=== PATIENT | male | born 1950 | race Caucasian/White ===

== ENCOUNTER 2017-10-23 06:54 | Emergency (ER) | payer OTHER, BC ==
[2017-10-23 07:15] VITALS: BP 153/78; PULSE 84; TEMP 98.3; BMI 20.7
[2017-10-23] MEDS ORDERED: ACETAMINOPHEN 500 MG TABLET (FP) PO ONE (07:41)
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
[2017-10-23] MEDS ORDERED: ACETAMINOPHEN 325 MG TABLET (FP) ONE (07:54)
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
[2017-10-23] MEDS ORDERED: oxyCODONE HCL 5 MG TABLET PO ONE (08:59)
[2017-10-23] MEDS ORDERED: oxyCODONE HCL 5 MG TABLET ONE (09:46)
--- NOTE | 2017-10-23 13:57 | CONSULT ---
Consult Consult Specialty:: Internal Medicine Referred by:: Leti Reason for Consultation:: Assess need for admission - History of Present Illness Chief Complaint: b/l hip pain History of Present Illness: 67 year old male with history of PVD, DM, afib, CKD, CHF, and HTN comes in today complaining of b/l hip pain. He reports he fell 3 days ago. Denies hitting head, loss of consciousness, lightheadedness, or dizziness. He has been able to walk but today feels as he cannot walk because he is having too much pain on b/l hips. He denies taking any analgesics at home. He denies any chest pain, sob, unilateral weakness, n/v/d, fever/chills, changes in vision and recent travel. I witnessed pt to be standing in the room without difficulty upon entering to speak to pt. Pt sat down onto stretcher as I walked in. ED findings unremarkable. Xray hips, ct pelvis negative - History Source History Provided By: Patient Limitations to Obtaining History: No Limitations - Past Medical History Cardio/Vascular: Yes: AFIB, CAD, HTN Gastrointestinal: Yes: Other (Left inguinal hernia. Small bowel obstruction) Renal/: Yes: Renal Inusuff (chronic) Endocrine: Yes: Diabetes Mellitus - Past Surgical History Past Surgical History: Yes: AAA Repair, Appendectomy, Colectomy (partial with lysis of adhesions), Permanent Pacemaker - Alcohol/Substance Use Hx Alcohol Use: No History of Substance Use: reports: None - Smoking History Smoking history: Current every day smoker Have you smoked in the past 12 months: Yes Aproximately how many cigarettes per day: 10 If you are a former smoker, when did you quit?: 2MONTHS AGO - Social History Usual Living Arrangement: With Spouse ADL: Independent Occupation: Works in [employer] History of Recent Travel: No Home Medications - Allergies Allergies/Adverse Reactions: Allergies Allergy/AdvReac Type Severity Reaction Status Date / Time No Known Drug Allergies Allergy Verified 10/23/17 07:24 - Home Medications Home Medications: Ambulatory Orders Atorvastatin Ca [Lipitor] 40 mg PO DAILY 02/27/16 Furosemide [Lasix -] 40 mg PO DAILY 02/27/16 Glyburide 10 mg PO BID 02/27/16 Linagliptin [Tradjenta] 5 mg PO DAILY 02/27/16 Tamsulosin HCl 0.4 mg PO HS 02/27/16 Clopidogrel Bisulfate [Plavix -] 75 mg PO DAILY #30 tablet 03/24/16 Metoprolol Succinate [Toprol XL -] 50 mg PO DAILY #30 tab.sr.24h 03/25/16 Amox-Tr/K Cl [Augmentin - 875Mg Tablet] 1 tab PO BID #14 tablet 05/12/16 Physical Exam Vital Signs: Vital Signs Temperature 98.3 F 10/23/17 07:13 Pulse Rate 84 10/23/17 07:13 Respiratory Rate 20 10/23/17 07:13 Blood Pressure 153/78 10/23/17 07:13 O2 Sat by Pulse Oximetry (%) 94 L 10/23/17 07:13 Constitutional: Yes: Well Nourished, No Distress Cardiovascular: Yes: Pulse Irregular. No: Gallop, Murmur, Rub Respiratory: Yes: WNL, Regular, CTA Bilaterally. No: Tachypnea, Wheezes Gastrointestinal: Yes: WNL, Normal Bowel Sounds, Soft. No: Distention, Tenderness Musculoskeletal: Yes: WNL Extremities: Yes: WNL Edema: No Neurological: Yes: WNL, Alert, Oriented Psychiatric: Yes: WNL, Alert, Oriented Imaging - Results X-ray: Report Reviewed Cat Scan: Report Reviewed Problem List - Problems (1) Pain Assessment/Plan: Pt reports moderate pain of b/l hips s/p fall 3 days ago, he reports he is not able to walk due to pain. imaging results neg. witnessed pt stand without difficulty, appears comfortable in stretcher during interaction pt requesting something stronger than tylenol such as "muscle relaxants" Code(s): R52 - PAIN, UNSPECIFIED (2) Difficulty walking Code(s): R26.2 - DIFFICULTY IN WALKING, NOT ELSEWHERE CLASSIFIED (3) Status post fall Code(s): Z91.81 - HISTORY OF FALLING Assessment/Plan Assessed and evaluated pt. imaging results and ed notes reviewed. PT note reviewed. Pt does not need to be admitted for further management. Pt can be discharged with non-opiate analgesics for pain control and follow up with PCP in 1-2 days. ED resident Leti informed.
== END 2017-10-23 14:44 | disposition home or self-care (01) ==
LOC: JER 06:54
DX: M25.552 Pain in left hip (principal); M25.551 Pain in right hip; R26.2 Difficulty in walking, not elsewhere classified; Z91.81 History of falling; I48.91 Unspecified atrial fibrillation; I50.9 Heart failure, unspecified; I25.2 Old myocardial infarction; I73.9 Peripheral vascular disease, unspecified; I12.9 Hypertensive chronic kidney disease with stage 1 through stage 4 chronic kidney disease, or unspecified chronic kidney disease; E11.22 Type 2 diabetes mellitus with diabetic chronic kidney disease; F17.210 Nicotine dependence, cigarettes, uncomplicated; N18.9 Chronic kidney disease, unspecified; Z79.84 Long term (current) use of oral hypoglycemic drugs
CPT/HCPCS: 72192-TC; 73523-TC-FY; 99284-25

== ENCOUNTER 2017-11-16 15:21 | Inpatient (IN) | payer OTHER, BC ==
--- NOTE | 2017-11-16 16:01 | PDOC ---
History of Present Illness - General History Source: Patient Exam Limitations: No Limitations - History of Present Illness Initial Comments: 11/16/17 18:58 The patient is a 67 year old male, with a significant PMH of CKD, CHF, PVD, DM, A fib, kidney disease, and HTN who presents to the emergency department with generalized weakness, SOB, dry cough, facial swelling, and groin pain over the last few days. The patient is complaining of orthopnea but denies dyspnea on exertion. The patient endorses groin pain but denies penile pain, dysuria, frequency, urgency or hematuria. The patient denies leg swelling, abdominal pain, chest pain, shortness of breath , headache and dizziness. Denies fever, chills, nausea, vomit, diarrhea and constipation. Allergies: NKA Past surgical history: None reported. Social history: No reported alcohol, drug, or cigarette use. PCP: Dr. Ruth <Mckenzie Sood - Last Filed: 11/16/17 18:57> <Evan Covarrubias - Last Filed: 11/18/17 05:13> - General Chief Complaint: Shortness of Breath Stated Complaint: SOB Time Seen by Provider: 11/16/17 15:46 Past History <Mckenzie Sood - Last Filed: 11/16/17 18:57> - Past Medical History Cardiac Disorders: Yes ([place] X2 2016, Stent, Pacemaker) CVA: Yes (MILD STROKE X2) COPD: No Diabetes: Yes GI Disorders: Yes (Intestinal blockage) HTN: Yes Hypercholesterolemia: Yes - Surgical History Abdominal Surgery: Yes (1993 AORTIC ANEURYSM) Appendectomy: Yes Cardiac Surgery: Yes (aortic aneurism repair 95',PM,STENT X 1.) - Immunization History Immunization Up to Date: Yes - Suicide/Smoking/Psychosocial Hx Smoking Status: Yes Smoking History: Current every day smoker Have you smoked in the past 12 months: Yes Number of Cigarettes Smoked Daily: 10 If you are a former smoker, when did you quit?: 2MONTHS AGO 'Breaking Loose' booklet given: 03/21/16 Hx Alcohol Use: No Drug/Substance Use Hx: No Substance Use Type: None Hx Substance Use Treatment: No <Evan Covarrubias - Last Filed: 11/18/17 05:13> - Past Medical History Allergies/Adverse Reactions: Allergies Allergy/AdvReac Type Severity Reaction Status Date / Time No Known Drug Allergies Allergy Verified 10/23/17 07:24 Home Medications: Ambulatory Orders Atorvastatin Ca [Lipitor] 40 mg PO DAILY 02/27/16 Furosemide [Lasix -] 40 mg PO DAILY 02/27/16 Glyburide 10 mg PO BID 02/27/16 Linagliptin [Tradjenta] 5 mg PO DAILY 02/27/16 Tamsulosin HCl 0.4 mg PO HS 02/27/16 Clopidogrel Bisulfate [Plavix -] 75 mg PO DAILY #30 tablet 03/24/16 Metoprolol Succinate [Toprol XL -] 50 mg PO DAILY #30 tab.sr.24h 03/25/16 Review of Systems - Review of Systems Able to Perform ROS?: Yes Comments:: 11/16/17 18:57 CONSTITUTIONAL: Reported: (+) Generalized weakness. No reported: Fever, Chills, Diaphoresis, Malaise, Loss of Appetite HEENT: No reported: Rhinorrhea, Nasal Congestion, Throat Pain, Throat Swelling, Difficulty Swallowing, Mouth Swelling, Ear Pain, Eye Pain, Visual Changes CARDIOVASCULAR: No reported: Chest Pain, Syncope, Palpitations, Irregular Heart Rate, Lightheadedness, Peripheral Edema RESPIRATORY: Reported: (+) Dry cough. (+) SOB, Orthopnea, No reported: SOB with Exertion, Wheezing, Stridor, Hemoptysis GASTROINTESTINAL: No reported: Abdominal pain, Abdominal Distension, Nausea, Vomiting, Diarrhea, Constipation, Melena, Hematochezia GENITOURINARY: Reported: (+) Groin pain. No reported: Dysuria, Frequency, Urgency, Hesitancy, Flank Pain, Genital Pain MUSCULOSKELETAL: No reported: Myalgia, Arthralgia, Joint Swelling, Back pain, Neck Pain SKIN: Reported: (+) Facial swelling. No reported: Rash, Itching, Pallor HEMEATOLOGIC/IMMUNOLOGIC: No reported: Easy Bleeding, Easy Bruising, Lymphadenopathy, Frequent infections ENDOCRINE: No reported: Unexplained Weight Gain, Unexplained Weight Loss, Heat Intolerance , Cold Intolerance NEUROLOGIC: No reported: Headache, Focal Weakness, Paresthesias, Vertigo, Lightheadedness, Unsteady Gait, Seizure, Mental Status Changes, Incontinence PSYCHIATRIC: No reported: Anxiety, Depression <Mckenzie Sood - Last Filed: 11/16/17 18:57> *Physical Exam - Vital Signs Last Vital Signs Temp Pulse Resp BP Pulse Ox 97.4 F L 73 18 134/77 88 L 11/16/17 16:25 11/16/17 18:55 11/16/17 18:55 11/16/17 18:55 11/16/17 16:25 - Physical Exam Comments: 11/16/17 18:57 GENERAL: The patient is awake, alert, and fully oriented, moderate respiratory distress, anasarcic HEAD: Normocephalic, atraumatic. EYES: extraocular movements intact, sclera anicteric, conjunctiva clear. ENT: Normal voice, Moist mucous membranes. NECK: Normal range of motion, supple LUNGS: b/l expiratory rhocchi HEART: irregular, pm/defib in L chest ABDOMEN: Soft, nontender, normoactive bowel sounds. No guarding, no rebound. . No CVA tenderness EXTREMITIES: Normal range of motion, trace edema. NEUROLOGICAL: No facial assymetry, Normal speech, PSYCH: Normal mood, normal affect. SKIN: Warm, Dry, normal turgor, <Mckenzie Sood - Last Filed: 11/16/17 18:57> Heart Score/ECG Review - ECG Impressions Comment:: 11/16/17 16:03 Twelve-lead EKG was performed and reviewed by me. Atrial sensed ventricular paced rhythm Rate of 74 <Evan Covarrubias - Last Filed: 11/18/17 05:13> ED Treatment Course - LABORATORY CBC & Chemistry Diagram: 11/16/17 16:00 11/16/17 16:00 - ADDITIONAL ORDERS Additional order review: Laboratory Results 11/16/17 11/16/17 11/16/17 16:00 16:00 16:00 PT with INR INR VBG pH 7.12 L* POC VBG pCO2 56.3 H POC VBG pO2 89.4 H Mixed VBG HCO3 17.8 L Sodium 146 H Potassium 5.3 H Chloride 114 H Carbon Dioxide 19 L D Anion Gap 13 BUN 55 H D Creatinine 3.6 H D Creat Clearance w eGFR 16.90 Random Glucose 334 H* D Lactic Acid 1.1 Calcium 7.5 L Total Bilirubin 0.4 D AST 17 D ALT 27 D Alkaline Phosphatase 213 H D Creatine Kinase 68 Troponin I 0.09 H B-Natriuretic Peptide 55511.11 H Total Protein 6.5 Albumin 2.8 L 11/16/17 16:00 PT with INR 11.20 INR 0.99 VBG pH POC VBG pCO2 POC VBG pO2 Mixed VBG HCO3 Sodium Potassium Chloride Carbon Dioxide Anion Gap BUN Creatinine Creat Clearance w eGFR Random Glucose Lactic Acid Calcium Total Bilirubin AST ALT Alkaline Phosphatase Creatine Kinase Troponin I B-Natriuretic Peptide Total Protein Albumin 11/16/17 16:00 RBC 3.16 L MCV 94.2 MCHC 32.2 RDW 23.0 H D MPV 9.3 Neutrophils % 79.0 Lymphocytes % 9.8 D Monocytes % 9.2 Eosinophils % 1.2 Basophils % 0.8 - Medications Given in the ED: ED Medications Discontinued Medications Generic Name Dose Route Start Last Admin Trade Name Freq PRN Reason Stop Dose Admin Furosemide 40 mg 11/16/17 18:24 11/16/17 18:53 Lasix Injection - IVPUSH 11/16/17 18:25 40 mg ONCE ONE Administration <Mckenzie Sood - Last Filed: 11/16/17 18:57> - LABORATORY CBC & Chemistry Diagram: 11/17/17 05:45 11/17/17 05:55 - RADIOLOGY Radiology Studies Ordered: Category Date Time Status CHEST X-RAY PORTABLE* [RAD] Stat Radiology 11/16/17 15:57 Ordered <Evan Covarrubias - Last Filed: 11/18/17 05:13> Medical Decision Making - Medical Decision Making 11/16/17 16:00 67y M hx of PVD, dm, afib s/p pm, ckd, cva, chf, htn presents with complaint of sob/ swelling for a few days. pt notes some inccreased cough w/o associated fever/chills, cp. ddx includes fluid overload due to ckd, chf, viral syndrome/pna will ck labs, cxr, ekg will reassess A portion of this note was documented by scribe services under my direction. I have reviewed the details of the note, within reason, and agree with the documentation with the following case summary and management plan written by me 11/16/17 18:04 The patient's blood work was reviewed, noted for acute on chronic renal failure Also with elevated BNP likely secondary to CHF Chest x-ray noted for R plerual effusion, pulmonary congestion with some atelectasis Will admit for further management will discuss with cardiology and renal 11/16/17 18:26 will give pt some lasix for diuresis case dw mey liriano awaiting callback from renal 11/16/17 18:46 case dw Andrew carpio, and dr. grove (hospitalist) agree with admission consdered ICU however as pt is stable otherwise will give lasix and reassess the patient CRITICAL CARE DOCUMENTATION: I spent ~35 minutes of Critical Care time, excluding separately billable procedures, involving high complexity decision making to assess, manipulate and support vital system function(s) to treat single or multiple vital organ system failure and/or to prevent further life threatening deterioration of the patient' s condition. Case discussed in detail with admitting physician including history, physical exam and ancillary studies. Admitting physician has assumed care for the patient, will follow all pending diagnostics and will complete the evaluation and treatment. <Evan Covarrubias - Last Filed: 11/18/17 05:13> *DC/Admit/Observation/Transfer - Attestations Scribe Attestion: 11/16/17 18:58 Documentation prepared by Mckenzie Sood, acting as medical scheduler for Evan Covarrubias MD. <Mckenzie Sood - Last Filed: 11/16/17 18:57> - Discharge Dispostion Admit: Yes <Evan Covarrubias - Last Filed: 11/18/17 05:13> Diagnosis at time of Disposition: Hypoxia Acute CHF Qualifiers: Heart failure type: diastolic Qualified Code(s): I50.31 - Acute diastolic ( congestive) heart failure Acute on chronic renal failure Qualifiers: Acute renal failure type: unspecified Chronic kidney disease stage: unspecified stage Qualified Code(s): N17.9 - Acute kidney failure, unspecified - Discharge Dispostion Condition at time of disposition: Guarded
[2017-11-16 16:28] VITALS: BMI 50.3
[2017-11-16 16:36] LABS: BASO % 0.8 % (0-2.0); EOS % 1.2 % (0-4.5); HEMATOCRIT 29.8 % (35.4-49); HEMOGLOBIN 9.6 GM/dL (11.7-16.9); LYMPH % 9.8 % (8-40); MCH 30.3 pg (25.7-33.7); MCHC 32.2 g/dl (32.0-35.9); MEAN CELL VOLUME 94.2 fl (80-96); MEAN PLT VOLUME 9.3 fl (7.5-11.1); MONO % 9.2 % (3.8-10.2); PLATELET COUNT 167 K/MM3 (134-434); RBC 3.16 M/mm3 (4.00-5.60); WHITE BLOOD COUNT 5.3 K/mm3 (4.0-10.0)
[2017-11-16 16:40] LABS: VENOUS PC02 56.3 mmHg (38-52); VENOUS PO2 89.4 mmHg (28-48)
[2017-11-16 16:42] LABS: VENOUS PH 7.12 (7.32-7.42)
[2017-11-16 17:01] LABS: ALBUMIN 2.8 g/dl (3.4-5.0); ANION GAP 13 (8-16); BILIRUBIN,TOTAL 0.4 mg/dL (0.2-1.0); BLOOD UREA NITROGEN 55 mg/dL (7-18); CALCIUM 7.5 mg/dL (8.5-10.1); CHLORIDE 114 mmol/L (98-107); CO2 19 mmol/L (21-32); CREATININE 3.6 mg/dL (0.7-1.3); POTASSIUM 5.3 mmol/L (3.5-5.1); SGOT/AST 17 U/L (15-37); SGPT/ALT 27 U/L (12-78); SODIUM 146 mmol/L (136-145); TOT PROT 6.5 g/dl (6.4-8.2)
[2017-11-16 17:08] LABS: INR 0.99 (0.82-1.09); PROTHROMBIN TIME (PATIENT) 11.2 SEC (9.98-11.88)
[2017-11-16 17:16] LABS: ALK PHOS 213 U/L (45-117); N-TERMINAL BNP 38230.11 pg/ml (5-125)
[2017-11-16 17:22] LABS: GLUCOSE,RANDOM 334 mg/dL (74-106)
[2017-11-16] MEDS ORDERED: FUROSEMIDE 40 MG/4 ML INJECTABLE VIAL IVPUSH ONE ×2 (18:24→21:03)
[2017-11-16] MEDS ORDERED: FUROSEMIDE 40 MG/4 ML INJECTABLE VIAL ONE ×2 (18:41→21:15)
[2017-11-16 19:08] LABS: ARTERIAL BLOOD GAS PCO2 49.3 mmHg (35-45); ARTERIAL BLOOD GAS PO2 70.5 mmHg (80-100)
[2017-11-16 19:09] LABS: ALLENS TEST POSITIVE; ARTERIAL BLD GAS O2 SATURATION 91.7 % (90-98.9)
[2017-11-16] MEDS ORDERED: methylPREDNISolone NA SUCC 125 MG/2 ML VIAL IVPUSH ONE (21:03)
--- NOTE | 2017-11-16 21:04 | HP ---
CHIEF COMPLAINT: SOB, gen weakness PCP: suzanne HISTORY OF PRESENT ILLNESS: This is a 67 year old male with a significant past medical history of CKD, CHF, Afib, HTN, SD who presented to the ED with generalized weakness and SOB. Also with dry cough and facial swelling. Pt reports only minimal improvement with treatment in ED. ER course was notable for: (1) pH 7.10 (2) BNP 38,000, trop 0.09 (3) BUN 55/Cr 3.6 Recent Travel: pt denies PAST MEDICAL HISTORY: CKD, CHF, afib, HTn, SD x2 s/p stent placement, CVA, PVD, DM PAST SURGICAL HISTORY: cardiac stent PPM aortic aneurysm repair 95 appendectomy partial colectomy with lysis of adhesions revascularization L iliac and femoral arteries, ? stent Social History: Smokin/2 PPD Alcohol: pt denies Drugs: pt denies Family History: mother age 82, no medical problems father age 55, comps DM siblings with no medical problems Allergies No Known Drug Allergies Allergy (Verified 10/23/17 07:24) HOME MEDICATIONS: 3 Medication Instructions Recorded Atorvastatin Ca [Lipitor] 40 mg PO DAILY 02/27/16 Furosemide [Lasix -] 40 mg PO DAILY 02/27/16 Glyburide 10 mg PO BID 02/27/16 Linagliptin [Tradjenta] 5 mg PO DAILY 02/27/16 Tamsulosin HCl 0.4 mg PO HS 02/27/16 Clopidogrel Bisulfate [Plavix -] 75 mg PO DAILY #30 tablet 03/24/16 Metoprolol Succinate [Toprol XL -] 50 mg PO DAILY #30 tab.sr.24h 03/25/16 Amox-Tr/K Cl [Augmentin - 875Mg 1 tab PO BID #14 tablet 05/12/16 Tablet] REVIEW OF SYSTEMS CONSTITUTIONAL: Present: generalized weakness Absent: fever, chills, diaphoresis, malaise, loss of appetite, weight change HEENT: Absent: rhinorrhea, nasal congestion, throat pain, throat swelling, difficulty swallowing, mouth swelling, ear pain, eye pain, visual changes CARDIOVASCULAR: Absent: chest pain, syncope, palpitations, irregular heart rate, lightheadedness , peripheral edema RESPIRATORY: Present: shortness of breath, dyspnea with exertion Absent: cough, orthopnea, wheezing, stridor, hemoptysis GASTROINTESTINAL: Absent: abdominal pain, abdominal distension, nausea, vomiting, diarrhea, constipation, melena, hematochezia GENITOURINARY: Absent: dysuria, frequency, urgency, hesitancy, hematuria, flank pain, genital pain MUSCULOSKELETAL: Absent: myalgia, arthralgia, joint swelling, back pain, neck pain SKIN: Absent: rash, itching, pallor HEMATOLOGIC/IMMUNOLOGIC: Absent: easy bleeding, easy bruising, lymphadenopathy, frequent infections ENDOCRINE: Absent: unexplained weight gain, unexplained weight loss, heat intolerance, cold intolerance NEUROLOGIC: Absent: headache, focal weakness or paresthesias, dizziness, unsteady gait, seizure, mental status changes, bladder or bowel incontinence PSYCHIATRIC: Absent: anxiety, depression, suicidal or homicidal ideation, hallucinations. PHYSICAL EXAMINATION Vital Signs - 24 hr 3 11/16/17 11/16/17 11/16/17 11/16/17 15:22 16:25 18:55 19:40 Temperature 97.4 F L Pulse Rate 88 88 Pulse Rate [ 73 Left] Respiratory 25 H 18 18 Rate Blood Pressure 112/60 Blood Pressure 134/77 [Right] O2 Sat by Pulse 98 88 L 96 Oximetry (%) GENERAL: Awake, alert, and fully oriented, in no acute distress. HEAD: Normal with no signs of trauma. EYES: Pupils equal, round and reactive to light, extraocular movements intact, sclera anicteric, conjunctiva clear. No lid lag. EARS, NOSE, THROAT: Ears normal, nares patent, oropharynx clear without exudates. Moist mucous membranes. NECK: Normal range of motion, supple without lymphadenopathy, JVD, or masses. LUNGS: + expiratory wheezing. No accessory muscle use. HEART: Regular rate and rhythm, normal S1 and S2 without murmur, rub or gallop. ABDOMEN: Soft, nontender, not distended, normoactive bowel sounds, no guarding, no rebound, no masses. No hepatomegaly or splenomegaly. MUSCULOSKELETAL: Normal range of motion at all joints. No bony deformities or tenderness. No CVA tenderness. UPPER EXTREMITIES: 2+ pulses, warm, well-perfused. No cyanosis. No clubbing. No peripheral edema. LOWER EXTREMITIES: 2+ pulses, warm, well-perfused. No calf tenderness. No peripheral edema. NEUROLOGICAL: Cranial nerves II-XII intact. Normal speech. Normal gait. PSYCHIATRIC: Cooperative. Good eye contact. Appropriate mood and affect. SKIN: Warm, dry, normal turgor, no rashes or lesions noted, normal capillary refill. Laboratory Results - last 24 hr 3 11/16/17 11/16/17 11/16/17 16:00 16:00 16:00 WBC 5.3 RBC 3.16 L Hgb 9.6 L D Hct 29.8 L MCV 94.2 MCH 30.3 MCHC 32.2 RDW 23.0 H D Plt Count 167 MPV 9.3 Neutrophils % 79.0 Lymphocytes % 9.8 D Monocytes % 9.2 Eosinophils % 1.2 Basophils % 0.8 PT with INR 11.20 INR 0.99 Anticoagulation Therapy Puncture Site ABG pH ABG pCO2 at Pt Temp ABG pO2 at Pt Temp ABG HCO3 ABG O2 Sat (Measured) ABG O2 Content ABG Base Excess Frank Test VBG pH POC VBG pCO2 POC VBG pO2 Mixed VBG HCO3 O2 Delivery Device Oxygen Flow Rate Vent Mode Vent Rate Mechanical Rate Pressure Support Vent Sodium 146 H Potassium 5.3 H Chloride 114 H Carbon Dioxide 19 L D Anion Gap 13 BUN 55 H D Creatinine 3.6 H D Creat Clearance w eGFR 16.90 Random Glucose 334 H* D Lactic Acid Calcium 7.5 L Total Bilirubin 0.4 D AST 17 D ALT 27 D Alkaline Phosphatase 213 H D Creatine Kinase 68 Troponin I 0.09 H B-Natriuretic Peptide 20076.11 H Total Protein 6.5 Albumin 2.8 L 3 11/16/17 11/16/17 11/16/17 16:00 16:00 18:50 WBC RBC Hgb Hct MCV MCH MCHC RDW Plt Count MPV Neutrophils % Lymphocytes % Monocytes % Eosinophils % Basophils % PT with INR INR Anticoagulation Therapy No Result Required. Puncture Site Right radial ABG pH 7.10 L* D ABG pCO2 at Pt Temp 49.3 H ABG pO2 at Pt Temp 70.5 L D ABG HCO3 17.7 L ABG O2 Sat (Measured) 91.7 ABG O2 Content 12.4 L ABG Base Excess No Result Required. Frank Test Positive VBG pH 7.12 L* POC VBG pCO2 56.3 H POC VBG pO2 89.4 H Mixed VBG HCO3 17.8 L O2 Delivery Device No Result Required. Oxygen Flow Rate Yes Vent Mode No Result Required. Vent Rate No Result Required. Mechanical Rate No Result Required. Pressure Support Vent No Result Required. Sodium Potassium Chloride Carbon Dioxide Anion Gap BUN Creatinine Creat Clearance w eGFR Random Glucose Lactic Acid 1.1 Calcium Total Bilirubin AST ALT Alkaline Phosphatase Creatine Kinase Troponin I B-Natriuretic Peptide Total Protein Albumin Radiology Reports ECG Atrial sensed, ventricular paced vent rate 74, QTC 557 ASSESSMENT/PLAN: 67yM with PMH CKD, CHF, afib, HTn, SD x2 s/p stent placement, CVA, PVD, DM presented to the ED with generalized weakness, SOB, facial swelling. CHF exac - given lasix in ED 40mg x 1. no urine output yet, will given another 40mg x 1 - echo ordered - cardiology consult elevated troponin - leak likely related to CHF and KELLI rather than true ischemic event - pt denies Chest pain - trend trops acute wheezing - likely undiagnosed copd as pt is active smoker - solumedrol 125 x 1 - duoneb now and qid, reassess need in am KELLI with CKD/metabolic acidosis - nephrology consult - urinalysis pending - renal sono ordered - ?cardio-renal syndrome afib - not on AC, unclear why, cards to follow - paced rhythm DVT PPX - heparin 5000u TID FEN - tolerating po - BMP in am - low sodium/diabetic diet. Dispo: Pt currently requires inpatient management of his emergent condition. Visit type - Emergency Visit Emergency Visit: Yes ED Registration Date: 11/16/17 Care time: The patient presented to the Emergency Department on the above date and was hospitalized for further evaluation of their emergent condition. - New Patient This patient is new to me today: Yes Date on this admission: 11/16/17 - Critical Care Critical Care patient: No Hospitalist Screening - Colonoscopy Questionnaire Colonoscopy Questionnaire: Colonoscopy Questionnaire - Patient: 50 - 75 years old and never had a screening colonoscopy: Unknown History of colon or rectal polyps, or CA: No History of IBD, Crohn's disease or UC: No History of abdominal radiation therapy as a child: No - Relative: 1 with colon or rectal CA, or polyps at age 60 or younger: No Colon or rectal CA diagnosed at age 45 or younger: No Multiple relatives with colon or rectal CA: No - Outcome: Screening Result: Negative Screen
[2017-11-16] MEDS ORDERED: ALBUTEROL SO4 2.5/IPRATROPIUM 0.5 INH SOL 3 ML VIAL.NEB. NEB ONE (21:15)
[2017-11-16] MEDS ORDERED: methylPREDNISolone NA SUCC 125 MG/2 ML VIAL ONE (21:15)
[2017-11-16] MEDS: ALBUTEROL SO4 2.5/IPRATROPIUM 0.5 INH SOL 3 ML VIAL.NEB. NEB SCH ×2 (21:15→21:34)
[2017-11-16 22:15] LABS: URINE APPEARANCE CLOUDY; URINE BILIRUBIN NEGATIVE (<2.0 mg/dL); URINE COLOR LTYELLOW; URINE GLUCOSE (UA) 2+ (NEGATIVE); URINE KETONE NEGATIVE (NEGATIVE); URINE NITRITE NEGATIVE (NEGATIVE); URINE UROBILINOGEN NEGATIVE mg/dL (0.2-1.0)
[2017-11-16 22:42] LABS: URINE LEUK ESTERASE 1+ (NEGATIVE); URINE PROTEIN 2+ (NEGATIVE)
[2017-11-16 22:46] LABS: EPI CELLS RARE /HPF (FEW); URINE BACTERIA RARE /hpf (NONE SEEN); URINE MUCUS RARE
[2017-11-17] MEDS ORDERED: TAMSULOSIN HCL 0.4 MG CAP.ER.24H (FP) ONE (00:02)
[2017-11-17] MEDS ORDERED: HEPARIN NA (PORCINE) 5,000 UNITS/ML 1ML VIAL ONE ×2 (00:03→06:18)
[2017-11-17] MEDS ORDERED: INSULIN (NOVOLOG) ASPART 100 UNITS/ML 10ML VIAL ONE ×3 (00:03→07:43)
[2017-11-17] MEDS: TAMSULOSIN HCL 0.4 MG CAP.ER.24H (FP) PO SCH ×2 (00:23→22:25)
[2017-11-17] MEDS: HEPARIN NA (PORCINE) 5,000 UNITS/ML 1ML VIAL SQ SCH ×5 (00:23→22:24)
[2017-11-17] MEDS: INSULIN SLIDING SCALE (NOVOLOG) 1 VIAL SQ SCH ×5 (00:23→22:25)
[2017-11-17 06:30] LABS: BASO % 0.2 % (0-2.0); EOS % 0.1 % (0-4.5); HEMATOCRIT 29.4 % (35.4-49); HEMOGLOBIN 9.4 GM/dL (11.7-16.9); LYMPH % 3.9 % (8-40); MCH 29.8 pg (25.7-33.7); MEAN CELL VOLUME 93.1 fl (80-96); MEAN PLT VOLUME 9.1 fl (7.5-11.1); MONO % 1.3 % (3.8-10.2); NEUT % 94.5 % (42.8-82.8); PLATELET COUNT 178 K/MM3 (134-434); RBC 3.16 M/mm3 (4.00-5.60); RDW 23.2 % (11.9-15.9); WHITE BLOOD COUNT 5.8 K/mm3 (4.0-10.0)
[2017-11-17 06:48] LABS: ANION GAP 10 (8-16); BLOOD UREA NITROGEN 54 mg/dL (7-18); CALCIUM 7.4 mg/dL (8.5-10.1); CHLORIDE 116 mmol/L (98-107); CO2 20 mmol/L (21-32); CREATININE 3.5 mg/dL (0.7-1.3); GLUCOSE,RANDOM 198 mg/dL (74-106); MAGNESIUM 2.6 mg/dL (1.8-2.4); POTASSIUM 5.2 mmol/L (3.5-5.1); SODIUM 146 mmol/L (136-145)
[2017-11-17 07:00] LABS: ADD RBC MORPHOLOGY YES
--- NOTE | 2017-11-17 09:58 | EKG ---
Test Reason : Blood Pressure : / mmHG Vent. Rate : 074 BPM Atrial Rate : 074 BPM P-R Int : 128 ms QRS Dur : 162 ms QT Int : 502 ms P-R-T Axes : 024 -78 096 degrees QTc Int : 557 ms Atrial-sensed ventricular-paced rhythm ABNORMAL ECG WHEN COMPARED WITH ECG OF 21-MAR-2016 19:57, VENT. RATE HAS INCREASED BY 5 BPM Confirmed by DESMOND MENDOZA MD ([id number]) on 11/17/2017 9:57:57 AM Referred By: Confirmed By:DESMOND MENDOZA MD
[2017-11-17] MEDS ORDERED: FUROSEMIDE 40 MG TABLET (FP) PO SCH (10:00)
--- NOTE | 2017-11-17 10:41 | CONSULT ---
Consult - text type - Consultation Consultation Note: Renal Consult for for KELLI on CKD This is a 67 year old gentleman with PMhx of CKD Stage 3, CHF, AFib, Hypertension who presented with weakness and sob and found to have CHF exacerbation with KELLI. Pt reports that he has been having progressive SOB and leg swelling despite being on oral diuretics. Denies any CP, N/V/D, or decreed appetite. Denies any NSAID use, contrast exposure or skin rash. Denies any flank pain, dysuria, hematuria. No Abd pain. Feels a littler better s/p IV Lasix. PMHx: as above Allergies: NKDA Family Hx: NC Social Hx: No T/A/D ROS: as per HPI Home Medications Medication Instructions Recorded Atorvastatin Ca [Lipitor] 40 mg PO DAILY 02/27/16 Furosemide [Lasix -] 40 mg PO DAILY 02/27/16 Glyburide 10 mg PO BID 02/27/16 Linagliptin [Tradjenta] 5 mg PO DAILY 02/27/16 Tamsulosin HCl 0.4 mg PO HS 02/27/16 Clopidogrel Bisulfate [Plavix -] 75 mg PO DAILY #30 tablet 03/24/16 Metoprolol Succinate [Toprol XL -] 50 mg PO DAILY #30 tab.sr.24h 03/25/16 Vital Signs Temperature 99.1 F 11/17/17 08:22 Pulse Rate 77 11/17/17 08:22 Respiratory Rate 17 11/17/17 08:22 Blood Pressure 153/81 11/17/17 08:22 O2 Sat by Pulse Oximetry (%) 100 11/17/17 08:22 Intake & Output 11/14/17 11/15/17 11/16/17 11/17/17 23:59 23:59 23:59 23:59 Weight 150 kg NAD, awake and alert MMM, No JVD, neck supple RRR, No M/R Decreased BS right lung bases, no rales/wheeze soft NT/ND, no bladder distension Trace to 1+ LE edema, no cyanosis, clubbing or erythema no focal neurological defects CBC, BMP 11/17/17 05:45 11/17/17 05:55 Laboratory Tests 11/16/17 11/16/17 11/16/17 16:00 18:50 21:30 MCV ABG pH 7.10 L* D ABG pCO2 at Pt Temp 49.3 H ABG pO2 at Pt Temp 70.5 L D Calcium Phosphorus Magnesium Troponin I 0.09 H Albumin 2.8 L Urine Protein 2+ H Urine Glucose (UA) 2+ H Urine Blood 1+ H Ur Leukocyte Esterase 1+ H 11/17/17 11/17/17 05:45 05:55 MCV 93.1 ABG pH ABG pCO2 at Pt Temp ABG pO2 at Pt Temp Calcium 7.4 L Phosphorus 5.0 H D Magnesium 2.6 H D Troponin I 0.06 H D Albumin Urine Protein Urine Glucose (UA) Urine Blood Ur Leukocyte Esterase Current Medications Atorvastatin Calcium (Lipitor -) 40 mg PO HS [facility] Clopidogrel Bisulfate (Plavix -) 75 mg PO DAILY [facility] Heparin Sodium (Porcine) (Heparin -) 5,000 unit SQ TID [facility] Last Admin: 11/17/17 06:38 Dose: 5,000 unit Insulin Aspart (Novolog Vial Sliding Scale -) 1 vial SQ HS [facility] PRN Reason: Protocol Last Admin: 11/17/17 00:23 Dose: 2 unit Insulin Aspart (Novolog Vial Sliding Scale -) 1 vial SQ TIDAC [facility] PRN Reason: Protocol Last Admin: 11/17/17 07:45 Dose: 3 units Metoprolol Succinate (Toprol Xl -) 50 mg PO DAILY [facility] Tamsulosin HCl (Flomax -) 0.4 mg PO HS [facility] Last Admin: 11/17/17 00:23 Dose: 0.4 mg 67 year old gentleman with PMhx of CKD Stage 3, CHF, AFib, Hypertension who presented with weakness and sob and found to have CHF exacerbation with KELLI #KELLI on CKD: Likely from Cardio-renal syndrome vs. obstruction and less likely GN #SOB secondary to CHF exacerbation #Unilateral Pleural effusion #Mixed Respiratory and Metabolic acidosis #Hypernatremia #Hyperkalemia Renal Us done, read is pending check Urine for FeUrea, UPCR Continue IV Lasix BID Trend BUN/Cr Q12h f/u cardiology work up Repeat ABG this am, may need BIPAP if Ph remains low and has CO2 retention consider pulmonary eval, may need thoracenteiss oral water intake as tolerated low salt and potassium diet strict I and O Dose all meds for CrCl less then 20 no acute indication for [facility] Thank you Will follow Beau Iraheta DO
--- NOTE | 2017-11-17 11:29 | CON.CARD ---
Cardiology Consult (text) - Consultation Consultation Note: cc: sob hpi: 67 m hx cad s/p nstemi/pci (11/2014 pt had chf with +trops so sent for cath [facility] and had rota and GIOVANNI to pLAD, residual dLCx and ramus 50-60% both), dchf, htn, hld, dm, ckd, afib on coumadin, cva, ppm (biotronik 05/2012), remote AAA repair, pad s/p left fem stent 2015 and left toe amp here with sob. No cp, palps, dizzy, loc, pnd, orthopnea, le edema. Feeling better after iv lasix. Sees me for cardio. pmh: per hpi psh: appendectomy fam: nc social: ex tob ros: per hpi; no fever, diarrhea, cough, nasal congestion, wt loss, rash, dizzy , ESCOBEDO, vision changes meds: Home Medications Medication Instructions Recorded Atorvastatin Ca [Lipitor] 40 mg PO DAILY 02/27/16 Furosemide [Lasix -] 40 mg PO DAILY 02/27/16 Glyburide 10 mg PO BID 02/27/16 Linagliptin [Tradjenta] 5 mg PO DAILY 02/27/16 Tamsulosin HCl 0.4 mg PO HS 02/27/16 Clopidogrel Bisulfate [Plavix -] 75 mg PO DAILY #30 tablet 03/24/16 Metoprolol Succinate [Toprol XL -] 50 mg PO DAILY #30 tab.sr.24h 03/25/16 Current Medications Generic Name Dose Route Start Last Admin Trade Name Freq PRN Reason Stop Dose Admin Atorvastatin Calcium 40 mg 11/17/17 22:00 Lipitor - PO HS DAGO Clopidogrel Bisulfate 75 mg 11/17/17 10:00 Plavix - PO DAILY DAGO Furosemide 40 mg 11/17/17 11:45 Lasix Injection - IVPUSH DAILY [facility] Heparin Sodium (Porcine) 5,000 unit 11/16/17 06:00 11/17/17 06:38 Heparin - SQ 5,000 unit TID DAGO Administration Insulin Aspart 1 vial 11/16/17 22:00 11/17/17 00:23 Novolog Vial Sliding Scale - SQ 2 unit HS DAGO Administration Protocol Insulin Aspart 1 vial 11/17/17 07:00 11/17/17 07:45 Novolog Vial Sliding Scale - SQ 3 units TIDAC [facility]AG[facility] Administration Protocol Metoprolol Succinate 50 mg 11/17/17 10:00 Toprol Xl - PO DAILY [facility]AG[facility] Tamsulosin HCl 0.4 mg 11/16/17 22:00 11/17/17 00:23 Flomax - PO 0.4 mg HS DAGO Administration pe: Vital Signs Period Temp Pulse Resp BP Sys/Lauren Pulse Ox Last 24 Hr 97.4 F-99.1 F 73-89 17-25 112-153/60-81 88-100 nad, no jvd rrr s1s2 no mrg cta bl nl eff aaox3 no le e/c/c abd nt nd pos bs pos dp pt no jaundice diaphoresis cxr: chf, right eff ecg vpaced, underlying appears aflutter echo 11/2014: nl lv/rv, mod-sev mr, sev tr, sev phtn echo 02/2015: mild lv dil, nl lvef, basal post-lat HK, nl rv size/fcn, severe biatrial dil, sev mr, sev tr, sev phtn, mod pr echo 11/2016: low nl lvef, mild lvh, nl rv, mitra, mod mr/tr, mod phtn mibi 11/2016: no ischemia a/p: 67 m hx cad s/p nstemi/pci (11/2014 pt had chf with +trops so sent for cath [facility] and had rota and GIOVANNI to pLAD, residual dLCx and ramus 50-60% both), dchf, htn, hld, dm, ckd, afib on coumadin, cva, ppm (biotronik 05/2012), remote AAA repair, pad s/p left fem stent 2015 and left toe amp here with sob. sob, acute diastolic chf: -mild vol overload, pt feels better after iv lasix -no signs acs -echo pending -will cont iv lasix 40 qd ana on ckd: -possible cardiorenal, monitor cr with iv lasix -renal consulted cad/pci: -stable, no cp/angina/acs -preserved lvef on recent echo. no ischemia on recent mibi -cont home bb, statin, plavix htn: -cont bb hld: -cont statin afib,aflutter,atach: -rate controlled as pt has complete heart block with ppm -Has hx of cva and was on AC previously before a prior GIB, then resumed after GIB but then had ?aortoenteric fistula and when hospitalized at [facility] AC stopped again. Cont plavix. ppm (biotronik for CHB): -Normal fcn on recent office check, next routine check planned 11/2017 remote aaa repair: -stable, continue bp control. phtn: -severe on prior echo when pt was in decompensated chf -after diuresis his RHC showed normal PAP so likely phtn related to volume overload/chf
[2017-11-17 12:11] LABS: ANISOCYTOSIS 3+; MACROCYTOSIS 1+
[2017-11-17] MEDS ORDERED: SODIUM BICARBONATE 650 MG TABLET PO SCH (12:30)
[2017-11-17 12:43] LABS: ARTERIAL BLOOD GAS BASE EXCESS -8.2 meq/l (-2-2); ARTERIAL BLOOD GAS PCO2 42.4 mmHg (35-45); ARTERIAL BLOOD GAS PO2 77.3 mmHg (80-100); ARTERIAL BLOOD GAS pH 7.25 (7.35-7.45)
[2017-11-17 12:44] LABS: ALLENS TEST POSITIVE
[2017-11-17] MEDS: FUROSEMIDE 40 MG/4 ML INJECTABLE VIAL IVPUSH SCH (12:48)
[2017-11-17] MEDS: CLOPIDOGREL BISULFATE 75 MG TABLET (FP) PO SCH (12:48)
--- NOTE | 2017-11-17 13:43 | PN ---
Progress Note (short form) - Note Progress Note: PULMONARY CONSULTATION DICTATED 11/17/17 IMP DYSPNEA SECONDARY TO DECOMPENSATED CHF ASHD S/P STENT DIASTOLIC HF R PLEURAL EFFUSION PULMONARY HTN AFIB S/P PPM PULMONARY HTN DM ACUTE ON CHRONIC KIDNEY DISEASE AAA S/P REPAIR PVD HTN PLAN IV LASIX O2 DAILY WTS F/U CHEST X-RAYS PLAVIX DR SO Problem List - Problems (1) Acute CHF Code(s): I50.9 - HEART FAILURE, UNSPECIFIED Qualifiers: Heart failure type: unspecified Qualified Code(s): I50.9 - Heart failure, unspecified (2) Acute on chronic renal failure Code(s): N17.9 - ACUTE KIDNEY FAILURE, UNSPECIFIED; N18.9 - CHRONIC KIDNEY DISEASE, UNSPECIFIED Qualifiers: Acute renal failure type: unspecified Chronic kidney disease stage: unspecified stage Qualified Code(s): N17.9 - Acute kidney failure, unspecified ; N18.9 - Chronic kidney disease, unspecified; N18.9 - Chronic kidney disease, unspecified (3) Hypoxia Code(s): R09.02 - HYPOXEMIA (4) Atrial fibrillation Code(s): I48.91 - UNSPECIFIED ATRIAL FIBRILLATION Qualifiers: Atrial fibrillation type: paroxysmal Qualified Code(s): I48.0 - Paroxysmal atrial fibrillation (5) Congestive heart failure Code(s): I50.9 - HEART FAILURE, UNSPECIFIED Qualifiers: Qualified Code(s): I50.22 - Chronic systolic (congestive) heart failure (6) Coronary artery disease Code(s): I25.10 - ATHSCL HEART DISEASE OF [place] CORONARY ARTERY W/O ANG PCTRS Qualifiers: Coronary Disease-Associated Artery/Lesion type: [place] coronary artery [place] vs. transplanted heart: [place] heart Associated angina: without angina pectoris (7) Diabetes Code(s): E11.9 - TYPE 2 DIABETES MELLITUS WITHOUT COMPLICATIONS Qualifiers: Diabetes mellitus type: type 2 Diabetes mellitus complication status: with circulatory complication (8) NSTEMI (non-ST elevated myocardial infarction) Code(s): I21.4 - NON-ST ELEVATION (NSTEMI) MYOCARDIAL INFARCTION (9) Peripheral vascular disease Code(s): I73.9 - PERIPHERAL VASCULAR DISEASE, UNSPECIFIED
--- NOTE | 2017-11-17 14:31 | CONS ---
DATE OF CONSULTATION: 11/17/2017 REFERRING PHYSICIAN: Bib Romero MD HISTORY OF PRESENT ILLNESS: The patient is a 67-year-old white male with an extensive past medical history which includes ASHD, status post non-ST MD in November of 2014, congestive heart failure, history of status post drug-eluting stent, LAD, diastolic congestive heart failure, hypertension, hyperlipidemia, chronic kidney disease, diabetes, atrial fibrillation maintained on Coumadin, history of CVA, status post permanent pacemaker, history of remote AAA repair, status post left femoral stent in 2015, left toe amputation, longstanding history of tobacco use, currently still smoking a half-pack a day for greater than 50 years, who was admitted to [facility] with complaint of 2-day history of increasing shortness of breath. Patient denied any complaint of chest pain, nausea, vomiting, diaphoresis. He denied any fevers. He said he may have had a little cold. However, the patient stated the symptoms continued to worsen, at which time, he presented to the emergency room. In the ER, he was given IV Lasix with good clinical response and telemetry further monitoring. Patient denies any history of respiratory failure in the past. No ventilatory support. He does have a history of occupational exposure. 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 He denies any recent travel. PAST MEDICAL HISTORY: Again includes chronic kidney disease, ASHD, status post stents, status post MD, congestive heart failure, diastolic CHF, atrial fibrillation, status post permanent pacemaker, hypertension, history of AAA repair, peripheral vascular disease, status post femoral stent, hyperlipidemia, CVA, and left toe amputation. REVIEW OF SYSTEMS: Positive for dyspnea. Minimal cough. No chest pain. No palpitations. No fever. No chills. No hemoptysis. No abdominal pain. Positive for lower extremity edema. CURRENT MEDICATIONS: Include sodium bicarbonate, Flomax, heparin, Toprol XL, Lipitor, NovoLog, Lasix 40 mg, Plavix. PHYSICAL EXAMINATION: General: The patient is a well-developed, well-nourished male, awake, alert, currently in no acute distress. Vital signs: He is currently afebrile, heart rate is 77 and irregular, blood pressure is 132/72, respiratory rate is 17, O2 saturation is 100% on 4 L. HEENT: Head is normocephalic atraumatic. Neck: Supple. Heart: Irregular with S1, S2. Chest: Bibasilar crackles. Abdomen: Soft. Bowel sounds positive. Extremities: No cyanosis or edema. LABORATORIES: WBC is 5.8, hemoglobin 9.4, hematocrit 29.4, platelet count of 173,000. Blood gas pH 7.25, pCO2 of 42, pO2 of 77, bicarbonate of 18, saturation of 95. INR is 0.99. Chest x-ray revealed right pleural effusion moderate sized, mild pulmonary vascular congestion. IMPRESSION: 1. Dyspnea likely secondary to decompensated congestive heart failure. 2. Diastolic heart failure. 3. Acute on chronic renal failure, kidney disease. 4. Metabolic acidosis. 5. Right pleural effusion, likely secondary to congestive heart failure. 6. Atherosclerotic heart disease status post drug-eluting stents. 7. History of cerebrovascular accident. 8. Atrial fibrillation, status post permanent pacemaker. 9. Hypertension. 10. Hyperlipidemia. 11. Pulmonary hypertension. PLAN: Continue IV Lasix, supplemental O2, obtain followup chest x-rays, daily weights, monitor renal function, sodium bicarbonate, follow blood gases. Thank you. Will follow closely with you. KENRICK SO M.D. [id number]
--- NOTE | 2017-11-17 16:11 | PN ---
Progress Note, Physician Chief Complaint: Mr Howard says he is not feeling well but cannot characterize why. Denies cp, sob, n/v. Endorses general malaise and fatigue. - Current Medication List Current Medications: Active Medications Atorvastatin Calcium (Lipitor -) 40 mg PO HS [facility] Clopidogrel Bisulfate (Plavix -) 75 mg PO DAILY [facility] Last Admin: 11/17/17 12:48 Dose: 75 mg Furosemide (Lasix Injection -) 40 mg IVPUSH DAILY [facility] Last Admin: 11/17/17 12:48 Dose: 40 mg Heparin Sodium (Porcine) (Heparin -) 5,000 unit SQ TID [facility] Last Admin: 11/17/17 13:19 Dose: 5,000 unit Insulin Aspart (Novolog Vial Sliding Scale -) 1 vial SQ HS [facility] PRN Reason: Protocol Last Admin: 11/17/17 00:23 Dose: 2 unit Insulin Aspart (Novolog Vial Sliding Scale -) 1 vial SQ TIDAC [facility] PRN Reason: Protocol Last Admin: 11/17/17 07:45 Dose: 3 units Metoprolol Succinate (Toprol Xl -) 50 mg PO DAILY [facility] Last Admin: 11/17/17 12:48 Dose: 50 mg Sodium Bicarbonate (Sodium Bicarbonate -) 650 mg PO DAILY [facility] Last Admin: 11/17/17 12:48 Dose: 650 mg Tamsulosin HCl (Flomax -) 0.4 mg PO [facility] Last Admin: 11/17/17 00:23 Dose: 0.4 mg - Objective Vital Signs: Vital Signs Temperature 36.5 C 11/17/17 15:00 Pulse Rate 77 11/17/17 15:00 Respiratory Rate 18 11/17/17 15:00 Blood Pressure 128/81 11/17/17 15:00 O2 Sat by Pulse Oximetry (%) 100 11/17/17 12:04 Constitutional: Yes: Well Nourished, No Distress, Calm Cardiovascular: Yes: Regular Rate and Rhythm. No: Gallop, Murmur, Rub Respiratory: Yes: Regular, On Nasal O2, Rhonchi. No: CTA Bilaterally, Rales, Wheezes Gastrointestinal: Yes: Normal Bowel Sounds, Soft. No: Distention, Tenderness Extremities: Yes: Erythema Edema: Yes Edema: LLE: 1+, RLE: 1+ Labs: CBC, BMP 11/17/17 05:45 11/17/17 05:55 INR, PTT INR 0.99 (0.82-1.09) 11/16/17 16:00 Problem List - Problems (1) Acute CHF Assessment/Plan: -patient presents with acute diastolic CHF exacerbation -s/p lasix, slightly improved -cardiology consulted and note reviewed -continue IV lasix -strict I/Os -nephrology following secondary to KELLI on CKD Code(s): I50.9 - HEART FAILURE, UNSPECIFIED Qualifiers: Heart failure type: diastolic Qualified Code(s): I50.31 - Acute diastolic ( congestive) heart failure (2) Acute on chronic renal failure Assessment/Plan: -nephrology following -? cardiorenal syndrome -continue lasix Code(s): N17.9 - ACUTE KIDNEY FAILURE, UNSPECIFIED; N18.9 - CHRONIC KIDNEY DISEASE, UNSPECIFIED Qualifiers: Acute renal failure type: unspecified Chronic kidney disease stage: unspecified stage Qualified Code(s): N17.9 - Acute kidney failure, unspecified ; N18.9 - Chronic kidney disease, unspecified; N18.9 - Chronic kidney disease, unspecified (3) Hypoxia Assessment/Plan: -secondary to CHF exacebation -appreciate pulmonary assistance Code(s): R09.02 - HYPOXEMIA (4) Atrial fibrillation Assessment/Plan: -sounds in sinus rhythm on exam today -cardiology following -continue plavix, not on AC Code(s): I48.91 - UNSPECIFIED ATRIAL FIBRILLATION Qualifiers: Atrial fibrillation type: paroxysmal Qualified Code(s): I48.0 - Paroxysmal atrial fibrillation (5) Diabetes Assessment/Plan: -diabetic diet and SSI Code(s): E11.9 - TYPE 2 DIABETES MELLITUS WITHOUT COMPLICATIONS Qualifiers: Diabetes mellitus type: type 2 Diabetes mellitus complication status: with circulatory complication (6) Hypertension Assessment/Plan: -well controlled -continue toprol xl -on IV lasix for CHF Code(s): I10 - ESSENTIAL (PRIMARY) HYPERTENSION Qualifiers: Hypertension type: essential hypertension Qualified Code(s): I10 - Essential (primary) hypertension
[2017-11-17] MEDS: SODIUM BICARBONATE 650 MG TABLET PO SCH (22:25)
[2017-11-17] MEDS: ATORVASTATIN CA 40 MG TABLET (FP) PO SCH (22:25)
[2017-11-18] MEDS: HEPARIN NA (PORCINE) 5,000 UNITS/ML 1ML VIAL SQ SCH ×3 (06:35→23:40)
[2017-11-18] MEDS: INSULIN SLIDING SCALE (NOVOLOG) 1 VIAL SQ SCH ×4 (06:35→23:40)
[2017-11-18 07:29] LABS: BASO % 0.1 % (0-2.0); HEMATOCRIT 25.8 % (35.4-49); HEMOGLOBIN 8.4 GM/dL (11.7-16.9); MCH 29.9 pg (25.7-33.7); MCHC 32.4 g/dl (32.0-35.9); MEAN CELL VOLUME 92.2 fl (80-96); MEAN PLT VOLUME 9.1 fl (7.5-11.1); MONO % 8.6 % (3.8-10.2); NEUT % 83.3 % (42.8-82.8); PLATELET COUNT 150 K/MM3 (134-434); RDW 22.5 % (11.9-15.9); WHITE BLOOD COUNT 6.5 K/mm3 (4.0-10.0)
[2017-11-18 07:49] LABS: ALBUMIN 2.5 g/dl (3.4-5.0); ANION GAP 4 (8-16); BLOOD UREA NITROGEN 61 mg/dL (7-18); CALCIUM 7.2 mg/dL (8.5-10.1); CHLORIDE 115 mmol/L (98-107); CO2 24 mmol/L (21-32); GLUCOSE,RANDOM 155 mg/dL (74-106); MAGNESIUM 2.3 mg/dL (1.8-2.4); PHOSPHOROUS 5.6 mg/dL (2.5-4.9); POTASSIUM 5.4 mmol/L (3.5-5.1); SODIUM 143 mmol/L (136-145)
[2017-11-18 07:52] LABS: ALK PHOS 175 U/L (45-117); BILIRUBIN,TOTAL 0.3 mg/dL (0.2-1.0); CREATININE 3.6 mg/dL (0.7-1.3); SGOT/AST 11 U/L (15-37); SGPT/ALT 29 U/L (12-78); TOT PROT 5.7 g/dl (6.4-8.2)
[2017-11-18] MEDS: SODIUM BICARBONATE 650 MG TABLET PO SCH ×2 (10:22→23:40)
[2017-11-18] MEDS: FUROSEMIDE 40 MG/4 ML INJECTABLE VIAL IVPUSH SCH (10:22)
[2017-11-18] MEDS: CLOPIDOGREL BISULFATE 75 MG TABLET (FP) PO SCH (10:22)
--- NOTE | 2017-11-18 15:01 | PN ---
Progress Note (short form) - Note Progress Note: Subjective: The patient was seen and examined at the bedside he reports improved breathing and states he is overall feeling better. Current Medications Generic Name Dose Route Start Last Admin Trade Name Connie PRN Reason Stop Dose Admin Atorvastatin Calcium 40 mg 11/17/17 22:00 11/17/17 22:25 Lipitor - PO 40 mg HS [facility] Administration Clopidogrel Bisulfate 75 mg 11/17/17 10:00 11/18/17 10:22 Plavix - PO 75 mg DAILY [facility] Administration Furosemide 40 mg 11/17/17 11:45 11/18/17 10:22 Lasix Injection - IVPUSH 40 mg DAILY [facility] Administration Heparin Sodium (Porcine) 5,000 unit 11/16/17 06:00 11/18/17 06:35 Heparin - SQ 5,000 unit TID [facility] Administration Insulin Aspart 1 vial 11/16/17 22:00 11/17/17 22:25 Novolog Vial Sliding Scale - SQ 4 unit HS [facility] Administration Protocol Insulin Aspart 1 vial 11/17/17 07:00 11/18/17 12:21 Novolog Vial Sliding Scale - SQ 2 units TIDAC [facility] Administration Protocol Metoprolol Succinate 50 mg 11/17/17 10:00 11/18/17 10:22 Toprol Xl - PO 50 mg DAILY [facility] Administration Sodium Bicarbonate 650 mg 11/17/17 22:00 11/18/17 10:22 Sodium Bicarbonate - PO 650 mg BID [facility] Administration Tamsulosin HCl 0.4 mg 11/16/17 22:00 11/17/17 22:25 Flomax - PO 0.4 mg HS [facility] Administration Objective: Vital Signs Period Temp Pulse Resp BP Sys/Lauren Pulse Ox Last 24 Hr 97.9 F-98.7 F 76-80 18-18 125-150/56-80 97-97 Physical Exam: General: NAD, A&Ox3 Lungs: Decreased breath sounds on the right Heart: RRR, S1S2 Abd: Soft, non-tender Ext: RLE 2+ pitting edema. LLE 1+ pitting edema CBCD WBC 6.5 K/mm3 (4.0-10.0) 11/18/17 06:49 RBC 2.80 M/mm3 (4.00-5.60) L 11/18/17 06:49 Hgb 8.4 GM/dL (11.7-16.9) L D 11/18/17 06:49 Hct 25.8 % (35.4-49) L 11/18/17 06:49 MCV 92.2 fl (80-96) 11/18/17 06:49 MCHC 32.4 g/dl (32.0-35.9) 11/18/17 06:49 RDW 22.5 % (11.9-15.9) H 11/18/17 06:49 Plt Count 150 K/MM3 (134-434) 11/18/17 06:49 MPV 9.1 fl (7.5-11.1) 11/18/17 06:49 CMP Sodium 143 mmol/L (136-145) 11/18/17 06:49 Potassium 5.4 mmol/L (3.5-5.1) H 11/18/17 06:49 Chloride 115 mmol/L (98-107) H 11/18/17 06:49 Carbon Dioxide 24 mmol/L (21-32) 11/18/17 06:49 Anion Gap 4 (8-16) L 11/18/17 06:49 BUN 61 mg/dL (7-18) H 11/18/17 06:49 Creatinine 3.6 mg/dL (0.7-1.3) H 11/18/17 06:49 Creat Clearance w eGFR 16.90 (>60) 11/18/17 06:49 Random Glucose 155 mg/dL (74-106) H D 11/18/17 06:49 Calcium 7.2 mg/dL (8.5-10.1) L 11/18/17 06:49 Total Bilirubin 0.3 mg/dL (0.2-1.0) D 11/18/17 06:49 AST 11 U/L (15-37) L D 11/18/17 06:49 ALT 29 U/L (12-78) 11/18/17 06:49 Alkaline Phosphatase 175 U/L (45-117) H 11/18/17 06:49 Total Protein 5.7 g/dl (6.4-8.2) L 11/18/17 06:49 Albumin 2.5 g/dl (3.4-5.0) L 11/18/17 06:49 CARDIAC ENZYMES Creatine Kinase 54 IU/L (39-308) 11/17/17 05:55 Troponin I 0.06 ng/ml (0.00-0.05) H D 11/17/17 05:55 Microbiology 11/16/17 16:00 Blood - Peripheral Venous Blood Culture - Preliminary NO GROWTH OBTAINED AFTER 24 HOURS, INCUBATION TO CONTINUE FOR 4 DAYS. 11/16/17 16:00 Blood - Peripheral Venous Blood Culture - Preliminary NO GROWTH OBTAINED AFTER 24 HOURS, INCUBATION TO CONTINUE FOR 4 DAYS. Assessment: This is a 67 year old male with PMHx of CKD, CHF, a.fib, HTN, CAD s/ p MN, who presented to the ED with generalized weakness and shortness of breath , cough, and facial swelling Plan: 1) Acute on chronic systolic heart failure - ECHO with moderate concentric left ventricular hypertrophy. Moderate to severe global hypokinesis of the left ventricle. LVSF is moderate to severely reduced. Pacemaker in place, RVSF is moderately reduced. Moderate to severe annular calcification. Mod-severe TR, RVSP elevated. Severe pulmonary HTN - Lasix 40mg po daily (Discussed with Dr. Chavis who will review) - Strict I&O - Daily weights - Appre 2) Pleural effusion - Chest X-ray today with sizable right effusion - Continue Lasix - May need thoracentesis. Will need to be off Plavix for 5 days (discussed with Dr. Chavis who will review) - Appreciate pulmonary consult 3) Community acquired pneumonia - Chest x-ray today with right infiltrate - Start Ceftriaxone - Start Azithromycin 4) A.fib - Not on anticoagulation - Rate controlled - Continue Toprol XL 5) Acute on chronic renal failure - Renal ultrasound: both kidneys are echogenic consistent with chronic medical renal disease without evidence of hydronephrosis. Small right mid renal simple cyst measuring 1.9x1cm - BUN/Cr q12h per nephrology - Appreciate nephrology consult 6) Gallbladder wall thickening - Found on kidney ultrasound - F/u gallbladder ultrasound 7) Anemia - F/u iron studies 8) NIDDM - BGM ACHS - ISS ACHS 9) F/E/N: - Diabetic/sodium controlled diet - Hyperkalemia: recheck this afternoon 10) Prophylaxis: - Heparin 5,000u sq tid 11) Dispo: - Requires continued inpatient care CODE STATUS: FULL CODE Visit type - Emergency Visit Emergency Visit: Yes ED Registration Date: 11/16/17 Care time: The patient presented to the Emergency Department on the above date and was hospitalized for further evaluation of their emergent condition. - New Patient This patient is new to me today: Yes Date on this admission: 11/18/17 - Critical Care Critical Care patient: No
--- NOTE | 2017-11-18 15:03 | PN ---
Progress Note (short form) - Note Progress Note: PULMONARY Still with generalized weakness, shortness of breath and nonproductive cough. No chest pain. CXR today showing increasing right sided effusion. Last Vital Signs Temp Pulse Resp BP Pulse Ox 98.7 F 78 18 150/80 97 11/18/17 14:52 11/18/17 14:52 11/18/17 14:52 11/18/17 14:52 11/18/17 09:00 Intake & Output 11/15/17 11/16/17 11/17/17 11/18/17 23:59 23:59 23:59 23:59 Intake Total 640 650 Output Total 700 Balance 640 -50 Weight 150 kg 150 kg 73.482 kg Gen: NAD at rest Heart: RRR Lung: decreased breath sounds right base Abd: soft, nontender Ext: no edema CBC, BMP 11/18/17 06:49 11/18/17 06:49 Active Medications Atorvastatin Calcium (Lipitor -) 40 mg PO HS [facility] Last Admin: 11/17/17 22:25 Dose: 40 mg Clopidogrel Bisulfate (Plavix -) 75 mg PO DAILY [facility] Last Admin: 11/18/17 10:22 Dose: 75 mg Furosemide (Lasix Injection -) 40 mg IVPUSH DAILY [facility] Last Admin: 11/18/17 10:22 Dose: 40 mg Heparin Sodium (Porcine) (Heparin -) 5,000 unit SQ TID [facility] Last Admin: 11/18/17 06:35 Dose: 5,000 unit Insulin Aspart (Novolog Vial Sliding Scale -) 1 vial SQ HS [facility] PRN Reason: Protocol Last Admin: 11/17/17 22:25 Dose: 4 unit Insulin Aspart (Novolog Vial Sliding Scale -) 1 vial SQ TIDAC [facility] PRN Reason: Protocol Last Admin: 11/18/17 12:21 Dose: 2 units Metoprolol Succinate (Toprol Xl -) 50 mg PO DAILY [facility] Last Admin: 11/18/17 10:22 Dose: 50 mg Sodium Bicarbonate (Sodium Bicarbonate -) 650 mg PO BID [facility] Last Admin: 11/18/17 10:22 Dose: 650 mg Tamsulosin HCl (Flomax -) 0.4 mg PO HS [facility] Last Admin: 11/17/17 22:25 Dose: 0.4 mg A/P Acute on Chronic Systolic Heart Failure Right Pleural Effusion likely from above Pulmonary HTN Atrial Fibrillation Acute on Chronic Renal Failure AAA s/p repair HTN DM PAD - consider increasing lasix dosing - monitor urine output, creatinine - O2 to keep Spo2 >90% - rate control - if no improvement with diuresis, can get thoracentesis of right pleural effusion but will have to be off plavix at least 5 days - DVT prophylaxis
[2017-11-18] MEDS ORDERED: AZITHROMYCIN IVPB 500 MG in DEXTROSE 5%-WATER - 250 ML IVPB ONE (16:00)
--- NOTE | 2017-11-18 16:51 | PN ---
Progress Note (short form) - Note Progress Note: cc: sob S: + productive cough persists. + sob. no cp, palps, dizziness. ambulating. Current Medications Atorvastatin Calcium (Lipitor -) 40 mg PO HS [facility] Last Admin: 11/17/17 22:25 Dose: 40 mg Clopidogrel Bisulfate (Plavix -) 75 mg PO DAILY [facility] Last Admin: 11/18/17 10:22 Dose: 75 mg Furosemide (Lasix Injection -) 40 mg IVPUSH DAILY [facility] Last Admin: 11/18/17 10:22 Dose: 40 mg Heparin Sodium (Porcine) (Heparin -) 5,000 unit SQ TID [facility] Last Admin: 11/18/17 14:32 Dose: 5,000 unit Azithromycin 500 mg/ Dextrose 250 mls @ 250 mls/hr IVPB ONCE ONE Stop: 11/18/17 16:59 Azithromycin 250 mg/ Dextrose 250 mls @ 250 mls/hr IVPB DAILY [facility] Ceftriaxone Sodium 1 gm/ (Dextrose) 50 mls @ 200 mls/hr IVPB DAILY [facility] Insulin Aspart (Novolog Vial Sliding Scale -) 1 vial SQ [facility] PRN Reason: Protocol Last Admin: 11/17/17 22:25 Dose: 4 unit Insulin Aspart (Novolog Vial Sliding Scale -) 1 vial SQ TIDAC [facility] PRN Reason: Protocol Last Admin: 11/18/17 12:21 Dose: 2 units Metoprolol Succinate (Toprol Xl -) 50 mg PO DAILY [facility] Last Admin: 11/18/17 10:22 Dose: 50 mg Sodium Bicarbonate (Sodium Bicarbonate -) 650 mg PO BID [facility] Last Admin: 11/18/17 10:22 Dose: 650 mg Tamsulosin HCl (Flomax -) 0.4 mg PO [facility] Last Admin: 11/17/17 22:25 Dose: 0.4 mg pe: Vital Signs - 24 hr 11/17/17 11/17/17 11/18/17 18:00 21:00 02:00 Temperature 98.0 F 98.4 F Pulse Rate 78 79 Respiratory 18 18 Rate Blood Pressure 125/75 145/73 O2 Sat by Pulse 97 Oximetry (%) 11/18/17 11/18/17 11/18/17 07:00 09:00 10:00 Temperature 97.9 F 98.7 F Pulse Rate 76 80 Respiratory 18 18 18 Rate Blood Pressure 140/76 126/56 O2 Sat by Pulse 97 Oximetry (%) 11/18/17 14:52 Temperature 98.7 F Pulse Rate 78 Respiratory 18 Rate Blood Pressure 150/80 O2 Sat by Pulse Oximetry (%) Intake & Output 11/16/17 11/17/17 11/18/17 11/19/17 07:59 07:59 07:59 07:59 Intake Total 640 650 Output Total 350 350 Balance 290 300 Weight 330 lb 11.094 oz 162 lb nad, calm disheveled jvd elevated rrr s1s2 (faint) no mrg bibasilar dullness, nl eff aaox3 trace -1+ Le edema with venous stasis changes. no c/c abd nt nd pos bs diminished dp pt no jaundice diaphoresis CBC, BMP 11/18/17 06:49 11/18/17 06:49 Laboratory Tests 11/16/17 11/16/17 11/16/17 16:00 16:00 16:00 Hgb 9.6 L D INR 0.99 ABG pH ABG pCO2 at Pt Temp ABG pO2 at Pt Temp Lactic Acid Magnesium Total Bilirubin Alkaline Phosphatase Creatine Kinase 68 Troponin I 0.09 H Albumin 2.8 L 11/16/17 11/16/17 11/17/17 16:00 18:50 05:55 Hgb INR ABG pH 7.10 L* D ABG pCO2 at Pt Temp 49.3 H ABG pO2 at Pt Temp 70.5 L D Lactic Acid 1.1 Magnesium Total Bilirubin Alkaline Phosphatase Creatine Kinase 54 Troponin I 0.06 H D Albumin 11/17/17 11/18/17 12:19 06:49 Hgb INR ABG pH 7.25 L D ABG pCO2 at Pt Temp 42.4 ABG pO2 at Pt Temp 77.3 L Lactic Acid Magnesium 2.3 Total Bilirubin 0.3 D Alkaline Phosphatase 175 H Creatine Kinase Troponin I Albumin 2.5 L cxr: chf, right eff ecg vpaced, underlying appears aflutter tele: [employer] echo 11/2014: nl lv/rv, mod-sev mr, sev tr, sev phtn echo 02/2015: mild lv dil, nl lvef, basal post-lat HK, nl rv size/fcn, severe biatrial dil, sev mr, sev tr, sev phtn, mod pr echo 11/2016: low nl lvef, mild lvh, nl rv, mitra, mod mr/tr, mod phtn mibi 11/2016: no ischemia a/p: 67 m hx cad s/p nstemi/pci (11/2014 pt had chf with +trops so sent for cath [facility] and had rota and GIOVANNI to pLAD, residual dLCx and ramus 50-60% both), dchf, htn, hld, dm, ckd, afib on coumadin, cva, ppm (biotronik 05/2012), remote AAA repair, pad s/p left fem stent 2015 and left toe amp here with sob. sob, acute diastolic chf, New systolic cardiomyopathy: - echo here shows new systolic cardiomyopathy. will need to consider stress vs. cath once euvolemic (inpatient vs. outpatietn) pending course of KELLI/CKD. - 11/18: net even thus far today on daily iv lasix. worsened effusion on cxr today. will uptitrate lasix to bid dosing. and start afterload reduction with hydralazine. -no signs acs kelli on ckd: -possible cardiorenal, monitor cr/hyperkalemia with iv lasix -renal consulted cad/pci: -stable, no cp/angina/acs -preserved lvef echo 2016 and no ischemia on 2017 mibi, but with known cad/ residual disease now with new cardiomypathy. ischemic eval as mentioned above. -cont home bb, statin, plavix htn: -cont bb hld: -cont statin afib,aflutter,atach: -rate controlled as pt has complete heart block with ppm -Has hx of cva and was on AC and dapt previously before a prior GIB, and aortoenteric fistula. was followed by vascular at [facility], now by Dr. Ren. DAPT was deemed safe to resume in 2015 after LE stent. Unclear is still on dapt, will confirm with Dr. Thomas on monday. For now, cont plavix monotherapy ppm (biotronik for CHB): -Normal fcn on recent office check, next routine check planned 11/2017 remote aaa repair/pad s/p multiple interventions and toe amputations. : -stable, continue bp control. plavix, statin
[2017-11-18] MEDS: hydrALAZINE HCL 10 MG TABLET PO SCH ×2 (17:12→23:40)
[2017-11-18] MEDS: CEFTRIAXONE 1 GM in DEXTROSE 5%-WATER - 50 ML IVPB SCH (17:59)
[2017-11-18 19:21] LABS: ANION GAP 6 (8-16); BLOOD UREA NITROGEN 67 mg/dL (7-18); CALCIUM 7.2 mg/dL (8.5-10.1); CHLORIDE 115 mmol/L (98-107); CO2 23 mmol/L (21-32); CREATININE 3.9 mg/dL (0.7-1.3); GLUCOSE,RANDOM 115 mg/dL (74-106); POTASSIUM 5.4 mmol/L (3.5-5.1); SODIUM 144 mmol/L (136-145)
--- NOTE | 2017-11-18 23:23 | PN ---
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 67 year old gentleman with PMhx of CKD Stage 3, CHF, AFib, Hypertension weakness, sob, CHF exacerbation with KELLI Current Medications Atorvastatin Calcium (Lipitor -) 40 mg PO HS [facility] Last Admin: 11/17/17 22:25 Dose: 40 mg Clopidogrel Bisulfate (Plavix -) 75 mg PO DAILY [facility] Last Admin: 11/18/17 10:22 Dose: 75 mg Furosemide (Lasix Injection -) 40 mg IVPUSH BID@0600,1400 [facility] Heparin Sodium (Porcine) (Heparin -) 5,000 unit SQ TID [facility] Last Admin: 11/18/17 14:32 Dose: 5,000 unit Hydralazine HCl (Apresoline -) 10 mg PO TID [facility] Last Admin: 11/18/17 17:12 Dose: 10 mg Azithromycin 250 mg/ Dextrose 250 mls @ 250 mls/hr IVPB DAILY [facility] Ceftriaxone Sodium 1 gm/ (Dextrose) 50 mls @ 200 mls/hr IVPB DAILY [facility] Last Admin: 11/18/17 17:59 Dose: 200 mls/hr Insulin Aspart (Novolog Vial Sliding Scale -) 1 vial SQ [facility] PRN Reason: Protocol Last Admin: 11/17/17 22:25 Dose: 4 unit Insulin Aspart (Novolog Vial Sliding Scale -) 1 vial SQ TIDAC [facility] PRN Reason: Protocol Last Admin: 11/18/17 18:00 Dose: Not Given Metoprolol Succinate (Toprol Xl -) 50 mg PO DAILY [facility] Last Admin: 11/18/17 10:22 Dose: 50 mg Sodium Bicarbonate (Sodium Bicarbonate -) 650 mg PO BID [facility] Last Admin: 11/18/17 10:22 Dose: 650 mg Tamsulosin HCl (Flomax -) 0.4 mg PO [facility] Last Admin: 11/17/17 22:25 Dose: 0.4 mg Last Vital Signs Temp Pulse Resp BP Pulse Ox 98.8 F 80 18 158/85 97 11/18/17 17:15 11/18/17 17:15 11/18/17 17:15 11/18/17 17:15 11/18/17 09:00 lungs clear heart reg abd soft nontender ext CBC, BMP 11/18/17 06:49 11/18/17 15:50 IMP -KELLI on CKD: Likely from Cardio-renal syndrome vs. obstruction and less likely GN -SOB secondary to CHF exacerbation -Unilateral Pleural effusion -Mixed Respiratory and Metabolic acidosis -Hypernatremia- resolved -Hyperkalemia tendency Renal Us done- kayley echogenicity c/wchronic renal disease simple cyst in right kidney and non obstructing renal stones Thank you Will follow
[2017-11-18] MEDS: ATORVASTATIN CA 40 MG TABLET (FP) PO SCH (23:40)
[2017-11-18] MEDS: TAMSULOSIN HCL 0.4 MG CAP.ER.24H (FP) PO SCH (23:40)
[2017-11-19] MEDS: INSULIN SLIDING SCALE (NOVOLOG) 1 VIAL SQ SCH ×4 (06:37→23:08)
[2017-11-19] MEDS: hydrALAZINE HCL 10 MG TABLET PO SCH ×3 (06:44→23:01)
[2017-11-19] MEDS: FUROSEMIDE 40 MG/4 ML INJECTABLE VIAL IVPUSH SCH ×2 (06:44→14:01)
[2017-11-19] MEDS: HEPARIN NA (PORCINE) 5,000 UNITS/ML 1ML VIAL SQ SCH ×3 (06:44→23:01)
[2017-11-19 06:58] LABS: BASO % 0.4 % (0-2.0); EOS % 0.3 % (0-4.5); HEMATOCRIT 27.5 % (35.4-49); HEMOGLOBIN 8.6 GM/dL (11.7-16.9); LYMPH % 9.3 % (8-40); MCH 29.5 pg (25.7-33.7); MCHC 31.4 g/dl (32.0-35.9); MEAN CELL VOLUME 93.7 fl (80-96); MONO % 9.5 % (3.8-10.2); NEUT % 80.5 % (42.8-82.8); PLATELET COUNT 152 K/MM3 (134-434); RBC 2.93 M/mm3 (4.00-5.60); RDW 23.3 % (11.9-15.9); WHITE BLOOD COUNT 7.7 K/mm3 (4.0-10.0)
[2017-11-19 07:32] LABS: ALBUMIN 2.6 g/dl (3.4-5.0); ANION GAP 5 (8-16); BLOOD UREA NITROGEN 71 mg/dL (7-18); CALCIUM 7.3 mg/dL (8.5-10.1); CHLORIDE 116 mmol/L (98-107); CO2 23 mmol/L (21-32); GLUCOSE,RANDOM 85 mg/dL (74-106); POTASSIUM 5.3 mmol/L (3.5-5.1); SODIUM 144 mmol/L (136-145)
[2017-11-19 07:36] LABS: ALK PHOS 184 U/L (45-117); BILIRUBIN,TOTAL 0.3 mg/dL (0.2-1.0); CREATININE 3.9 mg/dL (0.7-1.3); SGOT/AST 42 U/L (15-37); SGPT/ALT 59 U/L (12-78); TOT PROT 5.6 g/dl (6.4-8.2)
[2017-11-19] MEDS ORDERED: DEXTROSE 5%-WATER - 50 ML IVPB ONE (08:55)
[2017-11-19] MEDS ORDERED: cefTRIAXone SODIUM 1 GM VIAL ONE (08:55)
--- NOTE | 2017-11-19 09:06 | PN ---
Progress Note, Physician Chief Complaint: no active issues overnight - Current Medication List Current Medications: Active Medications Atorvastatin Calcium (Lipitor -) 40 mg PO [facility] Last Admin: 11/18/17 23:40 Dose: 40 mg Clopidogrel Bisulfate (Plavix -) 75 mg PO DAILY [facility] Last Admin: 11/18/17 10:22 Dose: 75 mg Furosemide (Lasix Injection -) 40 mg IVPUSH BID@0600,1400 [facility] Last Admin: 11/19/17 06:44 Dose: 40 mg Heparin Sodium (Porcine) (Heparin -) 5,000 unit SQ TID [facility] Last Admin: 11/19/17 06:44 Dose: 5,000 unit Hydralazine HCl (Apresoline -) 10 mg PO TID [facility] Last Admin: 11/19/17 06:44 Dose: 10 mg Azithromycin 250 mg/ Dextrose 250 mls @ 250 mls/hr IVPB DAILY [facility] Ceftriaxone Sodium 1 gm/ (Dextrose) 50 mls @ 200 mls/hr IVPB DAILY [facility] Last Admin: 11/18/17 17:59 Dose: 200 mls/hr Insulin Aspart (Novolog Vial Sliding Scale -) 1 vial SQ [facility] PRN Reason: Protocol Last Admin: 11/18/17 23:40 Dose: Not Given Insulin Aspart (Novolog Vial Sliding Scale -) 1 vial SQ TIDAC [facility] PRN Reason: Protocol Last Admin: 11/19/17 06:37 Dose: Not Given Metoprolol Succinate (Toprol Xl -) 50 mg PO DAILY [facility] Last Admin: 11/18/17 10:22 Dose: 50 mg Sodium Bicarbonate (Sodium Bicarbonate -) 650 mg PO BID [facility] Last Admin: 11/18/17 23:40 Dose: 650 mg Tamsulosin HCl (Flomax -) 0.4 mg PO [facility] Last Admin: 11/18/17 23:40 Dose: 0.4 mg - Objective Vital Signs: Vital Signs Temperature 98.2 F 11/19/17 08:29 Pulse Rate 75 11/19/17 08:29 Respiratory Rate 20 11/19/17 08:30 Blood Pressure 140/63 11/19/17 08:29 O2 Sat by Pulse Oximetry (%) 94 L 11/19/17 08:30 Constitutional: Yes: Well Nourished, No Distress, Calm Eyes: Yes: Conjunctiva Clear HENT: Yes: WNL, Atraumatic Neck: Yes: WNL, Supple, Trachea Midline Cardiovascular: Yes: WNL, Regular Rate and Rhythm, S1, S2 Respiratory: Yes: WNL, Regular, CTA Bilaterally Gastrointestinal: Yes: WNL, Normal Bowel Sounds ...Rectal Exam: Yes: Deferred Edema: LLE: Trace, RLE: Trace Labs: CBC, BMP 11/19/17 06:30 11/19/17 06:30 INR, PTT INR 0.99 (0.82-1.09) 11/16/17 16:00 - ....Imaging EKG: Image Reviewed Problem List - Problems (1) Acute CHF Assessment/Plan: -patient presents with acute diastolic CHF exacerbation -s/p furosemide with improvement in symptoms -cardiology consulted and note reviewed -continue IV furosemide -strict I/Os -nephrology following secondary to KELLI on CKD Code(s): I50.9 - HEART FAILURE, UNSPECIFIED Qualifiers: Heart failure type: diastolic Qualified Code(s): I50.31 - Acute diastolic ( congestive) heart failure (2) Acute on chronic renal failure Assessment/Plan: -nephrology following -? cardiorenal syndrome -continue furosemide as per cardiology Code(s): N17.9 - ACUTE KIDNEY FAILURE, UNSPECIFIED; N18.9 - CHRONIC KIDNEY DISEASE, UNSPECIFIED Qualifiers: Acute renal failure type: unspecified Chronic kidney disease stage: unspecified stage Qualified Code(s): N17.9 - Acute kidney failure, unspecified ; N18.9 - Chronic kidney disease, unspecified; N18.9 - Chronic kidney disease, unspecified (3) Hypoxia Assessment/Plan: -secondary to CHF exacerbation Code(s): R09.02 - HYPOXEMIA (4) Atrial fibrillation Assessment/Plan: -sounds in sinus rhythm on exam today -cardiology following -continue clopidogrel patient is not on any anticoagulation Has hx of cva and was on AC previously before a prior GIB, then resumed after GIB but then had Code(s): I48.91 - UNSPECIFIED ATRIAL FIBRILLATION Qualifiers: Atrial fibrillation type: paroxysmal Qualified Code(s): I48.0 - Paroxysmal atrial fibrillation (5) Diabetes Assessment/Plan: -diabetic diet and SSI Code(s): E11.9 - TYPE 2 DIABETES MELLITUS WITHOUT COMPLICATIONS Qualifiers: Diabetes mellitus type: type 2 Diabetes mellitus complication status: with circulatory complication (6) Hypertension Assessment/Plan: -well controlled -continue metoprolol succinate -on IV fruosemide for CHF Code(s): I10 - ESSENTIAL (PRIMARY) HYPERTENSION Qualifiers: Hypertension type: essential hypertension Qualified Code(s): I10 - Essential (primary) hypertension (7) Pacemaker Assessment/Plan: -Normal fcn on recent office check, next routine check planned 11/2017 Code(s): Z95.0 - PRESENCE OF CARDIAC PACEMAKER (8) Pulmonary hypertension Assessment/Plan: -severe on prior echo when pt was in decompensated chf -after diuresis his RHC showed normal PAP so likely phtn related to volume overload/chf Code(s): I27.20 - PULMONARY HYPERTENSION, UNSPECIFIED (9) AAA (abdominal aortic aneurysm) Assessment/Plan: remote aaa repair: -stable, continue bp control. Code(s): I71.4 - ABDOMINAL AORTIC ANEURYSM, WITHOUT RUPTURE
[2017-11-19] MEDS: AZITHROMYCIN IVPB 250 MG in DEXTROSE 5%-WATER - 250 ML IVPB SCH (09:48)
[2017-11-19] MEDS: CEFTRIAXONE 1 GM in DEXTROSE 5%-WATER - 50 ML IVPB SCH (09:49)
[2017-11-19] MEDS: SODIUM BICARBONATE 650 MG TABLET PO SCH ×2 (09:49→23:01)
[2017-11-19] MEDS: CLOPIDOGREL BISULFATE 75 MG TABLET (FP) PO SCH (09:49)
--- NOTE | 2017-11-19 13:15 | PN ---
Progress Note (short form) - Note Progress Note: PULMONARY Still with generalized weakness, shortness of breath and nonproductive cough. No chest pain. No improvement with bronchodilators. Last Vital Signs Temp Pulse Resp BP Pulse Ox 98.2 F 75 20 140/63 94 L 11/19/17 08:29 11/19/17 08:29 11/19/17 08:30 11/19/17 08:29 11/19/17 08:30 Intake & Output 11/16/17 11/17/17 11/18/17 11/19/17 23:59 23:59 23:59 23:59 Intake Total 640 1010 150 Output Total 1200 325 Balance 640 -190 -175 Weight 150 kg 150 kg 73.482 kg 73.085 kg Gen: NAD at rest Heart: RRR Lung: decreased breath sounds right base 2/3 up Abd: soft, nontender Ext: no edema CBC, BMP 11/19/17 06:30 11/19/17 06:30 Active Medications Atorvastatin Calcium (Lipitor -) 40 mg PO HS [facility] Last Admin: 11/18/17 23:40 Dose: 40 mg Clopidogrel Bisulfate (Plavix -) 75 mg PO DAILY [facility] Last Admin: 11/19/17 09:49 Dose: 75 mg Furosemide (Lasix Injection -) 40 mg IVPUSH BID@0600,1400 [facility] Last Admin: 11/19/17 06:44 Dose: 40 mg Heparin Sodium (Porcine) (Heparin -) 5,000 unit SQ TID [facility] Last Admin: 11/19/17 06:44 Dose: 5,000 unit Hydralazine HCl (Apresoline -) 10 mg PO TID [facility] Last Admin: 11/19/17 06:44 Dose: 10 mg Azithromycin 250 mg/ Dextrose 250 mls @ 250 mls/hr IVPB DAILY [facility] Last Admin: 11/19/17 09:48 Dose: 250 mls/hr Ceftriaxone Sodium 1 gm/ (Dextrose) 50 mls @ 200 mls/hr IVPB DAILY [facility] Last Admin: 11/19/17 09:49 Dose: 200 mls/hr Insulin Aspart (Novolog Vial Sliding Scale -) 1 vial SQ HS [facility] PRN Reason: Protocol Last Admin: 11/18/17 23:40 Dose: Not Given Insulin Aspart (Novolog Vial Sliding Scale -) 1 vial SQ TIDAC [facility] PRN Reason: Protocol Last Admin: 11/19/17 12:00 Dose: 2 units Metoprolol Succinate (Toprol Xl -) 50 mg PO DAILY [facility] Last Admin: 11/19/17 09:49 Dose: 50 mg Sodium Bicarbonate (Sodium Bicarbonate -) 650 mg PO BID [facility] Last Admin: 11/19/17 09:49 Dose: 650 mg Tamsulosin HCl (Flomax -) 0.4 mg PO HS [facility] Last Admin: 11/18/17 23:40 Dose: 0.4 mg A/P Acute on Chronic Systolic Heart Failure Right Pleural Effusion likely from above Pulmonary HTN Atrial Fibrillation Acute on Chronic Renal Failure AAA s/p repair HTN DM PAD - continue IV lasix - monitor urine output, creatinine - O2 to keep Spo2 >90% - rate control - if no improvement with diuresis, can get thoracentesis of right pleural effusion but will have to be off plavix at least 5 days - DVT prophylaxis
--- NOTE | 2017-11-19 15:49 | PN ---
Progress Note (short form) - Note Progress Note: cc: sob S: increased lasix to bid dosing yesterday. bmp stable. weight only down 1 pound. started hydralazine 10 mg tid. + productive cough persists. + sob. no cp, palps, dizziness. ambulating. Active Medications Atorvastatin Calcium (Lipitor -) 40 mg PO HS [facility] Last Admin: 11/18/17 23:40 Dose: 40 mg Clopidogrel Bisulfate (Plavix -) 75 mg PO DAILY [facility] Last Admin: 11/19/17 09:49 Dose: 75 mg Furosemide (Lasix Injection -) 40 mg IVPUSH BID@0600,1400 [facility] Last Admin: 11/19/17 06:44 Dose: 40 mg Heparin Sodium (Porcine) (Heparin -) 5,000 unit SQ TID [facility] Last Admin: 11/19/17 06:44 Dose: 5,000 unit Hydralazine HCl (Apresoline -) 10 mg PO TID [facility] Last Admin: 11/19/17 06:44 Dose: 10 mg Azithromycin 250 mg/ Dextrose 250 mls @ 250 mls/hr IVPB DAILY [facility] Last Admin: 11/19/17 09:48 Dose: 250 mls/hr Ceftriaxone Sodium 1 gm/ (Dextrose) 50 mls @ 200 mls/hr IVPB DAILY [facility] Last Admin: 11/19/17 09:49 Dose: 200 mls/hr Insulin Aspart (Novolog Vial Sliding Scale -) 1 vial SQ [facility] PRN Reason: Protocol Last Admin: 11/18/17 23:40 Dose: Not Given Insulin Aspart (Novolog Vial Sliding Scale -) 1 vial SQ TIDAC [facility] PRN Reason: Protocol Last Admin: 11/19/17 12:00 Dose: 2 units Metoprolol Succinate (Toprol Xl -) 50 mg PO DAILY [facility] Last Admin: 11/19/17 09:49 Dose: 50 mg Sodium Bicarbonate (Sodium Bicarbonate -) 650 mg PO BID [facility] Last Admin: 11/19/17 09:49 Dose: 650 mg Tamsulosin HCl (Flomax -) 0.4 mg PO [facility] Last Admin: 11/18/17 23:40 Dose: 0.4 mg pe: Vital Signs - 24 hr 11/19/17 11/19/17 11/19/17 08:29 08:30 14:11 Temperature 98.2 F 98 F Pulse Rate 75 82 Respiratory 20 20 18 Rate Blood Pressure 140/63 137/67 O2 Sat by Pulse 94 L Oximetry (%) Intake & Output 11/17/17 11/18/17 11/19/17 07:59 07:59 07:59 Intake Total 640 1160 Output Total 350 1175 Balance 290 -15 Weight 330 lb 11.094 oz 162 lb 161 lb 2 oz nad, calm disheveled jvd elevated rrr s1s2 (faint) no mrg bibasilar dullness, nl eff aaox3 trace -1+ Le edema with venous stasis changes. no c/c abd nt nd pos bs diminished dp pt no jaundice diaphoresis Laboratory Tests 11/19/17 11/19/17 06:30 06:30 Hgb 8.6 L Sodium 144 Potassium 5.3 H BUN 71 H Creatinine 3.9 H Creat Clearance w eGFR 15.41 Total Bilirubin 0.3 AST 42 H D ALT 59 D Alkaline Phosphatase 184 H Albumin 2.6 L ecg vpaced, underlying appears aflutter tele ;v-paced echo 10/2017: moderate concentric lvh. 1+ lve. mod-sev decreased LV sys fn, global. nl RV size. mod decreased RV sys fn. mod mitra. mod-sev mac. mod mr. mod-sev tr. rvsp > 60. trivial effusion. echo 11/2016: low nl lvef, mild lvh, nl rv, mitra, mod mr/tr, mod phtn echo 02/2015: mild lv dil, nl lvef, basal post-lat HK, nl rv size/fcn, severe biatrial dil, sev mr, sev tr, sev phtn, mod pr echo 11/2014: nl lv/rv, mod-sev mr, sev tr, sev phtn cxr: chf, right eff cxr: increased size of right effusion/right infiltrate. renal u/s: chronic medical renal disease. trace free fluid in upper abdomen. bilateral pleural effusions. see emr for detailed findings. mibi 11/2016: no ischemia a/p: 67 m hx cad s/p nstemi/pci (11/2014 pt had chf with +trops so sent for cath [facility] and had rota and GIOVANNI to pLAD, residual dLCx and ramus 50-60% both), dchf, htn, hld, dm, ckd, afib on coumadin, cva, ppm (biotronik 05/2012), remote AAA repair, pad s/p left fem stent 2016 and left toe amp here with sob. sob, acute diastolic chf, New systolic cardiomyopathy: - echo here shows new systolic cardiomyopathy. will need to consider stress vs. cath once euvolemic (inpatient vs. outpatietn) pending course of KELLI/CKD. - 11/18: net even thus far today on daily iv lasix. worsened effusion on cxr today. will uptitrate lasix to bid dosing. starting afterload reduction with hydralazine 10 tid. - 11/19: further uptitrate lasix to 80 mg bid. extra dose of 80 mg tonight. Uptitrate afterload reduction. -no signs acs kelli on ckd: -possible cardiorenal, monitor cr/hyperkalemia with iv lasix -renal consulted cad/pci: -stable, no cp/angina/acs -preserved lvef echo 2016 and no ischemia on 2017 mibi, but with known cad/ residual disease now with new cardiomypathy. ischemic eval as mentioned above. -cont home bb, statin, plavix htn: -cont bb, hydral hld: -cont statin afib,aflutter,atach: -rate controlled as pt has complete heart block with ppm -Has hx of cva and was on AC and dapt previously before a prior GIB, and aortoenteric fistula. was followed by vascular at [facility], now by Dr. Ren. DAPT was deemed safe to resume in 2015 after LE stent. Unclear if still on dapt, will confirm with Dr. Thomas on monday. For now, cont plavix monotherapy ppm (biotronik for CHB): -Normal fcn on recent office check, next routine check planned 11/2017 remote aaa repair/pad s/p multiple interventions and toe amputations. : -stable, continue bp control. plavix, statin
[2017-11-19 16:11] LABS: SERUM IRON SATURATION 16 % (15-55); TOTAL IRON BINDING CAPACITY 225 ug/dL (250-450); UIBC 188 ug/dL (111-343)
--- NOTE | 2017-11-19 18:02 | PN ---
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 67 year old gentleman with PMhx of CKD Stage 3, CHF, AFib, Hypertension weakness, sob, CHF exacerbation with KELLI Current Medications Atorvastatin Calcium (Lipitor -) 40 mg PO HS [facility] Last Admin: 11/18/17 23:40 Dose: 40 mg Clopidogrel Bisulfate (Plavix -) 75 mg PO DAILY [facility] Last Admin: 11/19/17 09:49 Dose: 75 mg Furosemide (Lasix Injection -) 80 mg IVPUSH BID@0600,1400 [facility] Heparin Sodium (Porcine) (Heparin -) 5,000 unit SQ TID [facility] Last Admin: 11/19/17 14:01 Dose: 5,000 unit Hydralazine HCl (Apresoline -) 20 mg PO TID [facility] Azithromycin 250 mg/ Dextrose 250 mls @ 250 mls/hr IVPB DAILY [facility] Last Admin: 11/19/17 09:48 Dose: 250 mls/hr Ceftriaxone Sodium 1 gm/ (Dextrose) 50 mls @ 200 mls/hr IVPB DAILY [facility] Last Admin: 11/19/17 09:49 Dose: 200 mls/hr Insulin Aspart (Novolog Vial Sliding Scale -) 1 vial SQ [facility] PRN Reason: Protocol Last Admin: 11/18/17 23:40 Dose: Not Given Insulin Aspart (Novolog Vial Sliding Scale -) 1 vial SQ TIDAC [facility] PRN Reason: Protocol Last Admin: 11/19/17 12:00 Dose: 2 units Metoprolol Succinate (Toprol Xl -) 50 mg PO DAILY [facility] Last Admin: 11/19/17 09:49 Dose: 50 mg Sodium Bicarbonate (Sodium Bicarbonate -) 650 mg PO BID [facility] Last Admin: 11/19/17 09:49 Dose: 650 mg Tamsulosin HCl (Flomax -) 0.4 mg PO [facility] Last Admin: 11/18/17 23:40 Dose: 0.4 mg Last Vital Signs Temp Pulse Resp BP Pulse Ox 98 F 82 18 137/67 94 L 11/19/17 14:11 11/19/17 14:11 11/19/17 14:11 11/19/17 14:11 11/19/17 08:30 lungs clear heart reg abd soft nontender ext CBC, BMP 11/19/17 06:30 11/19/17 06:30 CBC, BMP 11/18/17 06:49 11/18/17 15:50 IMP -KELLI on CKD: renal failure seems to have plateaued Heart Failure- still symptomatic, + orthopneic -Unilateral Pleural effusion -Hyperkalemia tendency Renal Us done- kayley echogenicity c/wchronic renal disease simple cyst in right kidney and non obstructing renal stones Plan monitor renal function
[2017-11-19] MEDS: ATORVASTATIN CA 40 MG TABLET (FP) PO SCH (23:00)
[2017-11-19] MEDS: TAMSULOSIN HCL 0.4 MG CAP.ER.24H (FP) PO SCH (23:01)
[2017-11-20] MEDS: hydrALAZINE HCL 10 MG TABLET PO SCH ×3 (05:42→21:44)
[2017-11-20] MEDS: FUROSEMIDE 40 MG/4 ML INJECTABLE VIAL IVPUSH SCH ×2 (05:48→14:36)
[2017-11-20] MEDS: HEPARIN NA (PORCINE) 5,000 UNITS/ML 1ML VIAL SQ SCH ×3 (05:48→21:44)
[2017-11-20] MEDS: INSULIN SLIDING SCALE (NOVOLOG) 1 VIAL SQ SCH ×4 (06:00→21:45)
[2017-11-20 06:08] LABS: BASO % 0.3 % (0-2.0); EOS % 0.7 % (0-4.5); HEMATOCRIT 26.7 % (35.4-49); HEMOGLOBIN 8.7 GM/dL (11.7-16.9); LYMPH % 8.5 % (8-40); MCH 30.2 pg (25.7-33.7); MCHC 32.8 g/dl (32.0-35.9); MEAN CELL VOLUME 92.1 fl (80-96); MEAN PLT VOLUME 9.4 fl (7.5-11.1); MONO % 10.6 % (3.8-10.2); NEUT % 79.9 % (42.8-82.8); PLATELET COUNT 155 K/MM3 (134-434); RDW 23.1 % (11.9-15.9); WHITE BLOOD COUNT 6.9 K/mm3 (4.0-10.0)
[2017-11-20 06:38] LABS: CHLORIDE 115 mmol/L (98-107); POTASSIUM 4.8 mmol/L (3.5-5.1); SODIUM 144 mmol/L (136-145)
[2017-11-20 06:59] LABS: ALBUMIN 2.5 g/dl (3.4-5.0); ALK PHOS 190 U/L (45-117); ANION GAP 7 (8-16); BILIRUBIN,TOTAL 0.2 mg/dL (0.2-1.0); BLOOD UREA NITROGEN 76 mg/dL (7-18); CALCIUM 7.3 mg/dL (8.5-10.1); CO2 22 mmol/L (21-32); CREATININE 3.8 mg/dL (0.7-1.3); GLUCOSE,RANDOM 163 mg/dL (74-106); MAGNESIUM 2.5 mg/dL (1.8-2.4); SGOT/AST 47 U/L (15-37); SGPT/ALT 72 U/L (12-78); TOT PROT 5.6 g/dl (6.4-8.2)
[2017-11-20] MEDS ORDERED: cefTRIAXone SODIUM 1 GM VIAL ONE (08:20)
[2017-11-20] MEDS ORDERED: DEXTROSE 5%-WATER - 50 ML IVPB ONE (08:20)
[2017-11-20] MEDS: AZITHROMYCIN IVPB 250 MG in DEXTROSE 5%-WATER - 250 ML IVPB SCH (10:00)
[2017-11-20] MEDS: CEFTRIAXONE 1 GM in DEXTROSE 5%-WATER - 50 ML IVPB SCH (10:00)
[2017-11-20] MEDS: SODIUM BICARBONATE 650 MG TABLET PO SCH ×2 (10:01→21:44)
[2017-11-20] MEDS: CLOPIDOGREL BISULFATE 75 MG TABLET (FP) PO SCH (10:01)
--- NOTE | 2017-11-20 10:09 | PN ---
Progress Note (short form) - Note Progress Note: cc: sob S: + productive cough persists. + sob. no cp, palps, dizziness. ambulating. Current Medications Generic Name Dose Route Start Last Admin Trade Name Connie PRN Reason Stop Dose Admin Atorvastatin Calcium 40 mg 11/17/17 22:00 11/19/17 23:00 Lipitor - PO 40 mg HS [facility] Administration Clopidogrel Bisulfate 75 mg 11/17/17 10:00 11/20/17 10:01 Plavix - PO 75 mg DAILY [facility] Administration Furosemide 80 mg 11/20/17 06:00 11/20/17 05:48 Lasix Injection - IVPUSH 80 mg BID@0600,1400 [facility] Administration Heparin Sodium (Porcine) 5,000 unit 11/16/17 06:00 11/20/17 05:48 Heparin - SQ 5,000 unit TID [facility] Administration Hydralazine HCl 20 mg 11/19/17 22:00 11/20/17 05:42 Apresoline - PO Not Given TID [facility] Azithromycin 250 mg/ Dextrose 250 mls @ 250 mls/hr 11/19/17 10:00 11/20/17 10 :00 IVPB 250 mls/hr DAILY [facility] Administration Ceftriaxone Sodium 1 gm/ 50 mls @ 200 mls/hr 11/18/17 15:15 11/20/17 10:00 Dextrose IVPB 200 mls/hr DAILY [facility] Administration Insulin Aspart 1 vial 11/16/17 22:00 11/19/17 23:08 Novolog Vial Sliding Scale - SQ 2 unit HS [facility] Administration Protocol Insulin Aspart 1 vial 11/17/17 07:00 11/20/17 06:00 Novolog Vial Sliding Scale - SQ Not Given TIDAC [facility] Protocol Metoprolol Succinate 50 mg 11/17/17 10:00 11/20/17 10:01 Toprol Xl - PO 50 mg DAILY [facility] Administration Sodium Bicarbonate 650 mg 11/17/17 22:00 11/20/17 10:01 Sodium Bicarbonate - PO 650 mg BID [facility] Administration Tamsulosin HCl 0.4 mg 11/16/17 22:00 11/19/17 23:01 Flomax - PO 0.4 mg HS [facility] Administration pe: Vital Signs Period Temp Pulse Resp BP Sys/Lauren Pulse Ox Last 24 Hr 98 F-98.8 F 69-82 18-20 134-154/57-75 95-95 nad, calm disheveled jvd elevated rrr s1s2 (faint) no mrg bibasilar dullness, nl eff aaox3 trace -1+ Le edema with venous stasis changes. no c/c abd nt nd pos bs diminished dp pt no jaundice diaphoresis CBC, BMP 11/20/17 05:51 11/20/17 05:51 ecg vpaced, underlying appears aflutter tele ;v-paced echo 10/2017: moderate concentric lvh. 1+ lve. mod-sev decreased LV sys fn, global. nl RV size. mod decreased RV sys fn. mod mitra. mod-sev mac. mod mr. mod-sev tr. rvsp > 60. trivial effusion. echo 11/2016: low nl lvef, mild lvh, nl rv, mitra, mod mr/tr, mod phtn echo 02/2015: mild lv dil, nl lvef, basal post-lat HK, nl rv size/fcn, severe biatrial dil, sev mr, sev tr, sev phtn, mod pr echo 11/2014: nl lv/rv, mod-sev mr, sev tr, sev phtn cxr: chf, right eff cxr: increased size of right effusion/right infiltrate. renal u/s: chronic medical renal disease. trace free fluid in upper abdomen. bilateral pleural effusions. see emr for detailed findings. mibi 11/2016: no ischemia a/p: 67 m hx cad s/p nstemi/pci (11/2014 pt had chf with +trops so sent for cath [facility] and had rota and GIOVANNI to pLAD, residual dLCx and ramus 50-60% both), dchf, htn, hld, dm, ckd, afib on coumadin, cva, ppm (biotronik 05/2012), remote AAA repair, pad s/p left fem stent 2015 and left toe amp here with sob. sob, acute diastolic chf, New systolic cardiomyopathy: - echo here shows new systolic cardiomyopathy. will need to consider stress vs. cath once euvolemic (inpatient vs. outpatietn) pending course of KELLI/CKD. - 11/18: net even thus far today on daily iv lasix. worsened effusion on cxr today. will uptitrate lasix to bid dosing. starting afterload reduction with hydralazine 10 tid. - 11/19: further uptitrate lasix to 80 mg bid. extra dose of 80 mg tonight. Uptitrate afterload reduction. -11/20: cont current iv lasix -no signs acs kelli on ckd: -possible cardiorenal, monitor cr/hyperkalemia with iv lasix -renal following cad/pci: -stable, no cp/angina/acs -preserved lvef echo 2017 and no ischemia on 2017 mibi, but with known cad/ residual disease now with new cardiomypathy. ischemic eval as mentioned above. -cont home bb, statin, plavix htn: -cont bb, hydral hld: -cont statin afib,aflutter,atach: -rate controlled as pt has complete heart block with ppm -Has hx of cva and was on AC and dapt previously before a prior GIB, and aortoenteric fistula. was followed by vascular at [facility], now by Dr. Ren. DAPT was deemed safe to resume in 2015 after LE stent. Unclear if still on dapt, will confirm with Dr. Thomas on monday. For now, cont plavix monotherapy ppm (biotronik for CHB): -Normal fcn on recent office check, next routine check planned 11/2017 remote aaa repair/pad s/p multiple interventions and toe amputations. : -stable, continue bp control. plavix, statin
--- NOTE | 2017-11-20 11:26 | PN ---
Progress Note, Physician History of Present Illness: PULMONARY ALERT, SLOWLY IMROVING, BU STILL C/O SOB,+ COUGH - Current Medication List Current Medications: Active Medications Atorvastatin Calcium (Lipitor -) 40 mg PO [facility] Last Admin: 11/19/17 23:00 Dose: 40 mg Clopidogrel Bisulfate (Plavix -) 75 mg PO DAILY [facility] Last Admin: 11/20/17 10:01 Dose: 75 mg Furosemide (Lasix Injection -) 80 mg IVPUSH BID@0600,1400 [facility] Last Admin: 11/20/17 05:48 Dose: 80 mg Heparin Sodium (Porcine) (Heparin -) 5,000 unit SQ TID [facility] Last Admin: 11/20/17 05:48 Dose: 5,000 unit Hydralazine HCl (Apresoline -) 20 mg PO TID [facility] Last Admin: 11/20/17 05:42 Dose: Not Given Azithromycin 250 mg/ Dextrose 250 mls @ 250 mls/hr IVPB DAILY [facility] Last Admin: 11/20/17 10:00 Dose: 250 mls/hr Ceftriaxone Sodium 1 gm/ (Dextrose) 50 mls @ 200 mls/hr IVPB DAILY [facility] Last Admin: 11/20/17 10:00 Dose: 200 mls/hr Insulin Aspart (Novolog Vial Sliding Scale -) 1 vial SQ [facility] PRN Reason: Protocol Last Admin: 11/19/17 23:08 Dose: 2 unit Insulin Aspart (Novolog Vial Sliding Scale -) 1 vial SQ TIDAC [facility] PRN Reason: Protocol Last Admin: 11/20/17 06:00 Dose: Not Given Metoprolol Succinate (Toprol Xl -) 50 mg PO DAILY [facility] Last Admin: 11/20/17 10:01 Dose: 50 mg Sodium Bicarbonate (Sodium Bicarbonate -) 650 mg PO BID [facility] Last Admin: 11/20/17 10:01 Dose: 650 mg Tamsulosin HCl (Flomax -) 0.4 mg PO [facility] Last Admin: 11/19/17 23:01 Dose: 0.4 mg - Objective Vital Signs: Vital Signs Temperature 98.5 F 11/20/17 08:03 Pulse Rate 69 11/20/17 08:03 Respiratory Rate 20 11/20/17 08:03 Blood Pressure 152/72 11/20/17 08:03 O2 Sat by Pulse Oximetry (%) 95 11/20/17 08:03 Constitutional: Yes: Well Nourished, Calm Eyes: Yes: WNL HENT: Yes: WNL Neck: Yes: WNL Cardiovascular: Yes: Pulse Irregular, S1, S2 Respiratory: Yes: Diminished (DIMINISHED BS ON R), Rales Gastrointestinal: Yes: Normal Bowel Sounds, Soft Extremities: Yes: WNL Edema: No Labs: CBC, BMP 11/20/17 05:51 11/20/17 05:51 INR, PTT INR 0.99 (0.82-1.09) 11/16/17 16:00 Problem List - Problems (1) Acute CHF Code(s): I50.9 - HEART FAILURE, UNSPECIFIED Qualifiers: Heart failure type: diastolic Qualified Code(s): I50.31 - Acute diastolic ( congestive) heart failure (2) Acute on chronic renal failure Code(s): N17.9 - ACUTE KIDNEY FAILURE, UNSPECIFIED; N18.9 - CHRONIC KIDNEY DISEASE, UNSPECIFIED Qualifiers: Acute renal failure type: unspecified Chronic kidney disease stage: unspecified stage Qualified Code(s): N17.9 - Acute kidney failure, unspecified ; N18.9 - Chronic kidney disease, unspecified; N18.9 - Chronic kidney disease, unspecified (3) Hypoxia Code(s): R09.02 - HYPOXEMIA (4) Atrial fibrillation Code(s): I48.91 - UNSPECIFIED ATRIAL FIBRILLATION Qualifiers: Atrial fibrillation type: paroxysmal Qualified Code(s): I48.0 - Paroxysmal atrial fibrillation (5) Congestive heart failure Code(s): I50.9 - HEART FAILURE, UNSPECIFIED Qualifiers: Qualified Code(s): I50.22 - Chronic systolic (congestive) heart failure (6) Coronary artery disease Code(s): I25.10 - ATHSCL HEART DISEASE OF THREE AFFILIATED CORONARY ARTERY W/O ANG PCTRS Qualifiers: Coronary Disease-Associated Artery/Lesion type: [place] coronary artery [place] vs. transplanted heart: [place] heart Associated angina: without angina pectoris (7) Diabetes Code(s): E11.9 - TYPE 2 DIABETES MELLITUS WITHOUT COMPLICATIONS Qualifiers: Diabetes mellitus type: type 2 Diabetes mellitus complication status: with circulatory complication (8) NSTEMI (non-ST elevated myocardial infarction) Code(s): I21.4 - NON-ST ELEVATION (NSTEMI) MYOCARDIAL INFARCTION (9) Peripheral vascular disease Code(s): I73.9 - PERIPHERAL VASCULAR DISEASE, UNSPECIFIED Assessment/Plan IMP DYSPNEA SECONDARY TO DECOMPENSATED CHF ASHD S/P STENT DIASTOLIC HF R PLEURAL EFFUSION PULMONARY HTN AFIB S/P PPM PULMONARY HTN DM ACUTE ON CHRONIC KIDNEY DISEASE AAA S/P REPAIR PVD HTN PLAN IV LASIX O2 DAILY [facility] F/U CHEST X-RAY TODAY [facility]VIX DR SO Problem List - Problems (1) Acute CHF Code(s): I50.9 - HEART FAILURE, UNSPECIFIED Qualifiers: Heart failure type: unspecified Qualified Code(s): I50.9 - Heart failure, unspecified (2) Acute on chronic renal failure Code(s): N17.9 - ACUTE KIDNEY FAILURE, UNSPECIFIED; N18.9 - CHRONIC KIDNEY DISEASE, UNSPECIFIED Qualifiers: Acute renal failure type: unspecified Chronic kidney disease stage: unspecified stage Qualified Code(s): N17.9 - Acute kidney failure, unspecified ; N18.9 - Chronic kidney disease, unspecified; N18.9 - Chronic kidney disease, unspecified (3) Hypoxia Code(s): R09.02 - HYPOXEMIA (4) Atrial fibrillation Code(s): I48.91 - UNSPECIFIED ATRIAL FIBRILLATION Qualifiers: Atrial fibrillation type: paroxysmal Qualified Code(s): I48.0 - Paroxysmal atrial fibrillation (5) Congestive heart failure Code(s): I50.9 - HEART FAILURE, UNSPECIFIED Qualifiers: Qualified Code(s): I50.22 - Chronic systolic (congestive) heart failure (6) Coronary artery disease Code(s): I25.10 - ATHSCL HEART DISEASE OF [place] CORONARY ARTERY W/O ANG PCTRS Qualifiers: Coronary Disease-Associated Artery/Lesion type: [place] coronary artery [place] vs. transplanted heart: [place] heart Associated angina: without angina pectoris (7) Diabetes Code(s): E11.9 - TYPE 2 DIABETES MELLITUS WITHOUT COMPLICATIONS Qualifiers: Diabetes mellitus type: type 2 Diabetes mellitus complication status: with circulatory complication (8) NSTEMI (non-ST elevated myocardial infarction) Code(s): I21.4 - NON-ST ELEVATION (NSTEMI) MYOCARDIAL INFARCTION (9) Peripheral vascular disease Code(s): I73.9 - PERIPHERAL VASCULAR DISEASE, UNSPECIFIED
--- NOTE | 2017-11-20 12:43 | PN ---
Progress Note, Physician Chief Complaint: Mr Howard says his breathing is better. No cp or n/v. Still with general weakness and malaise. - Current Medication List Current Medications: Active Medications Atorvastatin Calcium (Lipitor -) 40 mg PO HS [facility] Last Admin: 11/19/17 23:00 Dose: 40 mg Clopidogrel Bisulfate (Plavix -) 75 mg PO DAILY [facility] Last Admin: 11/20/17 10:01 Dose: 75 mg Furosemide (Lasix Injection -) 80 mg IVPUSH BID@0600,1400 [facility] Last Admin: 11/20/17 05:48 Dose: 80 mg Heparin Sodium (Porcine) (Heparin -) 5,000 unit SQ TID [facility] Last Admin: 11/20/17 05:48 Dose: 5,000 unit Hydralazine HCl (Apresoline -) 20 mg PO TID [facility] Last Admin: 11/20/17 05:42 Dose: Not Given Azithromycin 250 mg/ Dextrose 250 mls @ 250 mls/hr IVPB DAILY [facility] Last Admin: 11/20/17 10:00 Dose: 250 mls/hr Ceftriaxone Sodium 1 gm/ (Dextrose) 50 mls @ 200 mls/hr IVPB DAILY [facility] Last Admin: 11/20/17 10:00 Dose: 200 mls/hr Insulin Aspart (Novolog Vial Sliding Scale -) 1 vial SQ [facility] PRN Reason: Protocol Last Admin: 11/19/17 23:08 Dose: 2 unit Insulin Aspart (Novolog Vial Sliding Scale -) 1 vial SQ TIDAC [facility] PRN Reason: Protocol Last Admin: 11/20/17 11:48 Dose: 4 units Metoprolol Succinate (Toprol Xl -) 50 mg PO DAILY [facility] Last Admin: 11/20/17 10:01 Dose: 50 mg Sodium Bicarbonate (Sodium Bicarbonate -) 650 mg PO BID [facility] Last Admin: 11/20/17 10:01 Dose: 650 mg Tamsulosin HCl (Flomax -) 0.4 mg PO [facility] Last Admin: 11/19/17 23:01 Dose: 0.4 mg - Objective Vital Signs: Vital Signs Temperature 36.9 C 11/20/17 08:03 Pulse Rate 69 11/20/17 08:03 Respiratory Rate 20 11/20/17 08:03 Blood Pressure 152/72 11/20/17 08:03 O2 Sat by Pulse Oximetry (%) 95 11/20/17 08:03 Constitutional: Yes: Well Nourished, No Distress, Calm Cardiovascular: Yes: Regular Rate and Rhythm. No: Gallop, Murmur, Rub Respiratory: Yes: Regular, Rhonchi (R base), Other (decreased breath sounds bilaterally). No: CTA Bilaterally, On Nasal O2, Rales, Wheezes Gastrointestinal: Yes: Normal Bowel Sounds, Soft. No: Distention, Tenderness Extremities: Yes: Erythema (chronic) Edema: Yes Edema: LLE: 1+, RLE: 1+ Labs: CBC, BMP 11/20/17 05:51 11/20/17 05:51 INR, PTT INR 0.99 (0.82-1.09) 11/16/17 16:00 Problem List - Problems (1) Acute CHF Code(s): I50.9 - HEART FAILURE, UNSPECIFIED Qualifiers: Heart failure type: diastolic Qualified Code(s): I50.31 - Acute diastolic ( congestive) heart failure (2) Acute on chronic renal failure Code(s): N17.9 - ACUTE KIDNEY FAILURE, UNSPECIFIED; N18.9 - CHRONIC KIDNEY DISEASE, UNSPECIFIED Qualifiers: Acute renal failure type: unspecified Chronic kidney disease stage: unspecified stage Qualified Code(s): N17.9 - Acute kidney failure, unspecified ; N18.9 - Chronic kidney disease, unspecified; N18.9 - Chronic kidney disease, unspecified (3) Hypoxia Code(s): R09.02 - HYPOXEMIA (4) Atrial fibrillation Code(s): I48.91 - UNSPECIFIED ATRIAL FIBRILLATION Qualifiers: Atrial fibrillation type: paroxysmal Qualified Code(s): I48.0 - Paroxysmal atrial fibrillation (5) Diabetes Code(s): E11.9 - TYPE 2 DIABETES MELLITUS WITHOUT COMPLICATIONS Qualifiers: Diabetes mellitus type: type 2 Diabetes mellitus complication status: with circulatory complication (6) Hypertension Code(s): I10 - ESSENTIAL (PRIMARY) HYPERTENSION Qualifiers: Hypertension type: essential hypertension Qualified Code(s): I10 - Essential (primary) hypertension Assessment/Plan (1) Acute CHF Assessment/Plan: -patient presents with acute diastolic CHF exacerbation -appreciate cardiology assistance -continue IV lasix Code(s): I50.9 - HEART FAILURE, UNSPECIFIED Qualifiers: Heart failure type: diastolic Qualified Code(s): I50.31 - Acute diastolic ( congestive) heart failure (2) Acute on chronic renal failure Assessment/Plan: -nephrology following and case discussed -continue lasix -stable, as an outpatient creatinine was 3.2 Code(s): N17.9 - ACUTE KIDNEY FAILURE, UNSPECIFIED; N18.9 - CHRONIC KIDNEY DISEASE, UNSPECIFIED Qualifiers: Acute renal failure type: unspecified Chronic kidney disease stage: unspecified stage Qualified Code(s): N17.9 - Acute kidney failure, unspecified ; N18.9 - Chronic kidney disease, unspecified; N18.9 - Chronic kidney disease, unspecified (3) Hypoxia Assessment/Plan: -secondary to CHF exacebation -appreciate pulmonary assistance -continue diuresis Code(s): R09.02 - HYPOXEMIA (4) Atrial fibrillation Assessment/Plan: -sounds in sinus rhythm on exam today -cardiology following -continue plavix, not on AC Code(s): I48.91 - UNSPECIFIED ATRIAL FIBRILLATION Qualifiers: Atrial fibrillation type: paroxysmal Qualified Code(s): I48.0 - Paroxysmal atrial fibrillation (5) Diabetes Assessment/Plan: -diabetic diet and SSI Code(s): E11.9 - TYPE 2 DIABETES MELLITUS WITHOUT COMPLICATIONS Qualifiers: Diabetes mellitus type: type 2 Diabetes mellitus complication status: with circulatory complication (6) Hypertension Assessment/Plan: -well controlled -continue toprol xl -on IV lasix for CHF Code(s): I10 - ESSENTIAL (PRIMARY) HYPERTENSION Qualifiers: Hypertension type: essential hypertension Qualified Code(s): I10 - Essential (primary) hypertension (7) UTI -patient on empiric rocephin and zithromax for suspected pneumonia -however urine cultures positive -since MDR, will consult ID for further antibiotics
[2017-11-20 12:49] LABS: ADD RBC MORPHOLOGY YES
[2017-11-20 12:50] LABS: ACANTHOCYTES 2+; ANISOCYTOSIS 2+
[2017-11-20 12:51] LABS: MACROCYTOSIS FEW; OVALOCYTE FEW
--- NOTE | 2017-11-20 15:35 | CON.ID ---
Consult Consult Specialty:: infectious diseases Reason for Consultation:: uti - History of Present Illness Chief Complaint: weakness,sob History of Present Illness: 67 year old male with a significant past medical history of CKD, CHF, Afib, HTN , CT admitted to the hospital with weakness and sob Patient stated that he had dry cough and facial swelling. patient was admitted and worked up and was being managed. on work up the patient had uti resistant to multiple drugs was called to manage the uti currently patient on ceftriaxone feels a little better,still very weak - History Source History Provided By: Patient, Medical Record Limitations to Obtaining History: Poor Historian - Past Medical History Cardio/Vascular: Yes: AFIB, CAD, HTN Gastrointestinal: Yes: Other (Left inguinal hernia. Small bowel obstruction) Renal/: Yes: Renal Inusuff (chronic) Endocrine: Yes: Diabetes Mellitus - Past Surgical History Past Surgical History: Yes: AAA Repair, Appendectomy, Colectomy (partial with lysis of adhesions), Permanent Pacemaker - Alcohol/Substance Use Hx Alcohol Use: No History of Substance Use: reports: None - Smoking History Smoking history: Current every day smoker Have you smoked in the past 12 months: Yes Aproximately how many cigarettes per day: 10 If you are a former smoker, when did you quit?: 2MONTHS AGO - Social History Usual Living Arrangement: With Spouse ADL: Independent Occupation: Works in a [employer] History of Recent Travel: No Home Medications - Allergies Allergies/Adverse Reactions: Allergies Allergy/AdvReac Type Severity Reaction Status Date / Time No Known Drug Allergies Allergy Verified 10/23/17 07:24 - Home Medications Home Medications: Ambulatory Orders Atorvastatin Ca [Lipitor] 40 mg PO DAILY 02/27/16 Furosemide [Lasix -] 40 mg PO DAILY 02/27/16 Glyburide 10 mg PO BID 02/27/16 Linagliptin [Tradjenta] 5 mg PO DAILY 02/27/16 Tamsulosin HCl 0.4 mg PO HS 02/27/16 Clopidogrel Bisulfate [Plavix -] 75 mg PO DAILY #30 tablet 03/24/16 Metoprolol Succinate [Toprol XL -] 50 mg PO DAILY #30 tab.sr.24h 03/25/16 Review of Systems - Review of Systems Constitutional: reports: Weakness Eyes: reports: No Symptoms HENT: reports: No Symptoms Neck: reports: No Symptoms Cardiovascular: reports: No Symptoms Respiratory: reports: Cough, SOB Genitourinary: reports: No Symptoms Musculoskeletal: reports: No Symptoms Integumentary: reports: No Symptoms Neurological: reports: No Symptoms Endocrine: reports: No Symptoms Hematology/Lymphatic: reports: No Symptoms Psychiatric: reports: No Symptoms Physical Exam Vital Signs: Vital Signs Temperature 97.3 F L 11/20/17 14:00 Pulse Rate 73 11/20/17 14:00 Respiratory Rate 20 11/20/17 14:00 Blood Pressure 126/58 11/20/17 14:00 O2 Sat by Pulse Oximetry (%) 95 11/20/17 08:03 Constitutional: Yes: Thin, Other (failure to thrive) Cardiovascular: Yes: Regular Rate and Rhythm Respiratory: Yes: Regular, On Nasal O2, Poor Air Entry, Rhonchi Gastrointestinal: Yes: Normal Bowel Sounds, Soft Musculoskeletal: Yes: WNL Extremities: Yes: WNL Neurological: Yes: Alert, Oriented Psychiatric: Yes: Alert, Oriented Labs: CBC, BMP 11/20/17 05:51 11/20/17 05:51 Assessment/Plan Problem List - Problems (1) Acute CHF Code(s): I50.9 - HEART FAILURE, UNSPECIFIED Qualifiers: Heart failure type: diastolic Qualified Code(s): I50.31 - Acute diastolic ( congestive) heart failure (2) Acute on chronic renal failure Code(s): N17.9 - ACUTE KIDNEY FAILURE, UNSPECIFIED; N18.9 - CHRONIC KIDNEY DISEASE, UNSPECIFIED Qualifiers: Acute renal failure type: unspecified Chronic kidney disease stage: unspecified stage Qualified Code(s): N17.9 - Acute kidney failure, unspecified ; N18.9 - Chronic kidney disease, unspecified; N18.9 - Chronic kidney disease, unspecified (3) Hypoxia Code(s): R09.02 - HYPOXEMIA (4) Atrial fibrillation Code(s): I48.91 - UNSPECIFIED ATRIAL FIBRILLATION Qualifiers: Atrial fibrillation type: paroxysmal Qualified Code(s): I48.0 - Paroxysmal atrial fibrillation (5) Diabetes Code(s): E11.9 - TYPE 2 DIABETES MELLITUS WITHOUT COMPLICATIONS Qualifiers: Diabetes mellitus type: type 2 Diabetes mellitus complication status: with circulatory complication (6) Hypertension Code(s): I10 - ESSENTIAL (PRIMARY) HYPERTENSION Qualifiers: Hypertension type: essential hypertension Qualified Code(s): I10 - Essential (primary) hypertension (7) UTI complicated plan will stop ceftriaxone will switch to zosyn stop zithro after 5 days incentive [facility]
--- NOTE | 2017-11-20 17:55 | PN ---
Progress Note (short form) - Note Progress Note: Renal follow up for KELLI on CKD Pt seen and examined at the bedside reports some improvement in sob, but still not at baseline no CP, ABd pain, N/V/D Vital Signs Temperature 97.3 F L 11/20/17 14:00 Pulse Rate 73 11/20/17 14:00 Respiratory Rate 20 11/20/17 14:00 Blood Pressure 126/58 11/20/17 14:00 O2 Sat by Pulse Oximetry (%) 95 11/20/17 08:03 Intake & Output 11/17/17 11/18/17 11/19/17 11/20/17 23:59 23:59 23:59 23:59 Intake Total 640 1010 710 370 Output Total 1200 725 400 Balance 640 -190 -15 -30 Weight 150 kg 73.482 kg 73.085 kg 73.028 kg NAD, awake and alert MMM, No JVD, neck supple RRR, No M/R Decreased BS right lung bases, no rales/wheeze soft NT/ND, no bladder distension Trace to 1+ LE edema, no cyanosis, clubbing or erythema no focal neurological defects CBC, BMP 11/20/17 05:51 11/20/17 05:51 Current Medications Atorvastatin Calcium (Lipitor -) 40 mg PO HS [facility] Last Admin: 11/19/17 23:00 Dose: 40 mg Clopidogrel Bisulfate (Plavix -) 75 mg PO DAILY [facility] Last Admin: 11/20/17 10:01 Dose: 75 mg Furosemide (Lasix Injection -) 80 mg IVPUSH BID@0600,1400 [facility] Last Admin: 11/20/17 14:36 Dose: 80 mg Heparin Sodium (Porcine) (Heparin -) 5,000 unit SQ TID [facility] Last Admin: 11/20/17 14:35 Dose: 5,000 unit Hydralazine HCl (Apresoline -) 20 mg PO TID [facility] Last Admin: 11/20/17 14:35 Dose: 20 mg Azithromycin 250 mg/ Dextrose 250 mls @ 250 mls/hr IVPB DAILY [facility] Last Admin: 11/20/17 10:00 Dose: 250 mls/hr Piperacillin Sod/Tazobactam (Sod 2.25 gm/ Dextrose) 50 mls @ 100 mls/hr IVPB Q8H-IV [facility] PRN Reason: Protocol Insulin Aspart (Novolog Vial Sliding Scale -) 1 vial SQ HS [facility] PRN Reason: Protocol Last Admin: 11/19/17 23:08 Dose: 2 unit Insulin Aspart (Novolog Vial Sliding Scale -) 1 vial SQ TIDAC [facility] PRN Reason: Protocol Last Admin: 11/20/17 17:20 Dose: 6 units Metoprolol Succinate (Toprol Xl -) 50 mg PO DAILY [facility] Last Admin: 11/20/17 10:01 Dose: 50 mg Sodium Bicarbonate (Sodium Bicarbonate -) 650 mg PO BID [facility] Last Admin: 11/20/17 10:01 Dose: 650 mg Tamsulosin HCl (Flomax -) 0.4 mg PO HS [facility] Last Admin: 11/19/17 23:01 Dose: 0.4 mg 67 year old gentleman with PMhx of CKD Stage 3, CHF, AFib, Hypertension who presented with weakness and sob and found to have CHF exacerbation with KELLI #KELLI on CKD vs. progressive CKD #Nephrotic Proteinuira #SOB secondary to CHF exacerbation #Unilateral Pleural effusion #Mixed Respiratory and Metabolic acidosis #Hypernatremia #Hyperkalemia BUN/Cr worsening as inpatient in setting of diuretics Renal function has been progressively worsening since last summer (cr 2-2.6-3.2) CHeck SHAKIR, HIV, Hepatitis, RPR b/c of proteinuria likely etiology is that pt has progressive diabetic nephropathy check renal vein doppler if BUN/Cr continues to rise on IV BID lasix, consider decrease dose Trend BUN/cR and daily weights Beau Iraheta DO
[2017-11-20] MEDS: PIPERACILLIN/TAZOB 2.25 GM 2.25 GM in DEXTROSE 5%-WATER - 50 ML IVPB SCH (18:19)
[2017-11-20] MEDS: ATORVASTATIN CA 40 MG TABLET (FP) PO SCH (21:44)
[2017-11-20] MEDS: TAMSULOSIN HCL 0.4 MG CAP.ER.24H (FP) PO SCH (21:44)
[2017-11-21] MEDS: PIPERACILLIN/TAZOB 2.25 GM 2.25 GM in DEXTROSE 5%-WATER - 50 ML IVPB SCH ×3 (02:01→17:25)
[2017-11-21] MEDS: HEPARIN NA (PORCINE) 5,000 UNITS/ML 1ML VIAL SQ SCH ×3 (06:26→21:21)
[2017-11-21] MEDS: hydrALAZINE HCL 10 MG TABLET PO SCH ×3 (06:26→21:20)
[2017-11-21] MEDS: FUROSEMIDE 40 MG/4 ML INJECTABLE VIAL IVPUSH SCH (06:26)
[2017-11-21] MEDS: INSULIN SLIDING SCALE (NOVOLOG) 1 VIAL SQ SCH ×4 (06:27→21:24)
[2017-11-21 06:50] LABS: BASO % 0.4 % (0-2.0); EOS % 1.2 % (0-4.5); HEMATOCRIT 27.8 % (35.4-49); HEMOGLOBIN 9.1 GM/dL (11.7-16.9); LYMPH % 9.1 % (8-40); MCH 30.1 pg (25.7-33.7); MCHC 32.8 g/dl (32.0-35.9); MEAN CELL VOLUME 91.6 fl (80-96); MEAN PLT VOLUME 9.7 fl (7.5-11.1); MONO % 9.5 % (3.8-10.2); NEUT % 79.8 % (42.8-82.8); PLATELET COUNT 150 K/MM3 (134-434); RBC 3.04 M/mm3 (4.00-5.60); RDW 22.5 % (11.9-15.9); WHITE BLOOD COUNT 6.3 K/mm3 (4.0-10.0)
[2017-11-21 07:32] LABS: CHLORIDE 111 mmol/L (98-107); POTASSIUM 4.2 mmol/L (3.5-5.1); SODIUM 144 mmol/L (136-145)
[2017-11-21 07:43] LABS: ANION GAP 11 (8-16); BLOOD UREA NITROGEN 81 mg/dL (7-18); CALCIUM 7.1 mg/dL (8.5-10.1); CO2 22 mmol/L (21-32); CREATININE 4.1 mg/dL (0.7-1.3); GLUCOSE,RANDOM 170 mg/dL (74-106); MAGNESIUM 2.2 mg/dL (1.8-2.4); PHOSPHOROUS 5.1 mg/dL (2.5-4.9)
[2017-11-21] MEDS: AZITHROMYCIN IVPB 250 MG in DEXTROSE 5%-WATER - 250 ML IVPB SCH (09:35)
[2017-11-21] MEDS: CLOPIDOGREL BISULFATE 75 MG TABLET (FP) PO SCH (09:37)
[2017-11-21] MEDS: SODIUM BICARBONATE 650 MG TABLET PO SCH ×2 (09:37→21:21)
--- NOTE | 2017-11-21 11:43 | PN ---
Progress Note, Physician History of Present Illness: PULMONARY ALERT,FEELING BETTER,LESS DYSPNEIC - Current Medication List Current Medications: Active Medications Atorvastatin Calcium (Lipitor -) 40 mg PO [facility] Last Admin: 11/20/17 21:44 Dose: 40 mg Clopidogrel Bisulfate (Plavix -) 75 mg PO DAILY [facility] Last Admin: 11/21/17 09:37 Dose: 75 mg Heparin Sodium (Porcine) (Heparin -) 5,000 unit SQ TID [facility] Last Admin: 11/21/17 06:26 Dose: 5,000 unit Hydralazine HCl (Apresoline -) 20 mg PO TID [facility] Last Admin: 11/21/17 06:26 Dose: 20 mg Azithromycin 250 mg/ Dextrose 250 mls @ 250 mls/hr IVPB DAILY [facility] Last Admin: 11/21/17 09:35 Dose: 250 mls/hr Piperacillin Sod/Tazobactam (Sod 2.25 gm/ Dextrose) 50 mls @ 100 mls/hr IVPB Q8H-IV [facility] PRN Reason: Protocol Last Admin: 11/21/17 09:35 Dose: 100 mls/hr Insulin Aspart (Novolog Vial Sliding Scale -) 1 vial SQ [facility] PRN Reason: Protocol Last Admin: 11/20/17 21:45 Dose: 2 unit Insulin Aspart (Novolog Vial Sliding Scale -) 1 vial SQ TIDAC [facility] PRN Reason: Protocol Last Admin: 11/21/17 06:27 Dose: 2 units Metoprolol Succinate (Toprol Xl -) 50 mg PO DAILY [facility] Last Admin: 11/21/17 09:37 Dose: 50 mg Sodium Bicarbonate (Sodium Bicarbonate -) 650 mg PO BID [facility] Last Admin: 11/21/17 09:37 Dose: 650 mg Tamsulosin HCl (Flomax -) 0.4 mg PO [facility] Last Admin: 11/20/17 21:44 Dose: 0.4 mg - Objective Vital Signs: Vital Signs Temperature 98 F 11/21/17 07:12 Pulse Rate 67 11/21/17 07:12 Respiratory Rate 20 11/21/17 07:14 Blood Pressure 149/68 11/21/17 07:12 O2 Sat by Pulse Oximetry (%) 95 11/21/17 07:14 Constitutional: Yes: Well Nourished, Calm Eyes: Yes: WNL HENT: Yes: WNL Neck: Yes: WNL Cardiovascular: Yes: Pulse Irregular, S1, S2 Respiratory: Yes: Rales (CAL RALES1/3 UP) Gastrointestinal: Yes: Normal Bowel Sounds, Soft Extremities: Yes: WNL Edema: No Labs: CBC, BMP 11/21/17 06:25 11/21/17 06:25 INR, PTT INR 0.99 (0.82-1.09) 11/16/17 16:00 Problem List - Problems (1) Acute CHF Code(s): I50.9 - HEART FAILURE, UNSPECIFIED Qualifiers: Heart failure type: diastolic Qualified Code(s): I50.31 - Acute diastolic ( congestive) heart failure (2) Acute on chronic renal failure Code(s): N17.9 - ACUTE KIDNEY FAILURE, UNSPECIFIED; N18.9 - CHRONIC KIDNEY DISEASE, UNSPECIFIED Qualifiers: Acute renal failure type: unspecified Chronic kidney disease stage: unspecified stage Qualified Code(s): N17.9 - Acute kidney failure, unspecified ; N18.9 - Chronic kidney disease, unspecified; N18.9 - Chronic kidney disease, unspecified (3) Hypoxia Code(s): R09.02 - HYPOXEMIA (4) Atrial fibrillation Code(s): I48.91 - UNSPECIFIED ATRIAL FIBRILLATION Qualifiers: Atrial fibrillation type: paroxysmal Qualified Code(s): I48.0 - Paroxysmal atrial fibrillation (5) Congestive heart failure Code(s): I50.9 - HEART FAILURE, UNSPECIFIED Qualifiers: Qualified Code(s): I50.22 - Chronic systolic (congestive) heart failure (6) Coronary artery disease Code(s): I25.10 - ATHSCL HEART DISEASE OF [place] CORONARY ARTERY W/O ANG PCTRS Qualifiers: Coronary Disease-Associated Artery/Lesion type: [place] coronary artery [place] vs. transplanted heart: [place] heart Associated angina: without angina pectoris (7) Diabetes Code(s): E11.9 - TYPE 2 DIABETES MELLITUS WITHOUT COMPLICATIONS Qualifiers: Diabetes mellitus type: type 2 Diabetes mellitus complication status: with circulatory complication (8) NSTEMI (non-ST elevated myocardial infarction) Code(s): I21.4 - NON-ST ELEVATION (NSTEMI) MYOCARDIAL INFARCTION (9) Peripheral vascular disease Code(s): I73.9 - PERIPHERAL VASCULAR DISEASE, UNSPECIFIED Assessment/Plan IMP DYSPNEA SECONDARY TO DECOMPENSATED CHF IMPROVING ASHD S/P STENT DIASTOLIC HF R PLEURAL EFFUSION PULMONARY HTN AFIB S/P PPM PULMONARY HTN DM ACUTE ON CHRONIC KIDNEY DISEASE AAA S/P REPAIR PVD HTN PLAN IV LASIX O2 DAILY WTS [facility] [address] SO Problem List - Problems (1) Acute CHF Code(s): I50.9 - HEART FAILURE, UNSPECIFIED Qualifiers: Heart failure type: unspecified Qualified Code(s): I50.9 - Heart failure, unspecified (2) Acute on chronic renal failure Code(s): N17.9 - ACUTE KIDNEY FAILURE, UNSPECIFIED; N18.9 - CHRONIC KIDNEY DISEASE, UNSPECIFIED Qualifiers: Acute renal failure type: unspecified Chronic kidney disease stage: unspecified stage Qualified Code(s): N17.9 - Acute kidney failure, unspecified ; N18.9 - Chronic kidney disease, unspecified; N18.9 - Chronic kidney disease, unspecified (3) Hypoxia Code(s): R09.02 - HYPOXEMIA (4) Atrial fibrillation Code(s): I48.91 - UNSPECIFIED ATRIAL FIBRILLATION Qualifiers: Atrial fibrillation type: paroxysmal Qualified Code(s): I48.0 - Paroxysmal atrial fibrillation (5) Congestive heart failure Code(s): I50.9 - HEART FAILURE, UNSPECIFIED Qualifiers: Qualified Code(s): I50.22 - Chronic systolic (congestive) heart failure (6) Coronary artery disease Code(s): I25.10 - ATHSCL HEART DISEASE OF [place] CORONARY ARTERY W/O ANG PCTRS Qualifiers: Coronary Disease-Associated Artery/Lesion type: [place] coronary artery [place] vs. transplanted heart: [place] heart Associated angina: without angina pectoris (7) Diabetes Code(s): E11.9 - TYPE 2 DIABETES MELLITUS WITHOUT COMPLICATIONS Qualifiers: Diabetes mellitus type: type 2 Diabetes mellitus complication status: with circulatory complication (8) NSTEMI (non-ST elevated myocardial infarction) Code(s): I21.4 - NON-ST ELEVATION (NSTEMI) MYOCARDIAL INFARCTION (9) Peripheral vascular disease Code(s): I73.9 - PERIPHERAL VASCULAR DISEASE, UNSPECIFIED
--- NOTE | 2017-11-21 12:04 | PN ---
Progress Note (short form) - Note Progress Note: cc: sob S: + productive cough persists. + sob. no cp, palps, dizziness. ambulating. renal function worse today on increased lasix dose. Current Medications Atorvastatin Calcium (Lipitor -) 40 mg PO HS [facility] Last Admin: 11/20/17 21:44 Dose: 40 mg Clopidogrel Bisulfate (Plavix -) 75 mg PO DAILY [facility] Last Admin: 11/21/17 09:37 Dose: 75 mg Heparin Sodium (Porcine) (Heparin -) 5,000 unit SQ TID [facility] Last Admin: 11/21/17 06:26 Dose: 5,000 unit Hydralazine HCl (Apresoline -) 20 mg PO TID [facility] Last Admin: 11/21/17 06:26 Dose: 20 mg Azithromycin 250 mg/ Dextrose 250 mls @ 250 mls/hr IVPB DAILY [facility] Last Admin: 11/21/17 09:35 Dose: 250 mls/hr Piperacillin Sod/Tazobactam (Sod 2.25 gm/ Dextrose) 50 mls @ 100 mls/hr IVPB Q8H-IV [facility] PRN Reason: Protocol Last Admin: 11/21/17 09:35 Dose: 100 mls/hr Insulin Aspart (Novolog Vial Sliding Scale -) 1 vial SQ HS [facility] PRN Reason: Protocol Last Admin: 11/20/17 21:45 Dose: 2 unit Insulin Aspart (Novolog Vial Sliding Scale -) 1 vial SQ TIDAC [facility] PRN Reason: Protocol Last Admin: 11/21/17 11:58 Dose: 8 units Metoprolol Succinate (Toprol Xl -) 50 mg PO DAILY [facility] Last Admin: 11/21/17 09:37 Dose: 50 mg Sodium Bicarbonate (Sodium Bicarbonate -) 650 mg PO BID [facility] Last Admin: 11/21/17 09:37 Dose: 650 mg Tamsulosin HCl (Flomax -) 0.4 mg PO HS [facility] Last Admin: 11/20/17 21:44 Dose: 0.4 mg pe: Vital Signs - 24 hr 11/20/17 11/20/17 11/20/17 14:00 18:30 21:00 Temperature 97.3 F L 97.6 F Pulse Rate 73 70 Respiratory 20 20 Rate Blood Pressure 126/58 155/77 O2 Sat by Pulse 95 Oximetry (%) 11/20/17 11/21/17 11/21/17 22:00 02:25 06:00 Temperature 97.4 F L 97.4 F L 98 F Pulse Rate 69 70 70 Respiratory 20 20 20 Rate Blood Pressure 161/78 157/74 151/68 O2 Sat by Pulse Oximetry (%) 11/21/17 11/21/17 07:12 07:14 Temperature 98 F Pulse Rate 67 Respiratory 20 20 Rate Blood Pressure 149/68 O2 Sat by Pulse 95 Oximetry (%) Intake & Output 11/19/17 11/20/17 11/21/17 11/22/17 07:59 07:59 07:59 07:59 Intake Total 1160 560 830 Output Total 1175 800 500 Balance -15 -240 330 Weight 161 lb 2 oz 161 lb 156 lb 6 oz nad, calm disheveled jvd elevated rrr s1s2 (faint) no mrg bibasilar rales, nl eff aaox3 trace Le edema with venous stasis changes. L>R no c/c abd nt nd pos bs diminished dp pt no jaundice diaphoresis CBC, BMP 11/21/17 06:25 11/21/17 06:25 Microbiology 11/18/17 11:05 Urine - Urine Clean Catch Urine Culture - Final Serratia Marces[facility] Laboratory Tests 11/21/17 06:25 Magnesium 2.2 ecg vpaced, underlying appears aflutter tele ;v-paced echo 10/2017: moderate concentric lvh. 1+ lve. mod-sev decreased LV sys fn, global. nl RV size. mod decreased RV sys fn. mod mitra. mod-sev mac. mod mr. mod-sev tr. rvsp > 60. trivial effusion. echo 11/2016: low nl lvef, mild lvh, nl rv, mitra, mod mr/tr, mod phtn echo 02/2015: mild lv dil, nl lvef, basal post-lat HK, nl rv size/fcn, severe biatrial dil, sev mr, sev tr, sev phtn, mod pr echo 11/2014: nl lv/rv, mod-sev mr, sev tr, sev phtn cxr: chf, right eff cxr: increased size of right effusion/right infiltrate. renal u/s: chronic medical renal disease. trace free fluid in upper abdomen. bilateral pleural effusions. see emr for detailed findings. mibi 11/2016: no ischemia a/p: 67 m hx cad s/p nstemi/pci (11/2014 pt had chf with +trops so sent for cath MSH and had rota and GIOVANNI to pLAD, residual dLCx and ramus 50-60% both), dchf, htn, hld, dm, ckd, afib on coumadin, cva, ppm (biotronik 05/2012), remote AAA repair, pad s/p left fem stent 2016 and left toe amp here with sob. sob, acute diastolic chf, New systolic cardiomyopathy: - echo here shows new systolic cardiomyopathy. will need to consider stress vs. cath once euvolemic (inpatient vs. outpatietn) pending course of KELLI/CKD. - 11/18: net even thus far today on daily iv lasix. worsened effusion on cxr today. will uptitrate lasix to bid dosing. starting afterload reduction with hydralazine 10 tid. - 11/19: further uptitrate lasix to 80 mg bid. extra dose of 80 mg tonight. Uptitrate afterload reduction. -11/20: cont current iv lasix - 11/21: renal function worse. per renal hold lasix. consider resuming at 80 mg IV daily tomorrow if creatinine stable and at discretion of renal. -no signs acs kelli on ckd: -possible cardiorenal, monitor cr/hyperkalemia with iv lasix -renal following cad/pci: -stable, no cp/angina/acs -preserved lvef echo 2017 and no ischemia on 2017 mibi, but with known cad/ residual disease now with new cardiomypathy. ischemic eval as mentioned above. -cont home bb, statin, plavix htn: -cont bb, hydral hld: -cont statin afib,aflutter,atach: -rate controlled as pt has complete heart block with ppm -Has hx of cva and was on AC and dapt previously before a prior GIB, and aortoenteric fistula. was followed by vascular at [facility], now by Dr. Ren. DAPT was deemed safe to resume in 2015 after LE stent. Unclear if still on dapt, discussed with Dr. Thomas. For now, cont plavix monotherapy ppm (biotronik for CHB): -Normal fcn on recent office check, next routine check planned 11/2017 remote aaa repair/pad s/p multiple interventions and toe amputations. : -stable, continue bp control. plavix, statin
--- NOTE | 2017-11-21 14:07 | PN ---
Progress Note, Physician Chief Complaint: Mr Howard says he is feeling better today. SOB improved, no cp or n/v. - Current Medication List Current Medications: Active Medications Atorvastatin Calcium (Lipitor -) 40 mg PO HS [facility] Last Admin: 11/20/17 21:44 Dose: 40 mg Clopidogrel Bisulfate (Plavix -) 75 mg PO DAILY [facility] Last Admin: 11/21/17 09:37 Dose: 75 mg Heparin Sodium (Porcine) (Heparin -) 5,000 unit SQ TID [facility] Last Admin: 11/21/17 13:38 Dose: 5,000 unit Hydralazine HCl (Apresoline -) 20 mg PO TID [facility] Last Admin: 11/21/17 13:38 Dose: 20 mg Azithromycin 250 mg/ Dextrose 250 mls @ 250 mls/hr IVPB DAILY [facility] Last Admin: 11/21/17 09:35 Dose: 250 mls/hr Piperacillin Sod/Tazobactam (Sod 2.25 gm/ Dextrose) 50 mls @ 100 mls/hr IVPB Q8H-IV [facility] PRN Reason: Protocol Last Admin: 11/21/17 09:35 Dose: 100 mls/hr Insulin Aspart (Novolog Vial Sliding Scale -) 1 vial SQ HS [facility] PRN Reason: Protocol Last Admin: 11/20/17 21:45 Dose: 2 unit Insulin Aspart (Novolog Vial Sliding Scale -) 1 vial SQ TIDAC [facility] PRN Reason: Protocol Last Admin: 11/21/17 11:58 Dose: 8 units Metoprolol Succinate (Toprol Xl -) 50 mg PO DAILY [facility] Last Admin: 11/21/17 09:37 Dose: 50 mg Sodium Bicarbonate (Sodium Bicarbonate -) 650 mg PO BID [facility] Last Admin: 11/21/17 09:37 Dose: 650 mg Tamsulosin HCl (Flomax -) 0.4 mg PO [facility] Last Admin: 11/20/17 21:44 Dose: 0.4 mg - Objective Vital Signs: Vital Signs Temperature 36.6 C 11/21/17 07:12 Pulse Rate 67 11/21/17 07:12 Respiratory Rate 20 11/21/17 07:14 Blood Pressure 149/68 11/21/17 07:12 O2 Sat by Pulse Oximetry (%) 95 11/21/17 07:14 Constitutional: Yes: Well Nourished, No Distress, Calm Cardiovascular: Yes: Regular Rate and Rhythm. No: Gallop, Murmur, Rub Respiratory: Yes: Regular, CTA Bilaterally. No: Rales, Rhonchi, Wheezes Gastrointestinal: Yes: Normal Bowel Sounds, Soft. No: Distention, Tenderness Extremities: Yes: WNL Edema: No Labs: CBC, BMP 11/21/17 06:25 11/21/17 06:25 INR, PTT INR 0.99 (0.82-1.09) 11/16/17 16:00 Problem List - Problems (1) Acute CHF Code(s): I50.9 - HEART FAILURE, UNSPECIFIED Qualifiers: Heart failure type: diastolic Qualified Code(s): I50.31 - Acute diastolic ( congestive) heart failure (2) Acute on chronic renal failure Code(s): N17.9 - ACUTE KIDNEY FAILURE, UNSPECIFIED; N18.9 - CHRONIC KIDNEY DISEASE, UNSPECIFIED Qualifiers: Acute renal failure type: unspecified Chronic kidney disease stage: unspecified stage Qualified Code(s): N17.9 - Acute kidney failure, unspecified ; N18.9 - Chronic kidney disease, unspecified; N18.9 - Chronic kidney disease, unspecified (3) Hypoxia Code(s): R09.02 - HYPOXEMIA (4) Atrial fibrillation Code(s): I48.91 - UNSPECIFIED ATRIAL FIBRILLATION Qualifiers: Atrial fibrillation type: paroxysmal Qualified Code(s): I48.0 - Paroxysmal atrial fibrillation (5) Diabetes Code(s): E11.9 - TYPE 2 DIABETES [place]LL[place] WITHOUT COMPLICATIONS Qualifiers: Diabetes mellitus type: type 2 Diabetes mellitus complication status: with circulatory complication (6) Hypertension Code(s): I10 - ESSENTIAL (PRIMARY) HYPERTENSION Qualifiers: Hypertension type: essential hypertension Qualified Code(s): I10 - Essential (primary) hypertension Assessment/Plan (1) Acute CHF Assessment/Plan: -cardiology note reviewed -decrease lasix to 80mg IV daily -monitor for improvement Code(s): I50.9 - HEART FAILURE, UNSPECIFIED Qualifiers: Heart failure type: diastolic Qualified Code(s): I50.31 - Acute diastolic ( congestive) heart failure (2) Acute on chronic renal failure Assessment/Plan: -nephrology following and case discussed -continue lasix as above -monitor for stabilization -no need for HD at this time Code(s): N17.9 - ACUTE KIDNEY FAILURE, UNSPECIFIED; N18.9 - CHRONIC KIDNEY DISEASE, UNSPECIFIED Qualifiers: Acute renal failure type: unspecified Chronic kidney disease stage: unspecified stage Qualified Code(s): N17.9 - Acute kidney failure, unspecified ; N18.9 - Chronic kidney disease, unspecified; N18.9 - Chronic kidney disease, unspecified (3) Hypoxia Assessment/Plan: -secondary to CHF exacebation -appreciate pulmonary assistance -continue diuresis -much improved Code(s): R09.02 - HYPOXEMIA (4) Atrial fibrillation Assessment/Plan: -sounds in sinus rhythm on exam today -cardiology following -continue plavix, not on AC Code(s): I48.91 - UNSPECIFIED ATRIAL FIBRILLATION Qualifiers: Atrial fibrillation type: paroxysmal Qualified Code(s): I48.0 - Paroxysmal atrial fibrillation (5) Diabetes Assessment/Plan: -diabetic diet and SSI Code(s): E11.9 - TYPE 2 DIABETES MELLITUS WITHOUT COMPLICATIONS Qualifiers: Diabetes mellitus type: type 2 Diabetes mellitus complication status: with circulatory complication (6) Hypertension Assessment/Plan: -well controlled -continue toprol xl -on IV lasix for CHF Code(s): I10 - ESSENTIAL (PRIMARY) HYPERTENSION Qualifiers: Hypertension type: essential hypertension Qualified Code(s): I10 - Essential (primary) hypertension (7) UTI -appreciate ID assistance -on zosyn
--- NOTE | 2017-11-21 14:14 | PN ---
Progress Note, Physician History of Present Illness: doing well feeling better breathing better - Current Medication List Current Medications: Active Medications Atorvastatin Calcium (Lipitor -) 40 mg PO [facility] Last Admin: 11/20/17 21:44 Dose: 40 mg Clopidogrel Bisulfate (Plavix -) 75 mg PO DAILY [facility] Last Admin: 11/21/17 09:37 Dose: 75 mg Heparin Sodium (Porcine) (Heparin -) 5,000 unit SQ TID [facility] Last Admin: 11/21/17 13:38 Dose: 5,000 unit Hydralazine HCl (Apresoline -) 20 mg PO TID [facility] Last Admin: 11/21/17 13:38 Dose: 20 mg Azithromycin 250 mg/ Dextrose 250 mls @ 250 mls/hr IVPB DAILY [facility] Last Admin: 11/21/17 09:35 Dose: 250 mls/hr Piperacillin Sod/Tazobactam (Sod 2.25 gm/ Dextrose) 50 mls @ 100 mls/hr IVPB Q8H-IV [facility] PRN Reason: Protocol Last Admin: 11/21/17 09:35 Dose: 100 mls/hr Insulin Aspart (Novolog Vial Sliding Scale -) 1 vial SQ [facility] PRN Reason: Protocol Last Admin: 11/20/17 21:45 Dose: 2 unit Insulin Aspart (Novolog Vial Sliding Scale -) 1 vial SQ TIDAC [facility] PRN Reason: Protocol Last Admin: 11/21/17 11:58 Dose: 8 units Metoprolol Succinate (Toprol Xl -) 50 mg PO DAILY [facility] Last Admin: 11/21/17 09:37 Dose: 50 mg Sodium Bicarbonate (Sodium Bicarbonate -) 650 mg PO BID [facility] Last Admin: 11/21/17 09:37 Dose: 650 mg Tamsulosin HCl (Flomax -) 0.4 mg PO [facility] Last Admin: 11/20/17 21:44 Dose: 0.4 mg - Objective Vital Signs: Vital Signs Temperature 98 F 11/21/17 07:12 Pulse Rate 67 11/21/17 07:12 Respiratory Rate 20 11/21/17 07:14 Blood Pressure 149/68 11/21/17 07:12 O2 Sat by Pulse Oximetry (%) 95 11/21/17 07:14 Constitutional: Yes: No Distress, Calm Cardiovascular: Yes: Regular Rate and Rhythm Respiratory: Yes: Regular, On Nasal O2, Rhonchi Gastrointestinal: Yes: Normal Bowel Sounds, Soft Musculoskeletal: Yes: WNL Extremities: Yes: WNL Neurological: Yes: Alert, Oriented Psychiatric: Yes: Alert, Oriented Labs: CBC, BMP 11/21/17 06:25 11/21/17 06:25 INR, PTT INR 0.99 (0.82-1.09) 11/16/17 16:00 Assessment/Plan Problem List - Problems (1) Acute CHF Code(s): I50.9 - HEART FAILURE, UNSPECIFIED Qualifiers: Heart failure type: diastolic Qualified Code(s): I50.31 - Acute diastolic ( congestive) heart failure (2) Acute on chronic renal failure Code(s): N17.9 - ACUTE KIDNEY FAILURE, UNSPECIFIED; N18.9 - CHRONIC KIDNEY DISEASE, UNSPECIFIED Qualifiers: Acute renal failure type: unspecified Chronic kidney disease stage: unspecified stage Qualified Code(s): N17.9 - Acute kidney failure, unspecified ; N18.9 - Chronic kidney disease, unspecified; N18.9 - Chronic kidney disease, unspecified (3) Hypoxia Code(s): R09.02 - HYPOXEMIA (4) Atrial fibrillation Code(s): I48.91 - UNSPECIFIED ATRIAL FIBRILLATION Qualifiers: Atrial fibrillation type: paroxysmal Qualified Code(s): I48.0 - Paroxysmal atrial fibrillation (5) Diabetes Code(s): E11.9 - TYPE 2 DIABETES MELL[place] WITHOUT COMPLICATIONS Qualifiers: Diabetes mellitus type: type 2 Diabetes mellitus complication status: with circulatory complication (6) Hypertension Code(s): I10 - ESSENTIAL (PRIMARY) HYPERTENSION Qualifiers: Hypertension type: essential hypertension Qualified Code(s): I10 - Essential (primary) hypertension (7) UTI complicated plan continue current mgmt stop zithro after 5 days incentive [facility]
--- NOTE | 2017-11-21 14:17 | PN ---
Progress Note (short form) - Note Progress Note: Renal follow up for KELLI on CKD Pt seen and examined at the bedside awake and alert reports feeling a little better making urine no chest pain, N/V/D Vital Signs Temperature 98 F 11/21/17 07:12 Pulse Rate 67 11/21/17 07:12 Respiratory Rate 20 11/21/17 07:14 Blood Pressure 149/68 11/21/17 07:12 O2 Sat by Pulse Oximetry (%) 95 11/21/17 07:14 Intake & Output 11/18/17 11/19/17 11/20/17 11/21/17 23:59 23:59 23:59 23:59 Intake Total 1010 710 780 50 Output Total 1200 725 400 500 Balance -190 -15 380 -450 Weight 73.482 kg 73.085 kg 73.028 kg 70.931 kg NAD, awake and alert MMM, No JVD, neck supple RRR, No M/R Decreased BS right lung bases, no rales/wheeze soft NT/ND, no bladder distension Trace to 1+ LE edema, no cyanosis, clubbing or erythema CBC, BMP 11/21/17 06:25 11/21/17 06:25 Current Medications Atorvastatin Calcium (Lipitor -) 40 mg PO HS [facility] Last Admin: 11/20/17 21:44 Dose: 40 mg Clopidogrel Bisulfate (Plavix -) 75 mg PO DAILY [facility] Last Admin: 11/21/17 09:37 Dose: 75 mg Heparin Sodium (Porcine) (Heparin -) 5,000 unit SQ TID [facility] Last Admin: 11/21/17 13:38 Dose: 5,000 unit Hydralazine HCl (Apresoline -) 20 mg PO TID [facility] Last Admin: 11/21/17 13:38 Dose: 20 mg Azithromycin 250 mg/ Dextrose 250 mls @ 250 mls/hr IVPB DAILY [facility] Last Admin: 11/21/17 09:35 Dose: 250 mls/hr Piperacillin Sod/Tazobactam (Sod 2.25 gm/ Dextrose) 50 mls @ 100 mls/hr IVPB Q8H-IV [facility] PRN Reason: Protocol Last Admin: 11/21/17 09:35 Dose: 100 mls/hr Insulin Aspart (Novolog Vial Sliding Scale -) 1 vial SQ HS [facility] PRN Reason: Protocol Last Admin: 11/20/17 21:45 Dose: 2 unit Insulin Aspart (Novolog Vial Sliding Scale -) 1 vial SQ TIDAC [facility] PRN Reason: Protocol Last Admin: 11/21/17 11:58 Dose: 8 units Metoprolol Succinate (Toprol Xl -) 50 mg PO DAILY [facility] Last Admin: 11/21/17 09:37 Dose: 50 mg Sodium Bicarbonate (Sodium Bicarbonate -) 650 mg PO BID [facility] Last Admin: 11/21/17 09:37 Dose: 650 mg Tamsulosin HCl (Flomax -) 0.4 mg PO HS [facility] Last Admin: 11/20/17 21:44 Dose: 0.4 mg 67 year old gentleman with PMhx of CKD Stage 3, CHF, AFib, Hypertension who presented with weakness and sob and found to have CHF exacerbation with KELLI #KELLI on CKD vs. progressive CKD #Nephrotic Proteinuira #SOB secondary to CHF exacerbation #Unilateral Pleural effusion #Mixed Respiratory and Metabolic acidosis #Hypernatremia #Hyperkalemia Renal function worsening this admission in setting of aggressive IV diuresis agree with decreasing Lasix dose, will d/c for now and re-evaluate based on clinical status and labs in AM work up for secondary causes of nephrotic syndrome pending Renal vein doppler performed, read is pending Continue sodium bicarb no acute indication for dialysis at this time if renal function stabilizes and pts functional status is improved he can complete renal work up as outpatient Beau Iraheta DO
[2017-11-21] MEDS ORDERED: PT OWN MED DRAWER 7, Y5N ONE (17:24)
[2017-11-21] MEDS: ATORVASTATIN CA 40 MG TABLET (FP) PO SCH (21:19)
[2017-11-21] MEDS: TAMSULOSIN HCL 0.4 MG CAP.ER.24H (FP) PO SCH (21:20)
[2017-11-22] MEDS: PIPERACILLIN/TAZOB 2.25 GM 2.25 GM in DEXTROSE 5%-WATER - 50 ML IVPB SCH ×3 (01:30→17:51)
[2017-11-22] MEDS: HEPARIN NA (PORCINE) 5,000 UNITS/ML 1ML VIAL SQ SCH ×3 (05:52→23:34)
[2017-11-22] MEDS: hydrALAZINE HCL 10 MG TABLET PO SCH ×3 (05:52→23:34)
[2017-11-22 06:07] LABS: HEP.C VIRUS AB 0.1 s/co ratio (0.0-0.9); SERUM IRON SATURATION 13 % (15-55); TOTAL IRON BINDING CAPACITY 223 ug/dL (250-450); UIBC 194 ug/dL (111-343)
[2017-11-22] MEDS: INSULIN SLIDING SCALE (NOVOLOG) 1 VIAL SQ SCH ×4 (06:07→23:34)
[2017-11-22 07:34] LABS: BASO % 0.7 % (0-2.0); EOS % 1.8 % (0-4.5); HEMATOCRIT 26.9 % (35.4-49); HEMOGLOBIN 8.7 GM/dL (11.7-16.9); LYMPH % 11.8 % (8-40); MCH 29.5 pg (25.7-33.7); MCHC 32.5 g/dl (32.0-35.9); MEAN CELL VOLUME 90.8 fl (80-96); MEAN PLT VOLUME 9.5 fl (7.5-11.1); MONO % 9.6 % (3.8-10.2); NEUT % 76.1 % (42.8-82.8); PLATELET COUNT 149 K/MM3 (134-434); RBC 2.96 M/mm3 (4.00-5.60); RDW 22.4 % (11.9-15.9); WHITE BLOOD COUNT 6.8 K/mm3 (4.0-10.0)
[2017-11-22 07:54] LABS: ANION GAP 9 (8-16); BLOOD UREA NITROGEN 81 mg/dL (7-18); CALCIUM 7.1 mg/dL (8.5-10.1); CHLORIDE 111 mmol/L (98-107); CO2 25 mmol/L (21-32); GLUCOSE,RANDOM 73 mg/dL (74-106); MAGNESIUM 2.1 mg/dL (1.8-2.4); POTASSIUM 4.1 mmol/L (3.5-5.1); SODIUM 145 mmol/L (136-145)
[2017-11-22] MEDS ORDERED: PT OWN MED DRAWER 7, Y5N ONE ×2 (09:38→16:23)
[2017-11-22] MEDS: CLOPIDOGREL BISULFATE 75 MG TABLET (FP) PO SCH (09:50)
[2017-11-22] MEDS: AZITHROMYCIN IVPB 250 MG in DEXTROSE 5%-WATER - 250 ML IVPB SCH (09:50)
[2017-11-22] MEDS: SODIUM BICARBONATE 650 MG TABLET PO SCH ×2 (09:51→23:34)
--- NOTE | 2017-11-22 10:46 | PN ---
Progress Note (short form) - Note Progress Note: cc: sob S: + productive cough persists. + sob. no cp, palps, dizziness. no orthopnea Current Medications Generic Name Dose Route Start Last Admin Trade Name Connie PRN Reason Stop Dose Admin Atorvastatin Calcium 40 mg 11/17/17 22:00 11/21/17 21:19 Lipitor - PO 40 mg HS DAGO Administration Clopidogrel Bisulfate 75 mg 11/17/17 10:00 11/22/17 09:50 Plavix - PO 75 mg DAILY DAGO Administration Heparin Sodium (Porcine) 5,000 unit 11/16/17 06:00 11/22/17 05:52 Heparin - SQ 5,000 unit TID DAGO Administration Hydralazine HCl 20 mg 11/19/17 22:00 11/22/17 05:52 Apresoline - PO 20 mg TID DAGO Administration Azithromycin 250 mg/ Dextrose 250 mls @ 250 mls/hr 11/19/17 10:00 11/22/17 09 :50 IVPB 250 mls/hr DAILY DAGO Administration Piperacillin Sod/Tazobactam 50 mls @ 100 mls/hr 11/20/17 16:30 11/22/17 09:50 Sod 2.25 gm/ Dextrose IVPB 100 mls/hr Q8H-IV DAGO Administration Protocol Insulin Aspart 1 vial 11/16/17 22:00 11/21/17 21:24 Novolog Vial Sliding Scale - SQ 6 unit HS DAGO Administration Protocol Insulin Aspart 1 vial 11/17/17 07:00 11/22/17 06:07 Novolog Vial Sliding Scale - SQ Not Given TIDAC DAGO Protocol Metoprolol Succinate 50 mg 11/17/17 10:00 11/22/17 09:51 Toprol Xl - PO 50 mg DAILY DAGO Administration Sodium Bicarbonate 650 mg 11/17/17 22:00 11/22/17 09:51 Sodium Bicarbonate - PO 650 mg BID DAGO Administration Tamsulosin HCl 0.4 mg 11/16/17 22:00 11/21/17 21:20 Flomax - PO 0.4 mg HS DAGO Administration pe: Vital Signs Period Temp Pulse Resp BP Sys/Lauren Pulse Ox Last 24 Hr 97.6 F-99.0 F 60-90 18-20 128-153/59-77 97 nad, calm rrr s1s2 (faint) no mrg bibasilar dullness, nl eff aaox3 no le e/c/c abd nt nd pos bs no jaundice diaphoresis CBC, BMP 11/22/17 07:04 11/22/17 07:04 ecg vpaced, underlying appears aflutter tele ;v-paced echo 10/2017: moderate concentric lvh. 1+ lve. mod-sev decreased LV sys fn, global. nl RV size. mod decreased RV sys fn. mod mitra. mod-sev mac. mod mr. mod-sev tr. rvsp > 60. trivial effusion. echo 11/2016: low nl lvef, mild lvh, nl rv, mitra, mod mr/tr, mod phtn echo 02/2015: mild lv dil, nl lvef, basal post-lat HK, nl rv size/fcn, severe biatrial dil, sev mr, sev tr, sev phtn, mod pr echo 11/2014: nl lv/rv, mod-sev mr, sev tr, sev phtn cxr: chf, right eff cxr: increased size of right effusion/right infiltrate. renal u/s: chronic medical renal disease. trace free fluid in upper abdomen. bilateral pleural effusions. see emr for detailed findings. mibi 11/2016: no ischemia a/p: 67 m hx cad s/p nstemi/pci (11/2014 pt had chf with +trops so sent for cath [facility] and had rota and GIOVANNI to pLAD, residual dLCx and ramus 50-60% both), dchf, htn, hld, dm, ckd, afib on coumadin, cva, ppm (biotronik 05/2012), remote AAA repair, pad s/p left fem stent 2015 and left toe amp here with sob. sob, acute diastolic chf, New systolic cardiomyopathy: - echo here shows new systolic cardiomyopathy. will need to consider stress vs. cath once euvolemic (inpatient vs. outpatient) pending course of KELLI/CKD. - 11/18: net even thus far today on daily iv lasix. worsened effusion on cxr today. will uptitrate lasix to bid dosing. starting afterload reduction with hydralazine 10 tid. - 11/19: further uptitrate lasix to 80 mg bid. extra dose of 80 mg tonight. Uptitrate afterload reduction. -11/20: cont current iv lasix - 4/3: renal function worse. per renal hold lasix. -11/22: remains off lasix. cr similar to yesterday. resume maintenance lasix when possible. renal following. -no signs acs kelli on ckd: -holding lasix -renal following cad/pci: -stable, no cp/angina/acs -preserved lvef echo 2017 and no ischemia on 2017 mibi, but with known cad/ residual disease now with new cardiomypathy. ischemic eval as mentioned above. -cont home bb, statin, plavix htn: -cont bb, hydral hld: -cont statin afib,aflutter,atach: -rate controlled as pt has complete heart block with ppm -Has hx of cva and was on AC and dapt previously before a prior GIB, and aortoenteric fistula. was followed by vascular at [facility], now by Dr. Ren. DAPT was deemed safe to resume in 2016 after LE stent. For now, cont plavix monotherapy. ppm (biotronik for CHB): -Normal fcn on recent office check, next routine check planned 11/2017 remote aaa repair/pad s/p multiple interventions and toe amputations : -stable, continue bp control. plavix, statin
--- NOTE | 2017-11-22 11:05 | PN ---
Progress Note, Physician History of Present Illness: patient says he is feeling a little better eating a little better - Current Medication List Current Medications: Active Medications Atorvastatin Calcium (Lipitor -) 40 mg PO [facility] Last Admin: 11/21/17 21:19 Dose: 40 mg Clopidogrel Bisulfate (Plavix -) 75 mg PO DAILY [facility] Last Admin: 11/22/17 09:50 Dose: 75 mg Heparin Sodium (Porcine) (Heparin -) 5,000 unit SQ TID [facility] Last Admin: 11/22/17 05:52 Dose: 5,000 unit Hydralazine HCl (Apresoline -) 20 mg PO TID [facility] Last Admin: 11/22/17 05:52 Dose: 20 mg Azithromycin 250 mg/ Dextrose 250 mls @ 250 mls/hr IVPB DAILY [facility] Last Admin: 11/22/17 09:50 Dose: 250 mls/hr Piperacillin Sod/Tazobactam (Sod 2.25 gm/ Dextrose) 50 mls @ 100 mls/hr IVPB Q8H-IV [facility] PRN Reason: Protocol Last Admin: 11/22/17 09:50 Dose: 100 mls/hr Insulin Aspart (Novolog Vial Sliding Scale -) 1 vial SQ [facility] PRN Reason: Protocol Last Admin: 11/21/17 21:24 Dose: 6 unit Insulin Aspart (Novolog Vial Sliding Scale -) 1 vial SQ TIDAC [facility] PRN Reason: Protocol Last Admin: 11/22/17 06:07 Dose: Not Given Metoprolol Succinate (Toprol Xl -) 50 mg PO DAILY [facility] Last Admin: 11/22/17 09:51 Dose: 50 mg Sodium Bicarbonate (Sodium Bicarbonate -) 650 mg PO BID [facility] Last Admin: 11/22/17 09:51 Dose: 650 mg Tamsulosin HCl (Flomax -) 0.4 mg PO [facility] Last Admin: 11/21/17 21:20 Dose: 0.4 mg - Objective Vital Signs: Vital Signs Temperature 98 F 11/22/17 09:59 Pulse Rate 60 11/22/17 09:59 Respiratory Rate 18 11/22/17 09:59 Blood Pressure 148/60 11/22/17 09:59 O2 Sat by Pulse Oximetry (%) 97 11/21/17 21:00 Constitutional: Yes: No Distress, Calm, Thin Cardiovascular: Yes: Regular Rate and Rhythm Respiratory: Yes: Regular, CTA Bilaterally Gastrointestinal: Yes: Normal Bowel Sounds, Soft Musculoskeletal: Yes: WNL Extremities: Yes: WNL Neurological: Yes: Alert, Oriented Psychiatric: Yes: Alert, Oriented Labs: CBC, BMP 11/22/17 07:04 11/22/17 07:04 INR, PTT INR 0.99 (0.82-1.09) 11/16/17 16:00 Assessment/Plan Problem List - Problems (1) Acute CHF Code(s): I50.9 - HEART FAILURE, UNSPECIFIED Qualifiers: Heart failure type: diastolic Qualified Code(s): I50.31 - Acute diastolic ( congestive) heart failure (2) Acute on chronic renal failure Code(s): N17.9 - ACUTE KIDNEY FAILURE, UNSPECIFIED; N18.9 - CHRONIC KIDNEY DISEASE, UNSPECIFIED Qualifiers: Acute renal failure type: unspecified Chronic kidney disease stage: unspecified stage Qualified Code(s): N17.9 - Acute kidney failure, unspecified ; N18.9 - Chronic kidney disease, unspecified; N18.9 - Chronic kidney disease, unspecified (3) Hypoxia Code(s): R09.02 - HYPOXEMIA (4) Atrial fibrillation Code(s): I48.91 - UNSPECIFIED ATRIAL FIBRILLATION Qualifiers: Atrial fibrillation type: paroxysmal Qualified Code(s): I48.0 - Paroxysmal atrial fibrillation (5) Diabetes Code(s): E11.9 - TYPE 2 DIABETES MELLITUS WITHOUT COMPLICATIONS Qualifiers: Diabetes mellitus type: type 2 Diabetes mellitus complication status: with circulatory complication (6) Hypertension Code(s): I10 - ESSENTIAL (PRIMARY) HYPERTENSION Qualifiers: Hypertension type: essential hypertension Qualified Code(s): I10 - Essential (primary) hypertension (7) UTI complicated plan continue current mgmt stop zithro after 5 days incentive carrie nutrition patient improving
--- NOTE | 2017-11-22 11:35 | PN ---
Progress Note, Physician Chief Complaint: Mr Howard continues to improve, suspect close to baseline. No cp, sob, n/v. - Current Medication List Current Medications: Active Medications Atorvastatin Calcium (Lipitor -) 40 mg PO HS [facility] Last Admin: 11/21/17 21:19 Dose: 40 mg Clopidogrel Bisulfate (Plavix -) 75 mg PO DAILY [facility] Last Admin: 11/22/17 09:50 Dose: 75 mg Heparin Sodium (Porcine) (Heparin -) 5,000 unit SQ TID [facility] Last Admin: 11/22/17 05:52 Dose: 5,000 unit Hydralazine HCl (Apresoline -) 20 mg PO TID [facility] Last Admin: 11/22/17 05:52 Dose: 20 mg Azithromycin 250 mg/ Dextrose 250 mls @ 250 mls/hr IVPB DAILY [facility] Last Admin: 11/22/17 09:50 Dose: 250 mls/hr Piperacillin Sod/Tazobactam (Sod 2.25 gm/ Dextrose) 50 mls @ 100 mls/hr IVPB Q8H-IV [facility] PRN Reason: Protocol Stop: 11/27/17 10:29 Insulin Aspart (Novolog Vial Sliding Scale -) 1 vial SQ [facility] PRN Reason: Protocol Last Admin: 11/21/17 21:24 Dose: 6 unit Insulin Aspart (Novolog Vial Sliding Scale -) 1 vial SQ TIDAC [facility] PRN Reason: Protocol Last Admin: 11/22/17 06:07 Dose: Not Given Metoprolol Succinate (Toprol Xl -) 50 mg PO DAILY [facility] Last Admin: 11/22/17 09:51 Dose: 50 mg Sodium Bicarbonate (Sodium Bicarbonate -) 650 mg PO BID [facility] Last Admin: 11/22/17 09:51 Dose: 650 mg Tamsulosin HCl (Flomax -) 0.4 mg PO [facility] Last Admin: 11/21/17 21:20 Dose: 0.4 mg - Objective Vital Signs: Vital Signs Temperature 36.6 C 11/22/17 09:59 Pulse Rate 60 11/22/17 09:59 Respiratory Rate 18 11/22/17 09:59 Blood Pressure 148/60 11/22/17 09:59 O2 Sat by Pulse Oximetry (%) 97 11/21/17 21:00 Constitutional: Yes: Well Nourished, No Distress, Calm Cardiovascular: Yes: Regular Rate and Rhythm. No: Gallop, Murmur, Rub Respiratory: Yes: Regular, CTA Bilaterally. No: Rales, Rhonchi, Wheezes Gastrointestinal: Yes: Normal Bowel Sounds, Soft. No: Distention, Tenderness Extremities: Yes: WNL Edema: No Labs: CBC, BMP 11/22/17 07:04 11/22/17 07:04 INR, PTT INR 0.99 (0.82-1.09) 11/16/17 16:00 Problem List - Problems (1) Acute CHF Code(s): I50.9 - HEART FAILURE, UNSPECIFIED Qualifiers: Heart failure type: diastolic Qualified Code(s): I50.31 - Acute diastolic ( congestive) heart failure (2) Acute on chronic renal failure Code(s): N17.9 - ACUTE KIDNEY FAILURE, UNSPECIFIED; N18.9 - CHRONIC KIDNEY DISEASE, UNSPECIFIED Qualifiers: Acute renal failure type: unspecified Chronic kidney disease stage: unspecified stage Qualified Code(s): N17.9 - Acute kidney failure, unspecified ; N18.9 - Chronic kidney disease, unspecified; N18.9 - Chronic kidney disease, unspecified (3) Hypoxia Code(s): R09.02 - HYPOXEMIA (4) Atrial fibrillation Code(s): I48.91 - UNSPECIFIED ATRIAL FIBRILLATION Qualifiers: Atrial fibrillation type: paroxysmal Qualified Code(s): I48.0 - Paroxysmal atrial fibrillation (5) Diabetes Code(s): E11.9 - TYPE 2 DIABETES MELLITUS WITHOUT COMPLICATIONS Qualifiers: Diabetes mellitus type: type 2 Diabetes mellitus complication status: with circulatory complication (6) Hypertension Code(s): I10 - ESSENTIAL (PRIMARY) HYPERTENSION Qualifiers: Hypertension type: essential hypertension Qualified Code(s): I10 - Essential (primary) hypertension Assessment/Plan (1) Acute CHF Assessment/Plan: -lasix held today -patient appears at baseline -defer to cardiology when to start oral lasix -nephrology managing renal function Code(s): I50.9 - HEART FAILURE, UNSPECIFIED Qualifiers: Heart failure type: diastolic Qualified Code(s): I50.31 - Acute diastolic ( congestive) heart failure (2) Acute on chronic renal failure Assessment/Plan: -stabilizing -no need for HD at this time Code(s): N17.9 - ACUTE KIDNEY FAILURE, UNSPECIFIED; N18.9 - CHRONIC KIDNEY DISEASE, UNSPECIFIED Qualifiers: Acute renal failure type: unspecified Chronic kidney disease stage: unspecified stage Qualified Code(s): N17.9 - Acute kidney failure, unspecified ; N18.9 - Chronic kidney disease, unspecified; N18.9 - Chronic kidney disease, unspecified (3) Hypoxia Assessment/Plan: -resolved Code(s): R09.02 - HYPOXEMIA (4) Atrial fibrillation Assessment/Plan: -sounds in sinus rhythm on exam today -cardiology following -continue plavix, not on AC Code(s): I48.91 - UNSPECIFIED ATRIAL FIBRILLATION Qualifiers: Atrial fibrillation type: paroxysmal Qualified Code(s): I48.0 - Paroxysmal atrial fibrillation (5) Diabetes Assessment/Plan: -diabetic diet and SSI Code(s): E11.9 - TYPE 2 DIABETES MELLITUS WITHOUT COMPLICATIONS Qualifiers: Diabetes mellitus type: type 2 Diabetes mellitus complication status: with circulatory complication (6) Hypertension Assessment/Plan: -well controlled -continue toprol xl -on IV lasix for CHF Code(s): I10 - ESSENTIAL (PRIMARY) HYPERTENSION Qualifiers: Hypertension type: essential hypertension Qualified Code(s): I10 - Essential (primary) hypertension (7) UTI -case d/w Dr Gambino -continue manoj
[2017-11-22] MEDS ORDERED: IRON SUCROSE INJECTION 100 MG in SODIUM CHLORIDE 95 ML IVPB ONE (11:39)
--- NOTE | 2017-11-22 12:02 | PN ---
Progress Note, Physician History of Present Illness: pulmonary alert,slowly improving,less dyspneic - Current Medication List Current Medications: Active Medications Atorvastatin Calcium (Lipitor -) [address] [facility] Last Admin: 11/21/17 21:19 Dose: 40 mg Clopidogrel Bisulfate (Plavix -) 75 mg PO DAILY [facility] Last Admin: 11/22/17 09:50 Dose: 75 mg Heparin Sodium (Porcine) (Heparin -) 5,000 unit SQ TID [facility] Last Admin: 11/22/17 05:52 Dose: 5,000 unit Hydralazine HCl (Apresoline -) 20 mg PO TID [facility] Last Admin: 11/22/17 05:52 Dose: 20 mg Azithromycin 250 mg/ Dextrose 250 mls @ 250 mls/hr IVPB DAILY [facility] Last Admin: 11/22/17 09:50 Dose: 250 mls/hr Piperacillin Sod/Tazobactam (Sod 2.25 gm/ Dextrose) 50 mls @ 100 mls/hr IVPB Q8H-IV [facility] PRN Reason: Protocol Stop: 11/27/17 10:29 Iron Sucrose 100 mg/ Sodium (Chloride) 100 mls @ 200 mls/hr IVPB ONCE ONE Stop: 11/22/17 12:08 Insulin Aspart (Novolog Vial Sliding Scale -) [address] [facility] PRN Reason: Protocol Last Admin: 11/21/17 21:24 Dose: 6 unit Insulin Aspart (Novolog Vial Sliding Scale -) 1 vial SQ TIDAC [facility] PRN Reason: Protocol Last Admin: 11/22/17 06:07 Dose: Not Given Metoprolol Succinate (Toprol Xl -) 50 mg PO DAILY [facility] Last Admin: 11/22/17 09:51 Dose: 50 mg Sodium Bicarbonate (Sodium Bicarbonate -) 650 mg PO BID [facility] Last Admin: 11/22/17 09:51 Dose: 650 mg Tamsulosin HCl (Flomax -) 0.[address] [facility] Last Admin: 11/21/17 21:20 Dose: 0.4 mg - Objective Vital Signs: Vital Signs Temperature 98 F 11/22/17 09:59 Pulse Rate 60 11/22/17 09:59 Respiratory Rate 18 11/22/17 09:59 Blood Pressure 148/60 11/22/17 09:59 O2 Sat by Pulse Oximetry (%) 97 11/21/17 21:00 Constitutional: Yes: Well Nourished, Calm Eyes: Yes: WNL HENT: Yes: WNL Neck: Yes: WNL Cardiovascular: Yes: Pulse Irregular, S1, S2 Respiratory: Yes: Rales (bibasilar crackles) Gastrointestinal: Yes: Normal Bowel Sounds, Soft Extremities: Yes: WNL Edema: No Labs: CBC, BMP 11/22/17 07:04 11/22/17 07:04 INR, PTT INR 0.99 (0.82-1.09) 11/16/17 16:00 Problem List - Problems (1) Acute CHF Code(s): I50.9 - HEART FAILURE, UNSPECIFIED Qualifiers: Heart failure type: diastolic Qualified Code(s): I50.31 - Acute diastolic ( congestive) heart failure (2) Acute on chronic renal failure Code(s): N17.9 - ACUTE KIDNEY FAILURE, UNSPECIFIED; N18.9 - CHRONIC KIDNEY DISEASE, UNSPECIFIED Qualifiers: Acute renal failure type: unspecified Chronic kidney disease stage: unspecified stage Qualified Code(s): N17.9 - Acute kidney failure, unspecified ; N18.9 - Chronic kidney disease, unspecified; N18.9 - Chronic kidney disease, unspecified (3) Hypoxia Code(s): R09.02 - HYPOXEMIA (4) Atrial fibrillation Code(s): I48.91 - UNSPECIFIED ATRIAL FIBRILLATION Qualifiers: Atrial fibrillation type: paroxysmal Qualified Code(s): I48.0 - Paroxysmal atrial fibrillation (5) Congestive heart failure Code(s): I50.9 - HEART FAILURE, UNSPECIFIED Qualifiers: Qualified Code(s): I50.22 - Chronic systolic (congestive) heart failure (6) Coronary artery disease Code(s): I25.10 - ATHSCL HEART DISEASE OF [place] CORONARY ARTERY W/O ANG PCTRS Qualifiers: Coronary Disease-Associated Artery/Lesion type: [place] coronary artery [place] vs. transplanted heart: [place] heart Associated angina: without angina pectoris (7) Diabetes Code(s): E11.9 - TYPE 2 DIABETES MELLITUS WITHOUT COMPLICATIONS Qualifiers: Diabetes mellitus type: type 2 Diabetes mellitus complication status: with circulatory complication (8) NSTEMI (non-ST elevated myocardial infarction) Code(s): I21.4 - NON-ST ELEVATION (NSTEMI) MYOCARDIAL INFARCTION (9) Peripheral vascular disease Code(s): I73.9 - PERIPHERAL VASCULAR DISEASE, UNSPECIFIED Assessment/Plan IMP DYSPNEA SECONDARY TO DECOMPENSATED CHF IMPROVING ASHD S/P STENT DIASTOLIC HF R PLEURAL EFFUSION PULMONARY HTN AFIB S/P PPM PULMONARY HTN DM ACUTE ON CHRONIC KIDNEY DISEASE AAA S/P REPAIR PVD HTN PLAN O2 DAILY WTS PLAVIX MONITOR LYTES,RENAL FUNCTION DR SO Problem List - Problems (1) Acute CHF Code(s): I50.9 - HEART FAILURE, UNSPECIFIED Qualifiers: Heart failure type: unspecified Qualified Code(s): I50.9 - Heart failure, unspecified (2) Acute on chronic renal failure Code(s): N17.9 - ACUTE KIDNEY FAILURE, UNSPECIFIED; N18.9 - CHRONIC KIDNEY DISEASE, UNSPECIFIED Qualifiers: Acute renal failure type: unspecified Chronic kidney disease stage: unspecified stage Qualified Code(s): N17.9 - Acute kidney failure, unspecified ; N18.9 - Chronic kidney disease, unspecified; N18.9 - Chronic kidney disease, unspecified (3) Hypoxia Code(s): R09.02 - HYPOXEMIA (4) Atrial fibrillation Code(s): I48.91 - UNSPECIFIED ATRIAL FIBRILLATION Qualifiers: Atrial fibrillation type: paroxysmal Qualified Code(s): I48.0 - Paroxysmal atrial fibrillation (5) Congestive heart failure Code(s): I50.9 - HEART FAILURE, UNSPECIFIED Qualifiers: Qualified Code(s): I50.22 - Chronic systolic (congestive) heart failure (6) Coronary artery disease Code(s): I25.10 - ATHSCL HEART DISEASE OF [place] CORONARY ARTERY W/O ANG PCTRS Qualifiers: Coronary Disease-Associated Artery/Lesion type: [place] coronary artery [place] vs. transplanted heart: [place] heart Associated angina: without angina pectoris (7) Diabetes Code(s): E11.9 - TYPE 2 DIABETES MELLITUS WITHOUT COMPLICATIONS Qualifiers: Diabetes mellitus type: type 2 Diabetes mellitus complication status: with circulatory complication (8) NSTEMI (non-ST elevated myocardial infarction) Code(s): I21.4 - NON-ST ELEVATION (NSTEMI) MYOCARDIAL INFARCTION (9) Peripheral vascular disease Code(s): I73.9 - PERIPHERAL VASCULAR DISEASE, UNSPECIFIED
[2017-11-22] MEDS ORDERED: INSULIN (NOVOLOG) ASPART 100 UNITS/ML 10ML VIAL ONE (12:16)
[2017-11-22] MEDS ORDERED: DEXTROSE 5%-WATER - 50 ML IVPB ONE (16:24)
[2017-11-22] MEDS ORDERED: PIPERACILLIN/TAZOBACTAM 2.25 GM VIAL IVPB ONE (16:24)
[2017-11-22] MEDS: ATORVASTATIN CA 40 MG TABLET (FP) PO SCH (23:34)
[2017-11-22] MEDS: TAMSULOSIN HCL 0.4 MG CAP.ER.24H (FP) PO SCH (23:34)
[2017-11-23] MEDS ORDERED: PIPERACILLIN/TAZOBACTAM 2.25 GM VIAL IVPB ONE ×3 (01:06→17:26)
[2017-11-23] MEDS ORDERED: DEXTROSE 5%-WATER - 50 ML IVPB ONE ×3 (01:06→17:26)
[2017-11-23] MEDS: PIPERACILLIN/TAZOB 2.25 GM 2.25 GM in DEXTROSE 5%-WATER - 50 ML IVPB SCH ×3 (01:27→17:30)
[2017-11-23] MEDS: hydrALAZINE HCL 10 MG TABLET PO SCH ×3 (06:47→21:40)
[2017-11-23] MEDS: INSULIN SLIDING SCALE (NOVOLOG) 1 VIAL SQ SCH ×4 (06:47→21:39)
[2017-11-23 07:12] LABS: BASO % 0.9 % (0-2.0); EOS % 1.8 % (0-4.5); HEMATOCRIT 27.3 % (35.4-49); HEMOGLOBIN 8.9 GM/dL (11.7-16.9); LYMPH % 9.7 % (8-40); MCH 29.7 pg (25.7-33.7); MCHC 32.5 g/dl (32.0-35.9); MEAN CELL VOLUME 91.4 fl (80-96); MEAN PLT VOLUME 9.5 fl (7.5-11.1); MONO % 10.5 % (3.8-10.2); NEUT % 77.1 % (42.8-82.8); PLATELET COUNT 147 K/MM3 (134-434); RBC 2.99 M/mm3 (4.00-5.60); RDW 21.9 % (11.9-15.9); WHITE BLOOD COUNT 6.9 K/mm3 (4.0-10.0)
[2017-11-23 07:53] LABS: CHLORIDE 110 mmol/L (98-107); SODIUM 145 mmol/L (136-145)
[2017-11-23 08:01] LABS: ANION GAP 13 (8-16); BLOOD UREA NITROGEN 76 mg/dL (7-18); CALCIUM 7.5 mg/dL (8.5-10.1); CO2 22 mmol/L (21-32); GLUCOSE,RANDOM 144 mg/dL (74-106); MAGNESIUM 2.4 mg/dL (1.8-2.4)
--- NOTE | 2017-11-23 10:17 | PN ---
Progress Note, Physician Chief Complaint: Mr Howard says he feels fine. No cp, sob, n/v. - Current Medication List Current Medications: Active Medications Atorvastatin Calcium (Lipitor -) 40 mg PO [facility] Last Admin: 11/22/17 23:34 Dose: 40 mg Clopidogrel Bisulfate (Plavix -) 75 mg PO DAILY [facility] Last Admin: 11/22/17 09:50 Dose: 75 mg Hydralazine HCl (Apresoline -) 20 mg PO TID [facility] Last Admin: 11/23/17 06:47 Dose: 20 mg Piperacillin Sod/Tazobactam (Sod 2.25 gm/ Dextrose) 50 mls @ 100 mls/hr IVPB Q8H-IV [facility] PRN Reason: Protocol Stop: 11/27/17 10:29 Last Admin: 11/23/17 01:27 Dose: 100 mls/hr Insulin Aspart (Novolog Vial Sliding Scale -) 1 vial SQ HS [facility] PRN Reason: Protocol Last Admin: 11/22/17 23:34 Dose: 2 unit Insulin Aspart (Novolog Vial Sliding Scale -) 1 vial SQ TIDAC [facility] PRN Reason: Protocol Last Admin: 11/23/17 06:47 Dose: Not Given Metoprolol Succinate (Toprol Xl -) 50 mg PO DAILY [facility] Last Admin: 11/22/17 09:51 Dose: 50 mg Sodium Bicarbonate (Sodium Bicarbonate -) 650 mg PO BID [facility] Last Admin: 11/22/17 23:34 Dose: 650 mg Tamsulosin HCl (Flomax -) 0.4 mg PO [facility] Last Admin: 11/22/17 23:34 Dose: 0.4 mg - Objective Vital Signs: Vital Signs Temperature 36.8 C 11/23/17 09:00 Pulse Rate 70 11/23/17 09:00 Respiratory Rate 20 11/23/17 09:00 Blood Pressure 162/70 11/23/17 09:00 O2 Sat by Pulse Oximetry (%) 96 11/23/17 09:00 Constitutional: Yes: Well Nourished, No Distress, Calm Cardiovascular: Yes: Regular Rate and Rhythm. No: Gallop, Murmur, Rub Respiratory: Yes: Regular, CTA Bilaterally. No: Rales, Rhonchi, Wheezes Gastrointestinal: Yes: Normal Bowel Sounds, Soft. No: Distention, Tenderness Extremities: Yes: WNL Edema: No Labs: CBC, BMP 11/23/17 05:35 11/23/17 05:35 INR, PTT INR 0.99 (0.82-1.09) 11/16/17 16:00 Problem List - Problems (1) Acute CHF Code(s): I50.9 - HEART FAILURE, UNSPECIFIED Qualifiers: Heart failure type: diastolic Qualified Code(s): I50.31 - Acute diastolic ( congestive) heart failure (2) Acute on chronic renal failure Code(s): N17.9 - ACUTE KIDNEY FAILURE, UNSPECIFIED; N18.9 - CHRONIC KIDNEY DISEASE, UNSPECIFIED Qualifiers: Acute renal failure type: unspecified Chronic kidney disease stage: unspecified stage Qualified Code(s): N17.9 - Acute kidney failure, unspecified ; N18.9 - Chronic kidney disease, unspecified; N18.9 - Chronic kidney disease, unspecified (3) Hypoxia Code(s): R09.02 - HYPOXEMIA (4) Atrial fibrillation Code(s): I48.91 - UNSPECIFIED ATRIAL FIBRILLATION Qualifiers: Atrial fibrillation type: paroxysmal Qualified Code(s): I48.0 - Paroxysmal atrial fibrillation (5) Diabetes Code(s): E11.9 - TYPE 2 DIABETES MELLITUS WITHOUT COMPLICATIONS Qualifiers: Diabetes mellitus type: type 2 Diabetes mellitus complication status: with circulatory complication (6) Hypertension Code(s): I10 - ESSENTIAL (PRIMARY) HYPERTENSION Qualifiers: Hypertension type: essential hypertension Qualified Code(s): I10 - Essential (primary) hypertension Assessment/Plan (1) Acute CHF Assessment/Plan: -lasix held today -patient appears at baseline -cardiology note reviewed, possible starting lasix tomorrow Code(s): I50.9 - HEART FAILURE, UNSPECIFIED Qualifiers: Heart failure type: diastolic Qualified Code(s): I50.31 - Acute diastolic ( congestive) heart failure (2) Acute on chronic renal failure Assessment/Plan: -stabilizing -no need for HD at this time Code(s): N17.9 - ACUTE KIDNEY FAILURE, UNSPECIFIED; N18.9 - CHRONIC KIDNEY DISEASE, UNSPECIFIED Qualifiers: Acute renal failure type: unspecified Chronic kidney disease stage: unspecified stage Qualified Code(s): N17.9 - Acute kidney failure, unspecified ; N18.9 - Chronic kidney disease, unspecified; N18.9 - Chronic kidney disease, unspecified (3) Hypoxia Assessment/Plan: -resolved Code(s): R09.02 - HYPOXEMIA (4) Atrial fibrillation Assessment/Plan: -sounds in sinus rhythm on exam today -cardiology following -continue plavix, not on AC Code(s): I48.91 - UNSPECIFIED ATRIAL FIBRILLATION Qualifiers: Atrial fibrillation type: paroxysmal Qualified Code(s): I48.0 - Paroxysmal atrial fibrillation (5) Diabetes Assessment/Plan: -diabetic diet and SSI Code(s): E11.9 - TYPE 2 DIABETES MELLITUS WITHOUT COMPLICATIONS Qualifiers: Diabetes mellitus type: type 2 Diabetes mellitus complication status: with circulatory complication (6) Hypertension Assessment/Plan: -well controlled -continue toprol xl -on IV lasix for CHF Code(s): I10 - ESSENTIAL (PRIMARY) HYPERTENSION Qualifiers: Hypertension type: essential hypertension Qualified Code(s): I10 - Essential (primary) hypertension (7) UTI -case d/w Dr Gambino -continue manoj currently
[2017-11-23] MEDS: AZITHROMYCIN IVPB 250 MG in DEXTROSE 5%-WATER - 250 ML IVPB SCH (10:30)
[2017-11-23] MEDS: SODIUM BICARBONATE 650 MG TABLET PO SCH ×2 (10:33→21:40)
[2017-11-23] MEDS: CLOPIDOGREL BISULFATE 75 MG TABLET (FP) PO SCH (10:33)
--- NOTE | 2017-11-23 10:49 | PN ---
Progress Note (short form) - Note Progress Note: cc: sob S: no sob cp, palps, dizziness. no orthopnea Current Medications Generic Name Dose Route Start Last Admin Trade Name Connie PRN Reason Stop Dose Admin Atorvastatin Calcium 40 mg 11/17/17 22:00 11/22/17 23:34 Lipitor - PO 40 mg HS DAGO Administration Clopidogrel Bisulfate 75 mg 11/17/17 10:00 11/23/17 10:33 Plavix - PO 75 mg DAILY DAGO Administration Furosemide 80 mg 11/24/17 10:00 Lasix - PO DAILY DAGO Hydralazine HCl 20 mg 11/19/17 22:00 11/23/17 06:47 Apresoline - PO 20 mg TID DAGO Administration Piperacillin Sod/Tazobactam 50 mls @ 100 mls/hr 11/22/17 18:00 11/23/17 10:33 Sod 2.25 gm/ Dextrose IVPB 11/27/17 10:29 100 mls/hr Q8H-IV DAGO Administration Protocol Insulin Aspart 1 vial 11/16/17 22:00 11/22/17 23:34 Novolog Vial Sliding Scale - SQ 2 unit HS DAGO Administration Protocol Insulin Aspart 1 vial 11/17/17 07:00 11/23/17 06:47 Novolog Vial Sliding Scale - SQ Not Given TIDAC DAGO Protocol Metoprolol Succinate 50 mg 11/17/17 10:00 11/23/17 10:33 Toprol Xl - PO 50 mg DAILY DAGO Administration Sodium Bicarbonate 650 mg 11/17/17 22:00 11/23/17 10:33 Sodium Bicarbonate - PO 650 mg BID DAGO Administration Tamsulosin HCl 0.4 mg 11/16/17 22:00 11/22/17 23:34 Flomax - PO 0.4 mg HS DAGO Administration Vital Signs Period Temp Pulse Resp BP Sys/Lauren Pulse Ox Last 24 Hr 97.3 F-98.4 F 64-70 18-20 137-162/60-78 96-96 nad, calm rrr s1s2 (faint) no mrg cta bl nl eff aaox3 no le e/c/c abd nt nd pos bs no jaundice diaphoresis CBC, BMP 11/23/17 05:35 11/23/17 05:35 ecg vpaced, underlying appears aflutter tele ;v-paced echo 10/2017: moderate concentric lvh. 1+ lve. mod-sev decreased LV sys fn, global. nl RV size. mod decreased RV sys fn. mod mitra. mod-sev mac. mod mr. mod-sev tr. rvsp > 60. trivial effusion. echo 11/2016: low nl lvef, mild lvh, nl rv, mitra, mod mr/tr, mod phtn echo 02/2015: mild lv dil, nl lvef, basal post-lat HK, nl rv size/fcn, severe biatrial dil, sev mr, sev tr, sev phtn, mod pr echo 11/2014: nl lv/rv, mod-sev mr, sev tr, sev phtn cxr: chf, right eff cxr: increased size of right effusion/right infiltrate. renal u/s: chronic medical renal disease. trace free fluid in upper abdomen. bilateral pleural effusions. see emr for detailed findings. mibi 11/2016: no ischemia a/p: 67 m hx cad s/p nstemi/pci (11/2014 pt had chf with +trops so sent for cath MSH and had rota and GIOVANNI to pLAD, residual dLCx and ramus 50-60% both), dchf, htn, hld, dm, ckd, afib on coumadin, cva, ppm (biotronik 05/2012), remote AAA repair, pad s/p left fem stent 2015 and left toe amp here with sob. sob, acute diastolic chf, New systolic cardiomyopathy: - echo here shows new systolic cardiomyopathy. will need to consider stress vs. cath once euvolemic (inpatient vs. outpatient) pending course of KELLI/CKD. - 11/18: net even thus far today on daily iv lasix. worsened effusion on cxr today. will uptitrate lasix to bid dosing. starting afterload reduction with hydralazine 10 tid. - 11/19: further uptitrate lasix to 80 mg bid. extra dose of 80 mg tonight. Uptitrate afterload reduction. -11/20: cont current iv lasix - 11/21: renal function worse. per renal hold lasix. -11/22: remains off lasix. cr similar to yesterday. resume maintenance lasix when possible. renal following. -11/23: will start maintenance lasix 80 po qd tomorrow -no signs acs kelli on ckd: -cr stable -renal following cad/pci: -stable, no cp/angina/acs -preserved lvef echo 2017 and no ischemia on 2017 mibi, but with known cad/ residual disease now with new cardiomypathy. ischemic eval as mentioned above. -cont home bb, statin, plavix htn: -cont bb, hydral hld: -cont statin afib,aflutter,atach: -rate controlled as pt has complete heart block with ppm -Has hx of cva and was on AC and dapt previously before a prior GIB, and aortoenteric fistula. was followed by vascular at [facility], now by Dr. Ren. DAPT was deemed safe to resume in 2016 after LE stent. For now, cont plavix monotherapy. ppm (biotronik for CHB): -Normal fcn on recent office check, next routine check planned 11/2017 remote aaa repair/pad s/p multiple interventions and toe amputations : -stable, continue bp control. plavix, statin
--- NOTE | 2017-11-23 12:36 | PN ---
Progress Note, Physician History of Present Illness: patient doing well no issues says he is starting to feel better - Current Medication List Current Medications: Active Medications Atorvastatin Calcium (Lipitor -) 40 mg PO [facility] Last Admin: 11/22/17 23:34 Dose: 40 mg Clopidogrel Bisulfate (Plavix -) 75 mg PO DAILY [facility] Last Admin: 11/23/17 10:33 Dose: 75 mg Furosemide (Lasix -) 80 mg PO DAILY [facility] Hydralazine HCl (Apresoline -) 20 mg PO TID [facility] Last Admin: 11/23/17 06:47 Dose: 20 mg Piperacillin Sod/Tazobactam (Sod 2.25 gm/ Dextrose) 50 mls @ 100 mls/hr IVPB Q8H-IV [facility] PRN Reason: Protocol Stop: 11/27/17 10:29 Last Admin: 11/23/17 10:33 Dose: 100 mls/hr Insulin Aspart (Novolog Vial Sliding Scale -) 1 vial SQ HS [facility] PRN Reason: Protocol Last Admin: 11/22/17 23:34 Dose: 2 unit Insulin Aspart (Novolog Vial Sliding Scale -) 1 vial SQ TIDAC [facility] PRN Reason: Protocol Last Admin: 11/23/17 11:59 Dose: 4 units Metoprolol Succinate (Toprol Xl -) 50 mg PO DAILY [facility] Last Admin: 11/23/17 10:33 Dose: 50 mg Sodium Bicarbonate (Sodium Bicarbonate -) 650 mg PO BID [facility] Last Admin: 11/23/17 10:33 Dose: 650 mg Tamsulosin HCl (Flomax -) 0.4 mg PO [facility] Last Admin: 11/22/17 23:34 Dose: 0.4 mg - Objective Vital Signs: Vital Signs Temperature 98.3 F 11/23/17 09:00 Pulse Rate 70 11/23/17 09:00 Respiratory Rate 20 11/23/17 09:00 Blood Pressure 162/70 11/23/17 09:00 O2 Sat by Pulse Oximetry (%) 96 11/23/17 09:00 Constitutional: Yes: No Distress, Calm Cardiovascular: Yes: Regular Rate and Rhythm Respiratory: Yes: Poor Air Entry, Other Gastrointestinal: Yes: Normal Bowel Sounds, Soft Musculoskeletal: Yes: WNL Extremities: Yes: Other Neurological: Yes: Alert, Oriented Psychiatric: Yes: Alert, Oriented Labs: CBC, BMP 11/23/17 05:35 11/23/17 05:35 INR, PTT INR 0.99 (0.82-1.09) 11/16/17 16:00 Assessment/Plan Problem List - Problems (1) Acute CHF Code(s): I50.9 - HEART FAILURE, UNSPECIFIED Qualifiers: Heart failure type: diastolic Qualified Code(s): I50.31 - Acute diastolic ( congestive) heart failure (2) Acute on chronic renal failure Code(s): N17.9 - ACUTE KIDNEY FAILURE, UNSPECIFIED; N18.9 - CHRONIC KIDNEY DISEASE, UNSPECIFIED Qualifiers: Acute renal failure type: unspecified Chronic kidney disease stage: unspecified stage Qualified Code(s): N17.9 - Acute kidney failure, unspecified ; N18.9 - Chronic kidney disease, unspecified; N18.9 - Chronic kidney disease, unspecified (3) Hypoxia Code(s): R09.02 - HYPOXEMIA (4) Atrial fibrillation Code(s): I48.91 - UNSPECIFIED ATRIAL FIBRILLATION Qualifiers: Atrial fibrillation type: paroxysmal Qualified Code(s): I48.0 - Paroxysmal atrial fibrillation (5) Diabetes Code(s): E11.9 - TYPE 2 DIABETES MELLITUS WITHOUT COMPLICATIONS Qualifiers: Diabetes mellitus type: type 2 Diabetes mellitus complication status: with circulatory complication (6) Hypertension Code(s): I10 - ESSENTIAL (PRIMARY) HYPERTENSION Qualifiers: Hypertension type: essential hypertension Qualified Code(s): I10 - Essential (primary) hypertension (7) UTI complicated plan continue zosyn finish abx course for a total of 7 days once 7 days are done patient does not need any more abx
--- NOTE | 2017-11-23 13:01 | PN ---
Progress Note (short form) - Note Progress Note: PULMONARY States breathing better. Less cough. Last Vital Signs Temp Pulse Resp BP Pulse Ox 98.3 F 70 20 162/70 96 11/23/17 09:00 11/23/17 09:00 11/23/17 09:00 11/23/17 09:00 11/23/17 09:00 Intake & Output 11/20/17 11/21/17 11/22/17 11/23/17 23:59 23:59 23:59 23:59 Intake Total 780 960 340 Output Total 400 1260 440 Balance 380 -300 -100 Weight 73.028 kg 70.931 kg 69.967 kg 72.121 kg Gen: NAD at rest Heart: RRR Lung: decreased breath sounds right base 1/3 up Abd: soft, nontender Ext: no edema CBC, BMP 11/23/17 05:35 11/23/17 05:35 Active Medications Atorvastatin Calcium (Lipitor -) 40 mg PO HS [facility] Last Admin: 11/22/17 23:34 Dose: 40 mg Clopidogrel Bisulfate (Plavix -) 75 mg PO DAILY [facility] Last Admin: 11/23/17 10:33 Dose: 75 mg Furosemide (Lasix -) 80 mg PO DAILY [facility] Hydralazine HCl (Apresoline -) 20 mg PO TID [facility] Last Admin: 11/23/17 06:47 Dose: 20 mg Piperacillin Sod/Tazobactam (Sod 2.25 gm/ Dextrose) 50 mls @ 100 mls/hr IVPB Q8H-IV [facility] PRN Reason: Protocol Stop: 11/27/17 10:29 Last Admin: 11/23/17 10:33 Dose: 100 mls/hr Insulin Aspart (Novolog Vial Sliding Scale -) 1 vial SQ HS [facility] PRN Reason: Protocol Last Admin: 11/22/17 23:34 Dose: 2 unit Insulin Aspart (Novolog Vial Sliding Scale -) 1 vial SQ TIDAC [facility] PRN Reason: Protocol Last Admin: 11/23/17 11:59 Dose: 4 units Metoprolol Succinate (Toprol Xl -) 50 mg PO DAILY [facility] Last Admin: 11/23/17 10:33 Dose: 50 mg Sodium Bicarbonate (Sodium Bicarbonate -) 650 mg PO BID [facility] Last Admin: 11/23/17 10:33 Dose: 650 mg Tamsulosin HCl (Flomax -) 0.4 mg PO HS [facility] Last Admin: 11/22/17 23:34 Dose: 0.4 mg A/P Acute on Chronic Systolic Heart Failure Right Pleural Effusion likely from above Pulmonary HTN Atrial Fibrillation Acute on Chronic Renal Failure AAA s/p repair HTN DM PAD - continue lasix - monitor urine output, creatinine - O2 to keep Spo2 >90% - rate control - will repeat CXR today - DVT prophylaxis
--- NOTE | 2017-11-23 13:21 | PN ---
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 seen at bedside switched to oral lasix more able to tolerate physical activity Problems- 67 year old gentleman with PMhx of CKD Stage 3, CHF, AFib, Hypertension weakness, sob, CHF exacerbation with KELLI Current Medications Atorvastatin Calcium (Lipitor -) 40 mg PO HS [facility] Last Admin: 11/22/17 23:34 Dose: 40 mg Clopidogrel Bisulfate (Plavix -) 75 mg PO DAILY [facility] Last Admin: 11/23/17 10:33 Dose: 75 mg Furosemide (Lasix -) 80 mg PO DAILY [facility] Hydralazine HCl (Apresoline -) 20 mg PO TID [facility] Last Admin: 11/23/17 06:47 Dose: 20 mg Piperacillin Sod/Tazobactam (Sod 2.25 gm/ Dextrose) 50 mls @ 100 mls/hr IVPB Q8H-IV [facility] PRN Reason: Protocol Stop: 11/27/17 10:29 Last Admin: 11/23/17 10:33 Dose: 100 mls/hr Insulin Aspart (Novolog Vial Sliding Scale -) 1 vial SQ [facility] PRN Reason: Protocol Last Admin: 11/22/17 23:34 Dose: 2 unit Insulin Aspart (Novolog Vial Sliding Scale -) 1 vial SQ TIDAC [facility] PRN Reason: Protocol Last Admin: 11/23/17 11:59 Dose: 4 units Metoprolol Succinate (Toprol Xl -) 50 mg PO DAILY [facility] Last Admin: 11/23/17 10:33 Dose: 50 mg Sodium Bicarbonate (Sodium Bicarbonate -) 650 mg PO BID [facility] Last Admin: 11/23/17 10:33 Dose: 650 mg Tamsulosin HCl (Flomax -) 0.4 mg PO [facility] Last Admin: 11/22/17 23:34 Dose: 0.4 mg Last Vital Signs Temp Pulse Resp BP Pulse Ox 98.3 F 70 20 162/70 96 11/23/17 09:00 11/23/17 09:00 11/23/17 09:00 11/23/17 09:00 11/23/17 09:00 lungs clear heart reg abd soft nontender ext IMP -KELLI on CKD: renal failure seems to have plateaued Heart Failure- still symptomatic, + orthopneic -Unilateral Pleural effusion -Hyperkalemia tendency Renal Us done- kayley echogenicity c/wchronic renal disease simple cyst in right kidney and non obstructing renal stones Plan monitor renal function
[2017-11-23] MEDS ORDERED: PT OWN MED DRAWER 7, Y5N ONE (17:26)
[2017-11-23] MEDS ORDERED: INSULIN (NOVOLOG) ASPART 100 UNITS/ML 10ML VIAL ONE (21:33)
[2017-11-23] MEDS: ATORVASTATIN CA 40 MG TABLET (FP) PO SCH (21:40)
[2017-11-23] MEDS: TAMSULOSIN HCL 0.4 MG CAP.ER.24H (FP) PO SCH (21:40)
[2017-11-24] MEDS ORDERED: DEXTROSE 5%-WATER - 50 ML IVPB ONE ×3 (00:58→17:28)
[2017-11-24] MEDS ORDERED: PIPERACILLIN/TAZOBACTAM 2.25 GM VIAL IVPB ONE ×3 (00:58→17:27)
[2017-11-24] MEDS: PIPERACILLIN/TAZOB 2.25 GM 2.25 GM in DEXTROSE 5%-WATER - 50 ML IVPB SCH ×3 (01:15→17:34)
[2017-11-24] MEDS: hydrALAZINE HCL 10 MG TABLET PO SCH ×3 (05:50→21:29)
[2017-11-24] MEDS: INSULIN SLIDING SCALE (NOVOLOG) 1 VIAL SQ SCH ×4 (06:03→21:30)
[2017-11-24 06:59] LABS: BASO % 0.7 % (0-2.0); EOS % 1.4 % (0-4.5); HEMATOCRIT 25.3 % (35.4-49); HEMOGLOBIN 8.2 GM/dL (11.7-16.9); LYMPH % 8.5 % (8-40); MCH 29.9 pg (25.7-33.7); MCHC 32.6 g/dl (32.0-35.9); MEAN CELL VOLUME 91.7 fl (80-96); NEUT % 79.4 % (42.8-82.8); PLATELET COUNT 166 K/MM3 (134-434); RBC 2.76 M/mm3 (4.00-5.60); RDW 22.3 % (11.9-15.9); WHITE BLOOD COUNT 7.5 K/mm3 (4.0-10.0)
[2017-11-24 07:13] LABS: ANION GAP 9 (8-16); BLOOD UREA NITROGEN 78 mg/dL (7-18); CHLORIDE 111 mmol/L (98-107); CO2 24 mmol/L (21-32); GLUCOSE,RANDOM 122 mg/dL (74-106); MAGNESIUM 2.3 mg/dL (1.8-2.4); POTASSIUM 4.4 mmol/L (3.5-5.1); SODIUM 144 mmol/L (136-145)
[2017-11-24 07:16] LABS: CALCIUM 7.2 mg/dL (8.5-10.1)
[2017-11-24 07:24] LABS: ADD RBC MORPHOLOGY YES
[2017-11-24 07:29] LABS: ANISOCYTOSIS 3+
[2017-11-24] MEDS: SODIUM BICARBONATE 650 MG TABLET PO SCH ×2 (09:43→21:29)
[2017-11-24] MEDS: FUROSEMIDE 40 MG TABLET (FP) PO SCH (09:43)
[2017-11-24] MEDS: CLOPIDOGREL BISULFATE 75 MG TABLET (FP) PO SCH (09:43)
--- NOTE | 2017-11-24 11:32 | PN ---
Progress Note, Physician Chief Complaint: Mr Howard says he feels fine. No cp, sob, n/v. - Current Medication List Current Medications: Active Medications Atorvastatin Calcium (Lipitor -) 40 mg PO [facility] Last Admin: 11/23/17 21:40 Dose: 40 mg Clopidogrel Bisulfate (Plavix -) 75 mg PO DAILY [facility] Last Admin: 11/24/17 09:43 Dose: 75 mg Furosemide (Lasix -) 80 mg PO DAILY [facility] Last Admin: 11/24/17 09:43 Dose: 80 mg Hydralazine HCl (Apresoline -) 20 mg PO TID [facility] Last Admin: 11/24/17 05:50 Dose: 20 mg Piperacillin Sod/Tazobactam (Sod 2.25 gm/ Dextrose) 50 mls @ 100 mls/hr IVPB Q8H-IV [facility] PRN Reason: Protocol Stop: 11/27/17 10:29 Last Admin: 11/24/17 09:44 Dose: 100 mls/hr Insulin Aspart (Novolog Vial Sliding Scale -) 1 vial SQ [facility] PRN Reason: Protocol Last Admin: 11/23/17 21:39 Dose: 2 unit Insulin Aspart (Novolog Vial Sliding Scale -) 1 vial SQ TIDAC [facility] PRN Reason: Protocol Last Admin: 11/24/17 06:03 Dose: Not Given Metoprolol Succinate (Toprol Xl -) 50 mg PO DAILY [facility] Last Admin: 11/24/17 09:43 Dose: 50 mg Sodium Bicarbonate (Sodium Bicarbonate -) 650 mg PO BID [facility] Last Admin: 11/24/17 09:43 Dose: 650 mg Tamsulosin HCl (Flomax -) 0.4 mg PO [facility] Last Admin: 11/23/17 21:40 Dose: 0.4 mg - Objective Vital Signs: Vital Signs Temperature 36.8 C 11/24/17 10:00 Pulse Rate 69 11/24/17 10:00 Respiratory Rate 20 11/24/17 10:00 Blood Pressure 160/75 11/24/17 10:00 O2 Sat by Pulse Oximetry (%) 98 11/24/17 10:00 Constitutional: Yes: Well Nourished, No Distress, Calm Cardiovascular: Yes: Pulse Irregular. No: Tachycardia, Gallop, Murmur, Rub Respiratory: Yes: Regular, CTA Bilaterally. No: Rales, Rhonchi, Wheezes Gastrointestinal: Yes: Normal Bowel Sounds, Soft. No: Distention, Tenderness Extremities: Yes: WNL Edema: Yes Edema: LLE: Trace, RLE: Trace Labs: CBC, BMP 11/24/17 06:15 11/24/17 06:15 INR, PTT INR 0.99 (0.82-1.09) 11/16/17 16:00 Problem List - Problems (1) Acute CHF Code(s): I50.9 - HEART FAILURE, UNSPECIFIED Qualifiers: Heart failure type: diastolic Qualified Code(s): I50.31 - Acute diastolic ( congestive) heart failure (2) Acute on chronic renal failure Code(s): N17.9 - ACUTE KIDNEY FAILURE, UNSPECIFIED; N18.9 - CHRONIC KIDNEY DISEASE, UNSPECIFIED Qualifiers: Acute renal failure type: unspecified Chronic kidney disease stage: unspecified stage Qualified Code(s): N17.9 - Acute kidney failure, unspecified ; N18.9 - Chronic kidney disease, unspecified; N18.9 - Chronic kidney disease, unspecified (3) Hypoxia Code(s): R09.02 - HYPOXEMIA (4) Atrial fibrillation Code(s): I48.91 - UNSPECIFIED ATRIAL FIBRILLATION Qualifiers: Atrial fibrillation type: paroxysmal Qualified Code(s): I48.0 - Paroxysmal atrial fibrillation (5) Diabetes Code(s): E11.9 - TYPE 2 DIABETES MELLITUS WITHOUT COMPLICATIONS Qualifiers: Diabetes mellitus type: type 2 Diabetes mellitus complication status: with circulatory complication (6) Hypertension Code(s): I10 - ESSENTIAL (PRIMARY) HYPERTENSION Qualifiers: Hypertension type: essential hypertension Qualified Code(s): I10 - Essential (primary) hypertension Assessment/Plan (1) Acute CHF Assessment/Plan: -lasix restarted -monitor renal function -stable Code(s): I50.9 - HEART FAILURE, UNSPECIFIED Qualifiers: Heart failure type: diastolic Qualified Code(s): I50.31 - Acute diastolic ( congestive) heart failure (2) Acute on chronic renal failure Assessment/Plan: -stabilizing -no need for HD at this time Code(s): N17.9 - ACUTE KIDNEY FAILURE, UNSPECIFIED; N18.9 - CHRONIC KIDNEY DISEASE, UNSPECIFIED Qualifiers: Acute renal failure type: unspecified Chronic kidney disease stage: unspecified stage Qualified Code(s): N17.9 - Acute kidney failure, unspecified ; N18.9 - Chronic kidney disease, unspecified; N18.9 - Chronic kidney disease, unspecified (3) Hypoxia Assessment/Plan: -resolved Code(s): R09.02 - HYPOXEMIA (4) Atrial fibrillation Assessment/Plan: -rate controlled -cardiology following -continue plavix, not on AC Code(s): I48.91 - UNSPECIFIED ATRIAL FIBRILLATION Qualifiers: Atrial fibrillation type: paroxysmal Qualified Code(s): I48.0 - Paroxysmal atrial fibrillation (5) Diabetes Assessment/Plan: -diabetic diet and SSI Code(s): E11.9 - TYPE 2 DIABETES MELLITUS WITHOUT COMPLICATIONS Qualifiers: Diabetes mellitus type: type 2 Diabetes mellitus complication status: with circulatory complication (6) Hypertension Assessment/Plan: -well controlled -continue toprol xl Code(s): I10 - ESSENTIAL (PRIMARY) HYPERTENSION Qualifiers: Hypertension type: essential hypertension Qualified Code(s): I10 - Essential (primary) hypertension (7) UTI -case d/w Dr Gambino -continue manoj currently -plan for discharge on Monday once antibiotic course is finished
--- NOTE | 2017-11-24 11:32 | PN ---
Progress Note, Physician History of Present Illness: PULMONARY ALERT,FEELING BETTER,LESS DYSPNEIC - Current Medication List Current Medications: Active Medications Atorvastatin Calcium (Lipitor -) 40 mg PO [facility] Last Admin: 11/23/17 21:40 Dose: 40 mg Clopidogrel Bisulfate (Plavix -) 75 mg PO DAILY [facility] Last Admin: 11/24/17 09:43 Dose: 75 mg Furosemide (Lasix -) 80 mg PO DAILY [facility] Last Admin: 11/24/17 09:43 Dose: 80 mg Hydralazine HCl (Apresoline -) 20 mg PO TID [facility] Last Admin: 11/24/17 05:50 Dose: 20 mg Piperacillin Sod/Tazobactam (Sod 2.25 gm/ Dextrose) 50 mls @ 100 mls/hr IVPB Q8H-IV [facility] PRN Reason: Protocol Stop: 11/27/17 10:29 Last Admin: 11/24/17 09:44 Dose: 100 mls/hr Insulin Aspart (Novolog Vial Sliding Scale -) 1 vial SQ [facility] PRN Reason: Protocol Last Admin: 11/23/17 21:39 Dose: 2 unit Insulin Aspart (Novolog Vial Sliding Scale -) 1 vial SQ TIDAC [facility] PRN Reason: Protocol Last Admin: 11/24/17 06:03 Dose: Not Given Metoprolol Succinate (Toprol Xl -) 50 mg PO DAILY [facility] Last Admin: 11/24/17 09:43 Dose: 50 mg Sodium Bicarbonate (Sodium Bicarbonate -) 650 mg PO BID [facility] Last Admin: 11/24/17 09:43 Dose: 650 mg Tamsulosin HCl (Flomax -) 0.4 mg PO [facility] Last Admin: 11/23/17 21:40 Dose: 0.4 mg - Objective Vital Signs: Vital Signs Temperature 98.2 F 11/24/17 10:00 Pulse Rate 69 11/24/17 10:00 Respiratory Rate 20 11/24/17 10:00 Blood Pressure 160/75 11/24/17 10:00 O2 Sat by Pulse Oximetry (%) 98 11/24/17 10:00 Constitutional: Yes: Well Nourished, Calm Eyes: Yes: WNL HENT: Yes: WNL Neck: Yes: WNL Cardiovascular: Yes: Regular Rate and Rhythm, S1, S2 Respiratory: Yes: Rales (BIBASILAR RALES) Gastrointestinal: Yes: Normal Bowel Sounds, Soft Extremities: Yes: WNL Edema: No Labs: CBC, BMP 11/24/17 06:15 11/24/17 06:15 INR, PTT INR 0.99 (0.82-1.09) 11/16/17 16:00 Problem List - Problems (1) Acute CHF Code(s): I50.9 - HEART FAILURE, UNSPECIFIED Qualifiers: Heart failure type: diastolic Qualified Code(s): I50.31 - Acute diastolic ( congestive) heart failure (2) Acute on chronic renal failure Code(s): N17.9 - ACUTE KIDNEY FAILURE, UNSPECIFIED; N18.9 - CHRONIC KIDNEY DISEASE, UNSPECIFIED Qualifiers: Acute renal failure type: unspecified Chronic kidney disease stage: unspecified stage Qualified Code(s): N17.9 - Acute kidney failure, unspecified ; N18.9 - Chronic kidney disease, unspecified; N18.9 - Chronic kidney disease, unspecified (3) Hypoxia Code(s): R09.02 - HYPOXEMIA (4) Atrial fibrillation Code(s): I48.91 - UNSPECIFIED ATRIAL FIBRILLATION Qualifiers: Atrial fibrillation type: paroxysmal Qualified Code(s): I48.0 - Paroxysmal atrial fibrillation (5) Congestive heart failure Code(s): I50.9 - HEART FAILURE, UNSPECIFIED Qualifiers: Qualified Code(s): I50.22 - Chronic systolic (congestive) heart failure (6) Coronary artery disease Code(s): I25.10 - ATHSCL HEART DISEASE OF [place] CORONARY ARTERY W/O ANG PCTRS Qualifiers: Coronary Disease-Associated Artery/Lesion type: [place] coronary artery [place] vs. transplanted heart: [place] heart Associated angina: without angina pectoris (7) Diabetes Code(s): E11.9 - TYPE 2 DIABETES MELLITUS WITHOUT COMPLICATIONS Qualifiers: Diabetes mellitus type: type 2 Diabetes mellitus complication status: with circulatory complication (8) NSTEMI (non-ST elevated myocardial infarction) Code(s): I21.4 - NON-ST ELEVATION (NSTEMI) MYOCARDIAL INFARCTION (9) Peripheral vascular disease Code(s): I73.9 - PERIPHERAL VASCULAR DISEASE, UNSPECIFIED Assessment/Plan IMP DYSPNEA SECONDARY TO DECOMPENSATED CHF IMPROVING ASHD S/P STENT DIASTOLIC HF R PLEURAL EFFUSION PULMONARY HTN AFIB S/P PPM PULMONARY HTN DM ACUTE ON CHRONIC KIDNEY DISEASE AAA S/P REPAIR PVD HTN PLAN LASIX O2 DAILY WTS PLAVIX MONITOR LYTES,RENAL FUNCTION DR SO Problem List - Problems (1) Acute CHF Code(s): I50.9 - HEART FAILURE, UNSPECIFIED Qualifiers: Heart failure type: unspecified Qualified Code(s): I50.9 - Heart failure, unspecified (2) Acute on chronic renal failure Code(s): N17.9 - ACUTE KIDNEY FAILURE, UNSPECIFIED; N18.9 - CHRONIC KIDNEY DISEASE, UNSPECIFIED Qualifiers: Acute renal failure type: unspecified Chronic kidney disease stage: unspecified stage Qualified Code(s): N17.9 - Acute kidney failure, unspecified ; N18.9 - Chronic kidney disease, unspecified; N18.9 - Chronic kidney disease, unspecified (3) Hypoxia Code(s): R09.02 - HYPOXEMIA (4) Atrial fibrillation Code(s): I48.91 - UNSPECIFIED ATRIAL FIBRILLATION Qualifiers: Atrial fibrillation type: paroxysmal Qualified Code(s): I48.0 - Paroxysmal atrial fibrillation (5) Congestive heart failure Code(s): I50.9 - HEART FAILURE, UNSPECIFIED Qualifiers: Qualified Code(s): I50.22 - Chronic systolic (congestive) heart failure (6) Coronary artery disease Code(s): I25.10 - ATHSCL HEART DISEASE OF [place] CORONARY ARTERY W/O ANG PCTRS Qualifiers: Coronary Disease-Associated Artery/Lesion type: [place] coronary artery [place] vs. transplanted heart: [place] heart Associated angina: without angina pectoris (7) Diabetes Code(s): E11.9 - TYPE 2 DIABETES MELLITUS WITHOUT COMPLICATIONS Qualifiers: Diabetes mellitus type: type 2 Diabetes mellitus complication status: with circulatory complication (8) NSTEMI (non-ST elevated myocardial infarction) Code(s): I21.4 - NON-ST ELEVATION (NSTEMI) MYOCARDIAL INFARCTION (9) Peripheral vascular disease Code(s): I73.9 - PERIPHERAL VASCULAR DISEASE, UNSPECIFIED
--- NOTE | 2017-11-24 11:39 | PN ---
Progress Note (short form) - Note Progress Note: cc: sob S: no sob cp, palps, dizziness. no orthopnea Current Medications Generic Name Dose Route Start Last Admin Trade Name Connie PRN Reason Stop Dose Admin Atorvastatin Calcium 40 mg 11/17/17 22:00 11/23/17 21:40 Lipitor - PO 40 mg HS DAGO Administration Clopidogrel Bisulfate 75 mg 11/17/17 10:00 11/24/17 09:43 Plavix - PO 75 mg DAILY DAGO Administration Furosemide 80 mg 11/24/17 10:00 11/24/17 09:43 Lasix - PO 80 mg DAILY DAGO Administration Hydralazine HCl 20 mg 11/19/17 22:00 11/24/17 05:50 Apresoline - PO 20 mg TID DAGO Administration Piperacillin Sod/Tazobactam 50 mls @ 100 mls/hr 11/22/17 18:00 11/24/17 09:44 Sod 2.25 gm/ Dextrose IVPB 11/27/17 10:29 100 mls/hr Q8H-IV DAGO Administration Protocol Insulin Aspart 1 vial 11/16/17 22:00 11/23/17 21:39 Novolog Vial Sliding Scale - SQ 2 unit HS DAGO Administration Protocol Insulin Aspart 1 vial 11/17/17 07:00 11/24/17 11:35 Novolog Vial Sliding Scale - SQ 2 units TIDAC DAGO Administration Protocol Metoprolol Succinate 50 mg 11/17/17 10:00 11/24/17 09:43 Toprol Xl - PO 50 mg DAILY DAGO Administration Sodium Bicarbonate 650 mg 11/17/17 22:00 11/24/17 09:43 Sodium Bicarbonate - PO 650 mg BID DAGO Administration Tamsulosin HCl 0.4 mg 11/16/17 22:00 11/23/17 21:40 Flomax - PO 0.4 mg HS DAGO Administration Vital Signs Period Temp Pulse Resp BP Sys/Lauren Pulse Ox Last 24 Hr 97.2 F-98.2 F 69-83 20-20 141-163/56-87 98-98 nad, calm rrr s1s2 (faint) no mrg cta bl nl eff aaox3 no le e/c/c abd nt nd pos bs no jaundice diaphoresis CBC, BMP 11/24/17 06:15 11/24/17 06:15 ecg vpaced, underlying appears aflutter tele ;v-paced echo 10/2017: moderate concentric lvh. 1+ lve. mod-sev decreased LV sys fn, global. nl RV size. mod decreased RV sys fn. mod mitra. mod-sev mac. mod mr. mod-sev tr. rvsp > 60. trivial effusion. echo 11/2016: low nl lvef, mild lvh, nl rv, mitra, mod mr/tr, mod phtn echo 02/2015: mild lv dil, nl lvef, basal post-lat HK, nl rv size/fcn, severe biatrial dil, sev mr, sev tr, sev phtn, mod pr echo 11/2014: nl lv/rv, mod-sev mr, sev tr, sev phtn cxr: chf, right eff cxr: increased size of right effusion/right infiltrate. renal u/s: chronic medical renal disease. trace free fluid in upper abdomen. bilateral pleural effusions. see emr for detailed findings. mibi 11/2016: no ischemia a/p: 67 m hx cad s/p nstemi/pci (11/2014 pt had chf with +trops [place] [facility] [place] and GIOVANNI to pLAD, residual dLCx and ramus 50-60% both), dchf, htn, hld, dm, ckd, afib on coumadin, cva, ppm (biotronik 05/2012), remote AAA repair, pad s/p left fem stent 2015 and left toe amp here with sob. sob, acute diastolic chf, New systolic cardiomyopathy: - echo here shows new systolic cardiomyopathy. will need to consider stress vs. cath once euvolemic (inpatient vs. outpatient) pending course of KELLI/CKD. - 11/18: net even thus far today on daily iv lasix. worsened effusion on cxr today. will uptitrate lasix to bid dosing. starting afterload reduction with hydralazine 10 tid. - 11/19: further uptitrate lasix to 80 mg bid. extra dose of 80 mg tonight. Uptitrate afterload reduction. -11/20: cont current iv lasix - 11/21: renal function worse. per renal hold lasix. -11/22: remains off lasix. cr similar to yesterday. resume maintenance lasix when possible. renal following. -11/23: will start maintenance lasix 80 po qd tomorrow -11/24: cont po lasix, ok for torsemide if renal prefers -no signs acs kelli on ckd: -cr stable -renal following cad/pci: -stable, no cp/angina/acs -preserved lvef echo 2017 and no ischemia on 2017 mibi, but with known cad/ residual disease now with new cardiomypathy. ischemic eval as mentioned above. -cont home bb, statin, plavix htn: -cont bb, hydral hld: -cont statin afib,aflutter,atach: -rate controlled as pt has complete heart block with ppm -Has hx of cva and was on AC and dapt previously before a prior GIB, and aortoenteric fistula. was followed by vascular at [facility], now by Dr. Ren. DAPT was deemed safe to resume in 2015 after LE stent. For now, cont plavix monotherapy. ppm (biotronik for CHB): -Normal fcn on recent office check, next routine check planned 11/2017 remote aaa repair/pad s/p multiple interventions and toe amputations : -stable, continue bp control. plavix, statin
--- NOTE | 2017-11-24 14:51 | PN ---
Progress Note (short form) - Note Progress Note: Renal follow up for KELLI on CKD Pt seen and examined at the bedside awake and alert no acute complaints on room air Vital Signs Temperature 98.2 F 11/24/17 10:00 Pulse Rate 69 11/24/17 10:00 Respiratory Rate 20 11/24/17 10:00 Blood Pressure 160/75 11/24/17 10:00 O2 Sat by Pulse Oximetry (%) 98 11/24/17 10:00 Intake & Output 11/21/17 11/22/17 11/23/17 11/24/17 23:59 23:59 23:59 23:59 Intake Total 960 340 600 170 Output Total 1260 440 300 250 Balance -300 -100 300 -80 Weight 70.931 kg 69.967 kg 72.121 kg 71.384 kg NAD, awake and alert RRR Dec BS, no rales Trace LE edema CBC, BMP 11/24/17 06:15 11/24/17 06:15 Current Medications Atorvastatin Calcium (Lipitor -) 40 mg PO HS [facility] Last Admin: 11/23/17 21:40 Dose: 40 mg Clopidogrel Bisulfate (Plavix -) 75 mg PO DAILY [facility] Last Admin: 11/24/17 09:43 Dose: 75 mg Furosemide (Lasix -) 80 mg PO DAILY [facility] Last Admin: 11/24/17 09:43 Dose: 80 mg Hydralazine HCl (Apresoline -) 20 mg PO TID [facility] Last Admin: 11/24/17 14:07 Dose: 20 mg Piperacillin Sod/Tazobactam (Sod 2.25 gm/ Dextrose) 50 mls @ 100 mls/hr IVPB Q8H-IV DAGO PRN Reason: Protocol Stop: 11/27/17 10:29 Last Admin: 11/24/17 09:44 Dose: 100 mls/hr Insulin Aspart (Novolog Vial Sliding Scale -) 1 vial SQ HS DAGO PRN Reason: Protocol Last Admin: 11/23/17 21:39 Dose: 2 unit Insulin Aspart (Novolog Vial Sliding Scale -) 1 vial SQ TIDAC DAGO PRN Reason: Protocol Last Admin: 11/24/17 11:35 Dose: 2 units Metoprolol Succinate (Toprol Xl -) 50 mg PO DAILY [facility] Last Admin: 11/24/17 09:43 Dose: 50 mg Sodium Bicarbonate (Sodium Bicarbonate -) 650 mg PO BID [facility] Last Admin: 11/24/17 09:43 Dose: 650 mg Tamsulosin HCl (Flomax -) 0.4 mg PO HS [facility] Last Admin: 11/23/17 21:40 Dose: 0.4 mg 67 year old gentleman with PMhx of CKD Stage 3, CHF, AFib, Hypertension who presented with weakness and sob and found to have CHF exacerbation with KELLI #KELLI on CKD vs. progressive CKD #Nephrotic Proteinuira #SOB secondary to CHF exacerbation #Unilateral Pleural effusion #Mixed Respiratory and Metabolic acidosis #Hypernatremia #Hyperkalemia #UTI Renal function stable at this time Continue Lasix 80mg Daily Serologic work up for proteinuria thus far negative no acute indication for [employer] at the present time but pt may need it in the near future continue Abx as per DAREN Iraheta DO
--- NOTE | 2017-11-24 15:57 | PN ---
Progress Note, Physician History of Present Illness: patient stable doing well no new issues improving - Current Medication List Current Medications: Active Medications Atorvastatin Calcium (Lipitor -) 40 mg PO [facility] Last Admin: 11/23/17 21:40 Dose: 40 mg Clopidogrel Bisulfate (Plavix -) 75 mg PO DAILY [facility] Last Admin: 11/24/17 09:43 Dose: 75 mg Furosemide (Lasix -) 80 mg PO DAILY [facility] Last Admin: 11/24/17 09:43 Dose: 80 mg Hydralazine HCl (Apresoline -) 20 mg PO TID [facility] Last Admin: 11/24/17 14:07 Dose: 20 mg Piperacillin Sod/Tazobactam (Sod 2.25 gm/ Dextrose) 50 mls @ 100 mls/hr IVPB Q8H-IV [facility] PRN Reason: Protocol Stop: 11/27/17 10:29 Last Admin: 11/24/17 09:44 Dose: 100 mls/hr Insulin Aspart (Novolog Vial Sliding Scale -) 1 vial SQ [facility] PRN Reason: Protocol Last Admin: 11/23/17 21:39 Dose: 2 unit Insulin Aspart (Novolog Vial Sliding Scale -) 1 vial SQ TIDAC [facility] PRN Reason: Protocol Last Admin: 11/24/17 11:35 Dose: 2 units Metoprolol Succinate (Toprol Xl -) 50 mg PO DAILY [facility] Last Admin: 11/24/17 09:43 Dose: 50 mg Sodium Bicarbonate (Sodium Bicarbonate -) 650 mg PO BID [facility] Last Admin: 11/24/17 09:43 Dose: 650 mg Tamsulosin HCl (Flomax -) 0.4 mg PO [facility] Last Admin: 11/23/17 21:40 Dose: 0.4 mg - Objective Vital Signs: Vital Signs Temperature 97.6 F 11/24/17 14:00 Pulse Rate 72 11/24/17 14:00 Respiratory Rate 20 11/24/17 10:00 Blood Pressure 152/84 11/24/17 14:00 O2 Sat by Pulse Oximetry (%) 98 11/24/17 10:00 Constitutional: Yes: No Distress, Calm Cardiovascular: Yes: Regular Rate and Rhythm Respiratory: Yes: Regular, Poor Air Entry Gastrointestinal: Yes: Normal Bowel Sounds, Soft Musculoskeletal: Yes: WNL Extremities: Yes: WNL Neurological: Yes: Alert, Oriented Psychiatric: Yes: Alert, Oriented Labs: CBC, BMP 11/24/17 06:15 11/24/17 06:15 INR, PTT INR 0.99 (0.82-1.09) 11/16/17 16:00 Assessment/Plan Problem List - Problems (1) Acute CHF Code(s): I50.9 - HEART FAILURE, UNSPECIFIED Qualifiers: Heart failure type: diastolic Qualified Code(s): I50.31 - Acute diastolic ( congestive) heart failure (2) Acute on chronic renal failure Code(s): N17.9 - ACUTE KIDNEY FAILURE, UNSPECIFIED; N18.9 - CHRONIC KIDNEY DISEASE, UNSPECIFIED Qualifiers: Acute renal failure type: unspecified Chronic kidney disease stage: unspecified stage Qualified Code(s): N17.9 - Acute kidney failure, unspecified ; N18.9 - Chronic kidney disease, unspecified; N18.9 - Chronic kidney disease, unspecified (3) Hypoxia Code(s): R09.02 - HYPOXEMIA (4) Atrial fibrillation Code(s): I48.91 - UNSPECIFIED ATRIAL FIBRILLATION Qualifiers: Atrial fibrillation type: paroxysmal Qualified Code(s): I48.0 - Paroxysmal atrial fibrillation (5) Diabetes Code(s): E11.9 - TYPE 2 DIABETES MELLITUS WITHOUT COMPLICATIONS Qualifiers: Diabetes mellitus type: type 2 Diabetes mellitus complication status: with circulatory complication (6) Hypertension Code(s): I10 - ESSENTIAL (PRIMARY) HYPERTENSION Qualifiers: Hypertension type: essential hypertension Qualified Code(s): I10 - Essential (primary) hypertension (7) UTI complicated plan finish abx course continue current mgmt rest as per primary team finish 7 day course
[2017-11-24] MEDS: ATORVASTATIN CA 40 MG TABLET (FP) PO SCH (21:29)
[2017-11-24] MEDS: TAMSULOSIN HCL 0.4 MG CAP.ER.24H (FP) PO SCH (21:29)
[2017-11-25] MEDS ORDERED: PIPERACILLIN/TAZOBACTAM 2.25 GM VIAL IVPB ONE ×3 (01:03→16:58)
[2017-11-25] MEDS ORDERED: DEXTROSE 5%-WATER - 50 ML IVPB ONE ×3 (01:04→16:59)
[2017-11-25] MEDS: PIPERACILLIN/TAZOB 2.25 GM 2.25 GM in DEXTROSE 5%-WATER - 50 ML IVPB SCH ×3 (01:17→17:03)
[2017-11-25] MEDS: hydrALAZINE HCL 10 MG TABLET PO SCH ×3 (06:14→22:43)
[2017-11-25] MEDS: INSULIN SLIDING SCALE (NOVOLOG) 1 VIAL SQ SCH ×4 (06:15→22:43)
[2017-11-25 07:15] LABS: BASO % 1.1 % (0-2.0); EOS % 1.4 % (0-4.5); HEMATOCRIT 25.1 % (35.4-49); HEMOGLOBIN 8.4 GM/dL (11.7-16.9); LYMPH % 9.6 % (8-40); MCH 30.7 pg (25.7-33.7); MCHC 33.4 g/dl (32.0-35.9); MEAN CELL VOLUME 91.8 fl (80-96); MEAN PLT VOLUME 9.6 fl (7.5-11.1); MONO % 9.1 % (3.8-10.2); NEUT % 78.8 % (42.8-82.8); PLATELET COUNT 136 K/MM3 (134-434); RBC 2.73 M/mm3 (4.00-5.60); RDW 22.1 % (11.9-15.9); WHITE BLOOD COUNT 7.4 K/mm3 (4.0-10.0)
[2017-11-25 08:03] LABS: CHLORIDE 108 mmol/L (98-107); POTASSIUM 4.2 mmol/L (3.5-5.1); SODIUM 141 mmol/L (136-145)
[2017-11-25 08:32] LABS: ANION GAP 10 (8-16); BLOOD UREA NITROGEN 82 mg/dL (7-18); CALCIUM 7.4 mg/dL (8.5-10.1); CO2 23 mmol/L (21-32); CREATININE 4.2 mg/dL (0.7-1.3); GLUCOSE,RANDOM 224 mg/dL (74-106); MAGNESIUM 2.3 mg/dL (1.8-2.4); PHOSPHOROUS 5.9 mg/dL (2.5-4.9)
--- NOTE | 2017-11-25 09:11 | PN ---
Physical Exam: SUBJECTIVE: Patient seen and examined. denies any complaints, slept well, no SOB , no urinary symptoms OBJECTIVE: Vital Signs Period Temp Pulse Resp BP Sys/Lauren Pulse Ox Last 24 Hr 97.2 F-98.8 F 69-83 2-20 137-173/58-84 97-98 GENERAL: The patient is awake, alert, and fully oriented, in no acute distress. HEAD: Normal with no signs of trauma. EYES: PERRL, extraocular movements intact, sclera anicteric, conjunctiva clear. No ptosis. ENT: Ears normal, nares patent, oropharynx clear without exudates, moist mucous membranes. NECK: Trachea midline, full range of motion, supple. LUNGS: Breath sounds equal, clear to auscultation bilaterally, no wheezes, no crackles, no accessory muscle use. HEART: Regular rate and rhythm, S1, S2 without murmur, rub or gallop. ABDOMEN: Soft, nontender, nondistended, normoactive bowel sounds, no guarding, no rebound, no hepatosplenomegaly, no masses. EXTREMITIES: 2+ pulses, warm, well-perfused, no edema. NEUROLOGICAL: Cranial nerves II through XII grossly intact. Normal speech, gait not observed. PSYCH: Normal mood, normal affect. SKIN: Warm, dry, normal turgor, no rashes or lesions noted Laboratory Results - last 24 hr 11/24/17 11/24/17 11/24/17 11:16 16:53 21:28 WBC RBC Hgb Hct MCV MCH MCHC RDW Plt Count MPV Neutrophils % Lymphocytes % Monocytes % Eosinophils % Basophils % Sodium Potassium Chloride Carbon Dioxide Anion Gap BUN Creatinine POC Glucometer 201 305 277 Random Glucose Calcium Phosphorus Magnesium 11/25/17 11/25/17 11/25/17 05:00 05:00 06:11 WBC 7.4 RBC 2.73 L Hgb 8.4 L Hct 25.1 L MCV 91.8 MCH 30.7 MCHC 33.4 RDW 22.1 H Plt Count 136 MPV 9.6 Neutrophils % 78.8 Lymphocytes % 9.6 Monocytes % 9.1 Eosinophils % 1.4 Basophils % 1.1 Sodium 141 Potassium 4.2 Chloride 108 H Carbon Dioxide 23 Anion Gap 10 BUN 82 H Creatinine 4.2 H POC Glucometer 258 Random Glucose 224 H D Calcium 7.4 L Phosphorus 5.9 H Magnesium 2.3 Active Medications Generic Name Dose Route Start Last Admin Trade Name Chitoq PRN Reason Stop Dose Admin Atorvastatin Calcium 40 mg 11/17/17 22:00 11/24/17 21:29 Lipitor - PO 40 mg HS DAGO Administration Clopidogrel Bisulfate 75 mg 11/17/17 10:00 11/24/17 09:43 Plavix - PO 75 mg DAILY DAGO Administration Furosemide 80 mg 11/24/17 10:00 11/24/17 09:43 Lasix - PO 80 mg DAILY DAGO Administration Hydralazine HCl 20 mg 11/19/17 22:00 11/25/17 06:14 Apresoline - PO 20 mg TID DAGO Administration Piperacillin Sod/Tazobactam 50 mls @ 100 mls/hr 11/22/17 18:00 11/25/17 01:17 Sod 2.25 gm/ Dextrose IVPB 11/27/17 10:29 100 mls/hr Q8H-IV DAGO Administration Protocol Insulin Aspart 1 vial 11/16/17 22:00 11/24/17 21:30 Novolog Vial Sliding Scale - SQ 3 unit HS DAGO Administration Protocol Insulin Aspart 1 vial 11/17/17 07:00 11/25/17 06:15 Novolog Vial Sliding Scale - SQ 4 units TIDAC DAGO Administration Protocol Insulin Detemir 5 units 11/25/17 22:00 Levemir Vial SQ HS DAGO Metoprolol Succinate 50 mg 11/17/17 10:00 11/24/17 09:43 Toprol Xl - PO 50 mg DAILY DAGO Administration Sodium Bicarbonate 650 mg 11/17/17 22:00 11/24/17 21:29 Sodium Bicarbonate - PO 650 mg BID DAGO Administration Tamsulosin HCl 0.4 mg 11/16/17 22:00 11/24/17 21:29 Flomax - PO 0.4 mg HS DAGO Administration Tele reviewed - paced rhythm no events ASSESSMENT/PLAN: Initial presentation decompensated CHF now improved continue PO lasix, Toprol XL, lipitor, hydralazine UTI - continue IV Zosyn 2 more days CKD - at likely new baseline DM2 - uncontrolled - add Levemir 5 HS Afib - on plavix Anemia - stable Visit type - Emergency Visit Emergency Visit: Yes ED Registration Date: 11/16/17 Care time: The patient presented to the Emergency Department on the above date and was hospitalized for further evaluation of their emergent condition. - New Patient This patient is new to me today: Yes Date on this admission: 11/25/17 - Critical Care Critical Care patient: No
--- NOTE | 2017-11-25 10:09 | PN ---
Progress Note, Physician History of Present Illness: pulmonary resting in bed ,comfortable,-resp distress - Current Medication List Current Medications: Active Medications Atorvastatin Calcium (Lipitor -) 40 mg PO [facility] Last Admin: 11/24/17 21:29 Dose: 40 mg Clopidogrel Bisulfate (Plavix -) 75 mg PO DAILY [facility] Last Admin: 11/24/17 09:43 Dose: 75 mg Furosemide (Lasix -) 80 mg PO DAILY [facility] Last Admin: 11/24/17 09:43 Dose: 80 mg Hydralazine HCl (Apresoline -) 20 mg PO TID [facility] Last Admin: 11/25/17 06:14 Dose: 20 mg Piperacillin Sod/Tazobactam (Sod 2.25 gm/ Dextrose) 50 mls @ 100 mls/hr IVPB Q8H-IV [facility] PRN Reason: Protocol Stop: 11/27/17 10:29 Last Admin: 11/25/17 01:17 Dose: 100 mls/hr Insulin Aspart (Novolog Vial Sliding Scale -) 1 vial SQ [facility] PRN Reason: Protocol Last Admin: 11/24/17 21:30 Dose: 3 unit Insulin Aspart (Novolog Vial Sliding Scale -) 1 vial SQ TIDAC [facility] PRN Reason: Protocol Last Admin: 11/25/17 06:15 Dose: 4 units Insulin Detemir (Levemir Vial) 5 units SQ [facility] Metoprolol Succinate (Toprol Xl -) 50 mg PO DAILY [facility] Last Admin: 11/24/17 09:43 Dose: 50 mg Sodium Bicarbonate (Sodium Bicarbonate -) 650 mg PO BID [facility] Last Admin: 11/24/17 21:29 Dose: 650 mg Tamsulosin HCl (Flomax -) 0.4 mg PO [facility] Last Admin: 11/24/17 21:29 Dose: 0.4 mg - Objective Vital Signs: Vital Signs Temperature 98.4 F 11/25/17 08:44 Pulse Rate 83 11/25/17 08:44 Respiratory Rate 2 L 11/25/17 08:44 Blood Pressure 146/75 11/25/17 08:44 O2 Sat by Pulse Oximetry (%) 97 11/24/17 20:21 Constitutional: Yes: Well Nourished, Calm Eyes: Yes: WNL HENT: Yes: WNL Neck: Yes: WNL Cardiovascular: Yes: Pulse Irregular, S1, S2 Respiratory: Yes: Rales (few bibasilar rales) Gastrointestinal: Yes: Normal Bowel Sounds, Soft Extremities: Yes: WNL Edema: No Labs: CBC, BMP 11/25/17 05:00 11/25/17 05:00 INR, PTT INR 0.99 (0.82-1.09) 11/16/17 16:00 Problem List - Problems (1) Acute CHF Code(s): I50.9 - HEART FAILURE, UNSPECIFIED Qualifiers: Heart failure type: diastolic Qualified Code(s): I50.31 - Acute diastolic ( congestive) heart failure (2) Acute on chronic renal failure Code(s): N17.9 - ACUTE KIDNEY FAILURE, UNSPECIFIED; N18.9 - CHRONIC KIDNEY DISEASE, UNSPECIFIED Qualifiers: Acute renal failure type: unspecified Chronic kidney disease stage: unspecified stage Qualified Code(s): N17.9 - Acute kidney failure, unspecified ; N18.9 - Chronic kidney disease, unspecified; N18.9 - Chronic kidney disease, unspecified (3) Hypoxia Code(s): R09.02 - HYPOXEMIA (4) Atrial fibrillation Code(s): I48.91 - UNSPECIFIED ATRIAL FIBRILLATION Qualifiers: Atrial fibrillation type: paroxysmal Qualified Code(s): I48.0 - Paroxysmal atrial fibrillation (5) Congestive heart failure Code(s): I50.9 - HEART FAILURE, UNSPECIFIED Qualifiers: Qualified Code(s): I50.22 - Chronic systolic (congestive) heart failure (6) Coronary artery disease Code(s): I25.10 - ATHSCL HEART DISEASE OF [place] CORONARY ARTERY W/O ANG PCTRS Qualifiers: Coronary Disease-Associated Artery/Lesion type: [place] coronary artery [place] vs. transplanted heart: [place] heart Associated angina: without angina pectoris (7) Diabetes Code(s): E11.9 - TYPE 2 DIABETES MELLITUS WITHOUT COMPLICATIONS Qualifiers: Diabetes mellitus type: type 2 Diabetes mellitus complication status: with circulatory complication (8) NSTEMI (non-ST elevated myocardial infarction) Code(s): I21.4 - NON-ST ELEVATION (NSTEMI) MYOCARDIAL INFARCTION (9) Peripheral vascular disease Code(s): I73.9 - PERIPHERAL VASCULAR DISEASE, UNSPECIFIED Assessment/Plan IMP DYSPNEA SECONDARY TO DECOMPENSATED CHF IMPROVED ASHD S/P STENT DIASTOLIC HF R PLEURAL EFFUSION PULMONARY HTN AFIB S/P PPM PULMONARY HTN DM ACUTE ON CHRONIC KIDNEY DISEASE AAA S/P REPAIR PVD HTN PLAN LASIX O2 DAILY WTS PLAVIX MONITOR LYTES,RENAL FUNCTION CHEST X-RAY AM DR SO Problem List - Problems (1) Acute CHF Code(s): I50.9 - HEART FAILURE, UNSPECIFIED Qualifiers: Heart failure type: unspecified Qualified Code(s): I50.9 - Heart failure, unspecified (2) Acute on chronic renal failure Code(s): N17.9 - ACUTE KIDNEY FAILURE, UNSPECIFIED; N18.9 - CHRONIC KIDNEY DISEASE, UNSPECIFIED Qualifiers: Acute renal failure type: unspecified Chronic kidney disease stage: unspecified stage Qualified Code(s): N17.9 - Acute kidney failure, unspecified ; N18.9 - Chronic kidney disease, unspecified; N18.9 - Chronic kidney disease, unspecified (3) Hypoxia Code(s): R09.02 - HYPOXEMIA (4) Atrial fibrillation Code(s): I48.91 - UNSPECIFIED ATRIAL FIBRILLATION Qualifiers: Atrial fibrillation type: paroxysmal Qualified Code(s): I48.0 - Paroxysmal atrial fibrillation (5) Congestive heart failure Code(s): I50.9 - HEART FAILURE, UNSPECIFIED Qualifiers: Qualified Code(s): I50.22 - Chronic systolic (congestive) heart failure (6) Coronary artery disease Code(s): I25.10 - ATHSCL HEART DISEASE OF [place] CORONARY ARTERY W/O ANG PCTRS Qualifiers: Coronary Disease-Associated Artery/Lesion type: [place] coronary artery [place] vs. transplanted heart: [place] heart Associated angina: without angina pectoris (7) Diabetes Code(s): E11.9 - TYPE 2 DIABETES MELLITUS WITHOUT COMPLICATIONS Qualifiers: Diabetes mellitus type: type 2 Diabetes mellitus complication status: with circulatory complication (8) NSTEMI (non-ST elevated myocardial infarction) Code(s): I21.4 - NON-ST ELEVATION (NSTEMI) MYOCARDIAL INFARCTION (9) Peripheral vascular disease Code(s): I73.9 - PERIPHERAL VASCULAR DISEASE, UNSPECIFIED
[2017-11-25] MEDS: SODIUM BICARBONATE 650 MG TABLET PO SCH ×2 (10:15→22:43)
[2017-11-25] MEDS: CLOPIDOGREL BISULFATE 75 MG TABLET (FP) PO SCH (10:15)
[2017-11-25] MEDS: FUROSEMIDE 40 MG TABLET (FP) PO SCH (10:15)
--- NOTE | 2017-11-25 12:13 | PN ---
Progress Note, Physician History of Present Illness: comfortable no new issues looks good - Current Medication List Current Medications: Active Medications Atorvastatin Calcium (Lipitor -) 40 mg PO [facility] Last Admin: 11/24/17 21:29 Dose: 40 mg Clopidogrel Bisulfate (Plavix -) 75 mg PO DAILY [facility] Last Admin: 11/25/17 10:15 Dose: 75 mg Furosemide (Lasix -) 80 mg PO DAILY [facility] Last Admin: 11/25/17 10:15 Dose: 80 mg Hydralazine HCl (Apresoline -) 20 mg PO TID [facility] Last Admin: 11/25/17 06:14 Dose: 20 mg Piperacillin Sod/Tazobactam (Sod 2.25 gm/ Dextrose) 50 mls @ 100 mls/hr IVPB Q8H-IV [facility] PRN Reason: Protocol Stop: 11/27/17 10:29 Last Admin: 11/25/17 10:16 Dose: 100 mls/hr Insulin Aspart (Novolog Vial Sliding Scale -) 1 vial SQ [facility] PRN Reason: Protocol Last Admin: 11/24/17 21:30 Dose: 3 unit Insulin Aspart (Novolog Vial Sliding Scale -) 1 vial SQ TIDAC [facility] PRN Reason: Protocol Last Admin: 11/25/17 11:47 Dose: 3 units Insulin Detemir (Levemir Vial) 5 units SQ [facility] Metoprolol Succinate (Toprol Xl -) 50 mg PO DAILY [facility] Last Admin: 11/25/17 10:15 Dose: 50 mg Sodium Bicarbonate (Sodium Bicarbonate -) 650 mg PO BID [facility] Last Admin: 11/25/17 10:15 Dose: 650 mg Tamsulosin HCl (Flomax -) 0.4 mg PO [facility] Last Admin: 11/24/17 21:29 Dose: 0.4 mg - Objective Vital Signs: Vital Signs Temperature 98.4 F 11/25/17 08:44 Pulse Rate 83 11/25/17 08:44 Respiratory Rate 2 L 11/25/17 09:00 Blood Pressure 146/75 11/25/17 08:44 O2 Sat by Pulse Oximetry (%) 97 11/25/17 09:00 Constitutional: Yes: No Distress, Calm Cardiovascular: Yes: S1, S2 Respiratory: Yes: Regular, CTA Bilaterally Gastrointestinal: Yes: Normal Bowel Sounds, Soft Musculoskeletal: Yes: WNL Extremities: Yes: WNL Neurological: Yes: Alert, Oriented Psychiatric: Yes: Alert, Oriented Labs: CBC, BMP 11/25/17 05:00 11/25/17 05:00 INR, PTT INR 0.99 (0.82-1.09) 11/16/17 16:00 Assessment/Plan Problem List - Problems (1) Acute CHF Code(s): I50.9 - HEART FAILURE, UNSPECIFIED Qualifiers: Heart failure type: diastolic Qualified Code(s): I50.31 - Acute diastolic ( congestive) heart failure (2) Acute on chronic renal failure Code(s): N17.9 - ACUTE KIDNEY FAILURE, UNSPECIFIED; N18.9 - CHRONIC KIDNEY DISEASE, UNSPECIFIED Qualifiers: Acute renal failure type: unspecified Chronic kidney disease stage: unspecified stage Qualified Code(s): N17.9 - Acute kidney failure, unspecified ; N18.9 - Chronic kidney disease, unspecified; N18.9 - Chronic kidney disease, unspecified (3) Hypoxia Code(s): R09.02 - HYPOXEMIA (4) Atrial fibrillation Code(s): I48.91 - UNSPECIFIED ATRIAL FIBRILLATION Qualifiers: Atrial fibrillation type: paroxysmal Qualified Code(s): I48.0 - Paroxysmal atrial fibrillation (5) Diabetes Code(s): E11.9 - TYPE 2 DIABETES MELLITUS WITHOUT COMPLICATIONS Qualifiers: Diabetes mellitus type: type 2 Diabetes mellitus complication status: with circulatory complication (6) Hypertension Code(s): I10 - ESSENTIAL (PRIMARY) HYPERTENSION Qualifiers: Hypertension type: essential hypertension Qualified Code(s): I10 - Essential (primary) hypertension (7) UTI complicated plan finish abx course continue current mgmt rest as per primary team finish 7 day course
--- NOTE | 2017-11-25 12:58 | PN ---
Progress Note (short form) - Note Progress Note: Renal follow up for KELLI on CKD Pt seen and examined at the bedside no acute complaints reports urinating but only a little at a time no flank pain, bladder pain no sob, chest pain Vital Signs Temperature 98.4 F 11/25/17 08:44 Pulse Rate 83 11/25/17 08:44 Respiratory Rate 2 L 11/25/17 09:00 Blood Pressure 146/75 11/25/17 08:44 O2 Sat by Pulse Oximetry (%) 97 11/25/17 09:00 Intake & Output 11/22/17 11/23/17 11/24/17 11/25/17 23:59 23:59 23:59 23:59 Intake Total 240 458 9262 180 Output Total 178 850 4915 400 Balance -100 300 -250 -220 Weight 69.967 kg 72.121 kg 71.384 kg 74.026 kg NAD, awake and alert RRR Dec BS, no rales Trace LE edema CBC, BMP 11/25/17 05:00 11/25/17 05:00 Current Medications Atorvastatin Calcium (Lipitor -) 40 mg PO HS [facility] Last Admin: 11/24/17 21:29 Dose: 40 mg Clopidogrel Bisulfate (Plavix -) 75 mg PO DAILY [facility] Last Admin: 11/25/17 10:15 Dose: 75 mg Furosemide (Lasix -) 80 mg PO DAILY [facility] Last Admin: 11/25/17 10:15 Dose: 80 mg Hydralazine HCl (Apresoline -) 20 mg PO TID [facility] Last Admin: 11/25/17 06:14 Dose: 20 mg Piperacillin Sod/Tazobactam (Sod 2.25 gm/ Dextrose) 50 mls @ 100 mls/hr IVPB Q8H-IV [facility] PRN Reason: Protocol Stop: 11/27/17 10:29 Last Admin: 11/25/17 10:16 Dose: 100 mls/hr Insulin Aspart (Novolog Vial Sliding Scale -) 1 vial SQ HS [facility] PRN Reason: Protocol Last Admin: 11/24/17 21:30 Dose: 3 unit Insulin Aspart (Novolog Vial Sliding Scale -) 1 vial SQ TIDAC [facility] PRN Reason: Protocol Last Admin: 11/25/17 11:47 Dose: 3 units Insulin Detemir (Levemir Vial) 5 units SQ HS [facility] Metoprolol Succinate (Toprol Xl -) 50 mg PO DAILY [facility] Last Admin: 11/25/17 10:15 Dose: 50 mg Sodium Bicarbonate (Sodium Bicarbonate -) 650 mg PO BID [facility] Last Admin: 11/25/17 10:15 Dose: 650 mg Tamsulosin HCl (Flomax -) 0.4 mg PO HS [facility] Last Admin: 11/24/17 21:29 Dose: 0.4 mg 67 year old gentleman with PMhx of CKD Stage 3, CHF, AFib, Hypertension who presented with weakness and sob and found to have CHF exacerbation with KELLI #KELLI on CKD vs. progressive CKD #Nephrotic Proteinuira #SOB secondary to CHF exacerbation #Unilateral Pleural effusion #Mixed Respiratory and Metabolic acidosis #Hypernatremia #Hyperkalemia #UTI Cr up to 4.2, not a overt decreae in renal function but not improving to levels of initial admission pt appears evolemic at the present time on dose of Lasix Check bladder scan to r/o urinary retention Cardiology follow up continue flomax (may need to increase dose if pt has retention) serologic work up for GN/Proteinuria negative Beau Iraheta DO
--- NOTE | 2017-11-25 17:12 | PN ---
Progress Note (short form) - Note Progress Note: cc: sob S: no sob cp, palps, dizziness. no orthopnea Current Medications Atorvastatin Calcium (Lipitor -) 40 mg PO HS [facility] Last Admin: 11/24/17 21:29 Dose: 40 mg Clopidogrel Bisulfate (Plavix -) 75 mg PO DAILY [facility] Last Admin: 11/25/17 10:15 Dose: 75 mg Furosemide (Lasix -) 80 mg PO DAILY [facility] Last Admin: 11/25/17 10:15 Dose: 80 mg Hydralazine HCl (Apresoline -) 20 mg PO TID [facility] Last Admin: 11/25/17 14:37 Dose: 20 mg Piperacillin Sod/Tazobactam (Sod 2.25 gm/ Dextrose) 50 mls @ 100 mls/hr IVPB Q8H-IV [facility] PRN Reason: Protocol Stop: 11/27/17 10:29 Last Admin: 11/25/17 10:16 Dose: 100 mls/hr Insulin Aspart (Novolog Vial Sliding Scale -) 1 vial SQ [facility] PRN Reason: Protocol Last Admin: 11/24/17 21:30 Dose: 3 unit Insulin Aspart (Novolog Vial Sliding Scale -) 1 vial SQ TIDAC [facility] PRN Reason: Protocol Last Admin: 11/25/17 11:47 Dose: 3 units Insulin Detemir (Levemir Vial) 5 units SQ [facility] Metoprolol Succinate (Toprol Xl -) 50 mg PO DAILY [facility] Last Admin: 11/25/17 10:15 Dose: 50 mg Sodium Bicarbonate (Sodium Bicarbonate -) 650 mg PO BID [facility] Last Admin: 11/25/17 10:15 Dose: 650 mg Tamsulosin HCl (Flomax -) 0.4 mg PO [facility] Last Admin: 11/24/17 21:29 Dose: 0.4 mg Vital Signs - 24 hr 11/24/17 11/24/17 11/24/17 17:00 20:21 20:36 Temperature 97.2 F L 97.6 F Pulse Rate 70 69 Respiratory 20 20 Rate Blood Pressure 173/82 156/81 O2 Sat by Pulse 97 Oximetry (%) 11/25/17 11/25/17 11/25/17 02:03 05:30 08:44 Temperature 98.0 F 98.8 F 98.4 F Pulse Rate 76 81 83 Respiratory 20 20 2 L Rate Blood Pressure 138/60 137/58 146/75 O2 Sat by Pulse Oximetry (%) 11/25/17 11/25/17 09:00 14:00 Temperature 97.6 F Pulse Rate 94 H Respiratory 2 L 20 Rate Blood Pressure 146/71 O2 Sat by Pulse 97 Oximetry (%) Intake & Output 11/23/17 11/24/17 11/25/17 11/26/17 07:59 07:59 07:59 07:59 Intake Total 755 519 1156 60 Output Total 550 1400 300 Balance 200 220 -390 -240 Weight 159 lb 157 lb 6 oz 163 lb 3.2 oz nad, calm jvd, ? mild elevation. rrr s1s2 (faint) no mrg bibasilar rales. nl eff aaox3 trace Le edema with venous stasis changes. no c/c abd nt nd pos bs diminished dp pt no jaundice diaphoresis CBC, BMP 11/25/17 05:00 11/25/17 05:00 ecg vpaced, underlying appears aflutter tele v-paced echo 10/2017: moderate concentric lvh. 1+ lve. mod-sev decreased LV sys fn, global. nl RV size. mod decreased RV sys fn. mod mitra. mod-sev mac. mod mr. mod-sev tr. rvsp > 60. trivial effusion. echo 11/2016: low nl lvef, mild lvh, nl rv, mitra, mod mr/tr, mod phtn echo 02/2015: mild lv dil, nl lvef, basal post-lat HK, nl rv size/fcn, severe biatrial dil, sev mr, sev tr, sev phtn, mod pr echo 11/2014: nl lv/rv, mod-sev mr, sev tr, sev phtn cxr: chf, right eff cxr: increased size of right effusion/right infiltrate. renal u/s: chronic medical renal disease. trace free fluid in upper abdomen. bilateral pleural effusions. see emr for detailed findings. mibi 11/2016: no ischemia a/p: 67 m hx cad s/p nstemi/pci (11/2014 pt had chf with +trops [place] [facility] [place] GIOVANNI to [facility]AD, residual dLCx and ramus 50-60% both), dchf, htn, hld, dm, ckd, afib on coumadin, cva, ppm (SensingStripronik 05/2012), remote AAA repair, pad s/p left fem stent 2016 and left toe amp here with sob. sob, acute diastolic chf, New systolic cardiomyopathy: - echo here shows new systolic cardiomyopathy. will need to consider stress vs. cath once euvolemic (inpatient vs. outpatient) pending course of KELLI/CKD. - 11/18: net even thus far today on daily iv lasix. worsened effusion on cxr today. will uptitrate lasix to bid dosing. starting afterload reduction with hydralazine 10 tid. - 11/19: further uptitrate lasix to 80 mg bid. extra dose of 80 mg tonight. Uptitrate afterload reduction. -11/20: cont current iv lasix - 11/21: renal function worse. per renal hold lasix. -11/22: remains off lasix. cr similar to yesterday. resume maintenance lasix when possible. renal following. -11/23: will start maintenance lasix 80 po qd tomorrow -11/24: cont po lasix, ok for torsemide if renal prefers - 11/25: renal function stable/slightly worse on po lasix, con't to monitor. will con't to uptitrate afterload reduction, increase hydral, add isordil. check lft's to assess for hepatic congestion. -no signs acs kelli on ckd: -cr stable -renal following cad/pci: -stable, no cp/angina/acs -preserved lvef echo 2017 and no ischemia on 2017 mibi, but with known cad/ residual disease now with new cardiomypathy. ischemic eval as mentioned above. -cont home bb, statin, plavix htn: -cont bb, hydral hld: -cont statin afib,aflutter,atach: -rate controlled as pt has complete heart block with ppm -Has hx of cva and was on AC and dapt previously before a prior GIB, and aortoenteric fistula. was followed by vascular at [facility], now by Dr. Ren. DAPT was deemed safe to resume in 2015 after LE stent. For now, cont plavix monotherapy. ppm (biotronik for CHB): -Normal fcn on recent office check, next routine check planned 11/2017 remote aaa repair/pad s/p multiple interventions and toe amputations : -stable, continue bp control. plavix, statin
[2017-11-25] MEDS ORDERED: INSULIN (NOVOLOG) ASPART 100 UNITS/ML 10ML VIAL ONE (17:27)
[2017-11-25] MEDS: ISOSORBIDE DINITRATE 10 MG TABLET (FP) PO SCH (17:28)
[2017-11-25] MEDS ORDERED: INSULIN (LEVEMIR) 100 UNITS/ML UNITS SQ SCH (22:00)
[2017-11-25] MEDS: ATORVASTATIN CA 40 MG TABLET (FP) PO SCH (22:43)
[2017-11-25] MEDS: TAMSULOSIN HCL 0.4 MG CAP.ER.24H (FP) PO SCH (22:43)
[2017-11-26] MEDS ORDERED: DEXTROSE 5%-WATER - 50 ML IVPB ONE ×3 (03:08→17:22)
[2017-11-26] MEDS ORDERED: PIPERACILLIN/TAZOBACTAM 2.25 GM VIAL IVPB ONE ×3 (03:08→17:22)
[2017-11-26] MEDS: PIPERACILLIN/TAZOB 2.25 GM 2.25 GM in DEXTROSE 5%-WATER - 50 ML IVPB SCH ×3 (03:12→17:23)
[2017-11-26] MEDS: hydrALAZINE HCL 10 MG TABLET PO SCH ×3 (06:21→21:18)
[2017-11-26] MEDS: INSULIN SLIDING SCALE (NOVOLOG) 1 VIAL SQ SCH ×4 (06:21→21:19)
[2017-11-26 07:57] LABS: ANION GAP 9 (8-16); BLOOD UREA NITROGEN 82 mg/dL (7-18); CHLORIDE 109 mmol/L (98-107); CO2 25 mmol/L (21-32); CREATININE 4.3 mg/dL (0.7-1.3); GLUCOSE,RANDOM 109 mg/dL (74-106); MAGNESIUM 2.2 mg/dL (1.8-2.4); PHOSPHOROUS 5.4 mg/dL (2.5-4.9); POTASSIUM 4.1 mmol/L (3.5-5.1); SODIUM 143 mmol/L (136-145)
[2017-11-26 08:03] LABS: CALCIUM 6.9 mg/dL (8.5-10.1)
[2017-11-26 09:42] LABS: ALBUMIN 2.3 g/dl (3.4-5.0); BILIRUBIN,DIRECT 0.2 mg/dL (0.0-0.2); BILIRUBIN,TOTAL 0.4 mg/dL (0.2-1.0); SGOT/AST 21 U/L (15-37); SGPT/ALT 41 U/L (12-78); TOT PROT 5.3 g/dl (6.4-8.2)
[2017-11-26 09:43] LABS: ALK PHOS 127 U/L (45-117)
[2017-11-26] MEDS: ISOSORBIDE DINITRATE 10 MG TABLET (FP) PO SCH ×3 (10:07→17:23)
[2017-11-26] MEDS: CLOPIDOGREL BISULFATE 75 MG TABLET (FP) PO SCH (10:07)
[2017-11-26] MEDS: FUROSEMIDE 40 MG TABLET (FP) PO SCH (10:08)
[2017-11-26] MEDS: SODIUM BICARBONATE 650 MG TABLET PO SCH ×2 (10:08→21:18)
--- NOTE | 2017-11-26 10:31 | PN ---
Progress Note, Physician History of Present Illness: pulmonary alert,nad,-resp distress - Current Medication List Current Medications: Active Medications Atorvastatin Calcium (Lipitor -) 40 mg PO HS [facility] Last Admin: 11/25/17 22:43 Dose: 40 mg Clopidogrel Bisulfate (Plavix -) 75 mg PO DAILY [facility] Last Admin: 11/26/17 10:07 Dose: 75 mg Furosemide (Lasix -) 80 mg PO DAILY [facility] Last Admin: 11/26/17 10:08 Dose: 80 mg Hydralazine HCl (Apresoline -) 30 mg PO TID [facility] Last Admin: 11/26/17 06:21 Dose: 30 mg Piperacillin Sod/Tazobactam (Sod 2.25 gm/ Dextrose) 50 mls @ 100 mls/hr IVPB Q8H-IV [facility] PRN Reason: Protocol Stop: 11/27/17 10:29 Last Admin: 11/26/17 10:08 Dose: 100 mls/hr Insulin Aspart (Novolog Vial Sliding Scale -) 1 vial SQ HS [facility] PRN Reason: Protocol Last Admin: 11/25/17 22:43 Dose: 3 unit Insulin Aspart (Novolog Vial Sliding Scale -) 1 vial SQ TIDAC [facility] PRN Reason: Protocol Last Admin: 11/26/17 06:21 Dose: Not Given Insulin Detemir (Levemir Vial) 5 units SQ [facility] Last Admin: 11/25/17 22:43 Dose: 5 units Isosorbide Dinitrate (Isordil -) 10 mg PO TIDISORDIL [facility] Last Admin: 11/26/17 10:07 Dose: 10 mg Metoprolol Succinate (Toprol Xl -) 50 mg PO DAILY [facility] Last Admin: 11/26/17 10:07 Dose: 50 mg Sodium Bicarbonate (Sodium Bicarbonate -) 650 mg PO BID [facility] Last Admin: 11/26/17 10:08 Dose: 650 mg Tamsulosin HCl (Flomax -) 0.4 mg PO HS [facility] Last Admin: 11/25/17 22:43 Dose: 0.4 mg - Objective Vital Signs: Vital Signs Temperature 97.5 F L 11/26/17 06:00 Pulse Rate 75 11/26/17 06:00 Respiratory Rate 20 11/26/17 06:00 Blood Pressure 134/62 11/26/17 06:00 O2 Sat by Pulse Oximetry (%) 96 11/25/17 21:00 Constitutional: Yes: Well Nourished, Calm Eyes: Yes: WNL HENT: Yes: WNL Neck: Yes: WNL Cardiovascular: Yes: Pulse Irregular, S1, S2 Respiratory: Yes: CTA Bilaterally Gastrointestinal: Yes: Normal Bowel Sounds, Soft Extremities: Yes: WNL Edema: No Labs: CBC, BMP 11/25/17 05:00 11/26/17 06:00 INR, PTT INR 0.99 (0.82-1.09) 11/16/17 16:00 Problem List - Problems (1) Acute CHF Code(s): I50.9 - HEART FAILURE, UNSPECIFIED Qualifiers: Heart failure type: diastolic Qualified Code(s): I50.31 - Acute diastolic ( congestive) heart failure (2) Acute on chronic renal failure Code(s): N17.9 - ACUTE KIDNEY FAILURE, UNSPECIFIED; N18.9 - CHRONIC KIDNEY DISEASE, UNSPECIFIED Qualifiers: Acute renal failure type: unspecified Chronic kidney disease stage: unspecified stage Qualified Code(s): N17.9 - Acute kidney failure, unspecified ; N18.9 - Chronic kidney disease, unspecified; N18.9 - Chronic kidney disease, unspecified (3) Hypoxia Code(s): R09.02 - HYPOXEMIA (4) Atrial fibrillation Code(s): I48.91 - UNSPECIFIED ATRIAL FIBRILLATION Qualifiers: Atrial fibrillation type: paroxysmal Qualified Code(s): I48.0 - Paroxysmal atrial fibrillation (5) Congestive heart failure Code(s): I50.9 - HEART FAILURE, UNSPECIFIED Qualifiers: Qualified Code(s): I50.22 - Chronic systolic (congestive) heart failure (6) Coronary artery disease Code(s): I25.10 - ATHSCL HEART DISEASE OF [place] CORONARY ARTERY W/O ANG PCTRS Qualifiers: Coronary Disease-Associated Artery/Lesion type: [place] coronary artery [place] vs. transplanted heart: [place] heart Associated angina: without angina pectoris (7) Diabetes Code(s): E11.9 - TYPE 2 DIABETES MELLITUS WITHOUT COMPLICATIONS Qualifiers: Diabetes mellitus type: type 2 Diabetes mellitus complication status: with circulatory complication (8) NSTEMI (non-ST elevated myocardial infarction) Code(s): I21.4 - NON-ST ELEVATION (NSTEMI) MYOCARDIAL INFARCTION (9) Peripheral vascular disease Code(s): I73.9 - PERIPHERAL VASCULAR DISEASE, UNSPECIFIED Assessment/Plan IMP DYSPNEA SECONDARY TO DECOMPENSATED CHF IMPROVED ASHD S/P STENT DIASTOLIC HF R PLEURAL EFFUSION PULMONARY HTN AFIB S/P PPM PULMONARY HTN DM ACUTE ON CHRONIC KIDNEY DISEASE AAA S/P REPAIR PVD HTN PLAN LASIX O2 DAILY WTS PLAVIX MONITOR LYTES,RENAL FUNCTION CHEST CT DR SO Problem List - Problems (1) Acute CHF Code(s): I50.9 - HEART FAILURE, UNSPECIFIED Qualifiers: Heart failure type: unspecified Qualified Code(s): I50.9 - Heart failure, unspecified (2) Acute on chronic renal failure Code(s): N17.9 - ACUTE KIDNEY FAILURE, UNSPECIFIED; N18.9 - CHRONIC KIDNEY DISEASE, UNSPECIFIED Qualifiers: Acute renal failure type: unspecified Chronic kidney disease stage: unspecified stage Qualified Code(s): N17.9 - Acute kidney failure, unspecified ; N18.9 - Chronic kidney disease, unspecified; N18.9 - Chronic kidney disease, unspecified (3) Hypoxia Code(s): R09.02 - HYPOXEMIA (4) Atrial fibrillation Code(s): I48.91 - UNSPECIFIED ATRIAL FIBRILLATION Qualifiers: Atrial fibrillation type: paroxysmal Qualified Code(s): I48.0 - Paroxysmal atrial fibrillation (5) Congestive heart failure Code(s): I50.9 - HEART FAILURE, UNSPECIFIED Qualifiers: Qualified Code(s): I50.22 - Chronic systolic (congestive) heart failure (6) Coronary artery disease Code(s): I25.10 - ATHSCL HEART DISEASE OF [place] CORONARY ARTERY W/O ANG PCTRS Qualifiers: Coronary Disease-Associated Artery/Lesion type: [place] coronary artery [place] vs. transplanted heart: [place] heart Associated angina: without angina pectoris (7) Diabetes Code(s): E11.9 - TYPE 2 DIABETES MELLITUS WITHOUT COMPLICATIONS Qualifiers: Diabetes mellitus type: type 2 Diabetes mellitus complication status: with circulatory complication (8) NSTEMI (non-ST elevated myocardial infarction) Code(s): I21.4 - NON-ST ELEVATION (NSTEMI) MYOCARDIAL INFARCTION (9) Peripheral vascular disease Code(s): I73.9 - PERIPHERAL VASCULAR DISEASE, UNSPECIFIED
--- NOTE | 2017-11-26 11:55 | PN ---
Progress Note (short form) - Note Progress Note: cc: sob S: no sob cp, palps, dizziness. no orthopnea Current Medications Generic Name Dose Route Start Last Admin Trade Name Connie PRN Reason Stop Dose Admin Atorvastatin Calcium 40 mg 11/17/17 22:00 11/25/17 22:43 Lipitor - PO 40 mg HS [facility] Administration Clopidogrel Bisulfate 75 mg 11/17/17 10:00 11/26/17 10:07 Plavix - PO 75 mg DAILY [facility] Administration Hydralazine HCl 30 mg 11/25/17 22:00 11/26/17 06:21 Apresoline - PO 30 mg TID [facility] Administration Piperacillin Sod/Tazobactam 50 mls @ 100 mls/hr 11/22/17 18:00 11/26/17 10:08 Sod 2.25 gm/ Dextrose IVPB 11/27/17 10:29 100 mls/hr Q8H-IV [facility] Administration Protocol Insulin Aspart 1 vial 11/16/17 22:00 11/25/17 22:43 Novolog Vial Sliding Scale - SQ 3 unit HS [facility] Administration Protocol Insulin Aspart 1 vial 11/17/17 07:00 11/26/17 06:21 Novolog Vial Sliding Scale - SQ Not Given TIDAC [facility] Protocol Insulin Detemir 5 units 11/25/17 22:00 11/25/17 22:43 Levemir Vial SQ 5 units HS [facility] Administration Isosorbide Dinitrate 10 mg 11/25/17 18:00 11/26/17 10:07 Isordil - PO 10 mg TIDISORDIL [facility] Administration Metoprolol Succinate 50 mg 11/17/17 10:00 11/26/17 10:07 Toprol Xl - PO 50 mg DAILY [facility] Administration Sodium Bicarbonate 650 mg 11/17/17 22:00 11/26/17 10:08 Sodium Bicarbonate - PO 650 mg BID [facility] Administration Tamsulosin HCl 0.4 mg 11/16/17 22:00 11/25/17 22:43 Flomax - PO 0.4 mg HS [facility] Administration Vital Signs Period Temp Pulse Resp BP Sys/Lauren Pulse Ox Last 24 Hr 97.2 F-98.4 F 70-94 18-20 133-156/55-76 96-97 nad, calm rrr s1s2 no mrg cta bl nl eff aaox3 no le e/c/c abd nt nd pos bs no jaundice diaphoresis CBC, BMP 11/25/17 05:00 11/26/17 06:00 ecg vpaced, underlying appears aflutter tele ;v-paced echo 10/2017: moderate concentric lvh. 1+ lve. mod-sev decreased LV sys fn, global. nl RV size. mod decreased RV sys fn. mod mitra. mod-sev mac. mod mr. mod-sev tr. rvsp > 60. trivial effusion. echo 11/2016: low nl lvef, mild lvh, nl rv, mitra, mod mr/tr, mod phtn echo 02/2015: mild lv dil, nl lvef, basal post-lat HK, nl rv size/fcn, severe biatrial dil, sev mr, sev tr, sev phtn, mod pr echo 11/2014: nl lv/rv, mod-sev mr, sev tr, sev phtn cxr: chf, right eff cxr: increased size of right effusion/right infiltrate. renal u/s: chronic medical renal disease. trace free fluid in upper abdomen. bilateral pleural effusions. see emr for detailed findings. mibi 11/2016: no ischemia a/p: 67 m hx cad s/p nstemi/pci (11/2014 pt had chf with +trops so sent for cath [facility] and had rota and GIOVANNI to pLAD, residual dLCx and ramus 50-60% both), dchf, htn, hld, dm, ckd, afib on coumadin, cva, ppm (biotronik 05/2012), remote AAA repair, pad s/p left fem stent 2015 and left toe amp here with sob. sob, acute diastolic chf, New systolic cardiomyopathy: - echo here shows new systolic cardiomyopathy. will need to consider stress vs. cath once euvolemic (inpatient vs. outpatient) pending course of KELLI/CKD. - 11/18: net even thus far today on daily iv lasix. worsened effusion on cxr today. will uptitrate lasix to bid dosing. starting afterload reduction with hydralazine 10 tid. - 11/19: further uptitrate lasix to 80 mg bid. extra dose of 80 mg tonight. Uptitrate afterload reduction. -11/20: cont current iv lasix - 11/21: renal function worse. per renal hold lasix. -11/22: remains off lasix. cr similar to yesterday. resume maintenance lasix when possible. renal following. -11/23: will start maintenance lasix 80 po qd tomorrow -11/24: cont po lasix, ok for torsemide if renal prefers - 11/25: renal function stable/slightly worse on po lasix, con't to monitor. will con't to uptitrate afterload reduction, increase hydral, add isordil. -11/26: bun/cr continue to rise with lasix po 80 qd. already got todays dose. will hold for now and monitor trend. -no signs acs kelli on ckd: -as above -renal following cad/pci: -stable, no cp/angina/acs -preserved lvef echo 2017 and no ischemia on 2017 mibi, but with known cad/ residual disease now with new cardiomypathy. ischemic eval as mentioned above. -cont home bb, statin, plavix htn: -cont bb, hydral hld: -cont statin afib,aflutter,atach: -rate controlled as pt has complete heart block with ppm -Has hx of cva and was on AC and dapt previously before a prior GIB, and aortoenteric fistula. was followed by vascular at [facility], now by Dr. Ren. DAPT was deemed safe to resume in 2015 after LE stent. For now, cont plavix monotherapy. ppm (biotronik for CHB): -Normal fcn on recent office check, next routine check planned 11/2017 remote aaa repair/pad s/p multiple interventions and toe amputations : -stable, continue bp control. plavix, statin pna: -abx per ID
--- NOTE | 2017-11-26 13:40 | PN ---
Physical Exam: SUBJECTIVE: Patient seen and examined. Feels good, no chest pain. OBJECTIVE: Lasix stopped by cardiology for elevated bun/creat Patient tolerating room air Vital Signs Period Temp Pulse Resp BP Sys/Lauren Pulse Ox Last 24 Hr 97.2 F-98.4 F 70-94 18-20 133-156/55-76 96-97 GENERAL: The patient is awake, alert, and fully oriented, in no acute distress. HEAD: Normal with no signs of trauma. EYES: PERRL, extraocular movements intact, sclera anicteric, conjunctiva clear. No ptosis. ENT: Ears normal, nares patent, oropharynx clear without exudates, moist mucous membranes. NECK: Trachea midline, full range of motion, supple. LUNGS: Clear upper lobes bilaterally, left lower lobe clear to auscultation. 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 EXTREMITIES: 2+ pulses, warm, well-perfused, no edema. NEUROLOGICAL: Normal speech, gait not observed. PSYCH: Normal mood, normal affect. SKIN: Warm, dry, normal turgor, no rashes or lesions noted Laboratory Results - last 24 hr 11/25/17 11/25/17 11/26/17 17:04 22:40 06:00 Sodium 143 Potassium 4.1 Chloride 109 H Carbon Dioxide 25 Anion Gap 9 BUN 82 H Creatinine 4.3 H POC Glucometer 274 293 Random Glucose 109 H D Calcium 6.9 L* Phosphorus 5.4 H Magnesium 2.2 Total Bilirubin 0.4 D Direct Bilirubin 0.2 D AST 21 D ALT 41 D Alkaline Phosphatase 127 H D Total Protein 5.3 L Albumin 2.3 L 11/26/17 11/26/17 11/26/17 06:00 06:15 11:51 Sodium Potassium Chloride Carbon Dioxide Anion Gap BUN Creatinine POC Glucometer 120 213 Random Glucose Calcium Phosphorus Magnesium Total Bilirubin Cancelled Direct Bilirubin Cancelled AST Cancelled ALT Cancelled Alkaline Phosphatase Cancelled Total Protein Cancelled Albumin Cancelled Active Medications Generic Name Dose Route Start Last Admin Trade Name Freq PRN Reason Stop Dose Admin Atorvastatin Calcium 40 mg 11/17/17 22:00 11/25/17 22:43 Lipitor - PO 40 mg HS [facility] Administration Clopidogrel Bisulfate 75 mg 11/17/17 10:00 11/26/17 10:07 Plavix - PO 75 mg DAILY [facility] Administration Hydralazine HCl 30 mg 11/25/17 22:00 11/26/17 06:21 Apresoline - PO 30 mg TID [facility] Administration Piperacillin Sod/Tazobactam 50 mls @ 100 mls/hr 11/22/17 18:00 11/26/17 10:08 Sod 2.25 gm/ Dextrose IVPB 11/27/17 10:29 100 mls/hr Q8H-IV [facility] Administration Protocol Insulin Aspart 1 vial 11/16/17 22:00 11/25/17 22:43 Novolog Vial Sliding Scale - SQ 3 unit HS [facility] Administration Protocol Insulin Aspart 1 vial 11/17/17 07:00 11/26/17 13:37 Novolog Vial Sliding Scale - SQ Not Given TIDAC [facility] Protocol Insulin Detemir 5 units 11/25/17 22:00 11/25/17 22:43 Levemir Vial SQ 5 units HS [facility] Administration Isosorbide Dinitrate 10 mg 11/25/17 18:00 11/26/17 10:07 Isordil - PO 10 mg TIDISORDIL [facility] Administration Metoprolol Succinate 50 mg 11/17/17 10:00 11/26/17 10:07 Toprol Xl - PO 50 mg DAILY [facility] Administration Sodium Bicarbonate 650 mg 11/17/17 22:00 11/26/17 10:08 Sodium Bicarbonate - PO 650 mg BID [facility] Administration Tamsulosin HCl 0.4 mg 11/16/17 22:00 11/25/17 22:43 Flomax - PO 0.4 mg HS [facility] Administration ASSESSMENT/PLAN: Patient is a 67 year old male who presented to the ED on 11/16/2017 with KELLI and acute CHF. On exam, he is was sitting up in bed, tolerating room air, in no acute distress. Card Congestive Heart Failure, improving PO Lasix stopped for worsening CKD Monitor daily weights, intake and output Afib, on Plavix Further anticoag as per card, pt has hx of GIB as per previous notes cardiology following Hypertension, chronic On Toprol XL, hydralazine Monitor BP : UTI On Zosyn Renal KELLI on CKD Creat above pt baseline, Lasix stopped Monitor daily bun/creat Bladder scan to r/o retention On Flomax Renal following Endo Diabetes Levemir 5 units @ HS added Heme: Anemia, low stable monitor daily cbc Visit type - Emergency Visit Emergency Visit: Yes ED Registration Date: 11/16/17 Care time: The patient presented to the Emergency Department on the above date and was hospitalized for further evaluation of their emergent condition. - New Patient This patient is new to me today: Yes Date on this admission: 11/26/17 - Critical Care Critical Care patient: No - Discharge Referral Referred to [facility] Med [facility] No
--- NOTE | 2017-11-26 14:31 | PN ---
Progress Note, Physician History of Present Illness: clinically doing well no complaints - Current Medication List Current Medications: Active Medications Atorvastatin Calcium (Lipitor -) 40 mg PO HS [facility] Last Admin: 11/25/17 22:43 Dose: 40 mg Clopidogrel Bisulfate (Plavix -) 75 mg PO DAILY [facility] Last Admin: 11/26/17 10:07 Dose: 75 mg Hydralazine HCl (Apresoline -) 30 mg PO TID [facility] Last Admin: 11/26/17 13:40 Dose: 30 mg Piperacillin Sod/Tazobactam (Sod 2.25 gm/ Dextrose) 50 mls @ 100 mls/hr IVPB Q8H-IV [facility] PRN Reason: Protocol Stop: 11/27/17 10:29 Last Admin: 11/26/17 10:08 Dose: 100 mls/hr Insulin Aspart (Novolog Vial Sliding Scale -) 1 vial SQ [facility] PRN Reason: Protocol Last Admin: 11/25/17 22:43 Dose: 3 unit Insulin Aspart (Novolog Vial Sliding Scale -) 1 vial SQ TIDAC [facility] PRN Reason: Protocol Last Admin: 11/26/17 13:37 Dose: Not Given Insulin Detemir (Levemir Vial) 5 units SQ [facility] Last Admin: 11/25/17 22:43 Dose: 5 units Isosorbide Dinitrate (Isordil -) 10 mg PO TIDISORDIL [facility] Last Admin: 11/26/17 13:40 Dose: 10 mg Metoprolol Succinate (Toprol Xl -) 50 mg PO DAILY [facility] Last Admin: 11/26/17 10:07 Dose: 50 mg Sodium Bicarbonate (Sodium Bicarbonate -) 650 mg PO BID [facility] Last Admin: 11/26/17 10:08 Dose: 650 mg Tamsulosin HCl (Flomax -) 0.4 mg PO HS [facility] Last Admin: 11/25/17 22:43 Dose: 0.4 mg - Objective Vital Signs: Vital Signs Temperature 98.1 F 11/26/17 10:00 Pulse Rate 72 11/26/17 10:00 Respiratory Rate 18 11/26/17 10:00 Blood Pressure 137/63 11/26/17 10:00 O2 Sat by Pulse Oximetry (%) 97 11/26/17 09:00 Constitutional: Yes: No Distress, Calm Cardiovascular: Yes: S1, S2 Respiratory: Yes: Regular, Poor Air Entry Gastrointestinal: Yes: Normal Bowel Sounds, Soft Extremities: Yes: WNL Neurological: Yes: Alert, Oriented Psychiatric: Yes: Alert, Oriented Labs: CBC, BMP 11/25/17 05:00 11/26/17 06:00 INR, PTT INR 0.99 (0.82-1.09) 11/16/17 16:00 Assessment/Plan Problem List - Problems (1) Acute CHF Code(s): I50.9 - HEART FAILURE, UNSPECIFIED Qualifiers: Heart failure type: diastolic Qualified Code(s): I50.31 - Acute diastolic ( congestive) heart failure (2) Acute on chronic renal failure Code(s): N17.9 - ACUTE KIDNEY FAILURE, UNSPECIFIED; N18.9 - CHRONIC KIDNEY DISEASE, UNSPECIFIED Qualifiers: Acute renal failure type: unspecified Chronic kidney disease stage: unspecified stage Qualified Code(s): N17.9 - Acute kidney failure, unspecified ; N18.9 - Chronic kidney disease, unspecified; N18.9 - Chronic kidney disease, unspecified (3) Hypoxia Code(s): R09.02 - HYPOXEMIA (4) Atrial fibrillation Code(s): I48.91 - UNSPECIFIED ATRIAL FIBRILLATION Qualifiers: Atrial fibrillation type: paroxysmal Qualified Code(s): I48.0 - Paroxysmal atrial fibrillation (5) Diabetes Code(s): E11.9 - TYPE 2 DIABETES MELLITUS WITHOUT COMPLICATIONS Qualifiers: Diabetes mellitus type: type 2 Diabetes mellitus complication status: with circulatory complication (6) Hypertension Code(s): I10 - ESSENTIAL (PRIMARY) HYPERTENSION Qualifiers: Hypertension type: essential hypertension Qualified Code(s): I10 - Essential (primary) hypertension (7) UTI complicated plan finish abx course continue current mgmt rest as per primary team stop abx after today dose
[2017-11-26] MEDS: TAMSULOSIN HCL 0.4 MG CAP.ER.24H (FP) PO SCH (21:18)
[2017-11-26] MEDS: ATORVASTATIN CA 40 MG TABLET (FP) PO SCH (21:18)
[2017-11-26] MEDS: INSULIN (LEVEMIR) 100 UNITS/ML UNITS SQ SCH (21:39)
[2017-11-27] MEDS ORDERED: DEXTROSE 5%-WATER - 50 ML IVPB ONE ×2 (01:10→09:36)
[2017-11-27] MEDS ORDERED: PIPERACILLIN/TAZOBACTAM 2.25 GM VIAL IVPB ONE ×2 (01:10→09:35)
[2017-11-27] MEDS: PIPERACILLIN/TAZOB 2.25 GM 2.25 GM in DEXTROSE 5%-WATER - 50 ML IVPB SCH ×2 (01:20→09:39)
[2017-11-27] MEDS: hydrALAZINE HCL 10 MG TABLET PO SCH ×3 (05:58→21:46)
[2017-11-27] MEDS: INSULIN SLIDING SCALE (NOVOLOG) 1 VIAL SQ SCH ×4 (06:08→21:47)
[2017-11-27 06:27] LABS: BASO % 0.9 % (0-2.0); EOS % 1.3 % (0-4.5); HEMATOCRIT 22.7 % (35.4-49); HEMOGLOBIN 7.6 GM/dL (11.7-16.9); MCH 30.3 pg (25.7-33.7); MCHC 33.4 g/dl (32.0-35.9); MEAN CELL VOLUME 90.8 fl (80-96); MONO % 10.9 % (3.8-10.2); NEUT % 77.9 % (42.8-82.8); PLATELET COUNT 144 K/MM3 (134-434); RDW 22.1 % (11.9-15.9); WHITE BLOOD COUNT 6.8 K/mm3 (4.0-10.0)
[2017-11-27 06:36] LABS: ADD RBC MORPHOLOGY YES
[2017-11-27 06:43] LABS: ANISOCYTOSIS 3+
[2017-11-27 06:55] LABS: ALBUMIN 2.3 g/dl (3.4-5.0); ANION GAP 12 (8-16); BLOOD UREA NITROGEN 84 mg/dL (7-18); CALCIUM 7.3 mg/dL (8.5-10.1); CHLORIDE 110 mmol/L (98-107); CO2 23 mmol/L (21-32); GLUCOSE,RANDOM 143 mg/dL (74-106); POTASSIUM 4.2 mmol/L (3.5-5.1); SODIUM 145 mmol/L (136-145)
[2017-11-27 07:00] LABS: ALK PHOS 160 U/L (45-117); BILIRUBIN,TOTAL 0.4 mg/dL (0.2-1.0); CREATININE 4.4 mg/dL (0.7-1.3); SGOT/AST 38 U/L (15-37); SGPT/ALT 47 U/L (12-78); TOT PROT 5.5 g/dl (6.4-8.2)
[2017-11-27] MEDS: ISOSORBIDE DINITRATE 10 MG TABLET (FP) PO SCH ×3 (09:40→17:11)
[2017-11-27] MEDS: SODIUM BICARBONATE 650 MG TABLET PO SCH ×2 (09:40→21:46)
[2017-11-27] MEDS: CLOPIDOGREL BISULFATE 75 MG TABLET (FP) PO SCH (09:40)
--- NOTE | 2017-11-27 11:20 | PN ---
Progress Note, Physician History of Present Illness: pulmonary alert,comfortable,-resp distress - Current Medication List Current Medications: Active Medications Atorvastatin Calcium (Lipitor -) 40 mg PO [facility] Last Admin: 11/26/17 21:18 Dose: 40 mg Clopidogrel Bisulfate (Plavix -) 75 mg PO DAILY [facility] Last Admin: 11/27/17 09:40 Dose: 75 mg Hydralazine HCl (Apresoline -) 30 mg PO TID [facility] Last Admin: 11/27/17 05:58 Dose: 30 mg Insulin Aspart (Novolog Vial Sliding Scale -) 1 vial SQ HS [facility] PRN Reason: Protocol Last Admin: 11/26/17 21:19 Dose: 4 unit Insulin Aspart (Novolog Vial Sliding Scale -) 1 vial SQ TIDAC [facility] PRN Reason: Protocol Last Admin: 11/27/17 06:08 Dose: Not Given Insulin Detemir (Levemir Vial) 10 units SQ [facility] Last Admin: 11/26/17 21:39 Dose: 10 units Isosorbide Dinitrate (Isordil -) 10 mg PO TIDISORDIL [facility] Last Admin: 11/27/17 09:40 Dose: 10 mg Metoprolol Succinate (Toprol Xl -) 50 mg PO DAILY [facility] Last Admin: 11/27/17 09:40 Dose: 50 mg Sodium Bicarbonate (Sodium Bicarbonate -) 650 mg PO BID [facility] Last Admin: 11/27/17 09:40 Dose: 650 mg Tamsulosin HCl (Flomax -) 0.4 mg PO HS [facility] Last Admin: 11/26/17 21:18 Dose: 0.4 mg - Objective Vital Signs: Vital Signs Temperature 97.9 F 11/27/17 09:59 Pulse Rate 82 11/27/17 09:59 Respiratory Rate 18 11/27/17 09:59 Blood Pressure 133/74 11/27/17 09:59 O2 Sat by Pulse Oximetry (%) 97 11/27/17 09:00 Constitutional: Yes: Well Nourished, Calm Eyes: Yes: WNL HENT: Yes: WNL Neck: Yes: WNL Cardiovascular: Yes: Pulse Irregular, S1, S2 Respiratory: Yes: Diminished Gastrointestinal: Yes: Normal Bowel Sounds, Soft Extremities: Yes: WNL Edema: No Labs: CBC, BMP 11/27/17 06:00 11/27/17 06:00 INR, PTT INR 0.99 (0.82-1.09) 11/16/17 16:00 - ....Imaging X-ray: Image Reviewed (bilateral pleural effusions) Problem List - Problems (1) Acute CHF Code(s): I50.9 - HEART FAILURE, UNSPECIFIED Qualifiers: Heart failure type: diastolic Qualified Code(s): I50.31 - Acute diastolic ( congestive) heart failure (2) Acute on chronic renal failure Code(s): N17.9 - ACUTE KIDNEY FAILURE, UNSPECIFIED; N18.9 - CHRONIC KIDNEY DISEASE, UNSPECIFIED Qualifiers: Acute renal failure type: unspecified Chronic kidney disease stage: unspecified stage Qualified Code(s): N17.9 - Acute kidney failure, unspecified ; N18.9 - Chronic kidney disease, unspecified; N18.9 - Chronic kidney disease, unspecified (3) Hypoxia Code(s): R09.02 - HYPOXEMIA (4) Atrial fibrillation Code(s): I48.91 - UNSPECIFIED ATRIAL FIBRILLATION Qualifiers: Atrial fibrillation type: paroxysmal Qualified Code(s): I48.0 - Paroxysmal atrial fibrillation (5) Congestive heart failure Code(s): I50.9 - HEART FAILURE, UNSPECIFIED Qualifiers: Qualified Code(s): I50.22 - Chronic systolic (congestive) heart failure (6) Coronary artery disease Code(s): I25.10 - ATHSCL HEART DISEASE OF [place] CORONARY ARTERY W/O ANG PCTRS Qualifiers: Coronary Disease-Associated Artery/Lesion type: [place] coronary artery [place] vs. transplanted heart: [place] heart Associated angina: without angina pectoris (7) Diabetes Code(s): E11.9 - TYPE 2 DIABETES MELLITUS WITHOUT COMPLICATIONS Qualifiers: Diabetes mellitus type: type 2 Diabetes mellitus complication status: with circulatory complication (8) NSTEMI (non-ST elevated myocardial infarction) Code(s): I21.4 - NON-ST ELEVATION (NSTEMI) MYOCARDIAL INFARCTION (9) Peripheral vascular disease Code(s): I73.9 - PERIPHERAL VASCULAR DISEASE, UNSPECIFIED Assessment/Plan IMP DYSPNEA SECONDARY TO DECOMPENSATED CHF IMPROVED ASHD S/P STENT DIASTOLIC HF R PLEURAL EFFUSION PULMONARY HTN AFIB S/P PPM PULMONARY HTN DM ACUTE ON CHRONIC KIDNEY DISEASE AAA S/P REPAIR PVD HTN PLAN LASIX O2 DAILY WTS PLAVIX MONITOR LYTES,RENAL FUNCTION DR BRILL Problem List - Problems (1) Acute CHF Code(s): I50.9 - HEART FAILURE, UNSPECIFIED Qualifiers: Heart failure type: unspecified Qualified Code(s): I50.9 - Heart failure, unspecified (2) Acute on chronic renal failure Code(s): N17.9 - ACUTE KIDNEY FAILURE, UNSPECIFIED; N18.9 - CHRONIC KIDNEY DISEASE, UNSPECIFIED Qualifiers: Acute renal failure type: unspecified Chronic kidney disease stage: unspecified stage Qualified Code(s): N17.9 - Acute kidney failure, unspecified ; N18.9 - Chronic kidney disease, unspecified; N18.9 - Chronic kidney disease, unspecified (3) Hypoxia Code(s): R09.02 - HYPOXEMIA (4) Atrial fibrillation Code(s): I48.91 - UNSPECIFIED ATRIAL FIBRILLATION Qualifiers: Atrial fibrillation type: paroxysmal Qualified Code(s): I48.0 - Paroxysmal atrial fibrillation (5) Congestive heart failure Code(s): I50.9 - HEART FAILURE, UNSPECIFIED Qualifiers: Qualified Code(s): I50.22 - Chronic systolic (congestive) heart failure (6) Coronary artery disease Code(s): I25.10 - ATHSCL HEART DISEASE OF [place] CORONARY ARTERY W/O ANG PCTRS Qualifiers: Coronary Disease-Associated Artery/Lesion type: [place] coronary artery [place] vs. transplanted heart: [place] heart Associated angina: without angina pectoris (7) Diabetes Code(s): E11.9 - TYPE 2 DIABETES MELLITUS WITHOUT COMPLICATIONS Qualifiers: Diabetes mellitus type: type 2 Diabetes mellitus complication status: with circulatory complication (8) NSTEMI (non-ST elevated myocardial infarction) Code(s): I21.4 - NON-ST ELEVATION (NSTEMI) MYOCARDIAL INFARCTION (9) Peripheral vascular disease Code(s): I73.9 - PERIPHERAL VASCULAR DISEASE, UNSPECIFIED
--- NOTE | 2017-11-27 11:39 | PN ---
Progress Note, Physician Chief Complaint: sob History of Present Illness: remains sob walking in halls. legs not signif swollen no cp, palpitations, syncope ex cigs - Current Medication List Current Medications: Active Medications Atorvastatin Calcium (Lipitor -) 40 mg PO [facility] Last Admin: 11/26/17 21:18 Dose: 40 mg Clopidogrel Bisulfate (Plavix -) 75 mg PO DAILY [facility] Last Admin: 11/27/17 09:40 Dose: 75 mg Hydralazine HCl (Apresoline -) 30 mg PO TID [facility] Last Admin: 11/27/17 05:58 Dose: 30 mg Insulin Aspart (Novolog Vial Sliding Scale -) 1 vial SQ HS [facility] PRN Reason: Protocol Last Admin: 11/26/17 21:19 Dose: 4 unit Insulin Aspart (Novolog Vial Sliding Scale -) 1 vial SQ TIDAC [facility] PRN Reason: Protocol Last Admin: 11/27/17 06:08 Dose: Not Given Insulin Detemir (Levemir Vial) 10 units SQ [facility] Last Admin: 11/26/17 21:39 Dose: 10 units Isosorbide Dinitrate (Isordil -) 10 mg PO TIDISORDIL [facility] Last Admin: 11/27/17 09:40 Dose: 10 mg Metoprolol Succinate (Toprol Xl -) 50 mg PO DAILY [facility] Last Admin: 11/27/17 09:40 Dose: 50 mg Sodium Bicarbonate (Sodium Bicarbonate -) 650 mg PO BID [facility] Last Admin: 11/27/17 09:40 Dose: 650 mg Tamsulosin HCl (Flomax -) 0.4 mg PO HS [facility] Last Admin: 11/26/17 21:18 Dose: 0.4 mg - Objective Vital Signs: Vital Signs Temperature 97.9 F 11/27/17 09:59 Pulse Rate 82 11/27/17 09:59 Respiratory Rate 18 11/27/17 09:59 Blood Pressure 133/74 11/27/17 09:59 O2 Sat by Pulse Oximetry (%) 97 11/27/17 09:00 Constitutional: Yes: No Distress, Calm Eyes: No: Sclera Icterus HENT: No: Nasal Congestion Cardiovascular: Yes: Regular Rate and Rhythm, JVD (EJs ++), S1, S2, Other (PMI non diplaced). No: Gallop, Murmur Respiratory: Yes: Diminished (absent R base, decr'd L base). No: Accessory Muscle Use, Rales, Wheezes Gastrointestinal: Yes: Normal Bowel Sounds, Soft. No: Tenderness Musculoskeletal: Yes: Other (No kyphosis) Extremities: No: Cold Edema: Yes (1+ pretib) Integumentary: No: Jaundice Neurological: Yes: Alert, Oriented (x3) Psychiatric: No: Agitated Labs: CBC, BMP 11/27/17 06:00 11/27/17 06:00 INR, PTT INR 0.99 (0.82-1.09) 11/16/17 16:00 Assessment/Plan ecg vpaced, underlying appears aflutter echo 10/2017: moderate concentric lvh. 1+ lve. mod-sev decreased LV sys fn, global. nl RV size. mod decreased RV sys fn. mod mitra. mod-sev mac. mod mr. mod-sev tr. rvsp > 60. trivial effusion. echo 11/2016: low nl lvef, mild lvh, nl rv, mitra, mod mr/tr, mod phtn echo 02/2015: mild lv dil, nl lvef, basal post-lat HK, nl rv size/fcn, severe biatrial dil, sev mr, sev tr, sev phtn, mod pr echo 11/2014: nl lv/rv, mod-sev mr, sev tr, sev phtn renal u/s: chronic medical renal disease. trace free fluid in upper abdomen. bilateral pleural effusions. see emr for detailed findings. mibi 11/2016: no ischemia tele: v-paced (? underlying flutter), NSVT x7b CXR: persistent R > L effusion, pulm edema findings CT chest not reported--images reviewed with dr boyce: large R, small-moderate L pleural effusions, fluid in fissure areas of atx vs congestion vs infiltrate a/p: 67 m hx cad s/p nstemi/pci (11/2014 pt had chf with +trops so [place] [facility] [place] rota and GIOVANNI to pLAD, residual dLCx and ramus 50-60% both), dchf, htn, hld, dm, ckd, afib on coumadin, cva, ppm (biotronik 05/2012), remote AAA repair, pad s/p left fem stent 2015 and left toe amp here with sob. acute systolic chf: - echo here shows new systolic cardiomyopathy. will need to consider stress vs. cath once euvolemic (inpatient vs. 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 - ? etiology: r/o multivessel CAD as above. no tachyarrhythmia burden here. ? RV apical pacing cardiomyopathy--would have low threshold to consider PEDIATRIC AUDIOLOGIST upgrade. defer to dr liriano (outpt cardio) once HF is better optimized. -has been receiving doses of lasix 80 iv qd to bid here, with progressively worsening renal fxn, no improvement in radiographic findings. wt currently unchanged vs initial wt here (162). ? dry wt. -given CT chest appearance clearly c/w chf, pt needs inotrope-assisted diuresis to improve efficacy and improve renal perfusion. start milrinone. -albumin 2.3, doubt significant 3rd-spacing component -cont low dose nitrates as doing, for cardiorenal syndrome -rec increase metoprolol to target syst CHF doses later, once fluid status improved -hold JONO/ARB/spirono due to severe KELLI kelli on ckd: -sec to cardiorenal syndrome/low-output with renal hypoperfusion -chf optimization as above VTach: -K and Mg optimized (aggressive targets) -observe tele on milrinone -cont BB as doing cad/pci: -stable, no cp/angina/acs -preserved lvef echo 2017 and no ischemia on 2017 mibi, but with known cad/ residual disease now with new cardiomypathy. ischemic eval as mentioned above. -cont home bb, statin, plavix htn: -cont bb, hydral hld: -cont statin afib,aflutter,atach: -rate controlled as pt has complete heart block with ppm -Has hx of cva and was on AC and dapt previously before a prior GIB, and aortoenteric fistula. was followed by vascular at [facility], now by Dr. Ren. DAPT was deemed safe to resume in 2016 after LE stent. For now, cont plavix monotherapy. ppm (biotronik for CHB): -Normal fcn on recent office check, next routine check planned 11/2017 remote aaa repair/pad s/p multiple interventions and toe amputations : -stable, continue bp control. plavix, statin
[2017-11-27] MEDS ORDERED: FUROSEMIDE 100 MG/10 ML INJECTABLE VIAL IVPB ONE (11:47)
[2017-11-27] MEDS: MILRINONE 20MG/100ML IVPB - 20,000 MCG/100 ML ML IVPB SCH (12:54)
--- NOTE | 2017-11-27 13:14 | PN ---
Progress Note, Physician Chief Complaint: Mr Howard says he feels unchanged. No cp, sob, n/v. - Current Medication List Current Medications: Active Medications Atorvastatin Calcium (Lipitor -) 40 mg PO HS [facility] Last Admin: 11/26/17 21:18 Dose: 40 mg Clopidogrel Bisulfate (Plavix -) 75 mg PO DAILY [facility] Last Admin: 11/27/17 09:40 Dose: 75 mg Hydralazine HCl (Apresoline -) 30 mg PO TID [facility] Last Admin: 11/27/17 13:04 Dose: 30 mg Milrinone Lactate/Dextrose (Milrinone 20mg/100ml Ivpb -) 20,000 mcg in 100 mls @ 5.515 mls/hr IVPB TITR [facility] PRN Reason: 0.25 MCG/KG/MIN Last Admin: 11/27/17 12:54 Dose: 0.25 mcg/kg/min, 5.515 mls/hr Insulin Aspart (Novolog Vial Sliding Scale -) 1 vial SQ HS [facility] PRN Reason: Protocol Last Admin: 11/26/17 21:19 Dose: 4 unit Insulin Aspart (Novolog Vial Sliding Scale -) 1 vial SQ TIDAC [facility] PRN Reason: Protocol Last Admin: 11/27/17 12:37 Dose: Not Given Insulin Detemir (Levemir Vial) 10 units SQ [facility] Last Admin: 11/26/17 21:39 Dose: 10 units Isosorbide Dinitrate (Isordil -) 10 mg PO TIDISORDIL [facility] Last Admin: 11/27/17 12:55 Dose: 10 mg Metoprolol Succinate (Toprol Xl -) 50 mg PO DAILY [facility] Last Admin: 11/27/17 09:40 Dose: 50 mg Sodium Bicarbonate (Sodium Bicarbonate -) 650 mg PO BID [facility] Last Admin: 11/27/17 09:40 Dose: 650 mg Tamsulosin HCl (Flomax -) 0.4 mg PO HS [facility] Last Admin: 11/26/17 21:18 Dose: 0.4 mg - Objective Vital Signs: Vital Signs Temperature 36.6 C 11/27/17 09:59 Pulse Rate 82 11/27/17 09:59 Respiratory Rate 18 11/27/17 09:59 Blood Pressure 133/74 11/27/17 09:59 O2 Sat by Pulse Oximetry (%) 97 11/27/17 09:00 Constitutional: Yes: Well Nourished, No Distress, Calm Cardiovascular: Yes: Pulse Irregular. No: Tachycardia, Gallop, Murmur, Rub Respiratory: Yes: Regular, CTA Bilaterally. No: Rales, Rhonchi, Wheezes Gastrointestinal: Yes: Normal Bowel Sounds, Soft. No: Distention, Tenderness Extremities: Yes: WNL Edema: No Labs: CBC, BMP 11/27/17 06:00 11/27/17 06:00 INR, PTT INR 0.99 (0.82-1.09) 11/16/17 16:00 Problem List - Problems (1) Acute CHF Code(s): I50.9 - HEART FAILURE, UNSPECIFIED Qualifiers: Heart failure type: diastolic Qualified Code(s): I50.31 - Acute diastolic ( congestive) heart failure (2) Acute on chronic renal failure Code(s): N17.9 - ACUTE KIDNEY FAILURE, UNSPECIFIED; N18.9 - CHRONIC KIDNEY DISEASE, UNSPECIFIED Qualifiers: Acute renal failure type: unspecified Chronic kidney disease stage: unspecified stage Qualified Code(s): N17.9 - Acute kidney failure, unspecified ; N18.9 - Chronic kidney disease, unspecified; N18.9 - Chronic kidney disease, unspecified (3) Hypoxia Code(s): R09.02 - HYPOXEMIA (4) Atrial fibrillation Code(s): I48.91 - UNSPECIFIED ATRIAL FIBRILLATION Qualifiers: Atrial fibrillation type: paroxysmal Qualified Code(s): I48.0 - Paroxysmal atrial fibrillation (5) Diabetes Code(s): E11.9 - TYPE 2 DIABETES MELLIT[place] WITHOUT COMPLICATIONS Qualifiers: Diabetes mellitus type: type 2 Diabetes mellitus complication status: with circulatory complication (6) Hypertension Code(s): I10 - ESSENTIAL (PRIMARY) HYPERTENSION Qualifiers: Hypertension type: essential hypertension Qualified Code(s): I10 - Essential (primary) hypertension Assessment/Plan (1) Acute CHF Assessment/Plan: -cardiology note reviewed -given lasix 100mg IV x1 today -started on milrinone Code(s): I50.9 - HEART FAILURE, UNSPECIFIED Qualifiers: Heart failure type: diastolic Qualified Code(s): I50.31 - Acute diastolic ( congestive) heart failure (2) Acute on chronic renal failure Assessment/Plan: -stabilizing -no need for HD at this time -milrinone to optimize renal flow Code(s): N17.9 - ACUTE KIDNEY FAILURE, UNSPECIFIED; N18.9 - CHRONIC KIDNEY DISEASE, UNSPECIFIED Qualifiers: Acute renal failure type: unspecified Chronic kidney disease stage: unspecified stage Qualified Code(s): N17.9 - Acute kidney failure, unspecified ; N18.9 - Chronic kidney disease, unspecified; N18.9 - Chronic kidney disease, unspecified (3) Hypoxia Assessment/Plan: -resolved Code(s): R09.02 - HYPOXEMIA (4) Atrial fibrillation Assessment/Plan: -rate controlled -cardiology following -continue plavix, not on AC Code(s): I48.91 - UNSPECIFIED ATRIAL FIBRILLATION Qualifiers: Atrial fibrillation type: paroxysmal Qualified Code(s): I48.0 - Paroxysmal atrial fibrillation (5) Diabetes Assessment/Plan: -diabetic diet and SSI Code(s): E11.9 - TYPE 2 DIABETES [place]LL[place] WITHOUT COMPLICATIONS Qualifiers: Diabetes mellitus type: type 2 Diabetes mellitus complication status: with circulatory complication (6) Hypertension Assessment/Plan: -well controlled -continue toprol xl Code(s): I10 - ESSENTIAL (PRIMARY) HYPERTENSION Qualifiers: Hypertension type: essential hypertension Qualified Code(s): I10 - Essential (primary) hypertension (7) UTI -finished full course zosyn
--- NOTE | 2017-11-27 16:57 | PN ---
Progress Note, Physician History of Present Illness: clinically stable no new issues - Current Medication List Current Medications: Active Medications Atorvastatin Calcium (Lipitor -) 40 mg PO HS [facility] Last Admin: 11/26/17 21:18 Dose: 40 mg Clopidogrel Bisulfate (Plavix -) 75 mg PO DAILY [facility] Last Admin: 11/27/17 09:40 Dose: 75 mg Hydralazine HCl (Apresoline -) 30 mg PO TID [facility] Last Admin: 11/27/17 13:04 Dose: 30 mg Milrinone Lactate/Dextrose (Milrinone 20mg/100ml Ivpb -) 20,000 mcg in 100 mls @ 5.515 mls/hr IVPB TITR [facility] PRN Reason: 0.25 MCG/KG/MIN Last Admin: 11/27/17 12:54 Dose: 0.25 mcg/kg/min, 5.515 mls/hr Insulin Aspart (Novolog Vial Sliding Scale -) 1 vial SQ HS [facility] PRN Reason: Protocol Last Admin: 11/26/17 21:19 Dose: 4 unit Insulin Aspart (Novolog Vial Sliding Scale -) 1 vial SQ TIDAC [facility] PRN Reason: Protocol Last Admin: 11/27/17 12:37 Dose: Not Given Insulin Detemir (Levemir Vial) 10 units SQ HS [facility] Last Admin: 11/26/17 21:39 Dose: 10 units Isosorbide Dinitrate (Isordil -) 10 mg PO TIDISORDIL [facility] Last Admin: 11/27/17 12:55 Dose: 10 mg Metoprolol Succinate (Toprol Xl -) 50 mg PO DAILY [facility] Last Admin: 11/27/17 09:40 Dose: 50 mg Sodium Bicarbonate (Sodium Bicarbonate -) 650 mg PO BID [facility] Last Admin: 11/27/17 09:40 Dose: 650 mg Tamsulosin HCl (Flomax -) 0.4 mg PO HS [facility] Last Admin: 11/26/17 21:18 Dose: 0.4 mg - Objective Vital Signs: Vital Signs Temperature 97.9 F 11/27/17 09:59 Pulse Rate 82 11/27/17 09:59 Respiratory Rate 18 11/27/17 09:59 Blood Pressure 133/74 11/27/17 09:59 O2 Sat by Pulse Oximetry (%) 97 11/27/17 09:00 Constitutional: Yes: No Distress, Calm Cardiovascular: Yes: S1, S2 Respiratory: Yes: Poor Air Entry, Other Gastrointestinal: Yes: Normal Bowel Sounds, Soft Extremities: Yes: WNL Neurological: Yes: Alert, Oriented Psychiatric: Yes: Alert Labs: CBC, BMP 11/27/17 06:00 11/27/17 06:00 INR, PTT INR 0.99 (0.82-1.09) 11/16/17 16:00 Assessment/Plan Problem List - Problems (1) Acute CHF Code(s): I50.9 - HEART FAILURE, UNSPECIFIED Qualifiers: Heart failure type: diastolic Qualified Code(s): I50.31 - Acute diastolic ( congestive) heart failure (2) Acute on chronic renal failure Code(s): N17.9 - ACUTE KIDNEY FAILURE, UNSPECIFIED; N18.9 - CHRONIC KIDNEY DISEASE, UNSPECIFIED Qualifiers: Acute renal failure type: unspecified Chronic kidney disease stage: unspecified stage Qualified Code(s): N17.9 - Acute kidney failure, unspecified ; N18.9 - Chronic kidney disease, unspecified; N18.9 - Chronic kidney disease, unspecified (3) Hypoxia Code(s): R09.02 - HYPOXEMIA (4) Atrial fibrillation Code(s): I48.91 - UNSPECIFIED ATRIAL FIBRILLATION Qualifiers: Atrial fibrillation type: paroxysmal Qualified Code(s): I48.0 - Paroxysmal atrial fibrillation (5) Diabetes Code(s): E11.9 - TYPE 2 DIABETES [place] WITHOUT COMPLICATIONS Qualifiers: Diabetes mellitus type: type 2 Diabetes mellitus complication status: with circulatory complication (6) Hypertension Code(s): I10 - ESSENTIAL (PRIMARY) HYPERTENSION Qualifiers: Hypertension type: essential hypertension Qualified Code(s): I10 - Essential (primary) hypertension (7) UTI complicated plan finished abx course off of abx continue to monitor rest as per primary physio
[2017-11-27] MEDS: ATORVASTATIN CA 40 MG TABLET (FP) PO SCH (21:46)
[2017-11-27] MEDS: TAMSULOSIN HCL 0.4 MG CAP.ER.24H (FP) PO SCH (21:46)
[2017-11-27] MEDS: INSULIN (LEVEMIR) 100 UNITS/ML UNITS SQ SCH (21:48)
[2017-11-28] MEDS: MILRINONE 20MG/100ML IVPB - 20,000 MCG/100 ML ML IVPB SCH ×3 (05:31→22:47)
[2017-11-28] MEDS: hydrALAZINE HCL 10 MG TABLET PO SCH (05:31)
[2017-11-28] MEDS: INSULIN SLIDING SCALE (NOVOLOG) 1 VIAL SQ SCH ×4 (06:05→21:35)
[2017-11-28 07:44] LABS: BASO % 1.1 % (0-2.0); EOS % 1.4 % (0-4.5); HEMATOCRIT 22.3 % (35.4-49); HEMOGLOBIN 7.3 GM/dL (11.7-16.9); LYMPH % 8.7 % (8-40); MCH 30.2 pg (25.7-33.7); MEAN CELL VOLUME 91.5 fl (80-96); MEAN PLT VOLUME 9.4 fl (7.5-11.1); MONO % 9.4 % (3.8-10.2); NEUT % 79.4 % (42.8-82.8); PLATELET COUNT 136 K/MM3 (134-434); RBC 2.44 M/mm3 (4.00-5.60); RDW 21.4 % (11.9-15.9); WHITE BLOOD COUNT 7.3 K/mm3 (4.0-10.0)
[2017-11-28 08:33] LABS: CHLORIDE 109 mmol/L (98-107); POTASSIUM 3.9 mmol/L (3.5-5.1); SODIUM 143 mmol/L (136-145)
[2017-11-28 08:46] LABS: ANION GAP 11 (8-16); BLOOD UREA NITROGEN 87 mg/dL (7-18); CO2 23 mmol/L (21-32); CREATININE 4.4 mg/dL (0.7-1.3); GLUCOSE,RANDOM 114 mg/dL (74-106); MAGNESIUM 2.2 mg/dL (1.8-2.4); PHOSPHOROUS 5.9 mg/dL (2.5-4.9)
[2017-11-28] MEDS: CLOPIDOGREL BISULFATE 75 MG TABLET (FP) PO SCH (09:13)
[2017-11-28] MEDS: ISOSORBIDE DINITRATE 10 MG TABLET (FP) PO SCH ×3 (09:13→17:53)
[2017-11-28] MEDS: SODIUM BICARBONATE 650 MG TABLET PO SCH ×2 (09:13→21:35)
--- NOTE | 2017-11-28 11:28 | PN ---
Progress Note (short form) - Note Progress Note: Chief Complaint: sob History of Present Illness: still with suboptimal uop. milrinone started yesterday. s/p Lasix 100 mg IV x 1 yesterday. mild improvement in sob. no cp, palpitations, syncope ex cigs Current Medications: Atorvastatin Calcium (Lipitor -) 40 mg PO [facility] Last Admin: 11/27/17 21:46 Dose: 40 mg Clopidogrel Bisulfate (Plavix -) 75 mg PO DAILY [facility] Last Admin: 11/28/17 09:13 Dose: 75 mg Hydralazine HCl (Apresoline -) 50 mg PO TID [facility] Last Admin: 11/28/17 13:08 Dose: 50 mg Milrinone Lactate/Dextrose (Milrinone 20mg/100ml Ivpb -) 20,000 mcg in 100 mls @ 5.515 mls/hr IVPB TITR [facility] PRN Reason: 0.25 MCG/KG/MIN Last Admin: 11/28/17 12:04 Dose: 0.25 mcg/kg/min, 5.515 mls/hr Insulin Aspart (Novolog Vial Sliding Scale -) 1 vial SQ [facility] PRN Reason: Protocol Last Admin: 11/27/17 21:47 Dose: 2 unit Insulin Aspart (Novolog Vial Sliding Scale -) 1 vial SQ TIDAC [facility] PRN Reason: Protocol Last Admin: 11/28/17 12:04 Dose: Not Given Insulin Detemir (Levemir Vial) 10 units SQ [facility] Last Admin: 11/27/17 21:48 Dose: 10 units Isosorbide Dinitrate (Isordil -) 10 mg PO TIDISORDIL [facility] Last Admin: 11/28/17 13:07 Dose: 10 mg Metoprolol Succinate (Toprol Xl -) 50 mg PO DAILY [facility] Last Admin: 11/28/17 09:13 Dose: 50 mg Sodium Bicarbonate (Sodium Bicarbonate -) 650 mg PO BID [facility] Last Admin: 11/28/17 09:13 Dose: 650 mg Tamsulosin HCl (Flomax -) 0.4 mg PO HS [facility] Last Admin: 11/27/17 21:46 Dose: 0.4 mg - Objective Vital Signs: Vital Signs 11/28/17 11/28/17 11/28/17 09:00 09:32 14:46 Temperature 97.6 F Pulse Rate 76 72 Respiratory 16 16 16 Rate Blood Pressure 135/50 128/51 O2 Sat by Pulse 97 Oximetry (%) Constitutional: Yes: No Distress, Calm Eyes: No: Sclera Icterus HENT: No: Nasal Congestion Cardiovascular: Yes: Regular Rate and Rhythm, JVD elevated, S1, S2, Other (PMI non diplaced). No: Gallop, Murmur Respiratory: Yes: Diminished (absent R base, decr'd L base). No: Accessory Muscle Use, Rales, Wheezes Gastrointestinal: Yes: Normal Bowel Sounds, Soft. No: Tenderness Musculoskeletal: Yes: Other (No kyphosis) Extremities: No: Cold Edema: Yes (1+ pretib) Integumentary: No: Jaundice Neurological: Yes: Alert, Oriented (x3) Psychiatric: No: Agitated Labs: Laboratory Tests 11/27/17 11/28/17 06:00 06:00 Hgb 7.6 L Sodium 143 Potassium 3.9 Carbon Dioxide 23 BUN 87 H Creatinine 4.4 H Magnesium 2.2 Assessment/Plan ecg vpaced, underlying appears aflutter echo 10/2017: moderate concentric lvh. 1+ lve. mod-sev decreased LV sys fn, global. nl RV size. mod decreased RV sys fn. mod mitra. mod-sev mac. mod mr. mod-sev tr. rvsp > 60. trivial effusion. echo 11/2016: low nl lvef, mild lvh, nl rv, mitra, mod mr/tr, mod phtn echo 02/2015: mild lv dil, nl lvef, basal post-lat HK, nl rv size/fcn, severe biatrial dil, sev mr, sev tr, sev phtn, mod pr echo 11/2014: nl lv/rv, mod-sev mr, sev tr, sev phtn renal u/s: chronic medical renal disease. trace free fluid in upper abdomen. bilateral pleural effusions. see emr for detailed findings. mibi 11/2016: no ischemia tele: v-paced (? underlying flutter) CXR: persistent R > L effusion, pulm edema findings CT chest not reported--images reviewed with dr boyce: large R, small-moderate L pleural effusions, fluid in fissure areas of atx vs congestion vs infiltrate a/p: 67 m hx cad s/p nstemi/pci (11/2014 pt had chf with +trops so sent for cath [facility] [place] had rota and GIOVANNI to pLAD, residual dLCx and ramus 50-60% both), dchf, htn, hld, dm, ckd, afib on coumadin, cva, ppm (biotronik 05/2012), remote AAA repair, pad s/p left fem stent 2015 and left toe amp here with sob. acute systolic chf: - echo here shows new systolic cardiomyopathy. will need to consider stress vs. cath once euvolemic (inpatient vs. outpatient) pending course of KELLI/CKD-- this decision is better left to pt's longstanding treating healthcare social worker (dr liriano), and not until HF is optimized better. - ? etiology: r/o multivessel CAD as above. no tachyarrhythmia burden here. ? RV apical pacing cardiomyopathy--would have low threshold to consider ADOPTION COUNSELOR upgrade. defer to dr liriano (outpt cardio) once HF is better optimized. -has been receiving doses of lasix 80 iv qd to bid here, with progressively worsening renal fxn, no improvement in radiographic findings. wt currently unchanged vs initial wt here (162). ? dry wt. office dry wt 09/07 visit 154 lbs -given CT chest appearance clearly c/w chf, pt needs inotrope-assisted diuresis to improve efficacy and improve renal perfusion. started milrinone 11/27. -albumin 2.3, doubt significant 3rd-spacing component -cont low dose nitrates as doing, for cardiorenal syndrome -rec increase metoprolol to target syst CHF doses later, once fluid status improved -hold JONO/ARB/spirono due to severe KELLI - 11/28: con't milrinone. uptitrate afterload reduction further. increase hydral to 50 bid. con't isordil. Will redose lasix 100 mg IV x 1 with additional metolazone. If repeat bmp overall stable this evening, will redose lasix 100 mg IV x 1 again. discussed with renal. kelli on ckd: -sec to cardiorenal syndrome/low-output with renal hypoperfusion -chf optimization as above VTach: -K and Mg optimized (aggressive targets) -observe tele on milrinone -cont BB as doing cad/pci: -stable, no cp/angina/acs -preserved lvef echo 2016 and no ischemia on 2017 mibi, but with known cad/ residual disease now with new cardiomypathy. ischemic eval as mentioned above. -cont home bb, statin, plavix htn: -cont bb, hydral hld: -cont statin afib,aflutter,atach: -rate controlled as pt has complete heart block with ppm -Has hx of cva and was on AC and dapt previously before a prior GIB, and aortoenteric fistula. was followed by vascular at [facility], now by Dr. Ren. DAPT was deemed safe to resume in 2015 after LE stent. For now, cont plavix monotherapy. ppm (biotronik for CHB): -Normal fcn on recent office check, next routine check planned 11/2017 remote aaa repair/pad s/p multiple interventions and toe amputations : -stable, continue bp control. plavix, statin
[2017-11-28] MEDS ORDERED: METOLAZONE 5 MG TABLET PO ONE (12:00)
[2017-11-28] MEDS ORDERED: FUROSEMIDE 40 MG/4 ML INJECTABLE VIAL IVPB ONE (12:30)
[2017-11-28] MEDS: hydrALAZINE HCL 50 MG TABLET (FP) PO SCH ×2 (13:08→21:35)
--- NOTE | 2017-11-28 14:27 | PN ---
Progress Note, Physician History of Present Illness: stable off of abx no complaints - Current Medication List Current Medications: Active Medications Atorvastatin Calcium (Lipitor -) 40 mg PO HS [facility] Last Admin: 11/27/17 21:46 Dose: 40 mg Clopidogrel Bisulfate (Plavix -) 75 mg PO DAILY [facility] Last Admin: 11/28/17 09:13 Dose: 75 mg Hydralazine HCl (Apresoline -) 50 mg PO TID [facility] Last Admin: 11/28/17 13:08 Dose: 50 mg Milrinone Lactate/Dextrose (Milrinone 20mg/100ml Ivpb -) 20,000 mcg in 100 mls @ 5.515 mls/hr IVPB TITR [facility] PRN Reason: 0.25 MCG/KG/MIN Last Admin: 11/28/17 12:04 Dose: 0.25 mcg/kg/min, 5.515 mls/hr Insulin Aspart (Novolog Vial Sliding Scale -) 1 vial SQ HS [facility] PRN Reason: Protocol Last Admin: 11/27/17 21:47 Dose: 2 unit Insulin Aspart (Novolog Vial Sliding Scale -) 1 vial SQ TIDAC [facility] PRN Reason: Protocol Last Admin: 11/28/17 12:04 Dose: Not Given Insulin Detemir (Levemir Vial) 10 units SQ [facility] Last Admin: 11/27/17 21:48 Dose: 10 units Isosorbide Dinitrate (Isordil -) 10 mg PO TIDISORDIL [facility] Last Admin: 11/28/17 13:07 Dose: 10 mg Metoprolol Succinate (Toprol Xl -) 50 mg PO DAILY [facility] Last Admin: 11/28/17 09:13 Dose: 50 mg Sodium Bicarbonate (Sodium Bicarbonate -) 650 mg PO BID [facility] Last Admin: 11/28/17 09:13 Dose: 650 mg Tamsulosin HCl (Flomax -) 0.4 mg PO HS [facility] Last Admin: 11/27/17 21:46 Dose: 0.4 mg - Objective Vital Signs: Vital Signs Temperature 98.8 F 11/28/17 06:00 Pulse Rate 76 11/28/17 09:32 Respiratory Rate 16 11/28/17 09:32 Blood Pressure 135/50 11/28/17 09:32 O2 Sat by Pulse Oximetry (%) 97 11/28/17 09:00 Constitutional: Yes: No Distress, Calm Cardiovascular: Yes: S1, S2 Respiratory: Yes: Regular, CTA Bilaterally Gastrointestinal: Yes: Normal Bowel Sounds, Soft Musculoskeletal: Yes: WNL Extremities: Yes: WNL Neurological: Yes: Alert Psychiatric: Yes: Alert Labs: CBC, BMP 11/28/17 06:18 11/28/17 06:00 INR, PTT INR 0.99 (0.82-1.09) 11/16/17 16:00 Assessment/Plan Problem List - Problems (1) Acute CHF Code(s): I50.9 - HEART FAILURE, UNSPECIFIED Qualifiers: Heart failure type: diastolic Qualified Code(s): I50.31 - Acute diastolic ( congestive) heart failure (2) Acute on chronic renal failure Code(s): N17.9 - ACUTE KIDNEY FAILURE, UNSPECIFIED; N18.9 - CHRONIC KIDNEY DISEASE, UNSPECIFIED Qualifiers: Acute renal failure type: unspecified Chronic kidney disease stage: unspecified stage Qualified Code(s): N17.9 - Acute kidney failure, unspecified ; N18.9 - Chronic kidney disease, unspecified; N18.9 - Chronic kidney disease, unspecified (3) Hypoxia Code(s): R09.02 - HYPOXEMIA (4) Atrial fibrillation Code(s): I48.91 - UNSPECIFIED ATRIAL FIBRILLATION Qualifiers: Atrial fibrillation type: paroxysmal Qualified Code(s): I48.0 - Paroxysmal atrial fibrillation (5) Diabetes Code(s): E11.9 - TYPE 2 DIABETES MELLITUS WITHOUT COMPLICATIONS Qualifiers: Diabetes mellitus type: type 2 Diabetes mellitus complication status: with circulatory complication (6) Hypertension Code(s): I10 - ESSENTIAL (PRIMARY) HYPERTENSION Qualifiers: Hypertension type: essential hypertension Qualified Code(s): I10 - Essential (primary) hypertension (7) UTI complicated plan stable off of abx continue to monitor rest as per primary physio
--- NOTE | 2017-11-28 15:55 | PN ---
Progress Note, Physician Chief Complaint: Mr Howard says he feels unchanged. No cp, sob, n/v. - Current Medication List Current Medications: Active Medications Atorvastatin Calcium (Lipitor -) 40 mg PO HS [facility] Last Admin: 11/27/17 21:46 Dose: 40 mg Clopidogrel Bisulfate (Plavix -) 75 mg PO DAILY [facility] Last Admin: 11/28/17 09:13 Dose: 75 mg Hydralazine HCl (Apresoline -) 50 mg PO TID [facility] Last Admin: 11/28/17 13:08 Dose: 50 mg Milrinone Lactate/Dextrose (Milrinone 20mg/100ml Ivpb -) 20,000 mcg in 100 mls @ 5.515 mls/hr IVPB TITR [facility] PRN Reason: 0.25 MCG/KG/MIN Last Admin: 11/28/17 12:04 Dose: 0.25 mcg/kg/min, 5.515 mls/hr Insulin Aspart (Novolog Vial Sliding Scale -) 1 vial SQ HS [facility] PRN Reason: Protocol Last Admin: 11/27/17 21:47 Dose: 2 unit Insulin Aspart (Novolog Vial Sliding Scale -) 1 vial SQ TIDAC [facility] PRN Reason: Protocol Last Admin: 11/28/17 12:04 Dose: Not Given Insulin Detemir (Levemir Vial) 10 units SQ [facility] Last Admin: 11/27/17 21:48 Dose: 10 units Isosorbide Dinitrate (Isordil -) 10 mg PO TIDISORDIL [facility] Last Admin: 11/28/17 13:07 Dose: 10 mg Metoprolol Succinate (Toprol Xl -) 50 mg PO DAILY [facility] Last Admin: 11/28/17 09:13 Dose: 50 mg Sodium Bicarbonate (Sodium Bicarbonate -) 650 mg PO BID [facility] Last Admin: 11/28/17 09:13 Dose: 650 mg Tamsulosin HCl (Flomax -) 0.4 mg PO HS [facility] Last Admin: 11/27/17 21:46 Dose: 0.4 mg - Objective Vital Signs: Vital Signs Temperature 36.4 C 11/28/17 14:46 Pulse Rate 72 11/28/17 14:46 Respiratory Rate 16 11/28/17 14:46 Blood Pressure 128/51 11/28/17 14:46 O2 Sat by Pulse Oximetry (%) 97 11/28/17 09:00 Constitutional: Yes: Well Nourished, No Distress, Calm Cardiovascular: Yes: Regular Rate and Rhythm. No: Gallop, Murmur, Rub Respiratory: Yes: Regular, Rhonchi (bilateral bases). No: CTA Bilaterally, Rales, Wheezes Gastrointestinal: Yes: Normal Bowel Sounds, Soft. No: Distention, Tenderness Extremities: Yes: WNL Edema: No Labs: CBC, BMP 11/28/17 06:18 11/28/17 06:00 INR, PTT INR 0.99 (0.82-1.09) 11/16/17 16:00 Problem List - Problems (1) Acute CHF Code(s): I50.9 - HEART FAILURE, UNSPECIFIED Qualifiers: Heart failure type: diastolic Qualified Code(s): I50.31 - Acute diastolic ( congestive) heart failure (2) Acute on chronic renal failure Code(s): N17.9 - ACUTE KIDNEY FAILURE, UNSPECIFIED; N18.9 - CHRONIC KIDNEY DISEASE, UNSPECIFIED Qualifiers: Acute renal failure type: unspecified Chronic kidney disease stage: unspecified stage Qualified Code(s): N17.9 - Acute kidney failure, unspecified ; N18.9 - Chronic kidney disease, unspecified; N18.9 - Chronic kidney disease, unspecified (3) Hypoxia Code(s): R09.02 - HYPOXEMIA (4) Atrial fibrillation Code(s): I48.91 - UNSPECIFIED ATRIAL FIBRILLATION Qualifiers: Atrial fibrillation type: paroxysmal Qualified Code(s): I48.0 - Paroxysmal atrial fibrillation (5) Diabetes Code(s): E11.9 - TYPE 2 DIABETES MELLITUS WITHOUT COMPLICATIONS Qualifiers: Diabetes mellitus type: type 2 Diabetes mellitus complication status: with circulatory complication (6) Hypertension Code(s): I10 - ESSENTIAL (PRIMARY) HYPERTENSION Qualifiers: Hypertension type: essential hypertension Qualified Code(s): I10 - Essential (primary) hypertension Assessment/Plan (1) Acute CHF Assessment/Plan: -case d/w cardiology -continue milrinone and lasix -monitor for improvement Code(s): I50.9 - HEART FAILURE, UNSPECIFIED Qualifiers: Heart failure type: diastolic Qualified Code(s): I50.31 - Acute diastolic ( congestive) heart failure (2) Acute on chronic renal failure Assessment/Plan: -nephrology following -continues to worsen -will await nephrology recommendations Code(s): N17.9 - ACUTE KIDNEY FAILURE, UNSPECIFIED; N18.9 - CHRONIC KIDNEY DISEASE, UNSPECIFIED Qualifiers: Acute renal failure type: unspecified Chronic kidney disease stage: unspecified stage Qualified Code(s): N17.9 - Acute kidney failure, unspecified ; N18.9 - Chronic kidney disease, unspecified; N18.9 - Chronic kidney disease, unspecified (3) Hypoxia Assessment/Plan: -resolved Code(s): R09.02 - HYPOXEMIA (4) Atrial fibrillation Assessment/Plan: -rate controlled -cardiology following -continue plavix, not on AC Code(s): I48.91 - UNSPECIFIED ATRIAL FIBRILLATION Qualifiers: Atrial fibrillation type: paroxysmal Qualified Code(s): I48.0 - Paroxysmal atrial fibrillation (5) Diabetes Assessment/Plan: -diabetic diet and SSI Code(s): E11.9 - TYPE 2 DIABETES MELLITUS WITHOUT COMPLICATIONS Qualifiers: Diabetes mellitus type: type 2 Diabetes mellitus complication status: with circulatory complication (6) Hypertension Assessment/Plan: -well controlled -continue toprol xl Code(s): I10 - ESSENTIAL (PRIMARY) HYPERTENSION Qualifiers: Hypertension type: essential hypertension Qualified Code(s): I10 - Essential (primary) hypertension (7) UTI -finished full course zosyn
--- NOTE | 2017-11-28 16:10 | PN ---
Progress Note (short form) - Note Progress Note: NAD on RA. No CP or SOB. No acute events overnight.m Intake & Output 11/25/17 11/26/17 11/27/17 11/28/17 23:59 23:59 23:59 23:59 Intake Total 540 460 595 956 Output Total 1200 600 800 350 Balance -660 -140 -205 606 Weight 163 lb 3.2 oz 162 lb 2 oz 164 lb 8 oz Last Vital Signs Temp Pulse Resp BP Pulse Ox 97.6 F 72 16 128/51 97 11/28/17 14:46 11/28/17 14:46 11/28/17 14:46 11/28/17 14:46 11/28/17 09:00 Active Medications Atorvastatin Calcium (Lipitor -) 40 mg PO HS [facility] Last Admin: 11/27/17 21:46 Dose: 40 mg Clopidogrel Bisulfate (Plavix -) 75 mg PO DAILY [facility] Last Admin: 11/28/17 09:13 Dose: 75 mg Hydralazine HCl (Apresoline -) 50 mg PO TID [facility] Last Admin: 11/28/17 13:08 Dose: 50 mg Milrinone Lactate/Dextrose (Milrinone 20mg/100ml Ivpb -) 20,000 mcg in 100 mls @ 5.515 mls/hr IVPB TITR [facility] PRN Reason: 0.25 MCG/KG/MIN Last Admin: 11/28/17 12:04 Dose: 0.25 mcg/kg/min, 5.515 mls/hr Insulin Aspart (Novolog Vial Sliding Scale -) 1 vial SQ HS [facility] PRN Reason: Protocol Last Admin: 11/27/17 21:47 Dose: 2 unit Insulin Aspart (Novolog Vial Sliding Scale -) 1 vial SQ TIDAC [facility] PRN Reason: Protocol Last Admin: 11/28/17 12:04 Dose: Not Given Insulin Detemir (Levemir Vial) 10 units SQ HS [facility] Last Admin: 11/27/17 21:48 Dose: 10 units Isosorbide Dinitrate (Isordil -) 10 mg PO TIDISORDIL [facility] Last Admin: 11/28/17 13:07 Dose: 10 mg Metoprolol Succinate (Toprol Xl -) 50 mg PO DAILY [facility] Last Admin: 11/28/17 09:13 Dose: 50 mg Sodium Bicarbonate (Sodium Bicarbonate -) 650 mg PO BID [facility] Last Admin: 04/10/18 09:13 Dose: 650 mg Tamsulosin HCl (Flomax -) 0.4 mg PO HS [facility] Last Admin: 11/27/17 21:46 Dose: 0.4 mg Constitutional: Yes: NAD Eyes: Yes: WNL HENT: Yes: WNL Neck: Yes: WNL Cardiovascular: Yes: Pulse Irregular, S1, S2 Respiratory: Yes: Diminished at the bases Gastrointestinal: Yes: Normal Bowel Sounds, Soft Extremities: Yes: WNL Edema: No Labs: Laboratory Results - last 24 hr 11/27/17 11/27/17 11/28/17 17:03 21:32 05:07 WBC RBC Hgb Hct MCV MCH MCHC RDW Plt Count MPV Neutrophils % Lymphocytes % Monocytes % Eosinophils % Basophils % Sodium Potassium Chloride Carbon Dioxide Anion Gap BUN Creatinine POC Glucometer 206 241 132 Random Glucose Calcium Phosphorus Magnesium 11/28/17 11/28/17 11/28/17 06:00 06:18 11:54 WBC 7.3 RBC 2.44 L Hgb 7.3 L Hct 22.3 L MCV 91.5 MCH 30.2 MCHC 33.0 RDW 21.4 H Plt Count 136 MPV 9.4 Neutrophils % 79.4 Lymphocytes % 8.7 Monocytes % 9.4 Eosinophils % 1.4 Basophils % 1.1 Sodium 143 Potassium 3.9 Chloride 109 H Carbon Dioxide 23 Anion Gap 11 BUN 87 H Creatinine 4.4 H POC Glucometer 220 Random Glucose 114 H D Calcium 7.0 L Phosphorus 5.9 H Magnesium 2.2 Problem List - Problems (1) Acute CHF Code(s): I50.9 - HEART FAILURE, UNSPECIFIED Qualifiers: Heart failure type: diastolic Qualified Code(s): I50.31 - Acute diastolic ( congestive) heart failure (2) Acute on chronic renal failure Code(s): N17.9 - ACUTE KIDNEY FAILURE, UNSPECIFIED; N18.9 - CHRONIC KIDNEY DISEASE, UNSPECIFIED Qualifiers: Acute renal failure type: unspecified Chronic kidney disease stage: unspecified stage Qualified Code(s): N17.9 - Acute kidney failure, unspecified ; N18.9 - Chronic kidney disease, unspecified; N18.9 - Chronic kidney disease, unspecified (3) Hypoxia Code(s): R09.02 - HYPOXEMIA (4) Atrial fibrillation Code(s): I48.91 - UNSPECIFIED ATRIAL FIBRILLATION Qualifiers: Atrial fibrillation type: paroxysmal Qualified Code(s): I48.0 - Paroxysmal atrial fibrillation (5) Congestive heart failure Code(s): I50.9 - HEART FAILURE, UNSPECIFIED Qualifiers: Qualified Code(s): I50.22 - Chronic systolic (congestive) heart failure (6) Coronary artery disease Code(s): I25.10 - ATHSCL HEART DISEASE OF [place] CORONARY ARTERY W/O ANG PCTRS Qualifiers: Coronary Disease-Associated Artery/Lesion type: [place] coronary artery [place] vs. transplanted heart: [place] heart Associated angina: without angina pectoris (7) Diabetes Code(s): E11.9 - TYPE 2 DIABETES MELLITUS WITHOUT COMPLICATIONS Qualifiers: Diabetes mellitus type: type 2 Diabetes mellitus complication status: with circulatory complication (8) NSTEMI (non-ST elevated myocardial infarction) Code(s): I21.4 - NON-ST ELEVATION (NSTEMI) MYOCARDIAL INFARCTION (9) Peripheral vascular disease Code(s): I73.9 - PERIPHERAL VASCULAR DISEASE, UNSPECIFIED Assessment/Plan IMP DYSPNEA SECONDARY TO DECOMPENSATED CHF IMPROVED ASHD S/P STENT DIASTOLIC HF R PLEURAL EFFUSION PULMONARY HTN AFIB S/P PPM PULMONARY HTN DM ACUTE ON CHRONIC KIDNEY DISEASE AAA S/P REPAIR PVD HTN PLAN LASIX O2 DAILY WTS PLAVIX MILRINONE DRIP Dr Hogan
--- NOTE | 2017-11-28 17:04 | PN ---
Progress Note (short form) - Note Progress Note: Renal follow up for KELLI on CKD Pt seen and examined at the bedside no acute complaints reports feeling a little better denies overt sob making urine Vital Signs Temperature 97.6 F 11/28/17 14:46 Pulse Rate 72 11/28/17 14:46 Respiratory Rate 16 11/28/17 14:46 Blood Pressure 128/51 11/28/17 14:46 O2 Sat by Pulse Oximetry (%) 97 11/28/17 09:00 Intake & Output 11/25/17 11/26/17 11/27/17 11/28/17 23:59 23:59 23:59 23:59 Intake Total 540 460 595 956 Output Total 1200 600 800 350 Balance -660 -140 -205 606 Weight 74.026 kg 73.539 kg 74.616 kg NAD, awake and alert RRR Dec BS, no rales Trace LE edema 67 year old gentleman with PMhx of CKD Stage 3, CHF, AFib, Hypertension who presented with weakness and sob and found to have CHF exacerbation with KELLI #KELLI on CKD vs. 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
[2017-11-28] MEDS ORDERED: INSULIN (NOVOLOG) ASPART 100 UNITS/ML 10ML VIAL ONE (21:23)
[2017-11-28 21:25] LABS: ANION GAP 10 (8-16); BLOOD UREA NITROGEN 89 mg/dL (7-18); CALCIUM 7.1 mg/dL (8.5-10.1); CHLORIDE 107 mmol/L (98-107); CO2 24 mmol/L (21-32); CREATININE 4.5 mg/dL (0.7-1.3); SODIUM 141 mmol/L (136-145)
[2017-11-28] MEDS: ATORVASTATIN CA 40 MG TABLET (FP) PO SCH (21:35)
[2017-11-28] MEDS: TAMSULOSIN HCL 0.4 MG CAP.ER.24H (FP) PO SCH (21:35)
[2017-11-28] MEDS: INSULIN (LEVEMIR) 100 UNITS/ML UNITS SQ SCH (21:35)
[2017-11-28 21:49] LABS: GLUCOSE,RANDOM 308 mg/dL (74-106)
[2017-11-28] MEDS ORDERED: FUROSEMIDE 100 MG/10 ML INJECTABLE VIAL IVPUSH ONE (22:30)
[2017-11-29] MEDS: INSULIN SLIDING SCALE (NOVOLOG) 1 VIAL SQ SCH ×4 (06:15→21:26)
[2017-11-29] MEDS: hydrALAZINE HCL 50 MG TABLET (FP) PO SCH ×3 (06:16→23:00)
[2017-11-29 06:26] LABS: BASO % 0.7 % (0-2.0); EOS % 0.8 % (0-4.5); HEMATOCRIT 21.6 % (35.4-49); HEMOGLOBIN 7.1 GM/dL (11.7-16.9); LYMPH % 7.1 % (8-40); MCH 30.2 pg (25.7-33.7); MCHC 32.9 g/dl (32.0-35.9); MEAN CELL VOLUME 91.6 fl (80-96); MEAN PLT VOLUME 9.8 fl (7.5-11.1); MONO % 10.1 % (3.8-10.2); NEUT % 81.3 % (42.8-82.8); PLATELET COUNT 138 K/MM3 (134-434); RBC 2.36 M/mm3 (4.00-5.60); RDW 21.6 % (11.9-15.9); WHITE BLOOD COUNT 6.8 K/mm3 (4.0-10.0)
[2017-11-29 06:43] LABS: ANION GAP 12 (8-16); BLOOD UREA NITROGEN 89 mg/dL (7-18); CALCIUM 7.2 mg/dL (8.5-10.1); CHLORIDE 107 mmol/L (98-107); CO2 24 mmol/L (21-32); CREATININE 4.6 mg/dL (0.7-1.3); GLUCOSE,RANDOM 148 mg/dL (74-106); MAGNESIUM 2.3 mg/dL (1.8-2.4); PHOSPHOROUS 6.3 mg/dL (2.5-4.9); SODIUM 143 mmol/L (136-145)
[2017-11-29] MEDS: ISOSORBIDE DINITRATE 10 MG TABLET (FP) PO SCH ×3 (08:42→17:28)
[2017-11-29] MEDS: SODIUM BICARBONATE 650 MG TABLET PO SCH ×2 (09:30→21:19)
[2017-11-29] MEDS: CLOPIDOGREL BISULFATE 75 MG TABLET (FP) PO SCH (09:30)
--- NOTE | 2017-11-29 11:52 | PN ---
Progress Note (short form) - Note Progress Note: Chief Complaint: sob History of Present Illness: on milrinone mild improvement in sob. no cp, palpitations, syncope ex cigs Current Medications: Current Medications Generic Name Dose Route Start Last Admin Trade Name Connie PRN Reason Stop Dose Admin Atorvastatin Calcium 40 mg 11/17/17 22:00 11/28/17 21:35 Lipitor - PO 40 mg HS DAGO Administration Clopidogrel Bisulfate 75 mg 11/17/17 10:00 11/29/17 09:30 Plavix - PO 75 mg DAILY DAGO Administration Furosemide 100 mg 11/29/17 11:49 Lasix Injection - IVPUSH 11/29/17 11:50 ONCE ONE Hydralazine HCl 50 mg 11/28/17 14:00 11/29/17 06:16 Apresoline - PO 50 mg TID DAGO Administration Milrinone Lactate/Dextrose 20,000 mcg in 100 mls @ 5.515 mls/hr 11/27/17 12: 00 11/28/17 22:47 Milrinone 20mg/100ml Ivpb - IVPB 0.25 mcg/kg/min TITR DAGO 5.515 mls/hr 0.25 MCG/KG/MIN Administration Insulin Aspart 1 vial 11/16/17 22:00 11/28/17 21:35 Novolog Vial Sliding Scale - SQ 4 unit HS [facility] Administration Protocol Insulin Aspart 1 vial 11/17/17 07:00 11/29/17 11:42 Novolog Vial Sliding Scale - SQ Not Given TIDAC [facility] Protocol Insulin Detemir 10 units 11/26/17 22:00 11/28/17 21:35 Levemir Vial SQ 10 units HS D[facility]O Administration Isosorbide Dinitrate 10 mg 11/25/17 18:00 11/29/17 08:42 Isordil - PO 10 mg TIDISORDIL [facility]AGO Administration Metoprolol Succinate 50 mg 11/17/17 10:00 11/29/17 09:30 Toprol Xl - PO 50 mg DAILY [facility] Administration Sodium Bicarbonate 650 mg 11/17/17 22:00 11/29/17 09:30 Sodium Bicarbonate - PO 650 mg BID DAGO Administration Tamsulosin HCl 0.4 mg 11/16/17 22:00 11/28/17 21:35 Flomax - PO 0.4 mg HS DAGO Administration - Objective Vital Signs: Vital Signs Temp 98.6 F 11/29/17 10:00 Pulse 70 11/29/17 10:00 Resp 18 11/29/17 10:00 BP 124/46 11/29/17 10:00 Pulse Ox 98 11/29/17 09:00 Intake & Output 11/28/17 11/28/17 11/29/17 11:59 23:59 11:59 Intake Total 306 1010 336 Output Total 350 725 425 Balance -44 285 -89 Weight 164 lb 8 oz 166 lb 4 oz Intake: IV 66 120 96 MILRINONE 20MG/100ML IVPB 66 60 66 - 20,000 mcg In 100 ml @ 0.25 MCG/KG/MIN 5.515 mls/hr IVPB TITR DAGO Rx#: [id number] Saline Lock 60 30 Oral 240 890 240 Output: Urine 350 725 425 Void 350 725 425 Other: Voiding Method Urinal Urinal Urinal # Unmeasured Voids Void 300 Bowel Movement Yes Weight Measurement Method Standing Scale Standing Scale Constitutional: Yes: No Distress, Calm Eyes: No: Sclera Icterus HENT: No: Nasal Congestion Cardiovascular: Yes: Regular Rate and Rhythm, JVD elevated, S1, S2, Other (PMI non diplaced). No: Gallop, Murmur Respiratory: Yes: Diminished (absent R base, decr'd L base). No: Accessory Muscle Use, Rales, Wheezes Gastrointestinal: Yes: Normal Bowel Sounds, Soft. No: Tenderness Extremities: No: Cold Edema: no Integumentary: No: Jaundice Neurological: Yes: Alert, Oriented (x3) Psychiatric: No: Agitated Labs: Laboratory Last Values WBC 6.8 K/mm3 (4.0-10.0) 11/29/17 06:00 RBC 2.36 M/mm3 (4.00-5.60) L 11/29/17 06:00 Hgb 7.1 GM/dL (11.7-16.9) L 11/29/17 06:00 Hct 21.6 % (35.4-49) L 11/29/17 06:00 MCV 91.6 fl (80-96) 11/29/17 06:00 MCH 30.2 pg (25.7-33.7) 11/29/17 06:00 MCHC 32.9 g/dl (32.0-35.9) 11/29/17 06:00 RDW 21.6 % (11.9-15.9) H 11/29/17 06:00 Plt Count 138 K/MM3 (134-434) 11/29/17 06:00 MPV 9.8 fl (7.5-11.1) 11/29/17 06:00 Neutrophils % 81.3 % (42.8-82.8) 11/29/17 06:00 Lymphocytes % 7.1 % (8-40) L 11/29/17 06:00 Monocytes % 10.1 % (3.8-10.2) 11/29/17 06:00 Eosinophils % 0.8 % (0-4.5) 11/29/17 06:00 Basophils % 0.7 % (0-2.0) 11/29/17 06:00 Anisocytosis 3+ 11/27/17 06:00 Microcytosis Few 11/20/17 05:51 Macrocytosis Few 11/20/17 05:51 Ovalocytes Few 11/20/17 05:51 Acanthocytes (Spur) 2+ 11/20/17 05:51 PT with INR 11.20 SEC (9.98-11.88) 11/16/17 16:00 INR 0.99 (0.82-1.09) 11/16/17 16:00 Anticoagulation Therapy No Result Required. 11/16/17 18:50 Puncture Site Right radial 11/17/17 12:19 ABG pH 7.25 (7.35-7.45) L D 11/17/17 12:19 ABG pCO2 at Pt Temp 42.4 mmHg (35-45) 11/17/17 12:19 ABG pO2 at Pt Temp 77.3 mmHg (80-100) L 11/17/17 12:19 ABG HCO3 18.0 meq/L (22-26) L 11/17/17 12:19 ABG O2 Sat (Measured) 95.0 % (90-98.9) 11/17/17 12:19 ABG O2 Content 11.9 % vol (15-22) L 11/17/17 12:19 ABG Base Excess -8.2 meq/l (-2-2) L 11/17/17 12:19 Frank Test Positive 11/17/17 12:19 VBG pH 7.12 (7.32-7.42) L* 11/16/17 16:00 POC VBG pCO2 56.3 mmHg (38-52) H 11/16/17 16:00 POC VBG pO2 89.4 mmHg (28-48) H 11/16/17 16:00 Mixed VBG HCO3 17.8 meq/L (19-25) L 11/16/17 16:00 O2 Delivery Device No Result Required. 11/16/17 18:50 Oxygen Flow Rate Yes 11/17/17 12:19 Vent Mode No Result Required. 11/16/17 18:50 Vent Rate No Result Required. 11/16/17 18:50 Mechanical Rate No Result Required. 11/16/17 18:50 Pressure Support Vent No Result Required. 11/16/17 18:50 Sodium 143 mmol/L (136-145) 11/29/17 06:00 Potassium 4.0 mmol/L (3.5-5.1) 11/29/17 06:00 Chloride 107 mmol/L (98-107) 11/29/17 06:00 Carbon Dioxide 24 mmol/L (21-32) 11/29/17 06:00 Anion Gap 12 (8-16) 11/29/17 06:00 BUN 89 mg/dL (7-18) H 11/29/17 06:00 Creatinine 4.6 mg/dL (0.7-1.3) H 11/29/17 06:00 Creat Clearance w eGFR 13.40 (>60) 11/27/17 06:00 POC Glucometer 158 UNITS (80-120) 11/29/17 05:19 Random Glucose 148 mg/dL (74-106) H D 11/29/17 06:00 Hemoglobin A1c % 10.6 % (4.8-6.0) H D 11/21/17 06:25 Lactic Acid 1.1 mmol/L (0.0-2.0) 11/16/17 16:00 Calcium 7.2 mg/dL (8.5-10.1) L 11/29/17 06:00 Phosphorus 6.3 mg/dL (2.5-4.9) H 11/29/17 06:00 Magnesium 2.3 mg/dL (1.8-2.4) 11/29/17 06:00 Iron 29 ug/dL (38-169) L 11/21/17 06:25 TIBC 223 ug/dL (250-450) L 11/21/17 06:25 Iron Saturation 13 % (15-55) L 11/21/17 06:25 Ferritin 43.506 ng/ml (16.4-293.9) 11/21/17 06:25 Total Bilirubin 0.4 mg/dL (0.2-1.0) 11/27/17 06:00 Direct Bilirubin 0.2 mg/dL (0.0-0.2) D 11/26/17 06:00 AST 38 U/L (15-37) H D 11/27/17 06:00 ALT 47 U/L (12-78) 11/27/17 06:00 Alkaline Phosphatase 160 U/L (45-117) H D 11/27/17 06:00 Creatine Kinase 54 IU/L (39-308) 11/17/17 05:55 Troponin I 0.06 ng/ml (0.00-0.05) H D 11/17/17 05:55 B-Natriuretic Peptide 01453.11 pg/ml (5-125) H 11/16/17 16:00 Total Protein 5.5 g/dl (6.4-8.2) L 11/27/17 06:00 Albumin 2.3 g/dl (3.4-5.0) L 11/27/17 06:00 Urine Color Ltyellow 11/16/17 21:30 Urine Appearance Cloudy 11/16/17 21:30 Urine pH 5.0 (5.0-8.0) 11/16/17 21:30 Ur Specific [place] 1.012 (1.001-1.035) 11/16/17 21:30 Urine Protein 2+ (NEGATIVE) H 11/16/17 21:30 Urine Glucose (UA) 2+ (NEGATIVE) H 11/16/17 21:30 Urine Ketones Negative (NEGATIVE) 11/16/17 21:30 Urine Blood 1+ (NEGATIVE) H 11/16/17 21:30 Urine Nitrite Negative (NEGATIVE) 11/16/17 21:30 Urine Bilirubin Negative (<2.0 mg/dL) 11/16/17 21:30 Urine Urobilinogen Negative mg/dL (0.2-1.0) 11/16/17 21:30 Ur Leukocyte Esterase 1+ (NEGATIVE) H 11/16/17 21:30 Urine WBC (Auto) 20 /hpf (3-5) 11/16/17 21:30 Urine RBC (Auto) 3 /hpf (0-3) 11/16/17 21:30 Ur Epithelial Cells Rare /HPF (FEW) 11/16/17 21:30 Urine Bacteria Rare /hpf (NONE SEEN) 11/16/17 21:30 Urine Mucus Rare 11/16/17 21:30 U Random Total Protein 258 mg/dl (5-11.9) H 11/17/17 18:00 Ur Random Urea Nitrogn 324 mg/dL 11/17/17 18:00 Urine Creatinine 54.9 mg/dL (20-370) 11/17/17 18:00 SHAKIR Screen Negative (.) 11/21/17 06:25 RPR Titer Nonreactive (NONREACTIVE) 11/21/17 06:25 Hepatitis A IgM Ab Negative (Negative) 11/21/17 06:25 Hep Bs Antigen Negative (Negative) 11/21/17 06:25 Hep B Core IgM Ab Negative (Negative) 11/21/17 06:25 Hepatitis C Antibody 0.1 s/co ratio (0.0-0.9) 11/21/17 06:25 HIV 1&2 Antibody Screen Negative 11/20/17 18:20 HIV P24 Antigen Negative 11/20/17 18:20 ecg vpaced, underlying appears aflutter echo 10/2017: moderate concentric lvh. 1+ lve. mod-sev decreased LV sys fn, global. nl RV size. mod decreased RV sys fn. mod mitra. mod-sev mac. mod mr. mod-sev tr. rvsp > 60. trivial effusion. echo 11/2016: low nl lvef, mild lvh, nl rv, mitra, mod mr/tr, mod phtn echo 02/2015: mild lv dil, nl lvef, basal post-lat HK, nl rv size/fcn, severe biatrial dil, sev mr, sev tr, sev phtn, mod pr echo 11/2014: nl lv/rv, mod-sev mr, sev tr, sev phtn renal u/s: chronic medical renal disease. trace free fluid in upper abdomen. bilateral pleural effusions. see emr for detailed findings. mibi 11/2016: no ischemia tele: v-paced CXR: persistent R > L effusion, pulm edema findings CT chest not reported--images reviewed with dr boyce: large R, small-moderate L pleural effusions, fluid in fissure areas of atx vs congestion vs infiltrate a/p: 67 m hx cad s/p nstemi/pci (11/2014 pt had chf with +trops so sent for cath [facility] [place] [place] and had rota and GIOVANNI to pLAD, residual dLCx and ramus 50-60% both), dchf, htn, hld, dm, ckd, afib on coumadin, cva, ppm (biotronik 05/2012), remote AAA repair, pad s/p left fem stent 2015 and left toe amp here with sob. acute systolic chf: - echo here shows new systolic cardiomyopathy. will need to consider stress vs. cath once euvolemic (inpatient vs. 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 - ? etiology: r/o multivessel CAD as above. no tachyarrhythmia burden here. ? 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 defer to dr liriano (outpt cardio) once HF is better optimized. -has been receiving doses of lasix 80 iv qd to bid here, with progressively worsening renal fxn, no improvement in radiographic findings. wt currently unchanged vs initial wt here (162). ? dry wt. office dry wt 09/07 visit 154 lbs -given CT chest appearance clearly c/w chf, pt needs inotrope-assisted diuresis to improve efficacy and improve renal perfusion. started milrinone 11/27. -albumin 2.3, doubt significant 3rd-spacing component -cont low dose nitrates as doing, for cardiorenal syndrome -rec increase metoprolol to target syst CHF doses later, once fluid status improved -hold JONO/ARB/spirono due to severe KELLI - 11/28: con't milrinone. uptitrate afterload reduction further. increase hydral to 50 bid. con't isordil. Will redose lasix 100 mg IV x 1 with additional metolazone. If repeat bmp overall stable this evening, will redose lasix 100 mg IV x 1 again. -11/29: cont milrinone, will give lasix 100 iv x1 today kelli on ckd: -?sec to cardiorenal syndrome/low-output with renal hypoperfusion -chf optimization as above VTach: -K and Mg optimized (aggressive targets) -observe tele on milrinone -cont BB as doing cad/pci: -stable, no cp/angina/acs -preserved lvef echo 2017 and no ischemia on 2017 mibi, but with known cad/ residual disease now with new cardiomypathy. ischemic eval as mentioned above. -cont home bb, statin, plavix htn: -cont bb, hydral hld: -cont statin afib,aflutter,atach: -rate controlled as pt has complete heart block with ppm -Has hx of cva and was on AC and dapt previously before a prior GIB, and aortoenteric fistula. was followed by vascular at [facility], now by Dr. Ren. DAPT was deemed safe to resume in 2016 after LE stent. For now, cont plavix monotherapy. ppm (biotronik for CHB): -Normal fcn on recent office check, next routine check planned 11/2017 remote aaa repair/pad s/p multiple interventions and toe amputations : -stable, continue bp control. plavix, statin
[2017-11-29] MEDS ORDERED: FUROSEMIDE 100 MG/10 ML INJECTABLE VIAL IVPUSH ONE (12:15)
[2017-11-29] MEDS: MILRINONE 20MG/100ML IVPB - 20,000 MCG/100 ML ML IVPB SCH (12:16)
--- NOTE | 2017-11-29 12:36 | PN ---
Progress Note, Physician History of Present Illness: PULMONARY ALERT,COMFORTABLE NAD ON MILRINONE DRIO - Current Medication List Current Medications: Active Medications Atorvastatin Calcium (Lipitor -) 40 mg PO HS [facility] Last Admin: 11/28/17 21:35 Dose: 40 mg Clopidogrel Bisulfate (Plavix -) 75 mg PO DAILY [facility] Last Admin: 11/29/17 09:30 Dose: 75 mg Hydralazine HCl (Apresoline -) 50 mg PO TID [facility] Last Admin: 11/29/17 06:16 Dose: 50 mg Milrinone Lactate/Dextrose (Milrinone 20mg/100ml Ivpb -) 20,000 mcg in 100 mls @ 5.515 mls/hr IVPB TITR [facility] PRN Reason: 0.25 MCG/KG/MIN Last Admin: 11/29/17 12:16 Dose: 0.25 mcg/kg/min, 5.515 mls/hr Insulin Aspart (Novolog Vial Sliding Scale -) 1 vial SQ HS [facility] PRN Reason: Protocol Last Admin: 11/28/17 21:35 Dose: 4 unit Insulin Aspart (Novolog Vial Sliding Scale -) 1 vial SQ TIDAC [facility] PRN Reason: Protocol Last Admin: 11/29/17 11:42 Dose: Not Given Insulin Detemir (Levemir Vial) 10 units SQ [facility] Last Admin: 11/28/17 21:35 Dose: 10 units Isosorbide Dinitrate (Isordil -) 10 mg PO TIDISORDIL [facility] Last Admin: 11/29/17 12:16 Dose: 10 mg Metoprolol Succinate (Toprol Xl -) 50 mg PO DAILY [facility] Last Admin: 11/29/17 09:30 Dose: 50 mg Sodium Bicarbonate (Sodium Bicarbonate -) 650 mg PO BID [facility] Last Admin: 11/29/17 09:30 Dose: 650 mg Tamsulosin HCl (Flomax -) 0.4 mg PO HS [facility] Last Admin: 11/28/17 21:35 Dose: 0.4 mg - Objective Vital Signs: Vital Signs Temperature 98.6 F 11/29/17 10:00 Pulse Rate 70 11/29/17 10:00 Respiratory Rate 18 11/29/17 10:00 Blood Pressure 124/46 11/29/17 10:00 O2 Sat by Pulse Oximetry (%) 98 11/29/17 09:00 Constitutional: Yes: Well Nourished, Calm Eyes: Yes: WNL HENT: Yes: WNL Neck: Yes: WNL Cardiovascular: Yes: Pulse Irregular, S1, S2 Respiratory: Yes: Diminished Gastrointestinal: Yes: Normal Bowel Sounds, Soft Extremities: Yes: WNL Edema: No Labs: CBC, BMP 11/29/17 06:00 11/29/17 06:00 INR, PTT INR 0.99 (0.82-1.09) 11/16/17 16:00 Problem List - Problems (1) Acute CHF Code(s): I50.9 - HEART FAILURE, UNSPECIFIED Qualifiers: Heart failure type: diastolic Qualified Code(s): I50.31 - Acute diastolic ( congestive) heart failure (2) Acute on chronic renal failure Code(s): N17.9 - ACUTE KIDNEY FAILURE, UNSPECIFIED; N18.9 - CHRONIC KIDNEY DISEASE, UNSPECIFIED Qualifiers: Acute renal failure type: unspecified Chronic kidney disease stage: unspecified stage Qualified Code(s): N17.9 - Acute kidney failure, unspecified ; N18.9 - Chronic kidney disease, unspecified; N18.9 - Chronic kidney disease, unspecified (3) Hypoxia Code(s): R09.02 - HYPOXEMIA (4) Atrial fibrillation Code(s): I48.91 - UNSPECIFIED ATRIAL FIBRILLATION Qualifiers: Atrial fibrillation type: paroxysmal Qualified Code(s): I48.0 - Paroxysmal atrial fibrillation (5) Congestive heart failure Code(s): I50.9 - HEART FAILURE, UNSPECIFIED Qualifiers: Qualified Code(s): I50.22 - Chronic systolic (congestive) heart failure (6) Coronary artery disease Code(s): I25.10 - ATHSCL HEART DISEASE OF [place] CORONARY ARTERY W/O ANG PCTRS Qualifiers: Coronary Disease-Associated Artery/Lesion type: [place] coronary artery [place] vs. transplanted heart: [place] heart Associated angina: without angina pectoris (7) Diabetes Code(s): E11.9 - TYPE 2 DIABETES MELLITUS WITHOUT COMPLICATIONS Qualifiers: Diabetes mellitus type: type 2 Diabetes mellitus complication status: with circulatory complication (8) NSTEMI (non-ST elevated myocardial infarction) Code(s): I21.4 - NON-ST ELEVATION (NSTEMI) MYOCARDIAL INFARCTION (9) Peripheral vascular disease Code(s): I73.9 - PERIPHERAL VASCULAR DISEASE, UNSPECIFIED Assessment/Plan IMP DYSPNEA SECONDARY TO DECOMPENSATED CHF IMPROVED ASHD S/P STENT DIASTOLIC HF BILATERAL PLEURAL EFFUSION PULMONARY HTN AFIB S/P PPM PULMONARY HTN DM ACUTE ON CHRONIC KIDNEY DISEASE AAA S/P REPAIR PVD HTN PLAN LASIX MILRINONE O2 DAILY WTS PLAVIX MONITOR LYTES,RENAL FUNCTION DR SO Problem List - Problems (1) Acute CHF Code(s): I50.9 - HEART FAILURE, UNSPECIFIED Qualifiers: Heart failure type: unspecified Qualified Code(s): I50.9 - Heart failure, unspecified (2) Acute on chronic renal failure Code(s): N17.9 - ACUTE KIDNEY FAILURE, UNSPECIFIED; N18.9 - CHRONIC KIDNEY DISEASE, UNSPECIFIED Qualifiers: Acute renal failure type: unspecified Chronic kidney disease stage: unspecified stage Qualified Code(s): N17.9 - Acute kidney failure, unspecified ; N18.9 - Chronic kidney disease, unspecified; N18.9 - Chronic kidney disease, unspecified (3) Hypoxia Code(s): R09.02 - HYPOXEMIA (4) Atrial fibrillation Code(s): I48.91 - UNSPECIFIED ATRIAL FIBRILLATION Qualifiers: Atrial fibrillation type: paroxysmal Qualified Code(s): I48.0 - Paroxysmal atrial fibrillation (5) Congestive heart failure Code(s): I50.9 - HEART FAILURE, UNSPECIFIED Qualifiers: Qualified Code(s): I50.22 - Chronic systolic (congestive) heart failure (6) Coronary artery disease Code(s): I25.10 - ATHSCL HEART DISEASE OF [place] CORONARY ARTERY W/O ANG PCTRS Qualifiers: Coronary Disease-Associated Artery/Lesion type: [place] coronary artery [place] vs. transplanted heart: [place] heart Associated angina: without angina pectoris (7) Diabetes Code(s): E11.9 - TYPE 2 DIABETES MELLITUS WITHOUT COMPLICATIONS Qualifiers: Diabetes mellitus type: type 2 Diabetes mellitus complication status: with circulatory complication (8) NSTEMI (non-ST elevated myocardial infarction) Code(s): I21.4 - NON-ST ELEVATION (NSTEMI) MYOCARDIAL INFARCTION (9) Peripheral vascular disease Code(s): I73.9 - PERIPHERAL VASCULAR DISEASE, UNSPECIFIED
--- NOTE | 2017-11-29 15:13 | PN ---
Progress Note, Physician History of Present Illness: alert comfortable no complaints on milnirone drip says doing well - Current Medication List Current Medications: Active Medications Atorvastatin Calcium (Lipitor -) 40 mg PO HS [facility] Last Admin: 11/28/17 21:35 Dose: 40 mg Calcium Acetate (Phoslo -) 667 mg PO TIDCM [facility] Clopidogrel Bisulfate (Plavix -) 75 mg PO DAILY [facility] Last Admin: 11/29/17 09:30 Dose: 75 mg Hydralazine HCl (Apresoline -) 50 mg PO TID [facility] Last Admin: 11/29/17 14:54 Dose: 50 mg Milrinone Lactate/Dextrose (Milrinone 20mg/100ml Ivpb -) 20,000 mcg in 100 mls @ 5.515 mls/hr IVPB TITR [facility] PRN Reason: 0.25 MCG/KG/MIN Last Admin: 11/29/17 12:16 Dose: 0.25 mcg/kg/min, 5.515 mls/hr Insulin Aspart (Novolog Vial Sliding Scale -) 1 vial SQ HS [facility] PRN Reason: Protocol Last Admin: 11/28/17 21:35 Dose: 4 unit Insulin Aspart (Novolog Vial Sliding Scale -) 1 vial SQ TIDAC [facility] PRN Reason: Protocol Last Admin: 11/29/17 11:42 Dose: Not Given Insulin Detemir (Levemir Vial) 10 units SQ [facility] Last Admin: 11/28/17 21:35 Dose: 10 units Isosorbide Dinitrate (Isordil -) 10 mg PO TIDISORDIL [facility] Last Admin: 11/29/17 12:16 Dose: 10 mg Metoprolol Succinate (Toprol Xl -) 50 mg PO DAILY [facility] Last Admin: 11/29/17 09:30 Dose: 50 mg Sodium Bicarbonate (Sodium Bicarbonate -) 650 mg PO BID [facility] Last Admin: 11/29/17 09:30 Dose: 650 mg Tamsulosin HCl (Flomax -) 0.4 mg PO [facility] Last Admin: 11/28/17 21:35 Dose: 0.4 mg - Objective Vital Signs: Vital Signs Temperature 99.7 F H 11/29/17 14:59 Pulse Rate 96 H 11/29/17 14:59 Respiratory Rate 18 11/29/17 14:59 Blood Pressure 133/66 11/29/17 14:59 O2 Sat by Pulse Oximetry (%) 98 11/29/17 09:00 Constitutional: Yes: No Distress, Calm Cardiovascular: Yes: Pulse Irregular Respiratory: Yes: Regular, CTA Bilaterally Gastrointestinal: Yes: Normal Bowel Sounds, Soft Musculoskeletal: Yes: WNL Extremities: Yes: WNL Neurological: Yes: Alert, Oriented Psychiatric: Yes: Alert, Oriented Labs: CBC, BMP 11/29/17 06:00 11/29/17 06:00 INR, PTT INR 0.99 (0.82-1.09) 11/16/17 16:00 Assessment/Plan Problem List - Problems (1) Acute CHF Code(s): I50.9 - HEART FAILURE, UNSPECIFIED Qualifiers: Heart failure type: diastolic Qualified Code(s): I50.31 - Acute diastolic ( congestive) heart failure (2) Acute on chronic renal failure Code(s): N17.9 - ACUTE KIDNEY FAILURE, UNSPECIFIED; N18.9 - CHRONIC KIDNEY DISEASE, UNSPECIFIED Qualifiers: Acute renal failure type: unspecified Chronic kidney disease stage: unspecified stage Qualified Code(s): N17.9 - Acute kidney failure, unspecified ; N18.9 - Chronic kidney disease, unspecified; N18.9 - Chronic kidney disease, unspecified (3) Hypoxia Code(s): R09.02 - HYPOXEMIA (4) Atrial fibrillation Code(s): I48.91 - UNSPECIFIED ATRIAL FIBRILLATION Qualifiers: Atrial fibrillation type: paroxysmal Qualified Code(s): I48.0 - Paroxysmal atrial fibrillation (5) Diabetes Code(s): E11.9 - TYPE 2 DIABETES MELLITUS WITHOUT COMPLICATIONS Qualifiers: Diabetes mellitus type: type 2 Diabetes mellitus complication status: with circulatory complication (6) Hypertension Code(s): I10 - ESSENTIAL (PRIMARY) HYPERTENSION Qualifiers: Hypertension type: essential hypertension Qualified Code(s): I10 - Essential (primary) hypertension (7) UTI complicated plan stable off of abx continue to monitor on drip milnirone rest as per cardio and primary
--- NOTE | 2017-11-29 16:15 | PN ---
Progress Note, Physician Chief Complaint: Mr Howard says he feels unchanged. No cp, sob, n/v. - Current Medication List Current Medications: Active Medications Atorvastatin Calcium (Lipitor -) 40 mg PO HS [facility] Last Admin: 11/28/17 21:35 Dose: 40 mg Calcium Acetate (Phoslo -) 667 mg PO TIDCM [facility] Clopidogrel Bisulfate (Plavix -) 75 mg PO DAILY [facility] Last Admin: 11/29/17 09:30 Dose: 75 mg Hydralazine HCl (Apresoline -) 50 mg PO TID [facility] Last Admin: 11/29/17 14:54 Dose: 50 mg Milrinone Lactate/Dextrose (Milrinone 20mg/100ml Ivpb -) 20,000 mcg in 100 mls @ 5.515 mls/hr IVPB TITR [facility] PRN Reason: 0.25 MCG/KG/MIN Last Admin: 11/29/17 12:16 Dose: 0.25 mcg/kg/min, 5.515 mls/hr Insulin Aspart (Novolog Vial Sliding Scale -) 1 vial SQ HS [facility] PRN Reason: Protocol Last Admin: 11/28/17 21:35 Dose: 4 unit Insulin Aspart (Novolog Vial Sliding Scale -) 1 vial SQ TIDAC [facility] PRN Reason: Protocol Last Admin: 11/29/17 11:42 Dose: Not Given Insulin Detemir (Levemir Vial) 10 units SQ [facility] Last Admin: 11/28/17 21:35 Dose: 10 units Isosorbide Dinitrate (Isordil -) 10 mg PO TIDISORDIL [facility] Last Admin: 11/29/17 12:16 Dose: 10 mg Metoprolol Succinate (Toprol Xl -) 50 mg PO DAILY [facility] Last Admin: 11/29/17 09:30 Dose: 50 mg Sodium Bicarbonate (Sodium Bicarbonate -) 650 mg PO BID [facility] Last Admin: 11/29/17 09:30 Dose: 650 mg Tamsulosin HCl (Flomax -) 0.4 mg PO HS [facility] Last Admin: 11/28/17 21:35 Dose: 0.4 mg - Objective Vital Signs: Vital Signs Temperature 37.6 C H 11/29/17 14:59 Pulse Rate 96 H 11/29/17 14:59 Respiratory Rate 18 11/29/17 14:59 Blood Pressure 133/66 11/29/17 14:59 O2 Sat by Pulse Oximetry (%) 98 11/29/17 09:00 Constitutional: Yes: Well Nourished, No Distress, Calm Cardiovascular: Yes: Regular Rate and Rhythm. No: Gallop, Murmur, Rub Respiratory: Yes: Rhonchi. No: On Nasal O2, Rales, Wheezes Gastrointestinal: Yes: Normal Bowel Sounds, Soft. No: Distention, Tenderness Extremities: Yes: WNL Edema: No Labs: CBC, BMP 11/29/17 06:00 11/29/17 06:00 INR, PTT INR 0.99 (0.82-1.09) 11/16/17 16:00 Problem List - Problems (1) Acute CHF Code(s): I50.9 - HEART FAILURE, UNSPECIFIED Qualifiers: Heart failure type: diastolic Qualified Code(s): I50.31 - Acute diastolic ( congestive) heart failure (2) Acute on chronic renal failure Code(s): N17.9 - ACUTE KIDNEY FAILURE, UNSPECIFIED; N18.9 - CHRONIC KIDNEY DISEASE, UNSPECIFIED Qualifiers: Acute renal failure type: unspecified Chronic kidney disease stage: unspecified stage Qualified Code(s): N17.9 - Acute kidney failure, unspecified ; N18.9 - Chronic kidney disease, unspecified; N18.9 - Chronic kidney disease, unspecified (3) Hypoxia Code(s): R09.02 - HYPOXEMIA (4) Atrial fibrillation Code(s): I48.91 - UNSPECIFIED ATRIAL FIBRILLATION Qualifiers: Atrial fibrillation type: paroxysmal Qualified Code(s): I48.0 - Paroxysmal atrial fibrillation (5) Diabetes Code(s): E11.9 - TYPE 2 DIABETES MELLITUS WITHOUT COMPLICATIONS Qualifiers: Diabetes mellitus type: type 2 Diabetes mellitus complication status: with circulatory complication (6) Hypertension Code(s): I10 - ESSENTIAL (PRIMARY) HYPERTENSION Qualifiers: Hypertension type: essential hypertension Qualified Code(s): I10 - Essential (primary) hypertension Assessment/Plan (1) Acute CHF Assessment/Plan: -cardiology note reviewed -continue milrinone -given lasix 100mg IV today Code(s): I50.9 - HEART FAILURE, UNSPECIFIED Qualifiers: Heart failure type: diastolic Qualified Code(s): I50.31 - Acute diastolic ( congestive) heart failure (2) Acute on chronic renal failure Assessment/Plan: -nephrology note reviewed from 11/28 -may require HD in the future -monitor, not improving Code(s): N17.9 - ACUTE KIDNEY FAILURE, UNSPECIFIED; N18.9 - CHRONIC KIDNEY DISEASE, UNSPECIFIED Qualifiers: Acute renal failure type: unspecified Chronic kidney disease stage: unspecified stage Qualified Code(s): N17.9 - Acute kidney failure, unspecified ; N18.9 - Chronic kidney disease, unspecified; N18.9 - Chronic kidney disease, unspecified (3) Hypoxia Assessment/Plan: -resolved Code(s): R09.02 - HYPOXEMIA (4) Atrial fibrillation Assessment/Plan: -rate controlled -cardiology following -continue plavix, not on AC Code(s): I48.91 - UNSPECIFIED ATRIAL FIBRILLATION Qualifiers: Atrial fibrillation type: paroxysmal Qualified Code(s): I48.0 - Paroxysmal atrial fibrillation (5) Diabetes Assessment/Plan: -diabetic diet and SSI Code(s): E11.9 - TYPE 2 DIABETES MELLITUS WITHOUT COMPLICATIONS Qualifiers: Diabetes mellitus type: type 2 Diabetes mellitus complication status: with circulatory complication (6) Hypertension Assessment/Plan: -well controlled -continue toprol xl Code(s): I10 - ESSENTIAL (PRIMARY) HYPERTENSION Qualifiers: Hypertension type: essential hypertension Qualified Code(s): I10 - Essential (primary) hypertension (7) UTI -finished full course zosyn
[2017-11-29] MEDS: CALCIUM ACETATE 667 MG CAPSULE (FP) PO SCH (17:28)
--- NOTE | 2017-11-29 19:50 | PN ---
Progress Note (short form) - Note Progress Note: Renal follow up for KELLI on CKD Pt seen and examined in the [facility] with patient denies any overt sob no chest pain, abd pain, N/V/D weights going up despite milirone and lasix Vital Signs Temperature 99.7 F H 11/29/17 14:59 Pulse Rate 96 H 11/29/17 14:59 Respiratory Rate 18 11/29/17 14:59 Blood Pressure 133/66 11/29/17 14:59 O2 Sat by Pulse Oximetry (%) 98 11/29/17 09:00 Intake & Output 11/26/17 11/27/17 11/28/17 11/29/17 23:59 23:59 23:59 23:59 Intake Total 207 469 9873 886 Output Total 402 024 5612 805 Balance -140 -205 241 81 Weight 73.539 kg 74.616 kg 75.41 kg NAD, awake and alert RRR Dec BS, no rales Trace LE edema CBC, BMP 11/29/17 06:00 11/29/17 06:00 Current Medications Atorvastatin Calcium (Lipitor -) 40 mg PO HS [facility] Last Admin: 11/28/17 21:35 Dose: 40 mg Calcium Acetate (Phoslo -) 667 mg PO TIDCM [facility] Last Admin: 11/29/17 17:28 Dose: 667 mg Clopidogrel Bisulfate (Plavix -) 75 mg PO DAILY [facility] Last Admin: 11/29/17 09:30 Dose: 75 mg Furosemide (Lasix Injection -) 100 mg IVPB ONCE ONE Stop: 11/29/17 19:52 Hydralazine HCl (Apresoline -) 50 mg PO TID [facility] Last Admin: 11/29/17 14:54 Dose: 50 mg Milrinone Lactate/Dextrose (Milrinone 20mg/100ml Ivpb -) 20,000 mcg in 100 mls @ 5.515 mls/hr IVPB TITR [facility] PRN Reason: 0.25 MCG/KG/MIN Last Admin: 11/29/17 12:16 Dose: 0.25 mcg/kg/min, 5.515 mls/hr Insulin Aspart (Novolog Vial Sliding Scale -) 1 vial SQ HS [facility] PRN Reason: Protocol Last Admin: 11/28/17 21:35 Dose: 4 unit Insulin Aspart (Novolog Vial Sliding Scale -) 1 vial SQ TIDAC [facility] PRN Reason: Protocol Last Admin: 11/29/17 17:28 Dose: 4 units Insulin Detemir (Levemir Vial) 10 units SQ HS [facility] Last Admin: 11/28/17 21:35 Dose: 10 units Isosorbide Dinitrate (Isordil -) 10 mg PO TIDISORDIL [facility] Last Admin: 11/29/17 17:28 Dose: 10 mg Metoprolol Succinate (Toprol Xl -) 50 mg PO DAILY [facility] Last Admin: 11/29/17 09:30 Dose: 50 mg Sodium Bicarbonate (Sodium Bicarbonate -) 650 mg PO BID [facility] Last Admin: 11/29/17 09:30 Dose: 650 mg Tamsulosin HCl (Flomax -) 0.4 mg PO HS [facility] Last Admin: 11/28/17 21:35 Dose: 0.4 mg 67 year old gentleman with PMhx of CKD Stage 3, CHF, AFib, Hypertension who presented with weakness and sob and found to have CHF exacerbation with KELLI #KELLI on CKD vs. progressive CKD #Nephrotic Proteinuira #SOB secondary to CHF exacerbation Renal function w/o improvement thus far pt with effusions and continued clinical signs of HF will order additional Lasix IVPB this evening with goal of weight loss can consider Lasix gtt if weight loss not obtained by bolus lasix continue milirone as per cardiology no acute indication for ENVIR[employer]MENT[employer] FIELD [employer]ESSION[employer] at the present time serologic w/u for secondary causes of proteionuria negative Beau Iraheta DO
[2017-11-29] MEDS ORDERED: FUROSEMIDE 100 MG/10 ML INJECTABLE VIAL IVPB ONE (20:00)
[2017-11-29] MEDS: TAMSULOSIN HCL 0.4 MG CAP.ER.24H (FP) PO SCH (21:19)
[2017-11-29] MEDS: ATORVASTATIN CA 40 MG TABLET (FP) PO SCH (21:19)
[2017-11-29] MEDS: INSULIN (LEVEMIR) 100 UNITS/ML UNITS SQ SCH (21:21)
[2017-11-30] MEDS: hydrALAZINE HCL 50 MG TABLET (FP) PO SCH ×3 (06:45→21:34)
[2017-11-30] MEDS: INSULIN SLIDING SCALE (NOVOLOG) 1 VIAL SQ SCH ×5 (06:45→22:33)
[2017-11-30 07:34] LABS: BASO % 0.8 % (0-2.0); HEMATOCRIT 21.2 % (35.4-49); LYMPH % 7.6 % (8-40); MCH 29.7 pg (25.7-33.7); MCHC 32.5 g/dl (32.0-35.9); MEAN CELL VOLUME 91.4 fl (80-96); MEAN PLT VOLUME 9.9 fl (7.5-11.1); MONO % 11.4 % (3.8-10.2); NEUT % 79.2 % (42.8-82.8); PLATELET COUNT 126 K/MM3 (134-434); RBC 2.32 M/mm3 (4.00-5.60); RDW 21.2 % (11.9-15.9); WHITE BLOOD COUNT 6.1 K/mm3 (4.0-10.0)
[2017-11-30 07:48] LABS: HEMOGLOBIN 6.9 GM/dL (11.7-16.9)
[2017-11-30 07:56] LABS: CHLORIDE 106 mmol/L (98-107); POTASSIUM 3.6 mmol/L (3.5-5.1); SODIUM 141 mmol/L (136-145)
[2017-11-30 08:12] LABS: ANION GAP 13 (8-16); BLOOD UREA NITROGEN 99 mg/dL (7-18); CO2 22 mmol/L (21-32); CREATININE 4.7 mg/dL (0.7-1.3); GLUCOSE,RANDOM 98 mg/dL (74-106); MAGNESIUM 2.2 mg/dL (1.8-2.4)
[2017-11-30] MEDS ORDERED: PT OWN MED DRAWER 7, Y5N ONE (08:38)
[2017-11-30] MEDS: SODIUM BICARBONATE 650 MG TABLET PO SCH ×2 (09:04→21:34)
[2017-11-30] MEDS: CALCIUM ACETATE 667 MG CAPSULE (FP) PO SCH ×3 (09:04→18:10)
[2017-11-30] MEDS: ISOSORBIDE DINITRATE 10 MG TABLET (FP) PO SCH ×3 (09:04→18:10)
[2017-11-30] MEDS: CLOPIDOGREL BISULFATE 75 MG TABLET (FP) PO SCH (09:04)
[2017-11-30 09:07] LABS: CALCIUM 6.9 mg/dL (8.5-10.1)
[2017-11-30] MEDS: MILRINONE 20MG/100ML IVPB - 20,000 MCG/100 ML ML IVPB SCH (12:16)
--- NOTE | 2017-11-30 12:18 | PN ---
Progress Note (short form) - Note Progress Note: Chief Complaint: sob History of Present Illness: on milrinone feels about the same no cp, palpitations, syncope sob ex cigs Current Medications: Current Medications Generic Name Dose Route Start Last Admin Trade Name Connie PRN Reason Stop Dose Admin Atorvastatin Calcium 40 mg 11/17/17 22:00 11/29/17 21:19 Lipitor - PO 40 mg HS [facility] Administration Calcium Acetate 667 mg 11/29/17 17:30 11/30/17 11:33 Phoslo - PO 667 mg TIDCM [facility] Administration Clopidogrel Bisulfate 75 mg 11/17/17 10:00 11/30/17 09:04 Plavix - PO 75 mg DAILY [facility] Administration Hydralazine HCl 50 mg 11/28/17 14:00 11/30/17 06:45 Apresoline - PO 50 mg TID [facility] Administration Milrinone Lactate/Dextrose 20,000 mcg in 100 mls @ 5.515 mls/hr 11/27/17 12: 00 11/29/17 12:16 Milrinone 20mg/100ml Ivpb - IVPB 0.25 mcg/kg/min TITR [facility] 5.515 mls/hr 0.25 MCG/KG/MIN Administration Insulin Aspart 1 vial 11/16/17 22:00 11/30/17 12:01 Novolog Vial Sliding Scale - SQ 2 unit HS [facility] Administration Protocol Insulin Aspart 1 vial 11/17/17 07:00 11/30/17 06:45 Novolog Vial Sliding Scale - SQ Not Given TIDAC [facility] Protocol Insulin Detemir 10 units 11/26/17 22:00 11/29/17 21:21 Levemir Vial SQ 10 units HS [facility] Administration Isosorbide Dinitrate 10 mg 11/25/17 18:00 11/30/17 09:04 Isordil - PO 10 mg TIDISORDIL [facility] Administration Metoprolol Succinate 50 mg 11/17/17 10:00 11/30/17 09:04 Toprol Xl - PO 50 mg DAILY [facility] Administration Sodium Bicarbonate 650 mg 11/17/17 22:00 11/30/17 09:04 Sodium Bicarbonate - PO 650 mg BID [facility] Administration Tamsulosin HCl 0.4 mg 11/16/17 22:00 11/29/17 21:19 Flomax - PO 0.4 mg HS [facility] Administration - Objective Vital Signs: Vital Signs Temp 98.3 F 11/30/17 08:41 Pulse 70 11/30/17 08:41 Resp 20 11/30/17 09:00 BP 118/44 11/30/17 08:41 Pulse Ox 100 11/30/17 09:00 Intake & Output 11/29/17 11/30/17 11/30/17 23:59 11:59 23:59 Intake Total 910 70 Output Total 780 450 Balance 130 -380 Weight 167 lb 6.4 oz Intake: IV 60 MILRINONE 20MG/100ML IVPB 60 - 20,000 mcg In 100 ml @ 0.25 MCG/KG/MIN 5.515 mls/hr IVPB TITR [facility] Rx#: [id number] IVPB 10 Oral 910 Output: Urine 780 450 Void 780 450 Other: Voiding Method Urinal Urinal Bowel Movement Yes Weight Measurement Method Standing Scale Constitutional: Yes: No Distress, Calm Eyes: No: Sclera Icterus HENT: No: Nasal Congestion Cardiovascular: Yes: Regular Rate and Rhythm, JVD elevated, S1, S2,. No: Gallop , Murmur Respiratory: Yes: diminshed bases No: Accessory Muscle Use, Rales, Wheezes Gastrointestinal: Yes: Normal Bowel Sounds, Soft. No: Tenderness Extremities: No: Cold Edema: no Integumentary: No: Jaundice Neurological: Yes: Alert, Oriented (x3) Psychiatric: No: Agitated Labs: Laboratory Last Values WBC 6.1 K/mm3 (4.0-10.0) 11/30/17 06:50 RBC 2.32 M/mm3 (4.00-5.60) L 11/30/17 06:50 Hgb 6.9 GM/dL (11.7-16.9) L* 11/30/17 06:50 Hct 21.2 % (35.4-49) L 11/30/17 06:50 MCV 91.4 fl (80-96) 11/30/17 06:50 MCH 29.7 pg (25.7-33.7) 11/30/17 06:50 MCHC 32.5 g/dl (32.0-35.9) 11/30/17 06:50 RDW 21.2 % (11.9-15.9) H 11/30/17 06:50 Plt Count 126 K/MM3 (134-434) L 11/30/17 06:50 MPV 9.9 fl (7.5-11.1) 11/30/17 06:50 Neutrophils % 79.2 % (42.8-82.8) 11/30/17 06:50 Lymphocytes % 7.6 % (8-40) L 11/30/17 06:50 Monocytes % 11.4 % (3.8-10.2) H 11/30/17 06:50 Eosinophils % 1.0 % (0-4.5) 11/30/17 06:50 Basophils % 0.8 % (0-2.0) 11/30/17 06:50 Anisocytosis 3+ 11/27/17 06:00 Microcytosis Few 11/20/17 05:51 Macrocytosis Few 11/20/17 05:51 Ovalocytes Few 11/20/17 05:51 Acanthocytes (Spur) 2+ 11/20/17 05:51 PT with INR 11.20 SEC (9.98-11.88) 11/16/17 16:00 INR 0.99 (0.82-1.09) 11/16/17 16:00 Anticoagulation Therapy No Result Required. 11/16/17 18:50 Puncture Site Right radial 11/17/17 12:19 ABG pH 7.25 (7.35-7.45) L D 11/17/17 12:19 ABG pCO2 at Pt Temp 42.4 mmHg (35-45) 11/17/17 12:19 ABG pO2 at Pt Temp 77.3 mmHg (80-100) L 11/17/17 12:19 ABG HCO3 18.0 meq/L (22-26) L 11/17/17 12:19 ABG O2 Sat (Measured) 95.0 % (90-98.9) 11/17/17 12:19 ABG O2 Content 11.9 % vol (15-22) L 11/17/17 12:19 ABG Base Excess -8.2 meq/l (-2-2) L 11/17/17 12:19 Frank Test Positive 11/17/17 12:19 VBG pH 7.12 (7.32-7.42) L* 11/16/17 16:00 POC VBG pCO2 56.3 mmHg (38-52) H 11/16/17 16:00 POC VBG pO2 89.4 mmHg (28-48) H 11/16/17 16:00 Mixed VBG HCO3 17.8 meq/L (19-25) L 11/16/17 16:00 O2 Delivery Device No Result Required. 11/16/17 18:50 Oxygen Flow Rate Yes 11/17/17 12:19 Vent Mode No Result Required. 11/16/17 18:50 Vent Rate No Result Required. 11/16/17 18:50 Mechanical Rate No Result Required. 11/16/17 18:50 Pressure Support Vent No Result Required. 11/16/17 18:50 Sodium 141 mmol/L (136-145) 11/30/17 06:50 Potassium 3.6 mmol/L (3.5-5.1) 11/30/17 06:50 Chloride 106 mmol/L (98-107) 11/30/17 06:50 Carbon Dioxide 22 mmol/L (21-32) 11/30/17 06:50 Anion Gap 13 (8-16) 11/30/17 06:50 BUN 99 mg/dL (7-18) H 11/30/17 06:50 Creatinine 4.7 mg/dL (0.7-1.3) H 11/30/17 06:50 Creat Clearance w eGFR 13.40 (>60) 11/27/17 06:00 POC Glucometer 156 UNITS (80-120) 11/30/17 11:33 Random Glucose 98 mg/dL (74-106) D 11/30/17 06:50 Hemoglobin A1c % 10.6 % (4.8-6.0) H D 11/21/17 06:25 Lactic Acid 1.1 mmol/L (0.0-2.0) 11/16/17 16:00 Calcium 6.9 mg/dL (8.5-10.1) L* 11/30/17 06:50 Phosphorus 7.0 mg/dL (2.5-4.9) H 11/30/17 06:50 Magnesium 2.2 mg/dL (1.8-2.4) 11/30/17 06:50 Iron 29 ug/dL (38-169) L 11/21/17 06:25 TIBC 223 ug/dL (250-450) L 11/21/17 06:25 Iron Saturation 13 % (15-55) L 11/21/17 06:25 Ferritin 43.506 ng/ml (16.4-293.9) 11/21/17 06:25 Total Bilirubin 0.4 mg/dL (0.2-1.0) 11/27/17 06:00 Direct Bilirubin 0.2 mg/dL (0.0-0.2) D 11/26/17 06:00 AST 38 U/L (15-37) H D 11/27/17 06:00 ALT 47 U/L (12-78) 11/27/17 06:00 Alkaline Phosphatase 160 U/L (45-117) H D 11/27/17 06:00 Creatine Kinase 54 IU/L (39-308) 11/17/17 05:55 Troponin I 0.06 ng/ml (0.00-0.05) H D 11/17/17 05:55 B-Natriuretic Peptide 83135.11 pg/ml (5-125) H 11/16/17 16:00 Total Protein 5.5 g/dl (6.4-8.2) L 11/27/17 06:00 Albumin 2.3 g/dl (3.4-5.0) L 11/27/17 06:00 Urine Color Ltyellow 11/16/17 21:30 Urine Appearance Cloudy 11/16/17 21:30 Urine pH 5.0 (5.0-8.0) 11/16/17 21:30 Ur Specific Atkinson 1.012 (1.001-1.035) 11/16/17 21:30 Urine Protein 2+ (NEGATIVE) H 11/16/17 21:30 Urine Glucose (UA) 2+ (NEGATIVE) H 11/16/17 21:30 Urine Ketones Negative (NEGATIVE) 11/16/17 21:30 Urine Blood 1+ (NEGATIVE) H 11/16/17 21:30 Urine Nitrite Negative (NEGATIVE) 11/16/17 21:30 Urine Bilirubin Negative (<2.0 mg/dL) 11/16/17 21:30 Urine Urobilinogen Negative mg/dL (0.2-1.0) 11/16/17 21:30 Ur Leukocyte Esterase 1+ (NEGATIVE) H 11/16/17 21:30 Urine WBC (Auto) 20 /hpf (3-5) 11/16/17 21:30 Urine RBC (Auto) 3 /hpf (0-3) 11/16/17 21:30 Ur Epithelial Cells Rare /HPF (FEW) 11/16/17 21:30 Urine Bacteria Rare /hpf (NONE SEEN) 11/16/17 21:30 Urine Mucus Rare 11/16/17 21:30 U Random Total Protein 258 mg/dl (5-11.9) H 11/17/17 18:00 Ur Random Urea Nitrogn 324 mg/dL 11/17/17 18:00 Urine Creatinine 54.9 mg/dL (20-370) 11/17/17 18:00 SHAKIR Screen Negative (.) 11/21/17 06:25 RPR Titer Nonreactive (NONREACTIVE) 11/21/17 06:25 Hepatitis A IgM Ab Negative (Negative) 11/21/17 06:25 Hep Bs Antigen Negative (Negative) 11/21/17 06:25 Hep B Core IgM Ab Negative (Negative) 11/21/17 06:25 Hepatitis C Antibody 0.1 s/co ratio (0.0-0.9) 11/21/17 06:25 HIV 1&2 Antibody Screen Negative 11/20/17 18:20 HIV P24 Antigen Negative 11/20/17 18:20 ecg vpaced, underlying appears aflutter echo 10/2017: moderate concentric lvh. 1+ lve. mod-sev decreased LV sys fn, global. nl RV size. mod decreased RV sys fn. mod mitra. mod-sev mac. mod mr. mod-sev tr. rvsp > 60. trivial effusion. echo 11/2016: low nl lvef, mild lvh, nl rv, mitra, mod mr/tr, mod phtn echo 02/2015: mild lv dil, nl lvef, basal post-lat HK, nl rv size/fcn, severe biatrial dil, sev mr, sev tr, sev phtn, mod pr echo 11/2014: nl lv/rv, mod-sev mr, sev tr, sev phtn renal u/s: chronic medical renal disease. trace free fluid in upper abdomen. bilateral pleural effusions. see emr for detailed findings. mibi 11/2016: no ischemia tele: v-paced CXR: persistent R > L effusion, pulm edema findings CT chest not reported--images reviewed with dr boyce: large R, small-moderate L pleural effusions, fluid in fissure areas of atx vs congestion vs infiltrate a/p: 67 m hx cad s/p nstemi/pci (11/2014 pt had chf with +trops so sent for cath [facility] and had rota and GIOVANNI to pLAD, residual dLCx and ramus 50-60% both), dchf, htn, hld, dm, ckd, afib on coumadin, cva, ppm (biotronik 05/2012), remote AAA repair, pad s/p left fem stent 2015 and left toe amp here with sob. acute systolic chf: - echo here shows new systolic cardiomyopathy. will need to consider stress vs. cath once euvolemic (inpatient vs. 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 - ? etiology: r/o multivessel CAD as above. no tachyarrhythmia burden here. ? RV apical pacing cardiomyopathy--would have low threshold to consider [employer]SPORT CON[employer]CTOR upgrade. defer to dr liriano (outpt cardio) once HF is better optimized. -has been receiving doses of lasix 80 iv qd to bid here, with progressively worsening renal fxn, no improvement in radiographic findings. wt currently unchanged vs initial wt here (162). ? dry wt. office dry wt 09/07 visit 154 lbs -given CT chest appearance clearly c/w chf, pt needs inotrope-assisted diuresis to improve efficacy and improve renal perfusion. started milrinone 11/27. -albumin 2.3, doubt significant 3rd-spacing component -cont low dose nitrates as doing, for cardiorenal syndrome -rec increase metoprolol to target syst CHF doses later, once fluid status improved -hold JONO/ARB/spirono due to severe KELLI - 11/28: con't milrinone. uptitrate afterload reduction further. increase hydral to 50 bid. con't isordil. Will redose lasix 100 mg IV x 1 with additional metolazone. If repeat bmp overall stable this evening, will redose lasix 100 mg IV x 1 again. -11/29: cont milrinone, will give lasix 100 iv x1 today -11/30: after several days of milrinone and high dose lasix pt is still not diuresing well. Cr is also worsening. Likely esrd contributing. May need HD for volume management. hold lasix today given worse cr and hgb 6s today. kelli on ckd: -chf optimization as above VTach: -K and Mg optimized (aggressive targets) -observe tele on milrinone -cont BB as doing cad/pci: -stable, no cp/angina/acs -preserved lvef echo 2017 and no ischemia on 2017 mibi, but with known cad/ residual disease now with new cardiomypathy. ischemic eval as mentioned above. -cont home bb, statin, plavix htn: -cont bb, hydral hld: -cont statin afib,aflutter,atach: -rate controlled as pt has complete heart block with ppm -Has hx of cva and was on AC and dapt previously before a prior GIB, and aortoenteric fistula. was followed by vascular at [facility], now by Dr. Ren. DAPT was deemed safe to resume in 2016 after LE stent. For now, cont plavix monotherapy. ppm (biotronik for CHB): -Normal fcn on recent office check, next routine check planned 11/2017 remote aaa repair/pad s/p multiple interventions and toe amputations : -stable, continue bp control. plavix, statin anemia: -hgb slowly drifting down, would give prbcs today
[2017-11-30] MEDS ORDERED: FUROSEMIDE 100 MG/10 ML INJECTABLE VIAL IVPB ONE (14:10)
[2017-11-30] MEDS ORDERED: IRON SUCROSE INJECTION 100 MG in SODIUM CHLORIDE 95 ML IVPB ONE ×2 (14:30→17:45)
--- NOTE | 2017-11-30 14:53 | PN ---
Progress Note, Physician History of Present Illness: patient without any complaints no new issues says he is doing well thin - Current Medication List Current Medications: Active Medications Atorvastatin Calcium (Lipitor -) 40 mg PO HS [facility] Last Admin: 11/29/17 21:19 Dose: 40 mg Calcium Acetate (Phoslo -) 667 mg PO TIDCM [facility] Last Admin: 11/30/17 11:33 Dose: 667 mg Clopidogrel Bisulfate (Plavix -) 75 mg PO DAILY [facility] Last Admin: 11/30/17 09:04 Dose: 75 mg Epoetin Romeo (Procrit -) 20,000 unit SQ ONCE ONE Stop: 11/30/17 16:01 Hydralazine HCl (Apresoline -) 50 mg PO TID [facility] Last Admin: 11/30/17 13:56 Dose: 50 mg Milrinone Lactate/Dextrose (Milrinone 20mg/100ml Ivpb -) 20,000 mcg in 100 mls @ 5.515 mls/hr IVPB TITR [facility] PRN Reason: 0.25 MCG/KG/MIN Last Admin: 11/30/17 12:16 Dose: 0.25 mcg/kg/min, 5.515 mls/hr Furosemide 100 mg/ Sodium (Chloride) 50 mls @ 5 mls/hr IVPB TITR [facility]; 10 MG/HR PRN Reason: Protocol Iron Sucrose 100 mg/ Sodium (Chloride) 100 mls @ 200 mls/hr IVPB ONCE ONE Stop: 11/30/17 14:59 Insulin Aspart (Novolog Vial Sliding Scale -) 1 vial SQ HS [facility] PRN Reason: Protocol Last Admin: 11/30/17 12:01 Dose: 2 unit Insulin Aspart (Novolog Vial Sliding Scale -) 1 vial SQ TIDAC [facility] PRN Reason: Protocol Last Admin: 11/30/17 12:00 Dose: 2 units Insulin Detemir (Levemir Vial) 10 units SQ HS [facility] Last Admin: 11/29/17 21:21 Dose: 10 units Isosorbide Dinitrate (Isordil -) 10 mg PO T[facility]IS[facility] Last Admin: 11/30/17 12:18 Dose: 10 mg Metoprolol Succinate (Toprol Xl -) 50 mg PO DAILY [facility] Last Admin: 11/30/17 09:04 Dose: 50 mg Sodium Bicarbonate (Sodium Bicarbonate -) 650 mg PO BID [facility] Last Admin: 11/30/17 09:04 Dose: 650 mg Tamsulosin HCl (Flomax -) 0.4 mg PO HS [facility] Last Admin: 11/29/17 21:19 Dose: 0.4 mg - Objective Vital Signs: Vital Signs Temperature 9834 F H 11/30/17 13:59 Pulse Rate 70 11/30/17 13:59 Respiratory Rate 22 11/30/17 13:59 Blood Pressure 115/48 11/30/17 13:59 O2 Sat by Pulse Oximetry (%) 100 11/30/17 09:00 Constitutional: Yes: No Distress, Calm Neck: Yes: Supple Cardiovascular: Yes: S1, S2 Respiratory: Yes: Regular, CTA Bilaterally Gastrointestinal: Yes: Normal Bowel Sounds, Soft Musculoskeletal: Yes: WNL Extremities: Yes: WNL Neurological: Yes: Alert, Oriented Psychiatric: Yes: Alert, Oriented Labs: CBC, BMP 11/30/17 06:50 11/30/17 06:50 INR, PTT INR 0.99 (0.82-1.09) 11/16/17 16:00 - ....Imaging Chest X-ray: Report Reviewed, Image Reviewed Assessment/Plan Problem List - Problems (1) Acute CHF Code(s): I50.9 - HEART FAILURE, UNSPECIFIED Qualifiers: Heart failure type: diastolic Qualified Code(s): I50.31 - Acute diastolic ( congestive) heart failure (2) Acute on chronic renal failure Code(s): N17.9 - ACUTE KIDNEY FAILURE, UNSPECIFIED; N18.9 - CHRONIC KIDNEY DISEASE, UNSPECIFIED Qualifiers: Acute renal failure type: unspecified Chronic kidney disease stage: unspecified stage Qualified Code(s): N17.9 - Acute kidney failure, unspecified ; N18.9 - Chronic kidney disease, unspecified; N18.9 - Chronic kidney disease, unspecified (3) Hypoxia Code(s): R09.02 - HYPOXEMIA (4) Atrial fibrillation Code(s): I48.91 - UNSPECIFIED ATRIAL FIBRILLATION Qualifiers: Atrial fibrillation type: paroxysmal Qualified Code(s): I48.0 - Paroxysmal atrial fibrillation (5) Diabetes Code(s): E11.9 - TYPE 2 DIABETES MELLITUS WITHOUT COMPLICATIONS Qualifiers: Diabetes mellitus type: type 2 Diabetes mellitus complication status: with circulatory complication (6) Hypertension Code(s): I10 - ESSENTIAL (PRIMARY) HYPERTENSION Qualifiers: Hypertension type: essential hypertension Qualified Code(s): I10 - Essential (primary) hypertension (7) UTI complicated plan off of abx on drip milnironone continue as per cardio rest as per the team
[2017-11-30] MEDS ORDERED: FUROSEMIDE INJECTION 100 MG in SODIUM CHLORIDE 40 ML IVPB SCH (15:00)
--- NOTE | 2017-11-30 15:14 | PN ---
Progress Note (short form) - Note Progress Note: Renal follow up for KELLI on CKD Pt seen and examined at the bedside awake and alert has sob but reports being a little better no CP, abd pain making urine but not a large amount Vital Signs Temperature 9834 F H 11/30/17 13:59 Pulse Rate 70 11/30/17 13:59 Respiratory Rate 22 11/30/17 13:59 Blood Pressure 115/48 11/30/17 13:59 O2 Sat by Pulse Oximetry (%) 100 11/30/17 09:00 Intake & Output 11/27/17 11/28/17 11/29/17 11/30/17 23:59 23:59 23:59 23:59 Intake Total 595 1316 1246 70 Output Total 800 1075 1205 450 Balance -205 241 41 -380 Weight 74.616 kg 75.41 kg 75.931 kg NAD, awake and alert RRR Dec BS, no rales Trace LE edema CBC, BMP 11/30/17 06:50 11/30/17 06:50 Current Medications Atorvastatin Calcium (Lipitor -) 40 mg PO HS DAGO Last Admin: 11/29/17 21:19 Dose: 40 mg Calcium Acetate (Phoslo -) 667 mg PO TIDCM [facility] Last Admin: 11/30/17 11:33 Dose: 667 mg Clopidogrel Bisulfate (Plavix -) 75 mg PO DAILY [facility] Last Admin: 11/30/17 09:04 Dose: 75 mg Epoetin Romeo (Procrit -) 20,000 unit SQ ONCE ONE Stop: 11/30/17 16:01 Hydralazine HCl (Apresoline -) 50 mg PO TID [facility] Last Admin: 11/30/17 13:56 Dose: 50 mg Milrinone Lactate/Dextrose (Milrinone 20mg/100ml Ivpb -) 20,000 mcg in 100 mls @ 5.515 mls/hr IVPB TITR DAGO PRN Reason: 0.25 MCG/KG/MIN Last Admin: 11/30/17 12:16 Dose: 0.25 mcg/kg/min, 5.515 mls/hr Furosemide 100 mg/ Sodium (Chloride) 50 mls @ 5 mls/hr IVPB TITR DAGO; 10 MG/HR PRN Reason: Protocol Insulin Aspart (Novolog Vial Sliding Scale -) 1 vial SQ HS DAGO PRN Reason: Protocol Last Admin: 11/30/17 12:01 Dose: 2 unit Insulin Aspart (Novolog Vial Sliding Scale -) 1 vial SQ TIDAC [facility] PRN Reason: Protocol Last Admin: 11/30/17 12:00 Dose: 2 units Insulin Detemir (Levemir Vial) 10 units SQ HS [facility] Last Admin: 11/29/17 21:21 Dose: 10 units Isosorbide Dinitrate (Isordil -) 10 mg PO TIDISORDIL [facility] Last Admin: 11/30/17 12:18 Dose: 10 mg Metoprolol Succinate (Toprol Xl -) 50 mg PO DAILY [facility] Last Admin: 11/30/17 09:04 Dose: 50 mg Sodium Bicarbonate (Sodium Bicarbonate -) 650 mg PO BID [facility] Last Admin: 11/30/17 09:04 Dose: 650 mg Tamsulosin HCl (Flomax -) 0.4 mg PO HS [facility] Last Admin: 11/29/17 21:19 Dose: 0.4 mg 67 year old gentleman with PMhx of CKD Stage 3, CHF, AFib, Hypertension who presented with weakness and sob and found to have CHF exacerbation with KELLI #KELLI on CKD vs. progressive CKD #Nephrotic Proteinuira #SOB secondary to CHF exacerbation Weights unchanged despite high dose bolus Lasix and metolazone Will check portable CXR today to acess b/l effusions Give Lasix 120mg IV followerd by Lasix gtt at 10mg per hour low salt diet trend daily weights discussed possibly needing dialysis pt pt is not responsive to diuretics Continue Sodium bicarb and flomax Beau Iraheta DO
--- NOTE | 2017-11-30 15:30 | PN ---
Progress Note (short form) - Note Progress Note: Breathing feels a little better. 100% saturation on 3 L NC. No acute events overnight. Intake & Output 11/27/17 11/28/17 11/29/17 11/30/17 23:59 23:59 23:59 23:59 Intake Total 595 1316 1246 70 Output Total 800 1075 1205 450 Balance -205 241 41 -380 Weight 164 lb 8 oz 166 lb 4 oz 167 lb 6.4 oz Last Vital Signs Temp Pulse Resp BP Pulse Ox 9834 F H 70 22 115/48 100 11/30/17 13:59 11/30/17 13:59 11/30/17 13:59 11/30/17 13:59 11/30/17 09:00 Active Medications Atorvastatin Calcium (Lipitor -) 40 mg PO HS [facility] Last Admin: 11/29/17 21:19 Dose: 40 mg Calcium Acetate (Phoslo -) 667 mg PO TIDCM [facility] Last Admin: 11/30/17 11:33 Dose: 667 mg Clopidogrel Bisulfate (Plavix -) 75 mg PO DAILY [facility] Last Admin: 11/30/17 09:04 Dose: 75 mg Epoetin Romeo (Procrit -) 20,000 unit SQ ONCE ONE Stop: 11/30/17 16:01 Hydralazine HCl (Apresoline -) 50 mg PO TID [facility] Last Admin: 11/30/17 13:56 Dose: 50 mg Milrinone Lactate/Dextrose (Milrinone 20mg/100ml Ivpb -) 20,000 mcg in 100 mls @ 5.515 mls/hr IVPB TITR [facility]AGO PRN Reason: 0.25 MCG/KG/MIN Last Admin: 11/30/17 12:16 Dose: 0.25 mcg/kg/min, 5.515 mls/hr Furosemide 100 mg/ Sodium (Chloride) 50 mls @ 5 mls/hr IVPB TITR DAGO; 10 MG/HR PRN Reason: Protocol Insulin Aspart (Novolog Vial Sliding Scale -) 1 vial SQ HS DAGO PRN Reason: Protocol Last Admin: 11/30/17 12:01 Dose: 2 unit Insulin Aspart (Novolog Vial Sliding Scale -) 1 vial SQ TIDAC [facility] PRN Reason: Protocol Last Admin: 11/30/17 12:00 Dose: 2 units Insulin Detemir (Levemir Vial) 10 units SQ HS [facility] Last Admin: 11/29/17 21:21 Dose: 10 units Isosorbide Dinitrate (Isordil -) 10 mg PO TIDISORDIL [facility] Last Admin: 11/30/17 12:18 Dose: 10 mg Metoprolol Succinate (Toprol Xl -) 50 mg PO DAILY [facility] Last Admin: 11/30/17 09:04 Dose: 50 mg Sodium Bicarbonate (Sodium Bicarbonate -) 650 mg PO BID [facility] Last Admin: 11/30/17 09:04 Dose: 650 mg Tamsulosin HCl (Flomax -) 0.4 mg PO HS [facility] Last Admin: 11/29/17 21:19 Dose: 0.4 mg Constitutional: Yes: NAD Eyes: Yes: WNL HENT: Yes: WNL Neck: Yes: WNL Cardiovascular: Yes: Pulse Irregular, S1, S2 Respiratory: Yes: Diminished at the bases Gastrointestinal: Yes: Normal Bowel Sounds, Soft Extremities: Yes: WNL Edema: No Labs: Laboratory Results - last 24 hr 11/29/17 11/29/17 11/30/17 16:56 21:01 05:57 WBC RBC Hgb Hct MCV MCH MCHC RDW Plt Count MPV Neutrophils % Lymphocytes % Monocytes % Eosinophils % Basophils % Sodium Potassium Chloride Carbon Dioxide Anion Gap BUN Creatinine POC Glucometer 217 269 98 Random Glucose Calcium Phosphorus Magnesium 11/30/17 11/30/17 11/30/17 06:50 06:50 11:33 WBC 6.1 RBC 2.32 L Hgb 6.9 L* Hct 21.2 L MCV 91.4 MCH 29.7 MCHC 32.5 RDW 21.2 H Plt Count 126 L MPV 9.9 Neutrophils % 79.2 Lymphocytes % 7.6 L Monocytes % 11.4 H Eosinophils % 1.0 Basophils % 0.8 Sodium 141 Potassium 3.6 Chloride 106 Carbon Dioxide 22 Anion Gap 13 BUN 99 H Creatinine 4.7 H POC Glucometer 156 Random Glucose 98 D Calcium 6.9 L* Phosphorus 7.0 H Magnesium 2.2 Problem List - Problems (1) Acute CHF Code(s): I50.9 - HEART FAILURE, UNSPECIFIED Qualifiers: Heart failure type: diastolic Qualified Code(s): I50.31 - Acute diastolic ( congestive) heart failure (2) Acute on chronic renal failure Code(s): N17.9 - ACUTE KIDNEY FAILURE, UNSPECIFIED; N18.9 - CHRONIC KIDNEY DISEASE, UNSPECIFIED Qualifiers: Acute renal failure type: unspecified Chronic kidney disease stage: unspecified stage Qualified Code(s): N17.9 - Acute kidney failure, unspecified ; N18.9 - Chronic kidney disease, unspecified; N18.9 - Chronic kidney disease, unspecified (3) Hypoxia Code(s): R09.02 - HYPOXEMIA (4) Atrial fibrillation Code(s): I48.91 - UNSPECIFIED ATRIAL FIBRILLATION Qualifiers: Atrial fibrillation type: paroxysmal Qualified Code(s): I48.0 - Paroxysmal atrial fibrillation (5) Congestive heart failure Code(s): I50.9 - HEART FAILURE, UNSPECIFIED Qualifiers: Qualified Code(s): I50.22 - Chronic systolic (congestive) heart failure (6) Coronary artery disease Code(s): I25.10 - ATHSCL HEART DISEASE OF [place] CORONARY ARTERY W/O ANG PCTRS Qualifiers: Coronary Disease-Associated Artery/Lesion type: [place] coronary artery [place] vs. transplanted heart: [place] heart Associated angina: without angina pectoris (7) Diabetes Code(s): E11.9 - TYPE 2 DIABETES MELLITUS WITHOUT COMPLICATIONS Qualifiers: Diabetes mellitus type: type 2 Diabetes mellitus complication status: with circulatory complication (8) NSTEMI (non-ST elevated myocardial infarction) Code(s): I21.4 - NON-ST ELEVATION (NSTEMI) MYOCARDIAL INFARCTION (9) Peripheral vascular disease Code(s): I73.9 - PERIPHERAL VASCULAR DISEASE, UNSPECIFIED Assessment/Plan IMP DYSPNEA SECONDARY TO DECOMPENSATED CHF IMPROVED ASHD S/P STENT DIASTOLIC HF R PLEURAL EFFUSION PULMONARY HTN AFIB S/P PPM PULMONARY HTN DM ACUTE ON CHRONIC KIDNEY DISEASE AAA S/P REPAIR PVD HTN PLAN: O2 NEEDED DAILY WTS PLAVIX MILRINONE / LAIX JEFFREY Hogan
[2017-11-30] MEDS ORDERED: EPOETIN ALFA 20,000 UNIT/1 ML VIAL SQ ONE (16:00)
--- NOTE | 2017-11-30 16:42 | PN ---
Progress Note, Physician Chief Complaint: Mr Howard says he feels unchanged. No cp, sob, n/v. - Current Medication List Current Medications: Active Medications Atorvastatin Calcium (Lipitor -) 40 mg PO HS [facility] Last Admin: 11/29/17 21:19 Dose: 40 mg Calcium Acetate (Phoslo -) 667 mg PO TIDCM [facility] Last Admin: 11/30/17 11:33 Dose: 667 mg Clopidogrel Bisulfate (Plavix -) 75 mg PO DAILY [facility] Last Admin: 11/30/17 09:04 Dose: 75 mg Hydralazine HCl (Apresoline -) 50 mg PO TID [facility] Last Admin: 11/30/17 13:56 Dose: 50 mg Milrinone Lactate/Dextrose (Milrinone 20mg/100ml Ivpb -) 20,000 mcg in 100 mls @ 5.515 mls/hr IVPB TITR DAGO PRN Reason: 0.25 MCG/KG/MIN Last Admin: 11/30/17 12:16 Dose: 0.25 mcg/kg/min, 5.515 mls/hr Furosemide 100 mg/ Sodium (Chloride) 50 mls @ 5 mls/hr IVPB TITR DAGO; 10 MG/HR PRN Reason: Protocol Insulin Aspart (Novolog Vial Sliding Scale -) 1 vial SQ HS [facility] PRN Reason: Protocol Last Admin: 11/30/17 12:01 Dose: 2 unit Insulin Aspart (Novolog Vial Sliding Scale -) 1 vial SQ TIDAC [facility] PRN Reason: Protocol Last Admin: 11/30/17 12:00 Dose: 2 units Insulin Detemir (Levemir Vial) 10 units SQ HS [facility] Last Admin: 11/29/17 21:21 Dose: 10 units Isosorbide Dinitrate (Isordil -) 10 mg PO TIDISORDIL [facility] Last Admin: 11/30/17 12:18 Dose: 10 mg Metoprolol Succinate (Toprol Xl -) 50 mg PO DAILY [facility] Last Admin: 11/30/17 09:04 Dose: 50 mg Sodium Bicarbonate (Sodium Bicarbonate -) 650 mg PO BID [facility] Last Admin: 11/30/17 09:04 Dose: 650 mg Tamsulosin HCl (Flomax -) 0.4 mg PO HS [facility] Last Admin: 11/29/17 21:19 Dose: 0.4 mg - Objective Vital Signs: Vital Signs Temperature 5445.5 C H 11/30/17 13:59 Pulse Rate 70 11/30/17 13:59 Respiratory Rate 22 11/30/17 13:59 Blood Pressure 115/48 11/30/17 13:59 O2 Sat by Pulse Oximetry (%) 100 11/30/17 09:00 Constitutional: Yes: Well Nourished, No Distress, Calm Cardiovascular: Yes: Pulse Irregular. No: Bradycardia, Gallop, Murmur, Rub Respiratory: Yes: Regular, On Nasal O2, Rhonchi. No: CTA Bilaterally, Rales, Wheezes Gastrointestinal: Yes: Normal Bowel Sounds, Soft. No: Distention, Tenderness Extremities: Yes: WNL Edema: No Labs: CBC, BMP 11/30/17 06:50 11/30/17 06:50 INR, PTT INR 0.99 (0.82-1.09) 11/16/17 16:00 Problem List - Problems (1) Acute CHF Code(s): I50.9 - HEART FAILURE, UNSPECIFIED Qualifiers: Heart failure type: diastolic Qualified Code(s): I50.31 - Acute diastolic ( congestive) heart failure (2) Acute on chronic renal failure Code(s): N17.9 - ACUTE KIDNEY FAILURE, UNSPECIFIED; N18.9 - CHRONIC KIDNEY DISEASE, UNSPECIFIED Qualifiers: Acute renal failure type: unspecified Chronic kidney disease stage: unspecified stage Qualified Code(s): N17.9 - Acute kidney failure, unspecified ; N18.9 - Chronic kidney disease, unspecified; N18.9 - Chronic kidney disease, unspecified (3) Hypoxia Code(s): R09.02 - HYPOXEMIA (4) Atrial fibrillation Code(s): I48.91 - UNSPECIFIED ATRIAL FIBRILLATION Qualifiers: Atrial fibrillation type: paroxysmal Qualified Code(s): I48.0 - Paroxysmal atrial fibrillation (5) Diabetes Code(s): E11.9 - TYPE 2 DIABETES MELLITUS WITHOUT COMPLICATIONS Qualifiers: Diabetes mellitus type: type 2 Diabetes mellitus complication status: with circulatory complication (6) Hypertension Code(s): I10 - ESSENTIAL (PRIMARY) HYPERTENSION Qualifiers: Hypertension type: essential hypertension Qualified Code(s): I10 - Essential (primary) hypertension Assessment/Plan (1) Acute CHF Assessment/Plan: -case d/w cardiology and nephrology -continue milrinone -will receive lasix 120mg IV x1 and then on lasix gtt -may need HD for diuresis Code(s): I50.9 - HEART FAILURE, UNSPECIFIED Qualifiers: Heart failure type: diastolic Qualified Code(s): I50.31 - Acute diastolic ( congestive) heart failure (2) Acute on chronic renal failure Assessment/Plan: -as above -trial of high dose lasix and lasix gtt -may need HD Code(s): N17.9 - ACUTE KIDNEY FAILURE, UNSPECIFIED; N18.9 - CHRONIC KIDNEY DISEASE, UNSPECIFIED Qualifiers: Acute renal failure type: unspecified Chronic kidney disease stage: unspecified stage Qualified Code(s): N17.9 - Acute kidney failure, unspecified ; N18.9 - Chronic kidney disease, unspecified; N18.9 - Chronic kidney disease, unspecified (3) Hypoxia Assessment/Plan: -resolved Code(s): R09.02 - HYPOXEMIA (4) Atrial fibrillation Assessment/Plan: -rate controlled -cardiology following -continue plavix, not on AC Code(s): I48.91 - UNSPECIFIED ATRIAL FIBRILLATION Qualifiers: Atrial fibrillation type: paroxysmal Qualified Code(s): I48.0 - Paroxysmal atrial fibrillation (5) Diabetes Assessment/Plan: -diabetic diet and SSI Code(s): E11.9 - TYPE 2 DIABETES MELLITUS WITHOUT COMPLICATIONS Qualifiers: Diabetes mellitus type: type 2 Diabetes mellitus complication status: with circulatory complication (6) Hypertension Assessment/Plan: -well controlled -continue toprol xl Code(s): I10 - ESSENTIAL (PRIMARY) HYPERTENSION Qualifiers: Hypertension type: essential hypertension Qualified Code(s): I10 - Essential (primary) hypertension (7) UTI -finished full course zosyn
[2017-11-30] MEDS: INSULIN (LEVEMIR) 100 UNITS/ML UNITS SQ SCH (21:33)
[2017-11-30] MEDS: ATORVASTATIN CA 40 MG TABLET (FP) PO SCH (21:34)
[2017-11-30] MEDS: TAMSULOSIN HCL 0.4 MG CAP.ER.24H (FP) PO SCH (21:34)
[2017-11-30] MEDS ORDERED: INSULIN (LEVEMIR) 100 UNITS/ML UNITS SQ ONE (21:49)
[2017-12-01] MEDS: INSULIN SLIDING SCALE (NOVOLOG) 1 VIAL SQ SCH ×4 (06:30→23:33)
[2017-12-01] MEDS: hydrALAZINE HCL 50 MG TABLET (FP) PO SCH ×3 (06:31→23:32)
[2017-12-01 07:40] LABS: EOS % 0.6 % (0-4.5); HEMATOCRIT 21.1 % (35.4-49); LYMPH % 8.4 % (8-40); MCH 29.6 pg (25.7-33.7); MCHC 32.3 g/dl (32.0-35.9); MEAN CELL VOLUME 91.6 fl (80-96); MEAN PLT VOLUME 9.7 fl (7.5-11.1); MONO % 10.7 % (3.8-10.2); NEUT % 79.3 % (42.8-82.8); PLATELET COUNT 133 K/MM3 (134-434); WHITE BLOOD COUNT 5.5 K/mm3 (4.0-10.0)
[2017-12-01 07:52] LABS: ANION GAP 15 (8-16); BLOOD UREA NITROGEN 100 mg/dL (7-18); CALCIUM 7.1 mg/dL (8.5-10.1); CHLORIDE 106 mmol/L (98-107); CO2 22 mmol/L (21-32); GLUCOSE,RANDOM 115 mg/dL (74-106); MAGNESIUM 2.6 mg/dL (1.8-2.4); POTASSIUM 3.3 mmol/L (3.5-5.1); SODIUM 143 mmol/L (136-145)
[2017-12-01] MEDS: ISOSORBIDE DINITRATE 10 MG TABLET (FP) PO SCH ×3 (07:54→16:59)
[2017-12-01] MEDS: CALCIUM ACETATE 667 MG CAPSULE (FP) PO SCH ×3 (07:54→16:59)
[2017-12-01 07:56] LABS: CREATININE 5.1 mg/dL (0.7-1.3); PHOSPHOROUS 7.2 mg/dL (2.5-4.9)
[2017-12-01 08:26] LABS: HEMOGLOBIN 6.8 GM/dL (11.7-16.9)
[2017-12-01] MEDS: SODIUM BICARBONATE 650 MG TABLET PO SCH ×2 (09:41→23:40)
[2017-12-01] MEDS: CLOPIDOGREL BISULFATE 75 MG TABLET (FP) PO SCH (09:41)
[2017-12-01] MEDS ORDERED: IRON SUCROSE INJECTION 100 MG in SODIUM CHLORIDE 95 ML IVPB ONE (09:46)
--- NOTE | 2017-12-01 11:20 | PN ---
Physical Exam: SUBJECTIVE: Patient seen and examined. He says he still feels a little SOB. OBJECTIVE: Vital Signs Period Temp Pulse Resp BP Sys/Lauren Pulse Ox Last 24 Hr 97.6 F-9834 F 69-70 18-22 110-115/44-54 95-96 GENERAL: The patient is awake, alert, and in no acute distress. LUNGS: Breath sounds equal, clear to auscultation bilaterally, no wheezes, no crackles, no accessory muscle use. HEART: Regular rate and rhythm, S1, S2 without murmur, rub or gallop. ABDOMEN: Soft, nontender, nondistended, normoactive bowel sounds, no guarding, no rebound, no hepatosplenomegaly, no masses. EXTREMITIES: 2+ pulses, warm, well-perfused, no edema. Laboratory Results - last 24 hr 11/30/17 11/30/17 11/30/17 11:33 16:29 21:14 WBC RBC Hgb Hct MCV MCH MCHC RDW Plt Count MPV Neutrophils % Lymphocytes % Monocytes % Eosinophils % Basophils % Sodium Potassium Chloride Carbon Dioxide Anion Gap BUN Creatinine POC Glucometer 156 168 164 Random Glucose Calcium Phosphorus Magnesium 12/01/17 12/01/17 12/01/17 06:15 06:32 06:32 WBC 5.5 RBC 2.30 L Hgb 6.8 L* Hct 21.1 L MCV 91.6 MCH 29.6 MCHC 32.3 RDW 21.0 H Plt Count 133 L MPV 9.7 Neutrophils % 79.3 Lymphocytes % 8.4 Monocytes % 10.7 H Eosinophils % 0.6 Basophils % 1.0 Sodium 143 Potassium 3.3 L Chloride 106 Carbon Dioxide 22 Anion Gap 15 BUN 100 H Creatinine 5.1 H POC Glucometer 114 Random Glucose 115 H Calcium 7.1 L Phosphorus 7.2 H Magnesium 2.6 H Active Medications Generic Name Dose Route Start Last Admin Trade Name Freq PRN Reason Stop Dose Admin Atorvastatin Calcium 40 mg 11/17/17 22:00 11/30/17 21:34 Lipitor - PO 40 mg HS DAGO Administration Calcium Acetate 667 mg 11/29/17 17:30 12/01/17 07:54 Phoslo - PO 667 mg TIDCM DAGO Administration Clopidogrel Bisulfate 75 mg 11/17/17 10:00 12/01/17 09:41 Plavix - PO 75 mg DAILY DAGO Administration Hydralazine HCl 50 mg 11/28/17 14:00 12/01/17 06:31 Apresoline - PO 50 mg TID DAGO Administration Milrinone Lactate/Dextrose 20,000 mcg in 100 mls @ 5.515 mls/hr 11/27/17 12: 00 11/30/17 12:16 Milrinone 20mg/100ml Ivpb - IVPB 0.25 mcg/kg/min TITR DAGO 5.515 mls/hr 0.25 MCG/KG/MIN Administration Furosemide 100 mg/ Sodium 50 mls @ 5 mls/hr 11/30/17 15:00 11/30/17 17:39 Chloride IVPB 10 mg/hr TITR DAGO 5 mls/hr Protocol Administration 10 MG/HR Insulin Aspart 1 vial 11/16/17 22:00 11/30/17 22:33 Novolog Vial Sliding Scale - SQ Not Given HS DAGO Protocol Insulin Aspart 1 vial 11/17/17 07:00 12/01/17 06:30 Novolog Vial Sliding Scale - SQ Not Given TIDAC COUNT [facility]CLUDES [facility] Protocol Insulin Detemir 10 units 11/26/17 22:00 11/30/17 21:33 Levemir Vial SQ 10 units HS DAGO Administration Isosorbide Dinitrate 10 mg 11/25/17 18:00 12/01/17 07:54 Isordil - PO 10 mg TIDISORDIL DAGO Administration Metoprolol Succinate 50 mg 11/17/17 10:00 12/01/17 09:41 Toprol Xl - PO 50 mg DAILY DAGO Administration Sodium Bicarbonate 650 mg 11/17/17 22:00 12/01/17 09:41 Sodium Bicarbonate - PO 650 mg BID DAGO Administration Tamsulosin HCl 0.4 mg 11/16/17 22:00 11/30/17 21:34 Flomax - PO 0.4 mg HS DAGO Administration ASSESSMENT/PLAN: 1. Acute systolic heart failure - Has new cardiomyopathy on echo - Continue Milrinone, Lasix drip, Imdur, Hydralazine - Nephrology follow up for possible HD - Ischemia evaluation per cardiology once optimized 2. Acute kidney injury vs progression of CKD - Continue Lasix drip and if no response, will need HD - Continue PhosLo, sodium bicarb 3. Stage 3 CKD 4. Atrial fibrillation - Continue Toprol XL, Plavix - Not on anticoagulation secondary to prior GI bleed, aortoenteric fistula 5. Type 2 DM - Continue Levemir, Novolog sliding scale 6. Hypertension - Continue Hydralazine, Toprol XL, Lasix 7. Serratia UTI - Completed Zosyn 8. Hyperlipidemia - Continue Lipitor 9. 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 Ventricular tachycardia - Continue Toprol XL 11. CAD - Continue Toprol XL, Plavix, Imdur, Lipitor 12. Anemia secondary to CKD, iron deficiency - Received Epogen, iron sucrose 13. PAD 14. History of AAA repair 15. History of CVA Visit type - Emergency Visit Emergency Visit: Yes ED Registration Date: 11/16/17 Care time: The patient presented to the Emergency Department on the above date and was hospitalized for further evaluation of their emergent condition. - New Patient This patient is new to me today: Yes Date on this admission: 12/01/17 - Critical Care Critical Care patient: No - Discharge Referral Referred to [facility] No
[2017-12-01] MEDS ORDERED: INSULIN (NOVOLOG) ASPART 100 UNITS/ML 10ML VIAL ONE (11:21)
--- NOTE | 2017-12-01 11:28 | PN ---
Progress Note (short form) - Note Progress Note: Chief Complaint: sob History of Present Illness: on milrinone feels about the same no cp, palpitations, syncope sob (although appears sob) ex cigs Current Medications: Current Medications Generic Name Dose Route Start Last Admin Trade Name Freq PRN Reason Stop Dose Admin Atorvastatin Calcium 40 mg 11/17/17 22:00 11/30/17 21:34 Lipitor - PO 40 mg HS [facility]AGO Administration Calcium Acetate 667 mg 11/29/17 17:30 12/01/17 11:23 Phoslo - PO 667 mg TIDCM DAGO Administration Clopidogrel Bisulfate 75 mg 11/17/17 10:00 12/01/17 09:41 Plavix - PO 75 mg DAILY DAGO Administration Hydralazine HCl 50 mg 11/28/17 14:00 12/01/17 06:31 Apresoline - PO 50 mg TID DAGO Administration Milrinone Lactate/Dextrose 20,000 mcg in 100 mls @ 5.515 mls/hr 11/27/17 12: 00 11/30/17 12:16 Milrinone 20mg/100ml Ivpb - IVPB 0.25 mcg/kg/min TITR DAGO 5.515 mls/hr 0.25 MCG/KG/MIN Administration Furosemide 100 mg/ Sodium 50 mls @ 5 mls/hr 11/30/17 15:00 11/30/17 17:39 Chloride IVPB 10 mg/hr TITR DAGO 5 mls/hr Protocol Administration 10 MG/HR Insulin Aspart 1 vial 11/16/17 22:00 11/30/17 22:33 Novolog Vial Sliding Scale - SQ Not Given HS [facility] Protocol Insulin Aspart 1 vial 11/17/17 07:00 12/01/17 11:18 Novolog Vial Sliding Scale - SQ 2 units TIDAC DAGO Administration Protocol Insulin Detemir 10 units 11/26/17 22:00 11/30/17 21:33 Levemir Vial SQ 10 units HS DAGO Administration Isosorbide Dinitrate 10 mg 11/25/17 18:00 12/01/17 07:54 Isordil - PO 10 mg TIDISORDIL DAGO Administration Metoprolol Succinate 50 mg 11/17/17 10:00 12/01/17 09:41 Toprol Xl - PO 50 mg DAILY DAGO Administration Sodium Bicarbonate 650 mg 11/17/17 22:00 12/01/17 09:41 Sodium Bicarbonate - PO 650 mg BID DAGO Administration Tamsulosin HCl 0.4 mg 11/16/17 22:00 11/30/17 21:34 Flomax - PO 0.4 mg HS DAGO Administration - Objective Vital Signs: Vital Signs Temp 98.6 F 12/01/17 08:56 Pulse 70 12/01/17 08:56 Resp 22 12/01/17 08:56 BP 110/52 12/01/17 08:56 Pulse Ox 96 12/01/17 08:27 Intake & Output 11/30/17 11/30/17 12/01/17 11:59 23:59 11:59 Intake Total 70 354 121 Output Total 450 500 450 Balance -380 -146 -329 Weight 167 lb 6.4 oz 168 lb Intake: IV 60 54 121 Lasix Injection - 100 mg 55 In Normal Saline - 40 ml @ 10 MG/HR 5 mls/hr IVPB TITR DAGO Rx#:[id number] MILRINONE 20MG/100ML IVPB 60 44 66 - 20,000 mcg In 100 ml @ 0.25 MCG/KG/MIN 5.515 mls/hr IVPB TITR DAGO Rx#: [id number] Saline Lock 10 IVPB 10 Oral 300 Output: Urine 450 500 450 Void 450 500 450 Other: Voiding Method Urinal Urinal Urinal Bowel Movement No Weight Measurement Method Standing Scale Standing Scale Constitutional: Yes: No Distress, Calm Eyes: No: Sclera Icterus HENT: No: Nasal Congestion Cardiovascular: Yes: Regular Rate and Rhythm, JVD elevated, S1, S2,. No: Gallop , Murmur Respiratory: Yes: diminshed bases No: Accessory Muscle Use, Rales, Wheezes Gastrointestinal: Yes: Normal Bowel Sounds, Soft. No: Tenderness Extremities: No: Cold Edema: trace le edema bl Integumentary: No: Jaundice Neurological: Yes: Alert, Oriented (x3) Psychiatric: No: Agitated Labs: Laboratory Last Values WBC 5.5 K/mm3 (4.0-10.0) 12/01/17 06:32 RBC 2.30 M/mm3 (4.00-5.60) L 12/01/17 06:32 Hgb 6.8 GM/dL (11.7-16.9) L* 12/01/17 06:32 Hct 21.1 % (35.4-49) L 12/01/17 06:32 MCV 91.6 fl (80-96) 12/01/17 06:32 MCH 29.6 pg (25.7-33.7) 12/01/17 06:32 MCHC 32.3 g/dl (32.0-35.9) 12/01/17 06:32 RDW 21.0 % (11.9-15.9) H 12/01/17 06:32 Plt Count 133 K/MM3 (134-434) L 12/01/17 06:32 MPV 9.7 fl (7.5-11.1) 12/01/17 06:32 Neutrophils % 79.3 % (42.8-82.8) 12/01/17 06:32 Lymphocytes % 8.4 % (8-40) 12/01/17 06:32 Monocytes % 10.7 % (3.8-10.2) H 12/01/17 06:32 Eosinophils % 0.6 % (0-4.5) 12/01/17 06:32 Basophils % 1.0 % (0-2.0) 12/01/17 06:32 Anisocytosis 3+ 11/27/17 06:00 Microcytosis Few 11/20/17 05:51 Macrocytosis Few 11/20/17 05:51 Ovalocytes Few 11/20/17 05:51 Acanthocytes (Spur) 2+ 11/20/17 05:51 PT with INR 11.20 SEC (9.98-11.88) 11/16/17 16:00 INR 0.99 (0.82-1.09) 11/16/17 16:00 Anticoagulation Therapy No Result Required. 11/16/17 18:50 Puncture Site Right radial 11/17/17 12:19 ABG pH 7.25 (7.35-7.45) L D 11/17/17 12:19 ABG pCO2 at Pt Temp 42.4 mmHg (35-45) 11/17/17 12:19 ABG pO2 at Pt Temp 77.3 mmHg (80-100) L 11/17/17 12:19 ABG HCO3 18.0 meq/L (22-26) L 11/17/17 12:19 ABG O2 Sat (Measured) 95.0 % (90-98.9) 11/17/17 12:19 ABG O2 Content 11.9 % vol (15-22) L 11/17/17 12:19 ABG Base Excess -8.2 meq/l (-2-2) L 11/17/17 12:19 Frank Test Positive 11/17/17 12:19 VBG pH 7.12 (7.32-7.42) L* 11/16/17 16:00 POC VBG pCO2 56.3 mmHg (38-52) H 11/16/17 16:00 POC VBG pO2 89.4 mmHg (28-48) H 11/16/17 16:00 Mixed VBG HCO3 17.8 meq/L (19-25) L 11/16/17 16:00 O2 Delivery Device No Result Required. 11/16/17 18:50 Oxygen Flow Rate Yes 11/17/17 12:19 Vent Mode No Result Required. 11/16/17 18:50 Vent Rate No Result Required. 11/16/17 18:50 Mechanical Rate No Result Required. 11/16/17 18:50 Pressure Support Vent No Result Required. 11/16/17 18:50 Sodium 143 mmol/L (136-145) 12/01/17 06:32 Potassium 3.3 mmol/L (3.5-5.1) L 12/01/17 06:32 Chloride 106 mmol/L (98-107) 12/01/17 06:32 Carbon Dioxide 22 mmol/L (21-32) 12/01/17 06:32 Anion Gap 15 (8-16) 12/01/17 06:32 BUN 100 mg/dL (7-18) H 12/01/17 06:32 Creatinine 5.1 mg/dL (0.7-1.3) H 12/01/17 06:32 Creat Clearance w eGFR 13.40 (>60) 11/27/17 06:00 POC Glucometer 114 UNITS (80-120) 12/01/17 06:15 Random Glucose 115 mg/dL (74-106) H 12/01/17 06:32 Hemoglobin A1c % 10.6 % (4.8-6.0) H D 11/21/17 06:25 Lactic Acid 1.1 mmol/L (0.0-2.0) 11/16/17 16:00 Calcium 7.1 mg/dL (8.5-10.1) L 12/01/17 06:32 Phosphorus 7.2 mg/dL (2.5-4.9) H 12/01/17 06:32 Magnesium 2.6 mg/dL (1.8-2.4) H 12/01/17 06:32 Iron 29 ug/dL (38-169) L 11/21/17 06:25 TIBC 223 ug/dL (250-450) L 11/21/17 06:25 Iron Saturation 13 % (15-55) L 11/21/17 06:25 Ferritin 43.506 ng/ml (16.4-293.9) 11/21/17 06:25 Total Bilirubin 0.4 mg/dL (0.2-1.0) 11/27/17 06:00 Direct Bilirubin 0.2 mg/dL (0.0-0.2) D 11/26/17 06:00 AST 38 U/L (15-37) H D 11/27/17 06:00 ALT 47 U/L (12-78) 11/27/17 06:00 Alkaline Phosphatase 160 U/L (45-117) H D 11/27/17 06:00 Creatine Kinase 54 IU/L (39-308) 11/17/17 05:55 Troponin I 0.06 ng/ml (0.00-0.05) H D 11/17/17 05:55 B-Natriuretic Peptide 85986.11 pg/ml (5-125) H 11/16/17 16:00 Total Protein 5.5 g/dl (6.4-8.2) L 11/27/17 06:00 Albumin 2.3 g/dl (3.4-5.0) L 11/27/17 06:00 Urine Color Ltyellow 11/16/17 21:30 Urine Appearance Cloudy 11/16/17 21:30 Urine pH 5.0 (5.0-8.0) 11/16/17 21:30 Ur Specific [place] 1.012 (1.001-1.035) 11/16/17 21:30 Urine Protein 2+ (NEGATIVE) H 11/16/17 21:30 Urine Glucose (UA) 2+ (NEGATIVE) H 11/16/17 21:30 Urine Ketones Negative (NEGATIVE) 11/16/17 21:30 Urine Blood 1+ (NEGATIVE) H 11/16/17 21:30 Urine Nitrite Negative (NEGATIVE) 11/16/17 21:30 Urine Bilirubin Negative (<2.0 mg/dL) 11/16/17 21:30 Urine Urobilinogen Negative mg/dL (0.2-1.0) 11/16/17 21:30 Ur Leukocyte Esterase 1+ (NEGATIVE) H 11/16/17 21:30 Urine WBC (Auto) 20 /hpf (3-5) 11/16/17 21:30 Urine RBC (Auto) 3 /hpf (0-3) 11/16/17 21:30 Ur Epithelial Cells Rare /HPF (FEW) 11/16/17 21:30 Urine Bacteria Rare /hpf (NONE SEEN) 11/16/17 21:30 Urine Mucus Rare 11/16/17 21:30 U Random Total Protein 258 mg/dl (5-11.9) H 11/17/17 18:00 Ur Random Urea Nitrogn 324 mg/dL 11/17/17 18:00 Urine Creatinine 54.9 mg/dL (20-370) 11/17/17 18:00 SHAKIR Screen Negative (.) 11/21/17 06:25 RPR Titer Nonreactive (NONREACTIVE) 11/21/17 06:25 Hepatitis A IgM Ab Negative (Negative) 11/21/17 06:25 Hep Bs Antigen Negative (Negative) 11/21/17 06:25 Hep B Core IgM Ab Negative (Negative) 11/21/17 06:25 Hepatitis C Antibody 0.1 s/co ratio (0.0-0.9) 11/21/17 06:25 HIV 1&2 Antibody Screen Negative 11/20/17 18:20 HIV P24 Antigen Negative 11/20/17 18:20 ecg vpaced, underlying appears aflutter echo 10/2017: moderate concentric lvh. 1+ lve. mod-sev decreased LV sys fn, global. nl RV size. mod decreased RV sys fn. mod mitra. mod-sev mac. mod mr. mod-sev tr. rvsp > 60. trivial effusion. echo 11/2016: low nl lvef, mild lvh, nl rv, mitra, mod mr/tr, mod phtn echo 02/2015: mild lv dil, nl lvef, basal post-lat HK, nl rv size/fcn, severe biatrial dil, sev mr, sev tr, sev phtn, mod pr echo 11/2014: nl lv/rv, mod-sev mr, sev tr, sev phtn renal u/s: chronic medical renal disease. trace free fluid in upper abdomen. bilateral pleural effusions. see emr for detailed findings. mibi 11/2016: no ischemia tele: v-paced, brief nsvt CXR: worse chf CT chest not reported--images reviewed with dr boyce: large R, small-moderate L pleural effusions, fluid in fissure areas of atx vs congestion vs infiltrate a/p: 67 m hx cad s/p nstemi/pci (11/2014 pt had chf with +trops so sent for cath [facility] and had rota and GIOVANNI to pLAD, residual dLCx and ramus 50-60% both), dchf, htn, hld, dm, ckd, afib on coumadin, cva, ppm (biotronik 05/2012), remote AAA repair, pad s/p left fem stent 2015 and left toe amp here with sob. acute systolic chf: - echo here shows new systolic cardiomyopathy. will need to consider stress vs. cath once euvolemic (inpatient vs. 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 - ? etiology: r/o multivessel CAD as above. no tachyarrhythmia burden here. ? RV apical pacing cardiomyopathy--would have low threshold to consider [employer] upgrade. defer to dr liriano (outpt cardio) once HF is better optimized. -has been receiving doses of lasix 80 iv qd to bid here, with progressively worsening renal fxn, no improvement in radiographic findings. wt currently unchanged vs initial wt here (162). ? dry wt. office dry wt 09/07 visit 154 lbs -given CT chest appearance clearly c/w chf, pt needs inotrope-assisted diuresis to improve efficacy and improve renal perfusion. started milrinone 11/27. -albumin 2.3, doubt significant 3rd-spacing component -cont low dose nitrates as doing, for cardiorenal syndrome -rec increase metoprolol to target syst CHF doses later, once fluid status improved -hold JONO/ARB/spirono due to severe KELLI - 11/28: con't milrinone. uptitrate afterload reduction further. increase hydral to 50 bid. con't isordil. Will redose lasix 100 mg IV x 1 with additional metolazone. If repeat bmp overall stable this evening, will redose lasix 100 mg IV x 1 again. -11/29: cont milrinone, will give lasix 100 iv x1 today -11/30-: after several days of milrinone and high dose lasix (now on lasix gtt ) pt is still not diuresing well. Cr is also worsening. Likely esrd contributing. Will likely need need HD for volume management. kelli on ckd: -as above VTach: -K and Mg optimized (aggressive targets) -observe tele on milrinone -cont BB as doing cad/pci: -stable, no cp/angina/acs -preserved lvef echo 2017 and no ischemia on 2017 mibi, but with known cad/ residual disease now with new cardiomypathy. ischemic eval as mentioned above. -cont home bb, statin, plavix htn: -cont bb, hydral hld: -cont statin afib,aflutter,atach: -rate controlled as pt has complete heart block with ppm -Has hx of cva and was on AC and dapt previously before a prior GIB, and aortoenteric fistula. was followed by vascular at [facility], now by Dr. Ren. DAPT was deemed safe to resume in 2016 after LE stent. For now, cont plavix monotherapy. ppm (biotronik for CHB): -Normal fcn on recent office check, next routine check planned 11/2017 remote aaa repair/pad s/p multiple interventions and toe amputations : -stable, continue bp control. plavix, statin anemia: -hgb slowly drifting down, prbcs per pmd
--- NOTE | 2017-12-01 12:11 | PN ---
Progress Note, Physician History of Present Illness: PULMONARY ALERT,SITTING UP IN BED,LESS DYSPNEIC,REMAINS ON MILRINONE AND LASIX DRIP.CURRENTLY BEING TRANSFUSED. - Current Medication List Current Medications: Active Medications Atorvastatin Calcium (Lipitor -) 40 mg PO HS [facility] Last Admin: 11/30/17 21:34 Dose: 40 mg Calcium Acetate (Phoslo -) 667 mg PO TIDCM [facility] Last Admin: 12/01/17 11:23 Dose: 667 mg Clopidogrel Bisulfate (Plavix -) 75 mg PO DAILY [facility] Last Admin: 12/01/17 09:41 Dose: 75 mg Hydralazine HCl (Apresoline -) 50 mg PO TID [facility] Last Admin: 12/01/17 06:31 Dose: 50 mg Milrinone Lactate/Dextrose (Milrinone 20mg/100ml Ivpb -) 20,000 mcg in 100 mls @ 5.515 mls/hr IVPB TITR DAGO PRN Reason: 0.25 MCG/KG/MIN Last Admin: 11/30/17 12:16 Dose: 0.25 mcg/kg/min, 5.515 mls/hr Furosemide 100 mg/ Sodium (Chloride) 50 mls @ 5 mls/hr IVPB TITR DAGO; 10 MG/HR PRN Reason: Protocol Last Admin: 11/30/17 17:39 Dose: 10 mg/hr, 5 mls/hr Insulin Aspart (Novolog Vial Sliding Scale -) 1 vial SQ HS [facility] PRN Reason: Protocol Last Admin: 11/30/17 22:33 Dose: Not Given Insulin Aspart (Novolog Vial Sliding Scale -) 1 vial SQ TIDAC [facility] PRN Reason: Protocol Last Admin: 12/01/17 11:18 Dose: 2 units Insulin Detemir (Levemir Vial) 10 units SQ HS [facility] Last Admin: 11/30/17 21:33 Dose: 10 units Isosorbide Dinitrate (Isordil -) 10 mg PO TIDISORDIL [facility] Last Admin: 12/01/17 07:54 Dose: 10 mg Metoprolol Succinate (Toprol Xl -) 50 mg PO DAILY [facility] Last Admin: 12/01/17 09:41 Dose: 50 mg Sodium Bicarbonate (Sodium Bicarbonate -) 650 mg PO BID [facility] Last Admin: 12/01/17 09:41 Dose: 650 mg Tamsulosin HCl (Flomax -) 0.4 mg PO HS [facility] Last Admin: 11/30/17 21:34 Dose: 0.4 mg - Objective Vital Signs: Vital Signs Temperature 98.6 F 12/01/17 08:56 Pulse Rate 70 12/01/17 08:56 Respiratory Rate 22 12/01/17 08:56 Blood Pressure 110/52 12/01/17 08:56 O2 Sat by Pulse Oximetry (%) 96 12/01/17 08:27 Constitutional: Yes: Calm, Thin Eyes: Yes: WNL HENT: Yes: WNL Neck: Yes: WNL Cardiovascular: Yes: Pulse Irregular, S1, S2 Respiratory: Yes: Rales (BIBASIALR RALES) Gastrointestinal: Yes: Normal Bowel Sounds, Soft Extremities: Yes: WNL Edema: Yes Labs: CBC, BMP 12/01/17 06:32 12/01/17 06:32 INR, PTT INR 0.99 (0.82-1.09) 11/16/17 16:00 Problem List - Problems (1) Acute CHF Code(s): I50.9 - HEART FAILURE, UNSPECIFIED Qualifiers: Heart failure type: diastolic Qualified Code(s): I50.31 - Acute diastolic ( congestive) heart failure (2) Acute on chronic renal failure Code(s): N17.9 - ACUTE KIDNEY FAILURE, UNSPECIFIED; N18.9 - CHRONIC KIDNEY DISEASE, UNSPECIFIED Qualifiers: Acute renal failure type: unspecified Chronic kidney disease stage: unspecified stage Qualified Code(s): N17.9 - Acute kidney failure, unspecified ; N18.9 - Chronic kidney disease, unspecified; N18.9 - Chronic kidney disease, unspecified (3) Hypoxia Code(s): R09.02 - HYPOXEMIA (4) Atrial fibrillation Code(s): I48.91 - UNSPECIFIED ATRIAL FIBRILLATION Qualifiers: Atrial fibrillation type: paroxysmal Qualified Code(s): I48.0 - Paroxysmal atrial fibrillation (5) Congestive heart failure Code(s): I50.9 - HEART FAILURE, UNSPECIFIED Qualifiers: Qualified Code(s): I50.22 - Chronic systolic (congestive) heart failure (6) Coronary artery disease Code(s): I25.10 - ATHSCL HEART DISEASE OF [place] CORONARY ARTERY W/O ANG PCTRS Qualifiers: Coronary Disease-Associated Artery/Lesion type: [place] coronary artery [place] vs. transplanted heart: [place] heart Associated angina: without angina pectoris (7) Diabetes Code(s): E11.9 - TYPE 2 DIABETES MELLITUS WITHOUT COMPLICATIONS Qualifiers: Diabetes mellitus type: type 2 Diabetes mellitus complication status: with circulatory complication (8) NSTEMI (non-ST elevated myocardial infarction) Code(s): I21.4 - NON-ST ELEVATION (NSTEMI) MYOCARDIAL INFARCTION (9) Peripheral vascular disease Code(s): I73.9 - PERIPHERAL VASCULAR DISEASE, UNSPECIFIED Assessment/Plan IMP DYSPNEA SECONDARY TO DECOMPENSATED CHF IMPROVED ASHD S/P STENT DIASTOLIC HF R PLEURAL EFFUSION PULMONARY HTN AFIB S/P PPM PULMONARY HTN DM ACUTE ON CHRONIC KIDNEY DISEASE AAA S/P REPAIR PVD HTN ANEMIA PLAN LASIX,MILRINONE DRIP O2 DAILY WTS PLAVIX MONITOR LYTES,RENAL FUNCTION NORMAL TRANSFUSION THRESHOLD MONITOR H+H DR SO Problem List - Problems (1) Acute CHF Code(s): I50.9 - HEART FAILURE, UNSPECIFIED Qualifiers: Heart failure type: unspecified Qualified Code(s): I50.9 - Heart failure, unspecified (2) Acute on chronic renal failure Code(s): N17.9 - ACUTE KIDNEY FAILURE, UNSPECIFIED; N18.9 - CHRONIC KIDNEY DISEASE, UNSPECIFIED Qualifiers: Acute renal failure type: unspecified Chronic kidney disease stage: unspecified stage Qualified Code(s): N17.9 - Acute kidney failure, unspecified ; N18.9 - Chronic kidney disease, unspecified; N18.9 - Chronic kidney disease, unspecified (3) Hypoxia Code(s): R09.02 - HYPOXEMIA (4) Atrial fibrillation Code(s): I48.91 - UNSPECIFIED ATRIAL FIBRILLATION Qualifiers: Atrial fibrillation type: paroxysmal Qualified Code(s): I48.0 - Paroxysmal atrial fibrillation (5) Congestive heart failure Code(s): I50.9 - HEART FAILURE, UNSPECIFIED Qualifiers: Qualified Code(s): I50.22 - Chronic systolic (congestive) heart failure (6) Coronary artery disease Code(s): I25.10 - ATHSCL HEART DISEASE OF [place] CORONARY ARTERY W/O ANG PCTRS Qualifiers: Coronary Disease-Associated Artery/Lesion type: [place] coronary artery [place] vs. transplanted heart: [place] heart Associated angina: without angina pectoris (7) Diabetes Code(s): E11.9 - TYPE 2 DIABETES MELLITUS WITHOUT COMPLICATIONS Qualifiers: Diabetes mellitus type: type 2 Diabetes mellitus complication status: with circulatory complication (8) NSTEMI (non-ST elevated myocardial infarction) Code(s): I21.4 - NON-ST ELEVATION (NSTEMI) MYOCARDIAL INFARCTION (9) Peripheral vascular disease Code(s): I73.9 - PERIPHERAL VASCULAR DISEASE, UNSPECIFIED
[2017-12-01] MEDS: MILRINONE 20MG/100ML IVPB - 20,000 MCG/100 ML ML IVPB SCH (12:19)
--- NOTE | 2017-12-01 13:38 | PN ---
Progress Note (short form) - Note Progress Note: Renal follow up for KELLI on CKD Pt seen and examined at the bedside pt continues to gain weight depite Lasix gtt no marked increase in urine output as pt pt SOB is unchanged per pt no chest pain, abd pain Vital Signs Temperature 98.6 F 12/01/17 08:56 Pulse Rate 70 12/01/17 08:56 Respiratory Rate 22 12/01/17 08:56 Blood Pressure 110/52 12/01/17 08:56 O2 Sat by Pulse Oximetry (%) 96 12/01/17 08:27 Intake & Output 11/28/17 11/29/17 11/30/17 12/01/17 23:59 23:59 23:59 23:59 Intake Total 1316 1246 424 121 Output Total 1075 1205 950 750 Balance 241 41 526 629 Weight 74.616 kg 75.41 kg 75.931 kg 76.204 kg NAD, awake and alert RRR Dec BS, no rales Trace LE edema CBC, BMP 12/01/17 06:32 12/01/17 06:32 Current Medications Atorvastatin Calcium (Lipitor -) 40 mg PO HS [facility] Last Admin: 11/30/17 21:34 Dose: 40 mg Calcium Acetate (Phoslo -) 667 mg PO TIDCM ON [facility] Last Admin: 12/01/17 11:23 Dose: 667 mg Clopidogrel Bisulfate (Plavix -) 75 mg PO DAILY [facility] Last Admin: 12/01/17 09:41 Dose: 75 mg Hydralazine HCl (Apresoline -) 50 mg PO TID [facility] Last Admin: 12/01/17 06:31 Dose: 50 mg Milrinone Lactate/Dextrose (Milrinone 20mg/100ml Ivpb -) 20,000 mcg in 100 mls @ 5.515 mls/hr IVPB TITR [facility] PRN Reason: 0.25 MCG/KG/MIN Last Admin: 12/01/17 12:19 Dose: 0.25 mcg/kg/min, 5.515 mls/hr Sodium Chloride (Normal Saline -) 250 mls @ 3,000 mls/hr IV PRN PRN PRN Reason: Hypotension during Dialysis Stop: 12/02/17 13:32 Insulin Aspart (Novolog Vial Sliding Scale -) 1 vial SQ HS [facility] PRN Reason: Protocol Last Admin: 11/30/17 22:33 Dose: Not Given Insulin Aspart (Novolog Vial Sliding Scale -) 1 vial SQ TIDAC [facility] PRN Reason: Protocol Last Admin: 12/01/17 11:18 Dose: 2 units Insulin Detemir (Levemir Vial) 10 units SQ HS [facility] Last Admin: 11/30/17 21:33 Dose: 10 units Isosorbide Dinitrate (Isordil -) 10 mg PO TIDISORDIL [facility] Last Admin: 12/01/17 12:20 Dose: 10 mg Metoprolol Succinate (Toprol Xl -) 50 mg PO DAILY [facility] Last Admin: 12/01/17 09:41 Dose: 50 mg Sodium Bicarbonate (Sodium Bicarbonate -) 650 mg PO BID [facility] Last Admin: 12/01/17 09:41 Dose: 650 mg Tamsulosin HCl (Flomax -) 0.4 mg PO HS [facility] Last Admin: 11/30/17 21:34 Dose: 0.4 mg Torsemide (Demadex -) 80 mg PO DAILY [facility] 67 year old gentleman with PMhx of CKD Stage 3, CHF, AFib, Hypertension who presented with weakness and sob and found to have CHF exacerbation with KELLI #KELLI on CKD vs. progressive CKD #Nephrotic Proteinuira #SOB secondary to CHF exacerbation #Anemia Pt with volume overload refractory do diuretics given volume and low eGFR will start HD today risks and benefits of dialysis explained to Eugenio and his and they are in agreement will start HD today with temporary catheter to have HD session with UF today and tomorrow will likely need terminal superintendent HD but will monitor clinical response over the weekend d/c lasix gtt start torsemide 80mg Daily on Monday Beau Iraheta DO
--- NOTE | 2017-12-01 15:53 | PROC ---
Central Line Insertion - Procedure Note TIME OUT performed prior to this procedure with verbal confirmation of correct patient identity, correct side, agreement of the procedure, correct patient position, availability of necessary equipment. The consent form is complete and accurate. Risk of possible infection, bleeding have been discussed with the patient. Safety precautions based on patient history or medication use has been addressed. Consent on Chart: Yes Central Line: Dialysis Cath, Dual Lumen Position: Supine Area prepped with Chlorhexidine solution then draped using sterile barrier protection. Technique used: Seldinger Ultrasound Guided Assistance: Yes Site: Right Femoral Dark venous non-pulsatile flow noted from hub of needle. The catheter was introduced. Guide wire removed intact. Each port aspirated then flushed with sterile normal saline and capped. Line secured to skin with silk suture. Biopatch placed around base of line. Sterile occlusive dressing applied. No complications. Patient tolerated the procedure well. The line was flushed with 5 ,000 units Heparin 1.4 ml into each port. D/w the HD dialysis nurse. He is to have HD tonight.
--- NOTE | 2017-12-01 16:02 | PN ---
Progress Note, Physician History of Present Illness: stable no complaints - Current Medication List Current Medications: Active Medications Albumin Human (Albumin Human 25%) 12.5 gm IVPB Q30M [facility] Atorvastatin Calcium (Lipitor -) 40 mg PO HS [facility] Last Admin: 11/30/17 21:34 Dose: 40 mg Calcium Acetate (Phoslo -) 667 mg PO TIDCM [facility] Last Admin: 12/01/17 11:23 Dose: 667 mg Clopidogrel Bisulfate (Plavix -) 75 mg PO DAILY [facility] Last Admin: 12/01/17 09:41 Dose: 75 mg Hydralazine HCl (Apresoline -) 50 mg PO TID [facility] Last Admin: 12/01/17 13:40 Dose: 50 mg Milrinone Lactate/Dextrose (Milrinone 20mg/100ml Ivpb -) 20,000 mcg in 100 mls @ 5.515 mls/hr IVPB TITR [facility] PRN Reason: 0.25 MCG/KG/MIN Last Admin: 12/01/17 12:19 Dose: 0.25 mcg/kg/min, 5.515 mls/hr Sodium Chloride (Normal Saline -) 250 mls @ 3,000 mls/hr IV PRN PRN PRN Reason: Hypotension during Dialysis Stop: 12/02/17 13:32 Sodium Chloride (Normal Saline -) 250 mls @ 3,000 mls/hr IV PRN PRN PRN Reason: Hypotension during Dialysis Stop: 12/02/17 13:38 Insulin Aspart (Novolog Vial Sliding Scale -) 1 vial SQ HS [facility] PRN Reason: Protocol Last Admin: 11/30/17 22:33 Dose: Not Given Insulin Aspart (Novolog Vial Sliding Scale -) 1 vial SQ TIDAC [facility] PRN Reason: Protocol Last Admin: 12/01/17 11:18 Dose: 2 units Insulin Detemir (Levemir Vial) 10 units SQ HS [facility] Last Admin: 11/30/17 21:33 Dose: 10 units Isosorbide Dinitrate (Isordil -) 10 mg PO TIDISORDIL [facility] Last Admin: 12/01/17 12:20 Dose: 10 mg Metoprolol Succinate (Toprol Xl -) 50 mg PO DAILY [facility] Last Admin: 12/01/17 09:41 Dose: 50 mg Sodium Bicarbonate (Sodium Bicarbonate -) 650 mg PO BID [facility] Last Admin: 12/01/17 09:41 Dose: 650 mg Tamsulosin HCl (Flomax -) 0.4 mg PO HS [facility] Last Admin: 11/30/17 21:34 Dose: 0.4 mg Torsemide (Demadex -) 80 mg PO DAILY [facility] - Objective Vital Signs: Vital Signs Temperature 98.6 F 12/01/17 13:39 Pulse Rate 69 12/01/17 13:39 Respiratory Rate 22 12/01/17 13:39 Blood Pressure 122/57 12/01/17 13:39 O2 Sat by Pulse Oximetry (%) 96 12/01/17 08:27 Constitutional: Yes: No Distress, Calm Cardiovascular: Yes: S1, S2 Respiratory: Yes: Regular, CTA Bilaterally Gastrointestinal: Yes: Normal Bowel Sounds, Soft Musculoskeletal: Yes: Other Extremities: Yes: Other Neurological: Yes: Alert, Oriented Psychiatric: Yes: Alert, Oriented Labs: CBC, BMP 12/01/17 06:32 12/01/17 06:32 INR, PTT INR 0.99 (0.82-1.09) 11/16/17 16:00 Assessment/Plan Problem List - Problems (1) Acute CHF Code(s): I50.9 - HEART FAILURE, UNSPECIFIED Qualifiers: Heart failure type: diastolic Qualified Code(s): I50.31 - Acute diastolic ( congestive) heart failure (2) Acute on chronic renal failure Code(s): N17.9 - ACUTE KIDNEY FAILURE, UNSPECIFIED; N18.9 - CHRONIC KIDNEY DISEASE, UNSPECIFIED Qualifiers: Acute renal failure type: unspecified Chronic kidney disease stage: unspecified stage Qualified Code(s): N17.9 - Acute kidney failure, unspecified ; N18.9 - Chronic kidney disease, unspecified; N18.9 - Chronic kidney disease, unspecified (3) Hypoxia Code(s): R09.02 - HYPOXEMIA (4) Atrial fibrillation Code(s): I48.91 - UNSPECIFIED ATRIAL FIBRILLATION Qualifiers: Atrial fibrillation type: paroxysmal Qualified Code(s): I48.0 - Paroxysmal atrial fibrillation (5) Diabetes Code(s): E11.9 - TYPE 2 DIABETES MELLITUS WITHOUT COMPLICATIONS Qualifiers: Diabetes mellitus type: type 2 Diabetes mellitus complication status: with circulatory complication (6) Hypertension Code(s): I10 - ESSENTIAL (PRIMARY) HYPERTENSION Qualifiers: Hypertension type: essential hypertension Qualified Code(s): I10 - Essential (primary) hypertension (7) UTI complicated plan off of abx patient stable continue as per cardio rest as per the team
[2017-12-01] MEDS ORDERED: SODIUM CHLORIDE 250 ML IV PRN ×2 (20:10)
[2017-12-01] MEDS: ALBUMIN HUMAN 25% 12.5 GM/50 ML VIAL IVPB SCH ×4 (20:15→21:45)
[2017-12-01] MEDS: TAMSULOSIN HCL 0.4 MG CAP.ER.24H (FP) PO SCH (23:32)
[2017-12-01] MEDS: INSULIN (LEVEMIR) 100 UNITS/ML UNITS SQ SCH (23:32)
[2017-12-01] MEDS: ATORVASTATIN CA 40 MG TABLET (FP) PO SCH (23:33)
[2017-12-02] MEDS: hydrALAZINE HCL 50 MG TABLET (FP) PO SCH ×3 (06:29→22:05)
[2017-12-02] MEDS: INSULIN SLIDING SCALE (NOVOLOG) 1 VIAL SQ SCH ×4 (06:32→22:05)
--- NOTE | 2017-12-02 10:29 | PN ---
Progress Note, Physician History of Present Illness: No cardiovascular complaints Breathing improved Tele: V-paced - Current Medication List Current Medications: Active Medications Atorvastatin Calcium (Lipitor -) 40 mg PO HS [facility] Last Admin: 12/01/17 23:33 Dose: 40 mg Calcium Acetate (Phoslo -) 667 mg PO TIDCM [facility] Last Admin: 12/01/17 16:59 Dose: 667 mg Clopidogrel Bisulfate (Plavix -) 75 mg PO DAILY [facility] Last Admin: 12/01/17 09:41 Dose: 75 mg Epoetin Romeo (Procrit -) 20,000 unit SQ ONCE ONE Stop: 12/02/17 06:01 Hydralazine HCl (Apresoline -) 50 mg PO TID [facility] Last Admin: 12/02/17 06:29 Dose: 50 mg Milrinone Lactate/Dextrose (Milrinone 20mg/100ml Ivpb -) 20,000 mcg in 100 mls @ 5.515 mls/hr IVPB TITR [facility] PRN Reason: 0.25 MCG/KG/MIN Last Admin: 12/01/17 12:19 Dose: 0.25 mcg/kg/min, 5.515 mls/hr Sodium Chloride (Normal Saline -) 250 mls @ 3,000 mls/hr IV PRN PRN PRN Reason: Hypotension during Dialysis Stop: 12/02/17 20:09 Sodium Chloride (Normal Saline -) 250 mls @ 3,000 mls/hr IV PRN PRN PRN Reason: Hypotension during Dialysis Stop: 12/02/17 20:09 Sodium Chloride (Normal Saline -) 250 mls @ 3,000 mls/hr IV PRN PRN PRN Reason: Hypotension during Dialysis Stop: 12/02/17 23:31 Insulin Aspart (Novolog Vial Sliding Scale -) 1 vial SQ HS [facility] PRN Reason: Protocol Last Admin: 12/01/17 23:33 Dose: 2 unit Insulin Aspart (Novolog Vial Sliding Scale -) 1 vial SQ TIDAC [facility] PRN Reason: Protocol Last Admin: 12/02/17 06:32 Dose: Not Given Insulin Detemir (Levemir Vial) 10 units SQ HS [facility] Last Admin: 12/01/17 23:32 Dose: 10 units Isosorbide Dinitrate (Isordil -) 10 mg PO TIDISORDIL [facility] Last Admin: 12/01/17 16:59 Dose: 10 mg Metoprolol Succinate (Toprol Xl -) 50 mg PO DAILY [facility] Last Admin: 12/01/17 09:41 Dose: 50 mg Sodium Bicarbonate (Sodium Bicarbonate -) 650 mg PO BID [facility] Last Admin: 12/01/17 23:40 Dose: 650 mg Tamsulosin HCl (Flomax -) 0.4 mg PO HS [facility] Last Admin: 12/01/17 23:32 Dose: 0.4 mg Torsemide (Demadex -) 80 mg PO DAILY [facility] - Objective Vital Signs: Vital Signs Temperature 98.8 F 12/02/17 01:48 Pulse Rate 70 12/02/17 01:48 Respiratory Rate 18 12/02/17 01:48 Blood Pressure 118/50 12/02/17 01:48 O2 Sat by Pulse Oximetry (%) 96 12/01/17 21:00 Constitutional: Yes: No Distress, Calm Eyes: Yes: WNL HENT: Yes: WNL Neck: Yes: WNL Cardiovascular: Yes: Regular Rate and Rhythm Respiratory: Yes: Diminished Gastrointestinal: Yes: Normal Bowel Sounds Musculoskeletal: Yes: WNL Extremities: Yes: WNL Edema: No Labs: CBC, BMP 12/01/17 06:32 12/01/17 06:32 INR, PTT INR 0.99 (0.82-1.09) 11/16/17 16:00 Assessment/Plan a/p: 67 m hx cad s/p nstemi/pci (11/2014 pt had chf with +trops so sent for cath [facility] had rota and GIOVANNI to pLAD, residual dLCx and ramus 50-60% both), dchf, htn, hld, dm, ckd, afib on coumadin, cva, ppm (biotronik 05/2012), remote AAA repair, pad s/p left fem stent 2015 and left toe amp here with sob. acute systolic chf: - echo here shows new systolic cardiomyopathy. will need to consider stress vs. cath once euvolemic (inpatient vs. 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 - ? etiology: r/o multivessel CAD as above. no tachyarrhythmia burden here. ? RV apical pacing cardiomyopathy--would have low threshold to consider [facility] RN upgrade. defer to dr liriano (outpt cardio) once HF is better optimized. -has been receiving doses of lasix 80 iv qd to bid here, with progressively worsening renal fxn, no improvement in radiographic findings. wt currently unchanged vs initial wt here (162). ? dry wt. office dry wt 09/07 visit 154 lbs -given CT chest appearance clearly c/w chf, pt needs inotrope-assisted diuresis to improve efficacy and improve renal perfusion. started milrinone 11/27. -albumin 2.3, doubt significant 3rd-spacing component -cont low dose nitrates as doing, for cardiorenal syndrome -rec increase metoprolol to target syst CHF doses later, once fluid status improved -hold JONO/ARB/spirono due to severe KELLI - 11/28: con't milrinone. uptitrate afterload reduction further. increase hydral to 50 bid. con't isordil. Will redose lasix 100 mg IV x 1 with additional metolazone. If repeat bmp overall stable this evening, will redose lasix 100 mg IV x 1 again. -11/29: cont milrinone, will give lasix 100 iv x1 today -11/30-: after several days of milrinone and high dose lasix (now on lasix gtt ) pt is still not diuresing well. Cr is also worsening. Likely esrd contributing. Will likely need need HD for volume management. -12/02: 24h UOP 1350cc, weight down to 164#. Creat down to 4.2. Continue Lasix gtt/Milrinone. Needs aggressive K repletion. kelli on ckd: -as above VTach: -K and Mg optimized (aggressive targets) -observe tele on milrinone -cont BB as doing cad/pci: -stable, no cp/angina/acs -preserved lvef echo 2017 and no ischemia on 2017 mibi, but with known cad/ residual disease now with new cardiomypathy. ischemic eval as mentioned above. -cont home bb, statin, plavix htn: -cont bb, hydral hld: -cont statin afib,aflutter,atach: -rate controlled as pt has complete heart block with ppm -Has hx of cva and was on AC and dapt previously before a prior GIB, and aortoenteric fistula. was followed by vascular at [facility], now by Dr. Ren. DAPT was deemed safe to resume in 2016 after LE stent. For now, cont plavix monotherapy. ppm (biotronik for CHB): -Normal fcn on recent office check, next routine check planned 11/2017 remote aaa repair/pad s/p multiple interventions and toe amputations : -stable, continue bp control. plavix, statin anemia: -hgb slowly drifting down, prbcs per pmd
[2017-12-02 10:52] LABS: HEMATOCRIT 22.7 % (35.4-49); HEMOGLOBIN 7.5 GM/dL (11.7-16.9); MCHC 33.1 g/dl (32.0-35.9); MEAN CELL VOLUME 90.5 fl (80-96); MEAN PLT VOLUME 9.1 fl (7.5-11.1); PLATELET COUNT 132 K/MM3 (134-434); RBC 2.51 M/mm3 (4.00-5.60); RDW 20.1 % (11.9-15.9); WHITE BLOOD COUNT 6.3 K/mm3 (4.0-10.0)
[2017-12-02 11:06] LABS: ANION GAP 10 (8-16); BLOOD UREA NITROGEN 74 mg/dL (7-18); CALCIUM 7.2 mg/dL (8.5-10.1); CHLORIDE 105 mmol/L (98-107); CO2 27 mmol/L (21-32); CREATININE 4.2 mg/dL (0.7-1.3); GLUCOSE,RANDOM 72 mg/dL (74-106); SODIUM 142 mmol/L (136-145)
[2017-12-02] MEDS: SODIUM BICARBONATE 650 MG TABLET PO SCH ×2 (11:18→22:05)
[2017-12-02] MEDS: CALCIUM ACETATE 667 MG CAPSULE (FP) PO SCH ×3 (11:18→19:18)
[2017-12-02] MEDS: CLOPIDOGREL BISULFATE 75 MG TABLET (FP) PO SCH (11:18)
[2017-12-02] MEDS: ISOSORBIDE DINITRATE 10 MG TABLET (FP) PO SCH ×3 (11:18→19:18)
--- NOTE | 2017-12-02 12:47 | PN ---
Progress Note, Physician History of Present Illness: Pt seen and examined. Remains afebrile. Sitting up and eating lunch. Starting on HD. No new complaints. - Current Medication List Current Medications: Active Medications Atorvastatin Calcium (Lipitor -) 40 mg PO HS [facility] Last Admin: 12/01/17 23:33 Dose: 40 mg Calcium Acetate (Phoslo -) 667 mg PO TIDCM [facility] Last Admin: 12/02/17 11:18 Dose: 667 mg Clopidogrel Bisulfate (Plavix -) 75 mg PO DAILY [facility] Last Admin: 12/02/17 11:18 Dose: 75 mg Epoetin Romeo (Procrit -) 20,000 unit SQ ONCE ONE Stop: 12/02/17 06:01 Hydralazine HCl (Apresoline -) 50 mg PO TID [facility] Last Admin: 12/02/17 06:29 Dose: 50 mg Milrinone Lactate/Dextrose (Milrinone 20mg/100ml Ivpb -) 20,000 mcg in 100 mls @ 5.515 mls/hr IVPB TITR [facility] PRN Reason: 0.25 MCG/KG/MIN Last Admin: 12/01/17 12:19 Dose: 0.25 mcg/kg/min, 5.515 mls/hr Sodium Chloride (Normal Saline -) 250 mls @ 3,000 mls/hr IV PRN PRN PRN Reason: Hypotension during Dialysis Stop: 12/02/17 20:09 Sodium Chloride (Normal Saline -) 250 mls @ 3,000 mls/hr IV PRN PRN PRN Reason: Hypotension during Dialysis Stop: 12/02/17 20:09 Sodium Chloride (Normal Saline -) 250 mls @ 3,000 mls/hr IV PRN PRN PRN Reason: Hypotension during Dialysis Stop: 12/02/17 23:31 Insulin Aspart (Novolog Vial Sliding Scale -) 1 vial SQ HS [facility] PRN Reason: Protocol Last Admin: 12/01/17 23:33 Dose: 2 unit Insulin Aspart (Novolog Vial Sliding Scale -) 1 vial SQ TIDAC [facility] PRN Reason: Protocol Last Admin: 12/02/17 11:37 Dose: Not Given Insulin Detemir (Levemir Vial) 10 units SQ HS [facility] Last Admin: 12/01/17 23:32 Dose: 10 units Isosorbide Dinitrate (Isordil -) 10 mg PO TIDISORDIL [facility] Last Admin: 12/02/17 11:18 Dose: Not Given Metoprolol Succinate (Toprol Xl -) 50 mg PO DAILY [facility] Last Admin: 12/01/17 09:41 Dose: 50 mg Sodium Bicarbonate (Sodium Bicarbonate -) 650 mg PO BID [facility] Last Admin: 12/02/17 11:18 Dose: 650 mg Tamsulosin HCl (Flomax -) 0.4 mg PO HS [facility] Last Admin: 12/01/17 23:32 Dose: 0.4 mg Torsemide (Demadex -) 80 mg PO DAILY [facility] - Objective Vital Signs: Vital Signs Temperature 98.8 F 12/02/17 01:48 Pulse Rate 70 12/02/17 01:48 Respiratory Rate 18 12/02/17 01:48 Blood Pressure 118/50 12/02/17 01:48 O2 Sat by Pulse Oximetry (%) 96 12/01/17 21:00 Constitutional: Yes: No Distress, Calm Cardiovascular: Yes: Regular Rate and Rhythm Respiratory: Yes: Regular Gastrointestinal: Yes: Normal Bowel Sounds, Soft Integumentary: Yes: WNL Neurological: Yes: Alert, Oriented Labs: CBC, BMP 12/02/17 10:10 12/02/17 10:10 INR, PTT INR 0.99 (0.82-1.09) 11/16/17 16:00 Microbiology 11/16/17 16:00 Blood - Peripheral Venous Blood Culture - Final NO GROWTH AFTER 5 DAYS INCUBATION 11/16/17 16:00 Blood - Peripheral Venous Blood Culture - Final NO GROWTH AFTER 5 DAYS INCUBATION 11/18/17 11:05 Urine - Urine Clean Catch Urine Culture - Final Serratia Marcescens Problem List - Problems (1) Acute CHF Code(s): I50.9 - HEART FAILURE, UNSPECIFIED Qualifiers: Heart failure type: diastolic Qualified Code(s): I50.31 - Acute diastolic ( congestive) heart failure (2) Acute on chronic renal failure Code(s): N17.9 - ACUTE KIDNEY FAILURE, UNSPECIFIED; N18.9 - CHRONIC KIDNEY DISEASE, UNSPECIFIED Qualifiers: Acute renal failure type: unspecified Chronic kidney disease stage: unspecified stage Qualified Code(s): N17.9 - Acute kidney failure, unspecified ; N18.9 - Chronic kidney disease, unspecified; N18.9 - Chronic kidney disease, unspecified (3) Pulmonary hypertension Code(s): I27.20 - PULMONARY HYPERTENSION, UNSPECIFIED (4) Congestive heart failure Code(s): I50.9 - HEART FAILURE, UNSPECIFIED Qualifiers: Qualified Code(s): I50.22 - Chronic systolic (congestive) heart failure (5) Hypertension Code(s): I10 - ESSENTIAL (PRIMARY) HYPERTENSION Qualifiers: Hypertension type: essential hypertension Qualified Code(s): I10 - Essential (primary) hypertension (6) NSTEMI (non-ST elevated myocardial infarction) Code(s): I21.4 - NON-ST ELEVATION (NSTEMI) MYOCARDIAL INFARCTION Assessment/Plan Serratia UTI KELLI on CKD CAD s/p NV CHF s/p PPM - pt to be on HD - s/p course of antibx, remains afebrile -- continue monitor
[2017-12-02 13:34] LABS: PHOSPHOROUS 5.8 mg/dL (2.5-4.9)
--- NOTE | 2017-12-02 13:50 | PN ---
Progress Note, Physician History of Present Illness: Feels weak, but denies shortness of breath at rest. Tolerated dialysis yesterday , to get again today. - Current Medication List Current Medications: Active Medications Atorvastatin Calcium (Lipitor -) 40 mg PO HS [facility] Last Admin: 12/01/17 23:33 Dose: 40 mg Calcium Acetate (Phoslo -) 667 mg PO TIDCM [facility] Last Admin: 12/02/17 11:18 Dose: 667 mg Clopidogrel Bisulfate (Plavix -) 75 mg PO DAILY [facility] Last Admin: 12/02/17 11:18 Dose: 75 mg Epoetin Romeo (Procrit -) 20,000 unit SQ ONCE ONE Stop: 12/02/17 06:01 Hydralazine HCl (Apresoline -) 50 mg PO TID [facility] Last Admin: 12/02/17 06:29 Dose: 50 mg Milrinone Lactate/Dextrose (Milrinone 20mg/100ml Ivpb -) 20,000 mcg in 100 mls @ 5.515 mls/hr IVPB TITR [facility] PRN Reason: 0.25 MCG/KG/MIN Last Admin: 12/01/17 12:19 Dose: 0.25 mcg/kg/min, 5.515 mls/hr Sodium Chloride (Normal Saline -) 250 mls @ 3,000 mls/hr IV PRN PRN PRN Reason: Hypotension during Dialysis Stop: 12/02/17 20:09 Sodium Chloride (Normal Saline -) 250 mls @ 3,000 mls/hr IV PRN PRN PRN Reason: Hypotension during Dialysis Stop: 12/02/17 20:09 Sodium Chloride (Normal Saline -) 250 mls @ 3,000 mls/hr IV PRN PRN PRN Reason: Hypotension during Dialysis Stop: 12/02/17 23:31 Insulin Aspart (Novolog Vial Sliding Scale -) 1 vial SQ HS [facility] PRN Reason: Protocol Last Admin: 12/01/17 23:33 Dose: 2 unit Insulin Aspart (Novolog Vial Sliding Scale -) 1 vial SQ TIDAC [facility] PRN Reason: Protocol Last Admin: 12/02/17 11:37 Dose: Not Given Insulin Detemir (Levemir Vial) 10 units SQ [facility] Last Admin: 12/01/17 23:32 Dose: 10 units Isosorbide Dinitrate (Isordil -) 10 mg PO TIDISORDIL [facility] Last Admin: 12/02/17 11:18 Dose: Not Given Metoprolol Succinate (Toprol Xl -) 50 mg PO DAILY [facility] Last Admin: 12/01/17 09:41 Dose: 50 mg Sodium Bicarbonate (Sodium Bicarbonate -) 650 mg PO BID [facility] Last Admin: 12/02/17 11:18 Dose: 650 mg Tamsulosin HCl (Flomax -) 0.4 mg PO HS [facility] Last Admin: 12/01/17 23:32 Dose: 0.4 mg Torsemide (Demadex -) 80 mg PO DAILY [facility] - Objective Vital Signs: Vital Signs Temperature 98.8 F 12/02/17 01:48 Pulse Rate 70 12/02/17 01:48 Respiratory Rate 18 12/02/17 01:48 Blood Pressure 118/50 12/02/17 01:48 O2 Sat by Pulse Oximetry (%) 96 12/01/17 21:00 Constitutional: Yes: No Distress, Calm Cardiovascular: Yes: Regular Rate and Rhythm, S1, S2. No: Murmur Respiratory: Yes: Regular, Diminished (bilaterally) Gastrointestinal: Yes: Normal Bowel Sounds, Soft. No: Distention, Tenderness Extremities: Yes: Other (right groin shiley catheter) Edema: Yes Edema: LLE: 2+, RLE: 2+ Neurological: Yes: Alert, Oriented Labs: CBC, BMP 12/02/17 10:10 12/02/17 10:10 INR, PTT INR 0.99 (0.82-1.09) 11/16/17 16:00 Assessment/Plan Current Active Problems Acute CHF (Acute) Cardiomyopathy Anemia Afib (not candidate for AC due to prior severe GI bleeding/ suspected aorto- enteric fistula) AAA (abdominal aortic aneurysm) (Acute) Acute on chronic renal failure (Acute) Hypoxia (Acute) Pacemaker (Acute) Pulmonary hypertension (Acute) Diabetes mellitus -to get further dialysis -still on milrinone
[2017-12-02] MEDS: MILRINONE 20MG/100ML IVPB - 20,000 MCG/100 ML ML IVPB SCH (14:26)
--- NOTE | 2017-12-02 14:56 | PN ---
Progress Note (short form) - Note Progress Note: Breathing feels OK. NAD on NC O2. No acute events overnight. Intake & Output 11/29/17 11/30/17 12/01/17 12/02/17 23:59 23:59 23:59 23:59 Intake Total 1246 424 596 635 Output Total 4225 632 1885 300 Balance 74 -881 -810 335 Weight 166 lb 4 oz 167 lb 6.4 oz 168 lb 164 lb 2 oz Last Vital Signs Temp Pulse Resp BP Pulse Ox 98.8 F 70 18 118/50 96 12/02/17 01:48 12/02/17 01:48 12/02/17 01:48 12/02/17 01:48 12/01/17 21:00 Active Medications Atorvastatin Calcium (Lipitor -) 40 mg PO HS [facility] Last Admin: 12/01/17 23:33 Dose: 40 mg Calcium Acetate (Phoslo -) 667 mg PO TIDCM [facility] Last Admin: 12/02/17 11:18 Dose: 667 mg Clopidogrel Bisulfate (Plavix -) 75 mg PO DAILY [facility] Last Admin: 12/02/17 11:18 Dose: 75 mg Epoetin Romeo (Procrit -) 20,000 unit SQ ONCE ONE Stop: 12/02/17 06:01 Hydralazine HCl (Apresoline -) 50 mg PO TID [facility] Last Admin: 12/02/17 14:23 Dose: Not Given Milrinone Lactate/Dextrose (Milrinone 20mg/100ml Ivpb -) 20,000 mcg in 100 mls @ 5.515 mls/hr IVPB TITR [facility] PRN Reason: 0.25 MCG/KG/MIN Last Admin: 12/02/17 14:26 Dose: 0.25 mcg/kg/min, 5.6 mls/hr Sodium Chloride (Normal Saline -) 250 mls @ 3,000 mls/hr IV PRN PRN PRN Reason: Hypotension during Dialysis Stop: 12/02/17 20:09 Sodium Chloride (Normal Saline -) 250 mls @ 3,000 mls/hr IV PRN PRN PRN Reason: Hypotension during Dialysis Stop: 12/02/17 20:09 Sodium Chloride (Normal Saline -) 250 mls @ 3,000 mls/hr IV PRN PRN PRN Reason: Hypotension during Dialysis Stop: 12/02/17 23:31 Insulin Aspart (Novolog Vial Sliding Scale -) 1 vial SQ HS [facility] PRN Reason: Protocol Last Admin: 12/01/17 23:33 Dose: 2 unit Insulin Aspart (Novolog Vial Sliding Scale -) 1 vial SQ TIDAC [facility] PRN Reason: Protocol Last Admin: 12/02/17 11:37 Dose: Not Given Insulin Detemir (Levemir Vial) 10 units SQ HS [facility] Last Admin: 12/01/17 23:32 Dose: 10 units Isosorbide Dinitrate (Isordil -) 10 mg PO TIDISORDIL [facility] Last Admin: 12/02/17 14:23 Dose: Not Given Metoprolol Succinate (Toprol Xl -) 50 mg PO DAILY [facility] Last Admin: 12/01/17 09:41 Dose: 50 mg Sodium Bicarbonate (Sodium Bicarbonate -) 650 mg PO BID [facility] Last Admin: 12/02/17 11:18 Dose: 650 mg Tamsulosin HCl (Flomax -) 0.4 mg PO HS [facility] Last Admin: 12/01/17 23:32 Dose: 0.4 mg Torsemide (Demadex -) 80 mg PO DAILY [facility] Constitutional: Yes: NAD Eyes: Yes: WNL HENT: Yes: WNL Neck: Yes: WNL Cardiovascular: Yes: Pulse Irregular, S1, S2 Respiratory: Yes: Diminished at the bases Gastrointestinal: Yes: Normal Bowel Sounds, Soft Extremities: Yes: WNL Edema: No Labs: Laboratory Results - last 24 hr 12/01/17 12/01/17 12/01/17 14:00 16:56 23:11 WBC RBC Hgb Hct MCV MCH MCHC RDW Plt Count MPV Sodium Potassium Chloride Carbon Dioxide Anion Gap BUN Creatinine POC Glucometer 203 207 Random Glucose Calcium Phosphorus Blood Type O POSITIVE Antibody Screen Negative Crossmatch See Detail 12/02/17 12/02/17 12/02/17 06:31 10:10 10:10 WBC 6.3 RBC 2.51 L Hgb 7.5 L D Hct 22.7 L MCV 90.5 MCH 30.0 MCHC 33.1 RDW 20.1 H Plt Count 132 L MPV 9.1 Sodium 142 Potassium 3.0 L Chloride 105 Carbon Dioxide 27 D Anion Gap 10 BUN 74 H D Creatinine 4.2 H POC Glucometer 80 Random Glucose 72 L D Calcium 7.2 L Phosphorus 5.8 H Blood Type Antibody Screen Crossmatch 12/02/17 12/02/17 10:10 11:35 WBC RBC Hgb Hct MCV MCH MCHC RDW Plt Count MPV Sodium Potassium Chloride Carbon Dioxide Anion Gap BUN Creatinine POC Glucometer 101 Random Glucose Calcium Phosphorus Cancelled Blood Type Antibody Screen Crossmatch Problem List - Problems (1) Acute CHF Code(s): I50.9 - HEART FAILURE, UNSPECIFIED Qualifiers: Heart failure type: diastolic Qualified Code(s): I50.31 - Acute diastolic ( congestive) heart failure (2) Acute on chronic renal failure Code(s): N17.9 - ACUTE KIDNEY FAILURE, UNSPECIFIED; N18.9 - CHRONIC KIDNEY DISEASE, UNSPECIFIED Qualifiers: Acute renal failure type: unspecified Chronic kidney disease stage: unspecified stage Qualified Code(s): N17.9 - Acute kidney failure, unspecified ; N18.9 - Chronic kidney disease, unspecified; N18.9 - Chronic kidney disease, unspecified (3) Hypoxia Code(s): R09.02 - HYPOXEMIA (4) Atrial fibrillation Code(s): I48.91 - UNSPECIFIED ATRIAL FIBRILLATION Qualifiers: Atrial fibrillation type: paroxysmal Qualified Code(s): I48.0 - Paroxysmal atrial fibrillation (5) Congestive heart failure Code(s): I50.9 - HEART FAILURE, UNSPECIFIED Qualifiers: Qualified Code(s): I50.22 - Chronic systolic (congestive) heart failure (6) Coronary artery disease Code(s): I25.10 - ATHSCL HEART DISEASE OF CIRCLE CORONARY ARTERY W/O ANG PCTRS Qualifiers: Coronary Disease-Associated Artery/Lesion type: [place] coronary artery [place] vs. transplanted heart: [place] heart Associated angina: without angina pectoris (7) Diabetes Code(s): E11.9 - TYPE 2 DIABETES MELLITUS WITHOUT COMPLICATIONS Qualifiers: Diabetes mellitus type: type 2 Diabetes mellitus complication status: with circulatory complication (8) NSTEMI (non-ST elevated myocardial infarction) Code(s): I21.4 - NON-ST ELEVATION (NSTEMI) MYOCARDIAL INFARCTION (9) Peripheral vascular disease Code(s): I73.9 - PERIPHERAL VASCULAR DISEASE, UNSPECIFIED Assessment/Plan IMP DYSPNEA SECONDARY TO DECOMPENSATED CHF IMPROVED ASHD S/P STENT DIASTOLIC HF R PLEURAL EFFUSION PULMONARY HTN AFIB S/P PPM PULMONARY HTN DM ACUTE ON CHRONIC KIDNEY DISEASE AAA S/P REPAIR PVD HTN PLAN: O2 NEEDED DAILY WTS PLAVIX MILRINONE DEMADEX Dr Hogan
[2017-12-02] MEDS ORDERED: POTASSIUM CHLORIDE TABS 20 MEQ TABLET.ER (FP) PO ONE (15:30)
[2017-12-02] MEDS ORDERED: SODIUM CHLORIDE 250 ML IV PRN (15:45)
[2017-12-02] MEDS ORDERED: EPOETIN ALFA 20,000 UNIT/1 ML VIAL SQ ONE (15:45)
[2017-12-02] MEDS: TAMSULOSIN HCL 0.4 MG CAP.ER.24H (FP) PO SCH (22:05)
[2017-12-02] MEDS: ATORVASTATIN CA 40 MG TABLET (FP) PO SCH (22:05)
[2017-12-02] MEDS: INSULIN (LEVEMIR) 100 UNITS/ML UNITS SQ SCH (22:06)
--- NOTE | 2017-12-02 23:23 | PN ---
Progress Note (short form) - Note Progress Note: 67 year old gentleman with PMhx of CKD Stage 3, CHF, AFib, Hypertension weakness and sob from CHF exacerbation with KELLI Current Medications Atorvastatin Calcium (Lipitor -) 40 mg PO HS [facility] Last Admin: 12/02/17 22:05 Dose: 40 mg Calcium Acetate (Phoslo -) 667 mg PO TIDCM [facility] Last Admin: 12/02/17 19:18 Dose: 667 mg Clopidogrel Bisulfate (Plavix -) 75 mg PO DAILY [facility] Last Admin: 12/02/17 11:18 Dose: 75 mg Hydralazine HCl (Apresoline -) 50 mg PO TID [facility] Last Admin: 12/02/17 22:05 Dose: 50 mg Milrinone Lactate/Dextrose (Milrinone 20mg/100ml Ivpb -) 20,000 mcg in 100 mls @ 5.515 mls/hr IVPB TITR [facility] PRN Reason: 0.25 MCG/KG/MIN Last Admin: 12/02/17 14:26 Dose: 0.25 mcg/kg/min, 5.6 mls/hr Insulin Aspart (Novolog Vial Sliding Scale -) 1 vial SQ HS [facility] PRN Reason: Protocol Last Admin: 12/02/17 22:05 Dose: Not Given Insulin Aspart (Novolog Vial Sliding Scale -) 1 vial SQ TIDAC [facility] PRN Reason: Protocol Last Admin: 12/02/17 17:57 Dose: 2 units Insulin Detemir (Levemir Vial) 10 units SQ HS [facility] Last Admin: 12/02/17 22:06 Dose: 10 units Isosorbide Dinitrate (Isordil -) 10 mg PO TIDISORDIL [facility] Last Admin: 12/02/17 19:18 Dose: 10 mg Metoprolol Succinate (Toprol Xl -) 50 mg PO DAILY [facility] Last Admin: 12/02/17 19:17 Dose: 50 mg Sodium Bicarbonate (Sodium Bicarbonate -) 650 mg PO BID [facility] Last Admin: 12/02/17 22:05 Dose: 650 mg Tamsulosin HCl (Flomax -) 0.4 mg PO HS [facility] Last Admin: 12/02/17 22:05 Dose: 0.4 mg Torsemide (Demadex -) 80 mg PO DAILY [facility] Last Vital Signs Temp Pulse Resp BP Pulse Ox 98.6 F 66 18 129/50 97 12/02/17 22:00 12/02/17 22:00 12/02/17 22:00 12/02/17 22:00 12/02/17 20:44 lungs clear heart reg abd soft CBC, BMP 12/02/17 10:10 12/02/17 10:10 KELLI on CKD vs. progressive CKD Nephrotic Proteinuira SOB secondary to CHF exacerbation Anemia volume overload refractory do diuretics started HD Hypokalemia - may be from post hd shift will f/u in am
[2017-12-03] MEDS: hydrALAZINE HCL 50 MG TABLET (FP) PO SCH ×3 (05:48→22:08)
[2017-12-03] MEDS: INSULIN SLIDING SCALE (NOVOLOG) 1 VIAL SQ SCH ×4 (06:03→22:09)
[2017-12-03 07:34] LABS: EOS % 0.8 % (0-4.5); HEMATOCRIT 24.1 % (35.4-49); HEMOGLOBIN 8.1 GM/dL (11.7-16.9); LYMPH % 8.4 % (8-40); MCH 30.2 pg (25.7-33.7); MCHC 33.8 g/dl (32.0-35.9); MEAN CELL VOLUME 89.5 fl (80-96); MEAN PLT VOLUME 9.2 fl (7.5-11.1); MONO % 12.4 % (3.8-10.2); NEUT % 77.4 % (42.8-82.8); PLATELET COUNT 121 K/MM3 (134-434); RBC 2.69 M/mm3 (4.00-5.60); RDW 19.4 % (11.9-15.9); WHITE BLOOD COUNT 5.6 K/mm3 (4.0-10.0)
[2017-12-03 08:12] LABS: CHLORIDE 106 mmol/L (98-107); POTASSIUM 3.2 mmol/L (3.5-5.1); SODIUM 144 mmol/L (136-145)
[2017-12-03 08:18] LABS: ALBUMIN 2.4 g/dl (3.4-5.0); ALK PHOS 221 U/L (45-117); ANION GAP 8 (8-16); BILIRUBIN,TOTAL 0.6 mg/dL (0.2-1.0); BLOOD UREA NITROGEN 64 mg/dL (7-18); CALCIUM 7.3 mg/dL (8.5-10.1); CO2 30 mmol/L (21-32); CREATININE 3.8 mg/dL (0.7-1.3); GLUCOSE,RANDOM 102 mg/dL (74-106); SGOT/AST 32 U/L (15-37); SGPT/ALT 44 U/L (12-78); TOT PROT 5.5 g/dl (6.4-8.2)
[2017-12-03] MEDS: ISOSORBIDE DINITRATE 10 MG TABLET (FP) PO SCH ×3 (08:40→17:57)
[2017-12-03] MEDS: CALCIUM ACETATE 667 MG CAPSULE (FP) PO SCH ×3 (08:40→17:57)
--- NOTE | 2017-12-03 10:10 | PN ---
Progress Note, Physician History of Present Illness: No CV complaints Given K repletion after HD yesterday Tele: with NSVT (9 beats) at 03:14 - Current Medication List Current Medications: Active Medications Atorvastatin Calcium (Lipitor -) 40 mg PO HS [facility] Last Admin: 12/02/17 22:05 Dose: 40 mg Calcium Acetate (Phoslo -) 667 mg PO TIDCM [facility] Last Admin: 12/02/17 19:18 Dose: 667 mg Clopidogrel Bisulfate (Plavix -) 75 mg PO DAILY [facility] Last Admin: 12/02/17 11:18 Dose: 75 mg Hydralazine HCl (Apresoline -) 50 mg PO TID [facility] Last Admin: 12/03/17 05:48 Dose: 50 mg Milrinone Lactate/Dextrose (Milrinone 20mg/100ml Ivpb -) 20,000 mcg in 100 mls @ 5.515 mls/hr IVPB TITR [facility] PRN Reason: 0.25 MCG/KG/MIN Last Infusion: 12/03/17 05:45 Dose: 0.24 mcg/kg/min, 5.5 mls/hr Insulin Aspart (Novolog Vial Sliding Scale -) 1 vial SQ HS [facility] PRN Reason: Protocol Last Admin: 12/02/17 22:05 Dose: Not Given Insulin Aspart (Novolog Vial Sliding Scale -) 1 vial SQ TIDAC [facility] PRN Reason: Protocol Last Admin: 12/03/17 06:03 Dose: Not Given Insulin Detemir (Levemir Vial) 10 units SQ HS [facility] Last Admin: 12/02/17 22:06 Dose: 10 units Isosorbide Dinitrate (Isordil -) 10 mg PO TIDISORDIL [facility] Last Admin: 12/02/17 19:18 Dose: 10 mg Metoprolol Succinate (Toprol Xl -) 50 mg PO DAILY [facility] Last Admin: 12/02/17 19:17 Dose: 50 mg Sodium Bicarbonate (Sodium Bicarbonate -) 650 mg PO BID [facility] Last Admin: 12/02/17 22:05 Dose: 650 mg Tamsulosin HCl (Flomax -) 0.4 mg PO HS [facility] Last Admin: 12/02/17 22:05 Dose: 0.4 mg Torsemide (Demadex -) 80 mg PO DAILY [facility] - Objective Vital Signs: Vital Signs Temperature 98.6 F 12/03/17 05:35 Pulse Rate 70 12/03/17 05:35 Respiratory Rate 20 12/03/17 05:35 Blood Pressure 116/47 12/03/17 05:35 O2 Sat by Pulse Oximetry (%) 97 12/02/17 20:44 Constitutional: Yes: Well Nourished, No Distress Eyes: Yes: WNL HENT: Yes: WNL Neck: Yes: WNL Cardiovascular: Yes: Regular Rate and Rhythm Respiratory: Yes: Rales Gastrointestinal: Yes: Normal Bowel Sounds Musculoskeletal: Yes: WNL Extremities: Yes: WNL Edema: No Labs: CBC, BMP 12/03/17 06:30 12/03/17 06:30 INR, PTT INR 0.99 (0.82-1.09) 11/16/17 16:00 Assessment/Plan a/p: 67 m hx cad s/p nstemi/pci (11/2014 pt had chf with +trops so [place] [facility] [place] and GIOVANNI to pLAD, residual dLCx and ramus 50-60% both), dchf, htn, hld, dm, ckd, afib on coumadin, cva, ppm (biotronik 05/2012), remote AAA repair, pad s/p left fem stent 2015 and left toe amp here with sob. acute systolic chf: - echo here shows new systolic cardiomyopathy. will need to consider stress vs. cath once euvolemic (inpatient vs. 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 - ? etiology: r/o multivessel CAD as above. no tachyarrhythmia burden here. ? RV apical pacing cardiomyopathy--would have low threshold to consider [facility]CUS ROUSTABOUT upgrade. defer to dr liriano (outpt cardio) once HF is better optimized. -has been receiving doses of lasix 80 iv qd to bid here, with progressively worsening renal fxn, no improvement in radiographic findings. wt currently unchanged vs initial wt here (162). ? dry wt. office dry wt 09/07 visit 154 lbs -given CT chest appearance clearly c/w chf, pt needs inotrope-assisted diuresis to improve efficacy and improve renal perfusion. started milrinone 11/27. -albumin 2.3, doubt significant 3rd-spacing component -cont low dose nitrates as doing, for cardiorenal syndrome -rec increase metoprolol to target syst CHF doses later, once fluid status improved -hold JONO/ARB/spirono due to severe KELLI - 11/28: con't milrinone. uptitrate afterload reduction further. increase hydral to 50 bid. con't isordil. Will redose lasix 100 mg IV x 1 with additional metolazone. If repeat bmp overall stable this evening, will redose lasix 100 mg IV x 1 again. -11/29: cont milrinone, will give lasix 100 iv x1 today -11/30-: after several days of milrinone and high dose lasix (now on lasix gtt ) pt is still not diuresing well. Cr is also worsening. Likely esrd contributing. Will likely need need HD for volume management. -12/02: 24h UOP 1350cc, weight down to 164#. Creat down to 4.2. Continue Lasix gtt/Milrinone. Needs aggressive K repletion. -12/03: UOP 800cc, weight down to 160#, Creat down to 3.8. Off Lasix gtt now on Torsemide dosing. Remains on Milrinone. kelli on ckd: -as above VTach: -K and Mg optimized (aggressive targets) -observe tele on milrinone -cont BB as doing -NSVT overnight 12/02 likely related to ongoing milrinone. Important to keep K.4 and Mg >2. Please discuss with renal strategy for K repletion in setting of HD. Also BB being held pre-HD which may contribute the NSVT. cad/pci: -stable, no cp/angina/acs -preserved lvef echo 2017 and no ischemia on 2017 mibi, but with known cad/ residual disease now with new cardiomypathy. ischemic eval as mentioned above. -cont home bb, statin, plavix htn: -cont bb, hydral hld: -cont statin afib,aflutter,atach: -rate controlled as pt has complete heart block with ppm -Has hx of cva and was on AC and dapt previously before a prior GIB, and aortoenteric fistula. was followed by vascular at [facility], now by Dr. Ren. DAPT was deemed safe to resume in 2016 after LE stent. For now, cont plavix monotherapy. ppm (biotronik for CHB): -Normal fcn on recent office check, next routine check planned 11/2017 remote aaa repair/pad s/p multiple interventions and toe amputations : -stable, continue bp control. plavix, statin
[2017-12-03] MEDS: TORSEMIDE 20 MG TABLET (FP) PO SCH (10:38)
[2017-12-03] MEDS: SODIUM BICARBONATE 650 MG TABLET PO SCH ×2 (10:39→22:08)
[2017-12-03] MEDS: CLOPIDOGREL BISULFATE 75 MG TABLET (FP) PO SCH (10:39)
[2017-12-03] MEDS: MILRINONE 20MG/100ML IVPB - 20,000 MCG/100 ML ML IVPB SCH (11:30)
[2017-12-03] MEDS ORDERED: POTASSIUM CHLORIDE 10 MEQ in SODIUM CHLORIDE 100 ML IVPB ONE (12:00)
--- NOTE | 2017-12-03 12:41 | PN ---
Progress Note, Physician History of Present Illness: Patient still feeling tired, decreased energy. Tolerated dialysis OK (got blood with dialysis yesterday). Did have some VTach overnight on monitor. - Current Medication List Current Medications: Active Medications Atorvastatin Calcium (Lipitor -) 40 mg PO HS [facility] Last Admin: 12/02/17 22:05 Dose: 40 mg Calcium Acetate (Phoslo -) 667 mg PO TIDCM [facility] Last Admin: 12/03/17 11:30 Dose: 667 mg Clopidogrel Bisulfate (Plavix -) 75 mg PO DAILY [facility] Last Admin: 12/03/17 10:39 Dose: 75 mg Hydralazine HCl (Apresoline -) 50 mg PO TID [facility] Last Admin: 12/03/17 05:48 Dose: 50 mg Milrinone Lactate/Dextrose (Milrinone 20mg/100ml Ivpb -) 20,000 mcg in 100 mls @ 5.515 mls/hr IVPB TITR [facility] PRN Reason: 0.25 MCG/KG/MIN Last Admin: 12/03/17 11:30 Dose: 0.24 mcg/kg/min, 5.5 mls/hr Potassium Chloride 10 meq/ (Sodium Chloride) 105 mls @ 105 mls/hr IVPB ONCE ONE Stop: 12/03/17 12:59 Insulin Aspart (Novolog Vial Sliding Scale -) 1 vial SQ HS [facility] PRN Reason: Protocol Last Admin: 12/02/17 22:05 Dose: Not Given Insulin Aspart (Novolog Vial Sliding Scale -) 1 vial SQ TIDAC [facility] PRN Reason: Protocol Last Admin: 12/03/17 11:24 Dose: 2 units Insulin Detemir (Levemir Vial) [address] [facility] Last Admin: 12/02/17 22:06 Dose: 10 units Isosorbide Dinitrate (Isordil -) 10 mg PO TIDISORDIL [facility] Last Admin: 12/03/17 08:40 Dose: 10 mg Metoprolol Succinate (Toprol Xl -) 50 mg PO DAILY [facility] Last Admin: 12/03/17 10:39 Dose: 50 mg Sodium Bicarbonate (Sodium Bicarbonate -) 650 mg PO BID [facility] Last Admin: 12/03/17 10:39 Dose: 650 mg Tamsulosin HCl (Flomax -) 0.[address] [facility] Last Admin: 12/02/17 22:05 Dose: 0.4 mg Torsemide (Demadex -) 80 mg PO DAILY [facility] Last Admin: 12/03/17 10:38 Dose: 80 mg - Objective Vital Signs: Vital Signs Temperature 98.6 F 12/03/17 05:35 Pulse Rate 70 12/03/17 05:35 Respiratory Rate 20 12/03/17 05:35 Blood Pressure 116/47 12/03/17 05:35 O2 Sat by Pulse Oximetry (%) 97 12/02/17 20:44 Constitutional: Yes: No Distress, Calm Eyes: Yes: Conjunctiva Clear, EOM Intact, PERRL HENT: Yes: Atraumatic, Normocephalic Neck: Yes: Supple, Trachea Midline Cardiovascular: Yes: Regular Rate and Rhythm, S1, S2. No: Murmur Respiratory: Yes: Regular, Diminished (at bases). No: Rales, Rhonchi, Wheezes Gastrointestinal: Yes: Normal Bowel Sounds, Soft. No: Distention, Tenderness Extremities: Yes: Other (right groin with dialysis catheter) Edema: LLE: Trace, RLE: Trace Labs: CBC, BMP 12/03/17 06:30 12/03/17 06:30 INR, PTT INR 0.99 (0.82-1.09) 11/16/17 16:00 Assessment/Plan Current Active Problems Acute CHF (Acute) Cardiomyopathy Anemia Afib (not candidate for AC due to prior severe GI bleeding/ suspected aorto- enteric fistula) AAA (abdominal aortic aneurysm) (Acute) Acute on chronic renal failure (Acute) Hypoxia (Acute) Pacemaker (Acute) Pulmonary hypertension (Acute) Diabetes mellitus -continuing on milrinone for cardiac output -dialysis supportive treatment -follow blood counts for possible transfusions with dialysis
--- NOTE | 2017-12-03 13:20 | PN ---
Progress Note (short form) - Note Progress Note: Breathing feels OK. Generalized fatigue and weakness. NAD on NC O2. No acute events overnight. Intake & Output 11/30/17 12/01/17 12/02/17 12/03/17 23:59 23:59 23:59 23:59 Intake Total 424 596 942.2 161 Output Total 950 1350 800 Balance -526 -754 142.2 161 Weight 167 lb 6.4 oz 168 lb 164 lb 2 oz 160 lb 6.4 oz Last Vital Signs Temp Pulse Resp BP Pulse Ox 98.6 F 70 20 116/47 97 12/03/17 05:35 12/03/17 05:35 12/03/17 05:35 12/03/17 05:35 12/02/17 20:44 Active Medications Atorvastatin Calcium (Lipitor -) 40 mg PO HS [facility] Last Admin: 12/02/17 22:05 Dose: 40 mg Calcium Acetate (Phoslo -) 667 mg PO TIDCM [facility] Last Admin: 12/03/17 11:30 Dose: 667 mg Clopidogrel Bisulfate (Plavix -) 75 mg PO DAILY [facility] Last Admin: 12/03/17 10:39 Dose: 75 mg Hydralazine HCl (Apresoline -) 50 mg PO TID [facility] Last Admin: 12/03/17 05:48 Dose: 50 mg Milrinone Lactate/Dextrose (Milrinone 20mg/100ml Ivpb -) 20,000 mcg in 100 mls @ 5.515 mls/hr IVPB TITR [facility] PRN Reason: 0.25 MCG/KG/MIN Last Admin: 12/03/17 11:30 Dose: 0.24 mcg/kg/min, 5.5 mls/hr Insulin Aspart (Novolog Vial Sliding Scale -) 1 vial SQ HS [facility] PRN Reason: Protocol Last Admin: 12/02/17 22:05 Dose: Not Given Insulin Aspart (Novolog Vial Sliding Scale -) 1 vial SQ TIDAC [facility] PRN Reason: Protocol Last Admin: 12/03/17 11:24 Dose: 2 units Insulin Detemir (Levemir Vial) 10 units SQ HS [facility] Last Admin: 12/02/17 22:06 Dose: 10 units Isosorbide Dinitrate (Isordil -) 10 mg PO TIDISORDIL [facility] Last Admin: 12/03/17 08:40 Dose: 10 mg Metoprolol Succinate (Toprol Xl -) 50 mg PO DAILY [facility] Last Admin: 12/03/17 10:39 Dose: 50 mg Sodium Bicarbonate (Sodium Bicarbonate -) 650 mg PO BID [facility] Last Admin: 12/03/17 10:39 Dose: 650 mg Tamsulosin HCl (Flomax -) 0.4 mg PO HS [facility] Last Admin: 12/02/17 22:05 Dose: 0.4 mg Torsemide (Demadex -) 80 mg PO DAILY [facility] Last Admin: 12/03/17 10:38 Dose: 80 mg Constitutional: Yes: NAD Eyes: Yes: WNL HENT: Yes: WNL Neck: Yes: WNL Cardiovascular: Yes: Pulse Irregular, S1, S2 Respiratory: Yes: Diminished at the bases Gastrointestinal: Yes: Normal Bowel Sounds, Soft Extremities: Yes: WNL Edema: No Labs: Laboratory Results - last 24 hr 12/01/17 12/02/17 12/02/17 14:00 10:10 10:10 WBC RBC Hgb Hct MCV MCH MCHC RDW Plt Count MPV Neutrophils % Lymphocytes % Monocytes % Eosinophils % Basophils % Sodium 142 Potassium 3.0 L Chloride 105 Carbon Dioxide 27 D Anion Gap 10 BUN 74 H D Creatinine 4.2 H Creat Clearance w eGFR POC Glucometer Random Glucose 72 L D Calcium 7.2 L Phosphorus 5.8 H Cancelled Total Bilirubin AST ALT Alkaline Phosphatase Total Protein Albumin Blood Type O POSITIVE Antibody Screen Negative Crossmatch See Detail 12/02/17 12/02/17 12/03/17 17:54 22:03 05:32 WBC RBC Hgb Hct MCV MCH MCHC RDW Plt Count MPV Neutrophils % Lymphocytes % Monocytes % Eosinophils % Basophils % Sodium Potassium Chloride Carbon Dioxide Anion Gap BUN Creatinine Creat Clearance w eGFR POC Glucometer 157 179 111 Random Glucose Calcium Phosphorus Total Bilirubin AST ALT Alkaline Phosphatase Total Protein Albumin Blood Type Antibody Screen Crossmatch 12/03/17 12/03/17 12/03/17 06:30 06:30 11:21 WBC 5.6 RBC 2.69 L Hgb 8.1 L Hct 24.1 L MCV 89.5 MCH 30.2 MCHC 33.8 RDW 19.4 H Plt Count 121 L MPV 9.2 Neutrophils % 77.4 Lymphocytes % 8.4 Monocytes % 12.4 H Eosinophils % 0.8 Basophils % 1.0 Sodium 144 Potassium 3.2 L Chloride 106 Carbon Dioxide 30 Anion Gap 8 BUN 64 H Creatinine 3.8 H Creat Clearance w eGFR 15.87 POC Glucometer 166 Random Glucose 102 D Calcium 7.3 L Phosphorus Total Bilirubin 0.6 D AST 32 ALT 44 Alkaline Phosphatase 221 H D Total Protein 5.5 L Albumin 2.4 L Blood Type Antibody Screen Crossmatch Problem List - Problems (1) Acute CHF Code(s): I50.9 - HEART FAILURE, UNSPECIFIED Qualifiers: Heart failure type: diastolic Qualified Code(s): I50.31 - Acute diastolic ( congestive) heart failure (2) Acute on chronic renal failure Code(s): N17.9 - ACUTE KIDNEY FAILURE, UNSPECIFIED; N18.9 - CHRONIC KIDNEY DISEASE, UNSPECIFIED Qualifiers: Acute renal failure type: unspecified Chronic kidney disease stage: unspecified stage Qualified Code(s): N17.9 - Acute kidney failure, unspecified ; N18.9 - Chronic kidney disease, unspecified; N18.9 - Chronic kidney disease, unspecified (3) Hypoxia Code(s): R09.02 - HYPOXEMIA (4) Atrial fibrillation Code(s): I48.91 - UNSPECIFIED ATRIAL FIBRILLATION Qualifiers: Atrial fibrillation type: paroxysmal Qualified Code(s): I48.0 - Paroxysmal atrial fibrillation (5) Congestive heart failure Code(s): I50.9 - HEART FAILURE, UNSPECIFIED Qualifiers: Qualified Code(s): I50.22 - Chronic systolic (congestive) heart failure (6) Coronary artery disease Code(s): I25.10 - ATHSCL HEART DISEASE OF [place] CORONARY ARTERY W/O ANG PCTRS Qualifiers: Coronary Disease-Associated Artery/Lesion type: [place] coronary artery [place] vs. transplanted heart: [place] heart Associated angina: without angina pectoris (7) Diabetes Code(s): E11.9 - TYPE 2 DIABETES MELLITUS WITHOUT COMPLICATIONS Qualifiers: Diabetes mellitus type: type 2 Diabetes mellitus complication status: with circulatory complication (8) NSTEMI (non-ST elevated myocardial infarction) Code(s): I21.4 - NON-ST ELEVATION (NSTEMI) MYOCARDIAL INFARCTION (9) Peripheral vascular disease Code(s): I73.9 - PERIPHERAL VASCULAR DISEASE, UNSPECIFIED Assessment/Plan IMP DYSPNEA SECONDARY TO DECOMPENSATED CHF IMPROVED ASHD S/P STENT DIASTOLIC HF R PLEURAL EFFUSION PULMONARY HTN AFIB S/P PPM PULMONARY HTN DM ACUTE ON CHRONIC KIDNEY DISEASE AAA S/P REPAIR PVD HTN PLAN: O2 NEEDED DAILY WTS PLAVIX MILRINONE DEMADEX Dr Hogan
--- NOTE | 2017-12-03 17:01 | PN ---
Progress Note, Physician History of Present Illness: Pt started on HD. Remains afebrile, without new complaints. - Current Medication List Current Medications: Active Medications Atorvastatin Calcium (Lipitor -) 40 mg PO HS [facility] Last Admin: 12/02/17 22:05 Dose: 40 mg Calcium Acetate (Phoslo -) 667 mg PO TIDCM [facility] Last Admin: 12/03/17 11:30 Dose: 667 mg Clopidogrel Bisulfate (Plavix -) 75 mg PO DAILY [facility] Last Admin: 12/03/17 10:39 Dose: 75 mg Hydralazine HCl (Apresoline -) 50 mg PO TID [facility] Last Admin: 12/03/17 14:51 Dose: 50 mg Milrinone Lactate/Dextrose (Milrinone 20mg/100ml Ivpb -) 20,000 mcg in 100 mls @ 5.515 mls/hr IVPB TITR [facility] PRN Reason: 0.25 MCG/KG/MIN Last Admin: 12/03/17 11:30 Dose: 0.24 mcg/kg/min, 5.5 mls/hr Insulin Aspart (Novolog Vial Sliding Scale -) 1 vial SQ HS [facility] PRN Reason: Protocol Last Admin: 12/02/17 22:05 Dose: Not Given Insulin Aspart (Novolog Vial Sliding Scale -) 1 vial SQ TIDAC [facility] PRN Reason: Protocol Last Admin: 12/03/17 11:24 Dose: 2 units Insulin Detemir (Levemir Vial) 10 units SQ [facility] Last Admin: 12/02/17 22:06 Dose: 10 units Isosorbide Dinitrate (Isordil -) 10 mg PO TIDISORDIL [facility] Last Admin: 12/03/17 14:50 Dose: 10 mg Metoprolol Succinate (Toprol Xl -) 50 mg PO DAILY [facility] Last Admin: 12/03/17 10:39 Dose: 50 mg Sodium Bicarbonate (Sodium Bicarbonate -) 650 mg PO BID [facility] Last Admin: 12/03/17 10:39 Dose: 650 mg Tamsulosin HCl (Flomax -) 0.4 mg PO HS [facility] Last Admin: 12/02/17 22:05 Dose: 0.4 mg Torsemide (Demadex -) 80 mg PO DAILY [facility] Last Admin: 12/03/17 10:38 Dose: 80 mg - Objective Vital Signs: Vital Signs Temperature 98.5 F 12/03/17 10:00 Pulse Rate 68 04/15/18 14:49 Respiratory Rate 20 12/03/17 14:49 Blood Pressure 126/60 12/03/17 14:49 O2 Sat by Pulse Oximetry (%) 94 L 12/03/17 09:00 Constitutional: Yes: No Distress Cardiovascular: Yes: Regular Rate and Rhythm Respiratory: Yes: Diminished (bases) Gastrointestinal: Yes: Normal Bowel Sounds, Soft Neurological: Yes: Alert Labs: CBC, BMP 12/03/17 06:30 12/03/17 06:30 INR, PTT INR 0.99 (0.82-1.09) 11/16/17 16:00 Problem List - Problems (1) Acute CHF Code(s): I50.9 - HEART FAILURE, UNSPECIFIED Qualifiers: Heart failure type: diastolic Qualified Code(s): I50.31 - Acute diastolic ( congestive) heart failure (2) Acute on chronic renal failure Code(s): N17.9 - ACUTE KIDNEY FAILURE, UNSPECIFIED; N18.9 - CHRONIC KIDNEY DISEASE, UNSPECIFIED Qualifiers: Acute renal failure type: unspecified Chronic kidney disease stage: unspecified stage Qualified Code(s): N17.9 - Acute kidney failure, unspecified ; N18.9 - Chronic kidney disease, unspecified; N18.9 - Chronic kidney disease, unspecified (3) Pulmonary hypertension Code(s): I27.20 - PULMONARY HYPERTENSION, UNSPECIFIED (4) Congestive heart failure Code(s): I50.9 - HEART FAILURE, UNSPECIFIED Qualifiers: Qualified Code(s): I50.22 - Chronic systolic (congestive) heart failure (5) Hypertension Code(s): I10 - ESSENTIAL (PRIMARY) HYPERTENSION Qualifiers: Hypertension type: essential hypertension Qualified Code(s): I10 - Essential (primary) hypertension (6) NSTEMI (non-ST elevated myocardial infarction) Code(s): I21.4 - NON-ST ELEVATION (NSTEMI) MYOCARDIAL INFARCTION Assessment/Plan Serratia UTI KELLI on CKD CAD s/p [place] CHF s/p PPM - pt on HD - brief run of NSVT, Cardiology following - s/p course of antibx -- continue monitor
[2017-12-03 18:40] LABS: ANION GAP 7 (8-16); BLOOD UREA NITROGEN 66 mg/dL (7-18); CHLORIDE 106 mmol/L (98-107); CO2 30 mmol/L (21-32); CREATININE 4.1 mg/dL (0.7-1.3); GLUCOSE,RANDOM 173 mg/dL (74-106); POTASSIUM 3.4 mmol/L (3.5-5.1); SODIUM 143 mmol/L (136-145)
--- NOTE | 2017-12-03 21:44 | PN ---
Progress Note (short form) - Note Progress Note: 67M CKD Stage 3, CHF, AFib, Hypertension weakness and sob from CHF exacerbation with KELLI Current Medications Atorvastatin Calcium (Lipitor -) 40 mg PO HS [facility] Last Admin: 12/02/17 22:05 Dose: 40 mg Calcium Acetate (Phoslo -) 667 mg PO TIDCM [facility] Last Admin: 12/03/17 17:57 Dose: 667 mg Clopidogrel Bisulfate (Plavix -) 75 mg PO DAILY [facility] Last Admin: 12/03/17 10:39 Dose: 75 mg Hydralazine HCl (Apresoline -) 50 mg PO TID [facility] Last Admin: 12/03/17 14:51 Dose: 50 mg Milrinone Lactate/Dextrose (Milrinone 20mg/100ml Ivpb -) 20,000 mcg in 100 mls @ 5.515 mls/hr IVPB TITR [facility] PRN Reason: 0.25 MCG/KG/MIN Last Admin: 12/03/17 11:30 Dose: 0.24 mcg/kg/min, 5.5 mls/hr Insulin Aspart (Novolog Vial Sliding Scale -) 1 vial SQ HS [facility] PRN Reason: Protocol Last Admin: 12/02/17 22:05 Dose: Not Given Insulin Aspart (Novolog Vial Sliding Scale -) 1 vial SQ TIDAC [facility] PRN Reason: Protocol Last Admin: 12/03/17 17:08 Dose: 2 units Insulin Detemir (Levemir Vial) 10 units SQ HS [facility] Last Admin: 12/02/17 22:06 Dose: 10 units Isosorbide Dinitrate (Isordil -) 10 mg PO TIDISORDIL [facility] Last Admin: 12/03/17 17:57 Dose: 10 mg Metoprolol Succinate (Toprol Xl -) 50 mg PO DAILY [facility] Last Admin: 12/03/17 10:39 Dose: 50 mg Sodium Bicarbonate (Sodium Bicarbonate -) 650 mg PO BID [facility] Last Admin: 12/03/17 10:39 Dose: 650 mg Tamsulosin HCl (Flomax -) 0.4 mg PO HS [facility] Last Admin: 12/02/17 22:05 Dose: 0.4 mg Torsemide (Demadex -) 80 mg PO DAILY [facility] Last Admin: 12/03/17 10:38 Dose: 80 mg Last Vital Signs Temp Pulse Resp BP Pulse Ox 98.0 F 72 19 118/55 94 L 12/03/17 18:00 12/03/17 18:00 12/03/17 18:00 12/03/17 18:00 12/03/17 09:00 lungs clear heart reg abd soft CBC, BMP 12/03/17 06:30 12/03/17 17:40 CBC, BMP 12/02/17 10:10 12/02/17 10:10 KELLI on CKD vs. progressive CKD hypokalemia replacing k cautiously to avoid hyperkalemia Nephrotic Proteinuira SOB secondary to CHF exacerbation Anemia volume overload refractory do diuretics started HD HD tomorrow
[2017-12-03] MEDS: ATORVASTATIN CA 40 MG TABLET (FP) PO SCH (22:08)
[2017-12-03] MEDS: TAMSULOSIN HCL 0.4 MG CAP.ER.24H (FP) PO SCH (22:08)
[2017-12-03] MEDS: INSULIN (LEVEMIR) 100 UNITS/ML UNITS SQ SCH (22:08)
[2017-12-04] MEDS: hydrALAZINE HCL 50 MG TABLET (FP) PO SCH ×3 (05:59→21:35)
[2017-12-04] MEDS: INSULIN SLIDING SCALE (NOVOLOG) 1 VIAL SQ SCH ×4 (05:59→21:34)
[2017-12-04 06:50] LABS: EOS % 1.1 % (0-4.5); HEMATOCRIT 24.7 % (35.4-49); HEMOGLOBIN 8.3 GM/dL (11.7-16.9); LYMPH % 7.7 % (8-40); MCH 30.6 pg (25.7-33.7); MCHC 33.6 g/dl (32.0-35.9); MEAN PLT VOLUME 9.2 fl (7.5-11.1); MONO % 11.2 % (3.8-10.2); PLATELET COUNT 133 K/MM3 (134-434); RBC 2.71 M/mm3 (4.00-5.60); RDW 19.3 % (11.9-15.9); WHITE BLOOD COUNT 6.9 K/mm3 (4.0-10.0)
[2017-12-04 07:14] LABS: CHLORIDE 105 mmol/L (98-107); POTASSIUM 3.4 mmol/L (3.5-5.1); SODIUM 143 mmol/L (136-145)
[2017-12-04 07:27] LABS: ALBUMIN 2.5 g/dl (3.4-5.0); ALK PHOS 209 U/L (45-117); ANION GAP 12 (8-16); BILIRUBIN,TOTAL 0.6 mg/dL (0.2-1.0); BLOOD UREA NITROGEN 68 mg/dL (7-18); CALCIUM 7.4 mg/dL (8.5-10.1); CO2 26 mmol/L (21-32); CREATININE 4.3 mg/dL (0.7-1.3); GLUCOSE,RANDOM 131 mg/dL (74-106); SGOT/AST 23 U/L (15-37); SGPT/ALT 37 U/L (12-78); TOT PROT 5.8 g/dl (6.4-8.2)
[2017-12-04] MEDS: MILRINONE 20MG/100ML IVPB - 20,000 MCG/100 ML ML IVPB SCH ×2 (07:36→12:00)
[2017-12-04] MEDS: ISOSORBIDE DINITRATE 10 MG TABLET (FP) PO SCH ×3 (09:26→17:40)
[2017-12-04] MEDS: CALCIUM ACETATE 667 MG CAPSULE (FP) PO SCH ×3 (09:26→17:40)
[2017-12-04] MEDS: TORSEMIDE 20 MG TABLET (FP) PO SCH (09:26)
[2017-12-04] MEDS: SODIUM BICARBONATE 650 MG TABLET PO SCH ×2 (09:27→21:35)
[2017-12-04] MEDS: CLOPIDOGREL BISULFATE 75 MG TABLET (FP) PO SCH (09:27)
--- NOTE | 2017-12-04 10:25 | PN ---
Progress Note, Physician Chief Complaint: chf History of Present Illness: denies sob, cp, palpitations, leg swelling ex cigs - Current Medication List Current Medications: Active Medications Atorvastatin Calcium (Lipitor -) 40 mg PO HS [facility] Last Admin: 12/03/17 22:08 Dose: 40 mg Calcium Acetate (Phoslo -) 667 mg PO TIDCM [facility] Last Admin: 12/04/17 09:26 Dose: 667 mg Clopidogrel Bisulfate (Plavix -) 75 mg PO DAILY [facility] Last Admin: 12/04/17 09:27 Dose: 75 mg Hydralazine HCl (Apresoline -) 50 mg PO TID [facility] Last Admin: 12/04/17 05:59 Dose: 50 mg Milrinone Lactate/Dextrose (Milrinone 20mg/100ml Ivpb -) 20,000 mcg in 100 mls @ 5.515 mls/hr IVPB TITR [facility] PRN Reason: 0.25 MCG/KG/MIN Last Admin: 12/04/17 07:36 Dose: 0.24 mcg/kg/min, 5.4 mls/hr Insulin Aspart (Novolog Vial Sliding Scale -) 1 vial SQ HS [facility] PRN Reason: Protocol Last Admin: 12/03/17 22:09 Dose: 2 unit Insulin Aspart (Novolog Vial Sliding Scale -) 1 vial SQ TIDAC [facility] PRN Reason: Protocol Last Admin: 12/04/17 05:59 Dose: Not Given Insulin Detemir (Levemir Vial) [address] [facility] Last Admin: 12/03/17 22:08 Dose: 10 units Isosorbide Dinitrate (Isordil -) 10 mg PO TIDISORDIL [facility] Last Admin: 12/04/17 09:26 Dose: 10 mg Metoprolol Succinate (Toprol Xl -) 50 mg PO DAILY [facility] Last Admin: 12/04/17 09:27 Dose: 50 mg Sodium Bicarbonate (Sodium Bicarbonate -) 650 mg PO BID [facility] Last Admin: 12/04/17 09:27 Dose: 650 mg Tamsulosin HCl (Flomax -) 0.4 mg PO HS [facility] Last Admin: 12/03/17 22:08 Dose: 0.4 mg Torsemide (Demadex -) 80 mg PO DAILY [facility] Last Admin: 12/04/17 09:26 Dose: 80 mg - Objective Vital Signs: Vital Signs Temperature 98.3 F 12/04/17 02:00 Pulse Rate 70 12/04/17 02:00 Respiratory Rate 20 12/04/17 02:00 Blood Pressure 124/79 12/04/17 02:00 O2 Sat by Pulse Oximetry (%) 94 L 12/03/17 21:00 Constitutional: Yes: No Distress, Calm Eyes: No: Sclera Icterus HENT: No: Nasal Congestion Cardiovascular: Yes: Regular Rate and Rhythm, JVD, S1, S2, Other (PMI non diplaced). No: Gallop, Murmur Respiratory: Yes: CTA Bilaterally. No: Accessory Muscle Use, Rales, Wheezes Gastrointestinal: Yes: Normal Bowel Sounds, Soft. No: Tenderness Musculoskeletal: Yes: Other (No kyphosis) Extremities: No: Cold, Cyanosis Edema: No Integumentary: No: Jaundice Neurological: Yes: Alert, Oriented (x3) Psychiatric: No: Agitated Labs: CBC, BMP 12/04/17 06:30 12/04/17 06:30 INR, PTT INR 0.99 (0.82-1.09) 11/16/17 16:00 Assessment/Plan echo 10/2017: moderate concentric lvh. 1+ lve. mod-sev decreased LV sys fn, global. nl RV size. mod decreased RV sys fn. mod mitra. mod-sev mac. mod mr. mod-sev tr. rvsp > 60. trivial effusion. echo 11/2016: low nl lvef, mild lvh, nl rv, mitra, mod mr/tr, mod phtn renal u/s: chronic medical renal disease. trace free fluid in upper abdomen. bilateral pleural effusions. see emr for detailed findings. mibi 11/2016: no ischemia CT chest images reviewed with pulm: large R, small-moderate L pleural effusions , fluid in fissure areas of atx vs congestion vs infiltrate tele: V-paced a/p: 67 m hx cad s/p nstemi/pci (11/2014 pt had chf with +trops so sent for cath MSH and had rota and GIOVANNI to pLAD, residual dLCx and ramus 50-60% both), dchf, htn, hld, dm, ckd, afib on coumadin, cva, ppm (biotronik 05/2012), remote AAA repair, pad s/p left fem stent 2016 and left toe amp here with sob. acute systolic chf: - echo here shows new systolic cardiomyopathy. will need to consider stress vs. cath once euvolemic (inpatient vs. outpatient) pending course of KELLI/CKD-- this decision is better left to pt's longstanding treating staff physical therapy assistant (dr liriano), and not until HF is optimized better. - ? etiology: r/o multivessel CAD as above. no tachyarrhythmia burden here. ? RV apical pacing cardiomyopathy--would have low threshold to consider PODIATRY ASSISTANT upgrade. defer to dr liriano (outpt cardio) once HF is better optimized. -has been receiving doses of lasix 80 iv qd to bid here, with progressively worsening renal fxn, no improvement in radiographic findings. wt currently unchanged vs initial wt here (162). ? dry wt. office dry wt 09/07 visit 154 lbs -ineffective diuresis here despite milrinone, lasix with metolazone. -now started HD for ESRD with refractory fluid overload, per renal team recs -po torsemide per renal, fluid mgmt/UF per renal -12/04: wt declining. no sob, remains with marked JVD. rpt cxr -has been on milrinone for many days now. he was never hypotensive or with severe low-output sx's. given potential for milrinone toxic levels to accumulate in ESRD, will stop milrinone and observe volume status response to HD /UF -continue metoprolol. cont hydral--add nitrates later if bp can stable off inotropes kelli on ckd: -as above VTach: -K and Mg optimization (usual aggressive targets) -observe tele on milrinone -cont BB as doing cad/pci: -stable, no cp/angina/acs -preserved lvef echo 2017 and no ischemia on 2017 mibi, but with known cad/ residual disease now with new cardiomypathy. ischemic eval as mentioned above. -cont home bb, statin, plavix htn: -cont bb, hydral hld: -cont statin afib,aflutter,atach: -rate controlled as pt has complete heart block with ppm -has hx of cva and was on AC and dapt previously before a prior GIB, and aortoenteric fistula. was followed by vascular at [facility], now by Dr. Gan. DAPT was deemed safe to resume in 2016 after LE stent. For now, cont plavix monotherapy. ppm (biotronik for CHB): -Normal fcn on recent office check, next routine check planned 11/2017 remote aaa repair/pad s/p multiple interventions and toe amputations : -stable, continue bp control. plavix, statin anemia: -hgb slowly drifting down, prbcs per pmd
--- NOTE | 2017-12-04 11:39 | PN ---
Progress Note, Physician History of Present Illness: PULMONARY ALERT,COMFORTABLE,-RESP DISTRESS,REMAINS ON MILRINONE DRIP - Current Medication List Current Medications: Active Medications Atorvastatin Calcium (Lipitor -) 40 mg PO HS [facility] Last Admin: 12/03/17 22:08 Dose: 40 mg Calcium Acetate (Phoslo -) 667 mg PO TIDCM [facility] Last Admin: 12/04/17 09:26 Dose: 667 mg Clopidogrel Bisulfate (Plavix -) 75 mg PO DAILY [facility] Last Admin: 12/04/17 09:27 Dose: 75 mg Hydralazine HCl (Apresoline -) 50 mg PO TID [facility] Last Admin: 12/04/17 05:59 Dose: 50 mg Milrinone Lactate/Dextrose (Milrinone 20mg/100ml Ivpb -) 20,000 mcg in 100 mls @ 5.515 mls/hr IVPB TITR [facility] PRN Reason: 0.25 MCG/KG/MIN Last Admin: 12/04/17 07:36 Dose: 0.24 mcg/kg/min, 5.4 mls/hr Insulin Aspart (Novolog Vial Sliding Scale -) 1 vial SQ HS [facility] PRN Reason: Protocol Last Admin: 12/03/17 22:09 Dose: 2 unit Insulin Aspart (Novolog Vial Sliding Scale -) 1 vial SQ TIDAC [facility] PRN Reason: Protocol Last Admin: 12/04/17 05:59 Dose: Not Given Insulin Detemir (Levemir Vial) 10 units SQ [facility] Last Admin: 12/03/17 22:08 Dose: 10 units Isosorbide Dinitrate (Isordil -) 10 mg PO TIDISORDIL [facility] Last Admin: 12/04/17 09:26 Dose: 10 mg Metoprolol Succinate (Toprol Xl -) 50 mg PO DAILY [facility] Last Admin: 12/04/17 09:27 Dose: 50 mg Sodium Bicarbonate (Sodium Bicarbonate -) 650 mg PO BID [facility] Last Admin: 12/04/17 09:27 Dose: 650 mg Tamsulosin HCl (Flomax -) 0.4 mg PO HS [facility] Last Admin: 12/03/17 22:08 Dose: 0.4 mg Torsemide (Demadex -) 80 mg PO DAILY [facility] Last Admin: 12/04/17 09:26 Dose: 80 mg - Objective Vital Signs: Vital Signs Temperature 98.3 F 12/04/17 02:00 Pulse Rate 70 12/04/17 02:00 Respiratory Rate 20 12/04/17 02:00 Blood Pressure 124/79 12/04/17 02:00 O2 Sat by Pulse Oximetry (%) 94 L 12/03/17 21:00 Constitutional: Yes: Well Nourished, Calm Eyes: Yes: WNL HENT: Yes: WNL Neck: Yes: WNL Cardiovascular: Yes: Pulse Irregular, S1, S2 Respiratory: Yes: Rales (FE BIBASILAR RALES) Gastrointestinal: Yes: Normal Bowel Sounds, Soft Extremities: Yes: WNL Edema: Yes Edema: LLE: Trace, RLE: Trace Labs: CBC, BMP 12/04/17 06:30 12/04/17 06:30 INR, PTT INR 0.99 (0.82-1.09) 11/16/17 16:00 Problem List - Problems (1) Acute CHF Code(s): I50.9 - HEART FAILURE, UNSPECIFIED Qualifiers: Heart failure type: diastolic Qualified Code(s): I50.31 - Acute diastolic ( congestive) heart failure (2) Acute on chronic renal failure Code(s): N17.9 - ACUTE KIDNEY FAILURE, UNSPECIFIED; N18.9 - CHRONIC KIDNEY DISEASE, UNSPECIFIED Qualifiers: Acute renal failure type: unspecified Chronic kidney disease stage: unspecified stage Qualified Code(s): N17.9 - Acute kidney failure, unspecified ; N18.9 - Chronic kidney disease, unspecified; N18.9 - Chronic kidney disease, unspecified (3) Hypoxia Code(s): R09.02 - HYPOXEMIA (4) Atrial fibrillation Code(s): I48.91 - UNSPECIFIED ATRIAL FIBRILLATION Qualifiers: Atrial fibrillation type: paroxysmal Qualified Code(s): I48.0 - Paroxysmal atrial fibrillation (5) Congestive heart failure Code(s): I50.9 - HEART FAILURE, UNSPECIFIED Qualifiers: Qualified Code(s): I50.22 - Chronic systolic (congestive) heart failure (6) Coronary artery disease Code(s): I25.10 - ATHSCL HEART DISEASE OF [place] CORONARY ARTERY W/O ANG PCTRS Qualifiers: Coronary Disease-Associated Artery/Lesion type: [place] coronary artery [place] vs. transplanted heart: [place] heart Associated angina: without angina pectoris (7) Diabetes Code(s): E11.9 - TYPE 2 DIABETES MELLITUS WITHOUT COMPLICATIONS Qualifiers: Diabetes mellitus type: type 2 Diabetes mellitus complication status: with circulatory complication (8) NSTEMI (non-ST elevated myocardial infarction) Code(s): I21.4 - NON-ST ELEVATION (NSTEMI) MYOCARDIAL INFARCTION (9) Peripheral vascular disease Code(s): I73.9 - PERIPHERAL VASCULAR DISEASE, UNSPECIFIED Assessment/Plan IMP DYSPNEA SECONDARY TO DECOMPENSATED CHF IMPROVED ASHD S/P STENT DIASTOLIC HF R PLEURAL EFFUSION PULMONARY HTN AFIB S/P PPM PULMONARY HTN DM ACUTE ON CHRONIC KIDNEY DISEASE AAA S/P REPAIR PVD HTN ANEMIA PLAN MILRINONE DRIP PER CARDIOLOGY DEMADEX O2 DAILY WTS PLAVIX MONITOR LYTES,RENAL FUNCTION NORMAL TRANSFUSION THRESHOLD MONITOR H+H DR SO Problem List - Problems (1) Acute CHF Code(s): I50.9 - HEART FAILURE, UNSPECIFIED Qualifiers: Heart failure type: unspecified Qualified Code(s): I50.9 - Heart failure, unspecified (2) Acute on chronic renal failure Code(s): N17.9 - ACUTE KIDNEY FAILURE, UNSPECIFIED; N18.9 - CHRONIC KIDNEY DISEASE, UNSPECIFIED Qualifiers: Acute renal failure type: unspecified Chronic kidney disease stage: unspecified stage Qualified Code(s): N17.9 - Acute kidney failure, unspecified ; N18.9 - Chronic kidney disease, unspecified; N18.9 - Chronic kidney disease, unspecified (3) Hypoxia Code(s): R09.02 - HYPOXEMIA (4) Atrial fibrillation Code(s): I48.91 - UNSPECIFIED ATRIAL FIBRILLATION Qualifiers: Atrial fibrillation type: paroxysmal Qualified Code(s): I48.0 - Paroxysmal atrial fibrillation (5) Congestive heart failure Code(s): I50.9 - HEART FAILURE, UNSPECIFIED Qualifiers: Qualified Code(s): I50.22 - Chronic systolic (congestive) heart failure (6) Coronary artery disease Code(s): I25.10 - ATHSCL HEART DISEASE OF [place] CORONARY ARTERY W/O ANG PCTRS Qualifiers: Coronary Disease-Associated Artery/Lesion type: [place] coronary artery [place] vs. transplanted heart: [place] heart Associated angina: without angina pectoris (7) Diabetes Code(s): E11.9 - TYPE 2 DIABETES MELLITUS WITHOUT COMPLICATIONS Qualifiers: Diabetes mellitus type: type 2 Diabetes mellitus complication status: with circulatory complication (8) NSTEMI (non-ST elevated myocardial infarction) Code(s): I21.4 - NON-ST ELEVATION (NSTEMI) MYOCARDIAL INFARCTION (9) Peripheral vascular disease Code(s): I73.9 - PERIPHERAL VASCULAR DISEASE, UNSPECIFIED
--- NOTE | 2017-12-04 12:20 | PN ---
Progress Note, Physician Chief Complaint: Mr Howard says he feels a little better today. No cp, sob, n/v. Tolerating HD without issue. - Current Medication List Current Medications: Active Medications Atorvastatin Calcium (Lipitor -) 40 mg PO HS [facility] Last Admin: 12/03/17 22:08 Dose: 40 mg Calcium Acetate (Phoslo -) 667 mg PO TIDCM [facility] Last Admin: 12/04/17 12:00 Dose: 667 mg Clopidogrel Bisulfate (Plavix -) 75 mg PO DAILY [facility] Last Admin: 12/04/17 09:27 Dose: 75 mg Hydralazine HCl (Apresoline -) 50 mg PO TID [facility] Last Admin: 12/04/17 05:59 Dose: 50 mg Milrinone Lactate/Dextrose (Milrinone 20mg/100ml Ivpb -) 20,000 mcg in 100 mls @ 5.515 mls/hr IVPB TITR [facility] PRN Reason: 0.25 MCG/KG/MIN Last Admin: 12/04/17 12:00 Dose: Not Given Insulin Aspart (Novolog Vial Sliding Scale -) 1 vial SQ HS [facility] PRN Reason: Protocol Last Admin: 12/03/17 22:09 Dose: 2 unit Insulin Aspart (Novolog Vial Sliding Scale -) 1 vial SQ TIDAC [facility] PRN Reason: Protocol Last Admin: 12/04/17 12:01 Dose: 3 units Insulin Detemir (Levemir Vial) 10 units SQ HS [facility] Last Admin: 12/03/17 22:08 Dose: 10 units Isosorbide Dinitrate (Isordil -) 10 mg PO TIDISORDIL [facility] Last Admin: 12/04/17 12:01 Dose: Not Given Metoprolol Succinate (Toprol Xl -) 50 mg PO DAILY [facility] Last Admin: 12/04/17 09:27 Dose: 50 mg Sodium Bicarbonate (Sodium Bicarbonate -) 650 mg PO BID [facility] Last Admin: 12/04/17 09:27 Dose: 650 mg Tamsulosin HCl (Flomax -) 0.4 mg PO HS [facility] Last Admin: 12/03/17 22:08 Dose: 0.4 mg Torsemide (Demadex -) 80 mg PO DAILY [facility] Last Admin: 12/04/17 09:26 Dose: 80 mg - Objective Vital Signs: Vital Signs Temperature 36.8 C 12/04/17 02:00 Pulse Rate 70 12/04/17 02:00 Respiratory Rate 20 12/04/17 02:00 Blood Pressure 124/79 12/04/17 02:00 O2 Sat by Pulse Oximetry (%) 94 L 12/03/17 21:00 Constitutional: Yes: Well Nourished, No Distress, Calm Cardiovascular: Yes: Pulse Irregular. No: Tachycardia, Gallop, Murmur, Rub Respiratory: Yes: Regular, Rhonchi (slight bibasilar). No: CTA Bilaterally, Rales, Wheezes Gastrointestinal: Yes: Normal Bowel Sounds, Soft. No: Distention, Tenderness Extremities: Yes: WNL Edema: No Labs: CBC, BMP 12/04/17 06:30 12/04/17 06:30 INR, PTT INR 0.99 (0.82-1.09) 11/16/17 16:00 Problem List - Problems (1) Acute CHF Code(s): I50.9 - HEART FAILURE, UNSPECIFIED Qualifiers: Heart failure type: diastolic Qualified Code(s): I50.31 - Acute diastolic ( congestive) heart failure (2) Acute on chronic renal failure Code(s): N17.9 - ACUTE KIDNEY FAILURE, UNSPECIFIED; N18.9 - CHRONIC KIDNEY DISEASE, UNSPECIFIED Qualifiers: Acute renal failure type: unspecified Chronic kidney disease stage: unspecified stage Qualified Code(s): N17.9 - Acute kidney failure, unspecified ; N18.9 - Chronic kidney disease, unspecified; N18.9 - Chronic kidney disease, unspecified (3) Hypoxia Code(s): R09.02 - HYPOXEMIA (4) Atrial fibrillation Code(s): I48.91 - UNSPECIFIED ATRIAL FIBRILLATION Qualifiers: Atrial fibrillation type: paroxysmal Qualified Code(s): I48.0 - Paroxysmal atrial fibrillation (5) Diabetes Code(s): E11.9 - TYPE 2 DIABETES [place] WITHOUT COMPLICATIONS Qualifiers: Diabetes mellitus type: type 2 Diabetes mellitus complication status: with circulatory complication (6) Hypertension Code(s): I10 - ESSENTIAL (PRIMARY) HYPERTENSION Qualifiers: Hypertension type: essential hypertension Qualified Code(s): I10 - Essential (primary) hypertension Assessment/Plan (1) Acute CHF Assessment/Plan: -appreciate cardiology and nephrology assistance -on HD now -on milrinone, defer to cardiology when to discontinue this -nephrology to decide if this is adjunct faculty for medical terminology treatment or if only needs HD in hospital Code(s): I50.9 - HEART FAILURE, UNSPECIFIED Qualifiers: Heart failure type: diastolic Qualified Code(s): I50.31 - Acute diastolic ( congestive) heart failure (2) Acute on chronic renal failure Assessment/Plan: -currently on HD -nephrology to decide if this is adjunct faculty for medical terminology/permanent Code(s): N17.9 - ACUTE KIDNEY FAILURE, UNSPECIFIED; N18.9 - CHRONIC KIDNEY DISEASE, UNSPECIFIED Qualifiers: Acute renal failure type: unspecified Chronic kidney disease stage: unspecified stage Qualified Code(s): N17.9 - Acute kidney failure, unspecified ; N18.9 - Chronic kidney disease, unspecified; N18.9 - Chronic kidney disease, unspecified (3) Hypoxia Assessment/Plan: -resolved Code(s): R09.02 - HYPOXEMIA (4) Atrial fibrillation Assessment/Plan: -rate controlled -cardiology following -continue plavix, not on AC Code(s): I48.91 - UNSPECIFIED ATRIAL FIBRILLATION Qualifiers: Atrial fibrillation type: paroxysmal Qualified Code(s): I48.0 - Paroxysmal atrial fibrillation (5) Diabetes Assessment/Plan: -continue current regimen Code(s): E11.9 - TYPE 2 DIABETES [place] WITHOUT COMPLICATIONS Qualifiers: Diabetes mellitus type: type 2 Diabetes mellitus complication status: with circulatory complication (6) Hypertension Assessment/Plan: -on toprol xl, hydralazine, isordil, and torsemide -controlled Code(s): I10 - ESSENTIAL (PRIMARY) HYPERTENSION Qualifiers: Hypertension type: essential hypertension Qualified Code(s): I10 - Essential (primary) hypertension (7) UTI -finished full course zosyn
--- NOTE | 2017-12-04 14:59 | PN ---
Progress Note (short form) - Note Progress Note: Patient day #4 s/p right femoral shiley placed. HD on 12/01, 12/02, 12/04 Catheter site is clean. Problem List - Problems (1) Acute on chronic renal failure Assessment/Plan: Will patient need oil heaterman vs. lifelong access. Await Nephrology input. Vascular Surgery to cont following Cont medical management Code(s): N17.9 - ACUTE KIDNEY FAILURE, UNSPECIFIED; N18.9 - CHRONIC KIDNEY DISEASE, UNSPECIFIED Qualifiers: Acute renal failure type: unspecified Chronic kidney disease stage: unspecified stage Qualified Code(s): N17.9 - Acute kidney failure, unspecified ; N18.9 - Chronic kidney disease, unspecified; N18.9 - Chronic kidney disease, unspecified
--- NOTE | 2017-12-04 15:50 | PN ---
Progress Note, Physician Chief Complaint: The patient seen in his room. HD in progress using Femoral catheter. Seems comfortable. No chest pain, No shortness of breath. No urinary complaints. - Current Medication List Current Medications: Active Medications Atorvastatin Calcium (Lipitor -) 40 mg PO [facility] Last Admin: 12/03/17 22:08 Dose: 40 mg Calcium Acetate (Phoslo -) 667 mg PO TIDCM [facility] Last Admin: 12/04/17 12:00 Dose: 667 mg Clopidogrel Bisulfate (Plavix -) 75 mg PO DAILY [facility] Last Admin: 12/04/17 09:27 Dose: 75 mg Hydralazine HCl (Apresoline -) 50 mg PO TID [facility] Last Admin: 12/04/17 14:52 Dose: 50 mg Insulin Aspart (Novolog Vial Sliding Scale -) 1 vial SQ [facility] PRN Reason: Protocol Last Admin: 12/03/17 22:09 Dose: 2 unit Insulin Aspart (Novolog Vial Sliding Scale -) 1 vial SQ TIDAC [facility] PRN Reason: Protocol Last Admin: 12/04/17 12:01 Dose: 3 units Insulin Detemir (Levemir Vial) 10 units SQ [facility] Last Admin: 12/03/17 22:08 Dose: 10 units Isosorbide Dinitrate (Isordil -) 10 mg PO TIDISORDIL [facility] Last Admin: 12/04/17 12:01 Dose: Not Given Metoprolol Succinate (Toprol Xl -) 50 mg PO DAILY [facility] Last Admin: 12/04/17 09:27 Dose: 50 mg Sodium Bicarbonate (Sodium Bicarbonate -) 650 mg PO BID [facility] Last Admin: 12/04/17 09:27 Dose: 650 mg Tamsulosin HCl (Flomax -) 0.4 mg PO [facility] Last Admin: 12/03/17 22:08 Dose: 0.4 mg Torsemide (Demadex -) 80 mg PO DAILY [facility] Last Admin: 12/04/17 09:26 Dose: 80 mg - Objective Vital Signs: Vital Signs Temperature 98.6 F 12/04/17 14:00 Pulse Rate 69 12/04/17 15:10 Respiratory Rate 18 12/04/17 15:10 Blood Pressure 129/63 12/04/17 15:10 O2 Sat by Pulse Oximetry (%) 95 12/04/17 09:00 Constitutional: Yes: Anxious HENT: Yes: Normocephalic Cardiovascular: Yes: Regular Rate and Rhythm, S1, S2 Respiratory: Yes: Diminished, Rales, Rhonchi Gastrointestinal: Yes: Normal Bowel Sounds, Soft Labs: CBC, BMP 12/04/17 06:30 12/04/17 06:30 INR, PTT INR 0.99 (0.82-1.09) 11/16/17 16:00 Problem List - Problems (1) AAA (abdominal aortic aneurysm) Code(s): I71.4 - ABDOMINAL AORTIC ANEURYSM, WITHOUT RUPTURE (2) Acute CHF Code(s): I50.9 - HEART FAILURE, UNSPECIFIED Qualifiers: Heart failure type: diastolic Qualified Code(s): I50.31 - Acute diastolic ( congestive) heart failure (3) Acute on chronic renal failure Code(s): N17.9 - ACUTE KIDNEY FAILURE, UNSPECIFIED; N18.9 - CHRONIC KIDNEY DISEASE, UNSPECIFIED Qualifiers: Acute renal failure type: unspecified Chronic kidney disease stage: unspecified stage Qualified Code(s): N17.9 - Acute kidney failure, unspecified ; N18.9 - Chronic kidney disease, unspecified; N18.9 - Chronic kidney disease, unspecified (4) Acute kidney injury Code(s): N17.9 - ACUTE KIDNEY FAILURE, UNSPECIFIED (5) Atherosclerosis of [place] arteries of extremities with gangrene, left leg Code(s): I70.262 - ATHSCL [place] ARTERIES OF EXTREMITIES W [place], LEFT LEG (6) Atrial fibrillation Code(s): I48.91 - UNSPECIFIED ATRIAL FIBRILLATION Qualifiers: Atrial fibrillation type: paroxysmal Qualified Code(s): I48.0 - Paroxysmal atrial fibrillation (7) Hypertension Code(s): I10 - ESSENTIAL (PRIMARY) HYPERTENSION Qualifiers: Hypertension type: essential hypertension Qualified Code(s): I10 - Essential (primary) hypertension Assessment/Plan KELLI on CKD . The underlying CKD is fairky signifiucant. Congestive heart failure, and fluid overload. HD well tolerated. UF goal set and well tyolerated. Anemia of CKD. volume overload refractory do diuretics. Started HD. HD well tolerated. Femoral catheter may have to be replaced by IJ catheter if continued dialysis is needed. Thank you. Lupe Mayo MD
--- NOTE | 2017-12-04 16:25 | PN ---
Progress Note, Physician History of Present Illness: stable no new issues - Current Medication List Current Medications: Active Medications Atorvastatin Calcium (Lipitor -) 40 mg PO HS [facility] Last Admin: 12/03/17 22:08 Dose: 40 mg Calcium Acetate (Phoslo -) 667 mg PO TIDCM [facility] Last Admin: 12/04/17 12:00 Dose: 667 mg Clopidogrel Bisulfate (Plavix -) 75 mg PO DAILY [facility] Last Admin: 12/04/17 09:27 Dose: 75 mg Hydralazine HCl (Apresoline -) 50 mg PO TID [facility] Last Admin: 12/04/17 14:52 Dose: 50 mg Insulin Aspart (Novolog Vial Sliding Scale -) 1 vial SQ HS [facility] PRN Reason: Protocol Last Admin: 12/03/17 22:09 Dose: 2 unit Insulin Aspart (Novolog Vial Sliding Scale -) 1 vial SQ TIDAC [facility] PRN Reason: Protocol Last Admin: 12/04/17 12:01 Dose: 3 units Insulin Detemir (Levemir Vial) 10 units SQ [facility] Last Admin: 12/03/17 22:08 Dose: 10 units Isosorbide Dinitrate (Isordil -) 10 mg PO TIDISORDIL [facility] Last Admin: 12/04/17 12:01 Dose: Not Given Metoprolol Succinate (Toprol Xl -) 50 mg PO DAILY [facility] Last Admin: 12/04/17 09:27 Dose: 50 mg Sodium Bicarbonate (Sodium Bicarbonate -) 650 mg PO BID [facility] Last Admin: 12/04/17 09:27 Dose: 650 mg Tamsulosin HCl (Flomax -) 0.4 mg PO HS [facility] Last Admin: 12/03/17 22:08 Dose: 0.4 mg Torsemide (Demadex -) 80 mg PO DAILY [facility] Last Admin: 12/04/17 09:26 Dose: 80 mg - Objective Vital Signs: Vital Signs Temperature 98.6 F 12/04/17 14:00 Pulse Rate 69 12/04/17 15:10 Respiratory Rate 18 12/04/17 15:10 Blood Pressure 129/63 12/04/17 15:10 O2 Sat by Pulse Oximetry (%) 95 12/04/17 09:00 Constitutional: Yes: No Distress, Calm Cardiovascular: Yes: S1, S2 Respiratory: Yes: Regular, CTA Bilaterally Gastrointestinal: Yes: Normal Bowel Sounds, Soft Musculoskeletal: Yes: WNL Extremities: Yes: WNL Neurological: Yes: Alert, Oriented Psychiatric: Yes: Alert Labs: CBC, BMP 12/04/17 06:30 12/04/17 06:30 INR, PTT INR 0.99 (0.82-1.09) 11/16/17 16:00 Assessment/Plan Problem List - Problems (1) Acute CHF Code(s): I50.9 - HEART FAILURE, UNSPECIFIED Qualifiers: Heart failure type: diastolic Qualified Code(s): I50.31 - Acute diastolic ( congestive) heart failure (2) Acute on chronic renal failure Code(s): N17.9 - ACUTE KIDNEY FAILURE, UNSPECIFIED; N18.9 - CHRONIC KIDNEY DISEASE, UNSPECIFIED Qualifiers: Acute renal failure type: unspecified Chronic kidney disease stage: unspecified stage Qualified Code(s): N17.9 - Acute kidney failure, unspecified ; N18.9 - Chronic kidney disease, unspecified; N18.9 - Chronic kidney disease, unspecified (3) Hypoxia Code(s): R09.02 - HYPOXEMIA (4) Atrial fibrillation Code(s): I48.91 - UNSPECIFIED ATRIAL FIBRILLATION Qualifiers: Atrial fibrillation type: paroxysmal Qualified Code(s): I48.0 - Paroxysmal atrial fibrillation (5) Diabetes Code(s): E11.9 - TYPE 2 DIABETES MELLITUS WITHOUT COMPLICATIONS Qualifiers: Diabetes mellitus type: type 2 Diabetes mellitus complication status: with circulatory complication (6) Hypertension Code(s): I10 - ESSENTIAL (PRIMARY) HYPERTENSION Qualifiers: Hypertension type: essential hypertension Qualified Code(s): I10 - Essential (primary) hypertension (7) UTI complicated plan off of abx rest continue current mgmt cardio on case rest continue as per primary team
[2017-12-04] MEDS: ATORVASTATIN CA 40 MG TABLET (FP) PO SCH (21:35)
[2017-12-04] MEDS: TAMSULOSIN HCL 0.4 MG CAP.ER.24H (FP) PO SCH (21:35)
[2017-12-04] MEDS: INSULIN (LEVEMIR) 100 UNITS/ML UNITS SQ SCH (21:35)
[2017-12-05] MEDS: hydrALAZINE HCL 50 MG TABLET (FP) PO SCH ×3 (06:25→21:45)
[2017-12-05] MEDS: INSULIN SLIDING SCALE (NOVOLOG) 1 VIAL SQ SCH ×4 (06:25→21:46)
[2017-12-05 06:59] LABS: EOS % 0.9 % (0-4.5); HEMATOCRIT 26.4 % (35.4-49); HEMOGLOBIN 8.7 GM/dL (11.7-16.9); LYMPH % 8.7 % (8-40); MCH 29.9 pg (25.7-33.7); MCHC 32.9 g/dl (32.0-35.9); MEAN CELL VOLUME 90.8 fl (80-96); MEAN PLT VOLUME 9.2 fl (7.5-11.1); MONO % 11.3 % (3.8-10.2); NEUT % 78.1 % (42.8-82.8); PLATELET COUNT 127 K/MM3 (134-434); RBC 2.91 M/mm3 (4.00-5.60); RDW 19.5 % (11.9-15.9)
[2017-12-05 07:21] LABS: BLOOD UREA NITROGEN 50 mg/dL (7-18); CALCIUM 7.8 mg/dL (8.5-10.1); CHLORIDE 106 mmol/L (98-107); MAGNESIUM 2.2 mg/dL (1.8-2.4); POTASSIUM 3.5 mmol/L (3.5-5.1); SODIUM 145 mmol/L (136-145)
[2017-12-05 07:22] LABS: ANION GAP 9 (8-16); CO2 30 mmol/L (21-32); CREATININE 3.4 mg/dL (0.7-1.3); GLUCOSE,RANDOM 114 mg/dL (74-106); PHOSPHOROUS 3.2 mg/dL (2.5-4.9)
[2017-12-05] MEDS: CALCIUM ACETATE 667 MG CAPSULE (FP) PO SCH ×3 (08:21→17:11)
[2017-12-05] MEDS: ISOSORBIDE DINITRATE 10 MG TABLET (FP) PO SCH ×3 (08:21→17:11)
[2017-12-05] MEDS: TORSEMIDE 20 MG TABLET (FP) PO SCH (09:31)
[2017-12-05] MEDS: SODIUM BICARBONATE 650 MG TABLET PO SCH ×2 (09:33→21:45)
[2017-12-05] MEDS: CLOPIDOGREL BISULFATE 75 MG TABLET (FP) PO SCH (09:33)
--- NOTE | 2017-12-05 11:26 | PN ---
Progress Note (short form) - Note Progress Note: Renal follow up for KELLI on CKD Pt seen and examined at the bedside reports feeling better s/p dialysis yesterday with 2kg UF no sob, chest pain, abd pain, N/V/D Vital Signs Temperature 98.9 F 12/05/17 06:00 Pulse Rate 72 12/05/17 06:00 Respiratory Rate 20 12/05/17 06:00 Blood Pressure 134/66 12/05/17 06:00 O2 Sat by Pulse Oximetry (%) 95 12/04/17 21:00 Intake & Output 12/02/17 12/03/17 12/04/17 12/05/17 23:59 23:59 23:59 23:59 Intake Total 942.2 405 116 Output Total 800 200 Balance 142.2 205 116 Weight 74.446 kg 72.756 kg 71.849 kg 70.987 kg NAD, awake and alert RRR No rales, wheeze, crackles NO LE edema CBC, BMP 12/05/17 06:30 12/05/17 06:30 Current Medications Atorvastatin Calcium (Lipitor -) 40 mg PO HS [facility] Last Admin: 12/04/17 21:35 Dose: 40 mg Calcium Acetate (Phoslo -) 667 mg PO TIDCM [facility] Last Admin: 12/05/17 08:21 Dose: 667 mg Clopidogrel Bisulfate (Plavix -) 75 mg PO DAILY [facility] Last Admin: 12/05/17 09:33 Dose: 75 mg Hydralazine HCl (Apresoline -) 50 mg PO TID [facility] Last Admin: 12/05/17 06:25 Dose: 50 mg Insulin Aspart (Novolog Vial Sliding Scale -) 1 vial SQ HS [facility] PRN Reason: Protocol Last Admin: 12/04/17 21:34 Dose: 2 unit Insulin Aspart (Novolog Vial Sliding Scale -) 1 vial SQ TIDAC [facility] PRN Reason: Protocol Last Admin: 12/05/17 06:25 Dose: Not Given Insulin Detemir (Levemir Vial) 10 units SQ HS [facility] Last Admin: 12/04/17 21:35 Dose: 10 units Isosorbide Dinitrate (Isordil -) 10 mg PO TIDISORDIL [facility] Last Admin: 12/05/17 08:21 Dose: 10 mg Metoprolol Succinate (Toprol Xl -) 50 mg PO DAILY [facility] Last Admin: 12/05/17 09:33 Dose: 50 mg Sodium Bicarbonate (Sodium Bicarbonate -) 650 mg PO BID [facility] Last Admin: 12/05/17 09:33 Dose: 650 mg Tamsulosin HCl (Flomax -) 0.4 mg PO HS [facility] Last Admin: 12/04/17 21:35 Dose: 0.4 mg Torsemide (Demadex -) 80 mg PO DAILY [facility] Last Admin: 12/05/17 09:31 Dose: 80 mg 67 year old gentleman with PMhx of CKD Stage 3, CHF, AFib, Hypertension who presented with weakness and sob and found to have CHF exacerbation with KELLI #Progressive CKD likely due to diabetic nephropathy now ESRD requiring dialysis #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
--- NOTE | 2017-12-05 11:28 | SPA.PREOP ---
- PRE-OP NOTE Dx: acute on chronic renal failure Planned Procedure: Permacatheter insertion Surgeon: Conor Canchola Consent: To be obtained by surgeon after risks, benefits and alternatives explained to patient and or HCP. Last Vital Signs Temp Pulse Resp BP Pulse Ox 98.9 F 72 20 134/66 95 12/05/17 06:00 12/05/17 06:00 12/05/17 06:00 12/05/17 06:00 12/04/17 21:00 Lab Results WBC 6.0 K/mm3 (4.0-10.0) 12/05/17 06:30 RBC 2.91 M/mm3 (4.00-5.60) L 12/05/17 06:30 Hgb 8.7 GM/dL (11.7-16.9) L 12/05/17 06:30 Hct 26.4 % (35.4-49) L 12/05/17 06:30 MCV 90.8 fl (80-96) 12/05/17 06:30 MCHC 32.9 g/dl (32.0-35.9) 12/05/17 06:30 RDW 19.5 % (11.9-15.9) H 12/05/17 06:30 Plt Count 127 K/MM3 (134-434) L 12/05/17 06:30 Sodium 145 mmol/L (136-145) 12/05/17 06:30 Potassium 3.5 mmol/L (3.5-5.1) 12/05/17 06:30 Chloride 106 mmol/L (98-107) 12/05/17 06:30 Carbon Dioxide 30 mmol/L (21-32) 12/05/17 06:30 Anion Gap 9 (8-16) 12/05/17 06:30 BUN 50 mg/dL (7-18) H D 12/05/17 06:30 Creatinine 3.4 mg/dL (0.7-1.3) H D 12/05/17 06:30 Random Glucose 114 mg/dL (74-106) H 12/05/17 06:30 Calcium 7.8 mg/dL (8.5-10.1) L 12/05/17 06:30 Blood Type O POSITIVE 12/01/17 14:00 Antibody Screen Negative 12/01/17 14:00 INR 0.99 (0.82-1.09) 11/16/17 16:00 - ASSESSMENT/PLAN Problem List - Problems (1) Acute on chronic renal failure Assessment/Plan: 1. Taking to OR on 12/07/17 1. Make NPO after midnight except PO meds 2. GI/DVT PPX 3. Medical optimization / clearance Code(s): N17.9 - ACUTE KIDNEY FAILURE, UNSPECIFIED; N18.9 - CHRONIC KIDNEY DISEASE, UNSPECIFIED Qualifiers: Qualified Code(s): N17.9 - Acute kidney failure, unspecified; N18.9 - Chronic kidney disease, unspecified; N18.9 - Chronic kidney disease, unspecified Visit type - Case Type Case Type: ED Admission
--- NOTE | 2017-12-05 11:45 | PN ---
Progress Note, Physician History of Present Illness: PULMONARY ALERT,COMFORTABLE -RESP DISTRESS. PT OFF MILRINONE DRIP - Current Medication List Current Medications: Active Medications Atorvastatin Calcium (Lipitor -) 40 mg PO HS [facility] Last Admin: 12/04/17 21:35 Dose: 40 mg Calcium Acetate (Phoslo -) 667 mg PO TIDCM [facility] Last Admin: 12/05/17 08:21 Dose: 667 mg Clopidogrel Bisulfate (Plavix -) 75 mg PO DAILY [facility] Last Admin: 12/05/17 09:33 Dose: 75 mg Epoetin Romeo (Epogen -) 10,000 unit IVPUSH ONCE ONE Stop: 12/06/17 06:01 Heparin Sodium (Porcine) (Heparin -) 1,000 unit IVPUSH ONCE ONE Stop: 12/06/17 06:01 Hydralazine HCl (Apresoline -) 50 mg PO TID [facility] Last Admin: 12/05/17 06:25 Dose: 50 mg Sodium Chloride (Normal Saline -) 250 mls @ 3,000 mls/hr IV PRN PRN PRN Reason: Hypotension during Dialysis Stop: 12/06/17 11:26 Iron Sucrose 100 mg/ Sodium (Chloride) 100 mls @ 200 mls/hr IVPB ONCE ONE Stop: 12/06/17 07:29 Insulin Aspart (Novolog Vial Sliding Scale -) 1 vial SQ HS [facility] PRN Reason: Protocol Last Admin: 12/04/17 21:34 Dose: 2 unit Insulin Aspart (Novolog Vial Sliding Scale -) 1 vial SQ TIDAC [facility] PRN Reason: Protocol Last Admin: 12/05/17 11:40 Dose: Not Given Insulin Detemir (Levemir Vial) 10 units SQ HS [facility] Last Admin: 12/04/17 21:35 Dose: 10 units Isosorbide Dinitrate (Isordil -) 10 mg PO TIDISORDIL [facility] Last Admin: 12/05/17 08:21 Dose: 10 mg Metoprolol Succinate (Toprol Xl -) 50 mg PO DAILY [facility] Last Admin: 12/05/17 09:33 Dose: 50 mg Sodium Bicarbonate (Sodium Bicarbonate -) 650 mg PO BID [facility] Last Admin: 12/05/17 09:33 Dose: 650 mg Tamsulosin HCl (Flomax -) 0.4 mg PO HS [facility] Last Admin: 12/04/17 21:35 Dose: 0.4 mg Torsemide (Demadex -) 80 mg PO DAILY [facility] Last Admin: 12/05/17 09:31 Dose: 80 mg - Objective Vital Signs: Vital Signs Temperature 98.9 F 12/05/17 06:00 Pulse Rate 72 12/05/17 06:00 Respiratory Rate 20 12/05/17 06:00 Blood Pressure 134/66 12/05/17 06:00 O2 Sat by Pulse Oximetry (%) 95 12/04/17 21:00 Constitutional: Yes: Well Nourished, Calm Eyes: Yes: WNL HENT: Yes: WNL Neck: Yes: WNL Cardiovascular: Yes: Pulse Irregular, S1, S2 Respiratory: Yes: Diminished Gastrointestinal: Yes: Normal Bowel Sounds, Soft Extremities: Yes: WNL Edema: No Labs: CBC, BMP 12/05/17 06:30 12/05/17 06:30 INR, PTT INR 0.99 (0.82-1.09) 11/16/17 16:00 Problem List - Problems (1) Acute CHF Code(s): I50.9 - HEART FAILURE, UNSPECIFIED Qualifiers: Heart failure type: diastolic Qualified Code(s): I50.31 - Acute diastolic ( congestive) heart failure (2) Acute on chronic renal failure Code(s): N17.9 - ACUTE KIDNEY FAILURE, UNSPECIFIED; N18.9 - CHRONIC KIDNEY DISEASE, UNSPECIFIED Qualifiers: Acute renal failure type: unspecified Chronic kidney disease stage: unspecified stage Qualified Code(s): N17.9 - Acute kidney failure, unspecified ; N18.9 - Chronic kidney disease, unspecified; N18.9 - Chronic kidney disease, unspecified (3) Hypoxia Code(s): R09.02 - HYPOXEMIA (4) Atrial fibrillation Code(s): I48.91 - UNSPECIFIED ATRIAL FIBRILLATION Qualifiers: Atrial fibrillation type: paroxysmal Qualified Code(s): I48.0 - Paroxysmal atrial fibrillation (5) Congestive heart failure Code(s): I50.9 - HEART FAILURE, UNSPECIFIED Qualifiers: Qualified Code(s): I50.22 - Chronic systolic (congestive) heart failure (6) Coronary artery disease Code(s): I25.10 - ATHSCL HEART DISEASE OF [place] CORONARY ARTERY W/O ANG PCTRS Qualifiers: Coronary Disease-Associated Artery/Lesion type: [place] coronary artery [place] vs. transplanted heart: [place] heart Associated angina: without angina pectoris (7) Diabetes Code(s): E11.9 - TYPE 2 DIABETES MELLITUS WITHOUT COMPLICATIONS Qualifiers: Diabetes mellitus type: type 2 Diabetes mellitus complication status: with circulatory complication (8) NSTEMI (non-ST elevated myocardial infarction) Code(s): I21.4 - NON-ST ELEVATION (NSTEMI) MYOCARDIAL INFARCTION (9) Peripheral vascular disease Code(s): I73.9 - PERIPHERAL VASCULAR DISEASE, UNSPECIFIED Assessment/Plan IMP DYSPNEA SECONDARY TO DECOMPENSATED CHF IMPROVED ASHD S/P STENT DIASTOLIC HF R PLEURAL EFFUSION PULMONARY HTN AFIB S/P PPM PULMONARY HTN DM ACUTE ON CHRONIC KIDNEY DISEASE AAA S/P REPAIR PVD HTN ANEMIA PLAN MILRINONE D/Aniket DEMADEX O2 DAILY WTS PLAVIX MONITOR LYTES,RENAL FUNCTION NORMAL TRANSFUSION THRESHOLD MONITOR H+H DR SO Problem List - Problems (1) Acute CHF Code(s): I50.9 - HEART FAILURE, UNSPECIFIED Qualifiers: Heart failure type: unspecified Qualified Code(s): I50.9 - Heart failure, unspecified (2) Acute on chronic renal failure Code(s): N17.9 - ACUTE KIDNEY FAILURE, UNSPECIFIED; N18.9 - CHRONIC KIDNEY DISEASE, UNSPECIFIED Qualifiers: Acute renal failure type: unspecified Chronic kidney disease stage: unspecified stage Qualified Code(s): N17.9 - Acute kidney failure, unspecified ; N18.9 - Chronic kidney disease, unspecified; N18.9 - Chronic kidney disease, unspecified (3) Hypoxia Code(s): R09.02 - HYPOXEMIA (4) Atrial fibrillation Code(s): I48.91 - UNSPECIFIED ATRIAL FIBRILLATION Qualifiers: Atrial fibrillation type: paroxysmal Qualified Code(s): I48.0 - Paroxysmal atrial fibrillation (5) Congestive heart failure Code(s): I50.9 - HEART FAILURE, UNSPECIFIED Qualifiers: Qualified Code(s): I50.22 - Chronic systolic (congestive) heart failure (6) Coronary artery disease Code(s): I25.10 - ATHSCL HEART DISEASE OF [place] CORONARY ARTERY W/O ANG PCTRS Qualifiers: Coronary Disease-Associated Artery/Lesion type: [place] coronary artery [place] vs. transplanted heart: [place] heart Associated angina: without angina pectoris (7) Diabetes Code(s): E11.9 - TYPE 2 DIABETES MELLITUS WITHOUT COMPLICATIONS Qualifiers: Diabetes mellitus type: type 2 Diabetes mellitus complication status: with circulatory complication (8) NSTEMI (non-ST elevated myocardial infarction) Code(s): I21.4 - NON-ST ELEVATION (NSTEMI) MYOCARDIAL INFARCTION (9) Peripheral vascular disease Code(s): I73.9 - PERIPHERAL VASCULAR DISEASE, UNSPECIFIED
--- NOTE | 2017-12-05 12:15 | PN ---
Progress Note, Physician Chief Complaint: Mr Howard is without complaint. No cp, sob, n/v. - Current Medication List Current Medications: Active Medications Atorvastatin Calcium (Lipitor -) 40 mg PO HS [facility] Last Admin: 12/04/17 21:35 Dose: 40 mg Calcium Acetate (Phoslo -) 667 mg PO TIDCM [facility] Last Admin: 12/05/17 08:21 Dose: 667 mg Clopidogrel Bisulfate (Plavix -) 75 mg PO DAILY [facility] Last Admin: 12/05/17 09:33 Dose: 75 mg Epoetin Romeo (Epogen -) 10,000 unit IVPUSH ONCE ONE Stop: 12/06/17 06:01 Heparin Sodium (Porcine) (Heparin -) 1,000 unit IVPUSH ONCE ONE Stop: 12/06/17 06:01 Hydralazine HCl (Apresoline -) 50 mg PO TID [facility] Last Admin: 12/05/17 06:25 Dose: 50 mg Sodium Chloride (Normal Saline -) 250 mls @ 3,000 mls/hr IV PRN PRN PRN Reason: Hypotension during Dialysis Stop: 12/06/17 11:26 Iron Sucrose 100 mg/ Sodium (Chloride) 100 mls @ 200 mls/hr IVPB ONCE ONE Stop: 12/06/17 07:29 Insulin Aspart (Novolog Vial Sliding Scale -) 1 vial SQ HS [facility] PRN Reason: Protocol Last Admin: 12/04/17 21:34 Dose: 2 unit Insulin Aspart (Novolog Vial Sliding Scale -) 1 vial SQ TIDAC [facility] PRN Reason: Protocol Last Admin: 12/05/17 11:40 Dose: Not Given Insulin Detemir (Levemir Vial) 10 units SQ HS [facility] Last Admin: 12/04/17 21:35 Dose: 10 units Isosorbide Dinitrate (Isordil -) 10 mg PO TIDISORDIL [facility] Last Admin: 12/05/17 08:21 Dose: 10 mg Metoprolol Succinate (Toprol Xl -) 50 mg PO DAILY [facility] Last Admin: 12/05/17 09:33 Dose: 50 mg Sodium Bicarbonate (Sodium Bicarbonate -) 650 mg PO BID [facility] Last Admin: 12/05/17 09:33 Dose: 650 mg Tamsulosin HCl (Flomax -) 0.4 mg PO HS [facility] Last Admin: 12/04/17 21:35 Dose: 0.4 mg Torsemide (Demadex -) 80 mg PO DAILY [facility] Last Admin: 12/05/17 09:31 Dose: 80 mg - Objective Vital Signs: Vital Signs Temperature 37.2 C 12/05/17 06:00 Pulse Rate 72 12/05/17 06:00 Respiratory Rate 20 12/05/17 06:00 Blood Pressure 134/66 12/05/17 06:00 O2 Sat by Pulse Oximetry (%) 95 12/04/17 21:00 Constitutional: Yes: Well Nourished, No Distress, Calm Cardiovascular: Yes: Regular Rate and Rhythm. No: Gallop, Murmur, Rub Respiratory: Yes: Regular, CTA Bilaterally, On Nasal O2. No: Rales, Rhonchi, Wheezes Gastrointestinal: Yes: Normal Bowel Sounds, Soft. No: Distention, Tenderness Extremities: Yes: WNL Edema: No Labs: CBC, BMP 12/05/17 06:30 12/05/17 06:30 INR, PTT INR 0.99 (0.82-1.09) 11/16/17 16:00 Problem List - Problems (1) Acute CHF Code(s): I50.9 - HEART FAILURE, UNSPECIFIED Qualifiers: Heart failure type: combined systolic and diastolic Qualified Code(s): I50.41 - Acute combined systolic (congestive) and diastolic (congestive) heart failure (2) Acute on chronic renal failure Code(s): N17.9 - ACUTE KIDNEY FAILURE, UNSPECIFIED; N18.9 - CHRONIC KIDNEY DISEASE, UNSPECIFIED Qualifiers: Acute renal failure type: unspecified Chronic kidney disease stage: unspecified stage Qualified Code(s): N17.9 - Acute kidney failure, unspecified ; N18.9 - Chronic kidney disease, unspecified; N18.9 - Chronic kidney disease, unspecified (3) Hypoxia Code(s): R09.02 - HYPOXEMIA (4) Atrial fibrillation Code(s): I48.91 - UNSPECIFIED ATRIAL FIBRILLATION Qualifiers: Atrial fibrillation type: paroxysmal Qualified Code(s): I48.0 - Paroxysmal atrial fibrillation (5) Diabetes Code(s): E11.9 - TYPE 2 DIABETES MELLITUS WITHOUT COMPLICATIONS Qualifiers: Diabetes mellitus type: type 2 Diabetes mellitus complication status: with circulatory complication (6) Hypertension Code(s): I10 - ESSENTIAL (PRIMARY) HYPERTENSION Qualifiers: Hypertension type: essential hypertension Qualified Code(s): I10 - Essential (primary) hypertension Assessment/Plan (1) Acute CHF Assessment/Plan: -appreciate cardiology and nephrology assistance -on HD now Code(s): I50.9 - HEART FAILURE, UNSPECIFIED Qualifiers: Heart failure type: combined systolic/diastolic Qualified Code(s): - Acute combined systolic/diastolic dysfunction (2) Acute on chronic renal failure Assessment/Plan: -currently on HD -permacath placement on -will need longterm HD Code(s): N17.9 - ACUTE KIDNEY FAILURE, UNSPECIFIED; N18.9 - CHRONIC KIDNEY DISEASE, UNSPECIFIED Qualifiers: Acute renal failure type: unspecified Chronic kidney disease stage: unspecified stage Qualified Code(s): N17.9 - Acute kidney failure, unspecified ; N18.9 - Chronic kidney disease, unspecified; N18.9 - Chronic kidney disease, unspecified (3) Hypoxia Assessment/Plan: -resolved Code(s): R09.02 - HYPOXEMIA (4) Atrial fibrillation Assessment/Plan: -rate controlled -cardiology following -continue plavix, not on AC Code(s): I48.91 - UNSPECIFIED ATRIAL FIBRILLATION Qualifiers: Atrial fibrillation type: paroxysmal Qualified Code(s): I48.0 - Paroxysmal atrial fibrillation (5) Diabetes Assessment/Plan: -continue current regimen Code(s): E11.9 - TYPE 2 DIABETES MELLITUS WITHOUT COMPLICATIONS Qualifiers: Diabetes mellitus type: type 2 Diabetes mellitus complication status: with circulatory complication (6) Hypertension Assessment/Plan: -on toprol xl, hydralazine, isordil, and torsemide -controlled Code(s): I10 - ESSENTIAL (PRIMARY) HYPERTENSION Qualifiers: Hypertension type: essential hypertension Qualified Code(s): I10 - Essential (primary) hypertension (7) UTI -finished full course zosyn
--- NOTE | 2017-12-05 13:26 | PN ---
Progress Note (short form) - Note Progress Note: Chief Complaint: chf History of Present Illness: milrinone stopped. s/p hd yesterday. denies sob, cp, palpitations, leg swelling ex cigs Current Medications Atorvastatin Calcium (Lipitor -) 40 mg PO HS [facility] Last Admin: 12/04/17 21:35 Dose: 40 mg Calcium Acetate (Phoslo -) 667 mg PO TIDCM [facility] Last Admin: 12/05/17 12:54 Dose: 667 mg Clopidogrel Bisulfate (Plavix -) 75 mg PO DAILY [facility] Last Admin: 12/05/17 09:33 Dose: 75 mg Epoetin Romeo (Epogen -) 10,000 unit IVPUSH ONCE ONE Stop: 12/06/17 06:01 Heparin Sodium (Porcine) (Heparin -) 1,000 unit IVPUSH ONCE ONE Stop: 12/06/17 06:01 Hydralazine HCl (Apresoline -) 50 mg PO TID [facility] Last Admin: 12/05/17 06:25 Dose: 50 mg Sodium Chloride (Normal Saline -) 250 mls @ 3,000 mls/hr IV PRN PRN PRN Reason: Hypotension during Dialysis Stop: 12/06/17 11:26 Iron Sucrose 100 mg/ Sodium (Chloride) 100 mls @ 200 mls/hr IVPB ONCE ONE Stop: 12/06/17 07:29 Insulin Aspart (Novolog Vial Sliding Scale -) 1 vial SQ [facility] PRN Reason: Protocol Last Admin: 12/04/17 21:34 Dose: 2 unit Insulin Aspart (Novolog Vial Sliding Scale -) 1 vial SQ TIDAC [facility] PRN Reason: Protocol Last Admin: 12/05/17 11:40 Dose: Not Given Insulin Detemir (Levemir Vial) 10 units SQ [facility] Last Admin: 12/04/17 21:35 Dose: 10 units Isosorbide Dinitrate (Isordil -) 10 mg PO TIDISORDIL [facility] Last Admin: 12/05/17 12:54 Dose: 10 mg Metoprolol Succinate (Toprol Xl -) 50 mg PO DAILY [facility] Last Admin: 12/05/17 09:33 Dose: 50 mg Sodium Bicarbonate (Sodium Bicarbonate -) 650 mg PO BID [facility] Last Admin: 12/05/17 09:33 Dose: 650 mg Tamsulosin HCl (Flomax -) 0.4 mg PO [facility] Last Admin: 12/04/17 21:35 Dose: 0.4 mg Torsemide (Demadex -) 80 mg PO DAILY [facility] Last Admin: 12/05/17 09:31 Dose: 80 mg - Objective Vital Signs: Vital Signs - 24 hr 12/04/17 12/04/17 12/04/17 13:40 14:00 14:10 Temperature 98.6 F Pulse Rate 69 69 70 Respiratory 18 20 18 Rate Blood Pressure 122/61 122/61 131/62 O2 Sat by Pulse Oximetry (%) 12/04/17 12/04/17 12/04/17 14:40 15:10 18:00 Temperature 98.0 F Pulse Rate 71 69 73 Respiratory 18 18 20 Rate Blood Pressure 132/61 129/63 129/47 O2 Sat by Pulse Oximetry (%) 12/04/17 12/04/17 12/05/17 20:05 21:00 03:07 Temperature 99.2 F 98.7 F Pulse Rate 69 70 Respiratory 20 20 Rate Blood Pressure 122/53 138/69 O2 Sat by Pulse 95 Oximetry (%) 12/05/17 12/05/17 12/05/17 06:00 09:00 10:00 Temperature 98.9 F 98 F Pulse Rate 72 70 Respiratory 20 20 Rate Blood Pressure 134/66 132/62 O2 Sat by Pulse 97 Oximetry (%) Intake & Output 12/03/17 12/04/17 12/05/17 12/06/17 07:59 07:59 07:59 07:59 Intake Total 468.2 360 Output Total 500 200 Balance -31.8 160 Weight 160 lb 6.4 oz 158 lb 6.4 oz 156 lb 8 oz Constitutional: Yes: No Distress, Calm Eyes: No: Sclera Icterus HENT: No: Nasal Congestion Cardiovascular: Yes: Regular Rate and Rhythm, JVD, S1, S2, Other (PMI non diplaced). No: Gallop, Murmur Respiratory: Yes: CTA Bilaterally. No: Accessory Muscle Use, Rales, Wheezes Gastrointestinal: Yes: Normal Bowel Sounds, Soft. No: Tenderness Musculoskeletal: Yes: Other (No kyphosis) Extremities: No: Cold, Cyanosis Edema: No Integumentary: No: Jaundice Neurological: Yes: Alert, Oriented (x3) Psychiatric: No: Agitated Labs: CBC, BMP 12/05/17 06:30 04/17/18 06:30 Laboratory Tests 12/05/17 06:30 Magnesium 2.2 Assessment/Plan echo 10/2017: moderate concentric lvh. 1+ lve. mod-sev decreased LV sys fn, global. nl RV size. mod decreased RV sys fn. mod mitra. mod-sev mac. mod mr. mod-sev tr. rvsp > 60. trivial effusion. echo 11/2016: low nl lvef, mild lvh, nl rv, mitra, mod mr/tr, mod phtn renal u/s: chronic medical renal disease. trace free fluid in upper abdomen. bilateral pleural effusions. see emr for detailed findings. mibi 11/2016: no ischemia CT chest images reviewed with pulm: large R, small-moderate L pleural effusions , fluid in fissure areas of atx vs congestion vs infiltrate tele: V-paced a/p: 67 m hx cad s/p nstemi/pci (11/2014 pt had chf with +trops so sent for cath [facility] and had rota and GIOVANNI to pLAD, residual dLCx and ramus 50-60% both), dchf, htn, hld, dm, ckd, afib on coumadin, cva, ppm (biotronik 05/2012), remote AAA repair, pad s/p left fem stent 2015 and left toe amp here with sob. acute systolic chf: - echo here shows new systolic cardiomyopathy. will need to consider stress vs. cath once euvolemic (inpatient vs. outpatient) pending course of KELLI/CKD-- this decision is better left to pt's longstanding treating pmo analyst (dr liriano), and not until HF is optimized better. - ? etiology: r/o multivessel CAD as above. no tachyarrhythmia burden here. ? RV apical pacing cardiomyopathy--would have low threshold to consider DISPATCH MANAGER upgrade. defer to dr liriano (outpt cardio) once HF is better optimized. -has been receiving doses of lasix 80 iv qd to bid here, with progressively worsening renal fxn, no improvement in radiographic findings. wt currently unchanged vs initial wt here (162). ? dry wt. office dry wt 09/07 visit 154 lbs -ineffective diuresis here despite milrinone, lasix with metolazone. -now started HD for ESRD with refractory fluid overload, per renal team recs -po torsemide per renal, fluid mgmt/UF per renal -12/04: wt declining. no sob, remains with marked JVD. rpt cxr -has been on milrinone for many days now. he was never hypotensive or with severe low-output sx's. given potential for milrinone toxic levels to accumulate in ESRD, will stop milrinone and observe volume status response to HD /UF -continue metoprolol. cont hydral, nitrates - 12/05: milrinone now off. will uptitrate nitrates and hydral. con't hd per renal. kelli on ckd: -as above VTach: -K and Mg optimization (usual aggressive targets) -observe tele on milrinone -cont BB as doing cad/pci: -stable, no cp/angina/acs -preserved lvef echo 2017 and no ischemia on 2017 mibi, but with known cad/ residual disease now with new cardiomypathy. ischemic eval as mentioned above. -cont home bb, statin, plavix htn: -cont bb, hydral hld: -cont statin afib,aflutter,atach: -rate controlled as pt has complete heart block with ppm -has hx of cva and was on AC and dapt previously before a prior GIB, and aortoenteric fistula. was followed by vascular at [facility], now by Dr. Gan. DAPT was deemed safe to resume in 2015 after LE stent. For now, cont plavix monotherapy. defer to outpatient cardiology ppm (biotronik for CHB): -Normal fcn on recent office check, next routine check planned 11/2017 remote aaa repair/pad s/p multiple interventions and toe amputations : -stable, continue bp control. plavix, statin anemia: -hgb slowly drifting down, prbcs per pmd
--- NOTE | 2017-12-05 15:11 | PN ---
Progress Note, Physician History of Present Illness: no new issues patient stable - Current Medication List Current Medications: Active Medications Atorvastatin Calcium (Lipitor -) 40 mg PO HS [facility] Last Admin: 12/04/17 21:35 Dose: 40 mg Calcium Acetate (Phoslo -) 667 mg PO TIDCM [facility] Last Admin: 12/05/17 12:54 Dose: 667 mg Clopidogrel Bisulfate (Plavix -) 75 mg PO DAILY [facility] Last Admin: 12/05/17 09:33 Dose: 75 mg Epoetin Romeo (Epogen -) 10,000 unit IVPUSH ONCE ONE Stop: 12/06/17 06:01 Heparin Sodium (Porcine) (Heparin -) 1,000 unit IVPUSH ONCE ONE Stop: 12/06/17 06:01 Hydralazine HCl (Apresoline -) 50 mg PO TID [facility] Last Admin: 12/05/17 13:42 Dose: 50 mg Sodium Chloride (Normal Saline -) 250 mls @ 3,000 mls/hr IV PRN PRN PRN Reason: Hypotension during Dialysis Stop: 12/06/17 11:26 Iron Sucrose 100 mg/ Sodium (Chloride) 100 mls @ 200 mls/hr IVPB ONCE ONE Stop: 12/06/17 07:29 Insulin Aspart (Novolog Vial Sliding Scale -) 1 vial SQ HS [facility] PRN Reason: Protocol Last Admin: 12/04/17 21:34 Dose: 2 unit Insulin Aspart (Novolog Vial Sliding Scale -) 1 vial SQ TIDAC [facility] PRN Reason: Protocol Last Admin: 12/05/17 11:40 Dose: Not Given Insulin Detemir (Levemir Vial) 10 units SQ [facility] Last Admin: 12/04/17 21:35 Dose: 10 units Isosorbide Dinitrate (Isordil -) 10 mg PO TIDISORDIL [facility] Last Admin: 12/05/17 12:54 Dose: 10 mg Metoprolol Succinate (Toprol Xl -) 50 mg PO DAILY [facility] Last Admin: 12/05/17 09:33 Dose: 50 mg Sodium Bicarbonate (Sodium Bicarbonate -) 650 mg PO BID [facility] Last Admin: 12/05/17 09:33 Dose: 650 mg Tamsulosin HCl (Flomax -) 0.4 mg PO HS [facility] Last Admin: 12/04/17 21:35 Dose: 0.4 mg Torsemide (Demadex -) 80 mg PO DAILY [facility] Last Admin: 12/05/17 09:31 Dose: 80 mg - Objective Vital Signs: Vital Signs Temperature 98.8 F 12/05/17 14:15 Pulse Rate 85 12/05/17 14:15 Respiratory Rate 20 12/05/17 14:15 Blood Pressure 122/57 12/05/17 14:15 O2 Sat by Pulse Oximetry (%) 97 12/05/17 09:00 Constitutional: Yes: No Distress, Calm Cardiovascular: Yes: S1, S2 Respiratory: Yes: Regular, CTA Bilaterally Gastrointestinal: Yes: Normal Bowel Sounds, Soft Musculoskeletal: Yes: WNL Extremities: Yes: WNL Neurological: Yes: Alert, Oriented Psychiatric: Yes: Alert, Oriented Labs: CBC, BMP 12/05/17 06:30 12/05/17 06:30 INR, PTT INR 0.99 (0.82-1.09) 11/16/17 16:00 Assessment/Plan Problem List - Problems (1) Acute CHF Code(s): I50.9 - HEART FAILURE, UNSPECIFIED Qualifiers: Heart failure type: diastolic Qualified Code(s): I50.31 - Acute diastolic ( congestive) heart failure (2) Acute on chronic renal failure Code(s): N17.9 - ACUTE KIDNEY FAILURE, UNSPECIFIED; N18.9 - CHRONIC KIDNEY DISEASE, UNSPECIFIED Qualifiers: Acute renal failure type: unspecified Chronic kidney disease stage: unspecified stage Qualified Code(s): N17.9 - Acute kidney failure, unspecified ; N18.9 - Chronic kidney disease, unspecified; N18.9 - Chronic kidney disease, unspecified (3) Hypoxia Code(s): R09.02 - HYPOXEMIA (4) Atrial fibrillation Code(s): I48.91 - UNSPECIFIED ATRIAL FIBRILLATION Qualifiers: Atrial fibrillation type: paroxysmal Qualified Code(s): I48.0 - Paroxysmal atrial fibrillation (5) Diabetes Code(s): E11.9 - TYPE 2 DIABETES MELLITUS WITHOUT COMPLICATIONS Qualifiers: Diabetes mellitus type: type 2 Diabetes mellitus complication status: with circulatory complication (6) Hypertension Code(s): I10 - ESSENTIAL (PRIMARY) HYPERTENSION Qualifiers: Hypertension type: essential hypertension Qualified Code(s): I10 - Essential (primary) hypertension (7) UTI complicated plan off of abx rest continue current mgmt cardio on case rest continue as per primary team final plan to be made patient being planned for dialysis probably
[2017-12-05] MEDS: TAMSULOSIN HCL 0.4 MG CAP.ER.24H (FP) PO SCH (21:45)
[2017-12-05] MEDS: ATORVASTATIN CA 40 MG TABLET (FP) PO SCH (21:45)
[2017-12-05] MEDS: INSULIN (LEVEMIR) 100 UNITS/ML UNITS SQ SCH (21:47)
[2017-12-06] MEDS: INSULIN SLIDING SCALE (NOVOLOG) 1 VIAL SQ SCH ×4 (06:00→21:43)
[2017-12-06] MEDS: hydrALAZINE HCL 50 MG TABLET (FP) PO SCH ×3 (06:06→21:40)
[2017-12-06] MEDS ORDERED: INSULIN (LEVEMIR) 100 UNITS/ML UNITS SQ ONE (06:20)
[2017-12-06 07:10] LABS: BASO % 0.9 % (0-2.0); EOS % 1.1 % (0-4.5); HEMATOCRIT 26.1 % (35.4-49); HEMOGLOBIN 8.6 GM/dL (11.7-16.9); LYMPH % 8.4 % (8-40); MCH 30.1 pg (25.7-33.7); MCHC 32.8 g/dl (32.0-35.9); MEAN CELL VOLUME 91.8 fl (80-96); MEAN PLT VOLUME 8.9 fl (7.5-11.1); MONO % 9.6 % (3.8-10.2); PLATELET COUNT 133 K/MM3 (134-434); RBC 2.84 M/mm3 (4.00-5.60); RDW 19.5 % (11.9-15.9); WHITE BLOOD COUNT 6.3 K/mm3 (4.0-10.0)
[2017-12-06] MEDS: CALCIUM ACETATE 667 MG CAPSULE (FP) PO SCH ×3 (08:30→17:25)
[2017-12-06] MEDS: TORSEMIDE 20 MG TABLET (FP) PO SCH (10:17)
[2017-12-06] MEDS: CLOPIDOGREL BISULFATE 75 MG TABLET (FP) PO SCH (10:18)
[2017-12-06] MEDS: SODIUM BICARBONATE 650 MG TABLET PO SCH ×2 (10:18→21:40)
--- NOTE | 2017-12-06 11:17 | PN ---
Progress Note, Physician History of Present Illness: PULMONARY ALERT,NAD,AMBULATING,-RESP DISTRESS - Current Medication List Current Medications: Active Medications Atorvastatin Calcium (Lipitor -) 40 mg PO HS [facility] Last Admin: 12/05/17 21:45 Dose: 40 mg Calcium Acetate (Phoslo -) 667 mg PO TIDCM [facility] Last Admin: 12/06/17 08:30 Dose: 667 mg Clopidogrel Bisulfate (Plavix -) 75 mg PO DAILY [facility] Last Admin: 12/06/17 10:18 Dose: 75 mg Epoetin Romeo (Epogen -) 10,000 unit IVPUSH ONCE ONE Stop: 12/06/17 06:01 Heparin Sodium (Porcine) (Heparin -) 1,000 unit IVPUSH ONCE ONE Stop: 12/06/17 06:01 Hydralazine HCl (Apresoline -) 50 mg PO TID [facility] Last Admin: 12/06/17 06:06 Dose: 50 mg Sodium Chloride (Normal Saline -) 250 mls @ 3,000 mls/hr IV PRN PRN PRN Reason: Hypotension during Dialysis Stop: 12/06/17 11:26 Iron Sucrose 100 mg/ Sodium (Chloride) 100 mls @ 200 mls/hr IVPB ONCE ONE Stop: 12/06/17 07:29 Insulin Aspart (Novolog Vial Sliding Scale -) 1 vial SQ [facility] PRN Reason: Protocol Last Admin: 12/05/17 21:46 Dose: 3 unit Insulin Aspart (Novolog Vial Sliding Scale -) 1 vial SQ TIDAC [facility] PRN Reason: Protocol Last Admin: 12/06/17 06:00 Dose: Not Given Insulin Detemir (Levemir Vial) 10 units SQ [facility] Last Admin: 12/05/17 21:47 Dose: 10 units Isosorbide Dinitrate (Isordil -) 20 mg PO TIDISORDIL [facility] Metoprolol Succinate (Toprol Xl -) 50 mg PO DAILY [facility] Last Admin: 12/06/17 10:18 Dose: 50 mg Sodium Bicarbonate (Sodium Bicarbonate -) 650 mg PO BID [facility] Last Admin: 12/06/17 10:18 Dose: 650 mg Tamsulosin HCl (Flomax -) 0.4 mg PO [facility] Last Admin: 12/05/17 21:45 Dose: 0.4 mg Torsemide (Demadex -) 80 mg PO DAILY [facility] Last Admin: 12/06/17 10:17 Dose: 80 mg - Objective Vital Signs: Vital Signs Temperature 99.1 F 12/06/17 09:27 Pulse Rate 70 12/06/17 09:27 Respiratory Rate 18 12/06/17 09:27 Blood Pressure 170/74 12/06/17 09:27 O2 Sat by Pulse Oximetry (%) 93 L 12/06/17 09:00 Constitutional: Yes: Well Nourished, Calm Eyes: Yes: WNL HENT: Yes: WNL Neck: Yes: WNL Cardiovascular: Yes: Regular Rate and Rhythm, S1, S2 Respiratory: Yes: Diminished Gastrointestinal: Yes: Normal Bowel Sounds, Soft Extremities: Yes: WNL Edema: No Labs: CBC, BMP 12/06/17 06:16 12/05/17 06:30 INR, PTT INR 0.99 (0.82-1.09) 11/16/17 16:00 Problem List - Problems (1) Acute CHF Code(s): I50.9 - HEART FAILURE, UNSPECIFIED Qualifiers: Heart failure type: combined systolic and diastolic Qualified Code(s): I50.41 - Acute combined systolic (congestive) and diastolic (congestive) heart failure (2) Acute on chronic renal failure Code(s): N17.9 - ACUTE KIDNEY FAILURE, UNSPECIFIED; N18.9 - CHRONIC KIDNEY DISEASE, UNSPECIFIED Qualifiers: Acute renal failure type: unspecified Chronic kidney disease stage: unspecified stage Qualified Code(s): N17.9 - Acute kidney failure, unspecified ; N18.9 - Chronic kidney disease, unspecified; N18.9 - Chronic kidney disease, unspecified (3) Hypoxia Code(s): R09.02 - HYPOXEMIA (4) Atrial fibrillation Code(s): I48.91 - UNSPECIFIED ATRIAL FIBRILLATION Qualifiers: Atrial fibrillation type: paroxysmal Qualified Code(s): I48.0 - Paroxysmal atrial fibrillation (5) Congestive heart failure Code(s): I50.9 - HEART FAILURE, UNSPECIFIED Qualifiers: Qualified Code(s): I50.22 - Chronic systolic (congestive) heart failure (6) Coronary artery disease Code(s): I25.10 - ATHSCL HEART DISEASE OF [place] CORONARY ARTERY W/O ANG PCTRS Qualifiers: Coronary Disease-Associated Artery/Lesion type: [place] coronary artery [place] vs. transplanted heart: [place] heart Associated angina: without angina pectoris (7) Diabetes Code(s): E11.9 - TYPE 2 DIABETES MELLITUS WITHOUT COMPLICATIONS Qualifiers: Diabetes mellitus type: type 2 Diabetes mellitus complication status: with circulatory complication (8) NSTEMI (non-ST elevated myocardial infarction) Code(s): I21.4 - NON-ST ELEVATION (NSTEMI) MYOCARDIAL INFARCTION (9) Peripheral vascular disease Code(s): I73.9 - PERIPHERAL VASCULAR DISEASE, UNSPECIFIED Assessment/Plan IMP DYSPNEA SECONDARY TO DECOMPENSATED CHF IMPROVED ASHD S/P STENT DIASTOLIC HF R PLEURAL EFFUSION PULMONARY HTN AFIB S/P PPM PULMONARY HTN DM ACUTE ON CHRONIC KIDNEY DISEASE AAA S/P REPAIR PVD HTN ANEMIA PLAN MILRINONE D/Aniket DEMADEX HD PER RENAL O2 DAILY WTS PLAVIX MONITOR LYTES,RENAL FUNCTION NORMAL TRANSFUSION THRESHOLD MONITOR H+H PT DR SO Problem List - Problems (1) Acute CHF Code(s): I50.9 - HEART FAILURE, UNSPECIFIED Qualifiers: Heart failure type: unspecified Qualified Code(s): I50.9 - Heart failure, unspecified (2) Acute on chronic renal failure Code(s): N17.9 - ACUTE KIDNEY FAILURE, UNSPECIFIED; N18.9 - CHRONIC KIDNEY DISEASE, UNSPECIFIED Qualifiers: Acute renal failure type: unspecified Chronic kidney disease stage: unspecified stage Qualified Code(s): N17.9 - Acute kidney failure, unspecified ; N18.9 - Chronic kidney disease, unspecified; N18.9 - Chronic kidney disease, unspecified (3) Hypoxia Code(s): R09.02 - HYPOXEMIA (4) Atrial fibrillation Code(s): I48.91 - UNSPECIFIED ATRIAL FIBRILLATION Qualifiers: Atrial fibrillation type: paroxysmal Qualified Code(s): I48.0 - Paroxysmal atrial fibrillation (5) Congestive heart failure Code(s): I50.9 - HEART FAILURE, UNSPECIFIED Qualifiers: Qualified Code(s): I50.22 - Chronic systolic (congestive) heart failure (6) Coronary artery disease Code(s): I25.10 - ATHSCL HEART DISEASE OF [place] CORONARY ARTERY W/O ANG PCTRS Qualifiers: Coronary Disease-Associated Artery/Lesion type: [place] coronary artery [place] vs. transplanted heart: [place] heart Associated angina: without angina pectoris (7) Diabetes Code(s): E11.9 - TYPE 2 DIABETES MELLITUS WITHOUT COMPLICATIONS Qualifiers: Diabetes mellitus type: type 2 Diabetes mellitus complication status: with circulatory complication (8) NSTEMI (non-ST elevated myocardial infarction) Code(s): I21.4 - NON-ST ELEVATION (NSTEMI) MYOCARDIAL INFARCTION (9) Peripheral vascular disease Code(s): I73.9 - PERIPHERAL VASCULAR DISEASE, UNSPECIFIED
--- NOTE | 2017-12-06 12:00 | PN ---
Progress Note (short form) - Note Progress Note: Chief Complaint: sob History of Present Illness: no cp, palpitations, syncope sob ex cigs Current Medications: Current Medications Generic Name Dose Route Start Last Admin Trade Name Connie PRN Reason Stop Dose Admin Atorvastatin Calcium 40 mg 11/17/17 22:00 12/05/17 21:45 Lipitor - PO 40 mg HS [facility] Administration Calcium Acetate 667 mg 11/29/17 17:30 12/06/17 08:30 Phoslo - PO 667 mg TIDCM [facility] Administration Clopidogrel Bisulfate 75 mg 11/17/17 10:00 12/06/17 10:18 Plavix - PO 75 mg DAILY [facility] Administration Epoetin Romeo 10,000 unit 12/06/17 06:00 Epogen - IVPUSH 12/06/17 06:01 ONCE ONE Heparin Sodium (Porcine) 1,000 unit 12/06/17 06:00 Heparin - IVPUSH 12/06/17 06:01 ONCE ONE Hydralazine HCl 50 mg 11/28/17 14:00 12/06/17 06:06 Apresoline - PO 50 mg TID [facility] Administration Sodium Chloride 250 mls @ 3,000 mls/hr 12/05/17 11:26 Normal Saline - IV 12/06/17 11:26 PRN PRN Hypotension during Dialysis Iron Sucrose 100 mg/ Sodium 100 mls @ 200 mls/hr 12/06/17 07:00 Chloride IVPB 12/06/17 07:29 ONCE ONE Insulin Aspart 1 vial 11/16/17 22:00 12/05/17 21:46 Novolog Vial Sliding Scale - SQ 3 unit HS [facility] Administration Protocol Insulin Aspart 1 vial 11/17/17 07:00 12/06/17 11:14 Novolog Vial Sliding Scale - SQ Not Given TIDAC [facility] Protocol Insulin Detemir 10 units 11/26/17 22:00 12/05/17 21:47 Levemir Vial SQ 10 units HS [facility] Administration Isosorbide Dinitrate 20 mg 12/06/17 08:38 Isordil - PO TIDISORDIL [facility] Metoprolol Succinate 50 mg 11/17/17 10:00 12/06/17 10:18 Toprol Xl - PO 50 mg DAILY [facility] Administration Sodium Bicarbonate 650 mg 11/17/17 22:00 12/06/17 10:18 Sodium Bicarbonate - PO 650 mg BID [facility] Administration Tamsulosin HCl 0.4 mg 11/16/17 22:00 12/05/17 21:45 Flomax - PO 0.4 mg HS [facility] Administration Torsemide 80 mg 12/03/17 10:00 12/06/17 10:17 Demadex - PO 80 mg DAILY [facility] Administration - Objective Vital Signs: Vital Signs Period Temp Pulse Resp BP Sys/Lauren Pulse Ox Last 24 Hr 97.2 F-99.1 F 69-85 18-20 122-170/52-84 93-96 Constitutional: Yes: No Distress, Calm Eyes: No: Sclera Icterus HENT: No: Nasal Congestion Cardiovascular: Yes: Regular Rate and Rhythm, JVD elevated, S1, S2,. No: Gallop , Murmur Respiratory: Yes: diminshed bases No: Accessory Muscle Use, Rales, Wheezes Gastrointestinal: Yes: Normal Bowel Sounds, Soft. No: Tenderness Extremities: No: Cold Edema: no le edema bl Integumentary: No: Jaundice Neurological: Yes: Alert, Oriented (x3) Psychiatric: No: Agitated Labs: CBC, BMP 12/06/17 06:16 12/05/17 06:30 ecg vpaced, underlying appears aflutter echo 10/2017: moderate concentric lvh. 1+ lve. mod-sev decreased LV sys fn, global. nl RV size. mod decreased RV sys fn. mod mitra. mod-sev mac. mod mr. mod-sev tr. rvsp > 60. trivial effusion. echo 11/2016: low nl lvef, mild lvh, nl rv, mitra, mod mr/tr, mod phtn echo 02/2015: mild lv dil, nl lvef, basal post-lat HK, nl rv size/fcn, severe biatrial dil, sev mr, sev tr, sev phtn, mod pr echo 11/2014: nl lv/rv, mod-sev mr, sev tr, sev phtn renal u/s: chronic medical renal disease. trace free fluid in upper abdomen. bilateral pleural effusions. see emr for detailed findings. mibi 11/2016: no ischemia tele: v-paced, brief nsvt CXR: worse chf a/p: 67 m hx cad s/p nstemi/pci (11/2014 pt had chf with +trops so sent for cath [facility] and had rota and GIOVANNI to pLAD, residual dLCx and ramus 50-60% both), dchf, htn, hld, dm, ckd, afib on coumadin, cva, ppm (biotronik 05/2012), remote AAA repair, pad s/p left fem stent 2015 and left toe amp here with sob. acute systolic chf: - echo here shows new systolic cardiomyopathy. will need to consider stress vs. cath once euvolemic (inpatient vs. outpatient) pending course of KELLI/CKD-- this decision is better left to pt's longstanding treating vp ad products and planning (dr liriano), and not until HF is optimized better. - ? etiology: r/o multivessel CAD as above. no tachyarrhythmia burden here. ? RV apical pacing cardiomyopathy--would have low threshold to consider TELESALES MANAGER upgrade. defer to dr liriano (outpt cardio) once HF is better optimized. -has been receiving doses of lasix 80 iv qd to bid here, with progressively worsening renal fxn, no improvement in radiographic findings. wt currently unchanged vs initial wt here (162). ? dry wt. office dry wt 09/07 visit 154 lbs -ineffective diuresis here despite milrinone, lasix with metolazone. -now started HD for ESRD with refractory fluid overload, per renal team recs -po torsemide per renal, fluid mgmt/UF per renal -12/04: wt declining. no sob, remains with marked JVD. rpt cxr -has been on milrinone for many days now. he was never hypotensive or with severe low-output sx's. given potential for milrinone toxic levels to accumulate in ESRD, will stop milrinone and observe volume status response to HD /UF -continue metoprolol. cont hydral, nitrates - 12/05-: milrinone now off. sob improving with HD. con't hd for vol removal per renal. kelli on ckd: -as above VTach: -K and Mg optimization (usual aggressive targets) -observe tele on milrinone -cont BB as doing cad/pci: -stable, no cp/angina/acs -preserved lvef echo 2016 and no ischemia on 2017 mibi, but with known cad/ residual disease now with new cardiomypathy. ischemic eval as mentioned above. -cont home bb, statin, plavix htn: -cont bb, hydral hld: -cont statin afib,aflutter,atach: -rate controlled as pt has complete heart block with ppm -has hx of cva and was on AC and dapt previously before a prior GIB, and aortoenteric fistula. was followed by vascular at [facility], now by Dr. Gan. DAPT was deemed safe to resume in 2016 after LE stent. For now, cont plavix monotherapy. defer to outpatient cardiology ppm (biotronik for CHB): -Normal fcn on recent office check, next routine check planned 11/2017 remote aaa repair/pad s/p multiple interventions and toe amputations : -stable, continue bp control. plavix, statin anemia: -hgb slowly drifting down, prbcs per pmd
--- NOTE | 2017-12-06 12:02 | PN ---
Progress Note, Physician Chief Complaint: Mr Howard is without complaint. No cp, sob, n/v. - Current Medication List Current Medications: Active Medications Atorvastatin Calcium (Lipitor -) 40 mg PO HS [facility] Last Admin: 12/05/17 21:45 Dose: 40 mg Calcium Acetate (Phoslo -) 667 mg PO TIDCM [facility] Last Admin: 12/06/17 08:30 Dose: 667 mg Clopidogrel Bisulfate (Plavix -) 75 mg PO DAILY [facility] Last Admin: 12/06/17 10:18 Dose: 75 mg Epoetin Romeo (Epogen -) 10,000 unit IVPUSH ONCE ONE Stop: 12/06/17 06:01 Heparin Sodium (Porcine) (Heparin -) 1,000 unit IVPUSH ONCE ONE Stop: 12/06/17 06:01 Hydralazine HCl (Apresoline -) 50 mg PO TID [facility] Last Admin: 12/06/17 06:06 Dose: 50 mg Sodium Chloride (Normal Saline -) 250 mls @ 3,000 mls/hr IV PRN PRN PRN Reason: Hypotension during Dialysis Stop: 12/06/17 11:26 Iron Sucrose 100 mg/ Sodium (Chloride) 100 mls @ 200 mls/hr IVPB ONCE ONE Stop: 12/06/17 07:29 Insulin Aspart (Novolog Vial Sliding Scale -) 1 vial SQ HS [facility] PRN Reason: Protocol Last Admin: 12/05/17 21:46 Dose: 3 unit Insulin Aspart (Novolog Vial Sliding Scale -) 1 vial SQ TIDAC [facility] PRN Reason: Protocol Last Admin: 12/06/17 11:14 Dose: Not Given Insulin Detemir (Levemir Vial) 10 units SQ [facility] Last Admin: 12/05/17 21:47 Dose: 10 units Isosorbide Dinitrate (Isordil -) 20 mg PO TIDISORDIL [facility] Metoprolol Succinate (Toprol Xl -) 50 mg PO DAILY [facility] Last Admin: 12/06/17 10:18 Dose: 50 mg Sodium Bicarbonate (Sodium Bicarbonate -) 650 mg PO BID [facility] Last Admin: 12/06/17 10:18 Dose: 650 mg Tamsulosin HCl (Flomax -) 0.4 mg PO HS [facility] Last Admin: 12/05/17 21:45 Dose: 0.4 mg Torsemide (Demadex -) 80 mg PO DAILY [facility] Last Admin: 12/06/17 10:17 Dose: 80 mg - Objective Vital Signs: Vital Signs Temperature 37.3 C 12/06/17 09:27 Pulse Rate 70 12/06/17 09:27 Respiratory Rate 18 12/06/17 09:27 Blood Pressure 170/74 12/06/17 09:27 O2 Sat by Pulse Oximetry (%) 93 L 12/06/17 09:00 Constitutional: Yes: Well Nourished, No Distress, Calm Cardiovascular: Yes: Regular Rate and Rhythm. No: Gallop, Murmur, Rub Respiratory: Yes: Regular, CTA Bilaterally. No: Rales, Rhonchi, Wheezes Gastrointestinal: Yes: Normal Bowel Sounds, Soft. No: Distention, Tenderness Extremities: Yes: WNL Edema: No Labs: CBC, BMP 12/06/17 06:16 12/05/17 06:30 INR, PTT INR 0.99 (0.82-1.09) 11/16/17 16:00 Problem List - Problems (1) Acute CHF Code(s): I50.9 - HEART FAILURE, UNSPECIFIED Qualifiers: Heart failure type: combined systolic and diastolic Qualified Code(s): I50.41 - Acute combined systolic (congestive) and diastolic (congestive) heart failure (2) Acute on chronic renal failure Code(s): N17.9 - ACUTE KIDNEY FAILURE, UNSPECIFIED; N18.9 - CHRONIC KIDNEY DISEASE, UNSPECIFIED Qualifiers: Acute renal failure type: unspecified Chronic kidney disease stage: unspecified stage Qualified Code(s): N17.9 - Acute kidney failure, unspecified ; N18.9 - Chronic kidney disease, unspecified; N18.9 - Chronic kidney disease, unspecified (3) Hypoxia Code(s): R09.02 - HYPOXEMIA (4) Atrial fibrillation Code(s): I48.91 - UNSPECIFIED ATRIAL FIBRILLATION Qualifiers: Atrial fibrillation type: paroxysmal Qualified Code(s): I48.0 - Paroxysmal atrial fibrillation (5) Diabetes Code(s): E11.9 - TYPE 2 DIABETES MELLITUS WITHOUT COMPLICATIONS Qualifiers: Diabetes mellitus type: type 2 Diabetes mellitus complication status: with circulatory complication (6) Hypertension Code(s): I10 - ESSENTIAL (PRIMARY) HYPERTENSION Qualifiers: Hypertension type: essential hypertension Qualified Code(s): I10 - Essential (primary) hypertension Assessment/Plan (1) Acute CHF Assessment/Plan: -appreciate cardiology and nephrology assistance -managed by HD Code(s): I50.9 - HEART FAILURE, UNSPECIFIED Qualifiers: Heart failure type: combined systolic/diastolic Qualified Code(s): - Acute combined systolic/diastolic dysfunction (2) Acute on chronic renal failure Assessment/Plan: -currently on HD -permacath placement tomorrow -will need detention HD Code(s): N17.9 - ACUTE KIDNEY FAILURE, UNSPECIFIED; N18.9 - CHRONIC KIDNEY DISEASE, UNSPECIFIED Qualifiers: Acute renal failure type: unspecified Chronic kidney disease stage: unspecified stage Qualified Code(s): N17.9 - Acute kidney failure, unspecified ; N18.9 - Chronic kidney disease, unspecified; N18.9 - Chronic kidney disease, unspecified (3) Hypoxia Assessment/Plan: -resolved Code(s): R09.02 - HYPOXEMIA (4) Atrial fibrillation Assessment/Plan: -rate controlled -cardiology following -continue plavix, not on AC Code(s): I48.91 - UNSPECIFIED ATRIAL FIBRILLATION Qualifiers: Atrial fibrillation type: paroxysmal Qualified Code(s): I48.0 - Paroxysmal atrial fibrillation (5) Diabetes Assessment/Plan: -continue current regimen Code(s): E11.9 - TYPE 2 DIABETES MELLITUS WITHOUT COMPLICATIONS Qualifiers: Diabetes mellitus type: type 2 Diabetes mellitus complication status: with circulatory complication (6) Hypertension Assessment/Plan: -on toprol xl, hydralazine, isordil, and torsemide -controlled Code(s): I10 - ESSENTIAL (PRIMARY) HYPERTENSION Qualifiers: Hypertension type: essential hypertension Qualified Code(s): I10 - Essential (primary) hypertension (7) UTI -finished full course zosyn
[2017-12-06] MEDS ORDERED: SODIUM CHLORIDE 250 ML IV PRN (13:00)
[2017-12-06] MEDS ORDERED: HEPARIN NA (PORCINE) 5,000 UNITS/ML 1ML VIAL IVPUSH ONE (13:30)
[2017-12-06 13:44] LABS: HEMATOCRIT 27.8 % (35.4-49); HEMOGLOBIN 9.1 GM/dL (11.7-16.9); MCH 30.3 pg (25.7-33.7); MCHC 32.9 g/dl (32.0-35.9); MEAN CELL VOLUME 92.2 fl (80-96); PLATELET COUNT 154 K/MM3 (134-434); RBC 3.01 M/mm3 (4.00-5.60); RDW 19.5 % (11.9-15.9); WHITE BLOOD COUNT 7.5 K/mm3 (4.0-10.0)
[2017-12-06] MEDS ORDERED: EPOETIN ALFA 10,000 UNIT/1 ML VIAL IVPUSH ONE (14:00)
[2017-12-06] MEDS ORDERED: IRON SUCROSE INJECTION 100 MG in SODIUM CHLORIDE 95 ML IVPB ONE (14:00)
[2017-12-06] MEDS: ISOSORBIDE DINITRATE 10 MG TABLET (FP) PO SCH ×2 (14:01→17:25)
[2017-12-06 14:04] LABS: ANION GAP 7 (8-16); BLOOD UREA NITROGEN 61 mg/dL (7-18); CALCIUM 7.4 mg/dL (8.5-10.1); CHLORIDE 107 mmol/L (98-107); CO2 30 mmol/L (21-32); CREATININE 3.7 mg/dL (0.7-1.3); GLUCOSE,RANDOM 117 mg/dL (74-106); POTASSIUM 3.4 mmol/L (3.5-5.1); SODIUM 144 mmol/L (136-145)
--- NOTE | 2017-12-06 15:04 | PN ---
Progress Note (short form) - Note Progress Note: Renal follow up for KELLI on CKD Pt seen and examined during dialysis no acute complaints no sob, chest pain, abd pain BP stable, goal UF is 3L Vital Signs Temperature 97.4 F L 12/06/17 14:05 Pulse Rate 69 12/06/17 14:05 Respiratory Rate 18 12/06/17 14:05 Blood Pressure 148/69 12/06/17 14:05 O2 Sat by Pulse Oximetry (%) 93 L 12/06/17 09:00 Intake & Output 12/03/17 12/04/17 12/05/17 12/06/17 23:59 23:59 23:59 23:59 Intake Total 405 116 250 250 Output Total 200 400 300 Balance 205 116 -150 -50 Weight 72.756 kg 71.849 kg 70.987 kg 70.931 kg NAD, awake and alert RRR No rales, wheeze, crackles NO LE edema CBC, BMP 12/06/17 13:20 12/06/17 13:20 Current Medications Atorvastatin Calcium (Lipitor -) 40 mg PO HS [facility] Last Admin: 12/05/17 21:45 Dose: 40 mg Calcium Acetate (Phoslo -) 667 mg PO TIDCM [facility] Last Admin: 12/06/17 12:36 Dose: 667 mg Clopidogrel Bisulfate (Plavix -) 75 mg PO DAILY [facility] Last Admin: 12/06/17 10:18 Dose: 75 mg Hydralazine HCl (Apresoline -) 50 mg PO TID [facility] Last Admin: 12/06/17 14:02 Dose: Not Given Insulin Aspart (Novolog Vial Sliding Scale -) 1 vial SQ HS [facility] PRN Reason: Protocol Last Admin: 12/05/17 21:46 Dose: 3 unit Insulin Aspart (Novolog Vial Sliding Scale -) 1 vial SQ TIDAC [facility] PRN Reason: Protocol Last Admin: 12/06/17 11:14 Dose: Not Given Insulin Detemir (Levemir Vial) 10 units SQ HS [facility] Last Admin: 12/05/17 21:47 Dose: 10 units Isosorbide Dinitrate (Isordil -) 20 mg PO TIDISORDIL [facility] Last Admin: 12/06/17 14:01 Dose: Not Given Metoprolol Succinate (Toprol Xl -) 50 mg PO DAILY [facility] Last Admin: 12/06/17 10:18 Dose: 50 mg Sodium Bicarbonate (Sodium Bicarbonate -) 650 mg PO BID [facility] Last Admin: 12/06/17 10:18 Dose: 650 mg Tamsulosin HCl (Flomax -) 0.4 mg PO HS [facility] Last Admin: 12/05/17 21:45 Dose: 0.4 mg Torsemide (Demadex -) 80 mg PO DAILY [facility] Last Admin: 12/06/17 10:17 Dose: 80 mg 67 year old gentleman with PMhx of CKD Stage 3, CHF, AFib, Hypertension who presented with weakness and sob and found to have CHF exacerbation with KELLI #Progressive CKD likely due to diabetic nephropathy now ESRD requiring dialysis #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
--- NOTE | 2017-12-06 15:54 | PN ---
Progress Note, Physician History of Present Illness: stable for permacath placement - Current Medication List Current Medications: Active Medications Atorvastatin Calcium (Lipitor -) 40 mg PO HS [facility] Last Admin: 12/05/17 21:45 Dose: 40 mg Calcium Acetate (Phoslo -) 667 mg PO TIDCM [facility] Last Admin: 12/06/17 12:36 Dose: 667 mg Clopidogrel Bisulfate (Plavix -) 75 mg PO DAILY [facility] Last Admin: 12/06/17 10:18 Dose: 75 mg Hydralazine HCl (Apresoline -) 50 mg PO TID [facility] Last Admin: 12/06/17 14:02 Dose: Not Given Insulin Aspart (Novolog Vial Sliding Scale -) 1 vial SQ HS [facility] PRN Reason: Protocol Last Admin: 12/05/17 21:46 Dose: 3 unit Insulin Aspart (Novolog Vial Sliding Scale -) 1 vial SQ TIDAC [facility] PRN Reason: Protocol Last Admin: 12/06/17 11:14 Dose: Not Given Insulin Detemir (Levemir Vial) 10 units SQ HS [facility] Last Admin: 12/05/17 21:47 Dose: 10 units Isosorbide Dinitrate (Isordil -) 20 mg PO TIDISORDIL [facility] Last Admin: 12/06/17 14:01 Dose: Not Given Metoprolol Succinate (Toprol Xl -) 50 mg PO DAILY [facility] Last Admin: 12/06/17 10:18 Dose: 50 mg Sodium Bicarbonate (Sodium Bicarbonate -) 650 mg PO BID [facility] Last Admin: 12/06/17 10:18 Dose: 650 mg Tamsulosin HCl (Flomax -) 0.4 mg PO HS [facility] Last Admin: 12/05/17 21:45 Dose: 0.4 mg Torsemide (Demadex -) 80 mg PO DAILY [facility] Last Admin: 12/06/17 10:17 Dose: 80 mg - Objective Vital Signs: Vital Signs Temperature 97.4 F L 12/06/17 14:05 Pulse Rate 96 H 12/06/17 15:00 Respiratory Rate 18 12/06/17 15:00 Blood Pressure 127/88 12/06/17 15:00 O2 Sat by Pulse Oximetry (%) 93 L 12/06/17 09:00 Constitutional: Yes: No Distress, Calm Cardiovascular: Yes: S1, S2 Respiratory: Yes: Regular, CTA Bilaterally Gastrointestinal: Yes: Normal Bowel Sounds, Soft Musculoskeletal: Yes: WNL Extremities: Yes: WNL Neurological: Yes: Alert, Oriented Psychiatric: Yes: Alert, Oriented Labs: CBC, BMP 12/06/17 13:20 12/06/17 13:20 INR, PTT INR 0.99 (0.82-1.09) 11/16/17 16:00 Assessment/Plan Problem List - Problems (1) Acute CHF Code(s): I50.9 - HEART FAILURE, UNSPECIFIED Qualifiers: Heart failure type: diastolic Qualified Code(s): I50.31 - Acute diastolic ( congestive) heart failure (2) Acute on chronic renal failure Code(s): N17.9 - ACUTE KIDNEY FAILURE, UNSPECIFIED; N18.9 - CHRONIC KIDNEY DISEASE, UNSPECIFIED Qualifiers: Acute renal failure type: unspecified Chronic kidney disease stage: unspecified stage Qualified Code(s): N17.9 - Acute kidney failure, unspecified ; N18.9 - Chronic kidney disease, unspecified; N18.9 - Chronic kidney disease, unspecified (3) Hypoxia Code(s): R09.02 - HYPOXEMIA (4) Atrial fibrillation Code(s): I48.91 - UNSPECIFIED ATRIAL FIBRILLATION Qualifiers: Atrial fibrillation type: paroxysmal Qualified Code(s): I48.0 - Paroxysmal atrial fibrillation (5) Diabetes Code(s): E11.9 - TYPE 2 DIABETES MELLITUS WITHOUT COMPLICATIONS Qualifiers: Diabetes mellitus type: type 2 Diabetes mellitus complication status: with circulatory complication (6) Hypertension Code(s): I10 - ESSENTIAL (PRIMARY) HYPERTENSION Qualifiers: Hypertension type: essential hypertension Qualified Code(s): I10 - Essential (primary) hypertension (7) UTI complicated plan stable off of abx continue to monitor for permacath rest as per the team
[2017-12-06] MEDS: ATORVASTATIN CA 40 MG TABLET (FP) PO SCH (21:40)
[2017-12-06] MEDS: TAMSULOSIN HCL 0.4 MG CAP.ER.24H (FP) PO SCH (21:40)
[2017-12-06] MEDS: INSULIN (LEVEMIR) 100 UNITS/ML UNITS SQ SCH (21:40)
[2017-12-07] MEDS: hydrALAZINE HCL 50 MG TABLET (FP) PO SCH ×3 (06:04→21:35)
[2017-12-07] MEDS: INSULIN SLIDING SCALE (NOVOLOG) 1 VIAL SQ SCH ×2 (06:04→17:57)
[2017-12-07 07:34] LABS: BASO % 0.9 % (0-2.0); EOS % 0.9 % (0-4.5); HEMATOCRIT 26.4 % (35.4-49); HEMOGLOBIN 8.7 GM/dL (11.7-16.9); LYMPH % 9.7 % (8-40); MCH 30.3 pg (25.7-33.7); MEAN CELL VOLUME 91.8 fl (80-96); MEAN PLT VOLUME 9.1 fl (7.5-11.1); MONO % 10.5 % (3.8-10.2); PLATELET COUNT 138 K/MM3 (134-434); RBC 2.87 M/mm3 (4.00-5.60); RDW 19.1 % (11.9-15.9)
[2017-12-07 08:07] LABS: ANION GAP 10 (8-16); BLOOD UREA NITROGEN 40 mg/dL (7-18); CALCIUM 7.6 mg/dL (8.5-10.1); CHLORIDE 103 mmol/L (98-107); CO2 29 mmol/L (21-32); CREATININE 2.9 mg/dL (0.7-1.3); GLUCOSE,RANDOM 194 mg/dL (74-106); PHOSPHOROUS 2.6 mg/dL (2.5-4.9); POTASSIUM 3.6 mmol/L (3.5-5.1); SODIUM 142 mmol/L (136-145)
[2017-12-07] MEDS: TORSEMIDE 20 MG TABLET (FP) PO SCH (09:45)
[2017-12-07] MEDS: ISOSORBIDE DINITRATE 10 MG TABLET (FP) PO SCH ×3 (09:45→17:57)
[2017-12-07] MEDS: CALCIUM ACETATE 667 MG CAPSULE (FP) PO SCH ×3 (09:45→17:57)
[2017-12-07] MEDS ORDERED: MIDAZOLAM HCL 2 MG/2 ML SINGLE DOSE VIAL ONE (10:36)
[2017-12-07] MEDS ORDERED: ceFAZolin SODIUM 1 GM VIAL IVPB ONE (10:46)
[2017-12-07] MEDS ORDERED: LIDOCAINE HCL 1%, 10 MG/ML (50 mL VIAL) IJ ONE ×2 (10:52)
[2017-12-07] MEDS ORDERED: ceFAZolin SODIUM 1 GM VIAL ONE (10:56)
[2017-12-07] MEDS ORDERED: ONDANSETRON 4 MG/2 ML VIAL IVPUSH PRN ×2 (11:08→11:36)
[2017-12-07] MEDS ORDERED: LACTATED RINGERS SOLUTION 1,000 ML IV STA (11:08)
[2017-12-07] MEDS ORDERED: SODIUM CHLORIDE 1,000 ML IV SCH ×2 (11:15→11:36)
--- NOTE | 2017-12-07 11:20 | OP ---
Operative Note - Note: Operative Date: 12/07/17 Pre-Operative Diagnosis: ESRD Operation: Insertion of permacath Post-Operative Diagnosis: Same as Pre-op Surgeon: Conor Canchola Anesthesia: Fractional Estimated Blood Loss (mls): 20 Operative Report Dictated: Yes
--- NOTE | 2017-12-07 12:51 | OP ---
DATE OF OPERATION: 12/07/2017 PREOPERATIVE DIAGNOSIS: End-stage renal disease. POSTOPERATIVE DIAGNOSIS: End-stage renal disease. PROCEDURE: Insertion of PermCath. SURGEON: Conor Castorena DO ANESTHESIA: Fractional. BLOOD LOSS: 20 mL The patient is a 67-year-old male who comes in with renal failure. He had a Shiley catheter placed and now needs a permanent dialysis catheter placement. Patient was consented for the procedure, understanding all risks, benefits, and alternatives. He was then taken to the operating room. Once in the operating room, he was laid on the operating table in supine manner, and the area of the right neck and chest were prepped and draped in a sterile surgical manner. We then went ahead and under ultrasound guidance visualized the right internal jugular vein, and 10 mL of lidocaine 1% was injected there. We then under ultrasound guidance took our micropuncture needle and punctured the right internal jugular vein. Micropuncture wire was inserted. Micropuncture sheath was inserted, and a 0.035 floppy guidewire was inserted under fluoroscopy. We then injected 10 mL of lidocaine 1% above and below the clavicle. We then took an 11 blade and made a 1-cm incision at the puncture site. We took a 15 blade and made a 1-cm incision below the clavicle. We then tunneled the catheter up to the puncture site. We then placed our break-away sheath over the guidewire into the vein under fluoroscopy, and the cannula and guidewire were then removed. We then placed the catheter inside the sheath, and the sheath was broken away as the catheter was placed inside the vein. The neck of the catheter was nice and smooth. Tip of the catheter was located outside the right atrium. We then josué back on each port of the catheter, and there was good flow. Heparinized saline was injected; 2000 units of IV heparin were injected into each port. We then took 4-0 Biosyn, and two simple sutures were placed at the puncture site. Nylon 3-0 was used, and the catheter was attached to the skin. Biopatch, Steri-Strips, 4 x 4, and Tegaderm were placed. The patient was transferred to the PACU in stable condition . Chest x-ray will be obtained prior to leaving the operating room. Patient had a right femoral vein Shiley catheter, and the Shiley catheter was removed, and pressure was held in the right groin for 2 minutes. After there was no overt bleeding, area was wet and dried, and Dermabond was placed. The patient tolerated the procedure with no complications. Patient transferred to PACU in stable condition. CONOR CASTORENA DO [id number]
--- NOTE | 2017-12-07 12:58 | PN ---
Progress Note (short form) - Note Progress Note: PULMONARY s/p permacath placement. Denies shortness of breath. Some soreness at site. Last Vital Signs Temp Pulse Resp BP Pulse Ox 98.6 F 69 16 149/75 100 12/07/17 12:15 12/07/17 12:15 12/07/17 12:15 12/07/17 12:15 12/07/17 12:15 Gen: NAD at rest Heart: RRR Lung: decreased breath sounds at the bases Abd: soft, nontender Ext: no edema CBC, BMP 12/07/17 06:18 12/07/17 06:18 Active Medications Atorvastatin Calcium (Lipitor -) 40 mg PO HS [facility] Calcium Acetate (Phoslo -) 667 mg PO TIDCM [facility] Clopidogrel Bisulfate (Plavix -) 75 mg PO DAILY [facility] Fentanyl (Sublimaze Injection -) 50 mcg IVPUSH [id number] PRN PRN Reason: PAIN-PACU ORDER X 4 DOSES ONLY Hydralazine HCl (Apresoline -) 50 mg PO TID [facility] Sodium Chloride (Normal Saline -) 1,000 mls @ 42 mls/hr IV ASDIR [facility] Insulin Aspart (Novolog Vial Sliding Scale -) 1 vial SQ HS [facility] PRN Reason: Protocol Insulin Aspart (Novolog Vial Sliding Scale -) 1 vial SQ TIDAC [facility] PRN Reason: Protocol Insulin Detemir (Levemir Vial) 10 units SQ HS [facility] Isosorbide Dinitrate (Isordil -) 20 mg PO TIDISORDIL [facility] Metoprolol Succinate (Toprol Xl -) 50 mg PO DAILY [facility] Ondansetron HCl (Zofran Injection) 4 mg IVPUSH Q6H PRN PRN Reason: NAUSEA AND/OR VOMITING Sodium Bicarbonate (Sodium Bicarbonate -) 650 mg PO BID [facility] Tamsulosin HCl (Flomax -) 0.4 mg PO HS [facility] Torsemide (Demadex -) 80 mg PO DAILY [facility] A/P Acute on Chronic Systolic Heart Failure Right Pleural Effusion likely from above Pulmonary HTN Atrial Fibrillation Acute on Chronic Renal Failure now on HD AAA s/p repair HTN DM PAD - continue torsemide - HD per renal - monitor urine output, creatinine - O2 to keep Spo2 >90% - rate control - beta dillan - DVT prophylaxis
--- NOTE | 2017-12-07 12:58 | PN ---
Progress Note, Physician Chief Complaint: Mr Howard is s/p permacath placement. No cp, sob, n/v. - Current Medication List Current Medications: Active Medications Atorvastatin Calcium (Lipitor -) 40 mg PO HS [facility] Calcium Acetate (Phoslo -) 667 mg PO TIDCM [facility] Clopidogrel Bisulfate (Plavix -) 75 mg PO DAILY [facility] Fentanyl (Sublimaze Injection -) 50 mcg IVPUSH [id number] PRN PRN Reason: PAIN-PACU ORDER X 4 DOSES ONLY Hydralazine HCl (Apresoline -) 50 mg PO TID [facility] Sodium Chloride (Normal Saline -) 1,000 mls @ 42 mls/hr IV ASDIR [facility] Insulin Aspart (Novolog Vial Sliding Scale -) 1 vial SQ HS [facility] PRN Reason: Protocol Insulin Aspart (Novolog Vial Sliding Scale -) 1 vial SQ TIDAC [facility] PRN Reason: Protocol Insulin Detemir (Levemir Vial) 10 units SQ HS [facility] Isosorbide Dinitrate (Isordil -) 20 mg PO TIDISORDIL [facility] Metoprolol Succinate (Toprol Xl -) 50 mg PO DAILY [facility] Ondansetron HCl (Zofran Injection) 4 mg IVPUSH Q6H PRN PRN Reason: NAUSEA AND/OR VOMITING Sodium Bicarbonate (Sodium Bicarbonate -) 650 mg PO BID [facility] Tamsulosin HCl (Flomax -) 0.4 mg PO HS [facility] Torsemide (Demadex -) 80 mg PO DAILY [facility] - Objective Vital Signs: Vital Signs Temperature 37.0 C 12/07/17 12:15 Pulse Rate 69 12/07/17 12:15 Respiratory Rate 16 12/07/17 12:15 Blood Pressure 149/75 12/07/17 12:15 O2 Sat by Pulse Oximetry (%) 100 12/07/17 12:15 Constitutional: Yes: Well Nourished, No Distress, Calm Cardiovascular: Yes: Regular Rate and Rhythm. No: Gallop, Murmur, Rub Respiratory: Yes: Regular, On Nasal O2, Rales. No: CTA Bilaterally, Rhonchi, Wheezes Gastrointestinal: Yes: Normal Bowel Sounds, Soft. No: Distention, Tenderness Extremities: Yes: WNL Edema: No Labs: CBC, BMP 12/07/17 06:18 12/07/17 06:18 INR, PTT INR 0.99 (0.82-1.09) 11/16/17 16:00 Problem List - Problems (1) Acute CHF Code(s): I50.9 - HEART FAILURE, UNSPECIFIED Qualifiers: Heart failure type: combined systolic and diastolic Qualified Code(s): I50.41 - Acute combined systolic (congestive) and diastolic (congestive) heart failure (2) Acute on chronic renal failure Code(s): N17.9 - ACUTE KIDNEY FAILURE, UNSPECIFIED; N18.9 - CHRONIC KIDNEY DISEASE, UNSPECIFIED Qualifiers: Acute renal failure type: unspecified Chronic kidney disease stage: unspecified stage Qualified Code(s): N17.9 - Acute kidney failure, unspecified ; N18.9 - Chronic kidney disease, unspecified; N18.9 - Chronic kidney disease, unspecified (3) Hypoxia Code(s): R09.02 - HYPOXEMIA (4) Atrial fibrillation Code(s): I48.91 - UNSPECIFIED ATRIAL FIBRILLATION Qualifiers: Atrial fibrillation type: paroxysmal Qualified Code(s): I48.0 - Paroxysmal atrial fibrillation (5) Diabetes Code(s): E11.9 - TYPE 2 DIABETES MELLITUS WITHOUT COMPLICATIONS Qualifiers: Diabetes mellitus type: type 2 Diabetes mellitus complication status: with circulatory complication (6) Hypertension Code(s): I10 - ESSENTIAL (PRIMARY) HYPERTENSION Qualifiers: Hypertension type: essential hypertension Qualified Code(s): I10 - Essential (primary) hypertension Assessment/Plan (1) Acute CHF Assessment/Plan: -appreciate cardiology and nephrology assistance -managed by HD Code(s): I50.9 - HEART FAILURE, UNSPECIFIED Qualifiers: Heart failure type: combined systolic/diastolic Qualified Code(s): - Acute combined systolic/diastolic dysfunction (2) ESRD Assessment/Plan: -currently on HD -permacath placed today Code(s): N17.9 - ACUTE KIDNEY FAILURE, UNSPECIFIED; N18.9 - CHRONIC KIDNEY DISEASE, UNSPECIFIED Qualifiers: Acute renal failure type: unspecified Chronic kidney disease stage: unspecified stage Qualified Code(s): N17.9 - Acute kidney failure, unspecified ; N18.9 - Chronic kidney disease, unspecified; N18.9 - Chronic kidney disease, unspecified (3) Hypoxia Assessment/Plan: -resolved Code(s): R09.02 - HYPOXEMIA (4) Atrial fibrillation Assessment/Plan: -rate controlled -cardiology following -continue plavix, not on AC Code(s): I48.91 - UNSPECIFIED ATRIAL FIBRILLATION Qualifiers: Atrial fibrillation type: paroxysmal Qualified Code(s): I48.0 - Paroxysmal atrial fibrillation (5) Diabetes Assessment/Plan: -continue current regimen Code(s): E11.9 - TYPE 2 DIABETES MELLITUS WITHOUT COMPLICATIONS Qualifiers: Diabetes mellitus type: type 2 Diabetes mellitus complication status: with circulatory complication (6) Hypertension Assessment/Plan: -on toprol xl, hydralazine, isordil, and torsemide -controlled Code(s): I10 - ESSENTIAL (PRIMARY) HYPERTENSION Qualifiers: Hypertension type: essential hypertension Qualified Code(s): I10 - Essential (primary) hypertension (7) UTI -finished full course edwigen
--- NOTE | 2017-12-07 15:39 | PN ---
Progress Note, Physician History of Present Illness: soledad no complaints had a permacath placed for dialysis - Current Medication List Current Medications: Active Medications Atorvastatin Calcium (Lipitor -) 40 mg PO HS [facility] Calcium Acetate (Phoslo -) 667 mg PO TIDCM [facility] Last Admin: 12/07/17 13:18 Dose: 667 mg Clopidogrel Bisulfate (Plavix -) 75 mg PO DAILY [facility] Fentanyl (Sublimaze Injection -) 50 mcg IVPUSH [id number] PRN PRN Reason: PAIN-PACU ORDER X 4 DOSES ONLY Hydralazine HCl (Apresoline -) 50 mg PO TID [facility] Last Admin: 12/07/17 13:18 Dose: 50 mg Insulin Aspart (Novolog Vial Sliding Scale -) 1 vial SQ HS [facility] PRN Reason: Protocol Insulin Aspart (Novolog Vial Sliding Scale -) 1 vial SQ TIDAC [facility] PRN Reason: Protocol Insulin Detemir (Levemir Vial) 10 units SQ HS [facility] Isosorbide Dinitrate (Isordil -) 20 mg PO TIDISORDIL [facility] Last Admin: 12/07/17 13:18 Dose: 20 mg Metoprolol Succinate (Toprol Xl -) 50 mg PO DAILY [facility] Ondansetron HCl (Zofran Injection) 4 mg IVPUSH Q6H PRN PRN Reason: NAUSEA AND/OR VOMITING Sodium Bicarbonate (Sodium Bicarbonate -) 650 mg PO BID [facility] Tamsulosin HCl (Flomax -) 0.4 mg PO HS [facility] Torsemide (Demadex -) 80 mg PO DAILY [facility] - Objective Vital Signs: Vital Signs Temperature 98.9 F 12/07/17 14:32 Pulse Rate 69 12/07/17 14:32 Respiratory Rate 18 12/07/17 14:32 Blood Pressure 134/57 12/07/17 14:32 O2 Sat by Pulse Oximetry (%) 100 12/07/17 12:15 Constitutional: Yes: No Distress, Calm Cardiovascular: Yes: S1, S2 Respiratory: Yes: Regular, CTA Bilaterally Gastrointestinal: Yes: Normal Bowel Sounds, Soft Musculoskeletal: Yes: WNL Extremities: Yes: WNL Neurological: Yes: Alert, Oriented Psychiatric: Yes: Alert, Oriented Labs: CBC, BMP 12/07/17 06:18 12/07/17 06:18 INR, PTT INR 0.99 (0.82-1.09) 11/16/17 16:00 Assessment/Plan Problem List - Problems (1) Acute CHF Code(s): I50.9 - HEART FAILURE, UNSPECIFIED Qualifiers: Heart failure type: diastolic Qualified Code(s): I50.31 - Acute diastolic ( congestive) heart failure (2) Acute on chronic renal failure Code(s): N17.9 - ACUTE KIDNEY FAILURE, UNSPECIFIED; N18.9 - CHRONIC KIDNEY DISEASE, UNSPECIFIED Qualifiers: Acute renal failure type: unspecified Chronic kidney disease stage: unspecified stage Qualified Code(s): N17.9 - Acute kidney failure, unspecified ; N18.9 - Chronic kidney disease, unspecified; N18.9 - Chronic kidney disease, unspecified (3) Hypoxia Code(s): R09.02 - HYPOXEMIA (4) Atrial fibrillation Code(s): I48.91 - UNSPECIFIED ATRIAL FIBRILLATION Qualifiers: Atrial fibrillation type: paroxysmal Qualified Code(s): I48.0 - Paroxysmal atrial fibrillation (5) Diabetes Code(s): E11.9 - TYPE 2 DIABETES MELLITUS WITHOUT COMPLICATIONS Qualifiers: Diabetes mellitus type: type 2 Diabetes mellitus complication status: with circulatory complication (6) Hypertension Code(s): I10 - ESSENTIAL (PRIMARY) HYPERTENSION Qualifiers: Hypertension type: essential hypertension Qualified Code(s): I10 - Essential (primary) hypertension (7) UTI complicated plan stable off of abx continue to monitor permacath await for dialysis rest as per the team
--- NOTE | 2017-12-07 16:53 | PN ---
Progress Note (short form) - Note Progress Note: Chief Complaint: sob History of Present Illness: Had permacath placed today. no cp, palpitations, syncope sob ex cigs Current Medications Atorvastatin Calcium (Lipitor -) 40 mg PO HS [facility] Calcium Acetate (Phoslo -) 667 mg PO TIDCM [facility] Last Admin: 12/07/17 13:18 Dose: 667 mg Clopidogrel Bisulfate (Plavix -) 75 mg PO DAILY [facility] Fentanyl (Sublimaze Injection -) 50 mcg IVPUSH [id number] PRN PRN Reason: PAIN-PACU ORDER X 4 DOSES ONLY Hydralazine HCl (Apresoline -) 50 mg PO TID [facility] Last Admin: 12/07/17 13:18 Dose: 50 mg Insulin Aspart (Novolog Vial Sliding Scale -) 1 vial SQ HS [facility] PRN Reason: Protocol Insulin Aspart (Novolog Vial Sliding Scale -) 1 vial SQ TIDAC [facility] PRN Reason: Protocol Insulin Detemir (Levemir Vial) 10 units SQ HS [facility] Isosorbide Dinitrate (Isordil -) 20 mg PO TIDISORDIL [facility] Last Admin: 12/07/17 13:18 Dose: 20 mg Metoprolol Succinate (Toprol Xl -) 50 mg PO DAILY [facility] Ondansetron HCl (Zofran Injection) 4 mg IVPUSH Q6H PRN PRN Reason: NAUSEA AND/OR VOMITING Sodium Bicarbonate (Sodium Bicarbonate -) 650 mg PO BID [facility] Tamsulosin HCl (Flomax -) 0.4 mg PO HS [facility] Torsemide (Demadex -) 80 mg PO DAILY [facility] - Objective Vital Signs: Vital Signs - 24 hr 12/06/17 12/06/17 12/07/17 17:00 21:00 02:10 Temperature 98.9 F 97.3 F L 98.9 F Pulse Rate 69 87 70 Respiratory 20 18 18 Rate Blood Pressure 156/78 131/54 127/47 O2 Sat by Pulse 96 Oximetry (%) 12/07/17 12/07/17 12/07/17 06:00 11:16 11:30 Temperature 99.2 F 98.9 F Pulse Rate 75 69 69 Respiratory 18 16 18 Rate Blood Pressure 138/58 148/67 132/72 O2 Sat by Pulse 100 100 Oximetry (%) 12/07/17 12/07/17 12/07/17 11:45 12:00 12:15 Temperature 98.6 F Pulse Rate 69 69 69 Respiratory 16 18 16 Rate Blood Pressure 141/69 150/72 149/75 O2 Sat by Pulse 100 100 100 Oximetry (%) 12/07/17 14:32 Temperature 98.9 F Pulse Rate 69 Respiratory 18 Rate Blood Pressure 134/57 O2 Sat by Pulse Oximetry (%) Intake & Output 12/05/17 12/06/17 12/07/17 12/08/17 07:59 07:59 07:59 07:59 Intake Total 500 810 150 Output Total 700 550 10 Balance -200 260 140 Weight 156 lb 8 oz 156 lb 6 oz 151 lb 4 oz Constitutional: Yes: No Distress, Calm Eyes: No: Sclera Icterus HENT: No: Nasal Congestion Cardiovascular: Yes: Regular Rate and Rhythm, JVD elevated, S1, S2,. No: Gallop , Murmur Respiratory: Yes: diminshed bases No: Accessory Muscle Use, Rales, Wheezes Gastrointestinal: Yes: Normal Bowel Sounds, Soft. No: Tenderness Extremities: No: Cold Edema: no le edema bl Integumentary: No: Jaundice Neurological: Yes: Alert, Oriented (x3) Psychiatric: No: Agitated Labs: CBC, BMP 12/07/17 06:18 12/07/17 06:18 ecg vpaced, underlying appears aflutter tele: demand v-pacing with pvc's vs. [place] rhythm cxr 12/07: small to moderate right sided and trace left sided pleural effusions. right basilar opacity, ? compressive atelectasis. No change in congestive findings in comparison to prior. echo 10/2017: moderate concentric lvh. 1+ lve. mod-sev decreased LV sys fn, global. nl RV size. mod decreased RV sys fn. mod mitra. mod-sev mac. mod mr. mod-sev tr. rvsp > 60. trivial effusion. echo 11/2016: low nl lvef, mild lvh, nl rv, mitra, mod mr/tr, mod phtn echo 02/2015: mild lv dil, nl lvef, basal post-lat HK, nl rv size/fcn, severe biatrial dil, sev mr, sev tr, sev phtn, mod pr echo 11/2014: nl lv/rv, mod-sev mr, sev tr, sev phtn renal u/s: chronic medical renal disease. trace free fluid in upper abdomen. bilateral pleural effusions. see emr for detailed findings. mibi 11/2016: no ischemia CXR: worse chf a/p: 67 m hx cad s/p nstemi/pci (11/2014 pt had chf with +trops so sent for cath [facility] and had rota and GIOVANNI to pLAD, residual dLCx and ramus 50-60% both), dchf, htn, hld, dm, ckd, afib on coumadin, cva, ppm (biotronik 05/2012), remote AAA repair, pad s/p left fem stent 2015 and left toe amp here with sob. acute systolic chf/new systolic cardiomyopathy: - echo here shows new systolic cardiomyopathy. will need to consider stress vs. cath once euvolemic (inpatient vs. 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 - ? etiology: r/o multivessel CAD as above. no tachyarrhythmia burden here. ? RV apical pacing cardiomyopathy--would have low threshold to consider [facility] upgrade. defer to dr liriano (outpt cardio) once HF is better optimized. -has been receiving doses of lasix 80 iv qd to bid here, with progressively worsening renal fxn, no improvement in radiographic findings. wt currently unchanged vs initial wt here (162). ? dry wt. office dry wt 09/07 visit 154 lbs -ineffective diuresis here despite milrinone, lasix with metolazone. -now started HD for ESRD with refractory fluid overload, per renal team recs -po torsemide per renal, fluid mgmt/UF per renal -12/04: wt declining. no sob, remains with marked JVD. rpt cxr -has been on milrinone for many days now. he was never hypotensive or with severe low-output sx's. given potential for milrinone toxic levels to accumulate in ESRD, will stop milrinone and observe volume status response to HD /UF -continue metoprolol. cont uptitration of hydral, nitrates - 12/05-: milrinone now off. sob improving with HD. con't hd for vol removal per renal. - 12/07: s/p permacath placement for hd. cxr still with persistent congestive changes/effusions. con't volume removal per renal. Possible persistent ectopy on tele, will uptitrate metoprolol to 50 bid. kelli on ckd: -as above VTach: - episode of NSVT x7b on tele while on milrinone. No sig recurrence off milrinone. -K and Mg optimization (usual aggressive targets) -observe tele -cont BB as doing, uptitration 12/07. cad/pci: -stable, no cp/angina/acs -preserved lvef echo 2017 and no ischemia on 2017 mibi, but with known cad/ residual disease now with new cardiomypathy. ischemic eval as mentioned above. -cont home bb, statin, plavix htn: -cont bb, hydral hld: -cont statin afib,aflutter,atach: -rate controlled as pt has complete heart block with ppm -has hx of cva and was on AC and dapt previously before a prior GIB, and aortoenteric fistula. was followed by vascular at [facility] [place] [facility], now by Dr. Gan. DAPT was deemed safe to resume in 2016 after LE stent. For now, cont plavix monotherapy. defer to outpatient cardiology ppm (biotronik for CHB): -Normal fcn on recent office check, next routine check planned 11/2017 remote aaa repair/pad s/p multiple interventions and toe amputations : -stable, continue bp control. plavix, statin anemia: -s/p prbcs
[2017-12-07] MEDS ORDERED: SODIUM CHLORIDE 250 ML IV PRN (19:05)
--- NOTE | 2017-12-07 19:05 | PN ---
Progress Note (short form) - Note Progress Note: Renal follow up for KELLI on CKD Pt seen and examined at the bedside amble to ambulate w/o difficulty no sob, chest pain Vital Signs Temperature 98.9 F 12/07/17 14:32 Pulse Rate 69 12/07/17 14:32 Respiratory Rate 18 12/07/17 14:32 Blood Pressure 134/57 12/07/17 14:32 O2 Sat by Pulse Oximetry (%) 100 12/07/17 12:15 Intake & Output 12/04/17 12/05/17 12/06/17 12/07/17 23:59 23:59 23:59 23:59 Intake Total 116 250 810 400 Output Total 400 550 685 Balance 116 -150 260 -285 Weight 71.849 kg 70.987 kg 70.931 kg 68.606 kg NAD, awake and alert RRR No rales, wheeze, crackles NO LE edema CBC, BMP 12/07/17 06:18 12/07/17 06:18 Laboratory Tests 12/01/17 12/06/17 12/07/17 06:32 13:20 06:18 Calcium 7.1 L 7.4 L 7.6 L Phosphorus 7.2 H 4.0 D 2.6 D Magnesium 2.6 H 2.0 Current Medications Atorvastatin Calcium (Lipitor -) 40 mg PO HS [facility] Calcium Acetate (Phoslo -) 667 mg PO TIDCM [facility] Last Admin: 12/07/17 17:57 Dose: 667 mg Clopidogrel Bisulfate (Plavix -) 75 mg PO DAILY [facility] Fentanyl (Sublimaze Injection -) 50 mcg IVPUSH [id number] PRN PRN Reason: PAIN-PACU ORDER X 4 DOSES ONLY Hydralazine HCl (Apresoline -) 50 mg PO TID [facility] Last Admin: 12/07/17 13:18 Dose: 50 mg Insulin Aspart (Novolog Vial Sliding Scale -) 1 vial SQ HS [facility] PRN Reason: Protocol Insulin Aspart (Novolog Vial Sliding Scale -) 1 vial SQ TIDAC [facility] PRN Reason: Protocol Last Admin: 12/07/17 17:57 Dose: 8 units Insulin Detemir (Levemir Vial) 10 units SQ HS [facility] Isosorbide Dinitrate (Isordil -) 20 mg PO TIDISORDIL [facility] Last Admin: 12/07/17 17:57 Dose: 20 mg Metoprolol Succinate (Toprol Xl -) 50 mg PO DAILY [facility] Ondansetron HCl (Zofran Injection) 4 mg IVPUSH Q6H PRN PRN Reason: NAUSEA AND/OR VOMITING Sodium Bicarbonate (Sodium Bicarbonate -) 650 mg PO BID [facility] Tamsulosin HCl (Flomax -) 0.4 mg PO HS [facility] Torsemide (Demadex -) 80 mg PO DAILY [facility] 67 year old gentleman with PMhx of CKD Stage 3, CHF, AFib, Hypertension who presented with weakness and sob and found to have CHF exacerbation with KELLI #Progressive CKD likely due to diabetic nephropathy now ESRD requiring dialysis #Nephrotic Proteinuira secondary to diabetic nephropathy (serologic work up is negative) #SOB secondary to CHF exacerbation refractory to diuretics #Anemia s/p permacath placement today no acute need for dialysis today, next treatment planned for tomorrow morning Weights considerably improved despite persistent congestion on CXR will UF as tolerated with HD tomorrow outpatient dialysis placement continue oral toresemide d/c sodium bicarb d/c planning as per primary Beau Iraheta DO
[2017-12-07] MEDS ORDERED: ACETAMINOPHEN 325 MG TABLET (FP) PO ONE (19:45)
[2017-12-07] MEDS ORDERED: INSULIN SLIDING SCALE (NOVOLOG) 1 VIAL SQ SCH (22:00)
[2017-12-07] MEDS ORDERED: SODIUM BICARBONATE 650 MG TABLET PO SCH (22:00)
[2017-12-07] MEDS ORDERED: INSULIN (LEVEMIR) 100 UNITS/ML UNITS SQ SCH (22:00)
[2017-12-07] MEDS ORDERED: TAMSULOSIN HCL 0.4 MG CAP.ER.24H (FP) PO SCH (22:00)
[2017-12-07] MEDS ORDERED: ATORVASTATIN CA 40 MG TABLET (FP) PO SCH (22:00)
[2017-12-08] MEDS: INSULIN SLIDING SCALE (NOVOLOG) 1 VIAL SQ SCH ×2 (06:21→11:56)
[2017-12-08] MEDS: hydrALAZINE HCL 50 MG TABLET (FP) PO SCH (06:22)
[2017-12-08] MEDS: CALCIUM ACETATE 667 MG CAPSULE (FP) PO SCH ×2 (08:03→13:04)
--- NOTE | 2017-12-08 09:24 | PN ---
Progress Note (short form) - Note Progress Note: POD #1 S/p permacath insertion (right chest wall) Alert. Doing well. Resting comfortably without complaint. His shiley cath was removed yesterday. Problem List - Problems (1) Acute on chronic renal failure Assessment/Plan: Per Dr. Iraheta's note, they plan of taking patient for HD today and use PC. No further surgical intervention. Cont medical management On behalf of Dr. Canchola, thank you for the opportunity to participate in your patient's care. Code(s): N17.9 - ACUTE KIDNEY FAILURE, UNSPECIFIED; N18.9 - CHRONIC KIDNEY DISEASE, UNSPECIFIED Qualifiers: Acute renal failure type: unspecified Chronic kidney disease stage: unspecified stage Qualified Code(s): N17.9 - Acute kidney failure, unspecified ; N18.9 - Chronic kidney disease, unspecified; N18.9 - Chronic kidney disease, unspecified
--- NOTE | 2017-12-08 09:44 | PATH ---
Surgical Pathology Report Patient Name: KANIKA BEAVERS Med. Rec. #: [id number] /Age/Gender: 1950 (Age: 67) / M Account: [id number] Location: 4 W TELEMETRY U Taken: 12/07/2017 Received: 12/07/2017 Reported: 12/08/2017 Physicians: Conor Canchola Specimen(s) Received SHILEY CATHETER Clinical History Acute renal failure Final Diagnosis SHILEY CATHETER, REMOVAL: CATHETER, MACROSCOPIC DIAGNOSIS. Electronically Signed Sujatha Sharma M.D. Gross Description Received fresh labeled "removed Shiley catheter," is a 33 cm in length double lumen catheter which is partially wrapped in gauze. No soft tissue is present. No sections are submitted, gross only. DL/12/07/201712/07/2017
[2017-12-08] MEDS ORDERED: TORSEMIDE 20 MG TABLET (FP) PO SCH (10:00)
[2017-12-08] MEDS ORDERED: CLOPIDOGREL BISULFATE 75 MG TABLET (FP) PO SCH (10:00)
[2017-12-08] MEDS ORDERED: traMADol HCL 50 MG TABLET PO PRN (10:54)
--- NOTE | 2017-12-08 11:24 | PN ---
Progress Note (short form) - Note Progress Note: Chief Complaint: sob History of Present Illness: no cp, palpitations, syncope sob ex cigs Current Medications: Current Medications Generic Name Dose Route Start Last Admin Trade Name Freq PRN Reason Stop Dose Admin Atorvastatin Calcium 40 mg 12/07/17 22:00 12/07/17 21:35 Lipitor - PO 40 mg HS [facility] Administration Calcium Acetate 667 mg 12/07/17 12:00 12/07/17 17:57 Phoslo - PO 667 mg TIDCM [facility] Administration Clopidogrel Bisulfate 75 mg 12/08/17 10:00 Plavix - PO DAILY [facility] Epoetin Romeo 10,000 unit 12/08/17 06:00 Epogen - IVPUSH 12/08/17 06:01 ONCE ONE Fentanyl 50 mcg 12/07/17 11:36 Sublimaze Injection - IVPUSH [id number] PRN PAIN-PACU ORDER X 4 DOSES ONLY Heparin Sodium (Porcine) 1,000 unit 12/08/17 06:00 Heparin - IVPUSH 12/08/17 06:01 ONCE ONE Hydralazine HCl 50 mg 12/07/17 14:00 12/08/17 06:22 Apresoline - PO 50 mg TID [facility] Administration Sodium Chloride 250 mls @ 3,000 mls/hr 12/07/17 19:07 Normal Saline - IV 12/08/17 19:07 PRN PRN Hypotension during Dialysis Iron Sucrose 100 mg/ Sodium 100 mls @ 200 mls/hr 12/08/17 06:00 Chloride IVPB 12/08/17 06:29 ONCE ONE Insulin Aspart 1 vial 12/07/17 22:00 12/07/17 21:37 Novolog Vial Sliding Scale - SQ 2 units HS [facility] Administration Protocol Insulin Aspart 1 vial 12/07/17 16:30 12/08/17 06:21 Novolog Vial Sliding Scale - SQ Not Given [facility]IDAC [facility] Protocol Insulin Detemir 10 units 12/07/17 22:00 12/07/17 21:36 Levemir Vial SQ 10 units HS [facility] Administration Isosorbide Dinitrate 20 mg 12/07/17 13:00 12/07/17 17:57 Isordil - PO 20 mg TIDISORDIL [facility] Administration Metoprolol Succinate 50 mg 12/07/17 23:45 12/08/17 00:43 Toprol Xl - PO 50 mg BID [facility] Administration Ondansetron HCl 4 mg 12/07/17 11:36 Zofran Injection IVPUSH Q6H PRN NAUSEA AND/OR VOMITING Tamsulosin HCl 0.4 mg 12/07/17 22:00 12/07/17 21:35 Flomax - PO 0.4 mg HS [facility] Administration Torsemide 80 mg 12/08/17 10:00 Demadex - PO DAILY [facility] Tramadol HCl 50 mg 12/08/17 10:54 Ultram - PO Q12H PRN PAIN LEVEL 7 - 10 - Objective Vital Signs: Vital Signs Period Temp Pulse Resp BP Sys/Lauren Pulse Ox Last 24 Hr 98.3 F-99.5 F 69-72 16-20 115-150/46-82 95-100 Constitutional: Yes: No Distress, Calm Eyes: No: Sclera Icterus HENT: No: Nasal Congestion Cardiovascular: Yes: Regular Rate and Rhythm, JVD elevated, S1, S2,. No: Gallop , Murmur Respiratory: Yes: diminshed bases No: Accessory Muscle Use, Rales, Wheezes Gastrointestinal: Yes: Normal Bowel Sounds, Soft. No: Tenderness Extremities: No: Cold Edema: no le edema bl Integumentary: No: Jaundice Neurological: Yes: Alert, Oriented (x3) Psychiatric: No: Agitated Labs: ecg vpaced, underlying appears aflutter echo 10/2017: moderate concentric lvh. 1+ lve. mod-sev decreased LV sys fn, global. nl RV size. mod decreased RV sys fn. mod mitra. mod-sev mac. mod mr. mod-sev tr. rvsp > 60. trivial effusion. echo 11/2016: low nl lvef, mild lvh, nl rv, mitra, mod mr/tr, mod phtn echo 02/2015: mild lv dil, nl lvef, basal post-lat HK, nl rv size/fcn, severe biatrial dil, sev mr, sev tr, sev phtn, mod pr echo 11/2014: nl lv/rv, mod-sev mr, sev tr, sev phtn renal u/s: chronic medical renal disease. trace free fluid in upper abdomen. bilateral pleural effusions. see emr for detailed findings. mibi 11/2016: no ischemia tele: v-paced CXR: worse chf a/p: 67 m hx cad s/p nstemi/pci (11/2014 pt had chf with +trops so sent for cath [facility] and had rota and GIOVANNI to pLAD, residual dLCx and ramus 50-60% both), dchf, htn, hld, dm, ckd, afib on coumadin, cva, ppm (biotronik 05/2012), remote AAA repair, pad s/p left fem stent 2015 and left toe amp here with sob. acute systolic chf/new systolic cardiomyopathy: - echo here shows new systolic cardiomyopathy. will need to consider stress vs. cath once euvolemic (inpatient vs. 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 - ? etiology: r/o multivessel CAD as above. no tachyarrhythmia burden here. ? RV apical pacing cardiomyopathy--would have low threshold to consider [employer] upgrade. defer to dr liriano (outpt cardio) once HF is better optimized. -has been receiving doses of lasix 80 iv qd to bid here, with progressively worsening renal fxn, no improvement in radiographic findings. wt currently unchanged vs initial wt here (162). ? dry wt. office dry wt 09/07 visit 154 lbs -ineffective diuresis here despite milrinone, lasix with metolazone. -now started HD for ESRD with refractory fluid overload, per renal team recs -po torsemide per renal, fluid mgmt/UF per renal -12/04: wt declining. no sob, remains with marked JVD. rpt cxr -has been on milrinone for many days now. he was never hypotensive or with severe low-output sx's. given potential for milrinone toxic levels to accumulate in ESRD, will stop milrinone and observe volume status response to HD /UF -continue metoprolol. cont uptitration of hydral, nitrates - 12/05-: milrinone now off. sob improving with HD. con't hd for vol removal per renal. - 12/07: s/p permacath placement for hd. cxr still with persistent congestive changes/effusions. con't volume removal per renal. Possible persistent ectopy on tele, will uptitrate metoprolol to 50 bid. -12/08: cont hd for vol removal, cont torsemide as well kelli on ckd: -as above VTach: - episode of NSVT x7b on tele while on milrinone. No sig recurrence off milrinone. -K and Mg optimization (usual aggressive targets) -observe tele -cont BB as doing, uptitration 12/07. cad/pci: -stable, no cp/angina/acs -preserved lvef echo 2017 and no ischemia on 2017 mibi, but with known cad/ residual disease now with new cardiomypathy. ischemic eval as mentioned above. -cont home bb, statin, plavix htn: -cont bb, hydral hld: -cont statin afib,aflutter,atach: -rate controlled as pt has complete heart block with ppm -has hx of cva and was on AC and dapt previously before a prior GIB, and aortoenteric fistula. was followed by vascular at [facility], now by Dr. Gan. DAPT was deemed safe to resume in 2015 after LE stent. For now, cont plavix monotherapy. defer to outpatient cardiology ppm (biotronik for CHB): -Normal fcn on recent office check, next routine check planned 11/2017 remote aaa repair/pad s/p multiple interventions and toe amputations : -stable, continue bp control. plavix, statin anemia: -s/p prbcs
--- NOTE | 2017-12-08 12:09 | DS ---
Physical Examination Vital Signs: Vital Signs Temperature 36.8 C 12/08/17 10:00 Pulse Rate 77 12/08/17 11:30 Respiratory Rate 18 12/08/17 10:00 Blood Pressure 115/56 12/08/17 10:00 O2 Sat by Pulse Oximetry (%) 90 L 12/08/17 11:30 Constitutional: Yes: Well Nourished, No Distress, Calm Cardiovascular: Yes: Regular Rate and Rhythm. No: Gallop, Murmur, Rub Respiratory: Yes: Regular, CTA Bilaterally. No: Rales, Rhonchi, Wheezes Gastrointestinal: Yes: Normal Bowel Sounds, Soft. No: Distention, Tenderness Extremities: Yes: WNL Edema: No Labs: CBC, BMP 12/07/17 06:18 12/07/17 06:18 Discharge Summary Reason For Visit: ACUTE KIDNEY INJURY/ACUTE CONGESTIVE HEART FAILURE Current Active Problems AAA (abdominal aortic aneurysm) (Acute) Acute CHF (Acute) Acute on chronic renal failure (Acute) Hypoxia (Acute) Pacemaker (Acute) Pulmonary hypertension (Acute) Hospital Course: (1) Acute CHF Code(s): I50.9 - HEART FAILURE, UNSPECIFIED Qualifiers: Heart failure type: combined systolic and diastolic Qualified Code(s): I50.41 - Acute combined systolic (congestive) and diastolic (congestive) heart failure (2) Acute on chronic renal failure Code(s): N17.9 - ACUTE KIDNEY FAILURE, UNSPECIFIED; N18.9 - CHRONIC KIDNEY DISEASE, UNSPECIFIED Qualifiers: Acute renal failure type: unspecified Chronic kidney disease stage: unspecified stage Qualified Code(s): N17.9 - Acute kidney failure, unspecified ; N18.9 - Chronic kidney disease, unspecified; N18.9 - Chronic kidney disease, unspecified (3) Hypoxia Code(s): R09.02 - HYPOXEMIA (4) Atrial fibrillation Code(s): I48.91 - UNSPECIFIED ATRIAL FIBRILLATION Qualifiers: Atrial fibrillation type: paroxysmal Qualified Code(s): I48.0 - Paroxysmal atrial fibrillation (5) Diabetes Code(s): E11.9 - TYPE 2 DIABETES MELLITUS WITHOUT COMPLICATIONS Qualifiers: Diabetes mellitus type: type 2 Diabetes mellitus complication status: with circulatory complication (6) Hypertension Code(s): I10 - ESSENTIAL (PRIMARY) HYPERTENSION Qualifiers: Hypertension type: essential hypertension Qualified Code(s): I10 - Essential (primary) hypertension Mr Howard is a 67 year old male who comes in with CHF exacerbation. He was admitted to the hospital and diuresis was attempted but unsuccessful. He was noted to have KELLI on CKD which became ESRD and required HD for both filtration and fluid removal. His CHF was controlled with HD. Also was found to have a UTI and treated with a full course of antibiotics. He is currently stable and safe for discharge. He can continue HD on Monday as an outpatient. 32 minutes spent in preparation of this discharge Condition: Stable - Instructions Diet, Activity, Other Instructions: diabetic, renal diet. Resume previous activity. Referrals: Beau Iraheta MD [Staff Physician] - Moises Thomas MD [Staff Physician] - Zion Ruth MD [Primary Care Provider] - 1 Week Thierno Alvarez MD, MD [Staff Physician] - Disposition: HOME - Home Medications Comprehensive Discharge Medication List: Ambulatory Orders Atorvastatin Ca [Lipitor] 40 mg PO DAILY 02/27/16 Glyburide 10 mg PO BID 02/27/16 Linagliptin [Tradjenta] 5 mg PO DAILY 02/27/16 Tamsulosin HCl 0.4 mg PO HS 02/27/16 Clopidogrel Bisulfate [Plavix -] 75 mg PO DAILY #30 tablet 03/24/16 Calcium Acetate [Phoslo -] 667 mg PO TIDCM #90 capsule 12/08/17 Metoprolol Succinate [Toprol XL -] 50 mg PO BID #60 tab.sr.24h 12/08/17 Torsemide [Demadex -] 80 mg PO DAILY #120 tablet 12/08/17 hydrALAZINE HCL [Apresoline -] 50 mg PO TID #90 tablet 12/08/17
--- NOTE | 2017-12-08 14:16 | PN ---
Progress Note (short form) - Note Progress Note: Anesthesia postop note 67 y/o M s/p MAC for permacath insertion POD#1, vss, aaox3, no complaints No anesthesia complications.
[2017-12-08] MEDS ORDERED: SODIUM CHLORIDE 250 ML IV PRN (14:34)
[2017-12-08] MEDS ORDERED: HEPARIN NA (PORCINE) 5,000 UNITS/ML 1ML VIAL IVPUSH ONE (14:45)
[2017-12-08] MEDS ORDERED: EPOETIN ALFA 10,000 UNIT/1 ML VIAL IVPUSH ONE (15:00)
[2017-12-08] MEDS ORDERED: IRON SUCROSE INJECTION 100 MG in SODIUM CHLORIDE 95 ML IVPB ONE (15:30)
[2017-12-08 15:48] LABS: HEMATOCRIT 26.5 % (35.4-49); HEMOGLOBIN 8.8 GM/dL (11.7-16.9); MCH 30.7 pg (25.7-33.7); MCHC 33.1 g/dl (32.0-35.9); MEAN CELL VOLUME 92.9 fl (80-96); MEAN PLT VOLUME 8.9 fl (7.5-11.1); PLATELET COUNT 135 K/MM3 (134-434); RBC 2.85 M/mm3 (4.00-5.60); RDW 19.6 % (11.9-15.9); WHITE BLOOD COUNT 5.8 K/mm3 (4.0-10.0)
--- NOTE | 2017-12-08 15:49 | PN ---
Progress Note, Physician History of Present Illness: patient with permacath now awaiting for dialysis - Current Medication List Current Medications: Active Medications Atorvastatin Calcium (Lipitor -) 40 mg PO HS [facility] Last Admin: 12/07/17 21:35 Dose: 40 mg Calcium Acetate (Phoslo -) 667 mg PO TIDCM [facility] Last Admin: 12/08/17 13:04 Dose: 667 mg Clopidogrel Bisulfate (Plavix -) 75 mg PO DAILY [facility] Fentanyl (Sublimaze Injection -) 50 mcg IVPUSH [id number] PRN PRN Reason: PAIN-PACU ORDER X 4 DOSES ONLY Hydralazine HCl (Apresoline -) 50 mg PO TID [facility] Last Admin: 12/08/17 06:22 Dose: 50 mg Iron Sucrose 100 mg/ Sodium (Chloride) 100 mls @ 200 mls/hr IVPB ONCE ONE Stop: 12/08/17 15:59 Insulin Aspart (Novolog Vial Sliding Scale -) 1 vial SQ [facility] PRN Reason: Protocol Last Admin: 12/07/17 21:37 Dose: 2 units Insulin Aspart (Novolog Vial Sliding Scale -) 1 vial SQ [facility]AC [facility] PRN Reason: Protocol Last Admin: 12/08/17 11:56 Dose: Not Given Insulin Detemir (Levemir Vial) 10 units SQ [facility] Last Admin: 12/07/17 21:36 Dose: 10 units Isosorbide Dinitrate (Isordil -) 20 mg PO TIDISORDIL [facility] Last Admin: 12/07/17 17:57 Dose: 20 mg Metoprolol Succinate (Toprol Xl -) 50 mg PO BID [facility] Last Admin: 12/08/17 00:43 Dose: 50 mg Ondansetron HCl (Zofran Injection) 4 mg IVPUSH Q6H PRN PRN Reason: NAUSEA AND/OR VOMITING Tamsulosin HCl (Flomax -) 0.4 mg PO [facility] Last Admin: 12/07/17 21:35 Dose: 0.4 mg Torsemide (Demadex -) 80 mg PO DAILY [facility] Tramadol HCl (Ultram -) 50 mg PO Q12H PRN PRN Reason: PAIN LEVEL 7 - 10 Last Admin: 12/08/17 11:51 Dose: 50 mg - Objective Vital Signs: Vital Signs Temperature 98.5 F 12/08/17 14:00 Pulse Rate 70 12/08/17 14:00 Respiratory Rate 12/08/17 14:00 Blood Pressure 130/50 12/08/17 14:00 O2 Sat by Pulse Oximetry (%) 90 L 12/08/17 11:30 Constitutional: Yes: No Distress, Calm Cardiovascular: Yes: S1, S2 Respiratory: Yes: Regular, CTA Bilaterally Gastrointestinal: Yes: Normal Bowel Sounds, Soft Musculoskeletal: Yes: WNL Extremities: Yes: WNL Wound/Incision: Yes: Dressing Dry and Intact, Reddened Neurological: Yes: Alert, Oriented Psychiatric: Yes: Alert, Oriented Labs: INR, PTT INR 0.99 (0.82-1.09) 11/16/17 16:00 Assessment/Plan Problem List - Problems (1) Acute CHF Code(s): I50.9 - HEART FAILURE, UNSPECIFIED Qualifiers: Heart failure type: diastolic Qualified Code(s): I50.31 - Acute diastolic ( congestive) heart failure (2) Acute on chronic renal failure Code(s): N17.9 - ACUTE KIDNEY FAILURE, UNSPECIFIED; N18.9 - CHRONIC KIDNEY DISEASE, UNSPECIFIED Qualifiers: Acute renal failure type: unspecified Chronic kidney disease stage: unspecified stage Qualified Code(s): N17.9 - Acute kidney failure, unspecified ; N18.9 - Chronic kidney disease, unspecified; N18.9 - Chronic kidney disease, unspecified (3) Hypoxia Code(s): R09.02 - HYPOXEMIA (4) Atrial fibrillation Code(s): I48.91 - UNSPECIFIED ATRIAL FIBRILLATION Qualifiers: Atrial fibrillation type: paroxysmal Qualified Code(s): I48.0 - Paroxysmal atrial fibrillation (5) Diabetes Code(s): E11.9 - TYPE 2 DIABETES MELLITUS WITHOUT COMPLICATIONS Qualifiers: Diabetes mellitus type: type 2 Diabetes mellitus complication status: with circulatory complication (6) Hypertension Code(s): I10 - ESSENTIAL (PRIMARY) HYPERTENSION Qualifiers: Hypertension type: essential hypertension Qualified Code(s): I10 - Essential (primary) hypertension (7) UTI complicated plan stable off of abx continue to monitor permacath await for dialysis rest as per the team
[2017-12-08 16:08] LABS: ANION GAP 4 (8-16); BLOOD UREA NITROGEN 55 mg/dL (7-18); CALCIUM 7.2 mg/dL (8.5-10.1); CHLORIDE 105 mmol/L (98-107); CO2 33 mmol/L (21-32); CREATININE 3.6 mg/dL (0.7-1.3); GLUCOSE,RANDOM 131 mg/dL (74-106); PHOSPHOROUS 3.4 mg/dL (2.5-4.9); POTASSIUM 3.8 mmol/L (3.5-5.1); SODIUM 142 mmol/L (136-145)
--- NOTE | 2017-12-08 16:57 | PN ---
Progress Note (short form) - Note Progress Note: Renal follow up for KELLI on CKD Pt seen and examined at the bedside feels better denies sob for d.c today Vital Signs Temperature 98.5 F 12/08/17 14:00 Pulse Rate 70 12/08/17 16:00 Respiratory Rate 18 12/08/17 16:00 Blood Pressure 134/61 12/08/17 16:00 O2 Sat by Pulse Oximetry (%) 90 L 12/08/17 11:30 Intake & Output 12/05/17 12/06/17 12/07/17 12/08/17 23:59 23:59 23:59 23:59 Intake Total 250 810 900 250 Output Total 114 534 8813 900 Balance -150 260 -160 -650 Weight 70.987 kg 70.931 kg 68.606 kg 69.967 kg NAD, awake and alert RRR No rales, wheeze, crackles NO LE edema CBC, BMP 12/08/17 15:00 Current Medications Atorvastatin Calcium (Lipitor -) 40 mg PO HS [facility] Last Admin: 12/07/17 21:35 Dose: 40 mg Calcium Acetate (Phoslo -) 667 mg PO TIDCM [facility] Last Admin: 12/08/17 13:04 Dose: 667 mg Clopidogrel Bisulfate (Plavix -) 75 mg PO DAILY [facility] Fentanyl (Sublimaze Injection -) 50 mcg IVPUSH [id number] PRN PRN Reason: PAIN-PACU ORDER X 4 DOSES ONLY Hydralazine HCl (Apresoline -) 50 mg PO TID [facility] Last Admin: 12/08/17 06:22 Dose: 50 mg Insulin Aspart (Novolog Vial Sliding Scale -) 1 vial SQ HS [facility] PRN Reason: Protocol Last Admin: 12/07/17 21:37 Dose: 2 units Insulin Aspart (Novolog Vial Sliding Scale -) 1 vial SQ TIDAC [facility] PRN Reason: Protocol Last Admin: 12/08/17 11:56 Dose: Not Given Insulin Detemir (Levemir Vial) 10 units SQ HS [facility] Last Admin: 12/07/17 21:36 Dose: 10 units Isosorbide Dinitrate (Isordil -) 20 mg PO TIDISORDIL [facility] Last Admin: 12/07/17 17:57 Dose: 20 mg Metoprolol Succinate (Toprol Xl -) 50 mg PO BID [facility] Last Admin: 12/08/17 00:43 Dose: 50 mg Ondansetron HCl (Zofran Injection) 4 mg IVPUSH Q6H PRN PRN Reason: NAUSEA AND/OR VOMITING Tamsulosin HCl (Flomax -) 0.4 mg PO HS [facility] Last Admin: 12/07/17 21:35 Dose: 0.4 mg Torsemide (Demadex -) 80 mg PO DAILY [facility] Tramadol HCl (Ultram -) 50 mg PO Q12H PRN PRN Reason: PAIN LEVEL 7 - 10 Last Admin: 12/08/17 11:51 Dose: 50 mg 67 year old gentleman with PMhx of CKD Stage 3, CHF, AFib, Hypertension who presented with weakness and sob and found to have CHF exacerbation with KELLI #Progressive CKD likely due to diabetic nephropathy now ESRD requiring dialysis #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
[2017-12-08 18:38] VITALS: PULSE 70
[2017-12-08 20:37] VITALS: BP 151/72; TEMP 99
== END 2017-12-08 20:56 | disposition home or self-care (01) | DRG 291 ==
LOC: JER 15:21 → JERBED 18:48 → J4W 11-17 11:38
PROVIDERS: ADMIT Internal Medicine; ATTEND Internal Medicine
PROC: 06HM33Z Insertion of Infusion Device into Right Femoral Vein, Percutaneous Approach (ICD-10-PCS; principal; 2017-12-01)
PROC: 5A1D70Z Performance of Urinary Filtration, Intermittent, Less than 6 Hours Per Day (ICD-10-PCS; 2017-12-01)
PROC: 05HM33Z Insertion of Infusion Device into Right Internal Jugular Vein, Percutaneous Approach (ICD-10-PCS; 2017-12-07)
PROC: B513ZZA Fluoroscopy of Right Jugular Veins, Guidance (ICD-10-PCS; 2017-12-07)
PROC: 06PYX3Z Removal of Infusion Device from Lower Vein, External Approach (ICD-10-PCS; 2017-12-07)
DX: I13.0 Hypertensive heart and chronic kidney disease with heart failure and stage 1 through stage 4 chronic kidney disease, or unspecified chronic kidney disease (principal); I50.41 Acute combined systolic (congestive) and diastolic (congestive) heart failure; J18.9 Pneumonia, unspecified organism; N18.6 End stage renal disease; N17.9 Acute kidney failure, unspecified; I47.2 Ventricular tachycardia; I44.2 Atrioventricular block, complete; E87.4 Mixed disorder of acid-base balance; E87.2 Acidosis; E87.0 Hyperosmolality and hypernatremia; I48.92 Unspecified atrial flutter; N39.0 Urinary tract infection, site not specified; J98.11 Atelectasis; E11.22 Type 2 diabetes mellitus with diabetic chronic kidney disease; E11.21 Type 2 diabetes mellitus with diabetic nephropathy; I27.20 Pulmonary hypertension, unspecified; E11.65 Type 2 diabetes mellitus with hyperglycemia; N28.1 Cyst of kidney, acquired; E87.5 Hyperkalemia; N18.3 Chronic kidney disease, stage 3 (moderate); I48.91 Unspecified atrial fibrillation; I42.8 Other cardiomyopathies; Z79.01 Long term (current) use of anticoagulants; I73.9 Peripheral vascular disease, unspecified; D63.1 Anemia in chronic kidney disease; E87.6 Hypokalemia; Z79.84 Long term (current) use of oral hypoglycemic drugs; I34.0 Nonrheumatic mitral (valve) insufficiency; Z95.5 Presence of coronary angioplasty implant and graft; E78.5 Hyperlipidemia, unspecified; R09.02 Hypoxemia; I25.2 Old myocardial infarction; Z86.73 Personal history of transient ischemic attack (TIA), and cerebral infarction without residual deficits; Z90.49 Acquired absence of other specified parts of digestive tract; F17.210 Nicotine dependence, cigarettes, uncomplicated; I25.10 Atherosclerotic heart disease of native coronary artery without angina pectoris; F12.10 Cannabis abuse, uncomplicated; Z89.422 Acquired absence of other left toe(s); B96.89 Other specified bacterial agents as the cause of diseases classified elsewhere
CPT/HCPCS: 36415; 36430; 36600; 71045-TC-FY; 71046-TC-FY; 71250-TC; 76705-TC; 76775-TC; 80048; 80053; 80074; 80076; 81003; 81015; 82550; 82570; 82728; 82803; 82962; 83036; 83540; 83550; 83605; 83735; 83880; 84100; 84156; 84484; 84540; 85025; 85027; 85610; 86038; 86593; 86850; 86900; 86901; 86922; 87040; 87086; 87186; 87389; 93005; 93010; 93306-TC; 93970-TC; 93975; 94760; 94761; 97116-GP; 97161-GP; 99285-25; J0885; J1644; J1756; J7030; J7620; P9058

== ENCOUNTER 2018-03-05 22:01 | Inpatient (IN) | payer OTHER, BC ==
[2018-03-05] MEDS ORDERED: SODIUM CHLORIDE 0.9% 1000 ML INFUS.BAG IV ONE (22:21)
[2018-03-05 22:41] LABS: BASO % 1.3 % (0-2.0); EOS % 1.8 % (0-4.5); HEMATOCRIT 36.9 % (35.4-49); HEMOGLOBIN 11.9 GM/dL (11.7-16.9); LYMPH % 9.9 % (8-40); MCH 29.9 pg (25.7-33.7); MCHC 32.2 g/dl (32.0-35.9); MEAN CELL VOLUME 92.9 fl (80-96); MEAN PLT VOLUME 9.5 fl (7.5-11.1); MONO % 8.1 % (3.8-10.2); NEUT % 78.9 % (42.8-82.8); PLATELET COUNT 191 K/MM3 (134-434); RBC 3.97 M/mm3 (4.00-5.60); RDW 15.1 % (11.9-15.9); WHITE BLOOD COUNT 6.6 K/mm3 (4.0-10.0)
--- NOTE | 2018-03-05 22:52 | PDOC ---
History of Present Illness - General Chief Complaint: Altered Mental Status Stated Complaint: HIGH BP Time Seen by Provider: 03/05/18 22:06 History Source: Patient Exam Limitations: No Limitations - History of Present Illness Initial Comments: 03/05/18 22:46 The patient is a 67M with a PMH of PVD, DM, afib, CKD, CHF, and HTN who presents to the ER via EMS for AMS. The patient states that he was eating and "the food must have been old" because he vomited. The is at bedside and states the patient was eating dinner when he abruptly stopped, had shaking of his hands, vomited, and was unable to take a breath. His then called EMS. He was disoriented after this event but had no bowel/bladder incontinence. He has no hx of seizures. He denies any CP, SOB, fever, chills, nausea, abdominal pain, numbness, tingling, and weakness. Past History - Past Medical History Allergies/Adverse Reactions: Allergies Allergy/AdvReac Type Severity Reaction Status Date / Time No Known Drug Allergies Allergy Verified 03/05/18 22:15 Home Medications: Ambulatory Orders Atorvastatin Ca [Lipitor] 40 mg PO DAILY 02/27/16 Glyburide 10 mg PO BID 02/27/16 Linagliptin [Tradjenta] 5 mg PO DAILY 02/27/16 Tamsulosin HCl 0.4 mg PO HS 02/27/16 Clopidogrel Bisulfate [Plavix -] 75 mg PO DAILY #30 tablet 03/24/16 Calcium Acetate [Phoslo -] 667 mg PO TIDCM #90 capsule 12/08/17 Metoprolol Succinate [Toprol XL -] 50 mg PO BID #60 tab.sr.24h 12/08/17 Torsemide [Demadex -] 80 mg PO DAILY #120 tablet 12/08/17 hydrALAZINE HCL [Apresoline -] 50 mg PO TID #90 tablet 12/08/17 Cardiac Disorders: Yes ([place] X2 2016, Stent, Pacemaker) CVA: Yes (MILD STROKE X2) COPD: No CHF: Yes Diabetes: Yes GI Disorders: Yes (Intestinal blockage) Disorders: No HTN: Yes Hypercholesterolemia: Yes - Surgical History Abdominal Surgery: Yes (1993 AORTIC ANEURYSM) Appendectomy: Yes Cardiac Surgery: Yes (aortic aneurism repair 95',PM,STENT X 1.) Orthopedic Surgery: Yes (Left 5th toe amputation) - Immunization History Immunization Up to Date: Yes - Suicide/Smoking/Psychosocial Hx Smoking Status: Yes Smoking History: Former smoker Have you smoked in the past 12 months: No Number of Cigarettes Smoked Daily: 10 If you are a former smoker, when did you quit?: 2MONTHS AGO Information on smoking cessation initiated: No 'Breaking Loose' booklet given: 03/21/16 Hx Alcohol Use: No Drug/Substance Use Hx: No Substance Use Type: None Hx Substance Use Treatment: No Review of Systems - Review of Systems Able to Perform ROS?: Yes Comments:: 03/05/18 22:52 GENERAL/CONSTITUTIONAL: No fever or chills. No weakness. HEAD, EYES, EARS, NOSE AND THROAT: No change in vision. No ear pain or discharge. No sore throat. CARDIOVASCULAR: No chest pain, palpitations, or lightheadedness. RESPIRATORY: No cough, wheezing, shortness of breath, or hemoptysis. GASTROINTESTINAL: Positive for vomiting. No nausea, diarrhea, constipation, or abdominal pain. GENITOURINARY: No dysuria, frequency, hematuria, or change in urination. MUSCULOSKELETAL: No joint or muscle swelling or pain. No neck or back pain. SKIN: No rash or lesions. NEUROLOGIC: Positive for possible LOC and previous CVA. No headache, numbness, tingling, weakness, or change in strength/sensation. ENDOCRINE: No increased thirst. No abnormal weight change. HEMATOLOGIC/LYMPHATIC: No anemia, easy bleeding, or history of blood clots. ALLERGIC/IMMUNOLOGIC: No hives or skin allergy. Is the patient limited Danish proficient: No *Physical Exam - Vital Signs Last Vital Signs Temp Pulse Resp BP Pulse Ox 96.8 F L 69 19 133/72 98 03/05/18 22:04 03/05/18 22:04 03/05/18 22:04 03/05/18 22:04 03/05/18 22:04 - Physical Exam Comments: 03/05/18 22:58 GENERAL: Well developed, well nourished. Awake and alert. No acute distress. HEENT: Normocephalic, atraumatic. Hearing grossly normal. Moist mucous membranes. PERRLA, EOMI. No conjunctival pallor. Sclera are non-icteric. Oropharynx is clear. NECK: Supple. Full ROM. No JVD. Carotid pulses 2+ and symmetric, without bruits. No thyromegaly. No lymphadenopathy. CARDIOVASCULAR: Regular rate and rhythm. No murmurs, rubs, or gallops. Distal pulses are 2+ and symmetric. PULMONARY: No evidence of respiratory distress. Decreased lung sounds Lungs clear to auscultation bilaterally. No wheezing, rales or rhonchi. ABDOMINAL: Soft. Non-tender. Non-distended. No rebound or guarding. GENITOURINARY: No CVA tenderness bilaterally. MUSCULOSKELETAL: Normal range of motion at all joints. No bony deformities or tenderness. EXTREMITIES: No cyanosis. No clubbing. No edema. No calf tenderness or swelling. SKIN: Warm and dry. Normal capillary refill. No rashes. No jaundice. NEUROLOGICAL: Alert, awake, appropriate. Cranial nerves 2-12 intact. Slight facial droop on R face, unchanged from previous per family. No deficits to light touch and temperature in face, upper extremities and lower extremities. 5/ 5 strength in deltoids, biceps, triceps, quadriceps, hamstrings, and gastrocnemius. Normal speech. PSYCHIATRIC: Cooperative. Good eye contact. Appropriate mood and affect. Heart Score/ECG Review #1 General ECG Interpretation: Sinus Rhythm, Normal Rate, Normal Intervals, No acute ischemic changes Compared to previous ECG there are: No significant change 03/05/18 23:12 Vent paced rhythm 75 IA 128 QRS 162 QTc 557 No STD Questionable CLAIRE in V4-V5, possibly 2/2 [facility] ED Treatment Course - LABORATORY CBC & Chemistry Diagram: 03/05/18 22:30 03/05/18 22:30 - ADDITIONAL ORDERS Additional order review: 03/05/18 22:30 RBC 3.97 L MCV 92.9 MCHC 32.2 RDW 15.1 D MPV 9.5 Neutrophils % 78.9 Lymphocytes % 9.9 Monocytes % 8.1 Eosinophils % 1.8 D Basophils % 1.3 - RADIOLOGY Radiology Studies Ordered: Category Date Time Status HEAD CT WITHOUT CONTRAST [CT] Stat CT Scan 03/05/18 22:31 Ordered CHEST X-RAY PORTABLE* [RAD] Stat Radiology 03/05/18 22:20 Ordered - Medications Given in the ED: ED Medications Discontinued Medications Generic Name Dose Route Start Last Admin Trade Name Freq PRN Reason Stop Dose Admin Sodium Chloride 1,000 ml 03/05/18 22:21 03/05/18 22:27 Normal Saline - IV 03/05/18 22:22 1,000 ml ONCE ONE Administration Medical Decision Making - Medical Decision Making 03/05/18 23:36 The patient is a 67M with an extensive PMH who presents to the ER with possible seizure like activity. He had 2 episodes in the ED, one witnessed by myself which correlates to a seizure as he was disoriented after and then returned to reorientation. CBC WNL. CMP does not reveal hyperkalemia. Nephrology aware. Neuro agrees with plan in ER plus admission. CTH negative. WIll update family and admit pt. 03/06/18 00:00 I have endorsed the pt to [facility] for admission. She has d/w ICU resident Dr. Guo for ICU admission. 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
[2018-03-05 23:03] LABS: ALBUMIN 2.7 g/dl (3.4-5.0); ANION GAP 11 (8-16); BILIRUBIN,TOTAL 0.5 mg/dL (0.2-1.0); BLOOD UREA NITROGEN 53 mg/dL (7-18); CALCIUM 8.3 mg/dL (8.5-10.1); CHLORIDE 96 mmol/L (98-107); CO2 22 mmol/L (21-32); CREATININE 3.3 mg/dL (0.7-1.3); POTASSIUM 4.1 mmol/L (3.5-5.1); SGOT/AST 8 U/L (15-37); SGPT/ALT 15 U/L (12-78); SODIUM 129 mmol/L (136-145); TOT PROT 6.1 g/dl (6.4-8.2)
[2018-03-05 23:04] LABS: ACETONE SERUM NEGATIVE (NEGATIVE)
[2018-03-05 23:05] LABS: ALK PHOS 157 U/L (45-117)
[2018-03-05 23:10] LABS: GLUCOSE,RANDOM 853 mg/dL (74-106)
[2018-03-05] MEDS ORDERED: levETIRAcetam 500 MG/5 ML INJECTION VIAL IVPB ONE ×2 (23:15→23:18)
[2018-03-05] MEDS ORDERED: LORazepam 2 MG/ML SDV VIAL ONE (23:19)
--- NOTE | 2018-03-05 23:41 | PDOC ---
Attending Attestation - HPI HPI: 03/05/18 23:42 The patient is a 67 year old male with past medical history of CKD, ESRD on dialysis (Monday, , and Monday) CHF, HTN, [place] x2 (2015)s/p stent placement, CVA, PVD, DM and AFib s/p pacemaker presents to the emergency department via EMS s/p witnessed seizure. 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 Patients last dialysis was 03/03/2018. Denies hx of seizures. Denies fevers or chills. Denies chest pain or shortness of breath. Denies diarrhea or constipation. Denies vertigo or dizziness. Allergies: NKDA Social history: History of cigarettes use. Denies the use of alcohol or recreational drugs. Surgical history: Pacemaker, Cardiac Stent, Aortic Aneurysm repair (), appendectomy, Partial colectomy w/ lysis of adhesions, and revascularization L. iliac, Femoral arteries, L. 5th toe amputation, Stents and Permacath (12/07/17) by Dr. Vijay Canchola. PCP: Dr. Di Ruth. Nephrology: Dr. Adelaide Iraheta. - Physicial Exam PE: 03/06/18 00:05 GENERAL: Well developed, well nourished. Awake and alert. No acute distress. HEENT: Normocephalic, atraumatic. PERRLA, EOMI. No conjunctival pallor. Sclera are non- icteric. Moist mucous membranes. Oropharynx is clear. NECK: Supple. Full ROM. No JVD. Carotid pulses 2+ and symmetric, without bruits. No thyromegaly. No lymphadenopathy. CARDIOVASCULAR: (+) dialysis access on the L. anterior chest. Regular rate and rhythm. No murmurs, rubs, or gallops. Distal pulses are 2+ and symmetric. PULMONARY: No evidence of respiratory distress. Lungs clear to auscultation bilaterally. No wheezing, rales or rhonchi. ABDOMINAL: Flat abdomen Soft. Non-tender. Non-distended. No rebound or guarding. No organomegaly. Normoactive bowel sounds. MUSCULOSKELETAL Normal range of motion at all joints. No bony deformities or tenderness. No CVA tenderness. EXTREMITIES: No pitting edema. No cyanosis. No clubbing. No edema. No calf tenderness. SKIN: Warm and dry. Normal capillary refill. No rashes. No jaundice. NEUROLOGICAL: Alert and conversant at arrival.No motor weakness at arrival. At the ED patient had 3x episodes of seizures, it started with a tremor to the R. hand that marched up to the shoulders with twitching, without response to verbal commands at the time. Partial complex seizures 3x episodes in total, 1 at home and 2 at ED. - Medical Decision Making 03/05/18 23:46 Documentation prepared by Bridgette Shields, acting as bio medical technician for Shruthi Cannon MD. <Bridgette Shields - Last Filed: 03/06/18 00:05> - Resident Resident Name: Cuong Morrell - ED Attending Attestation I have performed the following: I have examined & evaluated the patient, The case was reviewed & discussed with the resident, I agree w/resident's findings & plan, Exceptions are as noted - Medical Decision Making 03/06/18 00:27 ct scan head no acute intracranial pathology labs reviewed k=4.1 cbc baseline trop negative -Dr Gonzalez neuro agrees w loading w chula -Dr Iraheta aware of need for dialysis Monday imp partial complex seizures, ESRD,hyperglycemia( NEGATIVE ACETONE) admit <Shruthi Cannon - Last Filed: 03/06/18 00:33>
[2018-03-05] MEDS ORDERED: INSULIN REGULAR HUMAN 100 UNITS/ML *VIAL IVPUSH ONE (23:55)
[2018-03-06] MEDS ORDERED: INSULIN REGULAR HUMAN 100 UNITS/ML *VIAL ONE (00:10)
--- NOTE | 2018-03-06 00:52 | CONSULT ---
Consultation: REQUESTING PROVIDER: CONSULT REQUEST: We have been asked to medically evaluate this patient for ( intensive care). HISTORY OF PRESENT ILLNESS: history obtained from ED notes Patient is poor historian The patient is a 67 year old male with past medical history of CKD, ESRD on dialysis (Monday, , and Monday) CHF, HTN, DC x2 (2015)s/p stent placement, CVA, PVD, DM and AFib s/p pacemaker presents to the emergency department via EMS s/p witnessed seizure. 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 Patients last dialysis was 03/03/2018. Denies hx of seizures. Denies fevers or chills. Denies chest pain or shortness of breath. Denies diarrhea or constipation. Denies vertigo or dizziness. Patient also had seizure in ER witnessed by Er resident. Found to hyperglycemia. Got loading dose of keppra in er. Got 10 Iv insulin push. Allergies: NKDA Social history: History of cigarettes use. Denies the use of alcohol or recreational drugs. Surgical history: Pacemaker, Cardiac Stent, Aortic Aneurysm repair (94), appendectomy, Partial colectomy w/ lysis of adhesions, and revascularization L. iliac, Femoral arteries, L. 5th toe amputation, Stents and Permacath (12/07/17) by Dr. Vijay Canchola. PCP: Dr. Di Ruth. Nephrology: Dr. Adelaide Iraheta. PHYSICAL EXAMINATION Vital Signs - 24 hr 03/05/18 22:04 Temperature 96.8 F L Pulse Rate 69 Respiratory 19 Rate Blood Pressure 133/72 O2 Sat by Pulse 98 Oximetry (%) GENERAL: Awake and alert. No acute distress. . CARDIOVASCULAR: Regular rate and rhythm. No murmurs, rubs, or gallops. PULMONARY: No evidence of respiratory distress. Decreased lung sounds Lungs clear to auscultation bilaterally. No wheezing, rales or rhonchi. ABDOMINAL: Soft. Non-tender. Non-distended. No rebound or guarding. MUSCULOSKELETAL: Normal range of motion at all joints. No bony deformities or tenderness. EXTREMITIES: No cyanosis. No clubbing. No edema. No calf tenderness or swelling. SKIN: Warm and dry. NEUROLOGICAL: Alert, awake, appropriate. Cranial nerves 2-12 intact. PSYCHIATRIC: Cooperative. Laboratory Results - last 24 hr 03/05/18 03/05/18 22:30 22:30 WBC 6.6 RBC 3.97 L Hgb 11.9 Hct 36.9 D MCV 92.9 MCH 29.9 MCHC 32.2 RDW 15.1 D Plt Count 191 D MPV 9.5 Absolute Neuts (auto) 5.2 Neutrophils % 78.9 Lymphocytes % 9.9 Monocytes % 8.1 Eosinophils % 1.8 D Basophils % 1.3 Nucleated RBC % 0 Sodium 129 L Potassium 4.1 Chloride 96 L Carbon Dioxide 22 D Anion Gap 11 BUN 53 H Creatinine 3.3 H Creat Clearance w eGFR 18.68 Random Glucose 853 H* D Calcium 8.3 L Total Bilirubin 0.5 AST 8 L D ALT 15 D Alkaline Phosphatase 157 H Creatine Kinase 50 Troponin I 0.13 H D Total Protein 6.1 L Albumin 2.7 L Acetone, Qual Negative ASSESSMENT/PLAN: Hyperglycemia new seizure episode, likely due to hyperglycemia. pseudohyponatremia troponemia likely because of decrease clearance. H/o CKD, ESRD on dialysis (Monday, , and Monday) h/o CHF, h/o HTN, h/o DC x2 (2015)s/p stent placement, h/o CVA, PVD, h/o DM h/o AFib s/p pacemaker Plan Got IV keppra 1gm Ativan prn for seizure neurology consult. fall risk precaution aspiration precaution. seizure precaution. monitor electrolyte monitor blood glucose q1h, Monitor BMP q2-3h, IV insulin. continuw home meds for htn. Get UA Ct head no acute pathology. CXR left side effusion nephrology and neurology consult. Dispo: We will continue to follow the patient. Thank you for this consultative opportunity.
--- NOTE | 2018-03-06 01:00 | HP ---
CHIEF COMPLAINT: seizure PCP: Ruth HISTORY OF PRESENT ILLNESS: This is a 67 year old male with a significant past medical history of DM, ESRD, [place], CHF, CVA, afib who presented to the ED after seizure like activity at home. The reported to the ED that while patient was eating dinner he abruptly stopped, had shaking of his hands, vomited, and was unable to take a breath. She called 911 and the patient was brought here. He had 2 further shaking episodes in the ED, one witnessed by ED resident who describes shaking of hands , grimacing/torsion of facial features followed by episode of disorientation/ confusion. Pt recalls none of this at time of exam and does not know why he is here. ER course was notable for: (1) Glucose 853 (2) CT head no acute pathology (3) Sodium 129, corrected 141 Recent Travel: family denies PAST MEDICAL HISTORY: HTN, CHF, [place], afib, CVA, DM, ESRD (dialysis T,,), PVD PAST SURGICAL HISTORY: cardiac stents PPM AAA repair 1994 appendectomy L 5th toe (transmet?) amputation Social History: Smokin.5ppd Alcohol: previous, none currently Drugs: pt/family deny Family History: mother age 83, kidney disease father in his 50s, DM sister alive and well Allergies No Known Drug Allergies Allergy (Verified 03/05/18 22:15) HOME MEDICATIONS: 3 Medication Instructions Recorded Atorvastatin Ca [Lipitor] 40 mg PO DAILY 02/27/16 Glyburide 10 mg PO BID 02/27/16 Clopidogrel Bisulfate [Plavix -] 75 mg PO DAILY #30 tablet 03/24/16 Calcium Acetate [Phoslo -] 667 mg PO TIDCM #90 capsule 12/08/17 Metoprolol Succinate [Toprol XL -] 50 mg PO BID #60 tab.sr.24h 12/08/17 hydrALAZINE HCL [Apresoline -] 50 mg PO TID #90 tablet 12/08/17 REVIEW OF SYSTEMS CONSTITUTIONAL: Absent: fever, chills, diaphoresis, generalized weakness, malaise, loss of appetite, weight change HEENT: Absent: rhinorrhea, nasal congestion, throat pain, throat swelling, difficulty swallowing, mouth swelling, ear pain, eye pain, visual changes CARDIOVASCULAR: Absent: chest pain, syncope, palpitations, irregular heart rate, lightheadedness , peripheral edema RESPIRATORY: Absent: cough, shortness of breath, dyspnea with exertion, orthopnea, wheezing, stridor, hemoptysis GASTROINTESTINAL: Absent: abdominal pain, abdominal distension, nausea, vomiting, diarrhea, constipation, melena, hematochezia GENITOURINARY: Absent: dysuria, frequency, urgency, hesitancy, hematuria, flank pain, genital pain MUSCULOSKELETAL: Absent: myalgia, arthralgia, joint swelling, back pain, neck pain SKIN: Absent: rash, itching, pallor HEMATOLOGIC/IMMUNOLOGIC: Absent: easy bleeding, easy bruising, lymphadenopathy, frequent infections ENDOCRINE: Absent: unexplained weight gain, unexplained weight loss, heat intolerance, cold intolerance NEUROLOGIC: Present: seizure, mental status changes Absent: headache, focal weakness or paresthesias, dizziness, unsteady gait, bladder or bowel incontinence PSYCHIATRIC: Absent: anxiety, depression, suicidal or homicidal ideation, hallucinations. PHYSICAL EXAMINATION Vital Signs - 24 hr 3 03/05/18 22:04 Temperature 96.8 F L Pulse Rate 69 Respiratory 19 Rate Blood Pressure 133/72 O2 Sat by Pulse 98 Oximetry (%) GENERAL: Awake, alert, and oriented to person and place. Knows month but not year. In no acute distress. HEAD: Normal with no signs of trauma. + temporal wasting EYES: Pupils equal, round and reactive to light, extraocular movements intact, sclera anicteric, conjunctiva clear. No lid lag. EARS, NOSE, THROAT: Ears normal, nares patent, oropharynx clear without exudates. Moist mucous membranes. NECK: Normal range of motion, supple without lymphadenopathy, JVD, or masses. LUNGS: No accessory muscle use. Poor inspiratory effort, Grossly CTA B/L HEART: Regular rate and rhythm, normal S1 and S2 without murmur, rub or gallop. ABDOMEN: Soft, nontender, not distended, normoactive bowel sounds, no guarding, no rebound, no masses. No hepatomegaly or splenomegaly. MUSCULOSKELETAL: Normal range of motion at all joints. No bony deformities or tenderness. No CVA tenderness. UPPER EXTREMITIES: 2+ pulses, warm, well-perfused. No cyanosis. No clubbing. No peripheral edema. LOWER EXTREMITIES: 2+ pulses, warm, well-perfused. No calf tenderness. No peripheral edema. NEUROLOGICAL: Cranial nerves II-XII intact. Normal speech. Normal gait. PSYCHIATRIC: Cooperative. Good eye contact. Appropriate mood and affect. SKIN: Warm, dry, normal turgor, no rashes or lesions noted, normal capillary refill. Laboratory Results - last 24 hr 3 03/05/18 03/05/18 22:30 22:30 WBC 6.6 RBC 3.97 L Hgb 11.9 Hct 36.9 D MCV 92.9 MCH 29.9 MCHC 32.2 RDW 15.1 D Plt Count 191 D MPV 9.5 Absolute Neuts (auto) 5.2 Neutrophils % 78.9 Lymphocytes % 9.9 Monocytes % 8.1 Eosinophils % 1.8 D Basophils % 1.3 Nucleated RBC % 0 Sodium 129 L Potassium 4.1 Chloride 96 L Carbon Dioxide 22 D Anion Gap 11 BUN 53 H Creatinine 3.3 H Creat Clearance w eGFR 18.68 Random Glucose 853 H* D Calcium 8.3 L Total Bilirubin 0.5 AST 8 L D ALT 15 D Alkaline Phosphatase 157 H Creatine Kinase 50 Troponin I 0.13 H D Total Protein 6.1 L Albumin 2.7 L Acetone, Qual Negative ECG ventricular paced rhythm vent rate 69, QTC [address] head Impression: No CT evidence of acute intracranial pathology. In comparison to a 2012 MRI study interval development of left cerebellar and left inferior temporal chronic infarcts is noted. As on the prior study a chronic left occipital cortical infarct is seen. Reported By: Andres Martins MD 03/05/18 8856 ASSESSMENT/PLAN: 67yM with PMH HTN, CHF, [place], afib, CVA, DM, ESRD (dialysis T,,), PVD presented with seizure activity. Seizure-new onset - ? due to hyperglycemia - neuro consulted by ED, recommended keppra 1000 x1 dose and they will see in am - ativan given in ED, will give if additional seizure activity Hyperglycemia - r/o HHS - insulin regular 10u x1 given, will repeat BMP 1 hour after - if glucose is still elevated, then consider starting insulin drip - defer further IVF as pt is on dialysis and makes little urine as per - hold home po hypoglycemic - recommend endo consult, defer to pcp Elevated troponin level - ? due to renal status vs true cardiac injury. pt denies any chest pain, SOB , palpitations - will trend, if trending up then cardiology consult HTN/CHF/CAD - cont home meds: hydralazine, toprol, diltiazem, plavix Afib - rate controlled, unclear why pt not on AC, pcp to follow ESRD - nephrology consulted - dialysis as indicated - hold further IVF unless hemodynamically unstable - phoslo with meals once resumes diet DVT PPX - heparin 5000u bid FEN - hold IVF - BMP @ 130am - resume diet when glucose controlled Dispo: Pt currently requires high level care and monitoring in the ICU. Visit type - Emergency Visit Emergency Visit: Yes Care time: The patient presented to the Emergency Department on the above date and was hospitalized for further evaluation of their emergent condition. - New Patient This patient is new to me today: Yes Date on this admission: 03/06/18 - Critical Care Critical Care patient: No Hospitalist Screening - Colonoscopy Questionnaire Colonoscopy Questionnaire: Colonoscopy Questionnaire - Patient: 50 - 75 years old and never had a screening colonoscopy: No History of colon or rectal polyps, or CA: No History of IBD, Crohn's disease or UC: No History of abdominal radiation therapy as a child: No - Relative: 1 with colon or rectal CA, or polyps at age 60 or younger: No Colon or rectal CA diagnosed at age 45 or younger: No Multiple relatives with colon or rectal CA: No - Outcome: Screening Result: Negative Screen
[2018-03-06 02:07] LABS: VENOUS PH 7.24 (7.32-7.42)
[2018-03-06 02:08] LABS: VENOUS PC02 59.7 mmHg (38-52); VENOUS PO2 34.2 mmHg (28-48)
[2018-03-06 02:29] LABS: ANION GAP 9 (8-16); BLOOD UREA NITROGEN 51 mg/dL (7-18); CALCIUM 8.4 mg/dL (8.5-10.1); CHLORIDE 97 mmol/L (98-107); CO2 27 mmol/L (21-32); CREATININE 3.3 mg/dL (0.7-1.3); POTASSIUM 3.7 mmol/L (3.5-5.1); SODIUM 133 mmol/L (136-145)
[2018-03-06 02:40] LABS: GLUCOSE,RANDOM 583 mg/dL (74-106)
[2018-03-06] MEDS ORDERED: INSULIN REGULAR HUMAN 100 UNITS/ML *VIAL IVPUSH ONE (02:49)
[2018-03-06 04:41] LABS: ANION GAP 11 (8-16); BLOOD UREA NITROGEN 51 mg/dL (7-18); CALCIUM 8.4 mg/dL (8.5-10.1); CHLORIDE 98 mmol/L (98-107); CO2 24 mmol/L (21-32); CREATININE 3.3 mg/dL (0.7-1.3); POTASSIUM 3.6 mmol/L (3.5-5.1); SODIUM 133 mmol/L (136-145)
[2018-03-06 04:47] LABS: GLUCOSE,RANDOM 463 mg/dL (74-106)
[2018-03-06] MEDS ORDERED: INSULIN (NOVOLOG) ASPART 100 UNITS/ML 10ML VIAL SQ ONE (05:36)
[2018-03-06] MEDS: hydrALAZINE HCL 50 MG TABLET (FP) PO SCH ×3 (05:46→21:21)
[2018-03-06] MEDS ORDERED: hydrALAZINE HCL 50 MG TABLET (FP) PO SCH (06:00)
[2018-03-06] MEDS ORDERED: HEPARIN NA (PORCINE) 5,000 UNITS/ML 1ML VIAL SQ SCH ×2 (06:00→10:00)
[2018-03-06] MEDS: INSULIN SLIDING SCALE (NOVOLOG) 1 VIAL SQ SCH ×4 (06:45→21:22)
[2018-03-06] MEDS: CALCIUM ACETATE 667 MG CAPSULE (FP) PO SCH ×3 (07:50→17:51)
--- NOTE | 2018-03-06 08:56 | PN ---
Physical Exam: SUBJECTIVE: Patient seen and examined in the ICU. Responding to questioning with short one word answers. Seems possibly confused/disoriented. Understands that he is in the hospital due to hyperglycemia with seizures. When asked he says he has had seizures in the past and was placed on medicine but does not know which medication. Pt has no current complaints. OBJECTIVE: Vital Signs Period Temp Pulse Resp BP Sys/Lauren Pulse Ox Last 24 Hr 96.8 F-97.7 F 69-75 18-69 128-165/68-80 98-99 GENERAL: The patient is awake, alert, in no acute distress. HEAD: Normal with no signs of trauma. EYES: PERRL, sclera anicteric, conjunctiva clear. No ptosis. ENT: Ears normal, nares patent, oropharynx clear without exudates, moist mucous membranes, nicotine stained tongue. NECK: Trachea midline, full range of motion, supple. LUNGS: Breath sounds equal, clear to auscultation bilaterally, no wheezes, no crackles, no accessory muscle use. HEART: Irregularly irregular rythm, normal rate, S1, S2 without murmur, rub or gallop. ABDOMEN: Soft, nontender, nondistended, normoactive bowel sounds, no guarding EXTREMITIES: 2+ pulses, warm, well-perfused, no edema. NEUROLOGICAL: Cranial nerves II through XII grossly intact. Normal speech, gait not observed. SKIN: Warm, dry, normal turgor, no rashes or lesions noted Laboratory Results - last 24 hr 03/05/18 03/05/18 03/06/18 22:30 22:30 01:50 WBC 6.6 RBC 3.97 L Hgb 11.9 Hct 36.9 D MCV 92.9 MCH 29.9 MCHC 32.2 RDW 15.1 D Plt Count 191 D MPV 9.5 Absolute Neuts (auto) 5.2 Neutrophils % 78.9 Lymphocytes % 9.9 Monocytes % 8.1 Eosinophils % 1.8 D Basophils % 1.3 Nucleated RBC % 0 VBG pH POC VBG pCO2 POC VBG pO2 Mixed VBG HCO3 Sodium 129 L 133 L Potassium 4.1 3.7 Chloride 96 L 97 L Carbon Dioxide 22 D 27 D Anion Gap 11 9 BUN 53 H 51 H Creatinine 3.3 H 3.3 H Creat Clearance w eGFR 18.68 18.68 Random Glucose 853 H* D 583 H* D Calcium 8.3 L 8.4 L Total Bilirubin 0.5 AST 8 L D ALT 15 D Alkaline Phosphatase 157 H Creatine Kinase 50 Troponin I 0.13 H D Total Protein 6.1 L Albumin 2.7 L Acetone, Qual Negative 03/06/18 03/06/18 03/06/18 01:50 04:00 04:00 WBC RBC Hgb Hct MCV MCH MCHC RDW Plt Count MPV Absolute Neuts (auto) Neutrophils % Lymphocytes % Monocytes % Eosinophils % Basophils % Nucleated RBC % VBG pH 7.24 L* POC VBG pCO2 59.7 H POC VBG pO2 34.2 D Mixed VBG HCO3 24.7 Sodium 133 L Potassium 3.6 Chloride 98 Carbon Dioxide 24 Anion Gap 11 BUN 51 H Creatinine 3.3 H Creat Clearance w eGFR 18.68 Random Glucose 463 H* D Calcium 8.4 L Total Bilirubin AST ALT Alkaline Phosphatase Creatine Kinase 55 Troponin I 0.19 H D Total Protein Albumin Acetone, Qual Active Medications Generic Name Dose Route Start Last Admin Trade Name Freq PRN Reason Stop Dose Admin Atorvastatin Calcium 40 mg 03/06/18 10:00 Lipitor - PO DAILY [facility] Calcium Acetate 667 mg 03/06/18 08:00 03/06/18 07:50 Phoslo - PO 667 mg TIDCM [facility] Administration Chlorhexidine Gluconate 1 applic 03/06/18 22:00 Hibiclens For Decolonization - TP HS [facility] Clopidogrel Bisulfate 75 mg 03/06/18 10:00 Plavix - PO DAILY [facility] Diltiazem HCl 240 mg 03/06/18 10:00 Cardizem Cd - PO DAILY [facility] Heparin Sodium (Porcine) 5,000 unit 03/06/18 10:00 Heparin - SQ BID [facility] Hydralazine HCl 50 mg 03/06/18 06:00 03/06/18 05:46 Apresoline - PO 50 mg TID [facility] Administration Insulin Aspart 1 vial 03/06/18 07:00 03/06/18 06:45 Novolog Vial Sliding Scale - SQ Not Given ACHS [facility] Protocol Metoprolol Succinate 50 mg 03/06/18 10:00 Toprol Xl - PO BID [facility] Mupirocin 1 applic 03/06/18 10:00 Bactroban Ointment (For Decolonization) - NS 03/11/18 09:59 BID [facility] ASSESSMENT/PLAN: 67 yo male admitted to the ICU with hyperglycemia and multiple witnessed seizures. Neuro -Neurology consult placed, considering CVA acute/subacute multiple chronic infarcts seen on CT compared with scan from 2012 No neuro deficit on exam, unsure of mental status baseline On lipitor 40 mg Daily and plavix 75 mg Daily -Seizure witnessed at home and in the ED No seizures noted since ED Loading dose Keppra given, will continue as per neurology consultation 750mg PO BID for 10 days EEG outpatient MRI recommended, pt unable due to pacemaker Cardio -Extensive cardiac history (HTN, A-fib on plavix, [place] with stents) Cardiomegaly on CXR Pacemaker -HTN Hydralazine 50 mg PO TID Cardizem 240 mg PO Daily Respiratory -No known respiratory issues at this time GI -No known GI issues at this time Endocrine -DM on oral hypoglycemics at home Admitted with glucose of 853, down to 463 this morning Placed on insulin sliding scale for glycemic control, will adjust as needed Renal -ESRD on dialysis (T,Th, Sat) will need dialysis today Nephrology consult appreciated Troponins: 0.13 -> 0.19 -> ? most likely due to ESRD and need for dialysis, will continue to trend VTE Prophylaxis -On plavix 75 mg PO Daily -Heparin 5000 units SQ BID FEN -Fluids: none -Electrolytes: No electrolyte abnormalities currently, will follow BMP, Mg, and Phos, Chronically on phoslo from hx of Hyperphosphatemia -Nutrition: Diabetic diet Disposition Can be transferred to telemetry Problem List - Problems (1) Diabetes Code(s): E11.9 - TYPE 2 DIABETES MELLITUS WITHOUT COMPLICATIONS Qualifiers: Diabetes mellitus type: other specified (including REZA) Diabetes mellitus compound worker insulin use: without usp use Diabetes mellitus complication status: with hyperglycemia Qualified Code(s): E13.65 - Other specified diabetes mellitus with hyperglycemia (2) Hyperglycemia Code(s): R73.9 - HYPERGLYCEMIA, UNSPECIFIED (3) New onset seizure Code(s): R56.9 - UNSPECIFIED CONVULSIONS (4) Atrial fibrillation Code(s): I48.91 - UNSPECIFIED ATRIAL FIBRILLATION Qualifiers: Atrial fibrillation type: paroxysmal Qualified Code(s): I48.0 - Paroxysmal atrial fibrillation (5) Pacemaker Code(s): Z95.0 - PRESENCE OF CARDIAC PACEMAKER Visit type - Emergency Visit Emergency Visit: Yes ED Registration Date: 03/06/18 Care time: The patient presented to the Emergency Department on the above date and was hospitalized for further evaluation of their emergent condition. - New Patient This patient is new to me today: Yes Date on this admission: 03/06/18 - Critical Care Critical Care patient: Yes Total Critical Care Time (in minutes): 40 Critical Care Statement: The care of this patient involved high complexity decision making to prevent further life threatening deterioration of the patient 's condition and/or to evaluate & treat vital organ system(s) failure or risk of failure.
--- NOTE | 2018-03-06 08:56 | CON.NEURO ---
Consult - Past Medical History Cardio/Vascular: Yes: AFIB, CAD, HTN Gastrointestinal: Yes: Other (Left inguinal hernia. Small bowel obstruction) Renal/: Yes: Renal Inusuff (chronic) Endocrine: Yes: Diabetes Mellitus - Past Surgical History Past Surgical History: Yes: AAA Repair, Appendectomy, Colectomy (partial with lysis of adhesions), Permanent Pacemaker - Alcohol/Substance Use Hx Alcohol Use: No History of Substance Use: reports: None - Smoking History Smoking history: Unknown if ever smoked Have you smoked in the past 12 months: No Aproximately how many cigarettes per day: 10 If you are a former smoker, when did you quit?: 2MONTHS AGO - Social History Usual Living Arrangement: With Spouse ADL: Independent Occupation: Works in a [employer] History of Recent Travel: No Home Medications - Allergies Allergies/Adverse Reactions: Allergies Allergy/AdvReac Type Severity Reaction Status Date / Time No Known Drug Allergies Allergy Verified 03/05/18 22:15 - Home Medications Home Medications: Ambulatory Orders Atorvastatin Ca [Lipitor] 40 mg PO DAILY 02/27/16 Glyburide 10 mg PO BID 02/27/16 Clopidogrel Bisulfate [Plavix -] 75 mg PO DAILY #30 tablet 03/24/16 Calcium Acetate [Phoslo -] 667 mg PO TIDCM #90 capsule 12/08/17 Metoprolol Succinate [Toprol XL -] 50 mg PO BID #60 tab.sr.24h 12/08/17 hydrALAZINE HCL [Apresoline -] 50 mg PO TID #90 tablet 12/08/17 Diltiazem Cd [Cardizem Cd -] 240 mg PO DAILY 03/06/18 Repaglinide 2 mg PO TID 03/06/18 Physical Exam-Neuro Vital Signs: Vital Signs Temperature 97.7 F 03/06/18 08:00 Pulse Rate 70 03/06/18 04:00 Respiratory Rate 69 H 03/06/18 08:00 Blood Pressure 142/80 03/06/18 08:00 O2 Sat by Pulse Oximetry (%) 99 03/06/18 02:30 Labs: CBC, BMP 03/05/18 22:30 03/06/18 04:00 Assessment/Plan CC Episode of shking x3 followed by confusion HPI 67 year old male history of ESRD,[place],CHF,STROKE,AFib,DM. He was having dinner with his and had episode of vomiting and followed by confusion . He came to hospital and his BS was in 800. Patient had episode of seizure due to hypoglycemia in past. He was confused afterward. There was shaking of both hand and twitching of face . Now he is sitting in bed and able to walk around. He was loaded with keppra and had no seizure in last 8 hours. His initial Na was 129. PAST MEDICAL HISTORY: HTN, CHF, [place], afib, CVA, DM, ESRD (dialysis ,,), PVD PAST SURGICAL HISTORY: cardiac stents PPM AAA repair 1994 appendectomy L 5th toe (transmet?) amputation Social History: Smokin.5ppd Alcohol: previous, none currently Drugs: pt/family deny Family History: mother age 83, kidney disease father in his 50s, DM sister alive and well Allergies No Known Drug Allergies Allergy (Verified 03/05/18 22:15) HOME MEDICATIONS: 3 Medication Instructions Recorded Atorvastatin Ca [Lipitor] 40 mg PO DAILY 02/27/16 Glyburide 10 mg PO BID 02/27/16 Clopidogrel Bisulfate [Plavix -] 75 mg PO DAILY #30 tablet 03/24/16 Calcium Acetate [Phoslo -] 667 mg PO TIDCM #90 capsule 12/08/17 Metoprolol Succinate [Toprol XL -] 50 mg PO BID #60 tab.sr.24h 12/08/17 hydrALAZINE HCL [Apresoline -] 50 mg PO TID #90 tablet 12/08/17 Ros reviwed in chart Neurological Examination Alert oriented x 3 speech is normal, eomi, pupils is reactive, no face asymmetry moving all extremity, 5/5 all ext sensation is normal reflex are normal ct head was unremarkable Assessment- Recurrent seizure , most likley due to hyper glycemic event. Given that patient had three episode followed by confusion. I suggest we can continue keppra 750 mg po bid for ten days and than it can be stopped. 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 Plan- I would suggest to do mri ofbrain as part of work up for new onset seizure , eeg can be done outpatient - keppra 750 mg po bid for 10 days - Glucose control and maintenance of health as per PMD Thanking you so much Real Gonzalez MD
[2018-03-06] MEDS ORDERED: CLOPIDOGREL BISULFATE 75 MG TABLET (FP) PO SCH (10:00)
[2018-03-06] MEDS ORDERED: MUPIROCIN 2% TOPICAL OINTMENT FOR DECOLONIZATION NS SCH ×3 (10:00→22:00)
[2018-03-06] MEDS ORDERED: levETIRAcetam 250 MG TABLET (FP) PO SCH (10:00)
[2018-03-06] MEDS ORDERED: ATORVASTATIN CA 40 MG TABLET (FP) PO SCH (10:00)
--- NOTE | 2018-03-06 11:04 | PN ---
Progress Note, Physician Chief Complaint: Mr Howard is very vague in his subjective. He denies fevers, lightheadedness, chest pain, shortness of breath, nausea/vomiting. However he says he does not feel good but a little better than yesterday, but he cannot tell me what "not feeling good" means. Also when asked about his outpatient glucose levels he admits to not checking but says they are "a little high" but also cannot tell me the numbers. Dr Ruth ordered insulin for him in the outpatient setting but he refused. - Current Medication List Current Medications: Active Medications Atorvastatin Calcium (Lipitor -) 40 mg PO DAILY COUNT INCLUDES [facility] Last Admin: 03/06/18 09:03 Dose: 40 mg Calcium Acetate (Phoslo -) 667 mg PO TIDCM COUNT INCLUDES [facility] Last Admin: 03/06/18 07:50 Dose: 667 mg Chlorhexidine Gluconate (Hibiclens For Decolonization -) 1 applic TP HS COUNT INCLUDES [facility] Clopidogrel Bisulfate (Plavix -) 75 mg PO DAILY COUNT INCLUDES [facility] Last Admin: 03/06/18 09:04 Dose: 75 mg Diltiazem HCl (Cardizem Cd -) 240 mg PO DAILY COUNT [facility]CLUDES [facility] Last Admin: 03/06/18 09:04 Dose: 240 mg Heparin Sodium (Porcine) (Heparin -) 5,000 unit SQ BID COUNT [facility]CLUDES [facility] Last Admin: 03/06/18 09:04 Dose: 5,000 unit Hydralazine HCl (Apresoline -) 50 mg PO TID COUNT INCLUDES [facility] Last Admin: 03/06/18 05:46 Dose: 50 mg Insulin Aspart (Novolog Vial Sliding Scale -) 1 vial SQ [facility] COUNT INCLUDES THE [facility]; Protocol Last Admin: 03/06/18 10:33 Dose: Not Given Levetiracetam (Keppra -) 250 mg PO BID COUNT INCLUDES [facility] Metoprolol Succinate (Toprol Xl -) 50 mg PO BID COUNT INCLUDES [facility] Last Admin: 03/06/18 09:04 Dose: 50 mg Mupirocin (Bactroban Ointment (For Decolonization) -) 1 applic NS BID COUNT INCLUDES [facility] Stop: 03/11/18 09:59 - Objective Vital Signs: Vital Signs Temperature 36.5 C 03/06/18 10:00 Pulse Rate 70 03/06/18 10:00 Respiratory Rate 18 03/06/18 10:00 Blood Pressure 156/76 03/06/18 10:00 O2 Sat by Pulse Oximetry (%) 99 03/06/18 09:00 Constitutional: Yes: Well Nourished, No Distress, Calm Cardiovascular: Yes: Regular Rate and Rhythm. No: Gallop, Murmur, Rub Respiratory: Yes: Regular, CTA Bilaterally. No: Rales, Rhonchi, Wheezes Gastrointestinal: Yes: Normal Bowel Sounds, Soft. No: Distention, Tenderness Extremities: Yes: WNL Edema: No Labs: CBC, BMP 03/05/18 22:30 03/06/18 04:00 Problem List - Problems (1) Diabetes Assessment/Plan: -case d/w Dr Ruth -has been running 300-700s as an outpatient -Hgb A1c in December -will recheck -will need exterminator insulin -consult endocrinology -not with acidosis -continue SSI and diabetic diet -d/w ICU team, will place on scheduled insulin regimen Code(s): E11.9 - TYPE 2 DIABETES MELLITUS WITHOUT COMPLICATIONS Qualifiers: Diabetes mellitus type: other specified (including REZA) Diabetes mellitus intermediate insulin use: without exterminator use Diabetes mellitus complication status: with hyperglycemia Qualified Code(s): E13.65 - Other specified diabetes mellitus with hyperglycemia (2) New onset seizure Assessment/Plan: -suspect secondary to hyperglycemia -appreciate neurology assistance -agree with MRI -short course of keppra Code(s): R56.9 - UNSPECIFIED CONVULSIONS (3) Atrial fibrillation Assessment/Plan: -in sinus rhythm on exam -continue toprol xl and cardizem -continue telemetry monitoring Code(s): I48.91 - UNSPECIFIED ATRIAL FIBRILLATION Qualifiers: Atrial fibrillation type: paroxysmal Qualified Code(s): I48.0 - Paroxysmal atrial fibrillation (4) Congestive heart failure Assessment/Plan: -not in exacerbation Code(s): I50.9 - HEART FAILURE, UNSPECIFIED Qualifiers: Qualified Code(s): I50.22 - Chronic systolic (congestive) heart failure (5) Hypertension Assessment/Plan: -currently not at target -continue toprol xl, cardizem, and hydralazine -adjust as needed Code(s): I10 - ESSENTIAL (PRIMARY) HYPERTENSION Qualifiers: Hypertension type: essential hypertension Qualified Code(s): I10 - Essential (primary) hypertension (6) CKD (chronic kidney disease) stage 4, GFR 15-29 ml/min Assessment/Plan: -stable -nephrology consult Code(s): N18.4 - CHRONIC KIDNEY DISEASE, STAGE 4 (SEVERE) Assessment/Plan 32 minutes spent in critical care time with this patient
[2018-03-06 11:08] LABS: MAGNESIUM 2.1 mg/dL (1.8-2.4); PHOSPHOROUS 4.4 mg/dL (2.5-4.9)
--- NOTE | 2018-03-06 11:21 | EKG ---
Test Reason : Blood Pressure : / mmHG Vent. Rate : 069 BPM Atrial Rate : 055 BPM P-R Int : 000 ms QRS Dur : 212 ms QT Int : 510 ms P-R-T Axes : 000 -72 111 degrees QTc Int : 546 ms Ventricular-paced rhythm ABNORMAL ECG Confirmed by MD CAMERON, RENNY ([id number]) on 03/06/2018 11:21:29 AM Referred By: Confirmed By:RENNY BARNES MD
--- NOTE | 2018-03-06 11:45 | CONSULT ---
Consult - text type - Consultation Consultation Note: Renal Consult for ESRD on HD This is a 67 year old gentleman with PMhx of ESRD on HD (TTS, recently started on dialysis), DM, CAD s/p VA, CHF, Afib who presented with AMS/Seizure at home. at the bedside and provided history. Has 3 seperate seizure episodes yesterday followed by post ictal period. Denies any history of seizure in the past. Blood glucose very elevated upon admission. Pt started on Keppra. Last dialysis was Monday. No sob, chest pain, abd pain, N/V/D. PMhx: as above Allergies: NKDA Family Hx: NC Social hx: No T/A/D ROS: as per HPI Home Medications Medication Instructions Recorded Atorvastatin Ca [Lipitor] 40 mg PO DAILY 02/27/16 Glyburide 10 mg PO BID 02/27/16 Clopidogrel Bisulfate [Plavix -] 75 mg PO DAILY #30 tablet 03/24/16 Calcium Acetate [Phoslo -] 667 mg PO TIDCM #90 capsule 12/08/17 Metoprolol Succinate [Toprol XL -] 50 mg PO BID #60 tab.sr.24h 12/08/17 hydrALAZINE HCL [Apresoline -] 50 mg PO TID #90 tablet 12/08/17 Diltiazem Cd [Cardizem Cd -] 240 mg PO DAILY 03/06/18 Repaglinide 2 mg PO TID 03/06/18 Vital Signs Temperature 97.7 F 03/06/18 10:00 Pulse Rate 70 03/06/18 10:00 Respiratory Rate 18 03/06/18 10:00 Blood Pressure 156/76 03/06/18 10:00 O2 Sat by Pulse Oximetry (%) 99 03/06/18 09:00 Intake & Output 03/03/18 03/04/18 03/05/18 03/06/18 23:59 23:59 23:59 23:59 Intake Total 50 Output Total 0 Balance 50 Weight 58.967 kg 58.145 kg NAD awake and alert irregular, No M/R CTA no rales soft NT/ND No LE edema dialysis catheter left chest wall, no tenderness CBC, BMP 03/05/18 22:30 03/06/18 04:00 Current Medications Atorvastatin Calcium (Lipitor -) 40 mg PO DAILY [facility] Last Admin: 03/06/18 09:03 Dose: 40 mg Calcium Acetate (Phoslo -) 667 mg PO T[facility]CM [facility] Last Admin: 03/06/18 11:16 Dose: 667 mg Chlorhexidine Gluconate (Hibiclens For Decolonization -) 1 applic TP HS [facility] Clopidogrel Bisulfate (Plavix -) 75 mg PO DAILY [facility] Last Admin: 03/06/18 09:04 Dose: 75 mg Diltiazem HCl (Cardizem Cd -) 240 mg PO DAILY [facility] Last Admin: 03/06/18 09:04 Dose: 240 mg Heparin Sodium (Porcine) (Heparin -) 5,000 unit SQ BID [facility] Last Admin: 03/06/18 09:04 Dose: 5,000 unit Hydralazine HCl (Apresoline -) 50 mg PO TID [facility] Last Admin: 03/06/18 05:46 Dose: 50 mg Insulin Aspart (Novolog Vial Sliding Scale -) 1 vial SQ [facility]; Protocol Last Admin: 03/06/18 10:33 Dose: Not Given Levetiracetam (Keppra -) 250 mg PO BID [facility] Last Admin: 03/06/18 11:12 Dose: 250 mg Metoprolol Succinate (Toprol Xl -) 50 mg PO BID [facility] Last Admin: 03/06/18 09:04 Dose: 50 mg Mupirocin (Bactroban Ointment (For Decolonization) -) 1 applic NS BID [facility] Stop: 03/11/18 09:59 Last Admin: 03/06/18 11:12 Dose: 1 applic 67 year old gentleman with PMhx of ESRD on HD (TTS, recently started on dialysis), DM, CAD s/p [place], CHF, Afib who presented with AMS/Seizure at home. #ESRD on HD #AMS/Seizures #DM with Hyperglycemia w/o DKA #Hypertension For dialysis today as inpatient UF of 1.5L as tolerated Renal diet, 1.2L fluid restriction will continue HD 3x weekly as inpatinet continue Keppra as per Neuro, ? need for further imaging studies Continue insulin as per primary Continue Hydralazine, metoprolol, cardizem Goal BP < 140/90 Thank you Will follow Beau Iraheta DO
--- NOTE | 2018-03-06 11:46 | PN ---
Teaching Attending Note Name of Resident: Javier Davis ATTENDING PHYSICIAN STATEMENT I saw and evaluated the patient. I reviewed the resident's note and discussed the case with the resident. I agree with the resident's findings and plan as documented. SUBJECTIVE: Patient seen and examined in the ICU. Awake and alert. No seizure activity noted overnight. Denies CP or SOB. No ESCOBEDO or BOV. Intake & Output 03/03/18 03/04/18 03/05/18 03/06/18 23:59 23:59 23:59 23:59 Intake Total 50 Output Total 0 Balance 50 Weight 130 lb 128 lb 3 oz Last Vital Signs Temp Pulse Resp BP Pulse Ox 97.7 F 70 18 156/76 99 03/06/18 10:00 03/06/18 10:00 03/06/18 10:00 03/06/18 10:00 03/06/18 09:00 Active Medications Atorvastatin Calcium (Lipitor -) 40 mg PO DAILY [facility] Last Admin: 03/06/18 09:03 Dose: 40 mg Calcium Acetate (Phoslo -) 667 mg PO TIDCM [facility] Last Admin: 03/06/18 11:16 Dose: 667 mg Chlorhexidine Gluconate (Hibiclens For Decolonization -) 1 applic TP HS [facility] Clopidogrel Bisulfate (Plavix -) 75 mg PO DAILY [facility] Last Admin: 03/06/18 09:04 Dose: 75 mg Diltiazem HCl (Cardizem Cd -) 240 mg PO DAILY [facility] Last Admin: 03/06/18 09:04 Dose: 240 mg Heparin Sodium (Porcine) (Heparin -) 5,000 unit SQ BID [facility] Last Admin: 03/06/18 09:04 Dose: 5,000 unit Hydralazine HCl (Apresoline -) 50 mg PO TID [facility] Last Admin: 03/06/18 05:46 Dose: 50 mg Insulin Aspart (Novolog Vial Sliding Scale -) 1 vial SQ ACHS [facility]; Protocol Last Admin: 03/06/18 10:33 Dose: Not Given Levetiracetam (Keppra -) 250 mg PO BID [facility] Last Admin: 03/06/18 11:12 Dose: 250 mg Metoprolol Succinate (Toprol Xl -) 50 mg PO BID [facility] Last Admin: 03/06/18 09:04 Dose: 50 mg Mupirocin (Bactroban Ointment (For Decolonization) -) 1 applic NS BID [facility] Stop: 03/11/18 09:59 Last Admin: 03/06/18 11:12 Dose: 1 applic GENERAL: Awake and alert. No acute distress. CARDIOVASCULAR: Regular rate and rhythm. No murmurs, rubs, or gallops. PULMONARY: Diminished at the bases, no wheezing ABDOMINAL: Soft. Non-tender. Non-distended. No rebound or guarding. MUSCULOSKELETAL: Normal range of motion at all joints. No bony deformities or tenderness. EXTREMITIES: No cyanosis. No clubbing. No edema. No calf tenderness or swelling. SKIN: Warm and dry. NEUROLOGICAL: Alert, awake, non-focal PSYCHIATRIC: Cooperative. Laboratory Results - last 24 hr 03/05/18 03/05/18 03/05/18 22:12 22:30 22:30 WBC 6.6 RBC 3.97 L Hgb 11.9 Hct 36.9 D MCV 92.9 MCH 29.9 MCHC 32.2 RDW 15.1 D Plt Count 191 D MPV 9.5 Absolute Neuts (auto) 5.2 Neutrophils % 78.9 Lymphocytes % 9.9 Monocytes % 8.1 Eosinophils % 1.8 D Basophils % 1.3 Nucleated RBC % 0 VBG pH POC VBG pCO2 POC VBG pO2 Mixed VBG HCO3 Sodium 129 L Potassium 4.1 Chloride 96 L Carbon Dioxide 22 D Anion Gap 11 BUN 53 H Creatinine 3.3 H Creat Clearance w eGFR 18.68 POC Glucometer > 400 Random Glucose 853 H* D Calcium 8.3 L Phosphorus Magnesium Total Bilirubin 0.5 AST 8 L D ALT 15 D Alkaline Phosphatase 157 H Creatine Kinase 50 Troponin I 0.13 H D Total Protein 6.1 L Albumin 2.7 L Acetone, Qual Negative 03/06/18 03/06/18 03/06/18 01:50 01:50 04:00 WBC RBC Hgb Hct MCV MCH MCHC RDW Plt Count MPV Absolute Neuts (auto) Neutrophils % Lymphocytes % Monocytes % Eosinophils % Basophils % Nucleated RBC % VBG pH 7.24 L* POC VBG pCO2 59.7 H POC VBG pO2 34.2 D Mixed VBG HCO3 24.7 Sodium 133 L Potassium 3.7 Chloride 97 L Carbon Dioxide 27 D Anion Gap 9 BUN 51 H Creatinine 3.3 H Creat Clearance w eGFR 18.68 POC Glucometer Random Glucose 583 H* D Calcium 8.4 L Phosphorus Magnesium Total Bilirubin AST ALT Alkaline Phosphatase Creatine Kinase 55 Troponin I 0.19 H D Total Protein Albumin Acetone, Qual 03/06/18 03/06/18 04:00 10:50 WBC RBC Hgb Hct MCV MCH MCHC RDW Plt Count MPV Absolute Neuts (auto) Neutrophils % Lymphocytes % Monocytes % Eosinophils % Basophils % Nucleated RBC % VBG pH POC VBG pCO2 POC VBG pO2 Mixed VBG HCO3 Sodium 133 L Potassium 3.6 Chloride 98 Carbon Dioxide 24 Anion Gap 11 BUN 51 H Creatinine 3.3 H Creat Clearance w eGFR 18.68 POC Glucometer Random Glucose 463 H* D Calcium 8.4 L Phosphorus 4.4 D Magnesium 2.1 Total Bilirubin AST ALT Alkaline Phosphatase Creatine Kinase Troponin I Total Protein Albumin Acetone, Qual ASSESSMENT/PLAN: Hyperglycemia Seizure (patient reports previous seizure history) Pseudohyponatremia (+) Troponin ESRD on dialysis (Monday, , and Monday) CHF, HTN, [place] x2 (2015)s/p stent placement, CVA / PVD DM AFib PPM Plan Keppra Insulin sliding scale for coverage Need to re-evaluate oral hypoglycemic agents given ERSD Ativan PRN Fall risk precaution Aspiration precaution. Monitor electrolyte Dr Hogan Critical care time spent in reviewing chart, evaluating patient and formulating plan - 36 minutes.
--- NOTE | 2018-03-06 15:42 | CONSULT ---
Consult Consult Specialty:: Endocrinology Referred by:: Dr Romero Reason for Consultation:: Hyperglycemia - History of Present Illness Chief Complaint: Seizure History of Present Illness: This is a 67 year old male with h/o T2DM for about 10 years, ESRD on HD for about a month, [place], CHF, CVA, afib who presented to the ED after seizure like activity at home. The reported to the ED that while patient was eating dinner he abruptly stopped, had shaking of his hands, vomited, and was unable to take a breath. She called 911 and the patient was brought here. He had 2 further shaking episodes in the ED, one witnessed by ED resident who describes shaking of hands, grimacing/torsion of facial features followed by episode of disorientation/confusion. Pt recalls recalls only feeling nauseous. Denies LOC. Doesn't do FS at home regularly. Says he did it about 2 weeks ago and was "high ". No hypos. Urination every 2hrs. Poor vision left eye. Is supposed to have cataract surgery. Denies any paresthesia of feet. Has refused Insulin in the past. BG in ED was 853 - History Source History Provided By: Patient, Medical Record - Past Medical History Cardio/Vascular: Yes: AFIB, CAD, HTN Gastrointestinal: Yes: Other (Left inguinal hernia. Small bowel obstruction) Renal/: Yes: Renal Inusuff (chronic) Endocrine: Yes: Diabetes Mellitus - Past Surgical History Past Surgical History: Yes: AAA Repair, Appendectomy, Colectomy (partial with lysis of adhesions), Permanent Pacemaker - Alcohol/Substance Use Hx Alcohol Use: No History of Substance Use: reports: None - Smoking History Smoking history: Unknown if ever smoked Have you smoked in the past 12 months: No Aproximately how many cigarettes per day: 10 If you are a former smoker, when did you quit?: 2MONTHS AGO - Social History Usual Living Arrangement: With Spouse ADL: Independent Occupation: Works in a [employer] History of Recent Travel: No Home Medications - Allergies Allergies/Adverse Reactions: Allergies Allergy/AdvReac Type Severity Reaction Status Date / Time No Known Drug Allergies Allergy Verified 03/05/18 22:15 - Home Medications Home Medications: Ambulatory Orders Atorvastatin Ca [Lipitor] 40 mg PO DAILY 02/27/16 Glyburide 10 mg PO BID 02/27/16 Clopidogrel Bisulfate [Plavix -] 75 mg PO DAILY #30 tablet 03/24/16 Calcium Acetate [Phoslo -] 667 mg PO TIDCM #90 capsule 12/08/17 Metoprolol Succinate [Toprol XL -] 50 mg PO BID #60 tab.sr.24h 12/08/17 hydrALAZINE HCL [Apresoline -] 50 mg PO TID #90 tablet 12/08/17 Diltiazem Cd [Cardizem Cd -] 240 mg PO DAILY 03/06/18 Repaglinide 2 mg PO TID 03/06/18 Family Disease History - Family Disease History Family Disease History: Diabetes: Father Review of Systems - Review of Systems Constitutional: reports: No Symptoms Eyes: reports: No Symptoms HENT: reports: No Symptoms Neck: reports: No Symptoms Cardiovascular: reports: No Symptoms Respiratory: reports: No Symptoms Gastrointestinal: reports: No Symptoms Genitourinary: reports: Frequency Breasts: reports: No Symptoms Reported Musculoskeletal: reports: No Symptoms Neurological: reports: No Symptoms Endocrine: reports: No Symptoms Hematology/Lymphatic: reports: No Symptoms Physical Exam Vital Signs: Vital Signs Temperature 97.6 F 03/06/18 12:45 Pulse Rate 69 03/06/18 12:45 Respiratory Rate 18 03/06/18 12:45 Blood Pressure 134/72 03/06/18 12:45 O2 Sat by Pulse Oximetry (%) 99 03/06/18 09:00 Constitutional: Yes: No Distress, Calm Eyes: Yes: Conjunctiva Clear, EOM Intact HENT: Yes: Atraumatic, Normocephalic Neck: Yes: Supple, Trachea Midline Cardiovascular: Yes: Regular Rate and Rhythm Respiratory: Yes: Regular, CTA Bilaterally, Other (Left chest wall dialysis cath ) Gastrointestinal: Yes: Normal Bowel Sounds Musculoskeletal: Yes: WNL Edema: No Neurological: Yes: Alert, Oriented Labs: CBC, BMP 03/05/18 22:30 03/06/18 04:00 Imaging - Results Cat Scan: Report Reviewed Problem List - Problems (1) Diabetes Code(s): E11.9 - TYPE 2 DIABETES MELLITUS WITHOUT COMPLICATIONS Qualifiers: Diabetes mellitus type: other specified (including REZA) Diabetes mellitus jail insulin use: without jail use Diabetes mellitus complication status: with hyperglycemia Qualified Code(s): E13.65 - Other specified diabetes mellitus with hyperglycemia (2) Hyperglycemia Code(s): R73.9 - HYPERGLYCEMIA, UNSPECIFIED (3) New onset seizure Code(s): R56.9 - UNSPECIFIED CONVULSIONS Assessment/Plan AP: T2DM with Hyperglycemia Seizure (patient reports previous seizure history) (+) Troponin ESRD on dialysis CHF, HTN, [place] x2 (2016)s/p stent placement, CVA / PVD AFib PPM Chart reviewed Neurology consult noted Will start low dose Insulin as patients on HD tend to be very sensitive to Insulin Start Levemir 6 units QHS Novolog SS coverage Nutrition consult Will f/u
[2018-03-06 18:39] VITALS: BMI 19.4
[2018-03-06] MEDS: HEPARIN NA (PORCINE) 5,000 UNITS/ML 1ML VIAL SQ SCH (21:21)
[2018-03-06] MEDS: levETIRAcetam 250 MG TABLET (FP) PO SCH (21:21)
[2018-03-06] MEDS ORDERED: INSULIN (LEVEMIR) 100 UNITS/ML UNITS SQ SCH (22:00)
[2018-03-06] MEDS ORDERED: CHLORHEXIDINE GLUCONATE 4% CLEANSER FOR DECOLONIZATION TP SCH ×3 (22:00)
[2018-03-06 23:26] LABS: URINE APPEARANCE SLCLOUDY; URINE BILIRUBIN NEGATIVE (<2.0 mg/dL); URINE COLOR LTYELLOW; URINE GLUCOSE (UA) 3+ (NEGATIVE); URINE KETONE NEGATIVE (NEGATIVE); URINE NITRITE NEGATIVE (NEGATIVE); URINE UROBILINOGEN NEGATIVE mg/dL (0.2-1.0)
[2018-03-06 23:27] LABS: URINE LEUK ESTERASE 1+ (NEGATIVE); URINE PROTEIN 3+ (NEGATIVE)
[2018-03-06 23:30] LABS: URINE BACTERIA MANY /hpf (NONE SEEN); URINE MUCUS RARE; YEAST MODERATE
[2018-03-06 23:43] LABS: COCAINE, UR NEGATIVE ng/ml (CUTOFF=300); OPIATES, URI NEGATIVE ng/ml (CUTOFF=300); PHENCYCLIDINE,URINE NEGATIVE ng/ml (CUTOFF=25); URINE AMPHETAMINES NEGATIVE ng/ml (CUTOFF=500); URINE BARBITURATES NEGATIVE ng/ml (CUTOFF=200); URINE BENZODIAZEPINES NEGATIVE ng/ml (CUTOFF=200)
[2018-03-06 23:44] LABS: METHADONE, UR NEGATIVE ng/ml (CUTOFF=300)
[2018-03-07] MEDS: hydrALAZINE HCL 50 MG TABLET (FP) PO SCH ×3 (05:43→21:20)
[2018-03-07] MEDS: INSULIN SLIDING SCALE (NOVOLOG) 1 VIAL SQ SCH ×4 (06:04→21:21)
--- NOTE | 2018-03-07 08:24 | PN ---
Progress Note (short form) - Note Progress Note: 67 year old male admitted to hospital for Episode of shking x3 followed by confusion.He history of ESRD,[place],CHF,STROKE,AFib,DM. He was having dinner with his and had episode of vomiting and followed by confusion . He came to hospital and his BS was in 800. Patient had episode of seizure due to hypoglycemia in past. He was confused afterward. There was shaking of both hand and twitching of face . Now he is sitting in bed and able to walk around. He was loaded with keppra and had no seizure in last 8 hours. He was started on keppra, and ct head was unremarkable, no focal neurological symptoms, no seizure since yesterday. Neurological Examination Alert oriented x 3 speech is normal, eomi, pupils is reactive, no face asymmetry moving all extremity, 5/5 all ext sensation is normal reflex are normal ct head was unremarkable Assessment- Recurrent seizure , most likley due to hyper glycemic event. Given that patient had three episode followed by confusion. Plan continue keppra 250 mg po bid eeg can be obtained - a repeat ct head in one month as outpatient to see interval change, as he cant get mri - would d/c keppra in two weeks, discussed with patient -Follow up outpatient Thanking you so much Real Cancino MD
[2018-03-07 08:41] LABS: BASO % 1.2 % (0-2.0); HEMATOCRIT 36.4 % (35.4-49); HEMOGLOBIN 12.4 GM/dL (11.7-16.9); LYMPH % 13.1 % (8-40); MCH 30.4 pg (25.7-33.7); MEAN CELL VOLUME 89.4 fl (80-96); MEAN PLT VOLUME 9.2 fl (7.5-11.1); MONO % 6.5 % (3.8-10.2); NEUT % 77.2 % (42.8-82.8); PLATELET COUNT 189 K/MM3 (134-434); RBC 4.07 M/mm3 (4.00-5.60); RDW 14.9 % (11.9-15.9)
[2018-03-07 09:09] LABS: ALBUMIN 2.4 g/dl (3.4-5.0); ANION GAP 9 (8-16); BLOOD UREA NITROGEN 52 mg/dL (7-18); CALCIUM 8.3 mg/dL (8.5-10.1); CHLORIDE 105 mmol/L (98-107); CO2 24 mmol/L (21-32); CREATININE 3.2 mg/dL (0.7-1.3); GLUCOSE,RANDOM 124 mg/dL (74-106); MAGNESIUM 2.1 mg/dL (1.8-2.4); PHOSPHOROUS 3.2 mg/dL (2.5-4.9); SGOT/AST 16 U/L (15-37); SGPT/ALT 15 U/L (12-78); SODIUM 138 mmol/L (136-145)
[2018-03-07 09:10] LABS: ALK PHOS 125 U/L (45-117); BILIRUBIN,TOTAL 0.5 mg/dL (0.2-1.0); TOT PROT 5.6 g/dl (6.4-8.2)
[2018-03-07] MEDS: CALCIUM ACETATE 667 MG CAPSULE (FP) PO SCH ×3 (10:17→17:17)
[2018-03-07] MEDS: CLOPIDOGREL BISULFATE 75 MG TABLET (FP) PO SCH (10:49)
[2018-03-07] MEDS: levETIRAcetam 250 MG TABLET (FP) PO SCH ×2 (10:50→21:21)
[2018-03-07] MEDS: HEPARIN NA (PORCINE) 5,000 UNITS/ML 1ML VIAL SQ SCH ×2 (10:50→21:21)
[2018-03-07] MEDS: ATORVASTATIN CA 40 MG TABLET (FP) PO SCH (10:50)
[2018-03-07] MEDS ORDERED: INSULIN (NOVOLOG) ASPART 100 UNITS/ML 10ML VIAL ONE ×4 (12:31→21:07)
--- NOTE | 2018-03-07 12:39 | PN ---
Progress Note, Physician Chief Complaint: Mr Howard says he feels fine. No cp, sob, n/v. - Current Medication List Current Medications: Active Medications Atorvastatin Calcium (Lipitor -) 40 mg PO DAILY [facility] Last Admin: 03/07/18 10:50 Dose: 40 mg Calcium Acetate (Phoslo -) 667 mg PO TIDCM [facility] Last Admin: 03/07/18 10:17 Dose: Not Given Clopidogrel Bisulfate (Plavix -) 75 mg PO DAILY [facility] Last Admin: 03/07/18 10:49 Dose: 75 mg Diltiazem HCl (Cardizem Cd -) 240 mg PO DAILY [facility] Last Admin: 03/07/18 10:49 Dose: 240 mg Heparin Sodium (Porcine) (Heparin -) 5,000 unit SQ BID [facility] Last Admin: 03/07/18 10:50 Dose: 5,000 unit Hydralazine HCl (Apresoline -) 50 mg PO TID [facility] Last Admin: 03/07/18 05:43 Dose: 50 mg Sodium Chloride (Normal Saline -) 250 mls @ 3,000 mls/hr IV PRN PRN PRN Reason: Hypotension during Dialysis Stop: 03/07/18 11:59 Insulin Aspart (Novolog Vial Sliding Scale -) 1 vial SQ TIDAC [facility]; Protocol Last Admin: 03/07/18 06:04 Dose: Not Given Insulin Aspart (Novolog Vial Sliding Scale -) 1 vial SQ [facility]; Protocol Last Admin: 03/06/18 21:22 Dose: Not Given Insulin Detemir (Levemir Vial) 6 units SQ [facility] Last Admin: 03/06/18 21:22 Dose: 6 units Levetiracetam (Keppra -) 250 mg PO BID [facility] Last Admin: 03/07/18 10:50 Dose: 250 mg Metoprolol Succinate (Toprol Xl -) 50 mg PO BID [facility] Last Admin: 03/07/18 10:49 Dose: 50 mg - Objective Vital Signs: Vital Signs Temperature 36.9 C 03/07/18 10:00 Pulse Rate 72 03/07/18 10:25 Respiratory Rate 18 03/07/18 10:25 Blood Pressure 191/61 03/07/18 10:25 O2 Sat by Pulse Oximetry (%) 96 03/07/18 10:00 Constitutional: Yes: Well Nourished, No Distress, Calm Cardiovascular: Yes: Regular Rate and Rhythm. No: Gallop, Murmur, Rub Respiratory: Yes: Regular, CTA Bilaterally. No: Rales, Rhonchi, Wheezes Gastrointestinal: Yes: Normal Bowel Sounds, Soft. No: Distention, Tenderness Extremities: Yes: WNL Edema: No Labs: CBC, BMP 03/07/18 07:20 03/07/18 07:20 Problem List - Problems (1) Diabetes Code(s): E11.9 - TYPE 2 DIABETES MELLITUS WITHOUT COMPLICATIONS Qualifiers: Diabetes mellitus type: other specified (including REZA) Diabetes mellitus custodial insulin use: without long term care pharmacist use Diabetes mellitus complication status: with hyperglycemia Qualified Code(s): E13.65 - Other specified diabetes mellitus with hyperglycemia (2) New onset seizure Code(s): R56.9 - UNSPECIFIED CONVULSIONS (3) Atrial fibrillation Code(s): I48.91 - UNSPECIFIED ATRIAL FIBRILLATION Qualifiers: Atrial fibrillation type: paroxysmal Qualified Code(s): I48.0 - Paroxysmal atrial fibrillation (4) Congestive heart failure Code(s): I50.9 - HEART FAILURE, UNSPECIFIED (5) Hypertension Code(s): I10 - ESSENTIAL (PRIMARY) HYPERTENSION Qualifiers: Hypertension type: essential hypertension Qualified Code(s): I10 - Essential (primary) hypertension (6) CKD (chronic kidney disease) stage 4, GFR 15-29 ml/min Code(s): N18.4 - CHRONIC KIDNEY DISEASE, STAGE 4 (SEVERE) Assessment/Plan (1) Diabetes Assessment/Plan: -appreciate endocrinology assistance -agree with low dose levemir and SSI -much better controlled -monitor glucose today, plan for discharge tomorrow Code(s): E11.9 - TYPE 2 DIABETES MELLITUS WITHOUT COMPLICATIONS Qualifiers: Diabetes mellitus type: other specified (including REZA) Diabetes mellitus custodial insulin use: without long term care pharmacist use Diabetes mellitus complication status: with hyperglycemia Qualified Code(s): E13.65 - Other specified diabetes mellitus with hyperglycemia (2) New onset seizure Assessment/Plan: -suspect secondary to hyperglycemia -appreciate neurology assistance -short course of keppra -outpatient CT scan and EEG -cancel MRI, patient unable to have Code(s): R56.9 - UNSPECIFIED CONVULSIONS (3) Atrial fibrillation Assessment/Plan: -in sinus rhythm on exam -continue toprol xl and cardizem -continue telemetry monitoring Code(s): I48.91 - UNSPECIFIED ATRIAL FIBRILLATION Qualifiers: Atrial fibrillation type: paroxysmal Qualified Code(s): I48.0 - Paroxysmal atrial fibrillation (4) Congestive heart failure Assessment/Plan: -not in exacerbation Code(s): I50.9 - HEART FAILURE, UNSPECIFIED Qualifiers: Qualified Code(s): I50.22 - Chronic systolic (congestive) heart failure (5) Hypertension Assessment/Plan: -currently not at target -continue toprol xl, cardizem, and hydralazine -adjust as needed Code(s): I10 - ESSENTIAL (PRIMARY) HYPERTENSION Qualifiers: Hypertension type: essential hypertension Qualified Code(s): I10 - Essential (primary) hypertension (6) ESRD Assessment/Plan: -appreciate nephrology consult Code(s): N18.4 - CHRONIC KIDNEY DISEASE, STAGE 4 (SEVERE) Dispo -PT consult today -monitor glucose -possible discharge tomorrow
--- NOTE | 2018-03-07 13:37 | PN ---
Progress Note (short form) - Note Progress Note: In bed in NAD Denies any complaints Vital Signs Period Temp Pulse Resp BP Sys/Lauren Pulse Ox Last 24 Hr 97.1 F-99.9 F 63-74 18-20 90-191/37-68 96-96 PE: awake , alert HEENT: EOMI Neck: Supple, NO JVD Lungs: CTA CVS: S1S2 Abd: Benign Ext: No focal deficit Neuro: No focal deficit CMP Sodium 138 mmol/L (136-145) 03/07/18 07:20 Potassium 4.0 mmol/L (3.5-5.1) 03/07/18 07:20 Chloride 105 mmol/L (98-107) 03/07/18 07:20 Carbon Dioxide 24 mmol/L (21-32) 03/07/18 07:20 Anion Gap 9 (8-16) 03/07/18 07:20 BUN 52 mg/dL (7-18) H 03/07/18 07:20 Creatinine 3.2 mg/dL (0.7-1.3) H 03/07/18 07:20 Creat Clearance w eGFR 19.36 (>60) 03/07/18 07:20 POC Glucometer 187 UNITS (80-120) 03/07/18 10:54 Random Glucose 124 mg/dL (74-106) H D 03/07/18 07:20 Hemoglobin A1c % 15.2 % (4.8-6.0) H D 03/07/18 07:20 Calcium 8.3 mg/dL (8.5-10.1) L 03/07/18 07:20 Phosphorus 3.2 mg/dL (2.5-4.9) D 03/07/18 07:20 Magnesium 2.1 mg/dL (1.8-2.4) 03/07/18 07:20 Total Bilirubin 0.5 mg/dL (0.2-1.0) 03/07/18 07:20 AST 16 U/L (15-37) D 03/07/18 07:20 ALT 15 U/L (12-78) 03/07/18 07:20 Alkaline Phosphatase 125 U/L (45-117) H D 03/07/18 07:20 Creatine Kinase 53 IU/L (39-308) 03/06/18 11:10 Troponin I 0.22 ng/ml (0.00-0.05) H 03/06/18 11:10 Total Protein 5.6 g/dl (6.4-8.2) L 03/07/18 07:20 Albumin 2.4 g/dl (3.4-5.0) L 03/07/18 07:20 Current Medications Generic Name Dose Route Start Last Admin Trade Name Freq PRN Reason Stop Dose Admin Atorvastatin Calcium 40 mg 03/07/18 10:00 03/07/18 10:50 Lipitor - PO 40 mg DAILY [facility] Administration Calcium Acetate 667 mg 03/07/18 08:00 03/07/18 12:39 Phoslo - PO 667 mg TIDCM [facility] Administration Clopidogrel Bisulfate 75 mg 03/07/18 10:00 03/07/18 10:49 Plavix - PO 75 mg DAILY [facility] Administration Diltiazem HCl 240 mg 03/07/18 10:00 03/07/18 10:49 Cardizem Cd - PO 240 mg DAILY [facility] Administration Heparin Sodium (Porcine) 5,000 unit 03/06/18 22:00 03/07/18 10:50 Heparin - SQ 5,000 unit BID [facility] Administration Hydralazine HCl 50 mg 03/06/18 22:00 03/07/18 05:43 Apresoline - PO 50 mg TID [facility] Administration Sodium Chloride 250 mls @ 3,000 mls/hr 03/06/18 11:59 Normal Saline - IV 03/07/18 11:59 PRN PRN Hypotension during Dialysis Insulin Aspart 1 vial 03/06/18 16:30 03/07/18 12:39 Novolog Vial Sliding Scale - SQ 2 units TIDAC [facility] Administration Protocol Insulin Aspart 1 vial 03/06/18 22:00 03/06/18 21:22 Novolog Vial Sliding Scale - SQ Not Given HS [facility] Protocol Insulin Detemir 6 units 03/06/18 22:00 03/06/18 21:22 Levemir Vial SQ 6 units HS [facility] Administration Levetiracetam 250 mg 03/06/18 22:00 03/07/18 10:50 Keppra - PO 250 mg BID [facility] Administration Metoprolol Succinate 50 mg 03/06/18 22:00 03/07/18 10:49 Toprol Xl - PO 50 mg BID [facility] Administration AP: T2DM with Hyperglycemia: A1c 15.2 Seizure (patient reports previous seizure history) (+) Troponin ESRD on dialysis CHF, HTN, VT x2 (2016)s/p stent placement, CVA / PVD AFib PPM Continue current Insulin regimen INcrease Levemir 7 units QHS Increase Novolog SS coverage Will need to teach pt and to inject Insulin Nutrition consult Will f/u Problem List - Problems (1) Diabetes Code(s): E11.9 - TYPE 2 DIABETES MELLITUS WITHOUT COMPLICATIONS Qualifiers: Diabetes mellitus type: other specified (including REZA) Diabetes mellitus computer terminal operator insulin use: without computer terminal operator use Diabetes mellitus complication status: with hyperglycemia Qualified Code(s): E13.65 - Other specified diabetes mellitus with hyperglycemia (2) Hyperglycemia Code(s): R73.9 - HYPERGLYCEMIA, UNSPECIFIED (3) New onset seizure Code(s): R56.9 - UNSPECIFIED CONVULSIONS
[2018-03-07] MEDS ORDERED: SODIUM CHLORIDE 250 ML IV PRN (16:57)
--- NOTE | 2018-03-07 17:51 | PN ---
Progress Note (short form) - Note Progress Note: Renal follow up for ESRD on HD Pt seen and examined at the bedside s/p dialysis earlier today w/o complications no further seizure events no sob, chest pain, abd pain, N/V/D Vital Signs Temperature 99.9 F H 03/07/18 13:25 Pulse Rate 70 03/07/18 13:25 Respiratory Rate 18 03/07/18 13:25 Blood Pressure 145/67 03/07/18 13:25 O2 Sat by Pulse Oximetry (%) 96 03/07/18 10:00 Intake & Output 03/04/18 03/05/18 03/06/18 03/07/18 23:59 23:59 23:59 23:59 Intake Total 460 600 Output Total 200 400 Balance 260 200 Weight 58.967 kg 58.06 kg 53.694 kg NAD CTA no LE edema CBC, BMP 03/07/18 07:20 03/07/18 07:20 Current Medications Atorvastatin Calcium (Lipitor -) 40 mg PO DAILY [facility] Last Admin: 03/07/18 10:50 Dose: 40 mg Calcium Acetate (Phoslo -) 667 mg PO TIDCM [facility] Last Admin: 03/07/18 17:17 Dose: 667 mg Clopidogrel Bisulfate (Plavix -) 75 mg PO DAILY [facility] Last Admin: 03/07/18 10:49 Dose: 75 mg Diltiazem HCl (Cardizem Cd -) 240 mg PO DAILY [facility] Last Admin: 03/07/18 10:49 Dose: 240 mg Heparin Sodium (Porcine) (Heparin -) 5,000 unit SQ BID [facility] Last Admin: 03/07/18 10:50 Dose: 5,000 unit Hydralazine HCl (Apresoline -) 50 mg PO TID [facility] Last Admin: 03/07/18 15:29 Dose: 50 mg Sodium Chloride (Normal Saline -) 250 mls @ 3,000 mls/hr IV PRN PRN PRN Reason: Hypotension during Dialysis Stop: 03/07/18 18:00 Insulin Aspart (Novolog Vial Sliding Scale -) 1 vial SQ HS [facility]; Protocol Last Admin: 03/06/18 21:22 Dose: Not Given Insulin Aspart (Novolog Vial Sliding Scale -) 1 vial SQ TIDAC [facility]; Protocol Insulin Detemir (Levemir Vial) 7 units SQ HS [facility] Levetiracetam (Keppra -) 250 mg PO BID [facility] Last Admin: 03/07/18 10:50 Dose: 250 mg Metoprolol Succinate (Toprol Xl -) 50 mg PO BID [facility] Last Admin: 03/07/18 10:49 Dose: 50 mg 67 year old gentleman with PMhx of ESRD on HD (TTS, recently started on dialysis), DM, CAD s/p ND, CHF, Afib who presented with AMS/Seizure at home. #ESRD on HD #AMS/Seizures #DM with Hyperglycemia w/o DKA #Hypertension tolerated dialysis well this am will plan for short HD to resume regular HD schedule Renal diet continue keppra as per Neuro Continue Hydralazine, metoprolol, cardizem Goal BP < 140/90 can consider addition of ARB if bp not at gaorabia Iraheta DO
[2018-03-07] MEDS ORDERED: INSULIN (LEVEMIR) 100 UNITS/ML UNITS SQ SCH (22:00)
[2018-03-08 06:24] LABS: HBSAG SCREEN Negative (Negative); HEP B CORE AB, TOT Negative (Negative)
[2018-03-08] MEDS ORDERED: PT OWN MED DRAWER 7, Y5N ONE ×2 (06:42→09:43)
[2018-03-08] MEDS: INSULIN SLIDING SCALE (NOVOLOG) 1 VIAL SQ SCH ×2 (06:46→12:15)
[2018-03-08] MEDS ORDERED: INSULIN (NOVOLOG) ASPART 100 UNITS/ML 10ML VIAL ONE ×2 (06:51→11:11)
[2018-03-08] MEDS ORDERED: SODIUM CHLORIDE 250 ML IV PRN (07:15)
--- NOTE | 2018-03-08 09:27 | PN ---
Progress Note (short form) - Note Progress Note: In bed in NAD Denies any complaints Vital Signs Period Temp Pulse Resp BP Sys/Lauren Pulse Ox Last 24 Hr 98.0 F-99.9 F 68-80 18-19 90-191/45-77 95-96 PE: awake , alert HEENT: EOMI Neck: Supple, NO JVD Lungs: CTA CVS: S1S2 Abd: Benign Ext: No focal deficit Neuro: No focal deficit CMP Sodium 138 mmol/L (136-145) 03/07/18 07:20 Potassium 4.0 mmol/L (3.5-5.1) 03/07/18 07:20 Chloride 105 mmol/L (98-107) 03/07/18 07:20 Carbon Dioxide 24 mmol/L (21-32) 03/07/18 07:20 Anion Gap 9 (8-16) 03/07/18 07:20 BUN 52 mg/dL (7-18) H 03/07/18 07:20 Creatinine 3.2 mg/dL (0.7-1.3) H 03/07/18 07:20 Creat Clearance w eGFR 19.36 (>60) 03/07/18 07:20 POC Glucometer 171 UNITS (80-120) 03/08/18 05:52 Random Glucose 124 mg/dL (74-106) H D 03/07/18 07:20 Hemoglobin A1c % 15.2 % (4.8-6.0) H D 03/07/18 07:20 Calcium 8.3 mg/dL (8.5-10.1) L 03/07/18 07:20 Phosphorus 3.2 mg/dL (2.5-4.9) D 03/07/18 07:20 Magnesium 2.1 mg/dL (1.8-2.4) 03/07/18 07:20 Total Bilirubin 0.5 mg/dL (0.2-1.0) 03/07/18 07:20 AST 16 U/L (15-37) D 03/07/18 07:20 ALT 15 U/L (12-78) 03/07/18 07:20 Alkaline Phosphatase 125 U/L (45-117) H D 03/07/18 07:20 Creatine Kinase 53 IU/L (39-308) 03/06/18 11:10 Troponin I 0.22 ng/ml (0.00-0.05) H 03/06/18 11:10 Total Protein 5.6 g/dl (6.4-8.2) L 03/07/18 07:20 Albumin 2.4 g/dl (3.4-5.0) L 03/07/18 07:20 Current Medications Generic Name Dose Route Start Last Admin Trade Name Freq PRN Reason Stop Dose Admin Atorvastatin Calcium 40 mg 03/07/18 10:00 03/07/18 10:50 Lipitor - PO 40 mg DAILY [facility] Administration Calcium Acetate 667 mg 03/07/18 08:00 03/07/18 17:17 Phoslo - PO 667 mg TIDCM [facility] Administration Clopidogrel Bisulfate 75 mg 03/07/18 10:00 03/07/18 10:49 Plavix - PO 75 mg DAILY [facility] Administration Diltiazem HCl 240 mg 03/07/18 10:00 03/07/18 10:49 Cardizem Cd - PO 240 mg DAILY [facility] Administration Heparin Sodium (Porcine) 5,000 unit 03/06/18 22:00 03/07/18 21:21 Heparin - SQ 5,000 unit BID [facility] Administration Hydralazine HCl 50 mg 03/06/18 22:00 03/07/18 21:20 Apresoline - PO 50 mg TID [facility] Administration Sodium Chloride 250 mls @ 3,000 mls/hr 03/08/18 07:15 Normal Saline - IV 03/09/18 07:16 PRN PRN Hypotension during Dialysis Insulin Aspart 1 vial 03/06/18 22:00 03/07/18 21:21 Novolog Vial Sliding Scale - SQ 3 units HS [facility] Administration Protocol Insulin Aspart 1 vial 03/07/18 17:23 03/08/18 06:46 Novolog Vial Sliding Scale - SQ 3 units TIDAC [facility] Administration Protocol Insulin Detemir 7 units 03/07/18 22:00 03/07/18 21:22 Levemir Vial SQ 7 units HS [facility] Administration Levetiracetam 250 mg 03/06/18 22:00 03/07/18 21:21 Keppra - PO 250 mg BID [facility] Administration Metoprolol Succinate 50 mg 03/06/18 22:00 03/07/18 21:20 Toprol Xl - PO 50 mg BID [facility] Administration AP: T2DM with Hyperglycemia: A1c 15.2 Seizure (patient reports previous seizure history) (+) Troponin ESRD on dialysis CHF, HTN, VT x2 (2016)s/p stent placement, CVA / PVD AFib PPM Levemir 7 units QHS Increase Novolog SS coverage Will need to teach pt and to inject Insulin Will f/u Problem List - Problems (1) Diabetes Code(s): E11.9 - TYPE 2 DIABETES MELLITUS WITHOUT COMPLICATIONS Qualifiers: Diabetes mellitus type: other specified (including REZA) Diabetes mellitus intermediate insulin use: without intermediate use Diabetes mellitus complication status: with hyperglycemia Qualified Code(s): E13.65 - Other specified diabetes mellitus with hyperglycemia (2) Hyperglycemia Code(s): R73.9 - HYPERGLYCEMIA, UNSPECIFIED (3) New onset seizure Code(s): R56.9 - UNSPECIFIED CONVULSIONS
[2018-03-08] MEDS: CALCIUM ACETATE 667 MG CAPSULE (FP) PO SCH ×2 (09:46→12:11)
[2018-03-08] MEDS: levETIRAcetam 250 MG TABLET (FP) PO SCH (09:46)
[2018-03-08] MEDS: ATORVASTATIN CA 40 MG TABLET (FP) PO SCH (09:46)
[2018-03-08] MEDS: CLOPIDOGREL BISULFATE 75 MG TABLET (FP) PO SCH (09:47)
[2018-03-08] MEDS: HEPARIN NA (PORCINE) 5,000 UNITS/ML 1ML VIAL SQ SCH (09:47)
--- NOTE | 2018-03-08 12:15 | DS ---
Physical Examination Vital Signs: Vital Signs Temperature 36.9 C 03/08/18 10:00 Pulse Rate 70 03/08/18 10:00 Respiratory Rate 18 03/08/18 10:00 Blood Pressure 109/56 03/08/18 10:00 O2 Sat by Pulse Oximetry (%) 95 03/08/18 09:00 Constitutional: Yes: Well Nourished, No Distress, Calm Cardiovascular: Yes: Regular Rate and Rhythm. No: Gallop, Murmur, Rub Respiratory: Yes: Regular, CTA Bilaterally. No: Rales, Rhonchi, Wheezes Gastrointestinal: Yes: Normal Bowel Sounds, Soft. No: Distention, Tenderness Extremities: Yes: WNL Edema: No Labs: CBC, BMP 03/07/18 07:20 03/07/18 07:20 Discharge Summary Reason For Visit: HYPERGLYCEMIA,NEW ONSET SEIZURE Current Active Problems CKD (chronic kidney disease) stage 4, GFR 15-29 ml/min (Acute) Diabetes (Acute) Hyperglycemia (Acute) New onset seizure (Acute) Hospital Course: (1) Diabetes Code(s): E11.9 - TYPE 2 DIABETES MELLITUS WITHOUT COMPLICATIONS Qualifiers: Diabetes mellitus type: other specified (including REZA) Diabetes mellitus longterm insulin use: without longterm use Diabetes mellitus complication status: with hyperglycemia Qualified Code(s): E13.65 - Other specified diabetes mellitus with hyperglycemia (2) New onset seizure Code(s): R56.9 - UNSPECIFIED CONVULSIONS (3) Atrial fibrillation Code(s): I48.91 - UNSPECIFIED ATRIAL FIBRILLATION Qualifiers: Atrial fibrillation type: paroxysmal Qualified Code(s): I48.0 - Paroxysmal atrial fibrillation (4) Congestive heart failure Code(s): I50.9 - HEART FAILURE, UNSPECIFIED (5) Hypertension Code(s): I10 - ESSENTIAL (PRIMARY) HYPERTENSION Qualifiers: Hypertension type: essential hypertension Qualified Code(s): I10 - Essential (primary) hypertension (6) CKD (chronic kidney disease) stage 4, GFR 15-29 ml/min Code(s): N18.4 - CHRONIC KIDNEY DISEASE, STAGE 4 (SEVERE) Mr Howard is a 67 year old male who comes in with seizures secondary to hyperglycemia. He presented to the hospital and was found to have a blood glucose of 853. He was admitted to the ICU and received insulin. He did not have DKA associated with this. He was also very gently hydrated secondary to ESRD requiring HD. His sugars improved. He was originally supposed to be put on insulin as an outpatient but declined. Since he is an ESRD patient endocrinology was consulted and started on low dose levemir and SSI. His sugars are better controlled today. He is currently stable for discharge home. Case d/ w on phone. 38 minutes spent in preparation of this discharge Condition: Stable - Instructions Diet, Activity, Other Instructions: diabetic diet. Resume previous activity Referrals: Zion Ruth MD [Primary Care Provider] - Bryan Saul MD [Staff Physician] - Beau Iraheta MD [Staff Physician] - Disposition: HOME - Home Medications Comprehensive Discharge Medication List: Ambulatory Orders Atorvastatin Ca [Lipitor] 40 mg PO DAILY 02/27/16 Clopidogrel Bisulfate [Plavix -] 75 mg PO DAILY #30 tablet 03/24/16 Calcium Acetate [Phoslo -] 667 mg PO TIDCM #90 capsule 12/08/17 Metoprolol Succinate [Toprol XL -] 50 mg PO BID #60 tab.sr.24h 12/08/17 hydrALAZINE HCL [Apresoline -] 50 mg PO TID #90 tablet 12/08/17 Diltiazem Cd [Cardizem Cd -] 240 mg PO DAILY 03/06/18 Insulin Aspart [Novolog Flexpen] 100 unit SQ ASDIR #1 insuln.pen 03/08/18 Insulin Aspart [Novolog Flexpen] 100 unit SQ ASDIR #1 insuln.pen 03/08/18 Insulin Detemir [Levemir Flextouch] 100 unit SQ HS #1 insuln.pen 03/08/18 Lancing Device/Lancets [Accu-Check Softclix Lancet Kit] 1 each ACHS #1 kit levETIRAcetam [Keppra -] 250 mg PO BID #30 tablet 03/08/18
[2018-03-08 13:10] LABS: BASO % 1.1 % (0-2.0); EOS % 1.7 % (0-4.5); HEMATOCRIT 36.7 % (35.4-49); HEMOGLOBIN 12.4 GM/dL (11.7-16.9); LYMPH % 10.3 % (8-40); MCH 30.4 pg (25.7-33.7); MCHC 33.9 g/dl (32.0-35.9); MEAN CELL VOLUME 89.7 fl (80-96); MEAN PLT VOLUME 9.4 fl (7.5-11.1); MONO % 8.2 % (3.8-10.2); NEUT % 78.7 % (42.8-82.8); PLATELET COUNT 194 K/MM3 (134-434); RBC 4.09 M/mm3 (4.00-5.60); RDW 15.2 % (11.9-15.9); WHITE BLOOD COUNT 8.3 K/mm3 (4.0-10.0)
[2018-03-08] MEDS ORDERED: INSULIN SLIDING SCALE (NOVOLOG) 1 VIAL SQ SCH (13:29)
[2018-03-08 13:30] LABS: ANION GAP 8 (8-16); BLOOD UREA NITROGEN 48 mg/dL (7-18); CALCIUM 8.5 mg/dL (8.5-10.1); CHLORIDE 107 mmol/L (98-107); CO2 29 mmol/L (21-32); GLUCOSE,RANDOM 219 mg/dL (74-106); MAGNESIUM 2.3 mg/dL (1.8-2.4); PHOSPHOROUS 2.9 mg/dL (2.5-4.9); SODIUM 144 mmol/L (136-145)
[2018-03-08] MEDS ORDERED: ALTEPLASE 2 MG VIAL IVPUSH ONE (13:55)
[2018-03-08 14:26] VITALS: BP 121/59; PULSE 73; TEMP 98.4
[2018-03-08] MEDS: hydrALAZINE HCL 50 MG TABLET (FP) PO SCH (15:46)
--- NOTE | 2018-03-08 19:43 | PN ---
Progress Note (short form) - Note Progress Note: Renal follow up for ESRD on HD Pt seen and examined at the bedside earlier today attempted HD but unable to get blood flow in catheter, cathflo inserted and HD terminated no acute complaints no further seizure episodes Vital Signs Temperature 98.4 F 03/08/18 14:00 Pulse Rate 73 03/08/18 14:00 Respiratory Rate 03/08/18 14:00 Blood Pressure 121/59 03/08/18 14:00 O2 Sat by Pulse Oximetry (%) 95 03/08/18 09:00 Intake & Output 03/05/18 03/06/18 03/07/18 03/08/18 23:59 23:59 23:59 23:59 Intake Total 856 791 1978 Output Total 200 600 100 Balance 260 220 960 Weight 58.967 kg 58.06 kg 53.694 kg 52.277 kg NAD CTA no LE edema CBC, BMP 03/08/18 11:30 03/08/18 11:30 67 year old gentleman with PMhx of ESRD on HD (TTS, recently started on dialysis), DM, CAD s/p CA, CHF, Afib who presented with AMS/Seizure at home. #ESRD on HD #AMS/Seizures #DM with Hyperglycemia w/o DKA #Hypertension to resume dialysis on Monday as outpatient continue keppra as per neuro insulin as per heike Iraheta DO
== END 2018-03-08 16:32 | disposition home or self-care (01) | DRG 637 ==
LOC: JER 22:01 → JICU 03-06 00:02 → JER 03-06 02:39 → J4S 03-06 13:11
PROVIDERS: ADMIT Internal Medicine; ATTEND Internal Medicine
PROC: 5A1D70Z Performance of Urinary Filtration, Intermittent, Less than 6 Hours Per Day (ICD-10-PCS; principal; 2018-03-07)
DX: E11.65 Type 2 diabetes mellitus with hyperglycemia (principal); N18.6 End stage renal disease; I13.2 Hypertensive heart and chronic kidney disease with heart failure and with stage 5 chronic kidney disease, or end stage renal disease; I50.22 Chronic systolic (congestive) heart failure; E87.1 Hypo-osmolality and hyponatremia; E44.0 Moderate protein-calorie malnutrition; Z68.1 Body mass index [BMI] 19.9 or less, adult; E11.22 Type 2 diabetes mellitus with diabetic chronic kidney disease; E11.51 Type 2 diabetes mellitus with diabetic peripheral angiopathy without gangrene; I25.2 Old myocardial infarction; E78.00 Pure hypercholesterolemia, unspecified; I48.91 Unspecified atrial fibrillation; R56.9 Unspecified convulsions; I25.10 Atherosclerotic heart disease of native coronary artery without angina pectoris; K40.90 Unilateral inguinal hernia, without obstruction or gangrene, not specified as recurrent; Z95.5 Presence of coronary angioplasty implant and graft; Z86.73 Personal history of transient ischemic attack (TIA), and cerebral infarction without residual deficits; Z87.891 Personal history of nicotine dependence; Z95.0 Presence of cardiac pacemaker; Z89.422 Acquired absence of other left toe(s); Z79.4 Long term (current) use of insulin
CPT/HCPCS: 36415; 70450-TC; 71045-TC-FY; 80048; 80053; 80307; 81003; 81015; 82009; 82550; 82803; 82962; 83036; 83735; 84100; 84484; 85025; 86704; 86706; 86708; 86803; 87340; 93005; 93010; 95816; 97116-GP; 97161-GP; 99285-25; J1644; J7030

== ENCOUNTER 2018-03-14 09:01 | Day surgery (SDC) | payer OTHER, BC ==
[2018-03-13 14:32] VITALS: BMI 16.2
[2018-03-14] MEDS ORDERED: LIDOCAINE HCL 1%, 10 MG/ML (20ML VIAL) ONE (09:45)
[2018-03-14] MEDS ORDERED: MIDAZOLAM HCL 2 MG/2 ML SINGLE DOSE VIAL ONE ×2 (09:45)
[2018-03-14] MEDS ORDERED: HEPARIN NA (PORCINE) 5,000 UNITS/ML 1ML VIAL ONE (09:45)
[2018-03-14] MEDS ORDERED: POVIDONE-IODINE OINTMENT 10% - 28.4 GM TUBE ONE (09:45)
[2018-03-14] MEDS ORDERED: ROPIVACAINE HCL 0.5% 30ML VIAL ONE (09:46)
[2018-03-14] MEDS ORDERED: PAPAVERINE HCL 30 MG/1 ML 10 ML VIAL NR ONE (10:23)
--- NOTE | 2018-03-14 10:39 | HP ---
Satellite H - Chief Complaint History of Present Illness: 67 year old with renal failure needs AV access for planned dialysis. Right handed with left sided PPM. History Source: Patient Limitations to Obtaining History: No Limitations - Past Medical History Allergies/Adverse Reactions: Allergies Allergy/AdvReac Type Severity Reaction Status Date / Time No Known Drug Allergies Allergy Verified 03/13/18 14:14 Cardiovascular: Yes: AFIB, CAD, HTN Gastrointestinal: Yes: Other (Left inguinal hernia. Small bowel obstruction) Renal/: Yes: Renal Inusuff (chronic) Endocrine: Yes: Diabetes Mellitus - Current Medications Current Medications: Home Medications Medication Instructions Recorded Atorvastatin Ca [Lipitor] 40 mg PO DAILY 02/27/16 Clopidogrel Bisulfate [Plavix -] 75 mg PO DAILY #30 tablet 03/24/16 Calcium Acetate [Phoslo -] 667 mg PO TIDCM #90 capsule 12/08/17 Metoprolol Succinate [Toprol XL -] 50 mg PO BID #60 tab.sr.24h 12/08/17 hydrALAZINE HCL [Apresoline -] 50 mg PO TID #90 tablet 12/08/17 Diltiazem Cd [Cardizem Cd -] 240 mg PO DAILY 03/06/18 Insulin Aspart [Novolog Flexpen] 100 unit SQ ASDIR #1 insuln.pen 03/08/18 Insulin Detemir [Levemir Flextouch] 100 unit SQ HS #1 insuln.pen 03/08/18 Lancing Device/Lancets [Accu-Check 1 each ACHS #1 kit 03/08/18 Softclix Lancet Kit] levETIRAcetam [Keppra -] 250 mg PO BID #30 tablet 03/08/18 Satellite Physical Exam - Physical Examination Vital Signs: Vital Signs Period Temp Pulse Resp BP Sys/Lauren Pulse Ox Last 24 Hr 97.7 F-97.7 F 69-69 20-20 111-111/55-55 100 General Appearance: Alert & Oriented x3 ENT: Clear Lung: Clear to auscultation Heart: Regular rate & rhythm Abdomen: Soft Extremities: No edema, Other (Right cephalic vein 2.5 mm in forarm.) Neurological: Intact Satellite Impression/Plan - Impression/Plan Impression: CKD. Access to be placed in right arm due to left sided pacemaker. Operative Procedure: Creation AV fistula Date to be Performed: 03/14/18
[2018-03-14] MEDS ORDERED: LIDOCAINE HCL/PF 2% SDV 5ML VIAL ONE (10:50)
[2018-03-14] MEDS ORDERED: PROPOFOL 20 ML ONE (10:50)
[2018-03-14] MEDS ORDERED: HEPARIN NA (PORCINE) 5,000 UNITS/ML 1ML VIAL TP ONE (11:05)
[2018-03-14] MEDS ORDERED: LIDOCAINE HCL 1%, 10 MG/ML (20ML VIAL) NR ONE ×2 (11:05)
[2018-03-14] MEDS ORDERED: POVIDONE-IODINE OINTMENT 10% - 28.4 GM TUBE TP ONE (11:59)
[2018-03-14] MEDS ORDERED: oxyCODONE HCL 5 MG TABLET PO PRN (12:09)
[2018-03-14] MEDS ORDERED: ONDANSETRON 4 MG/2 ML VIAL IVPUSH PRN (12:09)
[2018-03-14] MEDS ORDERED: ACETAMINOPHEN 325 MG TABLET (FP) PO PRN (12:09)
--- NOTE | 2018-03-14 12:09 | OP ---
Operative Note - Note: Operative Date: 03/14/18 Pre-Operative Diagnosis: Renal failure Operation: Creation of AV fistula right arm Findings: Patent upper arm basilic vein and brachial artery Post-Operative Diagnosis: Same as Pre-op Surgeon: Josh Gan Anesthesiologist/MARKETING SERVICES MANAGER: Goldie Cueto Anesthesia: Fractional
[2018-03-14] MEDS ORDERED: SODIUM CHLORIDE 1,000 ML IV SCH (12:15)
[2018-03-14] MEDS ORDERED: SODIUM CHLORIDE 0.45% 1,000 ML IV SCH (12:15)
--- NOTE | 2018-03-14 14:11 | OP ---
DATE OF OPERATION: 03/14/2018 SURGEON: Josh Gan MD PROCEDURE: Creation of left arm AV fistula between basilic vein and brachial artery. PREOPERATIVE DIAGNOSIS: Chronic kidney disease. POSTOPERATIVE DIAGNOSIS: Chronic kidney disease. ANESTHESIA: Fractional. ANESTHESIOLOGIST: Goldie Cueto MD OPERATIVE FINDINGS: The left basilic vein was patent above the elbow. The diameter was approximately 3 mm. The adjacent brachial artery was patent with normal flow. OPERATIVE PROCEDURE: Following routine patient identification with side and site verification, intravenous sedation was established. The right arm was prepped with ChloraPrep. A timeout was performed. Lidocaine 1% was infiltrated over the basilic vein just proximal to the elbow crease. A longitudinal incision was made over the vein and it was mobilized from its bed. It was ligated distally and incised. It was distended with heparin and papaverine solution. No. 5 and No. 8 feeding tubes were passed proximally without resistance. The brachial artery was then exposed through the same incision and encircled proximally and distally with Vesseloops. Side branches were ligated and divided. The vein was then freed and spatulated. The artery was occluded with Vesseloops and then opened on the exposed surface with a 6-mm arteriotomy. The end of the vein was anastomosed to the side of the artery with a plain suture of 6-0 Prolene. Prior to completion of the suture line the artery was allowed back bleed and flush and the vein was flushed with heparin solution. Suture line was created and all vessels were released. There was good flow through the anastomosis with a palpable thrill proximally. Bleeding from the suture line was controlled with Surgicel. Hemostasis was achieved. Wounds were closed with interrupted suture of 3-0 Vicryl and skin yifan. A sterile dressing was applied and the patient was taken to the recovery room in stable condition. Zan [id number] [id number]
[2018-03-14] MEDS ORDERED: ACETAMINOPHEN 325 MG TABLET (FP) ONE (14:14)
[2018-03-14 15:16] VITALS: BP 110/60; PULSE 85; TEMP 97.8
== END 2018-03-14 15:10 | disposition home or self-care (01) ==
LOC: JASU-SURG 09:01
PROVIDERS: ATTEND Surgery
PROC: 03170ZD Bypass Right Brachial Artery to Upper Arm Vein, Open Approach (ICD-10-PCS; principal; 2018-03-14 10:00)
DX: I12.0 Hypertensive chronic kidney disease with stage 5 chronic kidney disease or end stage renal disease (principal); N18.6 End stage renal disease
CPT/HCPCS: 82962; 94760; J1644

== ENCOUNTER 2018-05-07 11:11 | Day surgery (SDC) | payer OTHER, BC ==
[2018-05-07] MEDS ORDERED: MIDAZOLAM HCL 2 MG/2 ML SINGLE DOSE VIAL ONE ×2 (12:22→12:43)
[2018-05-07] MEDS ORDERED: PROPOFOL 20 ML ONE ×2 (12:44→13:44)
[2018-05-07] MEDS ORDERED: LIDOCAINE HCL 1%, 10 MG/ML (20ML VIAL) NR ONE (12:52)
[2018-05-07] MEDS ORDERED: HEPARIN NA (PORCINE) 5,000 UNITS/ML 1ML VIAL SQ ONE (13:02)
[2018-05-07] MEDS ORDERED: POVIDONE-IODINE OINTMENT 10% - 28.4 GM TUBE ONE (14:22)
--- NOTE | 2018-05-07 14:51 | HP ---
History & Physical Update - History Currently as noted:: 67 yo male with ESRD on HD. Right basilic vein fistula created 6 weeks ago. - Physical Currently as noted:: Right upper arm fistula. - Assessment Currently as noted:: ESRD on HD - Plan Currently as noted:: For revision of AV fistula with proximalization of arterial anastomosis.
--- NOTE | 2018-05-07 14:52 | OP ---
Operative Note - Note: Operative Date: 05/07/18 Pre-Operative Diagnosis: ESRD on HD. Steal syndrome right arm Operation: Revision of right arm AV fistula Findings: Patent brachial-basilic fistula. Axillary artery 5 mm with good pulse Post-Operative Diagnosis: Same as Pre-op Surgeon: Josh Gan Anesthesiologist/THEATER USHER: Abe Matos Anesthesia: Fractional
[2018-05-07] MEDS ORDERED: oxyCODONE HCL 5 MG TABLET PO PRN ×2 (15:14→15:19)
[2018-05-07] MEDS ORDERED: ACETAMINOPHEN 325 MG TABLET (FP) PO PRN ×2 (15:14→15:19)
[2018-05-07] MEDS ORDERED: SODIUM CHLORIDE 1,000 ML IV SCH (15:15)
[2018-05-07] MEDS ORDERED: ONDANSETRON 4 MG/2 ML VIAL IVPUSH PRN (15:15)
[2018-05-07 16:42] VITALS: BMI 19.8
[2018-05-07 18:03] VITALS: BP 109/54; PULSE 79; TEMP 97.5
--- NOTE | 2018-05-14 19:57 | OP ---
DATE OF OPERATION: 05/07/2018 SURGEON: Josh Gan MD PROCEDURE: Revision of right arm arteriovenous fistula. PREOPERATIVE DIAGNOSIS: End-stage renal disease on hemodialysis with steal syndrome. POSTOPERATIVE DIAGNOSIS: End-stage renal disease on hemodialysis with steal syndrome. ANESTHESIA: Fractional. ANESTHESIOLOGIST: Abe Matos MD OPERATIVE FINDINGS: The right brachial basilic vein fistula was patent with a diameter of approximately 7 mm. The axillary artery was patent with a diameter of 5 mm and had normal pulse. OPERATIVE PROCEDURE: Following routine patient identification with site and side verification, intravenous sedation was established. The right arm was prepped with ChloraPrep. A time-out was performed. Then 1% lidocaine was infiltrated over the basilic vein from the distal upper arm to the axilla. The vein had been mapped preoperatively with duplex imaging. The vein was then exposed through the long incision. Division of the subcutaneous tissues using cautery. Crossing vessels and nerves were ligated with clips and divided. The vein was mobilized from its bed. All side branches were ligated with silk ties and divided. The vein was then ligated distally as close to the arterial anastomosis as possible. The vein was flushed with heparin and saline solution then marked to prevent twisting. The axillary artery was then exposed as far proximal as possible. It was mobilized and secured with Vessel Loops. Side branches were ligated with silk ties and divided. A subcutaneous tunnel was then created in the upper arm to allow for a loop configuration of the vein graft. Care was taken to prevent any severe angulation at the area of loop. The artery was then occluded with Vessel Loops. The vein was spatulated. The artery was opened with a longitudinal arteriotomy measuring approximately 5 mm. The vein was anastomosed to the side of the artery with running suture of 6-0 Prolene. Prior to completion of the suture line, the artery was allowed to back bleed and flush, and the vein was flushed with heparin solution. Suture line was completed, and vessels were released. There was good flow through the anastomosis with a palpable thrill through the vein. The distal artery was evaluated with Doppler, and there was a strong Doppler signal both with and without compression of the vein. The wounds were irrigated and closed with interrupted suture of 3-0 Vicryl leaving the entire length of the vein in the subcutaneous position. The skin was closed with yifan. Sterile dressings were applied, and the patient was taken to the recovery room in stable condition. Zan SANCHEZ/[id number]
== END 2018-05-07 17:40 | disposition home or self-care (01) ==
LOC: JASU-SURG 11:11
PROVIDERS: ATTEND Surgery
PROC: 05WY3JZ Revision of Synthetic Substitute in Upper Vein, Percutaneous Approach (ICD-10-PCS; principal; 2018-05-07 12:00)
DX: T82.898A Other specified complication of vascular prosthetic devices, implants and grafts, initial encounter (principal); I12.0 Hypertensive chronic kidney disease with stage 5 chronic kidney disease or end stage renal disease; E11.22 Type 2 diabetes mellitus with diabetic chronic kidney disease; N18.6 End stage renal disease; Z99.2 Dependence on renal dialysis; Z79.4 Long term (current) use of insulin; I48.91 Unspecified atrial fibrillation; Z79.01 Long term (current) use of anticoagulants
CPT/HCPCS: 36415; 82962; 84132; 94760; J1644

== ENCOUNTER 2018-09-03 12:22 | Emergency (ER) | payer OTHER, BC ==
--- NOTE | 2018-09-03 12:37 | PDOC ---
History of Present Illness - General Stated Complaint: Blood Sugar Problem Time Seen by Provider: 09/03/18 12:37 - History of Present Illness Initial Comments: 68 year old male with PMH of DM, ESRD, MS, CHF, CVA, afib who presented to the ED after an episode of hypoglycemia while awaiting the stress test. Patient was called in via pre-notification that his sugars were in the 40s after experiencing an episode of shaking, diaphoresis, nausea, and pallor. He was given D10 via IV and two cups of juice with good rapid resolution of his symptoms. Upon presentation to our ED he was asymptomatic and able to ambulate without trepidation. Per and patient at bedside, it seems that they are slightly confused about the patient's insulin regimen and are adjusting his Lantus as a sliding scale + covering with his humolog when he is NPO. Patient denies any current sick symptoms including fevers, chills, cough, nausea, vomiting, chest pain or other symptoms. 09/03/18 12:39 Past History - Past Medical History Allergies/Adverse Reactions: Allergies Allergy/AdvReac Type Severity Reaction Status Date / Time No Known Drug Allergies Allergy Verified 09/03/18 13:23 Home Medications: Ambulatory Orders Atorvastatin Ca [Lipitor] 40 mg PO DAILY 02/27/16 Clopidogrel Bisulfate [Plavix -] 75 mg PO DAILY #30 tablet 03/24/16 Calcium Acetate [Phoslo -] 667 mg PO TIDCM #90 capsule 12/08/17 Metoprolol Succinate [Toprol XL -] 50 mg PO BID #60 tab.sr.24h 12/08/17 hydrALAZINE HCL [Apresoline -] 50 mg PO TID #90 tablet 12/08/17 Diltiazem Cd [Cardizem Cd -] 240 mg PO DAILY 03/06/18 Insulin Aspart [Novolog Flexpen] 100 unit SQ ASDIR #1 insuln.pen 03/08/18 Insulin Detemir [Levemir Flextouch] 100 unit SQ HS #1 insuln.pen 03/08/18 Anemia: Yes Asthma: No Cancer: No Cardiac Disorders: Yes (MS X2 2016, Stent, Pacemaker) CVA: Yes (MILD STROKE X2) COPD: Yes (smoker) CHF: Yes Dementia: No Diabetes: Yes GI Disorders: Yes (Intestinal blockage) Disorders: No HTN: Yes Hypercholesterolemia: No Liver Disease: No Seizures: Yes (last seizure in january 2018) Thyroid Disease: No - Surgical History Abdominal Surgery: Yes (1994 AORTIC ANEURYSM) Appendectomy: Yes Cardiac Surgery: Yes (aortic aneurism repair 95',PM,STENT X 1.) Cholecystectomy: No Lung Surgery: No Neurologic Surgery: No Orthopedic Surgery: Yes (Left 5th toe amputation) - Immunization History Immunization Up to Date: Yes - Suicide/Smoking/Psychosocial Hx Smoking Status: Yes Smoking History: Current every day smoker Have you smoked in the past 12 months: Yes Number of Cigarettes Smoked Daily: 20 If you are a former smoker, when did you quit?: 2MONTHS AGO 'Breaking Loose' booklet given: 03/21/16 Hx Alcohol Use: (stopped drinking 5 yrs. ago) Drug/Substance Use Hx: No Substance Use Type: None Hx Substance Use Treatment: No Review of Systems - Review of Systems Constitutional: No: Chills, Diaphoresis, Fever, Loss of Appetite, Night Sweats, Weakness HEENTM: No: Eye Pain, Blurred Vision, Tearing, Recent change in vision, Double Vision Respiratory: No: Cough, Orthopnea, Shortness of Breath, SOB with Exertion Cardiac (ROS): No: Chest Pain, Edema, Irregular Heart Rate, Lightheadedness, Palpitations ABD/GI: No: Nausea, Poor Appetite, Poor Fluid Intake, Rectal Bleeding, Vomiting : No: Burning, Dysuria, Discharge, Frequency Musculoskeletal: No: Joint Pain, Joint Swelling, Muscle Pain Integumentary: No: Bruising, Change in Color, Dryness Neurological: No: Headache, Numbness, Paresthesia, Pre-Existing Deficit Psychiatric: No: Anxiety, Depression Endocrine: No: Excessive Sweating, Flushing, Intolerance to Cold Hematologic/Lymphatic: No: Anemia, Blood Clots, Easy Bleeding, Easy Bruising *Physical Exam - Physical Exam General Appearance: Yes: Nourished, Appropriately Dressed. No: Apparent Distress HEENT: positive: EOMI, SHANNAN, Normal ENT Inspection, Normal Voice Neck: positive: Trachea midline, Normal Thyroid, Supple. negative: Tender, Rigid Respiratory/Chest: positive: Lungs Clear, Normal Breath Sounds. negative: Chest Tender, Respiratory Distress, Accessory Muscle Use Cardiovascular: positive: Regular Rhythm, Regular Rate Gastrointestinal/Abdominal: positive: Normal Bowel Sounds, Flat, Soft. negative : Tender Rectal Exam: positive: normal exam Lymphatic: positive: Tenderness. negative: Adenopathy Musculoskeletal: positive: Normal Inspection. negative: Decreased Range of Motion Extremity: positive: Normal Capillary Refill, Normal Inspection, Normal Range of Motion. negative: Tender Integumentary: positive: Normal Color, Dry, Warm Neurologic: positive: glass tube bender II-XII NML intact, Fully Oriented, Alert, Normal Mood/ Affect, Normal Response ED Treatment Course - LABORATORY CBC & Chemistry Diagram: 09/03/18 13:04 09/03/18 13:04 Medical Decision Making - Medical Decision Making 68 year old male with IDDM presenting with an episode of hypoglycemia when his covered him with 16 units of short acting this morning while NPO for stress test. No infectious signs or VS abnormalities. FS and CMP glucose have remained stable. Spoke with Dr. Ruth and patient should be on 12 units Glargine at night and taking sliding scale Aspart premeal. 09/03/18 13:24 Labs demonstrating elevated WBC but platelets WNL. Repeat FS 85. Patient is well appearing. Touched base with Dr. Ruth regarding elevated WBC and he is OK following up as an outpatient if needed. 09/03/18 14:26 *DC/Admit/Observation/Transfer Diagnosis at time of Disposition: Hypoglycemia - Discharge Dispostion Disposition: HOME Condition at time of disposition: Improved Decision to Admit order: No - Referrals Referrals: Zion Ruth MD [Primary Care Provider] - - Patient Instructions Additional Instructions: Please take your 12 units long acting insulin no matter what. Please do not take any short acting insulin if you are not eating. If you are eating please adjust your short acting insulin before every meal. - Post Discharge Activity
[2018-09-03 12:56] VITALS: BP 156/70; PULSE 70; TEMP 97.2; BMI 20.5
[2018-09-03 13:24] LABS: BASO % 0.5 % (0-2.0); EOS % 0.2 % (0-4.5); HEMATOCRIT 40.6 % (35.4-49); LYMPH % 3.4 % (8-40); MCH 29.5 pg (25.7-33.7); MCHC 32.1 g/dl (32.0-35.9); MEAN CELL VOLUME 91.9 fl (80-96); MEAN PLT VOLUME 8.8 fl (7.5-11.1); MONO % 6.8 % (3.8-10.2); NEUT % 89.1 % (42.8-82.8); PLATELET COUNT 248 K/MM3 (134-434); RBC 4.42 M/mm3 (4.00-5.60); RDW 17.9 % (11.9-15.9); WHITE BLOOD COUNT 16.2 K/mm3 (4.0-10.0)
--- NOTE | 2018-09-03 13:33 | PDOC ---
Attending Attestation - HPI HPI: 09/03/18 15:32 68 y/o M with a pmhx of HTN, HLD, IDDM, and CAD, who presents to the emergency department [facility] for evaluation of hypoglycemia. Patient reports feeling diaphoretic, nauseas, and weak while in a stress test this morning. Patient states facility evaluated his BGL to be in 30s-40s. EMS administered d-10 and gave two orange juice on scene and pt was feeling improve.d Patient reports being NPO for both stress and blood test. As per at bedside, patient was given 16 units of levemir prior to stress test this morning. At presentation, patient has no symptoms. Denies chest pain, sob, diaphoersis, blurry vision, lightheadedness, headache, f /c, n/v, urinary frequency/urgency, diarrhea, and constipation. <Nabor Chavarria - Last Filed: 09/03/18 15:32> - Resident Resident Name: Giuseppe Reyes - ED Attending Attestation I have performed the following: I have examined & evaluated the patient, The case was reviewed & discussed with the resident, I agree w/resident's findings & plan, Exceptions are as noted - Physicial Exam PE: 09/03/18 13:57 GENERAL: The patient is awake, alert, and fully oriented, Nontoxic - in no acute distress. HEAD: Normocephalic, atraumatic. EYES: extraocular movements intact, sclera anicteric, conjunctiva clear. ENT: Normal voice, Moist mucous membranes. NECK: Normal range of motion, supple LUNGS: Breath sounds equal, clear to auscultation bilaterally. No wheezes, no rhonchi, no rales. HEART: Regular rate and rhythm, normal S1 and S2 without murmur, rub or gallop. ABDOMEN: Soft, nontender, No guarding, no rebound. . No CVA tenderness EXTREMITIES: Normal range of motion, trace edema. NEUROLOGICAL: No facial assymetry, Normal speech, PSYCH: Normal mood, normal affect. SKIN: PermCath in the left chest ,Warm, Dry, normal turgor, - Medical Decision Making 09/03/18 13:35 68y M HTN, HL, ESRD, IDDM, CAD, presents was pending a stress test, was diaphoretic, nauseas, weak, BGM was in 30s-40s EMS gav pt juice and D10 with imrpovement of the sypmtoms No recent complaints of fever, chills, cough, diarrhea, dysuria, chest pain, palpitations. pt was NPO for his stress, was given insulin this AM as his BGM was elevated 09/03/18 13:58 Suspect that his hypoglycemic episode secondary to insulin use in setting of being nothing by mouth Will check basic labs, EKG, We'll rule out occult infection 09/03/18 16:58 pts bgm holding up leukocytosis noted no clinical signs of infection will dc with pmd fu return precautions were discussd <Evan Covarrubias - Last Filed: 09/06/18 09:26> Heart Score/ECG Review - ECG Impressions Comment:: 09/03/18 13:58 ventricular paced rhthm rate of 59 approrpiate discordance <Evan Covarrubias - Last Filed: 09/06/18 09:26>
[2018-09-03 13:36] LABS: ALBUMIN 2.6 g/dl (3.4-5.0); ALK PHOS 123 U/L (45-117); ANION GAP 9 MMOL/L (8-16); BILIRUBIN,TOTAL 0.8 mg/dL (0.2-1); BLOOD UREA NITROGEN 22 mg/dL (7-18); CALCIUM 8.1 mg/dL (8.5-10.1); CHLORIDE 104 mmol/L (98-107); CO2 23 mmol/L (21-32); CREATININE 3.1 mg/dL (0.55-1.3); GLUCOSE,RANDOM 65 mg/dL (74-106); POTASSIUM 3.7 mmol/L (3.5-5.1); SGOT/AST 6 U/L (15-37); SGPT/ALT 8 U/L (13-61); SODIUM 136 mmol/L (136-145); TOT PROT 6.6 g/dl (6.4-8.2)
--- NOTE | 2018-09-04 18:17 | EKG ---
Test Reason : Blood Pressure : / mmHG Vent. Rate : 069 BPM Atrial Rate : 127 BPM P-R Int : 000 ms QRS Dur : 206 ms QT Int : 508 ms P-R-T Axes : 000 -72 106 degrees QTc Int : 544 ms ELECTRONIC VENTRICULAR PACEMAKER ABNORMAL ECG Confirmed by MD BARNES GREGORY ([id number]) on 09/04/2018 6:17:13 PM Referred By: Confirmed By:RENNY BARNES MD
== END 2018-09-03 15:51 | disposition home or self-care (01) ==
LOC: JER 12:22
DX: E11.649 Type 2 diabetes mellitus with hypoglycemia without coma (principal); Z79.4 Long term (current) use of insulin; I13.2 Hypertensive heart and chronic kidney disease with heart failure and with stage 5 chronic kidney disease, or end stage renal disease; E11.22 Type 2 diabetes mellitus with diabetic chronic kidney disease; E11.65 Type 2 diabetes mellitus with hyperglycemia; N18.6 End stage renal disease; I50.9 Heart failure, unspecified; N17.8 Other acute kidney failure; Z99.2 Dependence on renal dialysis; I25.2 Old myocardial infarction; I48.91 Unspecified atrial fibrillation; Z79.01 Long term (current) use of anticoagulants; Z86.73 Personal history of transient ischemic attack (TIA), and cerebral infarction without residual deficits; Z95.5 Presence of coronary angioplasty implant and graft; Z95.0 Presence of cardiac pacemaker; J44.9 Chronic obstructive pulmonary disease, unspecified; D64.9 Anemia, unspecified; Z87.19 Personal history of other diseases of the digestive system; Z86.79 Personal history of other diseases of the circulatory system; Z89.422 Acquired absence of other left toe(s); Z86.69 Personal history of other diseases of the nervous system and sense organs
CPT/HCPCS: 36415; 80053; 82962; 85025; 93005; 93010; 99283-25

== ENCOUNTER 2018-09-11 05:41 | Inpatient (IN) | payer OTHER, BC ==
--- NOTE | 2018-09-11 06:16 | PDOC ---
History of Present Illness - General Chief Complaint: Rectal Bleed Stated Complaint: RECTAL BLEED - History of Present Illness Initial Comments: 68 year old male with PMH of DM, ESRD (T, Th, Sat), MS, CHF, CVA, afib on plavix presenting with BRBPR over the past two hours. States that he woke up with a strange sensation in his pants and noticed a lot of clots and bright blood. 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 Denies any fevers, chills, nausea, vomiting, abdominal pain, chest pain, SOB, or other symptoms. 09/11/18 06:19 Past History - Past Medical History Allergies/Adverse Reactions: Allergies Allergy/AdvReac Type Severity Reaction Status Date / Time No Known Drug Allergies Allergy Verified 09/11/18 05:52 Home Medications: Ambulatory Orders Atorvastatin Ca [Lipitor] 40 mg PO DAILY 02/27/16 Clopidogrel Bisulfate [Plavix -] 75 mg PO DAILY #30 tablet 03/24/16 Calcium Acetate [Phoslo -] 667 mg PO TIDCM #90 capsule 12/08/17 Metoprolol Succinate [Toprol XL -] 50 mg PO BID #60 tab.sr.24h 12/08/17 hydrALAZINE HCL [Apresoline -] 50 mg PO TID #90 tablet 12/08/17 Diltiazem Cd [Cardizem Cd -] 240 mg PO DAILY 03/06/18 Insulin Aspart [Novolog Flexpen] 100 unit SQ ASDIR #1 insuln.pen 03/08/18 Insulin Detemir [Levemir Flextouch] 100 unit SQ HS #1 insuln.pen 03/08/18 Anemia: Yes Asthma: No Cancer: No Cardiac Disorders: Yes (MS X2 2016, Stent, Pacemaker) CVA: Yes (MILD STROKE X2) COPD: Yes (smoker) CHF: Yes Dementia: No Diabetes: Yes GI Disorders: Yes (Intestinal blockage) Disorders: No HTN: Yes Hypercholesterolemia: No Liver Disease: No Seizures: Yes (last seizure in january 2018) Thyroid Disease: No - Surgical History Abdominal Surgery: Yes (1993 AORTIC ANEURYSM) Appendectomy: Yes Cardiac Surgery: Yes (aortic aneurism repair 95',PM,STENT X 1.) Cholecystectomy: No Lung Surgery: No Neurologic Surgery: No Orthopedic Surgery: Yes (Left 5th toe amputation) - Immunization History Immunization Up to Date: Yes - Suicide/Smoking/Psychosocial Hx Smoking Status: Yes Smoking History: Current every day smoker Have you smoked in the past 12 months: Yes Number of Cigarettes Smoked Daily: 10 If you are a former smoker, when did you quit?: 2MONTHS AGO Information on smoking cessation initiated: No 'Breaking Loose' booklet given: 03/21/16 Hx Alcohol Use: No Drug/Substance Use Hx: No Substance Use Type: None Hx Substance Use Treatment: No Review of Systems - Review of Systems Constitutional: No: Chills, Diaphoresis, Fever, Loss of Appetite HEENTM: No: Eye Pain, Blurred Vision, Tearing Respiratory: No: Cough, Orthopnea, Shortness of Breath Cardiac (ROS): No: Chest Pain, Edema, Irregular Heart Rate ABD/GI: Yes: Rectal Bleeding. No: Diarrhea, Nausea, Vomiting : No: Burning, Dysuria, Discharge, Frequency Musculoskeletal: No: Back Pain, Joint Pain, Joint Swelling, Muscle Pain, Muscle Weakness Integumentary: No: Bruising, Lesions, Lumps, Pallor Neurological: No: Headache, Numbness, Paresthesia, Tingling, Tremors Psychiatric: No: Anxiety, Depression Endocrine: No: Intolerance to Heat Hematologic/Lymphatic: Yes: Easy Bleeding, Easy Bruising *Physical Exam - Vital Signs Last Vital Signs Temp Pulse Resp BP Pulse Ox 97.7 F 70 16 99/54 L 96 09/11/18 05:41 09/11/18 05:41 09/11/18 05:41 09/11/18 05:41 09/11/18 05:41 - Physical Exam General Appearance: Yes: Nourished, Appropriately Dressed. No: Apparent Distress HEENT: positive: EOMI, SHANNAN, Normal ENT Inspection, Normal Voice Neck: positive: Trachea midline, Normal Thyroid, Supple. negative: Tender, Rigid Respiratory/Chest: positive: Lungs Clear, Normal Breath Sounds. negative: Chest Tender, Respiratory Distress, Accessory Muscle Use Cardiovascular: positive: Regular Rhythm, Regular Rate Gastrointestinal/Abdominal: positive: Normal Bowel Sounds, Flat, Soft. negative : Tender Rectal Exam: positive: other (brbpr with clots). negative: normal exam Musculoskeletal: positive: Normal Inspection. negative: Decreased Range of Motion Extremity: positive: Normal Capillary Refill, Normal Inspection, Normal Range of Motion. negative: Tender Integumentary: positive: Normal Color, Dry, Warm Neurologic: positive: Fully Oriented, Alert, Normal Mood/Affect, Normal Response , Motor Strength 5/5 Moderate Sedation - Procedure Monitoring Vital Signs: Procedure Monitoring Vital Signs Temperature 97.7 F 09/11/18 05:41 Pulse Rate 70 09/11/18 05:41 Respiratory Rate 16 09/11/18 05:41 Blood Pressure 99/54 L 09/11/18 05:41 O2 Sat by Pulse Oximetry (%) 96 09/11/18 05:41 ED Treatment Course - LABORATORY CBC & Chemistry Diagram: 09/11/18 06:21 09/11/18 06:21 Medical Decision Making - Medical Decision Making 68 year old male with ESRD due for dialysis on Plavix presenting with BRBPR. VSS with exception of borderline hypotension (systolic high 90s). Patient is mentating well and per his baseline as I've seen this patient in the past. Called [facility] and will consult GI once labs return. Patient signed out to Dr. Hunt pending workup results. 09/11/18 07:28 *DC/Admit/Observation/Transfer Diagnosis at time of Disposition: BRBPR (bright red blood per rectum), ESRD (end stage renal disease) on dialysis - Discharge Dispostion Condition at time of disposition: Fair Decision to Admit order: Yes - Referrals Referrals: Zion Ruth MD [Primary Care Provider] - - Patient Instructions - Post Discharge Activity
--- NOTE | 2018-09-11 06:24 | PDOC ---
Attending Attestation - Resident Resident Name: Giuseppe Reyes - ED Attending Attestation I have performed the following: I have examined & evaluated the patient, The case was reviewed & discussed with the resident, I agree w/resident's findings & plan - HPI HPI: 09/11/18 06:17 68-year-old male with bright red blood per rectum 2 hours. Patient arrived by ambulance from home. He is due for dialysis this morning. There is no associated chest pain or trauma. Patient is a poor historian, when asked his medical problems he states "a bunch". - Physicial Exam PE: 09/11/18 06:19 GENERAL: Awake, for L HEAD: No signs of trauma EYES: ENT:clear without exudates. Moist mucosa NECK: Normal ROM, LUNGS:. Normal work of breathing. HEART: Regular rate and rhythm, ABDOMEN: Soft, nondistended Fresh clots with bright red blood per rectum CHEST WALL: BACK: No midline tenderness. EXTREMITIES:. No erythema, or tenderness NEUROLOGICAL: Alert, SKIN: Warm, Dry - Medical Decision Making 09/11/18 06:20 68-year-old male with bright red blood per rectum and end-stage renal disease Call placed to nephrology on arrival for coordination of dialysis and demonstration of blood products Labs pending Plan is for admission to medical service, likely ICU Impression lower GI bleed End-stage renal disease
[2018-09-11 07:19] LABS: BASO % 0.7 % (0-2.0); EOS % 0.3 % (0-4.5); HEMATOCRIT 25.9 % (35.4-49); HEMOGLOBIN 8.1 GM/dL (11.7-16.9); LYMPH % 3.1 % (8-40); MCH 29.2 pg (25.7-33.7); MCHC 31.2 g/dl (32.0-35.9); MEAN CELL VOLUME 93.8 fl (80-96); MEAN PLT VOLUME 8.8 fl (7.5-11.1); MONO % 5.9 % (3.8-10.2); PLATELET COUNT 243 K/MM3 (134-434); RBC 2.76 M/mm3 (4.00-5.60); RDW 18.4 % (11.9-15.9); WHITE BLOOD COUNT 12.6 K/mm3 (4.0-10.0)
[2018-09-11 07:22] LABS: INR 1.15 (0.83-1.09); PROTHROMBIN TIME (PATIENT) 13.6 SEC (9.7-13.0)
[2018-09-11 07:47] LABS: ALBUMIN 2.1 g/dl (3.4-5.0); ALK PHOS 121 U/L (45-117); ANION GAP 12 MMOL/L (8-16); BILIRUBIN,TOTAL 0.5 mg/dL (0.2-1); BLOOD UREA NITROGEN 45 mg/dL (7-18); CALCIUM 7.6 mg/dL (8.5-10.1); CHLORIDE 104 mmol/L (98-107); CO2 22 mmol/L (21-32); POTASSIUM 4.6 mmol/L (3.5-5.1); SGOT/AST 10 U/L (15-37); SGPT/ALT 7 U/L (13-61); SODIUM 137 mmol/L (136-145); TOT PROT 5.2 g/dl (6.4-8.2)
[2018-09-11 07:52] LABS: GLUCOSE,RANDOM 427 mg/dL (74-106)
--- NOTE | 2018-09-11 08:33 | PDOC ---
*Physical Exam - Vital Signs Last Vital Signs Temp Pulse Resp BP Pulse Ox 97.7 F 67 16 88/42 L 98 09/11/18 05:41 09/11/18 08:14 09/11/18 05:41 09/11/18 08:14 09/11/18 07:45 - Physical Exam Comments: 09/11/18 08:30 GENERAL: Awake, alert, and fully oriented, in no acute distress HEAD: No signs of trauma, normocephalic, atraumatic EYES: PERRLA, EOMI, sclera anicteric, conjunctiva clear ENT: Auricles normal inspection, hearing grossly normal, nares patent, oropharynx clear without exudates. Moist mucosa NECK: Normal ROM, supple, no lymphadenopathy, JVD, or masses LUNGS: No distress, speaks full sentences, clear to auscultation bilaterally HEART: Regular rate and rhythm, normal S1 and S2, no murmurs, rubs or gallops, peripheral pulses normal and equal bilaterally. ABDOMEN: Soft, nontender, normoactive bowel sounds. No guarding, no rebound. No masses EXTREMITIES : Normal inspection, Normal range of motion, no edema. No clubbing or cyanosis. NEUROLOGICAL: Cranial nerves II through XII grossly intact. Normal speech, no focal sensorimotor deficits SKIN: Warm, Dry, normal turgor, no rashes or lesions noted ED Treatment Course - LABORATORY CBC & Chemistry Diagram: 09/11/18 06:21 09/11/18 06:21 - ADDITIONAL ORDERS Additional order review: Laboratory Results 09/11/18 09/11/18 09/11/18 06:21 06:21 06:21 PT with INR 13.60 H INR 1.15 H Sodium 137 Potassium 4.6 Chloride 104 Carbon Dioxide 22 Anion Gap 12 BUN 45 H Creatinine 4.0 H Creat Clearance w eGFR 14.92 Random Glucose 427 H* Calcium 7.6 L Total Bilirubin 0.5 AST 10 L ALT 7 L Alkaline Phosphatase 121 H Troponin I 0.13 H Total Protein 5.2 L Albumin 2.1 L Blood Type O POSITIVE Antibody Screen Negative 09/11/18 06:21 RBC 2.76 L MCV 93.8 MCHC 31.2 L RDW 18.4 H MPV 8.8 Neutrophils % 90.0 H Lymphocytes % 3.1 L Monocytes % 5.9 Eosinophils % 0.3 Basophils % 0.7 Medical Decision Making - Medical Decision Making 09/11/18 08:30 68 yo M with h/o DM, ESRD ( HDS ~,,), NC, Pacmaker, CHF, CVA, Afib ( on Plavix), who p/w BRBPR and clotting x 2 hours. Denies abdominal pain, N/V, F/C/ . BP 99/54, vitals otherwise wnl, AF, A&Ox3. Evaluating for source of UGI vs LGI bleed. No abdominal pain, N/V, F/C. Will consider LGI source, diverticulitis , colon ca., IBD, hemorrhoids. Received signout from Dr. Reyes Pending GI consult Ed Course: Lactic Acid, Blood Cx., Protonix 09/11/18 08:32 WBC: 12.6 Plt: 243 H/H 8.1/25.9 ( 13/40.6 ~09/03/2018) BUN/Cr: 45/4.0 (baseline) Trop: 0.13(baseline) INR: 1.15 EKG: Ventiricular paced rhythm. No acute CLAIRE, STD. HR 69. QT/QTc 496/531 09/11/18 10:10 Patient endorsed and accepted to ICU. Dr. Ellis. Patient endorsed to Dr. Coe. Consulted Sujatha Villavicencio. will come evaluate. Start on Protonix gtt. *DC/Admit/Observation/Transfer Diagnosis at time of Disposition: BRBPR (bright red blood per rectum), ESRD (end stage renal disease) on dialysis , Hemorrhage requiring transfusion - Discharge Dispostion Condition at time of disposition: Fair Decision to Admit order: Yes - Referrals Referrals: Zino Ruth MD [Primary Care Provider] - - Patient Instructions - Post Discharge Activity
[2018-09-11] MEDS ORDERED: SODIUM CHLORIDE 2,313 ML IV ONE (08:37)
[2018-09-11] MEDS ORDERED: PANTOPRAZOLE SODIUM 40 MG VIAL IVPUSH ONE (08:38)
[2018-09-11] MEDS ORDERED: PANTOPRAZOLE SODIUM 40 MG VIAL ONE ×2 (08:58→10:42)
[2018-09-11] MEDS: PANTOPRAZOLE SODIUM 80 MG in SODIUM CHLORIDE 100 ML IVPB SCH ×2 (10:46→20:33)
[2018-09-11] MEDS ORDERED: INSULIN SLIDING SCALE (NOVOLOG) 1 VIAL SQ SCH (11:00)
--- NOTE | 2018-09-11 11:30 | HP ---
CHIEF COMPLAINT: bright red blood per rectum PCP: Dr. Ruth Svp [employer] Cooking: Dr. Lupe Mayo Supervisor Train Operations: Dr. Thomsa Vascular surgeon: Dr. Gan Source: patient poor historian with limitation recollection of prior history, Obtained from Lizbeth on phone and Records. HISTORY OF PRESENT ILLNESS: 68 yom with PMHx of ESRD on HD (for last 6 months) via left permacath(Unable to use right arm AV fistula), CAD s/p NSTEMI/PCI (11/2014 rota and GIOVANNI to pLAD, residual dLCx and ramus 50-60% both), Systolic/diastolic HF, ischemic cardiomyopathy, s/p PPM ([employer] 05/2012), IDDM, HTN, HLD, Severe MR/TR/Pul HTN per last echo, h/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, CVA, afib, was on Coumadin, taken off after GIB/?Aortoenteric fistulam, remote AAA repair, pad s/p left fem stent 2015 and left toe amp woke up around 5 am and notice 2 cupful of bright red blood per rectum with clots associated with dizziness and weakness that prompted him to come to the ED. Patient denies any fevers, chills, abdominal pain or cramps, diarrhea, changes on bowels, constipation, recent NSAIDs use, prior known history of gastric ulcer /Diverticulosis. Last colonoscopy 'years' ago with Dr. Ureña per . Per patient, h/o GIB 3 years ago, unclear of details. ER course was notable for: (1) Hb 8 from 13 on 09/03/2018, receiving PRBC (2)SBP 80s (3)rectal exam with bright red blood with clots Recent Travel: Denies PAST MEDICAL HISTORY: ESRD on HD (for last 6 months) via left permacath(Unable to use right arm AV fistula), CAD s/p NSTEMI/PCI (11/2014 rota and GIOVANNI to pLAD, residual dLCx and ramus 50-60% both), Systolic/diastolic HF, ischemic cardiomyopathy, s/p PPM (biotronik 05/2012), IDDM, HTN, HLD, Severe MR/TR/Pul HTN per last echo, h/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, CVA, afib, was on Coumadin, taken off after GIB/?Aortoenteric fistulam, remote AAA repair, pad s/p left fem stent 2015 and left toe amp PAST SURGICAL HISTORY: As above, also Appendectomy, SBO with lysis of adhesions , right arm AV fistula, left permacath Social History: Smokin/2 PPD, 50 years smoking, was 1 PPD, recently cut down to 1/2 PPD Alcohol: Denies Drugs: Denies 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 Family History: Reviewed and found to be non contributory Allergies No Known Drug Allergies Allergy (Verified 09/11/18 05:52) HOME MEDICATIONS: Home Medications Medication Instructions Recorded Atorvastatin Ca [Lipitor] 40 mg PO DAILY 02/27/16 Clopidogrel Bisulfate [Plavix -] 75 mg PO DAILY #30 tablet 03/24/16 Calcium Acetate [Phoslo -] 667 mg PO TIDCM #90 capsule 12/08/17 Metoprolol Succinate [Toprol XL -] 50 mg PO BID #60 tab.sr.24h 12/08/17 hydrALAZINE HCL [Apresoline -] 50 mg PO TID #90 tablet 12/08/17 Diltiazem Cd [Cardizem Cd -] 240 mg PO DAILY 03/06/18 Insulin Aspart [Novolog Flexpen] 1 unit SQ ACHS 09/11/18 Insulin Detemir [Levemir Flextouch] 12 unit SQ DAILY 09/11/18 REVIEW OF SYSTEMS CONSTITUTIONAL: Absent: fever, chills, diaphoresis, malaise, loss of appetite, weight change Present: generalized weakness, HEENT: Absent: rhinorrhea, nasal congestion, throat pain, throat swelling, difficulty swallowing, mouth swelling, ear pain, eye pain, visual changes CARDIOVASCULAR: Absent: chest pain, syncope, palpitations, irregular heart rate, lightheadedness , peripheral edema RESPIRATORY: Absent: cough, shortness of breath, dyspnea with exertion, orthopnea, wheezing, stridor, hemoptysis GASTROINTESTINAL: Absent: abdominal pain, abdominal distension, nausea, vomiting, diarrhea, constipation, melena, Present: hematochezia GENITOURINARY: Absent: dysuria, frequency, urgency, hesitancy, hematuria, flank pain, genital pain MUSCULOSKELETAL: Absent: myalgia, arthralgia, joint swelling, back pain, neck pain SKIN: Absent: rash, itching, pallor HEMATOLOGIC/IMMUNOLOGIC: Absent: easy bleeding, easy bruising, lymphadenopathy, frequent infections ENDOCRINE: Absent: unexplained weight gain, unexplained weight loss, heat intolerance, cold intolerance NEUROLOGIC: Absent: headache, focal weakness, dizziness, unsteady gait, seizure, mental status changes, bladder or bowel incontinence Present: right arm paresthesias and lack of co-ordination since her AV fistula repair PSYCHIATRIC: Absent: anxiety, depression, suicidal or homicidal ideation, hallucinations. PHYSICAL EXAMINATION Vital Signs - 24 hr 09/11/18 09/11/18 09/11/18 05:41 07:05 07:45 Temperature 97.7 F Pulse Rate 70 Pulse Rate [ 65 Apical] Respiratory 16 Rate Blood Pressure 99/54 L Blood Pressure 90/61 [Right Arm] O2 Sat by Pulse 96 98 98 Oximetry (%) 09/11/18 09/11/18 09/11/18 08:14 09:15 10:00 Temperature 98.0 F 97.3 F L Pulse Rate Pulse Rate [ 67 90 83 Apical] Respiratory 18 18 Rate Blood Pressure Blood Pressure 88/42 L 107/47 L 123/54 L [Right Arm] O2 Sat by Pulse 99 98 Oximetry (%) 09/11/18 10:15 Temperature 98.0 F Pulse Rate Pulse Rate [ 76 Apical] Respiratory 18 Rate Blood Pressure Blood Pressure 112/91 [Right Arm] O2 Sat by Pulse 99 Oximetry (%) GENERAL: Awake, alert, and fully oriented, in no acute distress, weak looking. HEAD: Normal with no signs of trauma. EYES: Pupils equal, round and reactive to light, extraocular movements intact, sclera anicteric, conjunctiva clear. No lid lag. Positive pallor EARS, NOSE, THROAT: Ears normal, nares patent, oropharynx clear without exudates. Moist mucous membranes. NECK: Normal range of motion, supple, no JVD, or masses. LUNGS: Breath sounds equal, clear to auscultation bilaterally. No wheezes, and no crackles. No accessory muscle use. HEART: S1S2 regular ABDOMEN: Soft, nontender, not distended, normoactive bowel sounds, no guarding, no rebound, no masses. No hepatomegaly or splenomegaly. RECTAL: Dried blood around the meatus, brownish with active blood or clots currently, no perirectal erythema or discharge noted MUSCULOSKELETAL: Normal range of motion at all joints. No bony deformities or tenderness. No CVA tenderness. Extremities: no edema or swelling, well perfused NEUROLOGICAL: AAOX3, facial symmetry, tongue midline, power 5/5 except right hand with 4/5 and lack of co-ordination(states from prior AV fistula repair), sensation intact to light tough, PSYCHIATRIC: Cooperative. Good eye contact. Appropriate mood and affect. SKIN: Warm, dry, normal turgor, no rashes or lesions noted, normal capillary refill. Laboratory Results - last 24 hr 09/11/18 09/11/18 09/11/18 06:21 06:21 06:21 WBC 12.6 H RBC 2.76 L Hgb 8.1 L Hct 25.9 L D MCV 93.8 MCH 29.2 MCHC 31.2 L RDW 18.4 H Plt Count 243 MPV 8.8 Absolute Neuts (auto) 11.4 H Neutrophils % 90.0 H Lymphocytes % 3.1 L Monocytes % 5.9 Eosinophils % 0.3 Basophils % 0.7 Nucleated RBC % 0 PT with INR 13.60 H INR 1.15 H Sodium 137 Potassium 4.6 Chloride 104 Carbon Dioxide 22 Anion Gap 12 BUN 45 H Creatinine 4.0 H Creat Clearance w eGFR 14.92 Random Glucose 427 H* Lactic Acid Calcium 7.6 L Total Bilirubin 0.5 AST 10 L ALT 7 L Alkaline Phosphatase 121 H Troponin I 0.13 H Total Protein 5.2 L Albumin 2.1 L Stool Occult Blood Blood Type Antibody Screen Crossmatch 09/11/18 09/11/18 09/11/18 06:21 09:19 10:00 WBC RBC Hgb Hct MCV MCH MCHC RDW Plt Count MPV Absolute Neuts (auto) Neutrophils % Lymphocytes % Monocytes % Eosinophils % Basophils % Nucleated RBC % PT with INR INR Sodium Potassium Chloride Carbon Dioxide Anion Gap BUN Creatinine Creat Clearance w eGFR Random Glucose Lactic Acid 1.2 Calcium Total Bilirubin AST ALT Alkaline Phosphatase Troponin I Total Protein Albumin Stool Occult Blood Positive Blood Type O POSITIVE Antibody Screen Negative Crossmatch See Detail EKG V-pacing CXR images reviewed, ?Right basilar air space disease, follow up official report ASSESSMENT/PLAN: 68 yom with PMHx of ESRD on HD (for last 6 months) via left permacath(Unable to use right arm AV fistula), CAD s/p NSTEMI/PCI (11/2014 rota and GIOVANNI to pLAD, residual dLCx and ramus 50-60% both), Systolic/diastolic HF, ischemic cardiomyopathy, s/p PPM (biotronik 05/2012), IDDM, HTN, HLD, Severe MR/TR/Pul HTN per last echo, h/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, CVA, afib, was on Coumadin, taken off after GIB/?Aortoenteric fistulam, remote AAA repair, pad s/p left fem stent 2015 and left toe amp admitted with hematochezia and hemodynamic instability -Acute Gastrointestinal haemorrhage with hemodynamic instability, h/o ?GIB with aortoenteric fistula, r/o diverticular bleed/mass, low suspicion for upper GI bleed -Acute blood loss anemia -Hypotension, from above -ESRD on HD via left permacath -CAD/ischemic cardiomyopathy, s/p PCI (last reported in 2014), s/p PPM ( [employer] 2011) -PAD s/p left fem pop bypass, left toe amputation -IDDM, poorly controlled per -H/o CVA -Afib, not on AC (given h/o GIB as above) -Remote AAA repair PLan: Tranfuse 2-3 units PRBC, monitor h/h. 2 large bore IVs. GI consulted from ED, recommend protonix drip. Charts reviewed, h/o GIB, ?Aortoenteric fistula. Discussed with ED, plan for CTA abdomen stat. Vascular surgery input. Interventional radiology/Surgery input based on CTA results and ongoing bleed concerns in case needs IR guided embolization vs surgical intervention. Hold plavix, cardiology consult Dr Thomas. consulted for HD (patient with permacath, reportedly non functional right arm AV fistula) CXR with ?Right basilar airspace disease, follow up official read, HD per renal , monitor clinically for new respiratory symptoms. Hold anti-hypertensives. BGM/ISS/NPO DVTPPX SCDs Code status: full Disposition: ICU monitoring. Plan discussed with patient at bedside and Lizbeth on phone in detail, all questions answered. Care co-ordinated with ED, nursing. Total critical care time spent 55 min. Visit type - Emergency Visit Emergency Visit: Yes ED Registration Date: 09/11/18 Care time: The patient presented to the Emergency Department on the above date and was hospitalized for further evaluation of their emergent condition. - New Patient This patient is new to me today: Yes Date on this admission: 09/11/18 - Critical Care Critical Care patient: Yes Total Critical Care Time (in minutes): 55 Critical Care Statement: The care of this patient involved high complexity decision making to prevent further life threatening deterioration of the patient 's condition and/or to evaluate & treat vital organ system(s) failure or risk of failure.
--- NOTE | 2018-09-11 11:48 | CON.CARD ---
Consult Consult Specialty:: Cardiology Referred by:: Saravanan Reason for Consultation:: CAD, afib - History of Present Illness Chief Complaint: GIB History of Present Illness: 68M ESRD on HD, CAD s/p NSTEMI/PCI (11/2014 rota and GIOVANNI to pLAD, residual dLCx and ramus 50-60% both), Systolic/diastolic HF, ischemic cardiomyopathy, s/p PPM (biotronik 05/2012), IDDM, HTN, HLD, Severe MR/TR/Pul HTN, h/o GIB ?aorto- enteric fistula, CVA, afib, was on Coumadin, taken off after GIB/?Aortoenteric fistula remote AAA repair, pad s/p left fem stent 2015 and left toe amp p/w BRBPR. Noticed blood in stool, clots, dizziness, around 5 AM this morning. Has been on plavix. In the ER Hb 12-> 8 with hypotension, received PRBC. BP stable. currently no cp, palps, dizziness, lightheadedness, dyspnea, edema. Sees Dr. Thomas for cardio. - Past Medical History Cardio/Vascular: Yes: AFIB, CAD, HTN Gastrointestinal: Yes: Other (Left inguinal hernia. Small bowel obstruction) Renal/: Yes: Renal Inusuff (chronic) Endocrine: Yes: Diabetes Mellitus - Past Surgical History Past Surgical History: Yes: AAA Repair, Appendectomy, Colectomy (partial with lysis of adhesions), Permanent Pacemaker - Alcohol/Substance Use Hx Alcohol Use: No History of Substance Use: reports: None - Smoking History Smoking history: Current every day smoker Have you smoked in the past 12 months: Yes Aproximately how many cigarettes per day: 10 If you are a former smoker, when did you quit?: 2MONTHS AGO - Social History Usual Living Arrangement: With Spouse ADL: Independent Occupation: Works in a [employer] History of Recent Travel: No Home Medications - Allergies Allergies/Adverse Reactions: Allergies Allergy/AdvReac Type Severity Reaction Status Date / Time No Known Drug Allergies Allergy Verified 09/11/18 05:52 - Home Medications Home Medications: Ambulatory Orders Atorvastatin Ca [Lipitor] 40 mg PO DAILY 02/27/16 Clopidogrel Bisulfate [Plavix -] 75 mg PO DAILY #30 tablet 03/24/16 Calcium Acetate [Phoslo -] 667 mg PO TIDCM #90 capsule 12/08/17 Metoprolol Succinate [Toprol XL -] 50 mg PO BID #60 tab.sr.24h 12/08/17 hydrALAZINE HCL [Apresoline -] 50 mg PO TID #90 tablet 12/08/17 Diltiazem Cd [Cardizem Cd -] 240 mg PO DAILY 03/06/18 Insulin Aspart [Novolog Flexpen] 1 unit SQ ACHS 09/11/18 Insulin Detemir [Levemir Flextouch] 12 unit SQ DAILY 09/11/18 Tamsulosin HCl [Flomax] 0.4 mg PO HS 09/11/18 Family Disease History - Family Disease History Family History: Unremarkable Family Disease History: Diabetes: Father Review of Systems - Review of Systems Constitutional: reports: No Symptoms Eyes: reports: No Symptoms HENT: reports: No Symptoms Neck: reports: No Symptoms Cardiovascular: reports: No Symptoms Respiratory: reports: No Symptoms Gastrointestinal: reports: Rectal Bleeding Genitourinary: reports: No Symptoms Musculoskeletal: reports: No Symptoms Integumentary: reports: No Symptoms Neurological: reports: Weakness Endocrine: reports: No Symptoms Hematology/Lymphatic: reports: No Symptoms Psychiatric: reports: No Symptoms Vital Signs: Vital Signs Temperature 98.0 F 09/11/18 10:15 Pulse Rate 76 09/11/18 10:15 Respiratory Rate 18 09/11/18 10:15 Blood Pressure 112/91 09/11/18 10:15 O2 Sat by Pulse Oximetry (%) 99 09/11/18 10:15 Constitutional: Yes: Well Nourished, No Distress, Calm Eyes: Yes: Conjunctiva Clear, EOM Intact HENT: Yes: Atraumatic, Normocephalic Neck: Yes: Supple, Trachea Midline Respiratory: Yes: Regular, CTA Bilaterally Gastrointestinal: Yes: Normal Bowel Sounds, Soft Cardiovascular: Yes: Regular Rate and Rhythm JVD: No Carotid Bruit: No PMI: Non-Displaced Heart Sounds: Yes: S1, S2 Musculoskeletal: No: Back Pain Extremities: No: Cold Edema: No Peripheral Pulses WNL: Yes Peripheral Pulses: 2+ Left Carotid, 2+ Right Carotid, 2+ Left Doralis Pedis, 2+ Right Dorsalis Pedis Integumentary: No: Jaundice Neurological: Yes: Alert, Oriented Psychiatric: No: Agitated - Other Data Labs, Other Data: CBC, BMP 09/11/18 06:21 01/22/19 06:21 INR, PTT INR 1.15 (0.83-1.09) H 09/11/18 06:21 Troponin, BNP 09/11/18 06:21 Troponin I 0.13 H Troponin, BNP 09/11/18 06:21 Troponin I 0.13 H Assessment/Plan echo 10/2017: moderate concentric lvh. 1+ lve. mod-sev decreased LV sys fn, global. nl RV size. mod decreased RV sys fn. mod mitra. mod-sev mac. mod mr. mod-sev tr. rvsp > 60. trivial effusion. echo 11/2016: low nl lvef, mild lvh, nl rv, mitra, mod mr/tr, mod phtn mibi 11/2016: no ischemia EKG: V paced a/p: 68 m hx cad s/p nstemi/pci (11/2014 pt had chf with +trops so sent for cath MSH and had rota and GIOVANNI to pLAD, residual dLCx and ramus 50-60% both), dchf, htn, hld, dm, ckd, afib (plavix monotherapy, prior GIB on coumadin) cva, ppm ( [employer] 05/2012), remote AAA repair, pad s/p left fem stent 2015 and left toe amp here with GI bleed GI bleed, hypotension - receiving PRBC, manage per GI, primary - holding plavix Chronic systolic HF, ischemic cardiomyopathy - HD for volume removal, currently appears euvolemic - holding home BB/Hydralazine for hypotension cad/pci: -stable, no cp/angina/acs -preserved lvef echo 2016 and no ischemia on 2017 mibi -holding home meds for GI bleed, including plavix htn: -holding bb, hydral, hypotensive hld: -holding statin afib,aflutter,atach: -rate controlled as pt has complete heart block with ppm -has hx of cva and was on AC and dapt previously before a prior GIB, and aortoenteric fistula. was followed by vascular at [facility], now by Dr. Gan. DAPT was deemed safe to resume in 2015 after LE stent. was on plavix monotherapy reportedly at home - now holding plavix for GI bleed VTach: - noted on prior admission while on milrinone - holding bb, monitor on tele ppm ([employer] for [facility]): -outpatient monitoring remote aaa repair/pad s/p multiple interventions and toe amputations : -holding plavix, statin ESRD on HD - manage per renal
--- NOTE | 2018-09-11 11:50 | CONSULT ---
Consult Consult Specialty:: Pulm/CCM Referred by:: ER team Reason for Consultation:: GI bleed - History of Present Illness Chief Complaint: bright red blood per rectum History of Present Illness: 68M history of multiple medical problems including ESRD on HD , , Mon, being dialyzed VIA left subclavian permacath due to malfunctioning of fistula, CAD s/p NSTEMI PCI, combined systolic diastolic CHF, ischemic cardiomyopathy s/ p PPM, DM, HTN, HLD, Severe Mitral regurgitation, Tricuspid regurgitation, Pulmonary hypertension, questionable history of aortoenteric fistula, AAA repair , presents to the hospital after having an episode of BRBPR at home. Patient states he was unable to make it to the bathroom and felt a warm gush in his pants and noticed it was red blood. Patient is on plavix, and he denies NSAID use. He denies nausea vomiting, fever, chills, chest pain, SOB, dizziness, lightheadedness, visual changes, or urinary symptoms. He denies abdominal pain or ramping. Denies rectal pain. On laboratory assessment his Hb is 8.1 which is much lower than his previous hemoglobins of 11-12. He also has a mild troponinemia. - History Source History Provided By: Patient, Medical Record Limitations to Obtaining History: Clinical Condition - Past Medical History Cardio/Vascular: Yes: AFIB, CAD, HTN Gastrointestinal: Yes: Other (Left inguinal hernia. Small bowel obstruction) Renal/: Yes: Renal Inusuff (chronic) Endocrine: Yes: Diabetes Mellitus Additional Medical History: ESRD on HD. CAD. h/o NSTEMI. combined systolic/ distolic CHF s/p PPM. ischemic cardiomyopathy. DM. HTN. HLD. Mitral regurgitation. tricuspid regurgitation. pulmonary HTN. AAA s/p repair - Past Surgical History Past Surgical History: Yes: AAA Repair, Appendectomy, Colectomy (partial with lysis of adhesions), Permanent Pacemaker - Alcohol/Substance Use Hx Alcohol Use: No History of Substance Use: reports: None - Smoking History Smoking history: Current every day smoker Have you smoked in the past 12 months: Yes Aproximately how many cigarettes per day: 10 - Social History Usual Living Arrangement: With Spouse ADL: Independent Occupation: Works in a [employer] History of Recent Travel: No Home Medications - Allergies Allergies/Adverse Reactions: Allergies Allergy/AdvReac Type Severity Reaction Status Date / Time No Known Drug Allergies Allergy Verified 09/11/18 05:52 - Home Medications Home Medications: Ambulatory Orders Atorvastatin Ca [Lipitor] 40 mg PO DAILY 02/27/16 Clopidogrel Bisulfate [Plavix -] 75 mg PO DAILY #30 tablet 03/24/16 Calcium Acetate [Phoslo -] 667 mg PO TIDCM #90 capsule 12/08/17 Metoprolol Succinate [Toprol XL -] 50 mg PO BID #60 tab.sr.24h 12/08/17 hydrALAZINE HCL [Apresoline -] 50 mg PO TID #90 tablet 12/08/17 Diltiazem Cd [Cardizem Cd -] 240 mg PO DAILY 03/06/18 Insulin Aspart [Novolog Flexpen] 1 unit SQ ACHS 09/11/18 Insulin Detemir [Levemir Flextouch] 12 unit SQ DAILY 09/11/18 Tamsulosin HCl [Flomax] 0.4 mg PO HS 09/11/18 Family Disease History - Family Disease History Family Disease History: Diabetes: Father Review of Systems - Review of Systems Constitutional: reports: Weakness Eyes: reports: No Symptoms HENT: reports: No Symptoms Neck: reports: No Symptoms Cardiovascular: reports: No Symptoms Respiratory: reports: No Symptoms Gastrointestinal: reports: Rectal Bleeding, Other (occasional clots) Genitourinary: reports: No Symptoms Musculoskeletal: reports: No Symptoms Integumentary: reports: No Symptoms Neurological: reports: No Symptoms Endocrine: reports: No Symptoms Physical Exam Vital Signs: Vital Signs Temperature 98.0 F 09/11/18 10:15 Pulse Rate 76 09/11/18 10:15 Respiratory Rate 18 09/11/18 10:15 Blood Pressure 112/91 09/11/18 10:15 O2 Sat by Pulse Oximetry (%) 99 09/11/18 10:15 Constitutional: Yes: No Distress, Calm Eyes: Yes: EOM Intact, Other (conjunctival pallor) HENT: Yes: Atraumatic, Normocephalic Neck: Yes: Supple Cardiovascular: Yes: Regular Rate and Rhythm, Other (paced) Respiratory: Yes: Diminished, Poor Air Entry, Other (poor respiratory effort) Gastrointestinal: Yes: Normal Bowel Sounds, Soft. No: Tenderness ...Rectal Exam: Yes: Guaiac Positive, Other (red blood on glove. no stool in the vault) Edema: No Neurological: Yes: Alert, Oriented Psychiatric: Yes: Alert, Oriented Labs: CBC, BMP 09/11/18 06:21 09/11/18 06:21 Imaging - Results Chest X-ray: Report Reviewed, Image Reviewed EKG: Image Reviewed (Paced) Assessment/Plan 68M with multiple medical problems presents with BRBPR. Problem List: bright red blood per rectum-likely lower GI bleed but UGI bleed not ruled out ESRD on HD mild leukocytosis acute blood loss hypochromic normocytic anemia troponinemia-possible demand Atrial fibrillation questionable history of aortoenteric fistula CAD h/o NSTEMI combined systolic/distolic CHF s/p PPM ischemic cardiomyopathy DM HTN HLD Mitral regurgitation tricuspid regurgitation pulmonary HTN AAA s/p repair Current Active smoker Plan: Admit to ICU for close hemodyanic monitoring transfuse 2 units PRBCs now trend CBC q6h normal transfusion thresholds hold plavix for now while bleeding Nephrology consult - patient to be dialyzed cardiology consult- sees Dr. Thomas GI consult keep NPO Protonix gtt hold statin hold antihypertensives for now can consider DDAVP if patient continues to bleed trend troponins BGM/ISS q6h CCTime 36 minutes Case discussed with Dr. Alvarez
[2018-09-11] MEDS ORDERED: INSULIN (NOVOLOG) ASPART 100 UNITS/ML 10ML VIAL ONE (12:31)
[2018-09-11] MEDS: INSULIN SLIDING SCALE (NOVOLOG) 1 VIAL SQ SCH ×2 (12:35→18:40)
--- NOTE | 2018-09-11 15:18 | CONS ---
DATE OF CONSULTATION: DATE OF DICTATION: 09/11/2018 GASTROENTEROLOGY CONSULTATION Patient is a 68-year-old male with past medical history of end-stage renal disease on hemodialysis, CAD, non-STEMI, PCI, drug-eluting stent, systolic and diastolic heart failure, ischemic cardiomyopathy, pacemaker in 2012, diabetes, hypertension, hyperlipidemia, severe valvular disease, and aortaenteric fistula, CVA, atrial fibrillation, was on Coumadin but was taken off the Coumadin after he developed a GI bleed, also with a remote Triple-A repair, left femoral stent in 2016 who woke up early this morning and noticed he had passed bright red blood per rectum also with associated dizziness and weakness prompting him to come to the emergency room. He denies abdominal pain, melena, nausea, vomiting, hematemesis. Apparently, he also has a history of recent NSAIDs use and history of ulcers and diverticulosis. Last GI bleed was 3 years ago. Last colonoscopy was many years ago with Dr. Ureña as per the family. PAST MEDICAL AND SURGICAL HISTORY: As listed in the HPI with the addition of appendectomy, SBO with lysis of adhesions. ALLERGIES: No known drug allergies. SOCIAL HISTORY: Half a pack per day for 50 years, cut down to half a pack per a day now. Denies alcohol use or drug use. 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 FAMILY HISTORY: Noncontributory. REVIEW OF SYSTEMS: Negative except for pertinent positives in the HPI. HOME MEDICATIONS: Reviewed and include Lipitor, Plavix, PhosLo, Toprol, , Cardizem, NovoLog, and Levemir. REVIEW OF SYSTEMS: Negative except for pertinent positives in the HPI. PHYSICAL EXAMINATION: Vital Signs: Temperature 97, pulse 100, blood pressure 103/75, respiratory rate 12, pulse oximetry 98% on 2 L. General: No acute distress. HEENT: Anicteric sclerae. Cardiovascular: S1, S2. Regular rate and rhythm. Lungs: Bilaterally clear to auscultation. Abdomen: Soft and nontender. Extremities: No edema. LABORATORIES: White blood cell count 12.6, hemoglobin and hematocrit 8.1/25, previously he had a hemoglobin above 10, MCV is 93, platelet count 243. INR 1.1. Sodium 137, potassium 4.6. BUN/creatinine 45/4. Glucose 427. Lactic acid 1.2. AST 10, ALT 7, alkaline phosphatase 121. Troponin 0.13. He had a chest x-ray in the ER which did not reveal any infiltrates or vascular changes. IMPRESSION: Hematochezia most likely secondary to a lower gastrointestinal source such as diverticulosis, however, upper gastrointestinal source cannot be completely excluded in this patient considering he has history of peptic ulcer disease and has used nonsteroidal antiinflammatory drugs. At this time, there is no sign of an overt gastrointestinal bleed. He is hemodynamically stable. RECOMMENDATION: N.p.o. IV fluids. Transfuse packed RBCs as per hemoglobin of 10 or better. Avoid NSAIDs. Trend hemoglobin and hematocrit q.8 hours. Protonix infusion. I will discuss with Dr. Ureña regarding plan of care and endoscopic evaluation. DO GELACIO CHIANG/[id number]
--- NOTE | 2018-09-11 15:45 | CONSULT ---
Consult - text type - Consultation Consultation Note: Renal Consult for ESRD with GI bleed This is a 68 year old gentleman with hx of ESRD on HD, CAD s/p PCI, CHF, PPM, HTN, DM, CVA, Afib, who presented with rectal bleeding with bright red blood and clots with acute anemia. Pt last had dialysis on Monday. Pt denies any sob, cp, abd pain. Pt still makes urine. No Fever or chills. PMhx: as above Allergies: NKDA Family hx: NC Social hx: no T/A/D ROS: as per HPI Home Medications Medication Instructions Recorded Atorvastatin Ca [Lipitor] 40 mg PO DAILY 02/27/16 Clopidogrel Bisulfate [Plavix -] 75 mg PO DAILY #30 tablet 03/24/16 Calcium Acetate [Phoslo -] 667 mg PO TIDCM #90 capsule 12/08/17 Metoprolol Succinate [Toprol XL -] 50 mg PO BID #60 tab.sr.24h 12/08/17 hydrALAZINE HCL [Apresoline -] 50 mg PO TID #90 tablet 12/08/17 Diltiazem Cd [Cardizem Cd -] 240 mg PO DAILY 03/06/18 Insulin Aspart [Novolog Flexpen] 1 unit SQ ACHS 09/11/18 Insulin Detemir [Levemir Flextouch] 12 unit SQ DAILY 09/11/18 Tamsulosin HCl [Flomax] 0.4 mg PO HS 09/11/18 Vital Signs Temperature 98.4 F 09/11/18 15:09 Pulse Rate 79 09/11/18 15:09 Respiratory Rate 16 09/11/18 15:09 Blood Pressure 119/63 09/11/18 15:09 O2 Sat by Pulse Oximetry (%) 98 09/11/18 13:45 Intake & Output 09/08/18 09/09/18 09/10/18 09/11/18 23:59 23:59 23:59 23:59 Weight 77.111 kg NAD awake and alert neck supple RRR Dec BS, no rales soft NT/ND no LE edema, clubbing or cyanosis CBC, BMP 09/11/18 06:21 09/11/18 06:21 Current Medications Chlorhexidine Gluconate (Hibiclens For Decolonization -) 1 applic TP HS [facility] Epoetin Romeo (Epogen -) 20,000 unit IVPUSH ONCE ONE Stop: 09/11/18 10:36 Pantoprazole Sodium 80 mg/ (Sodium Chloride) 100 mls @ 10 mls/hr IVPB Q10H [facility] Last Admin: 09/11/18 10:46 Dose: 10 mls/hr Sodium Chloride (Normal Saline -) 250 mls @ 3,000 mls/hr IV PRN PRN PRN Reason: Hypotension during Dialysis Stop: 09/12/18 10:35 Insulin Aspart (Novolog Vial Sliding Scale -) 1 vial SQ Q6HPO [facility]; Protocol Last Admin: 09/11/18 12:35 Dose: 10 units Mupirocin (Bactroban Ointment (For Decolonization) -) 1 applic NS BID DAGO Stop: 09/16/18 21:59 68 year old gentleman with hx of ESRD on HD, CAD s/p PCI, CHF, PPM, HTN, DM, CVA, Afib, who presented with rectal bleeding with bright red blood and clots with acute anemia. #Acute GIB #ESRD on HD #Acute Anemia #hx of CHF Hgb noted to fall from 12 to 8 within the last week s/p PRBC transfused off dialysis will repeat CBC at start of HD, if HGb < 8.5 will transfuse PRBC as pt with active GIB will give Epogen with HD UF as needed with DH to maintain evolemia BP ok, would hold anithypertensives for now f/u CTA to r/o enteroaortic fistula Thank you Beau Iraheta DO
--- NOTE | 2018-09-11 16:15 | PN ---
Progress Note (short form) - Note Progress Note: GI NOte: GI Consultation already done by Dr Garzon. Discussed CTA with Dr Davis, there is no obvious active bleed or evidence of an aortoduodenal fistula. I have discussed this with Eugenio and his . I have advised an EGD and enteroscopy for tomorrow and a colonoscopy on 09/14. I have discussed the procedures in detail including informing them of the potential for such complications as perforation and hemorrhage. He has given horton as his signature consenting for both ( he cannot sign due to right hand weakness associated with his AV fistula malfunction). I have coordinated the dialysis with Dr. Beau Iraheta. I will allow clear liquids.
--- NOTE | 2018-09-11 16:26 | EKG ---
Test Reason : Blood Pressure : / mmHG Vent. Rate : 069 BPM Atrial Rate : 208 BPM P-R Int : 000 ms QRS Dur : 194 ms QT Int : 496 ms P-R-T Axes : 000 -79 098 degrees QTc Int : 531 ms Ventricular-paced rhythm ABNORMAL ECG WHEN COMPARED WITH ECG OF 03-SEP-2018 13:42, NO SIGNIFICANT CHANGE WAS FOUND Confirmed by MD DINA, NAE ([id number]) on 09/11/2018 4:25:40 PM Referred By: Confirmed By:NAE ARROYO MD
--- NOTE | 2018-09-11 16:37 | CONSULT ---
<Lucero Cruz - Last Filed: 09/11/18 16:39> - Consultation REQUESTING PROVIDER: CONSULT REQUEST: We have been asked to surgically evaluate this patient for Aortoenteric fistula in patient with acute GI bleed. PCP:Sofya oCe MD - History of Present Illness 68 year old male with PMH of DM, ESRD (T, Th, Sat- last dialysis friday 09/08) , [place], CHF, CVA, afib on plavix presented with BRBPR that began around 5am this morning. Patient states that he woke up with a strange sensation in his pants and noticed a lot of clots and bright blood. 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 Patient states he was feeling fine and eating/ drinking regularly leading up to the event. He denies any recent travel , fevers, chills, nausea, vomiting, abdominal pain, chest pain, SOB, or other symptoms. Past History Allergies/Adverse Reactions: Allergies Allergy/AdvReac Type Severity Reaction Status Date / Time No Known Drug Allergies Allergy Verified 09/11/18 05:52 Home Medications: Ambulatory Orders Atorvastatin Ca [Lipitor] 40 mg PO DAILY 02/27/16 Clopidogrel Bisulfate [Plavix -] 75 mg PO DAILY #30 tablet 03/24/16 Calcium Acetate [Phoslo -] 667 mg PO TIDCM #90 capsule 12/08/17 Metoprolol Succinate [Toprol XL -] 50 mg PO BID #60 tab.sr.24h 12/08/17 hydrALAZINE HCL [Apresoline -] 50 mg PO TID #90 tablet 12/08/17 Diltiazem Cd [Cardizem Cd -] 240 mg PO DAILY 03/06/18 Insulin Aspart [Novolog Flexpen] 100 unit SQ ASDIR #1 insuln.pen 03/08/18 Insulin Detemir [Levemir Flextouch] 100 unit SQ HS #1 insuln.pen 03/08/18 Anemia: Yes Asthma: No Cancer: No Cardiac Disorders: Yes (LA X2 2016, Stent, Pacemaker) CVA: Yes (MILD STROKE X2) COPD: Yes (smoker) CHF: Yes Dementia: No Diabetes: Yes GI Disorders: Yes (Intestinal blockage) Disorders: No HTN: Yes Hypercholesterolemia: No Liver Disease: No Seizures: Yes (last seizure in January 2018) Thyroid Disease: No - Surgical History Abdominal Surgery: Yes (1993 AORTIC ANEURYSM repair) Appendectomy: Yes Cardiac Surgery: Yes (aortic aneurism repair 95',PM,STENT X 1.) Cholecystectomy: No Lung Surgery: No Neurologic Surgery: No Orthopedic Surgery: Yes (Left 5th toe amputation) Home Medications Medication Instructions Recorded Atorvastatin Ca [Lipitor] 40 mg PO DAILY 02/27/16 Clopidogrel Bisulfate [Plavix -] 75 mg PO DAILY #30 tablet 03/24/16 Calcium Acetate [Phoslo -] 667 mg PO TIDCM #90 capsule 12/08/17 Metoprolol Succinate [Toprol XL -] 50 mg PO BID #60 tab.sr.24h 12/08/17 hydrALAZINE HCL [Apresoline -] 50 mg PO TID #90 tablet 12/08/17 Diltiazem Cd [Cardizem Cd -] 240 mg PO DAILY 03/06/18 Insulin Aspart [Novolog Flexpen] 1 unit SQ ACHS 09/11/18 Insulin Detemir [Levemir Flextouch] 12 unit SQ DAILY 09/11/18 Tamsulosin HCl [Flomax] 0.4 mg PO HS 09/11/18 Allergies Allergy/AdvReac Type Severity Reaction Status Date / Time No Known Drug Allergies Allergy Verified 09/11/18 05:52 REVIEW OF SYSTEMS: CONSTITUTIONAL: Absent: fever, chills, diaphoresis, generalized weakness, malaise, loss of appetite, weight change CARDIOVASCULAR: Absent: chest pain, syncope, palpitations, irregular heart rate, lightheadedness , peripheral edema RESPIRATORY: Absent: cough, wheezing, hemoptysis GASTROINTESTINAL: Absent: abdominal pain, abdominal distension, nausea, vomiting, diarrhea, constipation, GENITOURINARY: Absent: dysuria, frequency, urgency, hesitancy, hematuria, flank pain, genital pain MUSCULOSKELETAL: Absent: myalgia, arthralgia, SKIN: Absent: rash, itching, pallor HEMATOLOGIC/IMMUNOLOGIC: Absent: easy bleeding, NEUROLOGIC: Absent: headache, focal weakness, paresthesias, mental status changes, bladder or bowel incontinence PSYCHIATRIC: Absent: anxiety, depression, suicidal or homicidal ideation PHYSICAL EXAM: GENERAL: Awake, alert, and fully oriented, in no acute distress. HEAD: Normal with no signs of trauma. EYES: sclera anicteric, conjunctiva clear. LUNGS: No auditory wheezes HEART: Regular rate and rhythm. No murmurs ABDOMEN: Soft, nontender, not distended, well healed scar at midline, no guarding, no rebound, no masses. No organomegaly. LOWER EXTREMITIES: Femoral pulses palpable and equal b/l. Left LE compartments soft, supple and non-tender to palpation, no edema and strong signal with doppler over DP and PT. Right LE compartments soft, supple and non-tender to palpation, no edema and strong signal with doppler over PT, no signal or palpable pulse over DP in right foot. Feel warm to the touch. NEUROLOGICAL: Normal speech, gait not observed. PSYCH: Cooperative. Good eye contact. Appropriate mood and affect. SKIN: Warm, dry, normal turgor, no rashes or lesions noted. Vital Signs Temperature 98.4 F 09/11/18 15:09 Pulse Rate 79 09/11/18 15:09 Respiratory Rate 16 09/11/18 15:09 Blood Pressure 119/63 09/11/18 15:09 O2 Sat by Pulse Oximetry (%) 98 09/11/18 13:45 Lab Results WBC 12.6 K/mm3 (4.0-10.0) H 09/11/18 06:21 RBC 2.76 M/mm3 (4.00-5.60) L 09/11/18 06:21 Hgb 8.1 GM/dL (11.7-16.9) L 09/11/18 06:21 Hct 25.9 % (35.4-49) L D 09/11/18 06:21 MCV 93.8 fl (80-96) 09/11/18 06:21 MCHC 31.2 g/dl (32.0-35.9) L 09/11/18 06:21 RDW 18.4 % (11.9-15.9) H 09/11/18 06:21 Plt Count 243 K/MM3 (134-434) 09/11/18 06:21 Sodium 137 mmol/L (136-145) 09/11/18 06:21 Potassium 4.6 mmol/L (3.5-5.1) 09/11/18 06:21 Chloride 104 mmol/L (98-107) 09/11/18 06:21 Carbon Dioxide 22 mmol/L (21-32) 09/11/18 06:21 Anion Gap 12 MMOL/L (8-16) 09/11/18 06:21 BUN 45 mg/dL (7-18) H 09/11/18 06:21 Creatinine 4.0 mg/dL (0.55-1.3) H 09/11/18 06:21 Random Glucose 427 mg/dL (74-106) H* 09/11/18 06:21 Calcium 7.6 mg/dL (8.5-10.1) L 09/11/18 06:21 Blood Type O POSITIVE 09/11/18 06:21 Antibody Screen Negative 09/11/18 06:21 INR 1.15 (0.83-1.09) H 09/11/18 06:21 CTA of abdomen and pelvis reviewed by Dr Gan which revealed no obvious signs of extravasation from the graft or Arteroenteric fistula. final report pending. Problem List - Problems (1) BRBPR (bright red blood per rectum) Assessment/Plan: 68 male with significant PMHX, acute GI bleed and no evidence of Aortoeroenteric fistula on CTA. 1) Transfuse PRN 2) GI work up- plan for endoscopy and colonoscopy 3) Dialysis per renal 4) vascular to follow Evaluation and plan discussed with Dr Gan Code(s): K62.5 - HEMORRHAGE OF ANUS AND RECTUM <Josh Gan - Last Filed: 09/12/18 15:55> - Consultation REQUESTING PROVIDER: CONSULT REQUEST: We have been asked to surgically evaluate this patient for ( specify). PCP:ADELFO Fair HISTORY OF PRESENT ILLNESS: PMHx: PSHx: Home Medications Medication Instructions Recorded Atorvastatin Ca [Lipitor] 40 mg PO DAILY 02/27/16 Clopidogrel Bisulfate [Plavix -] 75 mg PO DAILY #30 tablet 03/24/16 Calcium Acetate [Phoslo -] 667 mg PO TIDCM #90 capsule 12/08/17 Metoprolol Succinate [Toprol XL -] 50 mg PO BID #60 tab.sr.24h 12/08/17 hydrALAZINE HCL [Apresoline -] 50 mg PO TID #90 tablet 12/08/17 Diltiazem Cd [Cardizem Cd -] 240 mg PO DAILY 03/06/18 Insulin Aspart [Novolog Flexpen] 1 unit SQ ACHS 09/11/18 Insulin Detemir [Levemir Flextouch] 12 unit SQ DAILY 09/11/18 Tamsulosin HCl [Flomax] 0.4 mg PO HS 09/11/18 Allergies Allergy/AdvReac Type Severity Reaction Status Date / Time No Known Drug Allergies Allergy Verified 09/11/18 05:52 REVIEW OF SYSTEMS: CONSTITUTIONAL: Absent: fever, chills, diaphoresis, generalized weakness, malaise, loss of appetite, weight change CARDIOVASCULAR: Absent: chest pain, syncope, palpitations, irregular heart rate, lightheadedness , peripheral edema RESPIRATORY: Absent: cough, shortness of breath, dyspnea with exertion, wheezing, stridor, hemoptysis GASTROINTESTINAL: Absent: abdominal pain, abdominal distension, nausea, vomiting, diarrhea, constipation, melena, hematochezia GENITOURINARY: Absent: dysuria, frequency, urgency, hesitancy, hematuria, flank pain, genital pain MUSCULOSKELETAL: Absent: myalgia, arthralgia, joint swelling, back pain, neck pain SKIN: Absent: rash, itching, pallor HEMATOLOGIC/IMMUNOLOGIC: Absent: easy bleeding, easy bruising, lymphadenopathy NEUROLOGIC: Absent: headache, focal weakness, paresthesias, dizziness, unsteady gait, seizure, mental status changes, bladder or bowel incontinence PSYCHIATRIC: Absent: anxiety, depression, suicidal or homicidal ideation, hallucinations. PHYSICAL EXAM: GENERAL: Awake, alert, and fully oriented, in no acute distress. HEAD: Normal with no signs of trauma. EYES: PERRL, sclera anicteric, conjunctiva clear. NECK: Normal ROM, supple without lymphadenopathy, JVD, or masses. LUNGS: Clear to auscultation bilat anteriorly. No wheezes, and no crackles. No accessory muscle use. HEART: Regular rate and rhythm. No murmurs ABDOMEN: Soft, nontender, not distended, normoactive bowel sounds, no guarding, no rebound, no masses. No organomegaly. MUSCULOSKELETAL: Normal ROM at all joints. No bony deformities or tenderness. No CVA tenderness. UPPER EXTREMITIES: 2+ pulses, warm, well-perfused. No cyanosis. Cap refill <2 seconds. No peripheral edema. LOWER EXTREMITIES: 2+ pulses, warm, well-perfused. No calf tenderness. No peripheral edema. NEUROLOGICAL: Normal speech, gait not observed. PSYCH: Cooperative. Good eye contact. Appropriate mood and affect. SKIN: Warm, dry, normal turgor, no rashes or lesions noted. Vital Signs Temperature 99.4 F 09/12/18 12:00 Pulse Rate 69 09/12/18 14:00 Respiratory Rate 18 09/12/18 14:00 Blood Pressure 109/59 L 09/12/18 14:00 O2 Sat by Pulse Oximetry (%) 100 09/12/18 09:00 Lab Results WBC 10.1 K/mm3 (4.0-10.0) H 09/12/18 05:30 RBC 2.84 M/mm3 (4.00-5.60) L 09/12/18 05:30 Hgb 8.7 GM/dL (11.7-16.9) L 09/12/18 05:30 Hct 25.6 % (35.4-49) L 09/12/18 05:30 MCV 90.1 fl (80-96) 09/12/18 05:30 MCHC 34.1 g/dl (32.0-35.9) 09/12/18 05:30 RDW 16.1 % (11.9-15.9) H 09/12/18 05:30 Plt Count 200 K/MM3 (134-434) 09/12/18 05:30 Sodium 140 mmol/L (136-145) 09/12/18 05:30 Potassium 3.5 mmol/L (3.5-5.1) 09/12/18 05:30 Chloride 103 mmol/L (98-107) 09/12/18 05:30 Carbon Dioxide 27 mmol/L (21-32) 09/12/18 05:30 Anion Gap 10 MMOL/L (8-16) 09/12/18 05:30 BUN 20 mg/dL (7-18) H 09/12/18 05:30 Creatinine 2.2 mg/dL (0.55-1.3) H 09/12/18 05:30 Random Glucose 164 mg/dL (74-106) H 09/12/18 05:30 Calcium 7.0 mg/dL (8.5-10.1) L 09/12/18 05:30 Blood Type O POSITIVE 09/11/18 06:21 Antibody Screen Negative 09/11/18 06:21 INR 1.11 (0.83-1.09) H 09/12/18 05:30 History reviewed and patient examined. Remote history of open AAA repair with episode of lower GI bleeding today. Abd is soft and non-tender CTA does not suggest enteric fistula. Imp: LGI Bleed, probably diverticular. Aorto-enteric fistula is unlikely. Rec: Upper endoscopy to look for duodenal erosion. If bleeding recurs bleeding scan would be indicated.
[2018-09-11 18:05] LABS: HEMATOCRIT 23.9 % (35.4-49); HEMOGLOBIN 7.9 GM/dL (11.7-16.9); MCHC 32.9 g/dl (32.0-35.9); MEAN CELL VOLUME 91.1 fl (80-96); MEAN PLT VOLUME 8.4 fl (7.5-11.1); PLATELET COUNT 206 K/MM3 (134-434); RBC 2.62 M/mm3 (4.00-5.60); RDW 16.9 % (11.9-15.9)
[2018-09-11] MEDS ORDERED: SODIUM CHLORIDE 250 ML IV PRN (19:07)
[2018-09-11] MEDS ORDERED: EPOETIN ALFA 20,000 UNIT/1 ML VIAL IVPUSH ONE (19:15)
[2018-09-11] MEDS ORDERED: CHLORHEXIDINE GLUCONATE 4% CLEANSER FOR DECOLONIZATION TP SCH (22:00)
[2018-09-11] MEDS: MUPIROCIN 2% TOPICAL OINTMENT FOR DECOLONIZATION NS SCH (22:17)
[2018-09-12] MEDS: INSULIN SLIDING SCALE (NOVOLOG) 1 VIAL SQ SCH ×4 (00:34→18:05)
[2018-09-12 00:45] LABS: BASO % 0.9 % (0-2.0); EOS % 0.9 % (0-4.5); HEMOGLOBIN 8.7 GM/dL (11.7-16.9); MCH 30.2 pg (25.7-33.7); MCHC 33.3 g/dl (32.0-35.9); MEAN CELL VOLUME 90.5 fl (80-96); MEAN PLT VOLUME 8.9 fl (7.5-11.1); MONO % 7.7 % (3.8-10.2); NEUT % 77.5 % (42.8-82.8); PLATELET COUNT 205 K/MM3 (134-434); RBC 2.88 M/mm3 (4.00-5.60); RDW 16.3 % (11.9-15.9); WHITE BLOOD COUNT 7.8 K/mm3 (4.0-10.0)
[2018-09-12 06:27] LABS: BASO % 0.9 % (0-2.0); EOS % 0.7 % (0-4.5); HEMATOCRIT 25.6 % (35.4-49); HEMOGLOBIN 8.7 GM/dL (11.7-16.9); LYMPH % 7.4 % (8-40); MCH 30.7 pg (25.7-33.7); MCHC 34.1 g/dl (32.0-35.9); MEAN CELL VOLUME 90.1 fl (80-96); MEAN PLT VOLUME 8.7 fl (7.5-11.1); MONO % 7.7 % (3.8-10.2); NEUT % 83.3 % (42.8-82.8); PLATELET COUNT 200 K/MM3 (134-434); RBC 2.84 M/mm3 (4.00-5.60); RDW 16.1 % (11.9-15.9); WHITE BLOOD COUNT 10.1 K/mm3 (4.0-10.0)
[2018-09-12 06:38] LABS: INR 1.11 (0.83-1.09); PROTHROMBIN TIME (PATIENT) 13.1 SEC (9.7-13.0)
[2018-09-12 06:41] LABS: ACTIVATED PTT 30.3 SECONDS (25.2-36.5)
[2018-09-12 07:54] LABS: ALK PHOS 91 U/L (45-117); ANION GAP 10 MMOL/L (8-16); BILIRUBIN,TOTAL 0.8 mg/dL (0.2-1); BLOOD UREA NITROGEN 20 mg/dL (7-18); CHLORIDE 103 mmol/L (98-107); CO2 27 mmol/L (21-32); CREATININE 2.2 mg/dL (0.55-1.3); GLUCOSE,RANDOM 164 mg/dL (74-106); MAGNESIUM 1.9 mg/dL (1.8-2.4); PHOSPHOROUS 2.6 mg/dL (2.5-4.9); POTASSIUM 3.5 mmol/L (3.5-5.1); SGOT/AST 4 U/L (15-37); SGPT/ALT 7 U/L (13-61); SODIUM 140 mmol/L (136-145); TOT PROT 4.9 g/dl (6.4-8.2)
--- NOTE | 2018-09-12 08:22 | PN ---
Progress Note (short form) - Note Progress Note: Patient seen and examined at bedside denies any further episodes of BRBPR since being admitted CTA negative for a source of bleed Hb stable at 8.7 s/p 2 units PRBCs patient for EGD and enteroscopy today Vital Signs Temperature 99 F 09/12/18 06:00 Pulse Rate 69 09/12/18 06:00 Respiratory Rate 18 09/12/18 06:00 Blood Pressure 125/32 L 09/12/18 06:00 O2 Sat by Pulse Oximetry (%) 100 09/11/18 22:00 Constitutional: Yes: No Distress, Calm Eyes: Yes: EOM Intact, Other (conjunctival pallor) HENT: Yes: Atraumatic, Normocephalic Neck: Yes: Supple Cardiovascular: Yes: Regular Rate and Rhythm, Other (paced) Respiratory: Yes: Diminished, Poor Air Entry, Other (poor respiratory effort) Gastrointestinal: Yes: Normal Bowel Sounds, Soft. No: Tenderness Edema: No Neurological: Yes: Alert, Oriented 09/11/18 09/11/18 09/12/18 06:21 17:40 00:00 WBC 9.0 7.8 RBC 2.62 L 2.88 L Hgb 7.9 L 8.7 L Hct 23.9 L 26.0 L MCV 91.1 90.5 MCHC 32.9 33.3 RDW 16.9 H 16.3 H Plt Count 206 205 Neutrophils % 77.5 Lymphocytes % 13.0 D Monocytes % 7.7 Eosinophils % 0.9 D Basophils % 0.9 INR Sodium Potassium Chloride Carbon Dioxide Anion Gap BUN Creatinine Blood Type O POSITIVE Antibody Screen Negative 09/12/18 09/12/18 09/12/18 05:30 05:30 05:30 WBC 10.1 H RBC 2.84 L Hgb 8.7 L Hct 25.6 L MCV 90.1 MCHC 34.1 RDW 16.1 H Plt Count 200 Neutrophils % 83.3 H Lymphocytes % 7.4 L D Monocytes % 7.7 Eosinophils % 0.7 Basophils % 0.9 INR 1.11 H Sodium 140 Potassium 3.5 Chloride 103 Carbon Dioxide 27 Anion Gap 10 BUN 20 H Creatinine 2.2 H Blood Type Antibody Screen 09/11/18 09:30 Blood Culture - Pending Blood - Peripheral Venous 09/11/18 10:00 Blood Culture - Pending Blood - Peripheral Venous 68M with multiple medical problems presents with BRBPR. Problem List: bright red blood per rectum-likely lower GI bleed but UGI bleed not ruled out ESRD on HD mild leukocytosis acute blood loss hypochromic normocytic anemia troponinemia-possible demand Atrial fibrillation questionable history of aortoenteric fistula CAD h/o NSTEMI combined systolic/distolic CHF s/p PPM ischemic cardiomyopathy DM HTN HLD Mitral regurgitation tricuspid regurgitation pulmonary HTN AAA s/p repair Current Active smoker Plan: Bleeding have ceased at this time GI consult appreciated patient is for EGD/Enteroscopy today for colonoscopy on 09/14/18 normal transfusion thresholds continue to hold plavix for now Nephrology consult appreciated- patient was dialyzed yesterday cardiology consult appreciated NPO pending procedure today then advance per GI Protonix gtt hold statin hold antihypertensives for now can consider DDAVP if patient continues to bleed BGM/ISS q6h extensively counselled on the importance of smoking cessation and the risks of continuing to smoke. Will transfer to med/surg CCTime 36 minutes Case discussed with Dr. Alvarez
[2018-09-12] MEDS: MUPIROCIN 2% TOPICAL OINTMENT FOR DECOLONIZATION NS SCH (09:35)
--- NOTE | 2018-09-12 09:47 | PN ---
Progress Note (short form) - Note Progress Note: s: no chest pain, palps, dizziness, lightheadedness, edema. Vital Signs: Vital Signs Period Temp Pulse Resp BP Sys/Lauren Pulse Ox Last 24 Hr 97.3 F-100 F 61-100 15-23 97-135/32-91 98-100 Constitutional: Yes: Well Nourished, No Distress, Calm Eyes: Yes: Conjunctiva Clear, EOM Intact HENT: Yes: Atraumatic, Normocephalic Neck: Yes: Supple, Trachea Midline Respiratory: Yes: Regular, CTA Bilaterally Gastrointestinal: Yes: Normal Bowel Sounds, Soft Cardiovascular: Yes: Regular Rate and Rhythm JVD: No Carotid Bruit: No PMI: Non-Displaced Heart Sounds: Yes: S1, S2 Musculoskeletal: No: Back Pain Extremities: No: Cold Edema: No Peripheral Pulses WNL: Yes Peripheral Pulses: 2+ Left Carotid, 2+ Right Carotid, 2+ Left Doralis Pedis, 2+ Right Dorsalis Pedis Integumentary: No: Jaundice Neurological: Yes: Alert, Oriented Psychiatric: No: Agitated Current Medications Bisacodyl (Dulcolax -) 20 mg PO ONCE ONE Stop: 09/13/18 20:01 Chlorhexidine Gluconate (Hibiclens For Decolonization -) 1 applic TP HS [facility] Last Admin: 09/11/18 22:18 Dose: 1 applic Pantoprazole Sodium 80 mg/ (Sodium Chloride) 100 mls @ 10 mls/hr IVPB Q10H [facility] Last Admin: 09/11/18 20:33 Dose: 10 mls/hr Sodium Chloride (Normal Saline -) 250 mls @ 3,000 mls/hr IV PRN PRN PRN Reason: Hypotension during Dialysis Stop: 09/12/18 19:06 Insulin Aspart (Novolog Vial Sliding Scale -) 1 vial SQ Q6HPO [facility]; Protocol Last Admin: 09/12/18 08:02 Dose: Not Given Mupirocin (Bactroban Ointment (For Decolonization) -) 1 applic NS BID [facility] Stop: 09/16/18 21:59 Last Admin: 09/12/18 09:35 Dose: 1 applic Assessment/Plan echo 10/2017: moderate concentric lvh. 1+ lve. mod-sev decreased LV sys fn, global. nl RV size. mod decreased RV sys fn. mod mitra. mod-sev mac. mod mr. mod-sev tr. rvsp > 60. trivial effusion. echo 11/2016: low nl lvef, mild lvh, nl rv, mitra, mod mr/tr, mod phtn mibi 11/2016: no ischemia EKG: V paced, 7 beat NSVT a/p: 68 m hx cad s/p nstemi/pci (11/2014 pt had chf with +trops so sent for [place] [facility] [place] had rota and GIOVANNI to pLAD, residual dLCx and ramus 50-60% both), dchf, htn, hld, dm, ckd, afib (plavix monotherapy, prior GIB on coumadin) cva, ppm ( biotronik 05/2012), remote AAA repair, pad s/p left fem stent 2015 and left toe amp here with GI bleed GI bleed, hypotension - received PRBC, manage per GI, primary - plan for EGD/[place] - holding plavix Chronic systolic HF, ischemic cardiomyopathy - HD for volume removal, currently appears euvolemic - holding home BB/Hydralazine for hypotension cad/pci: -stable, no cp/angina/acs -preserved lvef echo 2016 and no ischemia on 2017 mibi -holding home meds for GI bleed, including plavix htn: -holding bb, hydral, hypotensive hld: -holding statin afib,aflutter,atach: -rate controlled as pt has complete heart block with ppm -has hx of cva and was on AC and dapt previously before a prior GIB, and aortoenteric fistula. was followed by vascular at [facility], now by Dr. Gan. DAPT was deemed safe to resume in 2015 after LE stent. was on plavix monotherapy reportedly at home - now holding plavix for GI bleed VTach: - noted on prior admission while on milrinone, brief run 09/12 - holding bb, monitor on tele - replete lytes for K>4.0, Mg >2.0 ppm (biotronik for CHB): -outpatient monitoring remote aaa repair/pad s/p multiple interventions and toe amputations : -holding plavix, statin ESRD on HD - manage per renal
--- NOTE | 2018-09-12 10:05 | PN ---
Progress Note, Physician Chief Complaint: Pt lying in bed in no acute distress. Reports he is feeling well, denies further brbpr. Denies any chest pain, sob, n/v/d, dysuria - Current Medication List Current Medications: Active Medications Bisacodyl (Dulcolax -) 20 mg PO ONCE ONE Stop: 09/13/18 20:01 Chlorhexidine Gluconate (Hibiclens For Decolonization -) 1 applic TP HS [facility] Last Admin: 09/11/18 22:18 Dose: 1 applic Pantoprazole Sodium 80 mg/ (Sodium Chloride) 100 mls @ 10 mls/hr IVPB Q10H [facility] Last Admin: 09/11/18 20:33 Dose: 10 mls/hr Sodium Chloride (Normal Saline -) 250 mls @ 3,000 mls/hr IV PRN PRN PRN Reason: Hypotension during Dialysis Stop: 09/12/18 19:06 Insulin Aspart (Novolog Vial Sliding Scale -) 1 vial SQ Q6HPO [facility]; Protocol Last Admin: 09/12/18 08:02 Dose: Not Given Mupirocin (Bactroban Ointment (For Decolonization) -) 1 applic NS BID [facility] Stop: 09/16/18 21:59 Last Admin: 09/12/18 09:35 Dose: 1 applic - Objective Vital Signs: Vital Signs Temperature 100 F H 09/12/18 08:00 Pulse Rate 61 09/12/18 08:00 Respiratory Rate 18 09/12/18 08:00 Blood Pressure 125/51 L 09/12/18 08:00 O2 Sat by Pulse Oximetry (%) 100 09/11/18 22:00 Constitutional: Yes: No Distress, Calm Cardiovascular: Yes: Regular Rate and Rhythm Respiratory: Yes: Diminished, On Nasal O2. No: SOB, Tachypnea, Wheezes Gastrointestinal: Yes: Normal Bowel Sounds, Soft. No: Distention, Tenderness Extremities: Yes: WNL Edema: No Neurological: Yes: WNL, Alert, Oriented Psychiatric: Yes: WNL, Alert, Oriented Labs: CBC, BMP 09/12/18 05:30 09/12/18 05:30 INR, PTT INR 1.11 (0.83-1.09) H 09/12/18 05:30 Problem List - Problems (1) BRBPR (bright red blood per rectum) Assessment/Plan: improved since admission heme-occult positive egd w/ no source of bleeding possible lower GIB, colonoscopy on 09/14 hg/hct stable s/p 1 unit prbcs transfuse if hg<8 continue ppi drip GI following Code(s): K62.5 - HEMORRHAGE OF ANUS AND RECTUM (2) Acute blood loss anemia Assessment/Plan: as above Code(s): D62 - ACUTE POSTHEMORRHAGIC ANEMIA (3) ESRD (end stage renal disease) on dialysis Assessment/Plan: continue HD per nephrology Code(s): N18.6 - END STAGE RENAL DISEASE; Z99.2 - DEPENDENCE ON RENAL DIALYSIS (4) Coronary artery disease Assessment/Plan: no acute ACS s/p NSTEMI/PCI trend mild troponin elevation- suspect demand cardiology following Code(s): I25.10 - ATHSCL HEART DISEASE OF [place] CORONARY ARTERY W/O ANG PCTRS Qualifiers: Coronary Disease-Associated Artery/Lesion type: [place] coronary artery [place] vs. transplanted heart: [place] heart Associated angina: without angina pectoris (5) Diabetes Assessment/Plan: bgm insulin sliding scale/levemir Code(s): E11.9 - TYPE 2 DIABETES MELLITUS WITHOUT COMPLICATIONS Qualifiers: Diabetes mellitus type: other specified (including REZA) Diabetes mellitus longterm insulin use: without director long term care use Diabetes mellitus complication status: with hyperglycemia Qualified Code(s): E13.65 - Other specified diabetes mellitus with hyperglycemia (6) CHF (congestive heart failure) Assessment/Plan: euvolemic Code(s): I50.9 - HEART FAILURE, UNSPECIFIED Qualifiers: Heart failure type: combined systolic and diastolic Heart failure chronicity: chronic Qualified Code(s): I50.42 - Chronic combined systolic ( congestive) and diastolic (congestive) heart failure (7) Atrial fibrillation Assessment/Plan: rate controlled s/p ppm AC contraindicated 2/2 gib ccb/bb on hold due to hypotension Code(s): I48.91 - UNSPECIFIED ATRIAL FIBRILLATION Qualifiers: Atrial fibrillation type: chronic Qualified Code(s): I48.2 - Chronic atrial fibrillation (8) Hyperlipidemia Assessment/Plan: holding statin outpt monitoring Code(s): E78.5 - HYPERLIPIDEMIA, UNSPECIFIED (9) Hypertension Assessment/Plan: hypotensive hold antihypertensives Code(s): I10 - ESSENTIAL (PRIMARY) HYPERTENSION Qualifiers: Hypertension type: essential hypertension Qualified Code(s): I10 - Essential (primary) hypertension (10) PAD (peripheral artery disease) Assessment/Plan: s/p left fem stent 2016 and left toe amputation holding plavix Code(s): I73.9 - PERIPHERAL VASCULAR DISEASE, UNSPECIFIED (11) Abnormal abdominal CT scan Assessment/Plan: possible renal infarction? nephrology following UA/UC pending vascular evaluated- no evidence of aortoeroenteric fistula Code(s): R93.5 - ABN FINDINGS ON DX IMAGING OF ABD REGIONS, INC RETROPERITON (12) Fever Assessment/Plan: febrile to 100f blood/urine cultures ordered await infectious work up Code(s): R50.9 - FEVER, UNSPECIFIED Qualifiers: Encounter type: initial encounter (13) Hypokalemia Assessment/Plan: k3.5 kcl po 40meq x 1 monitor bmp Code(s): E87.6 - HYPOKALEMIA Assessment/Plan ICU level monitoring 35 minutes spent in reviewing chart, formulating plan
--- NOTE | 2018-09-12 10:28 | PN ---
Progress Note (short form) - Note Progress Note: Surgery Patient seen and examined at bedside with no complaints. He denies any further episodes of BRBPR since being admitted. CTA negative for a source of bleed. He received 2 units PRBCs last night and denies any chest pain, SOB, N/V/D, ABD pain, fever, chills or dizziness. Patient is on the schedule for endoscopy today with colonoscopy to follow later this week. Vital Signs Temp 100 F H 09/12/18 08:00 Pulse 61 09/12/18 08:00 Resp 18 09/12/18 08:00 BP 125/51 L 09/12/18 08:00 Pulse Ox 100 09/11/18 22:00 Intake & Output 09/11/18 09/11/18 09/12/18 11:59 23:59 11:59 Intake Total 40 120 Output Total 0 0 Balance 40 120 Weight 170 lb 128 lb 1.6 oz 126 lb 1 oz Intake: IV 40 120 protonix drip 40 120 Output: Urine 0 0 Void 0 0 Other: Voiding Method Toilet Height 5 ft 8 in 5 ft 8 in Body Mass Index (BMI) 25.8 19.5 Weight Measurement Method Built in Bedscale Built in [facility] Weight Measurement Method Est/Stated by Patient CBC, BMP 09/12/18 05:30 09/12/18 05:30 PE: A&Ox3, NAD Unlabored resp on 2L NC ABDOMEN: Soft, nontender, not distended, well healed scar at midline, no guarding, no rebound, no masses. No organomegaly. LOWER EXTREMITIES: Femoral pulses palpable and equal b/l. Left LE compartments soft, supple and non-tender to palpation, no edema foot warm and well perfused Right LE compartments soft, supple and non-tender to palpation, no edema foot Feel warm to the touch. SKIN: Warm, dry, normal turgor, no rashes or lesions noted. <Lucero Cruz - Last Filed: 09/12/18 10:29> - Note Progress Note: Upper endoscopy did not show the source of bleeding. No evidence for aortoenteric fistula. Colonoscopy pending. <Josh Gna - Last Filed: 09/12/18 15:57> Problem List - Problems (1) BRBPR (bright red blood per rectum) Assessment/Plan: 68 male with significant PMHX, acute GI bleed and no evidence of Aortoeroenteric fistula on CTA. currently stable s/p transfusion of 2 units PRBC. 1) Transfuse PRN 2) GI work up- plan for endoscopy and colonoscopy 3) Dialysis per renal 4) vascular to follow Evaluation and plan discussed with Dr Gan Code(s): K62.5 - HEMORRHAGE OF ANUS AND RECTUM <Lucero Cruz - Last Filed: 09/12/18 10:29>
[2018-09-12] MEDS ORDERED: KCL 10 MEQ IVPB 10 MEQ/100 ML INFUS.BAG IVPB SCH ×2 (10:30→15:30)
--- NOTE | 2018-09-12 11:29 | PN ---
Progress Note (short form) - Note Progress Note: GI Procedure Note: Please see scanned enteroscopy report. No bleeding lesions found. No active aortoduodenal fistula was found. Will proceed with colonoscopy on 09/14.
--- NOTE | 2018-09-12 11:34 | PN ---
Progress Note (short form) - Note Progress Note: Renal follow up for ESRD with Acute GI bleed Pt seen and examined in the ICU awake and alert s/p Endoscopy this am no further bleeding noted no abd pain denies any sob, cp, fever, chills, N/V/D Vital Signs Temperature 100 F H 09/12/18 08:00 Pulse Rate 61 09/12/18 08:00 Respiratory Rate 18 09/12/18 08:00 Blood Pressure 125/51 L 09/12/18 08:00 O2 Sat by Pulse Oximetry (%) 100 09/11/18 22:00 Intake & Output 09/09/18 09/10/18 09/11/18 09/12/18 23:59 23:59 23:59 23:59 Intake Total 40 320 Output Total 0 0 Balance 40 320 Weight 58.105 kg 57.181 kg NAD awake and alert neck supple RRR Dec BS, no rales soft NT/ND no LE edema, clubbing or cyanosis CBC, BMP 09/12/18 05:30 09/12/18 05:30 68 year old gentleman with hx of ESRD on HD, CAD s/p PCI, CHF, PPM, HTN, DM, CVA, Afib, Hx of steal syndrome with required ligation of AVF who presented with rectal bleeding with bright red blood and clots with acute anemia. #Acute GIB #ESRD on HD #Acute Anemia #hx of CHF #Hypodensity seen on kidney, may be infarction s/p Hd yesterday with 1 unit PRBC transfusion i Tolerated HD well s/p Endoscopy, GI following no urgent indication for further prbc transfusion next dialysis planned for tomorrow will given high dose Epogen with HD as well Suspected renal infarction seen on CT, not a candidate for A/C at this time Check UA and urine culture to r/o pylonephritis as well Thank you Beau Iraheta DO
--- NOTE | 2018-09-12 11:35 | PN ---
Teaching Attending Note Name of Resident: Fabian Parikh ATTENDING PHYSICIAN STATEMENT I saw and evaluated the patient. I reviewed the resident's note and discussed the case with the resident. I agree with the resident's findings and plan as documented. SUBJECTIVE: Pt seen and examined in the ICU. No further bleeding noted. Had EGD, enteroscopy without identifying source of bleed. Denies shortness of breath or chest pain. No dizziness or lightheadedness. OBJECTIVE: Vital Signs Period Temp Pulse Resp BP Sys/Lauren Pulse Ox Last 24 Hr 97.9 F-100 F 61-100 15-23 97-135/32-80 98-100 Intake & Output 09/09/18 09/10/18 09/11/18 09/12/18 23:59 23:59 23:59 23:59 Intake Total 40 320 Output Total 0 0 Balance 40 320 Weight 58.105 kg 57.181 kg Gen: NAD at rest Heart: RRR Lung: decreased breath sounds at the bases Abd: soft, nontender Ext: no edema CBC, BMP 09/12/18 05:30 09/12/18 05:30 Active Medications Bisacodyl (Dulcolax -) 20 mg PO ONCE ONE Stop: 09/13/18 20:01 Chlorhexidine Gluconate (Hibiclens For Decolonization -) 1 applic TP HS [facility] Last Admin: 09/11/18 22:18 Dose: 1 applic Pantoprazole Sodium 80 mg/ (Sodium Chloride) 100 mls @ 10 mls/hr IVPB Q10H [facility] Last Admin: 09/11/18 20:33 Dose: 10 mls/hr Sodium Chloride (Normal Saline -) 250 mls @ 3,000 mls/hr IV PRN PRN PRN Reason: Hypotension during Dialysis Stop: 09/12/18 19:06 Insulin Aspart (Novolog Vial Sliding Scale -) 1 vial SQ Q6HPO [facility]; Protocol Last Admin: 09/12/18 08:02 Dose: Not Given Mupirocin (Bactroban Ointment (For Decolonization) -) 1 applic NS BID [facility] Stop: 09/16/18 21:59 Last Admin: 09/12/18 09:35 Dose: 1 applic Polyethylene Glycol (Miralax (For Daily Use) -) 17 gm PO BID [facility] ASSESSMENT AND PLAN: Acute GI Bleed likely Lower Acute Blood Loss Anemia CAD s/p stents LV Diastolic Dysfunction Atrial Fibrillation s/p PPM h/o CVA CKD PAD HTN DM Hyperlipidemia h/o AAA repair - monitor H/H - transfuse as needed - for colonoscopy - empiric protonix - PO per GI - IVF as needed - monitor urine output, creatinine - rate control - holding antiplatelets, anticoagulation - DVT prophylaxis - can monitor on floor if no further bleeding noted critical care time spent in reviewing chart, evaluating patient and formulating plan 35 min
[2018-09-12] MEDS ORDERED: SODIUM CHLORIDE 250 ML IV PRN (14:52)
[2018-09-12] MEDS ORDERED: POTASSIUM CHLORIDE ORAL LIQUID 20 MEQ/15 ML PO ONE (15:30)
[2018-09-12] MEDS: PANTOPRAZOLE SODIUM 80 MG in SODIUM CHLORIDE 100 ML IVPB SCH (16:35)
[2018-09-12] MEDS: POLYETHYLENE GLYCOL 3350 119 GM BTL PO SCH (21:28)
[2018-09-12] MEDS ORDERED: MUPIROCIN 2% TOPICAL OINTMENT FOR DECOLONIZATION NS SCH (22:00)
[2018-09-12] MEDS ORDERED: POLYETHYLENE GLYCOL 3350 119 GM BTL PO SCH (22:00)
[2018-09-12] MEDS ORDERED: CHLORHEXIDINE GLUCONATE 4% CLEANSER FOR DECOLONIZATION TP SCH (22:00)
[2018-09-13] MEDS: INSULIN SLIDING SCALE (NOVOLOG) 1 VIAL SQ SCH ×4 (00:38→17:32)
[2018-09-13] MEDS: PANTOPRAZOLE SODIUM 80 MG in SODIUM CHLORIDE 100 ML IVPB SCH ×3 (02:43→17:58)
[2018-09-13 06:06] LABS: HBSAG SCREEN Negative (Negative); HEP B CORE AB, TOT Negative (Negative)
[2018-09-13 08:14] LABS: BASO % 0.6 % (0-2.0); EOS % 0.4 % (0-4.5); HEMATOCRIT 24.3 % (35.4-49); HEMOGLOBIN 8.1 GM/dL (11.7-16.9); MCH 30.2 pg (25.7-33.7); MCHC 33.2 g/dl (32.0-35.9); MEAN CELL VOLUME 91.1 fl (80-96); MEAN PLT VOLUME 8.5 fl (7.5-11.1); MONO % 9.2 % (3.8-10.2); NEUT % 83.8 % (42.8-82.8); PLATELET COUNT 198 K/MM3 (134-434); RBC 2.66 M/mm3 (4.00-5.60); WHITE BLOOD COUNT 12.3 K/mm3 (4.0-10.0)
[2018-09-13 08:34] LABS: ALBUMIN 2.1 g/dl (3.4-5.0); ANION GAP 7 MMOL/L (8-16); BLOOD UREA NITROGEN 31 mg/dL (7-18); CHLORIDE 106 mmol/L (98-107); CO2 28 mmol/L (21-32); CREATININE 3.7 mg/dL (0.55-1.3); GLUCOSE,RANDOM 158 mg/dL (74-106); POTASSIUM 4.2 mmol/L (3.5-5.1); SGOT/AST 6 U/L (15-37); SODIUM 142 mmol/L (136-145)
[2018-09-13 08:35] LABS: ALK PHOS 91 U/L (45-117); SGPT/ALT 9 U/L (13-61)
--- NOTE | 2018-09-13 09:33 | PN ---
Progress Note (short form) - Note Progress Note: Resting in NAD. No CP or SOB. No occult bleeding. No acute events overnight. OBJECTIVE: Intake & Output 09/10/18 09/11/18 09/12/18 09/13/18 23:59 23:59 23:59 23:59 Intake Total 40 1250 120 Output Total 0 0 Balance 40 1250 120 Weight 128 lb 1.6 oz 126 lb 1 oz 125 lb 6 oz Last Vital Signs Temp Pulse Resp BP Pulse Ox 99.3 F 72 21 H 123/63 100 09/13/18 06:03 09/13/18 06:03 09/13/18 06:03 09/13/18 06:03 09/12/18 22:50 Active Medications Bisacodyl (Dulcolax -) 20 mg PO ONCE ONE Stop: 09/13/18 20:01 Pantoprazole Sodium 80 mg/ (Sodium Chloride) 100 mls @ 10 mls/hr IVPB Q10H [facility] Last Admin: 09/13/18 02:43 Dose: 10 mls/hr Insulin Aspart (Novolog Vial Sliding Scale -) 1 vial SQ Q6HPO [facility]; Protocol Last Admin: 09/13/18 06:05 Dose: 3 unit Polyethylene Glycol (Miralax (For Daily Use) -) 17 gm PO BID [facility] Last Admin: 09/12/18 21:28 Dose: 17 gm Gen: NAD at rest Heart: RRR Lung: decreased breath sounds at the bases Abd: soft, nontender Ext: no edema Laboratory Results - last 24 hr 09/11/18 09/11/18 09/12/18 17:40 17:40 18:04 WBC RBC Hgb Hct MCV MCH MCHC RDW Plt Count MPV Absolute Neuts (auto) Neutrophils % Lymphocytes % Monocytes % Eosinophils % Basophils % Nucleated RBC % Sodium Potassium Chloride Carbon Dioxide Anion Gap BUN Creatinine Creat Clearance w eGFR POC Glucometer 139 Random Glucose Calcium Magnesium Total Bilirubin AST ALT Alkaline Phosphatase Troponin I Total Protein Albumin Hepatitis A Ab Total Negative Hep Bs Antigen Negative Hep Bs Antibody Non reactive Hep B Core Total Ab Negative Hep C Ab Diagnostic <0.1 09/13/18 09/13/18 09/13/18 00:37 06:04 06:45 WBC 12.3 H RBC 2.66 L Hgb 8.1 L Hct 24.3 L MCV 91.1 MCH 30.2 MCHC 33.2 RDW 17.0 H Plt Count 198 MPV 8.5 Absolute Neuts (auto) 10.3 H Neutrophils % 83.8 H Lymphocytes % 6.0 L Monocytes % 9.2 Eosinophils % 0.4 Basophils % 0.6 Nucleated RBC % 0 Sodium Potassium Chloride Carbon Dioxide Anion Gap BUN Creatinine Creat Clearance w eGFR POC Glucometer 192 226 Random Glucose Calcium Magnesium Total Bilirubin AST ALT Alkaline Phosphatase Troponin I Total Protein Albumin Hepatitis A Ab Total Hep Bs Antigen Hep Bs Antibody Hep B Core Total Ab Hep C Ab Diagnostic 09/13/18 09/13/18 06:45 06:45 WBC RBC Hgb Hct MCV MCH MCHC RDW Plt Count MPV Absolute Neuts (auto) Neutrophils % Lymphocytes % Monocytes % Eosinophils % Basophils % Nucleated RBC % Sodium 142 Potassium 4.2 Chloride 106 Carbon Dioxide 28 Anion Gap 7 L BUN 31 H Creatinine 3.7 H Creat Clearance w eGFR 16.32 POC Glucometer Random Glucose 158 H Calcium 7.0 L Magnesium 2.0 Total Bilirubin 1.0 AST 6 L ALT 9 L Alkaline Phosphatase 91 Troponin I 0.16 H Total Protein 5.0 L Albumin 2.1 L Hepatitis A Ab Total Hep Bs Antigen Hep Bs Antibody Hep B Core Total Ab Hep C Ab Diagnostic ASSESSMENT AND PLAN: Acute GI Bleed likely Lower Acute Blood Loss Anemia CAD s/p stents LV Diastolic Dysfunction Atrial Fibrillation s/p PPM h/o CVA CKD PAD HTN DM Hyperlipidemia h/o AAA repair - monitor H/H - transfuse as needed - Endoscopic evaluation on 09/14 - PPI - PO per GI - monitor urine output, creatinine - rate control - holding antiplatelets, anticoagulation - DVT prophylaxis Dr Hogan
[2018-09-13] MEDS: POLYETHYLENE GLYCOL 3350 119 GM BTL PO SCH ×2 (09:47→22:07)
[2018-09-13] MEDS ORDERED: SODIUM CHLORIDE 250 ML IV PRN (12:00)
[2018-09-13] MEDS ORDERED: EPOETIN ALFA 20,000 UNIT/1 ML VIAL IVPUSH ONE (12:00)
--- NOTE | 2018-09-13 12:32 | PN ---
Progress Note, Physician Chief Complaint: Pt lying in bed in no acute distress. Reports he is feeling well, denies further brbpr. Denies any chest pain, sob, n/v/d, dysuria - Current Medication List Current Medications: Active Medications Bisacodyl (Dulcolax -) 20 mg PO ONCE ONE Stop: 09/13/18 20:01 Pantoprazole Sodium 80 mg/ (Sodium Chloride) 100 mls @ 10 mls/hr IVPB Q10H [facility] Last Admin: 09/13/18 02:43 Dose: 10 mls/hr Sodium Chloride (Normal Saline -) 250 mls @ 3,000 mls/hr IV PRN PRN PRN Reason: Hypotension during Dialysis Stop: 09/14/18 11:59 Insulin Aspart (Novolog Vial Sliding Scale -) 1 vial SQ Q6HPO [facility]; Protocol Last Admin: 09/13/18 11:02 Dose: 3 unit Polyethylene Glycol (Miralax (For Daily Use) -) 17 gm PO BID [facility] Last Admin: 09/13/18 09:47 Dose: 17 gm - Objective Vital Signs: Vital Signs Temperature 98.7 F 09/13/18 09:00 Pulse Rate 70 09/13/18 11:45 Respiratory Rate 18 09/13/18 11:45 Blood Pressure 123/60 09/13/18 11:45 O2 Sat by Pulse Oximetry (%) 100 09/12/18 22:50 Constitutional: Yes: No Distress Cardiovascular: Yes: Regular Rate and Rhythm Respiratory: Yes: Regular, CTA Bilaterally. No: Accessory Muscle Use, SOB, Tachypnea, Wheezes Gastrointestinal: Yes: WNL, Normal Bowel Sounds, Soft. No: Distention, Tenderness Genitourinary: Yes: WNL Extremities: Yes: WNL Edema: No Neurological: Yes: WNL, Alert, Oriented Psychiatric: Yes: WNL, Alert, Oriented Labs: CBC, BMP 09/13/18 06:45 09/13/18 06:45 INR, PTT INR 1.11 (0.83-1.09) H 09/12/18 05:30 Assessment/Plan (1) BRBPR (bright red blood per rectum) Assessment/Plan: improved since admission heme-occult positive egd w/ no source of bleeding possible lower GIB, colonoscopy tmrw hg/hct mild drop s/p 1 unit prbcs will transfuse 1unit today continue ppi drip GI following Code(s): K62.5 - HEMORRHAGE OF ANUS AND RECTUM (2) Acute blood loss anemia Assessment/Plan: as above Code(s): D62 - ACUTE POSTHEMORRHAGIC ANEMIA (3) ESRD (end stage renal disease) on dialysis Assessment/Plan: continue HD per nephrology Code(s): N18.6 - END STAGE RENAL DISEASE; Z99.2 - DEPENDENCE ON RENAL DIALYSIS (4) Coronary artery disease Assessment/Plan: no acute ACS s/p NSTEMI/PCI cardiology following Code(s): I25.10 - ATHSCL HEART DISEASE OF [place] CORONARY ARTERY W/O ANG PCTRS Qualifiers: Coronary Disease-Associated Artery/Lesion type: [place] coronary artery [place] vs. transplanted heart: [place] heart Associated angina: without angina pectoris (5) Diabetes Assessment/Plan: bgm insulin sliding scale/levemir Code(s): E11.9 - TYPE 2 DIABETES MELLITUS WITHOUT COMPLICATIONS Qualifiers: Diabetes mellitus type: other specified (including REZA) Diabetes mellitus fdc insulin use: without intermediate project manager use Diabetes mellitus complication status: with hyperglycemia Qualified Code(s): E13.65 - Other specified diabetes mellitus with hyperglycemia (6) CHF (congestive heart failure) Assessment/Plan: euvolemic Code(s): I50.9 - HEART FAILURE, UNSPECIFIED Qualifiers: Heart failure type: combined systolic and diastolic Heart failure chronicity: chronic Qualified Code(s): I50.42 - Chronic combined systolic ( congestive) and diastolic (congestive) heart failure (7) Atrial fibrillation Assessment/Plan: rate controlled s/p ppm AC contraindicated 2/2 gib ccb/bb on hold due to hypotension Code(s): I48.91 - UNSPECIFIED ATRIAL FIBRILLATION Qualifiers: Atrial fibrillation type: chronic Qualified Code(s): I48.2 - Chronic atrial fibrillation (8) Hyperlipidemia Assessment/Plan: holding statin outpt monitoring Code(s): E78.5 - HYPERLIPIDEMIA, UNSPECIFIED (9) Hypertension Assessment/Plan: hypotensive hold antihypertensives Code(s): I10 - ESSENTIAL (PRIMARY) HYPERTENSION Qualifiers: Hypertension type: essential hypertension Qualified Code(s): I10 - Essential (primary) hypertension (10) PAD (peripheral artery disease) Assessment/Plan: s/p left fem stent 2016 and left toe amputation holding plavix Code(s): I73.9 - PERIPHERAL VASCULAR DISEASE, UNSPECIFIED (11) Abnormal abdominal CT scan Assessment/Plan: possible renal infarction? nephrology following UA/UC pending vascular evaluated- no evidence of aortoeroenteric fistula Code(s): R93.5 - ABN FINDINGS ON DX IMAGING OF ABD REGIONS, INC RETROPERITON (12) Fever Assessment/Plan: resolved blood cultures neg Code(s): R50.9 - FEVER, UNSPECIFIED Qualifiers: Encounter type: initial encounter (13) Hypokalemia Assessment/Plan: resolved Code(s): E87.6 - HYPOKALEMIA
[2018-09-13] MEDS ORDERED: PEG3350/SOD SULF,BICARB,CL/KCL 4,000 ML SOLN.RECON PO ONE ×2 (13:00)
--- NOTE | 2018-09-13 14:21 | PN ---
Progress Note (short form) - Note Progress Note: Renal follow up for ESRD with Acute GI bleed Pt seen and examined during dialysis BP stable, access functioning well no cp, sob, abd pain no further bleeding Vital Signs Temperature 98.7 F 09/13/18 09:00 Pulse Rate 113 H 09/13/18 14:02 Respiratory Rate 18 09/13/18 11:45 Blood Pressure 82/50 L 09/13/18 14:02 O2 Sat by Pulse Oximetry (%) 98 09/13/18 09:00 Intake & Output 09/10/18 09/11/18 09/12/18 09/13/18 23:59 23:59 23:59 23:59 Intake Total 40 1250 320 Output Total 0 0 Balance 40 1250 320 Weight 58.105 kg 57.181 kg 56.869 kg NAD awake and alert neck supple RRR Dec BS, no rales soft NT/ND no LE edema, clubbing or cyanosis CBC, BMP 09/13/18 06:45 09/13/18 06:45 Current Medications Bisacodyl (Dulcolax -) 20 mg PO ONCE ONE Stop: 09/13/18 20:01 Pantoprazole Sodium 80 mg/ (Sodium Chloride) 100 mls @ 10 mls/hr IVPB Q10H [facility] Last Admin: 09/13/18 02:43 Dose: 10 mls/hr Sodium Chloride (Normal Saline -) 250 mls @ 3,000 mls/hr IV PRN PRN PRN Reason: Hypotension during Dialysis Stop: 09/14/18 11:59 Insulin Aspart (Novolog Vial Sliding Scale -) 1 vial SQ Q6HPO [facility]; Protocol Last Admin: 09/13/18 11:02 Dose: 3 unit Polyethylene Glycol (Miralax (For Daily Use) -) 17 gm PO BID [facility] Last Admin: 09/13/18 09:47 Dose: 17 gm 68 year old gentleman with hx of ESRD on HD, CAD s/p PCI, CHF, PPM, HTN, DM, CVA, Afib, Hx of steal syndrome with required ligation of AVF who presented with rectal bleeding with bright red blood and clots with acute anemia. #Acute GIB #ESRD on HD #Acute Anemia #hx of CHF #Hypodensity seen on kidney, may be infarction Tolerating dialysis well will transfuse 1 unit prbc as per PMD request, can be given off dialysis for colonoscpy tomorrow Dose all meds for intermittent HD Thank you Beau Iraheta DO
[2018-09-13 15:55] VITALS: BMI 19.0
--- NOTE | 2018-09-13 16:39 | PN ---
Progress Note (short form) - Note Progress Note: s: no chest pain, palps, dizziness, lightheadedness, edema. Vital Signs: Vital Signs Period Temp Pulse Resp BP Sys/Lauren Pulse Ox Last 24 Hr 98.7 F-99.3 F 69-113 18-21 82-148/50-85 98-100 Constitutional: Yes: Well Nourished, No Distress, Calm Eyes: Yes: Conjunctiva Clear, EOM Intact HENT: Yes: Atraumatic, Normocephalic Neck: Yes: Supple, Trachea Midline Respiratory: Yes: Regular, CTA Bilaterally Gastrointestinal: Yes: Normal Bowel Sounds, Soft Cardiovascular: Yes: Regular Rate and Rhythm JVD: No Carotid Bruit: No PMI: Non-Displaced Heart Sounds: Yes: S1, S2 Musculoskeletal: No: Back Pain Extremities: No: Cold Edema: No Peripheral Pulses WNL: Yes Peripheral Pulses: 2+ Left Carotid, 2+ Right Carotid, 2+ Left Doralis Pedis, 2+ Right Dorsalis Pedis Integumentary: No: Jaundice Neurological: Yes: Alert, Oriented Psychiatric: No: Agitated Current Medications Bisacodyl (Dulcolax -) 20 mg PO ONCE ONE Stop: 09/13/18 20:01 Pantoprazole Sodium 80 mg/ (Sodium Chloride) 100 mls @ 10 mls/hr IVPB Q10H [facility] Last Admin: 09/13/18 02:43 Dose: 10 mls/hr Sodium Chloride (Normal Saline -) 250 mls @ 3,000 mls/hr IV PRN PRN PRN Reason: Hypotension during Dialysis Stop: 09/14/18 11:59 Insulin Aspart (Novolog Vial Sliding Scale -) 1 vial SQ Q6HPO [facility]; Protocol Last Admin: 09/13/18 11:02 Dose: 3 unit Polyethylene Glycol (Miralax (For Daily Use) -) 17 gm PO BID [facility] Last Admin: 09/13/18 09:47 Dose: 17 gm Assessment/Plan echo 10/2017: moderate concentric lvh. 1+ lve. mod-sev decreased LV sys fn, global. nl RV size. mod decreased RV sys fn. mod mitra. mod-sev mac. mod mr. mod-sev tr. rvsp > 60. trivial effusion. echo 11/2016: low nl lvef, mild lvh, nl rv, mitra, mod mr/tr, mod phtn mibi 11/2016: no ischemia EKG: V paced, 7 beat NSVT a/p: 68 m hx cad s/p nstemi/pci (11/2014 pt had chf with +trops so [place] [facility] [place] rota and GIOVANNI to pLAD, residual dLCx and ramus 50-60% both), dchf, htn, hld, dm, ckd, afib (plavix monotherapy, prior GIB on coumadin) cva, ppm ( biotronik 05/2012), remote AAA repair, pad s/p left fem stent 2015 and left toe amp here with GI bleed GI bleed, hypotension - received PRBC, manage per GI, primary - EGD no source of bleed, plan for colonoscopy - holding plavix Chronic systolic HF, ischemic cardiomyopathy - HD for volume removal, currently appears euvolemic - holding home BB/Hydralazine for hypotension cad/pci: -stable, no cp/angina/acs -preserved lvef echo 2016 and no ischemia on 2017 mibi -holding home meds for GI bleed, including plavix htn: -holding bb, hydral, hypotensive hld: -holding statin afib,aflutter,atach: -rate controlled as pt has complete heart block with ppm -has hx of cva and was on AC and dapt previously before a prior GIB, and aortoenteric fistula. was followed by vascular at [facility], now by Dr. Gan. DAPT was deemed safe to resume in 2016 after LE stent. was on plavix monotherapy reportedly at home - now holding plavix for GI bleed VTach: - noted on prior admission while on milrinone, brief run 09/12 - holding bb, monitor on tele - replete lytes for K>4.0, Mg >2.0 ppm (biotronik for CHB): -outpatient monitoring remote aaa repair/pad s/p multiple interventions and toe amputations : -holding plavix, statin ESRD on HD - manage per renal
[2018-09-13] MEDS ORDERED: BISACODYL 5 MG TABLET.DR (FP) PO ONE ×2 (20:00)
[2018-09-13 22:11] VITALS: BP 140/66; PULSE 70; TEMP 98.7
[2018-09-14] MEDS: INSULIN SLIDING SCALE (NOVOLOG) 1 VIAL SQ SCH
[2018-09-14] MEDS ORDERED: SODIUM BICARBONATE 8.4% 50 MEQ/50 ML VIAL ONE (05:41)
--- NOTE | 2018-09-14 05:50 | PN ---
Progress Note (short form) - Note Progress Note: Called to intubate this 68 y/o male in cardiopulmonary arrest. ACLS in progress upon arrival. Pt. was intubated under direct laryngoscopy using a #8.0 endotracheal tube. Position confirmed by bilateral breath sounds.
--- NOTE | 2018-09-14 06:05 | PN ---
Progress Note (short form) - Note Progress Note: called , Lizbeth Howard, explained code 99 and 's current status. no advance directives. explained CPR and intubation, she said that her would have never wanted to be intubated and requested that comfort measures be the focus at the moment.
--- NOTE | 2018-09-14 06:21 | HOSP ---
Physical Examination Vital Signs: Vital Signs Temperature 98.7 F 09/13/18 22:09 Pulse Rate 70 09/13/18 22:09 Respiratory Rate 20 09/13/18 22:09 Blood Pressure 140/66 09/13/18 22:09 O2 Sat by Pulse Oximetry (%) 99 09/13/18 21:00 Labs: CBC, BMP 09/13/18 06:45 09/13/18 06:45 Hospitalist Encounter Assessment: code 99 was called - at 5;35am- patient was not responsive and pulseless; initial rhythm was asystole, patient intubated at 5;40 ; unclear how long patient was down for patients was called and she only wanted comfort measures, ACLS protocol was stopped and patient was extubated . (please see code sheet for all details) Visit type - Emergency Visit Emergency Visit: Yes ED Registration Date: 09/11/18 Care time: The patient presented to the Emergency Department on the above date and was hospitalized for further evaluation of their emergent condition. - New Patient This patient is new to me today: Yes Date on this admission: 09/14/18 - Critical Care Critical Care patient: No
--- NOTE | 2018-09-14 09:21 | DS ---
Physical Examination Vital Signs: Vital Signs Temperature 98.7 F 09/13/18 22:09 Pulse Rate 70 09/13/18 22:09 Respiratory Rate 20 09/13/18 22:09 Blood Pressure 140/66 09/13/18 22:09 O2 Sat by Pulse Oximetry (%) 99 09/13/18 21:00 Labs: CBC, BMP 09/13/18 06:45 09/13/18 06:45 Discharge Summary Reason For Visit: LOWER GASTROINT HEMORRHAGE,ESRD,HEMORRHAGE REQ Current Active Problems Abnormal abdominal CT scan (Acute) Acute blood loss anemia (Acute) Atrial fibrillation (Acute) BRBPR (bright red blood per rectum) (Acute) CHF (congestive heart failure) (Acute) ESRD (end stage renal disease) on dialysis (Acute) Fever (Acute) Hemorrhage requiring transfusion (Acute) Hyperlipidemia (Acute) Hypokalemia (Acute) PAD (peripheral artery disease) (Acute) Hospital Course: is a pleasant 68 year old male w/ pmh of ESRD on HD, CAD s/p NSTEMI/ PCI, CHF, IDDM, HTN, HLD, , CVA, afib, pad s/p left fem stent 2015 and left toe amputation admitted for acute blood loss anemia 2/2 GIB. Pt reports having BRBPR at home. Upon admission ,pt was hypotensive with acute anemia. Pt received total 2 units prbcs resulting in stable hg/hct and blood pressure. Pt underwent EGD w/ no source of bleeding found. Pt has been hemodynamically stable over the last few days without any complaints. Pt was scheduled for colonoscopy this am. Per nursing and MD notes overnight, pt was found unresponsive this am where cpr/intubation performed, upon speaking with his , he was made comfortable and he was pronounced at 05:43am. Pt's PCP informed of . Condition: Fair - Instructions Referrals: Zion Ruth MD [Primary Care Provider] - - Home Medications Comprehensive Discharge Medication List: Ambulatory Orders Atorvastatin Ca [Lipitor] 40 mg PO DAILY 02/27/16 Clopidogrel Bisulfate [Plavix -] 75 mg PO DAILY #30 tablet 03/24/16 Calcium Acetate [Phoslo -] 667 mg PO TIDCM #90 capsule 12/08/17 Metoprolol Succinate [Toprol XL -] 50 mg PO BID #60 tab.sr.24h 12/08/17 hydrALAZINE HCL [Apresoline -] 50 mg PO TID #90 tablet 12/08/17 Diltiazem Cd [Cardizem Cd -] 240 mg PO DAILY 03/06/18 Insulin Aspart [Novolog Flexpen] 1 unit SQ ACHS 09/11/18 Insulin Detemir [Levemir Flextouch] 12 unit SQ DAILY 09/11/18 Tamsulosin HCl [Flomax] 0.4 mg PO HS 09/11/18
[2018-09-14] MEDS ORDERED: PANTOPRAZOLE 40 MG TABLET (FP) PO SCH (10:00)
== END 2018-09-14 09:30 | disposition expired | DRG 377 ==
LOC: JER 05:41 → JERBED 06:24 → JICU 15:02 → J6S 09-12 14:51
PROVIDERS: ADMIT Hospitalist; ATTEND Nurse Practitioner Family
PROC: 5A1D70Z Performance of Urinary Filtration, Intermittent, Less than 6 Hours Per Day (ICD-10-PCS; 2018-09-11)
PROC: 30233N1 Transfusion of Nonautologous Red Blood Cells into Peripheral Vein, Percutaneous Approach (ICD-10-PCS; 2018-09-11)
PROC: 0DJ08ZZ Inspection of Upper Intestinal Tract, Via Natural or Artificial Opening Endoscopic (ICD-10-PCS; 2018-09-12)
PROC: 5A1D70Z Performance of Urinary Filtration, Intermittent, Less than 6 Hours Per Day (ICD-10-PCS; 2018-09-13)
PROC: 0BH17EZ Insertion of Endotracheal Airway into Trachea, Via Natural or Artificial Opening (ICD-10-PCS; principal; 2018-09-14)
PROC: 5A12012 Performance of Cardiac Output, Single, Manual (ICD-10-PCS; 2018-09-14)
DX: K92.2 Gastrointestinal hemorrhage, unspecified (principal); N18.6 End stage renal disease; I13.2 Hypertensive heart and chronic kidney disease with heart failure and with stage 5 chronic kidney disease, or end stage renal disease; I50.42 Chronic combined systolic (congestive) and diastolic (congestive) heart failure; K63.2 Fistula of intestine; D62 Acute posthemorrhagic anemia; I24.8 Other forms of acute ischemic heart disease; I48.92 Unspecified atrial flutter; I47.1 Supraventricular tachycardia; I48.91 Unspecified atrial fibrillation; I25.10 Atherosclerotic heart disease of native coronary artery without angina pectoris; D72.829 Elevated white blood cell count, unspecified; I95.1 Orthostatic hypotension; I08.1 Rheumatic disorders of both mitral and tricuspid valves; E11.22 Type 2 diabetes mellitus with diabetic chronic kidney disease; E11.51 Type 2 diabetes mellitus with diabetic peripheral angiopathy without gangrene; K22.2 Esophageal obstruction; K44.9 Diaphragmatic hernia without obstruction or gangrene; I27.20 Pulmonary hypertension, unspecified; R93.5 Abnormal findings on diagnostic imaging of other abdominal regions, including retroperitoneum; R50.9 Fever, unspecified; K40.90 Unilateral inguinal hernia, without obstruction or gangrene, not specified as recurrent; F17.210 Nicotine dependence, cigarettes, uncomplicated; E87.6 Hypokalemia; I46.9 Cardiac arrest, cause unspecified; Z99.2 Dependence on renal dialysis; I25.2 Old myocardial infarction; Z86.73 Personal history of transient ischemic attack (TIA), and cerebral infarction without residual deficits; Z95.0 Presence of cardiac pacemaker; Z95.5 Presence of coronary angioplasty implant and graft; Z89.422 Acquired absence of other left toe(s)
CPT/HCPCS: 36415; 36430; 36511; 71045-TC-FY; 74174-TC; 80053; 82272; 82550; 82962; 83605; 83735; 84100; 84484; 85025; 85027; 85610; 85730; 86704; 86706; 86708; 86803; 86850; 86900; 86901; 86922; 87040; 87340; 93005; 93010; 99285-25; J0885; J7030; P9038; P9058